=== PATIENT | male | born 1930 | race Caucasian/White ===

== ENCOUNTER 2016-06-15 02:25 | Emergency (ER) | payer MEDICARE ==
[~2016-06-15] VITALS: Ht 170.2 cm; Wt 75.0 kg
[~2016-06-15 02:25] MED LIST: ADVA250A INH; ALBU1AER INH; CALCTAB5 PO; CARB200 PO; DOCU1CAP39 PO; FE T325T PO; FOSA70TA PO; LEVA750T PO; LEVE500 PO; LORTA5 PO; MEGE40TA PO; MIRA33504 PO; MIRA50TA PO; MONT10TA2 PO; PRED10PA PO; PRED20 PO; PROP1TAB66 PO; RIVA10 PO; VITA50TA30 PO; [UNRECOGNIZED DRUG - CODE] PO
[2016-06-15 02:28] VITALS: BP 157/89; PULSE 82; RESP 20; TEMP 98.4; O2SAT 96
[2016-06-15] MEDS ORDERED: SODIUM CHLORIDE 0.9% FLUSH 5 ML FLUSH IVF PRN (02:45)
[2016-06-15] MEDS ORDERED: RESP: ALBUTEROL 2.5 MG/IPRATROPIUM 0.5 MG NEB (SCH) INH ONE (02:45)
[2016-06-15] MEDS ORDERED: VITA50TA30 PO (03:09)
[2016-06-15] MEDS ORDERED: BIO-POW TOPICAL (03:09)
[2016-06-15] MEDS ORDERED: CARB200T PO (03:09)
[2016-06-15] MEDS ORDERED: FLUT1INH INH (03:09)
[2016-06-15] MEDS ORDERED: DOCU100C PO (03:09)
[2016-06-15] MEDS ORDERED: CALCTAB70 PO (03:09)
[2016-06-15] MEDS ORDERED: VENTAER INH ×2 (03:09→05:35)
[2016-06-15] MEDS ORDERED: FERR325T PO (03:09)
[2016-06-15] MEDS ORDERED: MIRA50TA PO (03:09)
[2016-06-15] MEDS ORDERED: CLOP75TA PO (03:09)
[2016-06-15] MEDS ORDERED: LEVO50TA4 PO (03:09)
[2016-06-15] MEDS ORDERED: MAPA500C PO (03:09)
[2016-06-15] MEDS ORDERED: PROP10TA6 PO (03:09)
[2016-06-15] MEDS ORDERED: LEVE500T8 PO (03:09)
[2016-06-15] MEDS ORDERED: AMMO12LO TOPICAL (03:09)
[2016-06-15] MEDS ORDERED: ATOR20TA15 PO (03:09)
[2016-06-15] MEDS ORDERED: ALEN1TAB48 PO (03:09)
[2016-06-15] MEDS ORDERED: MONT10TA4 PO (03:09)
[2016-06-15] MEDS ORDERED: BOUDPST (03:09)
[2016-06-15] MEDS ORDERED: PRESCAP6 PO (03:09)
[2016-06-15 03:23] LABS: HEMATOCRIT 32.2 % (39.0-51.0); MEAN CELL VOLUME 91.7 FL (80.0-100.0); MEAN CORPUSCULAR HGB CONC 34.9 % (32.0-36.0); PLATELET COUNT 158 TH/MM3 (150-450); RED BLOOD COUNT 3.51 MIL/MM3 (4.50-5.90); WHITE BLOOD COUNT 12.7 TH/MM3 (4.0-11.0)
[2016-06-15 03:26] LABS: HEMO FLAGS AUTO DIFF
[2016-06-15] MEDS: RESP: ALBUTEROL 2.5 MG/3 ML NEB (SCH) INH ×2 (03:30→03:31)
[2016-06-15 03:31] VITALS: O2SAT 95
[2016-06-15 03:31] LABS: INTERNATIONAL NORMALIZED RATIO 1.1 RATIO; PROTHROMBIN TIME - PATIENT 12.4 SEC (9.8-11.6)
--- NOTE | 2016-06-15 03:44 | PD ---
HPI Chief Complaint: Respiratory Symptoms Time Seen by Provider: 02:38 Travel History International Travel<30 days: No Contact w/Intl Traveler<30days: No Traveled to known affect area: No History of Present Illness HPI 85yo M with PMH of COPD, anxiety/depression, HLD was sent here from [facility] living for sob since yesterday. +Cough. Denies any fever , chest pain, n/v, abdominal pain, weakness or numbness. Pt is AAOx2. Pt was wheezing as per EVAC and given duonebs x2, methylprednisolone. Pt states he was getting dress from his walker and when he leaned forward to put pants on he fell forward on 06/13/16. As per the paper work, pt had xray right ribs that showed no acute fracture or PTX. Pt also had xray right foot that showed acute to subacute fracture of head of 2nd and 3rd metatarsal bone. PFSH Past Medical History Arthritis: Yes Asthma: Yes Autoimmune Disease: No Blood Disorders: No Anxiety: No Depression: No Heart Rhythm Problems: No Cancer: Yes (prostate cancer) Cardiac Catheterization: Yes (NEG) Cardiovascular Problems: No High Cholesterol: Yes Chemotherapy: No Chest Pain: No Congestive Heart Failure: No COPD: Yes Cerebrovascular Accident: Yes Diabetes: No Diminished Hearing: Yes Endocrine: No Gastrointestinal Disorders: Yes (reflux) GERD: Yes Glaucoma: No Genitourinary: Yes (urinary incontinence) Headaches: Yes Hepatitis: No Hiatal Hernia: No Hypertension: Yes Immune Disorder: No Implanted Vascular Access Dvce: Yes Kidney Stones: No Musculoskeletal: Yes (OK. HIP FX., PELVIC FX.) Neurologic: Yes (hx of seizures, lying flat will make him dizzy hx of vertigo ) Psychiatric: No Reproductive: No Respiratory: Yes (COPD) Immunizations Current: Yes Migraines: No Myocardial Infarction: No Radiation Therapy: No Renal Failure: No Seizures: Yes Sickle Cell Disease: No Sleep Apnea: No Thyroid Disease: No Ulcer: No Tetanus Vaccination: Unknown Past Surgical History Abdominal Surgery: Yes (peg tube placement november 2014, REMOVED) AICD: No Appendectomy: Yes ( CHILD) Arteriovenous Shunt: No Body Medical Devices: HARDWARE OK. 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) Endocrine Surgery: No Eye Surgery: Yes (ok cataract) Genitourinary Surgery: Yes (prostate cancer removal) Gynecologic Surgery: No Insulin Pump: No Joint Replacement: No Neurologic Surgery: No Oral Surgery: No Pacemaker: No Thoracic Surgery: No Tonsillectomy: Yes Other Surgery: Yes (PROSTATECTOMY 2000) Family History Family Myocardial Infarction: Yes (FATHER AT 99 Y/O ) Social History Alcohol Use: No Tobacco Use: No Substance Use: No Allergies-Medications (Allergen,Severity, Reaction): Coded Allergies: Augmentin (Verified Allergy, Severe, Shortness of Breath, 06/15/16) Imipramine (Verified Allergy, Severe, SEIZURE, 06/15/16) Primidone (Verified Allergy, Severe, SEIZURE, 06/15/16) Sulfa (Verified Allergy, Unknown, Rash, 06/15/16) *MDRO Multi-Drug Resistant Organism (Unverified Adverse Reaction, Unknown , 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 MRSA PCR Screen negative 08/25/14 and 08/27/14. Reported Meds & Prescriptions Reported Meds & Active Scripts Active Acetaminophen 325 Mg Tab 325 Mg PO Q4-6H PRN Zithromax Z-Antonio (Azithromycin) 250 Mg Dspk 250 Mg PO DIRECTED 500 MG (2 tabs) day 1, then 1 tab days 2-5. Prednisone 20 Mg Tab 20 Mg PO BID 5 Days Ventolin Hfa 18 GM Inh (Albuterol Sulfate) 90 Mcg/Act Aer 2 Puff INH Q4H PRN Reported Vitamin B-6 (Pyridoxine HCl) 50 Mg Tab 50 Mg PO DAILY Ventolin Hfa 18 GM Inh (Albuterol Sulfate) 90 Mcg/Act Aer 2 Puff INH Q6H PRN Propranolol (Propranolol HCl) 10 Mg Tab 10 Mg PO Q12HR Preservision-Lutein (Multiple Vitamins W/ Minerals) 1 Cap 1 Cap PO DAILY Bio-Statin Powder (Nystatin) 1 Pow Pow 100,000 Units TOPICAL TID Myrbetriq (Mirabegron) 50 Mg Tab 50 Mg PO DAILY Montelukast (Montelukast Sodium) 10 Mg Tab 10 Mg PO HS Mapap (Acetaminophen) 500 Mg Cap 500 Mg PO Q4-6H PRN Levothyroxine (Levothyroxine Sodium) 50 Mcg Tab 50 Mcg PO DAILY Levetiracetam 500 Mg Tab 500 Mg PO TID Docusate Sodium 100 Mg Cap 100 Mg PO DAILY Clopidogrel (Clopidogrel Bisulfate) 75 Mg Tab 75 Mg PO DAILY Carbamazepine 200 Mg Tab 200 Mg PO BID Calcium 600 + D (Calcium Carbonate-Vitamin D) 600-400 Mg-Unit Tab 1 Tab PO DAILY Breo Ellipta Inh (Fluticasone/Vilanterol) 100-25 Mcg/Act Inh 1 Puff INH DAILY Use daily at the same time. Christo Butt Paste (Zinc Oxide (Topical)) 16 % Oin Atorvastatin (Atorvastatin Calcium) 20 Mg Tab 20 Mg PO HS Ammonium Lactate (Lactic Acid (Ammonium Lactate)) 12% Lotn 1 Applic TOPICAL BID Alendronate (Alendronate Sodium) 70 Mg Tab 70 Mg PO Q7D Ferrous Sulfate 325 Mg Tab 325 Mg PO DAILY Review of Systems Except as stated in HPI: all other systems reviewed are Neg Physical Exam Narrative GENERAL: 85yo M in mild distress. SKIN: Warm and dry. HEAD: Atraumatic. Normocephalic. EYES: Pupils equal and round. No scleral icterus. No injection or drainage. ENT: No nasal bleeding or discharge. Mucous membranes pink and moist. NECK: Trachea midline. No JVD. CARDIOVASCULAR: Regular rate and rhythm. No murmur appreciated. RESPIRATORY: No accessory muscle use. End expiratory wheezing bilaterally. GASTROINTESTINAL: Abdomen soft, non-tender, nondistended. MUSCULOSKELETAL: No obvious deformities. No clubbing. No cyanosis. No edema. NEUROLOGICAL: Awake and alert. No obvious cranial nerve deficits. Motor grossly within normal limits. Normal speech. PSYCHIATRIC: Appropriate mood and affect; insight and judgment normal. Data Data Last Documented VS Vital Signs Date Time Temp Pulse Resp B/P Pulse Ox O2 Delivery O2 Flow Rate FiO2 06/15/16 04:20 83 18 142/62 94 Nasal Cannula 2 06/15/16 02:28 98.4 Orders Complete Blood Count With Diff (06/15/16 02:38) Basic Metabolic Panel (Bmp) (06/15/16 02:38) B-Type Natriuretic Peptide (06/15/16 02:38) Prothrombin Time / Inr (Pt) (06/15/16 02:38) Magnesium (Mg) (06/15/16 02:38) Ckmb (Isoenzyme) Profile (06/15/16 02:38) Troponin I (06/15/16 02:38) Influenzae A/B Antigen (06/15/16 02:38) Blood Culture (06/15/16 02:38) Iv Access Insert/Monitor (06/15/16 02:38) Ecg Monitoring (06/15/16 02:38) Oximetry (06/15/16 02:38) Oxygen Administration (06/15/16 02:38) Chest, Single Ap (06/15/16 02:38) Sodium Chloride 0.9% Flush (Ns Flush) (06/15/16 02:45) Albuterol-Ipratropium Neb (Duoneb Neb) (06/15/16 02:45) Albuterol Neb (Albuterol Neb) (06/15/16 02:45) Electrocardiogram (06/15/16 ) Labs Laboratory Tests Test 06/15/16 03:00 White Blood Count 12.7 TH/MM3 Red Blood Count 3.51 MIL/MM3 Hemoglobin 11.2 GM/DL Hematocrit 32.2 % Mean Corpuscular Volume 91.7 FL Mean Corpuscular Hemoglobin 32.0 PG Mean Corpuscular Hemoglobin 34.9 % Concent Red Cell Distribution Width 14.0 % Platelet Count 158 TH/MM3 Mean Platelet Volume 8.4 FL Neutrophils (%) (Auto) % Lymphocytes (%) (Auto) % Monocytes (%) (Auto) % Eosinophils (%) (Auto) % Basophils (%) (Auto) % Neutrophils # (Auto) TH/MM3 Lymphocytes # (Auto) TH/MM3 Monocytes # (Auto) TH/MM3 Eosinophils # (Auto) TH/MM3 Basophils # (Auto) TH/MM3 CBC Comment AUTO DIFF Differential Total Cells 100 Counted Neutrophils % (Manual) 41 % Band Neutrophils % 8 % Lymphocytes % 12 % Monocytes % 10 % Eosinophils % 27 % Basophils % 1 % Neutrophils # (Manual) 6.4 TH/MM3 Promyelocytes 1 % Differential Comment FINAL DIFF MANUAL Platelet Estimate NORMAL Platelet Morphology Comment NORMAL Red Cell Morphology Comment NORMAL Prothrombin Time 12.4 SEC Prothromb Time International 1.1 RATIO Ratio Sodium Level 136 MEQ/L Potassium Level 4.0 MEQ/L Chloride Level 103 MEQ/L Carbon Dioxide Level 24.4 MEQ/L Anion Gap 9 MEQ/L Blood Urea Nitrogen 17 MG/DL Creatinine 0.92 MG/DL Estimat Glomerular Filtration 78 ML/MIN Rate Random Glucose 129 MG/DL Calcium Level 8.2 MG/DL Magnesium Level 2.4 MG/DL Total Creatine Kinase 16 U/L Troponin I LESS THAN 0.02 NG/ML B-Type Natriuretic Peptide 358 PG/ML MDM Medical Decision Making Medical Screen Exam Complete: Yes Emergency Medical Condition: Yes Interpretation(s) EKG: Sinus at 85bpm with PACs. RBBB. Q wave II, III, aVF. Differential Diagnosis COPD exacerbation vs. PNA vs. ACS Narrative Course 85yo M with COPD exacerbation. Pt is saturating well and given duonebs x2 and methylprednisolone by EVAC. Pt already feels better but still has wheezing bilaterally. Pt given duoneb x1 and albuterol neb x2 here. Pt reevaluated at bedside and no longer wheezing. Pt denies any chest pain or sob. Pt is saturating in the low 90s on room air. Lungs are now clear. Labs reviewed, mild leukocytosis at 12.7. Troponin is negative. BNP 358. CXR showed minimal patchy densities left lower lobe, stable. Right lower lateral rib fracture likely eighth rib. No PTX. Will give azithromycin since pt has COPD. Pt is from assisted living and can be transported back. Return precautions given. Diagnosis Primary Impression: COPD exacerbation Additional Impression: Rib fracture Qualified Code: S22.31XA - Closed fracture of one rib of right side, initial encounter Patient Instructions: General Instructions Departure Forms: Tests/Procedures Additional Instructions: Please follow up with your PMD in 1-2 days. Return to the ED if your symptoms worsen. Med/Other Pt SpecificInfo: Prescription(s) given Scripts Acetaminophen 325 Mg Ars663 Mg PO Q4-6H PRN (PAIN SCALE 1 TO 4) #20 TAB Ref 0 Prov:Lisa Loco DO 06/15/16 Azithromycin (Zithromax Z-Antonio)250 Mg [id number] Mg PO DIRECTED #1 DSPK Ref 0 500 MG (2 tabs) day 1, then 1 tab days 2-5. Prov:Lisa Loco DO 06/15/16 Prednisone 20 Mg Tab20 Mg PO BID 5 Days Ref 0 Prov:Lisa Loco DO 06/15/16 Albuterol 18 GM Inh (Ventolin Hfa 18 GM Inh)90 Mcg/Act Aer2 Puff INH Q4H PRN ( SHORTNESS OF BREATH) #1 INHALER Ref 0 Prov:Lisa Loco DO 06/15/16 Disposition: 01 DISCHARGE HOME Condition: Stable Lisa Loco DO Jun 15, 2016 03:44
[2016-06-15 04:10] LABS: ANION GAP 9 MEQ/L (5-15); BICARBONATE 24.4 MEQ/L (21.0-32.0); BLOOD UREA NITROGEN 17 MG/DL (7-18); CHLORIDE 103 MEQ/L (98-107); GLOMERULAR FILTRATION RATE 78 ML/MIN (>89); MAGNESIUM 2.4 MG/DL (1.5-2.5); SODIUM (NA) 136 MEQ/L (136-145)
[2016-06-15 04:14] LABS: CREATINE KINASE 16 U/L (39-308)
[2016-06-15 04:20] VITALS: BP 142/62; PULSE 83; RESP 18; O2SAT 94
[2016-06-15 04:28] LABS: BANDS 8 % (0-6); BASOPHILS 1 % (0-2); EOSINOPHILS 27 % (0-4); NEUTROPHIL # MANUAL DIFF 6.4 TH/MM3 (1.8-7.7); POLYS (SEG NEUTROPHILS) 41 % (16-70); PROMYELOCYTES 1 % (0-0); SCAN/DIFF FINAL DIFF MANUAL; WBC DIFF SAMPLE 100
[2016-06-15 04:31] LABS: PLATELET ESTIMATE SMEAR NORMAL (NORMAL); PLATELET MORPHOLOGY NORMAL (NORMAL)
--- NOTE | 2016-06-15 05:30 | RADRPT ---
EXAM DATE/TIME: 06/15/2016 03:12 [facility] COMPARISON: CHEST SINGLE AP, November 18, 2015, 20:53. INDICATIONS : Right chest pain post fall. MEDICAL HISTORY : None. SURGICAL HISTORY : None. ENCOUNTER: Initial ACUITY: 2 days PAIN SCORE: 9/10 LOCATION: Right chest FINDINGS: A single view of the chest demonstrates minimal patchy density left lower lobe without evidence of ma ss, infiltrate or effusion. The cardiomediastinal contours are unremarkable. Osseous structures are intact. Degenerative changes both shoulders. Right lateral eighth rib fracture. CONCLUSION: 1. Minimal patchy densities left lower lobe, stable. 2. Right lower lateral rib fracture likely eighth rib. No pneumothorax. Khai Vasquez MD on June 15, 2016 at 5:27 Board Certified Radiologist. This report was verified electronically.
[2016-06-15] MEDS ORDERED: ZITHTAB PO (05:35)
[2016-06-15] MEDS ORDERED: PRED20 PO (05:35)
[2016-06-15] MEDS ORDERED: ACET325T PO (05:47)
--- NOTE | 2016-06-15 22:29 | EKG ---
Date Performed: 06/15/2016 Time Performed: 02:34:39 PTAGE: 85 years EKG: ATRIAL FIBRILLATION MARKED LEFT AXIS DEVIATION RIGHT BUNDLE BRANCH BLOCK POSSIBLE ANTERIOR MYOCARDIAL INFARCTION ABNORMAL ECG NO PREVIOUS TRACING DOCTOR: Alan Lentz Interpretating Date/Time 06/15/2016 22:26:21
== END 2016-06-15 08:46 | disposition home or self-care (01) ==
LOC: NEPC 02:25 → NEPD 08:46
DX: J44.1 Chronic obstructive pulmonary disease with (acute) exacerbation (principal); S22.31XA Fracture of one rib, right side, initial encounter for closed fracture; R94.31 Abnormal electrocardiogram [ECG] [EKG]; I10 Essential (primary) hypertension; E78.00 Pure hypercholesterolemia, unspecified; Z87.09 Personal history of other diseases of the respiratory system; Z85.46 Personal history of malignant neoplasm of prostate; Z86.73 Personal history of transient ischemic attack (TIA), and cerebral infarction without residual deficits; Z87.19 Personal history of other diseases of the digestive system; Z87.448 Personal history of other diseases of urinary system; Z86.69 Personal history of other diseases of the nervous system and sense organs; Z87.39 Personal history of other diseases of the musculoskeletal system and connective tissue; W18.39XA Other fall on same level, initial encounter; Y92.129 Unspecified place in nursing home as the place of occurrence of the external cause
CPT/HCPCS: 71010; 80048; 82550; 83735; 83880; 84484; 85007; 85027; 85610; 86403; 87040; 87077; 87186; 87205; 87804; 93005; 94640; 94664; 99284; J7613

== ENCOUNTER 2016-06-18 17:04 | Inpatient (IN) | payer MEDICARE ==
[~2016-06-18] VITALS: Ht 170.2 cm; Wt 62.1 kg
[~2016-06-18 17:04] MED LIST changes: +ACET325T PO; -ADVA250A INH; -ALBU1AER INH; +ALEN1TAB48 PO; +AMMO12LO TOPICAL; +ATOR20TA15 PO; +BIO-POW TOPICAL; +BOUDPST; -CALCTAB5 PO; +CALCTAB70 PO; -CARB200 PO; +CARB200T PO; +CLOP75TA PO; +DOCU100C PO; -DOCU1CAP39 PO; -FE T325T PO; +FERR325T PO; +FLUT1INH INH; -FOSA70TA PO; -LEVA750T PO; -LEVE500 PO; +LEVE500T8 PO; +LEVO50TA4 PO; -LORTA5 PO; +MAPA500C PO; -MEGE40TA PO; -MIRA33504 PO; -MONT10TA2 PO; +MONT10TA4 PO; -PRED10PA PO; +PRESCAP6 PO; +PROP10TA6 PO; -PROP1TAB66 PO; -RIVA10 PO; +VENTAER INH; +ZITHTAB PO; -[UNRECOGNIZED DRUG - CODE] PO
[2016-06-18 17:56] VITALS: BP 126/71; PULSE 73; RESP 18; TEMP 98.7; O2SAT 97
[2016-06-18 18:28] VITALS: O2SAT 97
[2016-06-18 18:43] LABS: BLOOD, URINE NEG (NEG); GLUCOSE,URINE NEG (NEG); KETONE, URINE NEG (NEG); NITRITE,URINE NEG (NEG); URINE COLOR YELLOW (YELLW/STRAW)
[2016-06-18 18:45] LABS: AUTOMATED NEUTROPHIL # 5.4 TH/MM3 (1.8-7.7); BASOPHIL # 0.1 TH/MM3 (0-0.2); BASOPHIL % 1.1 % (0.0-2.0); EOSINOPHIL # 1.9 TH/MM3 (0-0.4); EOSINOPHIL % 13.9 % (0.0-4.0); HEMATOCRIT 33.2 % (39.0-51.0); HEMO FLAGS AUTO DIFF; LYMPH % 33.3 % (9.0-44.0); LYMPHOCYTE # 4.4 TH/MM3 (1.0-4.8); MEAN CELL VOLUME 92.4 FL (80.0-100.0); MEAN CORPUSCULAR HEMOGLOBIN 31.7 PG (27.0-34.0); MEAN CORPUSCULAR HGB CONC 34.3 % (32.0-36.0); MONO % 11.5 % (0.0-8.0); NEUT % 40.2 % (16.0-70.0); PLATELET COUNT 256 TH/MM3 (150-450); RED BLOOD COUNT 3.59 MIL/MM3 (4.50-5.90); WHITE BLOOD COUNT 13.4 TH/MM3 (4.0-11.0)
[2016-06-18 18:53] LABS: APTT (PATIENT) 25.1 SEC (24.3-30.1); PROTHROMBIN TIME - PATIENT 11.5 SEC (9.8-11.6)
[2016-06-18 18:59] LABS: COMMENT (UR) CULT NOT INDICATED; CULTURE IF INDICATED CULT NOT INDICATED
[2016-06-18 19:02] LABS: ANION GAP 8 MEQ/L (5-15); AST (GOT) 18 U/L (15-37); BICARBONATE 28.4 MEQ/L (21.0-32.0); BLOOD UREA NITROGEN 17 MG/DL (7-18); CHLORIDE 104 MEQ/L (98-107); GLOMERULAR FILTRATION RATE 87 ML/MIN (>89); SODIUM (NA) 140 MEQ/L (136-145)
[2016-06-18 19:06] LABS: ALKALINE PHOSPHATASE 107 U/L (45-117); ALT (GPT) 35 U/L (12-78); TOTAL BILIRUBIN ADULT 0.4 MG/DL (0.2-1.0)
--- NOTE | 2016-06-18 19:06 | RADRPT ---
EXAM DATE/TIME: 06/18/2016 18:42 [facility] COMPARISON: CHEST SINGLE AP, June 15, 2016, 3:12. INDICATIONS : Right chest pain, shortness of breath for 3 days. MEDICAL HISTORY : Chronic obstructive pulmonary disease. SURGICAL HISTORY : None. ENCOUNTER: Initial ACUITY: 3 days PAIN SCORE: 8/10 LOCATION: Right chest FINDINGS: A single view of the chest demonstrates the lungs to be symmetrically aerated without evidence of mas s, infiltrate or effusion. The cardiomediastinal contours are unremarkable. Osseous structures are intact. CONCLUSION: No acute disease. Alonso Sahu MD FACR on June 18, 2016 at 19:04 Board Certified Radiologist. This report was verified electronically.
[2016-06-18 19:08] VITALS: BP 183/80; PULSE 64; RESP 16; O2SAT 99
[2016-06-18] MEDS ORDERED: VANCOMYCIN INJ 1,000 MG in SODIUM CHLOR 0.9% 250 ML INJ 250 ML IV ONE (19:15)
--- NOTE | 2016-06-18 19:19 | PD ---
HPI Chief Complaint: Abnormal Results Time Seen by Provider: 19:16 Travel History International Travel<30 days: No Contact w/Intl Traveler<30days: No Traveled to known affect area: No History of Present Illness HPI 85-year-old male that presents to the ED for evaluation of positive blood cultures. Patient was called back from her facility secondary to positive blood cultures that were performed on the when he was seen here for COPD exacerbation. At the time patient had severe shortness of breath but was found to be well enough to go back home. Patient was sent home with antibiotics including azithromycin as well as breathing treatments. Patient states that he does not have any fevers chills or sweats. He denies any new symptoms. Per patient she shortness of breath this is normal. Patient has a history of MRSA. Patient denies any new symptoms. No nausea or vomiting. No bowel movement issues. No abdominal pain. No chest pain. Per patient and again his shortness of breath is within normal limits. He has been compliant with his medications. Patient comes [facility]. PFSH Past Medical History Arthritis: Yes Asthma: Yes Autoimmune Disease: No Blood Disorders: No Anxiety: No Depression: No Heart Rhythm Problems: No Cancer: Yes (prostate cancer) Cardiac Catheterization: Yes (UNSURE) Cardiovascular Problems: No High Cholesterol: Yes Chemotherapy: No Chest Pain: No Congestive Heart Failure: No COPD: Yes Cerebrovascular Accident: Yes (TIA) Diabetes: No Diminished Hearing: Yes Endocrine: No Gastrointestinal Disorders: Yes (reflux) GERD: Yes Glaucoma: No Genitourinary: Yes (urinary incontinence) Headaches: Yes Hepatitis: No Hiatal Hernia: No Hypertension: Yes Immune Disorder: No Implanted Vascular Access Dvce: Yes Kidney Stones: No Musculoskeletal: Yes (OK. HIP FX., PELVIC FX.) Neurologic: Yes (hx of seizures, lying flat will make him dizzy hx of vertigo ) Psychiatric: No Reproductive: No Respiratory: Yes (COPD ) Immunizations Current: Yes Migraines: No Myocardial Infarction: No Radiation Therapy: No Renal Failure: No Seizures: Yes Sickle Cell Disease: No Sleep Apnea: No Thyroid Disease: No Ulcer: No Tetanus Vaccination: Unknown Influenza Vaccination: Yes Past Surgical History Abdominal Surgery: Yes (peg tube placement november 2014, REMOVED) AICD: No Appendectomy: Yes ( CHILD) Arteriovenous Shunt: No Body Medical Devices: HARDWARE OK. 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) Endocrine Surgery: No Eye Surgery: Yes (ok cataract) Genitourinary Surgery: Yes (prostate cancer removal) Gynecologic Surgery: No Insulin Pump: No Joint Replacement: No Neurologic Surgery: No Oral Surgery: No Pacemaker: No Thoracic Surgery: No Tonsillectomy: Yes Other Surgery: Yes (PROSTATECTOMY 2000) Family History Family Myocardial Infarction: Yes (FATHER AT 99 Y/O ) Social History Alcohol Use: No Tobacco Use: No Substance Use: No Allergies-Medications (Allergen,Severity, Reaction): Coded Allergies: Augmentin (Verified Allergy, Severe, Shortness of Breath, 06/18/16) Imipramine (Verified Allergy, Severe, SEIZURE, 06/18/16) Primidone (Verified Allergy, Severe, SEIZURE, 06/18/16) Sulfa (Verified Allergy, Unknown, Rash, 06/18/16) *MDRO Multi-Drug Resistant Organism (Unverified Adverse Reaction, Unknown , 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 MRSA PCR Screen negative 08/25/14 and 08/27/14. Reported Meds & Prescriptions Reported Meds & Active Scripts Active Acetaminophen 325 Mg Tab 325 Mg PO Q4-6H PRN Zithromax Z-Antonio (Azithromycin) 250 Mg Dspk 250 Mg PO DIRECTED 500 MG (2 tabs) day 1, then 1 tab days 2-5. Prednisone 20 Mg Tab 20 Mg PO BID 5 Days Ventolin Hfa 18 GM Inh (Albuterol Sulfate) 90 Mcg/Act Aer 2 Puff INH Q4H PRN Reported Vitamin B-6 (Pyridoxine HCl) 50 Mg Tab 50 Mg PO DAILY Ventolin Hfa 18 GM Inh (Albuterol Sulfate) 90 Mcg/Act Aer 2 Puff INH Q6H PRN Propranolol (Propranolol HCl) 10 Mg Tab 10 Mg PO Q12HR Preservision-Lutein (Multiple Vitamins W/ Minerals) 1 Cap 1 Cap PO DAILY Bio-Statin Powder (Nystatin) 1 Pow Pow 100,000 Units TOPICAL TID Myrbetriq (Mirabegron) 50 Mg Tab 50 Mg PO DAILY Montelukast (Montelukast Sodium) 10 Mg Tab 10 Mg PO HS Mapap (Acetaminophen) 500 Mg Cap 500 Mg PO Q4-6H PRN Levothyroxine (Levothyroxine Sodium) 50 Mcg Tab 50 Mcg PO DAILY Levetiracetam 500 Mg Tab 500 Mg PO TID Docusate Sodium 100 Mg Cap 100 Mg PO DAILY Clopidogrel (Clopidogrel Bisulfate) 75 Mg Tab 75 Mg PO DAILY Carbamazepine 200 Mg Tab 200 Mg PO BID Calcium 600 + D (Calcium Carbonate-Vitamin D) 600-400 Mg-Unit Tab 1 Tab PO DAILY Breo Ellipta Inh (Fluticasone/Vilanterol) 100-25 Mcg/Act Inh 1 Puff INH DAILY Use daily at the same time. Boudreauxs Butt Paste (Zinc Oxide (Topical)) 16 % Oin Atorvastatin (Atorvastatin Calcium) 20 Mg Tab 20 Mg PO HS Ammonium Lactate (Lactic Acid (Ammonium Lactate)) 12% Lotn 1 Applic TOPICAL BID Alendronate (Alendronate Sodium) 70 Mg Tab 70 Mg PO Q7D Ferrous Sulfate 325 Mg Tab 325 Mg PO DAILY Review of Systems Except as stated in HPI: all other systems reviewed are Neg Physical Exam Narrative GENERAL: SKIN: Warm and dry. HEAD: Atraumatic. Normocephalic. EYES: Pupils equal and round. No scleral icterus. No injection or drainage. ENT: No nasal bleeding or discharge. Mucous membranes pink and moist. Tongue is midline. No uvula deviation. NECK: Trachea midline. No JVD. CARDIOVASCULAR: Regular rate and rhythm. No murmurs, S3, S4. RESPIRATORY: No accessory muscle use. Mild wheezing heard in all lung ashby. Breath sounds equal bilaterally. GASTROINTESTINAL: Abdomen soft, non-tender, nondistended. Hepatic and splenic margins not palpable. MUSCULOSKELETAL: Extremities without clubbing, cyanosis, or edema. No obvious deformities. Full range of motion of the upper and lower extremities bilaterally. 2+ pulses bilaterally. NEUROLOGICAL: Awake and alert. No obvious cranial nerve deficits. Motor grossly within normal limits. Five out of 5 muscle strength in the arms and legs. Normal speech. PSYCHIATRIC: Appropriate mood and affect; insight and judgment normal. Data Data Last Documented VS Vital Signs Date Time Temp Pulse Resp B/P Pulse Ox O2 Delivery O2 Flow Rate FiO2 06/18/16 19:08 64 16 183/80 99 Room Air 06/18/16 17:56 98.7 Orders Complete Blood Count With Diff (06/18/16 18:09) Comprehensive Metabolic Panel (06/18/16 18:09) Prothrombin Time / Inr (Pt) (06/18/16 18:09) Act Partial Throm Time (Ptt) (06/18/16 18:09) Lactic Acid Sepsis Protocol (06/18/16 18:09) Urinalysis - C+S If Indicated (06/18/16 18:09) Blood Culture (06/18/16 18:09) Chest, Single Ap (06/18/16 18:09) Blood Glucose (06/18/16 18:09) Ecg Monitoring (06/18/16 18:09) Iv Access Insert/Monitor (06/18/16 18:09) Oximetry (06/18/16 18:09) Oxygen Administration (06/18/16 18:09) Vancomycin Inj (Vancomycin Inj) (06/18/16 19:15) Labs Laboratory Tests Test 06/18/16 06/18/16 18:15 18:20 Urine Color YELLOW Urine Turbidity CLEAR Urine pH 6.0 Urine Specific Gregory 1.011 Urine Protein TRACE mg/dL Urine Glucose (UA) NEG mg/dL Urine Ketones NEG mg/dL Urine Occult Blood NEG Urine Nitrite NEG Urine Bilirubin NEG Urine Urobilinogen LESS THAN 2.0 MG/DL Urine Leukocyte Esterase NEG Urine RBC LESS THAN 1 /hpf Microscopic Urinalysis Comment CULT NOT INDICATED White Blood Count 13.4 TH/MM3 Red Blood Count 3.59 MIL/MM3 Hemoglobin 11.4 GM/DL Hematocrit 33.2 % Mean Corpuscular Volume 92.4 FL Mean Corpuscular Hemoglobin 31.7 PG Mean Corpuscular Hemoglobin 34.3 % Concent Red Cell Distribution Width 14.0 % Platelet Count 256 TH/MM3 Mean Platelet Volume 7.9 FL Neutrophils (%) (Auto) 40.2 % Lymphocytes (%) (Auto) 33.3 % Monocytes (%) (Auto) 11.5 % Eosinophils (%) (Auto) 13.9 % Basophils (%) (Auto) 1.1 % Neutrophils # (Auto) 5.4 TH/MM3 Lymphocytes # (Auto) 4.4 TH/MM3 Monocytes # (Auto) 1.5 TH/MM3 Eosinophils # (Auto) 1.9 TH/MM3 Basophils # (Auto) 0.1 TH/MM3 CBC Comment AUTO DIFF Differential Comment AUTO DIFF CONFIRMED Platelet Estimate NORMAL Platelet Morphology Comment NORMAL Red Cell Morphology Comment NORMAL Prothrombin Time 11.5 SEC Prothromb Time International 1.0 RATIO Ratio Activated Partial 25.1 SEC Thromboplast Time Sodium Level 140 MEQ/L Potassium Level 4.0 MEQ/L Chloride Level 104 MEQ/L Carbon Dioxide Level 28.4 MEQ/L Anion Gap 8 MEQ/L Blood Urea Nitrogen 17 MG/DL Creatinine 0.84 MG/DL Estimat Glomerular Filtration 87 ML/MIN Rate Random Glucose 85 MG/DL Lactic Acid Level 1.2 mmol/L Calcium Level 8.6 MG/DL Total Bilirubin 0.4 MG/DL Aspartate Amino Transf 18 U/L (AST/SGOT) Alanine Aminotransferase 35 U/L (ALT/SGPT) Alkaline Phosphatase 107 U/L Total Protein 8.1 GM/DL Albumin 3.6 GM/DL MDM Medical Decision Making Medical Screen Exam Complete: Yes Emergency Medical Condition: Yes Medical Record Reviewed: Yes Interpretation(s) CBC & BMP Diagram 06/18/16 18:20 lactic acid WNL Chest x-ray negative. Urine was negative. CXR negative Differential Diagnosis Bacteremia versus sepsis versus UTI versus leukocytosis versus pneumonia Narrative Course 85-year-old male that presents to the ED for evaluation of possible cultures. Patient was properly examined and was found to have signs and symptoms consistent with appears to be positive blood cultures. I reviewed his medical records and she did had to sets of positive blood cultures with staph coagulase- negative positive on the anaerobe and aerobe culture. Case was discussed my attending who recommends IV, labs and likely admission. Labs, x-ray, imaging were all done and noted intake and possibly was that the Prilosec and was a slightly elevated with a leukocytosis. Blood cultures were done. Patient tolerated taking azithromycin. Recommendation at this time is for admission. This was discussed with the patient and agrees with plan. Patient was started on vancomycin IV. Case was discussed with the residents who agreed admission for bacteremia leukocytosis of unknown etiology. Diagnosis Primary Impression: Bacteremia due to Gram-negative bacteria Additional Impression: Leukocytosis Qualified Code: D72.825 - Bandemia Admitting Information Admitting Physician Requests: Admit Tyler Macario Jun 18, 2016 19:19
[2016-06-18 19:22] LABS: PLATELET ESTIMATE SMEAR NORMAL (NORMAL); PLATELET MORPHOLOGY NORMAL (NORMAL); SCAN/DIFF AUTO DIFF CONFIRMED
--- NOTE | 2016-06-18 19:32 | HHI.HP ---
HPI Service Family Medicine Team A Dr. Olmedo attending Dr. Wilson PGY2 Dr. Ramos PGY1 Dr. Lema PGY3 Primary Care Physician Eleanor Torres MD Admission Diagnosis bacterimia, leukocytosis Diagnoses: International Travel<30 Days: No Contact w/Intl Traveler<30days: No Known Affected Area: No History of Present Illness This is a 85-year-old man who is a [facility] patient, with a medical history significant for COPD was present in the ED for evaluation of blood cultures. The patient was seen in the ED on 06/15/2015 for cough. The patient was discharged from the ED on azithromycin and by mouth steroids (five day course). He was advised to continue his breathing treatments. Blood cultures were obtained at that time. Blood cultures have resulted positive for coagulase- negative staphylococci x2. The patient was contacted at his living facility and informed to re-presented to the ED. There have been no new symptoms since the time of discharge. The patient denies fevers or chills. He states that he has been coughing some at home. When he was here on the he had also suffered a fall at home and a right rib fracture was noted. The patient continues to have some pain from this. He uses a walker at baseline and has nursing help with bathing since his rib fracture. Review of Systems ROS Limitations: Poor Historian (some dementia) Constitutional: DENIES: Fever, Chills Eyes: DENIES: Blurred vision Ears, nose, mouth, throat: DENIES: Tinnitus Respiratory: COMPLAINS OF: Cough, Wheezing, Shortness of breath Cardiovascular: DENIES: Chest pain, Palpitations Gastrointestinal: DENIES: Abdominal pain, Nausea, Vomiting Musculoskeletal: COMPLAINS OF: Joint pain, Muscle aches Neurologic: COMPLAINS OF: Poor Balance Psychiatric: DENIES: Mood changes Past Family Social History Past Medical History Hypertension, prostate cancer S/P prostatectomy 2000,COPD, GERD, vertigo, CAD, seizure disorder, hypothyroidism? Past Surgical History Bilateral hip surgery appendectomy, left ear surgery, prostatectomy 2000 Reported Medications Acetaminophen 325 Mg Tab 325 Mg PO Q4-6H PRN Zithromax Z-Antonio (Azithromycin) 250 Mg Dspk 250 Mg PO DIRECTED 500 MG (2 tabs) day 1, then 1 tab days 2-5. Prednisone 20 Mg Tab 20 Mg PO BID 5 Days Ventolin Hfa 18 GM Inh (Albuterol Sulfate) 90 Mcg/Act Aer 2 Puff INH Q4H PRN Vitamin B-6 (Pyridoxine HCl) 50 Mg Tab 50 Mg PO DAILY Ventolin Hfa 18 GM Inh (Albuterol Sulfate) 90 Mcg/Act Aer 2 Puff INH Q6H PRN Propranolol (Propranolol HCl) 10 Mg Tab 10 Mg PO Q12HR Preservision-Lutein (Multiple Vitamins W/ Minerals) 1 Cap 1 Cap PO DAILY Bio-Statin Powder (Nystatin) 1 Pow Pow 100,000 Units TOPICAL TID Myrbetriq (Mirabegron) 50 Mg Tab 50 Mg PO DAILY Montelukast (Montelukast Sodium) 10 Mg Tab 10 Mg PO HS Mapap (Acetaminophen) 500 Mg Cap 500 Mg PO Q4-6H PRN Levothyroxine (Levothyroxine Sodium) 50 Mcg Tab 50 Mcg PO DAILY Levetiracetam 500 Mg Tab 500 Mg PO TID Docusate Sodium 100 Mg Cap 100 Mg PO DAILY Clopidogrel (Clopidogrel Bisulfate) 75 Mg Tab 75 Mg PO DAILY Carbamazepine 200 Mg Tab 200 Mg PO BID Calcium 600 + D (Calcium Carbonate-Vitamin D) 600-400 Mg-Unit Tab 1 Tab PO DAILY Breo Ellipta Inh (Fluticasone/Vilanterol) 100-25 Mcg/Act Inh 1 Puff INH DAILY Use daily at the same time. Boudreauxs Butt Paste (Zinc Oxide (Topical)) 16 % Oin Atorvastatin (Atorvastatin Calcium) 20 Mg Tab 20 Mg PO HS Ammonium Lactate (Lactic Acid (Ammonium Lactate)) 12% Lotn 1 Applic TOPICAL BID Alendronate (Alendronate Sodium) 70 Mg Tab 70 Mg PO Q7D Ferrous Sulfate 325 Mg Tab 325 Mg PO DAILY Allergies: Coded Allergies: Augmentin (Verified Allergy, Severe, Shortness of Breath, 06/18/16) Imipramine (Verified Allergy, Severe, SEIZURE, 06/18/16) Primidone (Verified Allergy, Severe, SEIZURE, 06/18/16) Sulfa (Verified Allergy, Unknown, Rash, 06/18/16) *MDRO Multi-Drug Resistant Organism (Unverified Adverse Reaction, Unknown , 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 MRSA PCR Screen negative 08/25/14 and 08/27/14. Physical Exam Vital Signs Vital Signs Date Time Temp Pulse Resp B/P Pulse Ox O2 Delivery O2 Flow Rate FiO2 1/14/17 19:08 64 16 183/80 99 Room Air 06/18/16 18:28 97 Room Air 06/18/16 18:28 97 Room Air 06/18/16 17:56 98.7 73 18 126/71 97 Physical Exam GENERAL: This is a well-nourished, well-developed patient, in no apparent distress. SKIN: multiple actinic keratoses on face and scalp. HEAD: Atraumatic. Normocephalic. No temporal or scalp tenderness. EYES: Pupils equal round and reactive. Extraocular motions intact. No scleral icterus. No injection or drainage. ENT: Nose without bleeding, purulent drainage or septal hematoma. Throat without erythema, tonsillar hypertrophy or exudate. Uvula midline. Airway patent. NECK: Trachea midline. No JVD or lymphadenopathy. Supple, nontender, no meningeal signs. CARDIOVASCULAR: Distant heart sounds, Regular rate and rhythm without murmurs, gallops, or rubs. RESPIRATORY: Diffuse bilateral expiratory wheezes, no rales or rhonchi. Taking deep breaths causes him to cough. GASTROINTESTINAL: Abdomen soft, non-tender, nondistended. No hepato-splenomegaly , or palpable masses. No guarding. MUSCULOSKELETAL: Extremities without clubbing, cyanosis, or edema. No joint tenderness, effusion, or edema noted. No calf tenderness. NEUROLOGICAL: Awake and alert. Cranial nerves II through XII intact. Motor and sensory grossly within normal limits. He his able to life both LE against gravity. Client Portfolio Manager strength equal bilat. Normal speech. Laboratory Laboratory Tests Test 06/18/16 06/18/16 18:15 18:20 Urine Color YELLOW Urine Turbidity CLEAR Urine pH 6.0 Urine Specific [place] 1.011 Urine Protein TRACE Urine Glucose (UA) NEG Urine Ketones NEG Urine Occult Blood NEG Urine Nitrite NEG Urine Bilirubin NEG Urine Urobilinogen LESS THAN 2.0 Urine Leukocyte Esterase NEG Urine RBC LESS THAN 1 Microscopic Urinalysis Comment CULT NOT INDICATED White Blood Count 13.4 Red Blood Count 3.59 Hemoglobin 11.4 Hematocrit 33.2 Mean Corpuscular Volume 92.4 Mean Corpuscular Hemoglobin 31.7 Mean Corpuscular Hemoglobin 34.3 Concent Red Cell Distribution Width 14.0 Platelet Count 256 Mean Platelet Volume 7.9 Neutrophils (%) (Auto) 40.2 Lymphocytes (%) (Auto) 33.3 Monocytes (%) (Auto) 11.5 Eosinophils (%) (Auto) 13.9 Basophils (%) (Auto) 1.1 Neutrophils # (Auto) 5.4 Lymphocytes # (Auto) 4.4 Monocytes # (Auto) 1.5 Eosinophils # (Auto) 1.9 Basophils # (Auto) 0.1 CBC Comment AUTO DIFF Differential Comment AUTO DIFF CONFIRMED Platelet Estimate NORMAL Platelet Morphology Comment NORMAL Red Cell Morphology Comment NORMAL Prothrombin Time 11.5 Prothromb Time International 1.0 Ratio Activated Partial 25.1 Thromboplast Time Sodium Level 140 Potassium Level 4.0 Chloride Level 104 Carbon Dioxide Level 28.4 Anion Gap 8 Blood Urea Nitrogen 17 Creatinine 0.84 Estimat Glomerular Filtration 87 Rate Random Glucose 85 Lactic Acid Level 1.2 Calcium Level 8.6 Total Bilirubin 0.4 Aspartate Amino Transf 18 (AST/SGOT) Alanine Aminotransferase 35 (ALT/SGPT) Alkaline Phosphatase 107 Total Protein 8.1 Albumin 3.6 Date/Time Procedure Status Source Growth 06/18/16 18:20 Aerobic Blood Culture Received Blood Peripheral Pending 06/18/16 18:20 Anaerobic Blood Culture Received Blood Peripheral Pending Result Diagram: 06/18/16 1820 06/18/16 1820 Imaging CXR: negative for acute disease Assessment and Plan Assessment and Plan 85 yo male re-presenting to ED for positive blood cultures. Code Status Full Discussed Condition With Dr. Wilson ED PA wdw Dr. Olmedo Problem List: (1) Blood bacterial culture positive Status: Acute Plan: - Cultures grew staphylococci coagulase negative x2. Unlikely containment as it was seen in two tubes. Afebrile, lactic acid 1.2. The patient has no foreign devices and is not immunocompromised, except that he is on a low dose steroid for his COPD exacerbation. - Repeat cultures obtained - IV vancomycin (will d/c if repeat cultures are negative) (2) COPD (chronic obstructive pulmonary disease) Status: Acute Plan: CXR is negative, but clinical exam is significant for bilat wheezes. Patient likely not taking deep breaths because of the fracture as well. He has a mild leukocytosis, but he has been on steroids. He is saturating at 99% on room air. He was on day 3/5 of azithromycin and prednisone 20 mg PO. - Will continue azithromycin 500 mg PO - Prednisone 40 mg PO - Acapella - Incentive spirometer - Chest PT - Ipatropium q6 hrs mayra while awake - Albuterol q2hrs prn SOB (3) Carotid artery disease Status: Chronic Plan: Continue plavix & statin (4) HTN (hypertension) Status: Chronic Plan: Continue propranolol (5) Hypothyroidism Status: Acute Plan: continue synthroid (6) Seizure disorder Status: Acute Plan: continue carbamazepine and keppra (7) FEN Status: Acute Plan: Fluids: HLIV Electrolytes: wnl, replete as necessary Nutrition: regular diet as tolerated DVT prophyla: SCD GI prophyla: protonix while on steroids Physician Certification 2 Midnight Certification Type: Admission for Inpatient Services Order for Inpatient Services The services are ordered in accordance with Medicare regulations or non- Medicare payer requirements, as applicable. In the case of services not specified as inpatient-only, they are appropriately provided as inpatient services in accordance with the 2-midnight benchmark. Estimated LOS (days): 3 days is the estimated time the patient will need to remain in the hospital, assuming treatment plan goals are met and no additional complications. Post-Hospital Plan: Home Ama Lema MD R3 Jun 18, 2016 19:32
[2016-06-18] MEDS ORDERED: RESP: ALBUTEROL 2.5 MG/3 ML NEB (PRN) INH (20:00)
[2016-06-18] MEDS ORDERED: IBUPROFEN 600 MG TAB PO PRN (20:15)
[2016-06-18] MEDS ORDERED: MORPHINE SULFATE 4 MG/ML INJ IV PUSH ONE (20:15)
[2016-06-18] MEDS: predniSONE 20 MG TAB PO SCH (20:26)
[2016-06-18] MEDS: AZITHROMYCIN 250 MG TAB PO SCH (20:45)
[2016-06-18] MEDS ORDERED: PROPRANOLOL HCL 10 MG TAB PO SCH (21:00)
[2016-06-18] MEDS: PROPRANOLOL HCL 10 MG TAB PO SCH (21:02)
[2016-06-18] MEDS: ATORVASTATIN 20 MG TAB PO SCH (21:03)
[2016-06-18] MEDS: carBAMazepine 200 MG TAB PO SCH (21:03)
[2016-06-18] MEDS: RESP: ALBUTEROL 2.5 MG/IPRATROPIUM 0.5 MG NEB (SCH) INH (22:00)
[2016-06-18 22:30] VITALS: BP 164/78; PULSE 69; RESP 18; TEMP 97.5; O2SAT 95
[2016-06-19] VITALS (8 sets, daily range): BP systolic 119–183; BP diastolic 64–79; PULSE 62–106; RESP 16–20; TEMP 96.3–98.1; O2SAT 95–97
[2016-06-19] MEDS: LEVOTHYROXINE SODIUM 50 MCG TAB PO SCH (06:14)
[2016-06-19 07:18] LABS: BASOPHIL # 0.1 TH/MM3 (0-0.2); BASOPHIL % 1.2 % (0.0-2.0); EOSINOPHIL # 0.5 TH/MM3 (0-0.4); EOSINOPHIL % 4.8 % (0.0-4.0); HEMATOCRIT 29.2 % (39.0-51.0); LYMPH % 35.1 % (9.0-44.0); LYMPHOCYTE # 3.5 TH/MM3 (1.0-4.8); MEAN CELL VOLUME 91.1 FL (80.0-100.0); MEAN CORPUSCULAR HEMOGLOBIN 32.1 PG (27.0-34.0); MEAN CORPUSCULAR HGB CONC 35.3 % (32.0-36.0); MONO % 8.3 % (0.0-8.0); NEUT % 50.6 % (16.0-70.0); PLATELET COUNT 226 TH/MM3 (150-450); RED BLOOD COUNT 3.21 MIL/MM3 (4.50-5.90); RED CELL DISTRIBUTION WIDTH 14.1 % (11.6-17.2); WHITE BLOOD COUNT 9.9 TH/MM3 (4.0-11.0)
[2016-06-19] MEDS: RESP: ALBUTEROL 2.5 MG/IPRATROPIUM 0.5 MG NEB (SCH) INH ×3 (07:26→19:10)
[2016-06-19 08:06] LABS: HEMO FLAGS AUTO DIFF
[2016-06-19] MEDS ORDERED: PT:MYRBETRIQ 50 MG PO SCH (09:00)
[2016-06-19] MEDS ORDERED: NON-FORMULARY DRUG (Mirabegron (Myrbetriq) 50 MG) PO SCH (09:00)
[2016-06-19] MEDS: DOCUSATE SODIUM 100 MG CAP PO SCH (10:18)
[2016-06-19] MEDS: FERROUS SULFATE 325 MG (65 MG ELEMENTAL IRON) TAB PO SCH (10:18)
[2016-06-19] MEDS: PANTOPRAZOLE SOD 20 MG DELAYED RELEASE TAB PO SCH (10:18)
[2016-06-19] MEDS: carBAMazepine 200 MG TAB PO SCH ×2 (10:18→22:44)
[2016-06-19] MEDS: levETIRAcetam 500 MG TAB PO SCH ×3 (10:18→17:24)
[2016-06-19] MEDS: predniSONE 20 MG TAB PO SCH (10:18)
[2016-06-19] MEDS: PROPRANOLOL HCL 10 MG TAB PO SCH ×2 (10:19→22:43)
[2016-06-19] MEDS: CLOPIDOGREL 75 MG TAB PO SCH (10:19)
[2016-06-19] MEDS: VANCOMYCIN INJ 1,000 MG in SODIUM CHLOR 0.9% 250 ML INJ 250 ML IV SCH (10:20)
[2016-06-19 11:25] LABS: SCAN/DIFF AUTO DIFF CONFIRMED
--- NOTE | 2016-06-19 12:24 | HHI.FPPN ---
Subjective Remarks Overnight, CATERINA. AF. HTN to 165/80. Breathing well on RA. Voiding well, no BM yet. C/o of mild R rib pain secondary to known rib fracture and improving wet cough. Pt more concerned with "loads of trouble" changing rooms, ordering diapers, and that tv remote did not work. ROS otherwise neg- Denies f/c, n/v, WILKS/SOB, CP/palpitations. (Sybil Ramos MD R1) Objective Vitals Vital Signs Date Time Temp Pulse Resp B/P Pulse Ox O2 Delivery O2 Flow Rate FiO2 06/19/16 08:00 97.1 76 20 142/78 97 06/19/16 07:45 96 21 06/19/16 04:02 97.5 62 16 146/66 97 06/19/16 00:07 96 21 06/18/16 22:30 97.5 69 18 164/78 95 06/18/16 19:08 64 16 183/80 99 Room Air 06/18/16 18:28 97 Room Air 06/18/16 18:28 97 Room Air 06/18/16 17:56 98.7 73 18 126/71 97 I/O 06/18/16 06/18/16 06/18/16 06/19/16 06/19/16 06/19/16 07:00 15:00 23:00 07:00 15:00 23:00 Intake Total 0 ml Output Total 250 ml 475 ml Balance -250 ml -475 ml Intake Oral 0 ml Output Urine Total 250 ml 475 ml # Voids 1 (Sybil Ramos MD R1) Result Diagram: 06/19/16 0631 06/18/16 182 Imaging Last Impressions Chest X-Ray 06/18/169 Signed Impressions: Service Date/Time: Saturday, June 18, 2016 18:42 - CONCLUSION: No acute disease. Alonso Sahu MD FACR Objective Remarks CONST: Adult male, NAD DERM: Warm and dry HEENT: PERRL. MMM. CV: RRR. No murmurs RESP: Good air movement. End expiratory wheezing b/l. GI: Soft, NTND +BS MSK: R rib pain with inspiration NEURO: Grossly motor and sensory function intact PSYCH: Appropriate affect (Sybil Ramos MD R1) A/P Assessment and Plan 85y male with CAD, seizure d/o, recently treated 06/15/15 for COPD exacerbation hospitalized 06/18/15 for coagulase-negative Staph bacteremia. Positive blood culture (06/15). Discharge Planning Likely tomorrow 06/21/15, pending negative blood culture allowing for d/c IV vanc (Sybil Ramos MD R1) Attending Attestation A detailed discussion involving Dr Lema, Dr Wilson, Dr Ramos and MS Whitney about patients admission occurred this am, Patient was then seen and examined, Agree with details of this note, Agree with Assessment and Plan, See Orders. ( Darell Olmedo MD) Problem List: (1) Bacteremia due to Gram-negative bacteria Status: Acute Plan: BCx (06/15): Staphylococci coag negx2. Ddx: bacteremia vs contaminant. On admit, AF, lactic acid 1.2. No foreign devices. No immunoC. On low-dose steroids since 06/15 for COPDe - Culture (06/18) pending - Continue vancomycin (06/18- ) - Will d/c vanc and likely discharge 06/21/15 if repeat cultures negative (2) COPD exacerbation Status: Acute Plan: Diagnosed 06/15 in ED. Tx outpt with azithromycin (06/15-) and prednisone 20mg (06/15-) On admit, CXR neg, +b/l wheezing. WBC 13k, downtrending (on steroids). Breathing well on RA. - Continue azithromycin 500 mg PO daily (06/15- ) - Continue Prednisone at increased 40 mg PO daily dose x 5 days total (06/15-06/20 ) - Acapella, Incentive spirometer, Chest PT - Ipatropium q6h LARISA while awake - Albuterol q2hrs PRN SOB (3) Normocytic anemia Status: Chronic Plan: Chronic. H/H stable. Baseline 04/03. MCV 90. -Daily CBC, workup further as outpatient (4) FEN Status: Acute Plan: Fluids: HLIV Electrolytes: wnl, replete as necessary Nutrition: regular diet as tolerated DVT ppx: SCD GI ppx: Protonix (while on steroids) Chronic conditions: CAD/HLD: Continue plavix & statin HTN: Continue propranolol 10mg BID Hypothyroidism: continue synthroid 50mcg daily Seizure d/o: continue carbamazepine and keppra (5) Carotid artery disease Status: Chronic (6) HTN (hypertension) Status: Chronic (7) HLD (hyperlipidemia) Status: Chronic (8) Seizure disorder Status: Chronic (9) Hypothyroidism Status: Chronic (10) Leukocytosis Status: Resolved (Sybil Ramos MD R1) Problem Qualifiers (1) Leukocytosis: Qualified Code: D72.825 - Bandemia Sybil Ramos MD R1 Jun 19, 2016 12:24 Darell Olmedo MD Jun 19, 2016 20:55
[2016-06-19] MEDS: AZITHROMYCIN 250 MG TAB PO SCH (22:44)
[2016-06-19] MEDS: ATORVASTATIN 20 MG TAB PO SCH (22:44)
[2016-06-20] VITALS: BP 150/80; PULSE 60; RESP 18; TEMP 97.1; O2SAT 96
[2016-06-20 04:00] VITALS: BP 182/82; PULSE 68; RESP 20; TEMP 97.3; O2SAT 96
[2016-06-20] MEDS: LEVOTHYROXINE SODIUM 50 MCG TAB PO SCH (06:44)
[2016-06-20] MEDS ORDERED: hydrALAZINE HCL 10 MG TAB PO PRN (06:45)
[2016-06-20 07:05] LABS: HEMATOCRIT 30.6 % (39.0-51.0); MEAN CELL VOLUME 91.4 FL (80.0-100.0); MEAN CORPUSCULAR HEMOGLOBIN 31.4 PG (27.0-34.0); MEAN CORPUSCULAR HGB CONC 34.3 % (32.0-36.0); PLATELET COUNT 259 TH/MM3 (150-450); RED BLOOD COUNT 3.35 MIL/MM3 (4.50-5.90); REVIEW FLAG FINAL; WHITE BLOOD COUNT 13.1 TH/MM3 (4.0-11.0)
[2016-06-20 07:30] LABS: BICARBONATE 24.9 MEQ/L (21.0-32.0); POTASSIUM 3.8 MEQ/L (3.5-5.1)
[2016-06-20] MEDS ORDERED: LISI-519 PO (07:45)
--- NOTE | 2016-06-20 07:46 | HHI.DCPOC ---
Discharge Care Plan Diagnosis: (1) Bacteremia Goals to Promote Your Health * To prevent worsening of your condition and complications * To maintain your health at the optimal level Directions to Meet Your Goals Take your medications as prescribed Follow your dietary instruction Follow activity as directed Keep your appointments as scheduled Take your immunizations and boosters as scheduled If your symptoms worsen call your PCP, if no PCP go to Urgent Care Center or Emergency Room Smoking is Dangerous to Your Health. Avoid second hand smoke Call the 24-hour hour crisis hotline for domestic abuse at Ines Wilson MD R2 Jun 20, 2016 07:46
--- NOTE | 2016-06-20 07:53 | HHI.FPPN ---
Subjective Remarks No acute issues overnight. Patient remains afebrile. Blood pressure mildly elevated ranging [id number]. Overall, patient is feeling well this morning. He denies any chest pain, shortness of breath, fever, chills, nausea or vomiting. He does have some soreness at the location of his rib fracture. He is tolerating by mouth and having regular bowel movements. Objective Vitals Vital Signs Date Time Temp Pulse Resp B/P Pulse Ox O2 Delivery O2 Flow Rate FiO2 06/20/16 04:00 97.3 68 20 182/82 96 06/20/16 00:00 97.1 60 18 150/80 96 06/19/16 20:00 97.8 70 20 142/64 95 06/19/16 19:11 96 06/19/16 16:00 98.1 71 20 169/72 06/19/16 12:00 96.3 74 20 183/79 97 06/19/16 08:00 97.1 76 20 142/78 97 I/O 06/19/16 06/19/16 06/19/16 06/20/16 06/20/16 06/20/16 07:00 15:00 23:00 07:00 15:00 23:00 Intake Total 515 ml 480 ml 120 ml Output Total 475 ml 1050 ml 100 ml 400 ml Balance -475 ml -535 ml 380 ml -280 ml Intake Oral 240 ml 480 ml 120 ml IV Total 275 ml Output Urine Total 475 ml 1050 ml 100 ml 400 ml # Voids 1 # Bowel Movements 0 0 Result Diagram: 06/20/16 0634 06/20/16 0534 Imaging Last Impressions Chest X-Ray 06/18/16 180 Signed Impressions: Service Date/Time: Saturday, June 18, 2016 18:42 - CONCLUSION: No acute disease. Alonso Sahu MD FACR Objective Remarks CONST: Adult male lying in bed comfortably, in NAD DERM: Warm and dry HEENT: PERRL. MMM. CV: RRR. No murmurs RESP: Good air movement. Clear to auscultation bilaterally. No wheezing. GI: Soft, NTND +BS MSK: R rib pain with inspiration NEURO: Grossly motor and sensory function intact PSYCH: Appropriate affect A/P Assessment and Plan 85y male with CAD, seizure d/o, recently treated 06/15/15 for COPD exacerbation hospitalized 06/18/15 for coagulase-negative Staph bacteremia. Positive blood culture (06/15). Discharge Planning Anticipate discharge today pending negative blood culture. Problem List: (1) Bacteremia Status: Acute Plan: BCx (06/15): Staphylococci coag negx2. True bacteremia vs contaminant. Afebrile Leukocytosis 13.1 on steroids for COPD exac Lactic acid 1.2. No foreign devices. - 06/18 BCx NG1D - Continue vancomycin (06/18- ) - Will d/c vanc and likely discharge today if BCx negative x 48 hours (2) COPD exacerbation Status: Resolved Plan: Resolved - DC azithromycin 500 mg PO daily (06/15- 06/20) and Prednisone 40 mg PO daily (-06/20) - Acapella, Incentive spirometer, Chest PT - Ipatropium q6h LARISA while awake - Albuterol q2hrs PRN SOB (3) FEN Status: Acute Plan: Fluids: HLIV Electrolytes: wnl, replete as necessary Nutrition: regular diet as tolerated DVT ppx: SCD GI ppx: Protonix (while on steroids) Chronic conditions: CAD/HLD: Continue plavix & statin HTN: Continue propranolol 10mg BID Hypothyroidism: continue synthroid 50mcg daily Seizure d/o: continue carbamazepine and keppra (4) Carotid artery disease Status: Chronic (5) HTN (hypertension) Status: Chronic (6) HLD (hyperlipidemia) Status: Chronic (7) Seizure disorder Status: Chronic (8) Hypothyroidism Status: Chronic (9) Leukocytosis Status: Resolved Problem Qualifiers (1) Leukocytosis: Qualified Code: D72.825 - Bandemia Ines Wilson MD R2 Jun 20, 2016 07:53
[2016-06-20 08:00] VITALS: BP 189/80; PULSE 72; RESP 18; TEMP 98.2; O2SAT 94
[2016-06-20] MEDS: predniSONE 20 MG TAB PO SCH (08:38)
[2016-06-20] MEDS: carBAMazepine 200 MG TAB PO SCH (08:38)
[2016-06-20] MEDS: PANTOPRAZOLE SOD 20 MG DELAYED RELEASE TAB PO SCH (08:38)
[2016-06-20] MEDS: levETIRAcetam 500 MG TAB PO SCH ×2 (08:38→13:12)
[2016-06-20] MEDS: FERROUS SULFATE 325 MG (65 MG ELEMENTAL IRON) TAB PO SCH (08:38)
[2016-06-20] MEDS: CLOPIDOGREL 75 MG TAB PO SCH (08:38)
[2016-06-20] MEDS: DOCUSATE SODIUM 100 MG CAP PO SCH (08:38)
[2016-06-20] MEDS: PROPRANOLOL HCL 10 MG TAB PO SCH (08:38)
[2016-06-20] MEDS: VANCOMYCIN INJ 1,000 MG in SODIUM CHLOR 0.9% 250 ML INJ 250 ML IV SCH (08:39)
[2016-06-20] MEDS ORDERED: LISINOPRIL 5 MG TAB PO SCH (09:00)
[2016-06-20] MEDS: RESP: ALBUTEROL 2.5 MG/IPRATROPIUM 0.5 MG NEB (SCH) INH ×2 (09:09→13:16)
[2016-06-20 09:16] VITALS: O2SAT 96
[2016-06-20 12:00] VITALS: BP 158/77; PULSE 74; RESP 18; TEMP 99.1; O2SAT 96
[2016-06-20 16:00] VITALS: BP 168/88; PULSE 78; RESP 18; TEMP 98.6; O2SAT 98
== END 2016-06-20 17:17 | DRG 872 ==
LOC: NEPC 17:04 → NEDA 19:29 → HOCB 22:03
PROVIDERS: ADMIT Family Medicine; ATTEND Family Medicine
DX: R78.81 Bacteremia (principal); J44.1 Chronic obstructive pulmonary disease with (acute) exacerbation; B95.7 Other staphylococcus as the cause of diseases classified elsewhere; S22.31XA Fracture of one rib, right side, initial encounter for closed fracture; G40.909 Epilepsy, unspecified, not intractable, without status epilepticus; I10 Essential (primary) hypertension; E03.9 Hypothyroidism, unspecified; K21.9 Gastro-esophageal reflux disease without esophagitis; I25.10 Atherosclerotic heart disease of native coronary artery without angina pectoris; M19.90 Unspecified osteoarthritis, unspecified site; J45.909 Unspecified asthma, uncomplicated; E78.5 Hyperlipidemia, unspecified; D64.9 Anemia, unspecified; R32 Unspecified urinary incontinence; D72.825 Bandemia; H91.90 Unspecified hearing loss, unspecified ear; Z86.73 Personal history of transient ischemic attack (TIA), and cerebral infarction without residual deficits; Z86.14 Personal history of Methicillin resistant Staphylococcus aureus infection; Z85.46 Personal history of malignant neoplasm of prostate; W18.39XA Other fall on same level, initial encounter; Y92.129 Unspecified place in nursing home as the place of occurrence of the external cause; R94.31 Abnormal electrocardiogram [ECG] [EKG]; E78.00 Pure hypercholesterolemia, unspecified; Z87.09 Personal history of other diseases of the respiratory system; Z87.19 Personal history of other diseases of the digestive system; Z87.448 Personal history of other diseases of urinary system; Z86.69 Personal history of other diseases of the nervous system and sense organs; Z87.39 Personal history of other diseases of the musculoskeletal system and connective tissue
CPT/HCPCS: 71010; 80048; 80053; 81001; 82550; 83605; 83735; 83880; 84443; 84484; 85007; 85025; 85027; 85610; 85730; 86403; 87040; 87077; 87186; 87205; 87804; 93005; 94150; 94640; 94664; 94667; 94668; 96374; J2270; J3370; J7050; J7512; J7613

== ENCOUNTER 2016-08-17 17:56 | Inpatient (IN) | payer MEDICARE ==
[~2016-08-17] VITALS: Ht 170.2 cm; Wt 64.4 kg
[~2016-08-17 17:56] MED LIST changes: +LISI-519 PO; -PRED20 PO; -ZITHTAB PO
[2016-08-17 18:10] VITALS: RESP 20
[2016-08-17 18:32] VITALS: BP 212/91; PULSE 105; TEMP 98.6; O2SAT 100
--- NOTE | 2016-08-17 18:46 | RADRPT ---
EXAM DATE/TIME: 08/17/2016 18:32 [facility] COMPARISON: CHEST SINGLE AP, June 18, 2016, 18:42. INDICATIONS : Palpitations, syncope. MEDICAL HISTORY : None. SURGICAL HISTORY : None. ENCOUNTER: Initial ACUITY: 1 day PAIN SCORE: 0/10 LOCATION: Bilateral chest FINDINGS: A single view of the chest demonstrates the lungs to be symmetrically aerated without evidence of mas s, infiltrate or effusion. The cardiomediastinal contours are unremarkable. Osseous structures are intact. CONCLUSION: No acute disease. Shane Pro MD on August 17, 2016 at 18:44 Board Certified Radiologist. This report was verified electronically.
[2016-08-17] MEDS ORDERED: SODIUM CHLOR 0.9% 1000 ML INJ 1,000 ML IV ONE (18:48)
--- NOTE | 2016-08-17 18:50 | PD ---
HPI Chief Complaint: Syncope/Near-Syncope Time Seen by Provider: 18:50 Travel History International Travel<30 days: No Contact w/Intl Traveler<30days: No Traveled to known affect area: No History of Present Illness HPI 85-year-old male with history of hypertension, COPD, seizure disorder, hypothyroidism, hyperlipidemia is brought to the emergency department by EMS from assisted living facility for evaluation of syncopal episode. Per EMS the patient experienced a syncopal episode while in his wheelchair and when they arrived on scene he was bradycardic between 40 and 50 bpm. The patient states that he was sitting down at the table about to eat dinner with his when he felt lightheaded and weak. States that he was pushing himself away from the table when his lightheadedness worsened and he fainted. He did not fall out of the chair onto the ground. He states that he passed out for only a few seconds. States that a few minutes after he passed out he became very nauseous and vomited a few times, nonbloody nonbilious emesis. He states he has not been feeling well for the past week, states he has been feeling fatigued and a little anxious. He states that now he is feeling a little weak but otherwise feeling better than before. He denies any chest pain, shortness of breath, vision changes, headache, numbness or tingling, weakness, abdominal pain, diarrhea. No other complaints. PCP Nicol Ambrocio. [facility] Past Medical History Arthritis: Yes Asthma: Yes Autoimmune Disease: No Blood Disorders: No Anxiety: No Depression: No Heart Rhythm Problems: No Cancer: Yes (prostate cancer) Cardiac Catheterization: Yes (UNSURE) Cardiovascular Problems: No High Cholesterol: Yes Chemotherapy: No Chest Pain: Yes Congestive Heart Failure: No COPD: Yes Cerebrovascular Accident: Yes (TIA) Diabetes: No Diminished Hearing: Yes Endocrine: No Gastrointestinal Disorders: Yes (reflux) GERD: Yes Glaucoma: No Genitourinary: Yes (urinary incontinence) Headaches: Yes Hepatitis: No Hiatal Hernia: No Hypertension: Yes Immune Disorder: No Implanted Vascular Access Dvce: Yes Kidney Stones: No Musculoskeletal: Yes (OK. HIP FX., PELVIC FX.) Neurologic: Yes (hx of seizures, lying flat will make him dizzy hx of vertigo ) Psychiatric: No Reproductive: No Respiratory: Yes (COPD ) Immunizations Current: Yes Migraines: No Myocardial Infarction: No Radiation Therapy: No Renal Failure: No Seizures: Yes Sickle Cell Disease: No Sleep Apnea: No Thyroid Disease: No Ulcer: No Past Surgical History Abdominal Surgery: Yes (peg tube placement november 2014, REMOVED) AICD: No Appendectomy: Yes ( CHILD) Arteriovenous Shunt: No Body Medical Devices: HARDWARE OK. 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) Endocrine Surgery: No Eye Surgery: Yes (ok cataract) Genitourinary Surgery: Yes (prostate cancer removal) Gynecologic Surgery: No Insulin Pump: No Joint Replacement: No Neurologic Surgery: No Oral Surgery: No Pacemaker: No Thoracic Surgery: No Tonsillectomy: Yes Other Surgery: Yes (PROSTATECTOMY 2000) Social History Alcohol Use: No Tobacco Use: No Substance Use: No Allergies-Medications (Allergen,Severity, Reaction): Coded Allergies: Augmentin (Verified Allergy, Severe, Shortness of Breath, 06/18/16) Imipramine (Verified Allergy, Severe, SEIZURE, 06/18/16) Primidone (Verified Allergy, Severe, SEIZURE, 06/18/16) Sulfa (Verified Allergy, Unknown, Rash, 06/18/16) *MDRO Multi-Drug Resistant Organism (Unverified Adverse Reaction, Unknown , 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 MRSA PCR Screen negative 08/25/14 and 08/27/14. Reported Meds & Prescriptions Reported Meds & Active Scripts Active Lisinopril 5 Mg Tab 5 Mg PO DAILY Acetaminophen 325 Mg Tab 325 Mg PO Q4-6H PRN Ventolin Hfa 18 GM Inh (Albuterol Sulfate) 90 Mcg/Act Aer 2 Puff INH Q4H PRN Reported Vitamin B-6 (Pyridoxine HCl) 50 Mg Tab 50 Mg PO DAILY Ventolin Hfa 18 GM Inh (Albuterol Sulfate) 90 Mcg/Act Aer 2 Puff INH Q6H PRN Propranolol (Propranolol HCl) 10 Mg Tab 10 Mg PO Q12HR Preservision-Lutein (Multiple Vitamins W/ Minerals) 1 Cap 1 Cap PO DAILY Bio-Statin Powder (Nystatin) 1 Pow Pow 100,000 Units TOPICAL TID Myrbetriq (Mirabegron) 50 Mg Tab 50 Mg PO DAILY Montelukast (Montelukast Sodium) 10 Mg Tab 10 Mg PO HS Mapap (Acetaminophen) 500 Mg Cap 500 Mg PO Q4-6H PRN Levothyroxine (Levothyroxine Sodium) 50 Mcg Tab 50 Mcg PO DAILY Levetiracetam 500 Mg Tab 500 Mg PO TID Docusate Sodium 100 Mg Cap 100 Mg PO DAILY Clopidogrel (Clopidogrel Bisulfate) 75 Mg Tab 75 Mg PO DAILY Carbamazepine 200 Mg Tab 200 Mg PO BID Calcium 600 + D (Calcium Carbonate-Vitamin D) 600-400 Mg-Unit Tab 1 Tab PO DAILY Breo Ellipta Inh (Fluticasone/Vilanterol) 100-25 Mcg/Act Inh 1 Puff INH DAILY Use daily at the same time. Boudreauxs Butt Paste (Zinc Oxide (Topical)) 16 % Oin Atorvastatin (Atorvastatin Calcium) 20 Mg Tab 20 Mg PO HS Ammonium Lactate (Lactic Acid (Ammonium Lactate)) 12% Lotn 1 Applic TOPICAL BID Alendronate (Alendronate Sodium) 70 Mg Tab 70 Mg PO Q7D Ferrous Sulfate 325 Mg Tab 325 Mg PO DAILY Review of Systems Except as stated in HPI: all other systems reviewed are Neg Physical Exam Narrative GENERAL: Well-nourished and well-developed pleasant elderly male patient in no acute distress who is nontoxic appearing. SKIN: Warm and dry. HEAD: Normocephalic and atraumatic. EYES: No injection, drainage, or hyphema noted. PERRLA. EOMI. ENT: No nasal drainage noted. Oropharynx is clear. NECK: Supple and the trachea is midline. CARDIOVASCULAR: Regular rate and rhythm. RESPIRATORY: Breath sounds are equal bilaterally with no accessory muscle use, wheezing, rhonchi, or crackles. GASTROINTESTINAL: Abdomen is soft, non-tender, and nondistended. MUSCULOSKELETAL: No obvious deformities, swelling, cyanosis, or ecchymosis is present throughout the upper and lower extremities. Patient has full range of motion without any signs of neurovascular compromise. Strength 5/5 upper and lower extremities equal bilaterally. NEUROLOGICAL: Awake, alert, and oriented. Normal speech and gait. Cranial nerves are grossly intact. Data Data Last Documented VS Vital Signs Date Time Temp Pulse Resp B/P Pulse Ox O2 Delivery O2 Flow Rate FiO2 08/17/16 19:19 64 18 189/79 99 Room Air 08/17/16 18:32 98.6 2 Orders Electrocardiogram (08/17/16 ) Basic Metabolic Panel (Bmp) (08/17/16 18:04) Complete Blood Count With Diff (08/17/16 18:04) Comprehensive Metabolic Panel (08/17/16 18:04) B-Type Natriuretic Peptide (08/17/16 18:04) Troponin I (08/17/16 18:04) Act Partial Throm Time (Ptt) (08/17/16 18:04) Prothrombin Time / Inr (Pt) (08/17/16 18:04) Chest, Single Ap (08/17/16 18:04) Ecg Monitoring (08/17/16 18:04) Iv Access Insert/Monitor (08/17/16 18:04) Oximetry (08/17/16 18:04) Urinalysis - C+S If Indicated (08/17/16 18:48) Ct Brain W/O Iv Contrast(Rout) (08/17/16 18:48) Sodium Chloride 0.9% Flush (Ns Flush) (08/17/16 19:00) Sodium Chlor 0.9% 1000 Ml Inj (Ns 1000 M (08/17/16 18:48) Orthostatic Vital Signs (08/17/16 20:18) Labs Laboratory Tests Test 08/17/16 08/17/16 18:45 19:46 White Blood Count 11.5 TH/MM3 Red Blood Count 3.71 MIL/MM3 Hemoglobin 12.1 GM/DL Hematocrit 33.9 % Mean Corpuscular Volume 91.3 FL Mean Corpuscular Hemoglobin 32.7 PG Mean Corpuscular Hemoglobin 35.8 % Concent Red Cell Distribution Width 14.2 % Platelet Count 229 TH/MM3 Mean Platelet Volume 7.3 FL Neutrophils (%) (Auto) 71.9 % Lymphocytes (%) (Auto) 17.3 % Monocytes (%) (Auto) 8.6 % Eosinophils (%) (Auto) 1.7 % Basophils (%) (Auto) 0.5 % Neutrophils # (Auto) 8.3 TH/MM3 Lymphocytes # (Auto) 2.0 TH/MM3 Monocytes # (Auto) 1.0 TH/MM3 Eosinophils # (Auto) 0.2 TH/MM3 Basophils # (Auto) 0.1 TH/MM3 CBC Comment DIFF FINAL Differential Comment Prothrombin Time 10.8 SEC Prothromb Time International 1.0 RATIO Ratio Activated Partial 25.8 SEC Thromboplast Time Sodium Level 129 MEQ/L Potassium Level 4.8 MEQ/L Chloride Level 94 MEQ/L Carbon Dioxide Level 26.2 MEQ/L Anion Gap 9 MEQ/L Blood Urea Nitrogen 19 MG/DL Creatinine 0.88 MG/DL Estimat Glomerular Filtration 82 ML/MIN Rate Random Glucose 118 MG/DL Calcium Level 8.3 MG/DL Total Bilirubin 0.4 MG/DL Aspartate Amino Transf 22 U/L (AST/SGOT) Alanine Aminotransferase 31 U/L (ALT/SGPT) Alkaline Phosphatase 92 U/L Troponin I LESS THAN 0.02 NG/ML B-Type Natriuretic Peptide 133 PG/ML Total Protein 7.6 GM/DL Albumin 3.9 GM/DL Urine Color YELLOW Urine Turbidity CLEAR Urine pH 5.5 Urine Specific [place] 1.016 Urine Protein TRACE mg/dL Urine Glucose (UA) NEG mg/dL Urine Ketones NEG mg/dL Urine Occult Blood NEG Urine Nitrite NEG Urine Bilirubin NEG Urine Urobilinogen LESS THAN 2.0 MG/DL Urine Leukocyte Esterase NEG Urine RBC LESS THAN 1 /hpf Urine WBC LESS THAN 1 /hpf Urine Mucus FEW /lpf Microscopic Urinalysis Comment CULT NOT INDICATED MDM Medical Decision Making Medical Screen Exam Complete: Yes Emergency Medical Condition: Yes Differential Diagnosis Dehydration versus electrolyte abnormality versus arrhythmia versus intracranial hemorrhage Narrative Course 85-year-old male presents to the emergency department by EMS from his a [facility] for evaluation of syncopal episode followed by episodes of vomiting. Patient is afebrile, vital signs are stable. Physical examination is essentially unremarkable. IV access was obtained, labs were drawn and sent. Patient is administered a liter of fluid. EKG shows sinus rhythm with right bundle branch block, no acute ST elevations or depressions. No change from prior EKG. CBC shows slightly elevated white blood for count 11.5, mild anemia with a hemoglobin of 12.1, hematocrit 33.9. CMP shows mild dehydration with a sodium of 129, BUN 19. Troponin is less than 0.02. Coags are unremarkable. Head CT is negative for any acute abnormalities. Chest x-ray is negative for any acute abnormalities. Urinalysis is unremarkable. BNP is slightly elevated at 133. Remained stable and without complaint while here in the emergency department. Due the patient's age and risk factors we'll keep him under observation for further workup. I discussed the case with my attending physician Dr. Miller who is aware of the patients history, physical examination findings, and treatment plan. Physician Communication Physician Communication I spoke with Yung CHILEL for [facility] who agrees to admit the patient under Dr. Brewer's service. Diagnosis Primary Impression: Syncope Qualified Code: R55 - Syncope, unspecified syncope type Additional Impression: Vomiting Qualified Code: R11.2 - Non-intractable vomiting with nausea, unspecified vomiting type Admitting Information Admitting Physician Requests: Observation Gia Meek Aug 17, 2016 18:50
[2016-08-17 18:57] LABS: AUTOMATED NEUTROPHIL # 8.3 TH/MM3 (1.8-7.7); BASOPHIL # 0.1 TH/MM3 (0-0.2); BASOPHIL % 0.5 % (0.0-2.0); EOSINOPHIL # 0.2 TH/MM3 (0-0.4); EOSINOPHIL % 1.7 % (0.0-4.0); HEMATOCRIT 33.9 % (39.0-51.0); HEMO FLAGS DIFF FINAL; LYMPH % 17.3 % (9.0-44.0); MEAN CELL VOLUME 91.3 FL (80.0-100.0); MEAN CORPUSCULAR HEMOGLOBIN 32.7 PG (27.0-34.0); MEAN CORPUSCULAR HGB CONC 35.8 % (32.0-36.0); MONO % 8.6 % (0.0-8.0); NEUT % 71.9 % (16.0-70.0); PLATELET COUNT 229 TH/MM3 (150-450); RED BLOOD COUNT 3.71 MIL/MM3 (4.50-5.90); RED CELL DISTRIBUTION WIDTH 14.2 % (11.6-17.2); WHITE BLOOD COUNT 11.5 TH/MM3 (4.0-11.0)
[2016-08-17] MEDS ORDERED: SODIUM CHLORIDE 0.9% FLUSH 5 ML FLUSH IVF PRN (19:00)
[2016-08-17 19:07] LABS: ANION GAP 9 MEQ/L (5-15); AST (GOT) 22 U/L (15-37); BICARBONATE 26.2 MEQ/L (21.0-32.0); BLOOD UREA NITROGEN 19 MG/DL (7-18); CHLORIDE 94 MEQ/L (98-107); GLOMERULAR FILTRATION RATE 82 ML/MIN (>89); POTASSIUM 4.8 MEQ/L (3.5-5.1); SODIUM (NA) 129 MEQ/L (136-145)
[2016-08-17 19:11] LABS: ALKALINE PHOSPHATASE 92 U/L (45-117); ALT (GPT) 31 U/L (12-78); TOTAL BILIRUBIN ADULT 0.4 MG/DL (0.2-1.0)
[2016-08-17 19:12] LABS: APTT (PATIENT) 25.8 SEC (24.3-30.1); PROTHROMBIN TIME - PATIENT 10.8 SEC (9.8-11.6)
--- NOTE | 2016-08-17 19:16 | RADRPT ---
EXAM DATE/TIME: 08/17/2016 19:03 [facility] COMPARISON: CT BRAIN W/O CONTRAST, November 11, 2014, 11:20. INDICATIONS : Syncopal episode tonight with vomiting. RADIATION DOSE: 37.89 CTDIvol (mGy) MEDICAL HISTORY : Cerebrovascular disease. Seizures. Hypertension.Prostate cancer SURGICAL HISTORY : Appendectomy. Prostatectomy.Peg tupe ENCOUNTER: Initial ACUITY: 1 day PAIN SCALE: 0/10 LOCATION: cranial TECHNIQUE: Multiple contiguous axial images were obtained of the head. Using automated exposure control and adj ustment of the mA and/or kV according to patient size, radiation dose was kept as low as reasonably a chievable to obtain optimal diagnostic quality images. 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 No signs of ac nixon infarct, hemorrhage or mass. Osseous structures are intact. CONCLUSION: No significant change has occurred. Shane Pro MD on August 17, 2016 at 19:14 Board Certified Radiologist. This report was verified electronically.
[2016-08-17 19:19] VITALS: BP 189/79; PULSE 64; RESP 18; O2SAT 99
[2016-08-17 20:12] LABS: BLOOD, URINE NEG (NEG); GLUCOSE,URINE NEG (NEG); KETONE, URINE NEG (NEG); MUCUS URINE FEW /lpf (OCC); NITRITE,URINE NEG (NEG); PH, URINE 5.5 (5.0-8.5); URINE COLOR YELLOW (YELLW/STRAW)
[2016-08-17 20:21] LABS: COMMENT (UR) CULT NOT INDICATED; CULTURE IF INDICATED CULT NOT INDICATED
[2016-08-17] MEDS ORDERED: ONDANSETRON HCL 4 MG/2 ML VIAL IVP PRN (23:15)
[2016-08-17] MEDS ORDERED: SENNOSIDES 8.6 MG TAB PO PRN (23:15)
[2016-08-17] MEDS ORDERED: NALOXONE HCL 0.4 MG/ML AMP IV PRN (23:15)
[2016-08-17] MEDS ORDERED: ACETAMINOPHEN 325 MG TAB PO PRN (23:15)
[2016-08-17] MEDS ORDERED: SODIUM CHLORIDE 0.9% FLUSH 5 ML FLUSH FLUSH PRN (23:15)
[2016-08-17 23:43] VITALS: BP_SYST 166; BP_SYST 180; BP_SYST 193; BP_DIAS 80; BP_DIAS 86; BP_DIAS 91; RESP 18
[2016-08-18] VITALS (10 sets, daily range): BP systolic 118–199; BP diastolic 60–84; PULSE 68–81; RESP 18; TEMP 97.5–98; O2SAT 95–100
[2016-08-18] MEDS: HEPARIN SODIUM - SQ 10,000 UNITS/ML VIAL SQ SCH ×3 (00:42→22:34)
--- NOTE | 2016-08-18 01:00 | RADRPT ---
EXAM DATE/TIME: 08/17/2016 23:48 [facility] COMPARISON: US CAROTID ARTERIES, December 28, 2009, 15:50. INDICATIONS : Syncope. MEDICAL HISTORY : Hypercholesterolemia. Carcinoma, prostate. Arthritis. Seizures. TIA. HTN. COPD. Asthma. GERD. ESBL ur ine. UTI. Bilateral hip fractures. Pelvic fracture. SURGICAL HISTORY : Tonsillectomy. Appendectomy. Bilateral cataract surgery. Left ear surgery. Cardiac cath. Peg tube p laced/removed. TURP. Bilateral hip repair. ENCOUNTER: Initial ACUITY: 1 day PAIN SCORE: 0/10 LOCATION: Bilateral neck PEAK SYSTOLIC VELOCITIES (cm/sec): ICA/CCA RATIO: Right: 2.1 Left: 1.1 ICA: Right: 105 Left: 87 CCA: Right: 49 Left: 79 ECA: Right: 147 Left: 80 VERTEBRAL: Right: 26 antegrade Left: 65 antegrade Elevated flow velocities and ICA/CCA ratios have been found to correlate with increased degrees of vessel stenosis, calculated as percentage of diameter relative to a normal segment of distal ICA/CCA FINDINGS: RIGHT CAROTID: The distal right internal carotid artery is not well-visualized. Moderately elevated ICA to CCA peak systolic velocity ratio on the right. Moderate severity noncalcified plaque at the right carotid bulb . Spectral broadening noted in the mid right ICA waveform. LEFT CAROTID: No significant stenosis is visualized. The waveforms are within normal limits. VERTEBRAL ARTERIES: Antegrade flow is seen in both vertebral arteries. MISCELLANEOUS: None. CONCLUSION: Elevated ICA/CCA ratio on the right and moderate severity noncalcified plaque indicat ing possible moderate to high-grade internal carotid artery stenosis. Recommend CTA carotid for furth er evaluation. Bernard Dorado MD on August 18, 2016 at 0:54 Board Certified Radiologist. This report was verified electronically.
[2016-08-18 05:09] LABS: AUTOMATED NEUTROPHIL # 10.1 TH/MM3 (1.8-7.7); BASOPHIL # 0.1 TH/MM3 (0-0.2); BASOPHIL % 0.6 % (0.0-2.0); EOSINOPHIL # 0.2 TH/MM3 (0-0.4); EOSINOPHIL % 1.1 % (0.0-4.0); HEMATOCRIT 37.3 % (39.0-51.0); HEMO FLAGS DIFF FINAL; LYMPH % 18.7 % (9.0-44.0); LYMPHOCYTE # 2.8 TH/MM3 (1.0-4.8); MEAN CELL VOLUME 92.2 FL (80.0-100.0); MEAN CORPUSCULAR HEMOGLOBIN 32.5 PG (27.0-34.0); MEAN CORPUSCULAR HGB CONC 35.2 % (32.0-36.0); MONO % 11.3 % (0.0-8.0); NEUT % 68.3 % (16.0-70.0); PLATELET COUNT 266 TH/MM3 (150-450); RED BLOOD COUNT 4.05 MIL/MM3 (4.50-5.90); RED CELL DISTRIBUTION WIDTH 14.1 % (11.6-17.2); WHITE BLOOD COUNT 14.8 TH/MM3 (4.0-11.0)
[2016-08-18 05:32] LABS: ANION GAP 12 MEQ/L (5-15); BICARBONATE 22.5 MEQ/L (21.0-32.0); BLOOD UREA NITROGEN 13 MG/DL (7-18); CHLORIDE 100 MEQ/L (98-107); GLOMERULAR FILTRATION RATE 89 ML/MIN (>89); POTASSIUM 4.1 MEQ/L (3.5-5.1); SODIUM (NA) 134 MEQ/L (136-145)
[2016-08-18] MEDS: SODIUM CHLORIDE 0.9% FLUSH 5 ML FLUSH FLUSH SCH ×2 (09:08→21:00)
--- NOTE | 2016-08-18 12:03 | MH ---
cc: BRAYDEN BREWER MD DATE OF ADMISSION: 08/17/2016 DATE OF 1930 CHIEF COMPLAINT Syncopal episode/syncope. TRAVEL IN THE LAST 30 DAYS None. HISTORY OF PRESENT ILLNESS This is a pleasant 85-year-old white male who experienced a syncopal episode while sitting in his wheelchair. He currently is at an assisted living facility and has been in his usual state of health until this acute event. The patient was sitting at the table to eat dinner with his , according to the record, when he felt lightheaded and weak. He remembers pushing himself away from the table due to his symptoms and it was noted that he did faint. There was no trauma involved. He did not fall out of the chair. According to the record, he was only out for a few seconds and then came back to. He did become very nauseated and vomited but that has passed since the syncopal episode. The patient does note some fatigue and generalized weakness over the past few weeks but other than that, no acute chest pain, shortness of breath. No headaches. No nausea, vomiting, diarrhea or constipation before this event. No acute weight gain or weight loss. MEDICAL HISTORY Currently the patient is alert. He is able to answer simple questions. He is a fair historian. MEDICAL HISTORY According to the record and patient - 1. Asthma. 2. Arthritis. 3. History of prostate cancer. 4. Cardiovascular disease. 5. Hyperlipidemia. 6. Chest pain. 7. COPD. 8. Previous TIAs. 9. Hard of hearing. 10. Reflux. 11. Urinary incontinence. 12. Hypertension. 13. Pelvic fractures. 14. Hip fractures. 15. History of seizures. 16. History of vertigo. PAST SURGICAL HISTORY 1. Previous PEG tube placement which has now been removed. 2. Appendectomy as a child. 3. Bilateral hip hardware. 4. Left ear cancer surgery. 5. Bilateral cataracts. 6. Prostatectomy. 7. Tonsillectomy. ALLERGIES MDRO MULTI-RESISTANT DRUG ORGANISMS. ESBL IN HIS URINE. MRSA SCREEN WAS NEGATIVE TWICE IN 2014. AUGMENTIN. PRIMIDONE. SULFA. IMIPRAMINE. SOCIAL HISTORY Currently the patient is living in the assisted living. He denies any tobacco, alcohol or illicit drug use. He is and his is still with him. REPORTED MEDICATIONS 1. Vitamin B6. 2. Ventolin. 3. Propranolol. 4. Multivitamins. 5. Bio-Statin powder. 6. Myrbetriq. 7. Montelukast. 8. Acetaminophen. 9. Levothyroxine. 10. Levetiracetam. 11. Surfak. 12. Plavix. 13. Calcium. 14. Breo Ellipta. 15. Carbamazepine. 16. Zinc oxide. 17. Atorvastatin. 18. Ammonium lactate. 19. Ferrous sulfate. 20. Alendronate. REVIEW OF SYSTEMS Some limitations but the patient can answer simple questions without any confusion. Currently denies any syncope. No nausea, no vomiting, although these were some of his symptoms when he first arrived. Incontinence. Other systems negative or unremarkable. DIAGNOSTIC DATA WBC count originally 11.5 on admission, now 14.8; RBC 4.05, hemoglobin 13.1, platelet count 266, monocyte 11.3, neutrophils auto 71.9 on admission . PT/INR 1. Chemistry - Sodium 134, potassium 4.1, chloride 100, CO2 22.5, amnion gap 12, BUN 13, creatinine 0.82, random glucose was 110. Troponin x 3 less than 0.02. BMP is 133, albumin 3.9, total protein 4.6. Urine is yellow, clear, pH is 5.5, specific gravity 1.016, trace of protein, negative for glucose, ketones, occult blood, nitrites bilirubin and leukocyte esterase. A few urine mucus. Culture is not indicated. IMAGING STUDIES His chest x-ray with no acute disease. CT of the head shows no significant changes to occur. Carotid ultrasound - Elevated ICA/CCA ratio on the right, moderate severity. Noncalcified plaque indicating possible moderate to high-grade internal carotid artery stenosis. Recommend TCA of the carotid for further evaluation. PLAN 1. Syncopal episode. 2. Carotid artery disease. 3. Leukocytosis. 4. History of seizure disorders. 5. COPD. 6. Dementia. 7. Debility. 8. Hypertension. 9. Peripheral artery disease. PLAN 1. Admit inpatient. Monitor his vital signs q. 4 and p.r.n. Reconcile his medications. Give him gentle hydration. 2. Ultrasound of carotids showed a positive right possible stenosis. We will do CTA of the neck and carotids. 3. DVT prophylaxis with heparin. 4. Clonidine q. 6 p.r.n. for any increased blood pressure with a systolic greater than 180. 5. Orthostatic vital signs if the patient needs to be up. 6. Labs as monitored for any abnormal findings. 7. ECG monitoring. 8. IV access. 9. O2 as warranted. This plan of care has been discussed with Dr. Brewer. We will follow up on the CTA of his carotids for any further consults or needs. The patient is full code, full aggressive care. Dictated by: ANA Richard Brayden Brewer MD MNA/SSB /10:53 AM /12:41 PM pt is seen& examined chart reviewed d/w PT d/w Danielle see Orders see H&P d/w RN will f/u Brayden Brewer MD Aug 18, 2016 13:24 MTDD
--- NOTE | 2016-08-18 12:43 | EC ---
Study Study Date:08/18/2016 STUDY CONCLUSIONS SUMMARY - Left ventricle: The cavity size was normal. Wall thickness was increased in a pattern of mild LVH. Systolic function was normal. The estimated ejection fraction was in the range of 55% to 60%. Wall motion was normal; there were no regional wall motion abnormalities. - Tricuspid valve: Mild regurgitation. If LV function is below 40, please consider prescribing an ACEI or ARB or document rationale for non-use. PROCEDURE DATA STUDY STATUS: Elective. Procedure: Transthoracic echocardiography. Image quality was good. Scanning was performed from the parasternal, apical, and subcostal acoustic windows. Study completion: The patient tolerated the procedure well. Transthoracic echocardiography. M-mode, complete 2D, complete spectral Doppler, and color Doppler. Patient status: Inpatient. CARDIAC ANATOMY LEFT VENTRICLE: The cavity size was normal. Wall thickness was increased in a pattern of mild LVH. Systolic function was normal. The estimated ejection fraction was in the range of 55% to 60%. Wall motion was normal; there were no regional wall motion abnormalities. AORTIC VALVE: Trileaflet; normal thickness leaflets. Doppler: Transvalvular velocity was within the normal range. There was no stenosis. No regurgitation. AORTA: Aortic root: The aortic root was normal in size. MITRAL VALVE: Structurally normal valve. Doppler: Transvalvular velocity was within the normal range. There was no evidence for stenosis. Trace regurgitation. Peak gradient: 3mm Hg (D). LEFT ATRIUM: The atrium was normal in size. RIGHT VENTRICLE: The cavity size was normal. Wall thickness was normal. PULMONIC VALVE: Doppler: Transvalvular velocity was within the normal range. There was no evidence for stenosis. No regurgitation. TRICUSPID VALVE: Structurally normal valve. Doppler: Transvalvular velocity was within the normal range. Mild regurgitation. PULMONARY ARTERY: The main pulmonary artery was normal-sized. Systolic pressure was within the normal range. RIGHT ATRIUM: The atrium was normal in size. PERICARDIUM: There was no pericardial effusion. SYSTEMIC VEINS: Inferior vena cava: The vessel was normal in size. BASIC MEASUREMENTS ADULT Normal Left ventricle LV internal dimension, ED, chordal level, 44.7 mm 43-52 PLAX LV internal dimension, ES, chordal level, 33.1 mm 23-38 PLAX Fractional shortening, chordal level, PLAX *26 % >29 LV posterior wall thickness, ED 10.9 mm IVS/LVPW ratio, ED *1.56 <1.3 Ventricular septum Septal thickness, ED 17 mm Aortic valve Leaflet separation 19 mm 15-26 Right ventricle RV internal dimension, ED, PLAX 33.6 mm 19-38 BASIC MEASUREMENTS ADULT Normal Aortic valve Leaflet separation 19 mm 15-26 Aorta Root diameter, ED 31 mm 20-37 Left atrium Anterior-posterior dimension, ES 39 mm 19-40 LA/aortic root ratio 1.26 DOPPLER MEASUREMENTS ADULT Normal Mitral valve Peak E-wave velocity 90.9 cm/s Peak A-wave velocity 132 cm/s Peak gradient, D 3 mm Hg Peak E/A ratio 0.7 LEGEND: Mean values are shown as u=mean value. Asterisk (*) deal values outside specified normal range. Prepared and signed by Rajinder Arechiga-[id number]
--- NOTE | 2016-08-18 13:24 | HHI.PR ---
Objective Objective Results - Vital Signs Date Time Temp Pulse Resp B/P Pulse Ox O2 Delivery O2 Flow Rate FiO2 08/18/16 11:38 73 18 176/76 08/18/16 09:25 98 21 08/18/16 08:27 98.0 76 18 177/80 95 08/18/16 04:37 97.8 68 18 118/62 98 08/18/16 02:19 97 21 08/18/16 00:36 98.0 81 18 169/74 100 Room Air 08/17/16 23:43 60 18 180/91 78 18 193/86 166/80 08/17/16 19:19 64 18 189/79 99 Room Air 08/17/16 18:32 97 Room Air 08/17/16 18:32 98.6 105 212/91 100 Nasal Cannula 2 08/17/16 18:10 20 I/O 08/17/16 08/17/16 08/17/16 08/18/16 08/18/16 08/18/16 07:00 15:00 23:00 07:00 15:00 23:00 Intake Total 480 ml Balance 480 ml Intake Oral 480 ml # Voids 1 Result Diagram: 08/18/16 0439 08/18/16 0439 Other Results Laboratory Tests Test 08/17/16 08/17/16 08/17/16 08/18/16 18:45 19:46 23:59 04:39 White Blood Count 11.5 14.8 Red Blood Count 3.71 4.05 Hemoglobin 12.1 13.1 Hematocrit 33.9 37.3 Mean Corpuscular Volume 91.3 92.2 Mean Corpuscular Hemoglobin 32.7 32.5 Mean Corpuscular Hemoglobin 35.8 35.2 Concent Red Cell Distribution Width 14.2 14.1 Platelet Count 229 266 Mean Platelet Volume 7.3 7.4 Neutrophils (%) (Auto) 71.9 68.3 Lymphocytes (%) (Auto) 17.3 18.7 Monocytes (%) (Auto) 8.6 11.3 Eosinophils (%) (Auto) 1.7 1.1 Basophils (%) (Auto) 0.5 0.6 Neutrophils # (Auto) 8.3 10.1 Lymphocytes # (Auto) 2.0 2.8 Monocytes # (Auto) 1.0 1.7 Eosinophils # (Auto) 0.2 0.2 Basophils # (Auto) 0.1 0.1 CBC Comment DIFF FINAL DIFF FINAL Differential Comment Prothrombin Time 10.8 Prothromb Time International 1.0 Ratio Activated Partial 25.8 Thromboplast Time Sodium Level 129 134 Potassium Level 4.8 4.1 Chloride Level 94 100 Carbon Dioxide Level 26.2 22.5 Anion Gap 9 12 Blood Urea Nitrogen 19 13 Creatinine 0.88 0.82 Estimat Glomerular Filtration 82 89 Rate Random Glucose 118 110 Calcium Level 8.3 8.8 Total Bilirubin 0.4 Aspartate Amino Transf 22 (AST/SGOT) Alanine Aminotransferase 31 (ALT/SGPT) Alkaline Phosphatase 92 Troponin I LESS THAN 0.02 LESS THAN 0.02 LESS THAN 0.02 B-Type Natriuretic Peptide 133 Total Protein 7.6 Albumin 3.9 Urine Color YELLOW Urine Turbidity CLEAR Urine pH 5.5 Urine Specific [place] 1.016 Urine Protein TRACE Urine Glucose (UA) NEG Urine Ketones NEG Urine Occult Blood NEG Urine Nitrite NEG Urine Bilirubin NEG Urine Urobilinogen LESS THAN 2.0 Urine Leukocyte Esterase NEG Urine RBC LESS THAN 1 Urine WBC LESS THAN 1 Urine Mucus FEW Microscopic Urinalysis Comment CULT NOT INDICATED Physical Exam Physical Exam pt is seen& examined chart reviewed d/w PT d/w Danielle see Orders see H&P d/w MAGDALENA will f/u Brayden Brewer MD Aug 18, 2016 13:24
[2016-08-18] MEDS ORDERED: ALBUTEROL SULFATE 90 MCG/ACT HFA 8 GM INHALER INH PRN (13:30)
[2016-08-18] MEDS ORDERED: IOHEXOL 350 MG/ML 10 ML VIAL (for RAD DIAG) IV ONE (13:55)
--- NOTE | 2016-08-18 13:59 | EKG ---
Date Performed: 08/17/2016 Time Performed: 18:21:45 PTAGE: 85 years EKG: Sinus rhythm WITH OCCASIONAL SUPRAVENTRICULAR PREMATURE COMPLEXES MARKED LEFT AXIS DEVIATION RIGHT BUNDLE BRANCH BLOCK POSSIBLE SEPTAL MYOCARDIAL INFARCTION ABNORMAL ECG PREVIOUS TRACING : 06/15/2016 02.34 DOCTOR: Joshua Sol Interpretating Date/Time 08/18/2016 13:53:28
[2016-08-18] MEDS: SODIUM CHLOR 0.45% 1000 ML INJ 1,000 ML IV SCH (14:10)
--- NOTE | 2016-08-18 14:28 | RADRPT ---
EXAM DATE/TIME: 08/18/2016 13:45 [place] COMPARISON: No previous studies available for comparison. INDICATIONS : Syncope. IV CONTRAST: 69 cc Omnipaque 350 (iohexol) IV RADIATION DOSE: 27.69 CTDIvol (mGy) MEDICAL HISTORY : Cerebrovascular disease. Seizures. Hypertension. SURGICAL HISTORY : Tonsillectomy. ENCOUNTER: Initial ACUITY: 1 day PAIN SCALE: 0/10 LOCATION: neck Elevated flow velocities and ICA/CCA ratios have been found to correlate with increased degrees of vessel stenosis, calculated as percentage of diameter relative to a normal segment of distal ICA/CCA. TECHNIQUE: Volumetric scanning was performed using a multirow detector CT scanner. The data was post processed with a variety of visualization algorithms including full-volume maximum intensity pro jection, multiplanar sliding thin-slab reformation, curved-planar reformation, and surface-rendering techniques. Using automated exposure control and adjustment of the mA and/or kV according to patient size, radiation dose was kept as low as reasonably achievable to obtain optimal diagnostic quality i mages. FINDINGS: AORTIC ARCH: There is a three-vessel origin of the great vessels from the aorta. No evidence of ostial narrowing. RIGHT CAROTID: Heavily calcified plaque is identified in the right carotid bifurcation extending into the origin of the internal carotid artery. There is significant noncalcified irregular plaque in the proximal ICA as well. Significant luminal narrowing 70% or greater is noted. LEFT CAROTID: Calcified and noncalcified plaque is identified in the left carotid bifurcation ext ending into the proximal internal carotid artery. There is mild luminal stenosis of approximately 30% . VERTEBRALS: The vertebral arteries are asymmetric in diameter. The left vertebral artery is rayshawn nant. No stenotic lesions are seen. CONCLUSION: Heavily calcified plaque in the right carotid bifurcation causing hemodynamically sig nificant stenosis (greater than 70%) in the proximal ICA. Moderate plaque left carotid bifurcation without evidence of significant internal carotid artery sten osis. No evidence of significant vertebral stenosis. Lon Greene MD on August 18, 2016 at 14:20 Board Certified Radiologist. This report was verified electronically.
[2016-08-18] MEDS: cloNIDine HCL 0.1 MG TAB PO PRN (15:55)
[2016-08-18] MEDS: levETIRAcetam 500 MG TAB PO SCH (17:20)
[2016-08-18] MEDS: MONTELUKAST SODIUM 10 MG TAB PO SCH (22:33)
[2016-08-18] MEDS: carBAMazepine 200 MG TAB PO SCH (22:33)
[2016-08-18] MEDS: ATORVASTATIN 20 MG TAB PO SCH (22:34)
[2016-08-18] MEDS: PROPRANOLOL HCL 10 MG TAB PO SCH (22:34)
[2016-08-19 00:27] VITALS: BP 128/68; PULSE 68; RESP 16; TEMP 98.4; O2SAT 95
[2016-08-19] MEDS: SODIUM CHLOR 0.45% 1000 ML INJ 1,000 ML IV SCH ×2 (03:41→12:01)
[2016-08-19] MEDS: LEVOTHYROXINE SODIUM 50 MCG TAB PO SCH (05:45)
[2016-08-19 07:05] LABS: HEMATOCRIT 35.6 % (39.0-51.0); MEAN CELL VOLUME 91.2 FL (80.0-100.0); MEAN CORPUSCULAR HEMOGLOBIN 31.4 PG (27.0-34.0); MEAN CORPUSCULAR HGB CONC 34.4 % (32.0-36.0); PLATELET COUNT 242 TH/MM3 (150-450); RED BLOOD COUNT 3.91 MIL/MM3 (4.50-5.90); REVIEW FLAG FINAL; WHITE BLOOD COUNT 10.8 TH/MM3 (4.0-11.0)
[2016-08-19 07:28] LABS: BICARBONATE 28.9 MEQ/L (21.0-32.0); HDL CHOLESTEROL 62.3 MG/DL (40.0-60.0); POTASSIUM 4.4 MEQ/L (3.5-5.1)
[2016-08-19 07:56] VITALS: BP 185/79; PULSE 78; RESP 19; TEMP 98.3; O2SAT 98
[2016-08-19 08:09] VITALS: O2SAT 95
[2016-08-19] MEDS: SODIUM CHLORIDE 0.9% FLUSH 5 ML FLUSH FLUSH SCH ×2 (09:00→20:42)
[2016-08-19] MEDS: carBAMazepine 200 MG TAB PO SCH ×2 (09:41→20:42)
[2016-08-19] MEDS: DOCUSATE SODIUM 100 MG CAP PO SCH (09:41)
[2016-08-19] MEDS: CLOPIDOGREL 75 MG TAB PO SCH (09:41)
[2016-08-19] MEDS: levETIRAcetam 500 MG TAB PO SCH ×3 (09:41→17:04)
[2016-08-19] MEDS: PROPRANOLOL HCL 10 MG TAB PO SCH ×2 (09:41→20:42)
[2016-08-19] MEDS: FLUTICASONE 100 MCG/VILANTEROL 25 MCG INHALER INH SCH (09:41)
--- NOTE | 2016-08-19 10:45 | HHI.PR ---
Subjective Subjective Remarks Alert Resting in bed Appetite fair to good Dizzy spells 2 over the past 24 hours No shortness of breath , no chest pain (Danielle Tidwell) Review of Systems Constitutional Constitutional: Weakness (mild generalized) Constitutional Remarks 10 point ROS done positives noted are dizziness and lightheadedness otherwise other systems unremarkable (Danielle Tidwell) Neurologic Neurologic: Lightheaded, Dizziness (2 over the past 24 hours) (Danielle Tidwell) Psychiatric Psychiatric: Normal Mood (Danielle Tidwell) Vitals/Results Intake & Output 08/18/16 08/18/16 08/19/16 15:00 23:00 07:00 Intake Total 480 ml 468 ml Balance 480 ml 468 ml Intake Oral 480 ml 300 ml IV Total 168 ml # Voids 1 2 Vital Signs Vital Signs Date Time Temp Pulse Resp B/P Pulse Ox O2 Delivery O2 Flow Rate FiO2 08/19/16 07:56 98.3 78 19 185/79 98 08/19/16 00:27 98.4 68 16 128/68 95 08/18/16 20:12 97.8 68 18 133/60 96 08/18/16 17:35 168/78 Automatic Cuff 08/18/16 16:33 97.5 75 08/18/16 15:26 79 199/84 08/18/16 11:38 73 18 176/76 (Danielle Tidwell) CBC/BMP: 08/19/16 0614 08/19/16 0614 Lab Results Laboratory Tests Test 08/19/16 06:14 White Blood Count 10.8 TH/MM3 Red Blood Count 3.91 MIL/MM3 Hemoglobin 12.3 GM/DL Hematocrit 35.6 % Mean Corpuscular Volume 91.2 FL Mean Corpuscular Hemoglobin 31.4 PG Mean Corpuscular Hemoglobin 34.4 % Concent Red Cell Distribution Width 14.0 % Platelet Count 242 TH/MM3 Mean Platelet Volume 7.6 FL Sodium Level 137 MEQ/L Potassium Level 4.4 MEQ/L Chloride Level 101 MEQ/L Carbon Dioxide Level 28.9 MEQ/L Anion Gap 7 MEQ/L Blood Urea Nitrogen 12 MG/DL Creatinine 0.85 MG/DL Estimat Glomerular Filtration 86 ML/MIN Rate Random Glucose 101 MG/DL Calcium Level 8.4 MG/DL Triglycerides Level 74 MG/DL Cholesterol Level 130 MG/DL LDL Cholesterol 53 MG/DL HDL Cholesterol 62.3 MG/DL Cholesterol/HDL Ratio 2.08 RATIO Imaging Remarks Last Impressions Neck CTA 08/18/16 0000 Signed Impressions: Service Date/Time: August 13:45 - CONCLUSION: Heavily calcified plaque in the right carotid bifurcation causing hemodynamically significant stenosis (greater than 70%%) in the proximal ICA. Moderate plaque left carotid bifurcation without evidence of significant internal carotid artery stenosis. No evidence of significant vertebral stenosis. Lon Greene MD Carotid Artery Ultrasound 08/18/16 0000 Signed Impressions: Service Date/Time: Wednesday, August 17, 2016 23:48 - CONCLUSION: Elevated ICA/CCA ratio on the right and moderate severity noncalcified plaque indicating possible moderate to high-grade internal carotid artery stenosis. Recommend CTA carotid for further evaluation. Bernard Dorado MD Head CT 08/17/16 1848 Signed Impressions: Service Date/Time: Wednesday, August 17, 2016 19:03 - CONCLUSION: No significant change has occurred. Shane Pro MD Chest X-Ray 08/17/16 1804 Signed Impressions: Service Date/Time: Wednesday, August 17, 2016 18:32 - CONCLUSION: No acute disease. Shane Pro MD Current Medications Active Medications Albuterol Sulfate (Proair Hfa Inh) 2 puff Q6H PRN INH; Start 08/18/16 at 13:30 Atorvastatin Calcium (Lipitor) 20 mg HS PO Last administered on 08/18/16 22:34 ; Admin Dose 20 MG; Start 08/18/16 at 21:00 Carbamazepine (TEGretol) 200 mg BID PO Last administered on 08/19/16 09:41; Admin Dose 200 MG; Start 08/18/16 at 21:00 Clopidogrel Bisulfate (Plavix) 75 mg DAILY PO Last administered on 08/19/16 09: 41; Admin Dose 75 MG; Start 08/19/16 at 09:00 Docusate Sodium (Colace) 100 mg DAILY PO Last administered on 08/19/16 09:41; Admin Dose 100 MG; Start 08/19/16 at 09:00 Fluticasone/ Vilanterol (Breo Ellipta 100-25 Inh) 1 puff DAILY INH Last administered on 08/19/16 09:41; Admin Dose 1 PUFF; Start 08/19/16 at 09:00 Iohexol (Omnipaque 350 Inj) 69 ml STK-MED ONCE IV Last administered on 13:55; Admin Dose 69 ML; Start 08/18/16 at 13:55; Stop 08/18/16 at 13:56; Status DC Levetriacetam (Keppra) 500 mg TID PO Last administered on 08/19/16 09:41; Admin Dose 500 MG; Start 08/18/16 at 18:00 Levothyroxine Sodium (Synthroid) 50 mcg DAILY@06 PO Last administered on 05:45; Admin Dose 50 MCG; Start 08/19/16 at 06:00 Montelukast Sodium (Singulair) 10 mg HS PO Last administered on 08/18/16 22:33 ; Admin Dose 10 MG; Start 08/18/16 at 21:00 Propranolol HCl (Inderal) 10 mg Q12HR PO Last administered on 08/19/16 09:41; Admin Dose 10 MG; Start 08/18/16 at 21:00 Sodium Chloride (1/2 NS 1000 ml Inj) 1,000 ml @ 84 mls/hr [id number] IV Last administered on 08/19/16 03:41; Admin Dose 84 MLS/HR; Start 08/18/16 at 13:15 ( Danielle Tidwell) Physical Exam General General Appearance: Well Developed, Well Nourished (slim), Comfortable (Danielle TidwellP) Eyes Eye Exam: Pupils Equal, Pupils Reactive (Danielle TidwellP) Ears & Nose Ears & Nose Exam: Nasal Mucosa [place] (Danielle TidwellP) Throat Throat Exam: Oral Mucosa [place] & Moist (Danielle TidwellP) Neck Neck Exam: Bruits (right carotid) (Danielle TidwellP) Pulmonary Resp Exam: Clear Bilaterally, Breath Sounds Equal, No Distress (Danielle TidwellP) Cardiology CV Exam: Regular (Danielle TidwellP) Gastrointestinal/Abdomen GI Exam: Soft, Non-Tender, Bowel Sounds Present (Hetal Tidwellan RaisaDenny SPRINGERP) Genitourinary Exam: Clear Urine (Hetal Tidwellrowena SPRINGERP) Musculoskeletal MS Exam: Joints Intact, Good Strength (Hetal Tidwellrowena Fox PATIENT FINANCIAL SPECIALIST) Integumentary Skin Exam: Warm, Dry, Intact (RhodeliaDanielle M. PATIENT FINANCIAL SPECIALIST) Extremeties Extremities Exam: No Edema (Hetal Tidwellrowena Fox PATIENT FINANCIAL SPECIALIST) Neurologic Neuro Exam: Alert, Awake, Speech Clear, Moving All Extremities (Hetal Tidwellan RaisaDenny PATIENT FINANCIAL SPECIALIST) VTE Prophylaxis VTE Prophylaxis Meds: Heparin VTE Remarks And Plavix (RhodeliaDaniellerowena SPRINGERP) Assessment/Plan Assessment/Plan 1. Syncopal episode. 2. Carotid artery disease. 3. Leukocytosis. 4. History of seizure disorders. 5. COPD. 6. Dementia. 7. Debility. 8. Hypertension. 9. Peripheral artery disease. PLAN 1. Monitor his vital signs q. 4 and as needed. Systolic pressure elevated this a.m., patient has by mouth clonidine if needed for BP greater than 180. 2. Labs monitor, hemoglobin stable, no leukocytosis Patient continues to have 2 dizzy spells even lying in the bed over the past 24 hours. CTA done with right carotid stenosis noted. Vascular surgery consult done. This patient has spoke with his family, agrees to see vascular surgeon 3. DVT prophylaxis with heparin. 4. Clonidine q. 6 p.r.n. for any increased blood pressure with a systolic greater than 180. 5. Patient to have staff assistance with him even get up to the bedside commode for safety. 6. Pain management, monitor any change in status 7. ECG monitoring. 8. IV access. 9. O2 as warranted. (YawDaniellerowena SPRINGERP) Assessment/Plan pt is seen & examined CTA neck findings noted Vascular surgery input awaited , d/w Dr Anna , he will be seeing the pt shortly will f/u Addendum 9.[address] Anna 's input appreciated ,He rec Carotid artery endarterectomy d/t severe sig carotid A stenosis pt meets inpatient criteria .He needs surgery / expected LOS is 4 to 5 days , possible d/c home when stable . will change him to Inpatient will f/u. (Brayden Brewer MD) Danielle Tidwell Aug 19, 2016 10:45 Brayden Brewer MD Aug 19, 2016 12:07
--- NOTE | 2016-08-19 11:40 | PD.CAR.PN ---
CVT Progress Note Subjective/Hospital Course: My established patient Will see him today Thanks J Objective: Vital Signs Date Time Temp Pulse Resp B/P Pulse Ox O2 Delivery O2 Flow Rate FiO2 08/19/16 08:09 95 21 08/19/16 07:56 98.3 78 19 185/79 98 08/19/16 00:27 98.4 68 16 128/68 95 08/18/16 20:12 97.8 68 18 133/60 96 08/18/16 17:35 168/78 Automatic Cuff 08/18/16 16:33 97.5 75 08/18/16 15:26 79 199/84 Labs: Laboratory Tests Test 08/19/16 06:14 White Blood Count 10.8 TH/MM3 (4.0-11.0) Red Blood Count 3.91 MIL/MM3 (4.50-5.90) Hemoglobin 12.3 GM/DL (13.0-17.0) Hematocrit 35.6 % (39.0-51.0) Mean Corpuscular Volume 91.2 FL (80.0-100.0) Mean Corpuscular Hemoglobin 31.4 PG (27.0-34.0) Mean Corpuscular Hemoglobin 34.4 % Concent (32.0-36.0) Red Cell Distribution Width 14.0 % (11.6-17.2) Platelet Count 242 TH/MM3 (150-450) Mean Platelet Volume 7.6 FL (7.0-11.0) Sodium Level 137 MEQ/L (136-145) Potassium Level 4.4 MEQ/L (3.5-5.1) Chloride Level 101 MEQ/L (98-107) Carbon Dioxide Level 28.9 MEQ/L (21.0-32.0) Anion Gap 7 MEQ/L (5-15) Blood Urea Nitrogen 12 MG/DL (7-18) Creatinine 0.85 MG/DL (0.60-1.30) Estimat Glomerular Filtration 86 ML/MIN (>89) Rate Random Glucose 101 MG/DL (74-106) Calcium Level 8.4 MG/DL (8.5-10.1) Triglycerides Level 74 MG/DL (42-150) Cholesterol Level 130 MG/DL (120-200) LDL Cholesterol 53 MG/DL (0-99) HDL Cholesterol 62.3 MG/DL (40.0-60.0) Cholesterol/HDL Ratio 2.08 RATIO Result Diagram: 08/19/16 0614 08/19/16 0614 Devorah Ferguson MD Aug 19, 2016 11:40
[2016-08-19 12:11] VITALS: BP 160/81; PULSE 67; RESP 17; TEMP 98.3; O2SAT 98
[2016-08-19] MEDS: HEPARIN SODIUM - SQ 10,000 UNITS/ML VIAL SQ SCH ×2 (12:52→23:29)
[2016-08-19 16:04] VITALS: BP 136/65; PULSE 76; RESP 18; TEMP 99.2; O2SAT 95
--- NOTE | 2016-08-19 19:06 | PD.CAR.PN ---
CVT Progress Note Subjective/Hospital Course: My established patient Will see him today Thanks J Patient with tight right carotid stenosis and repeated TIAs. Patient is of advanced age and clearly there is some issues to consider regarding the going ahead with surgery. I've discussed this case with Dr. Lon Greene for interventional radiology and the patient is according to him a poor candidate for the same due to the nature of his black heterogeneous plaque and possibility this might embolized upward. I fully agree with his assessment. I've discussed this with patient at length and he'll be tentatively scheduled for surgery Monday He is a relatively high risk despite the good echocardiogram due to advanced age and other comorbidities but that this point I do not believe that she should be denied surgery based on these factors For right carotid endarterectomy Monday. We will continue Plavix prior and through the surgery and not stop it. Objective: Vital Signs Date Time Temp Pulse Resp B/P Pulse Ox O2 Delivery O2 Flow Rate FiO2 08/19/16 16:04 99.2 76 18 136/65 95 08/19/16 12:11 98.3 67 17 160/81 98 08/19/16 08:09 95 21 08/19/16 07:56 98.3 78 19 185/79 98 08/19/16 00:27 98.4 68 16 128/68 95 08/18/16 20:12 97.8 68 18 133/60 96 Result Diagram: 08/19/16 0614 08/19/16 0614 Devorah Ferguson MD Aug 19, 2016 19:06
[2016-08-19 19:18] VITALS: BP 135/63; PULSE 83; RESP 20; TEMP 98.6; O2SAT 96
--- NOTE | 2016-08-19 19:41 | MB ---
cc: MD KIM,[facility] DATE OF CONSULTATION: 08/19/2016. REASON FOR CONSULTATION: Right internal carotid artery stenosis, repeated TIAs. HISTORY OF PRESENT ILLNESS: This pleasant 85-year-old gentleman who is known to me from previous encounters presented to the emergency room with a syncopal episode he sustained while sitting in a wheelchair. The patient states that he was sitting at the table with his and then felt lightheaded and weak. He did not fall out of the chair. He came back-to, vomited and was nauseous but that has passed since. The patient has had two more events like this in the past; the first one when I saw him in November of last year. At that time, because of the patient's advanced age, decision was made to watch the patient and see how he does on Plavix. PAST MEDICAL HISTORY: 1. Arthritis. 2. History of prostate cancer. 3. Cardiac disease. 4. Hyperlipidemia. 5. COPD. 6. Previous TIAs. 7. Hypertension. 8. History of seizures. PAST SURGICAL HISTORY: 1. Appendectomy. 2. Bilateral hip replacement. 3. Bilateral cataract surgery. 4. Prostatectomy. 5. Tonsillectomy. ALLERGIES: ALLERGIES CAN BE FOUND ON THE RECORD. SOCIAL HISTORY: The patient does not smoke, does not drink, is , lives with his in an assisted living facility. MEDICATIONS: Medications can be found on the record, and include Plavix. REVIEW OF SYSTEMS: The patient is now awake, alert, oriented. He is slightly slurring his words. He has slight dysarthria and slight aphasia. He cannot come up with words clearly. PHYSICAL EXAMINATION: GENERAL: The physical examination reveals a pleasant 85-year-old gentleman in no acute distress. HEAD, EYES, EARS, NOSE, THROAT: Normocephalic. No trauma to the head. Pupils equal and reactive. Extraocular muscles intact. NECK: The neck is supple. Bilateral carotid pulses. Faint right-sided bruit. CHEST: Bilateral breath sounds decreased over both lung ashby consistent with COPD and pulmonary moderate cachexia with loss of chest wall musculature. HEART: Regular rhythm. ABDOMEN: Soft, patulous, active bowel sounds. EXTREMITIES: The patient has bilateral femoral pulses. On palpation, the popliteals by Doppler and posterior tibial by Doppler. Dorsalis pedis on palpation. No signs of acute vascular deficit. Capillary refill is intact. BACK: Grossly normal. NEUROLOGIC: Neurologically the patient is now fully intact motorically except for slight dysarthria. IMPRESSION AND RECOMMENDATIONS: I reviewed laboratory and diagnostic procedures. The gentleman has about 80% carotid stenosis on the right and about 30 on the left. Last year, I tried to watch the patient and not to operate on him and allow him to perhaps manage only medically. At this point, the patient has had repeated TIAs and I believe that his options are limited. Endovascular stenting has been discussed with Dr. Lon Greene while looking at a CT scan, and according to Dr. Greene, who is an expert on this, probably the patient would not be a good candidate for endovascular stenting because of the kind of raggedy nature of his plaque and the length of the plaque and high incidence of this flushing off into the brain giving him a stroke. So, he considered that the patient would be best served by open surgery. I agree with that assessment. Some studies show that patient who have less than 4 years of natural life left probably should not be subjected to carotid surgery; however, in this particular situation, the patient is awake, alert, oriented and living a comfortable life, is not demented and therefore, surgery should be offered to the patient and not be denied. I have discussed this with the patient at length. I have discussed that and also with his caregiver, who is his power of welding machine operator thermit, and at this point, the patient will be scheduled for a carotid endarterectomy. Devorah HERRERA/CHUNG /6:57 PM /7:20 PM
[2016-08-19] MEDS: ATORVASTATIN 20 MG TAB PO SCH (20:42)
[2016-08-19] MEDS: MONTELUKAST SODIUM 10 MG TAB PO SCH (20:45)
[2016-08-20 00:25] VITALS: BP 164/77; PULSE 64; RESP 20; TEMP 97.4; O2SAT 95
[2016-08-20] MEDS: SODIUM CHLOR 0.45% 1000 ML INJ 1,000 ML IV SCH (01:00)
[2016-08-20 04:00] VITALS: BP 149/69; PULSE 65; RESP 20; TEMP 97.7; O2SAT 99
[2016-08-20] MEDS: LEVOTHYROXINE SODIUM 50 MCG TAB PO SCH (05:35)
[2016-08-20] MEDS: levETIRAcetam 500 MG TAB PO SCH ×3 (08:13→17:54)
[2016-08-20] MEDS: PROPRANOLOL HCL 10 MG TAB PO SCH ×2 (08:13→20:28)
[2016-08-20] MEDS: FLUTICASONE 100 MCG/VILANTEROL 25 MCG INHALER INH SCH (08:13)
[2016-08-20] MEDS: SODIUM CHLORIDE 0.9% FLUSH 5 ML FLUSH FLUSH SCH ×2 (08:13→20:28)
[2016-08-20] MEDS: DOCUSATE SODIUM 100 MG CAP PO SCH (08:13)
[2016-08-20] MEDS: carBAMazepine 200 MG TAB PO SCH ×2 (08:14→20:28)
[2016-08-20] MEDS: CLOPIDOGREL 75 MG TAB PO SCH (08:14)
--- NOTE | 2016-08-20 08:17 | HHI.PR ---
Subjective Subjective Remarks no dizziness no syncopal episodes no cp no sob no acute changes overnight agreeable with having surgery alert, oriented x 3 Review of Systems Constitutional Constitutional: Weakness (mild generalized) Constitutional Remarks 12 point review of systems completed, negative except as noted above Neurologic Neurologic: Lightheaded, Dizziness (2 over the past 24 hours) Psychiatric Psychiatric: Normal Mood Vitals/Results Intake & Output 08/19/16 08/19/16 08/20/16 15:00 23:00 07:00 Intake Total 360 ml 120 ml Output Total 200 ml 120 ml Balance 160 ml 0 ml Intake Oral 360 ml 120 ml Output Urine Total 200 ml 120 ml # Voids 1 3 1 # Bowel Movements 1 0 Vital Signs Vital Signs Date Time Temp Pulse Resp B/P Pulse Ox O2 Delivery O2 Flow Rate FiO2 08/20/16 04:00 97.7 65 20 149/69 99 08/20/16 00:25 97.4 64 20 164/77 95 08/19/16 19:18 98.6 83 20 135/63 96 08/19/16 16:04 99.2 76 18 136/65 95 08/19/16 12:11 98.3 67 17 160/81 98 CBC/BMP: 08/19/16 0614 08/19/16 0614 Physical Exam General General Appearance: Well Developed, Well Nourished, Comfortable Eyes Eye Exam: Pupils Equal, Pupils Reactive Ears & Nose Ears & Nose Exam: Nasal Mucosa [place] Throat Throat Exam: Oral Mucosa [place] & Moist Neck Neck Exam: Neck Supple, Trachea Midline, Bruits (right carotid) Pulmonary Resp Exam: Clear Bilaterally, Breath Sounds Equal, No Distress Cardiology CV Exam: Regular Gastrointestinal/Abdomen GI Exam: Soft, Non-Tender, Bowel Sounds Present, Non-Distended Musculoskeletal MS Exam: Joints Intact, Good Strength Integumentary Skin Exam: Warm, Dry, Intact Extremeties Extremities Exam: No Edema Neurologic Neuro Exam: Alert, Awake, Oriented, Speech Clear, Moving All Extremities, No Focal Deficits Psychiatric Psych Exam: Appropriate Responses VTE Prophylaxis VTE Prophylaxis Meds: Heparin Assessment/Plan Problem List: (1) Syncope (2) Seizure disorder (3) Hypothyroidism (4) Hx-TIA (transient ischemic attack) (5) HTN (hypertension) (6) HLD (hyperlipidemia) (7) Carotid stenosis, right (8) Peripheral arterial disease (9) Dementia Assessment/Plan neuro checks BP management-continue home meds and PRN Clonidine right carotid stenosis, needs surgery appreciate Dr. Anna's input, plans surgery for poss Monday. Endovascular repair not possible continue with Plavix, statins Continue Tegretol Seizure precautions DVT prophylaxis with heparin. Labs reviewed stable continue with above tx D/W RN D/W Dr. Brewer D/W pt This patient was seen by myself and Dr. Brewer, this note is written on his behalf Problem Qualifiers (1) Syncope: Qualified Code: R55 - Syncope, unspecified syncope type (2) Hypothyroidism: Qualified Code: E03.9 - Hypothyroidism, unspecified type (3) HTN (hypertension): Qualified Code: I10 - Essential hypertension (4) HLD (hyperlipidemia): Qualified Code: E78.5 - Hyperlipidemia, unspecified hyperlipidemia type (5) Dementia: Qualified Code: F03.90 - Dementia without behavioral disturbance, unspecified dementia type Delaney Crump Aug 20, 2016 08:17
[2016-08-20 11:26] VITALS: BP 134/64; PULSE 65; RESP 20; TEMP 98.5; O2SAT 97
[2016-08-20] MEDS: HEPARIN SODIUM - SQ 10,000 UNITS/ML VIAL SQ SCH ×2 (12:05→23:50)
--- NOTE | 2016-08-20 12:54 | PD.CAR.PN ---
CVT Progress Note Subjective/Hospital Course: My established patient Will see him today Thanks J Patient with tight right carotid stenosis and repeated TIAs. Patient is of advanced age and clearly there is some issues to consider regarding the going ahead with surgery. I've discussed this case with Dr. Lon Greene for interventional radiology and the patient is according to him a poor candidate for the same due to the nature of his black heterogeneous plaque and possibility this might embolized upward. I fully agree with his assessment. I've discussed this with patient at length and he'll be tentatively scheduled for surgery Monday He is a relatively high risk despite the good echocardiogram due to advanced age and other comorbidities but that this point I do not believe that she should be denied surgery based on these factors For right carotid endarterectomy Monday. We will continue Plavix prior and through the surgery and not stop it. 08/20/16 Patient still had 2 episodes of lightheadedness while here No lateralization Remains neurologically intact with slight speech deficit and the dysphasia. I discussed at length the risks and benefits with the patient and his caregiver. Understanding the risk at this higher range but also understanding the risk of stroke without surgery we will proceed with carotid endarterectomy tomorrow Objective: Vital Signs Date Time Temp Pulse Resp B/P Pulse Ox O2 Delivery O2 Flow Rate FiO2 08/20/16 11:26 98.5 65 20 134/64 97 08/20/16 04:00 97.7 65 20 149/69 99 08/20/16 00:25 97.4 64 20 164/77 95 08/19/16 19:18 98.6 83 20 135/63 96 08/19/16 16:04 99.2 76 18 136/65 95 Result Diagram: 08/19/16 0614 08/19/16 0614 Devorah Ferguson MD Aug 20, 2016 12:54
[2016-08-20] MEDS ORDERED: ceFAZolin 2 GM PREMIX 50 ML IV SCH (13:00)
--- NOTE | 2016-08-20 15:29 | MB ---
cc: DEVORAH ALVAREZ MD, JAMES DATE OF CONSULTATION: 08/20/2016 REFERRING PHYSICIAN Devorah Alvarez MD CONSULTATIONS Second opinion regarding right carotid stenosis. HISTORY This pleasant 85-year-old hypertensive male with hyperlipidemia presented to the emergency room following an episode of near syncope. He was sitting at the table with his when he developed lightheadedness and diffuse weakness. Temporary, brief loss of consciousness. No associated cardiopulmonary symptoms or postictal changes were witnessed by the . He experienced two similar episodes during the past year during which he developed lightheadedness, felt as if he would pass out but after laying on the floor was able to regain his abilities. No documented history of cerebral infarction and no history of seizures. He also has no history of myocardial infarction or documented cardiac arrhythmias. Imaging studies suggest hemodynamically significant the right carotid stenosis and CT scan shows no evidence of acute or previous cerebral infarctions. PAST MEDICAL HISTORY 1. Hypertension. 2. Hyperlipidemia. 3. COPD. 4. Prostate cancer. 5. Degenerative osteoarthritis. PAST SURGICAL HISTORY 1. Appendectomy. 2. Bilateral hip arthroplasty. 3. Bilateral cataracts. 4. Prostatectomy. 5. Tonsillectomy. MEDICATIONS Medications are detailed in the reconciliation form. SOCIAL HISTORY The patient is retired. Originally from [place], [place]. Lives in an assisted living facility with his . PHYSICAL EXAMINATION GENERAL: A well-developed, well-nourished 85-year-old male with a very pleasant affect. NECK: Neck is supple. A faint right carotid bifurcation bruit. No neck vein distension or HJR. LUNGS: The lungs are symmetrically expanded with diminished breath sounds throughout. CARDIOVASCULAR: Cardiac rhythm is currently sinus. No rubs, gallops or murmurs. ABDOMEN: The abdomen is soft, nontender. Appendectomy scar uncomplicated. EXTREMITIES: Bilateral total hip arthroplasty scars. Uncomplicated. Femoral and popliteal pulses are easily palpable. NEUROLOGIC: Cranial nerves II through XII intact. No sensory or motor deficits were grossly apparent. Cognitive functions are sharp. IMPRESSION AND RECOMMENDATIONS 1. Right carotid stenosis - possibly symptomatic. 2. Hypertension/hyperlipidemia/COPD - prior [id number] smoker. I agree with Dr. Alvarez's evaluation and recommendations. Despite his advanced age, this gentleman is cognitively well maintained and remains physically active. If his recurring episodes of TIA are indeed due to the right carotid stenosis, his future risk of major infarction is quite significant. I see no reason to deny him a carotid endarterectomy just because of his age, particularly if we can preclude future major cerebral infarct. Thank you for allowing me to participate in this gentleman's care. MD PETER Dalton/BJClara /2:57 PM /3:08 PM
[2016-08-20 15:34] VITALS: BP 174/91; PULSE 85; RESP 20; TEMP 98; O2SAT 97
[2016-08-20 19:12] VITALS: BP 171/77; PULSE 79; RESP 19; TEMP 98.2; O2SAT 95
[2016-08-20] MEDS: ATORVASTATIN 20 MG TAB PO SCH (20:28)
[2016-08-20] MEDS: MONTELUKAST SODIUM 10 MG TAB PO SCH (20:29)
[2016-08-21 00:28] VITALS: BP 133/63; PULSE 64; RESP 18; TEMP 98.4; O2SAT 98
[2016-08-21 05:18] VITALS: BP 159/72; PULSE 64; RESP 19; TEMP 98; O2SAT 98
[2016-08-21] MEDS: LEVOTHYROXINE SODIUM 50 MCG TAB PO SCH (05:36)
[2016-08-21 07:40] VITALS: BP 167/72; PULSE 61; RESP 20; TEMP 97.9; O2SAT 96
--- NOTE | 2016-08-21 07:54 | HHI.PR ---
Subjective Subjective Remarks no dizziness no syncopal episodes no cp no sob no acute changes overnight NPO for surgery today Review of Systems Constitutional Constitutional Remarks 12 point review of systems completed, negative except as noted above Neurologic Neurologic: Lightheaded, Dizziness (2 over the past 24 hours) Psychiatric Psychiatric: Normal Mood Vitals/Results Intake & Output 08/20/16 08/20/16 08/21/16 15:00 23:00 07:00 Intake Total 240 ml Output Total 550 ml Balance 240 ml -550 ml Oral Supplement 240 ml Output Urine Total 550 ml Vital Signs Vital Signs Date Time Temp Pulse Resp B/P Pulse Ox O2 Delivery O2 Flow Rate FiO2 08/21/16 07:40 97.9 61 20 167/72 96 08/21/16 05:18 98.0 64 19 159/72 98 08/21/16 00:28 98.4 64 18 133/63 98 08/20/16 19:12 98.2 79 19 171/77 95 08/20/16 15:34 98.0 85 20 174/91 97 08/20/16 11:26 98.5 65 20 134/64 97 CBC/BMP: 08/19/16 0614 08/19/16 0614 Lab Results Laboratory Tests Test 08/20/16 15:27 Blood Type A POSITIVE Antibody Screen NEGATIVE Physical Exam General General Appearance: Well Developed, Well Nourished, Comfortable Eyes Eye Exam: Pupils Equal, Pupils Reactive Ears & Nose Ears & Nose Exam: Nasal Mucosa [place] Throat Throat Exam: Oral Mucosa [place] & Moist Neck Neck Exam: Neck Supple, Trachea Midline, Bruits (right carotid) Pulmonary Resp Exam: Clear Bilaterally, Breath Sounds Equal, No Distress Cardiology CV Exam: Regular Gastrointestinal/Abdomen GI Exam: Soft, Non-Tender, Bowel Sounds Present, Non-Distended Musculoskeletal MS Exam: Joints Intact, Good Strength Integumentary Skin Exam: Warm, Dry, Intact Extremeties Extremities Exam: No Edema Neurologic Neuro Exam: Alert, Awake, Oriented, Speech Clear, Moving All Extremities, No Focal Deficits Psychiatric Psych Exam: Appropriate Responses VTE Prophylaxis VTE Prophylaxis Meds: Heparin Assessment/Plan Problem List: (1) Syncope (2) Seizure disorder (3) Hypothyroidism (4) Hx-TIA (transient ischemic attack) (5) HTN (hypertension) (6) HLD (hyperlipidemia) (7) Carotid stenosis, right (8) Peripheral arterial disease (9) Dementia Assessment/Plan neuro checks BP management-continue home meds and PRN Clonidine right carotid stenosis, needs surgery appreciate Dr. Anna's input, plans surgery for today. continue with Plavix, statins Continue Tegretol Seizure precautions DVT prophylaxis with heparin. NPO going to OR today Labs in am D/W RN D/W Dr. Brewer D/W pt This patient was seen by myself and Dr. Brewer, this note is written on his behalf Problem Qualifiers (1) Syncope: Qualified Code: R55 - Syncope, unspecified syncope type (2) Hypothyroidism: Qualified Code: E03.9 - Hypothyroidism, unspecified type (3) HTN (hypertension): Qualified Code: I10 - Essential hypertension (4) HLD (hyperlipidemia): Qualified Code: E78.5 - Hyperlipidemia, unspecified hyperlipidemia type (5) Dementia: Qualified Code: F03.90 - Dementia without behavioral disturbance, unspecified dementia type Delaney Crump Aug 21, 2016 07:54 Delaney Crump Aug 21, 2016 07:54
[2016-08-21] MEDS: carBAMazepine 200 MG TAB PO SCH ×2 (08:25→20:10)
[2016-08-21] MEDS: levETIRAcetam 500 MG TAB PO SCH ×3 (08:25→17:39)
[2016-08-21] MEDS: PROPRANOLOL HCL 10 MG TAB PO SCH ×2 (08:25→20:09)
[2016-08-21] MEDS: DOCUSATE SODIUM 100 MG CAP PO SCH (08:25)
[2016-08-21] MEDS: SODIUM CHLORIDE 0.9% FLUSH 5 ML FLUSH FLUSH SCH ×2 (08:25→20:07)
[2016-08-21] MEDS: FLUTICASONE 100 MCG/VILANTEROL 25 MCG INHALER INH SCH (08:25)
[2016-08-21] MEDS: CLOPIDOGREL 75 MG TAB PO SCH (09:00)
[2016-08-21] MEDS: HEPARIN SODIUM - SQ 10,000 UNITS/ML VIAL SQ SCH (12:00)
[2016-08-21] MEDS ORDERED: LIDOCAINE HCL 1% 50 ML VIAL ONE (13:06)
[2016-08-21] MEDS ORDERED: HEPARIN SODIUM - SQ 10,000 UNITS/ML VIAL ONE (16:42)
[2016-08-21] MEDS ORDERED: HEPARIN SODIUM - IV 10,000 UNITS/10 ML VIAL ONE (16:43)
[2016-08-21] MEDS ORDERED: PROTAMINE SULFATE 50 MG/5 ML VIAL ONE (16:43)
[2016-08-21 18:21] VITALS: BP 182/98; PULSE 88; RESP 17; O2SAT 97
--- NOTE | 2016-08-21 19:12 | PD.CAR.PN ---
CVT Progress Note Subjective/Hospital Course: My established patient Will see him today Thanks J Patient with tight right carotid stenosis and repeated TIAs. Patient is of advanced age and clearly there is some issues to consider regarding the going ahead with surgery. I've discussed this case with Dr. Lon Greene for interventional radiology and the patient is according to him a poor candidate for the same due to the nature of his black heterogeneous plaque and possibility this might embolized upward. I fully agree with his assessment. I've discussed this with patient at length and he'll be tentatively scheduled for surgery Monday He is a relatively high risk despite the good echocardiogram due to advanced age and other comorbidities but that this point I do not believe that she should be denied surgery based on these factors For right carotid endarterectomy Monday. We will continue Plavix prior and through the surgery and not stop it. 08/20/16 Patient still had 2 episodes of lightheadedness while here No lateralization Remains neurologically intact with slight speech deficit and the dysphasia. I discussed at length the risks and benefits with the patient and his caregiver. Understanding the risk at this higher range but also understanding the risk of stroke without surgery we will proceed with carotid endarterectomy tomorrow 08/21/16 Patient scheduled for RICAE today. Dr Early's opinion and expert consult greatly appreciated. Due to trauma load, my schedule and the OR schedule was overloaded. Surgery postponed till Monday a.m. Discussed with the patient and he is agreeable Objective: Vital Signs Date Time Temp Pulse Resp B/P Pulse Ox O2 Delivery O2 Flow Rate FiO2 08/21/16 18:21 88 17 182/98 97 08/21/16 07:40 97.9 61 20 167/72 96 08/21/16 05:18 98.0 64 19 159/72 98 08/21/16 00:28 98.4 64 18 133/63 98 08/20/16 19:12 98.2 79 19 171/77 95 Result Diagram: 08/19/16 0614 08/19/16 0614 Devorah Ferguson MD Aug 21, 2016 19:11
[2016-08-21 20:00] VITALS: BP 130/63; PULSE 74; RESP 20; TEMP 98; O2SAT 96
[2016-08-21] MEDS: MONTELUKAST SODIUM 10 MG TAB PO SCH (20:07)
[2016-08-21] MEDS: ATORVASTATIN 20 MG TAB PO SCH (20:07)
[2016-08-22] VITALS (7 sets, daily range): BP systolic 145–160; BP diastolic 56–79; PULSE 66–88; RESP 16–18; TEMP 98–98.6; O2SAT 97–100
[2016-08-22] MEDS: LEVOTHYROXINE SODIUM 50 MCG TAB PO SCH (05:51)
[2016-08-22 06:50] LABS: HEMATOCRIT 35.4 % (39.0-51.0); MEAN CELL VOLUME 91.4 FL (80.0-100.0); MEAN CORPUSCULAR HEMOGLOBIN 32.2 PG (27.0-34.0); MEAN CORPUSCULAR HGB CONC 35.2 % (32.0-36.0); PLATELET COUNT 235 TH/MM3 (150-450); RED BLOOD COUNT 3.88 MIL/MM3 (4.50-5.90); RED CELL DISTRIBUTION WIDTH 13.9 % (11.6-17.2); REVIEW FLAG FINAL; WHITE BLOOD COUNT 8.9 TH/MM3 (4.0-11.0)
[2016-08-22 07:14] LABS: POTASSIUM 4.2 MEQ/L (3.5-5.1)
[2016-08-22] MEDS: levETIRAcetam 500 MG TAB PO SCH ×3 (08:58→18:00)
[2016-08-22] MEDS: CLOPIDOGREL 75 MG TAB PO SCH (08:58)
[2016-08-22] MEDS: DOCUSATE SODIUM 100 MG CAP PO SCH (08:58)
[2016-08-22] MEDS: carBAMazepine 200 MG TAB PO SCH ×2 (08:58→21:27)
[2016-08-22] MEDS: SODIUM CHLORIDE 0.9% FLUSH 5 ML FLUSH FLUSH SCH ×2 (08:59→21:00)
[2016-08-22] MEDS: FLUTICASONE 100 MCG/VILANTEROL 25 MCG INHALER INH SCH (08:59)
[2016-08-22] MEDS: PROPRANOLOL HCL 10 MG TAB PO SCH ×2 (09:00→21:27)
--- NOTE | 2016-08-22 10:27 | HHI.PR ---
Subjective Subjective Remarks no dizziness no syncopal episodes no cp no sob no acute changes overnight surgery postponed for today Review of Systems Constitutional Constitutional Remarks 12 point review of systems completed, negative except as noted above Neurologic Neurologic: Lightheaded, Dizziness (2 over the past 24 hours) Psychiatric Psychiatric: Normal Mood Vitals/Results Intake & Output 08/21/16 08/21/16 08/22/16 15:00 23:00 07:00 Intake Total 242 ml Output Total 500 ml Balance -258 ml Intake Oral 240 ml IV Total 2 ml Output Urine Total 500 ml # Voids 1 2 # Bowel Movements 0 Vital Signs Vital Signs Date Time Temp Pulse Resp B/P Pulse Ox O2 Delivery O2 Flow Rate FiO2 08/22/16 07:30 98.3 76 16 149/79 99 08/22/16 07:30 78 08/22/16 07:30 99 Room Air 08/22/16 04:00 70 08/22/16 03:43 Room Air 08/22/16 03:43 98.6 66 18 145/79 97 08/22/16 00:00 98.2 71 18 147/76 97 08/22/16 00:00 Room Air 08/22/16 00:00 71 08/21/16 20:00 Room Air 08/21/16 20:00 74 08/21/16 20:00 98.0 74 20 130/63 96 08/21/16 18:21 88 17 182/98 97 CBC/BMP: 08/22/16 0555 08/22/16 0555 Lab Results Laboratory Tests Test 08/22/16 05:55 White Blood Count 8.9 TH/MM3 Red Blood Count 3.88 MIL/MM3 Hemoglobin 12.5 GM/DL Hematocrit 35.4 % Mean Corpuscular Volume 91.4 FL Mean Corpuscular Hemoglobin 32.2 PG Mean Corpuscular Hemoglobin 35.2 % Concent Red Cell Distribution Width 13.9 % Platelet Count 235 TH/MM3 Mean Platelet Volume 7.8 FL Sodium Level 141 MEQ/L Potassium Level 4.2 MEQ/L Chloride Level 106 MEQ/L Carbon Dioxide Level 25.0 MEQ/L Anion Gap 10 MEQ/L Blood Urea Nitrogen 17 MG/DL Creatinine 0.80 MG/DL Estimat Glomerular Filtration 92 ML/MIN Rate Random Glucose 97 MG/DL Calcium Level 8.9 MG/DL Physical Exam General General Appearance: Well Developed, Well Nourished, Comfortable Eyes Eye Exam: Pupils Equal, Pupils Reactive Ears & Nose Ears & Nose Exam: Nasal Mucosa [place] Throat Throat Exam: Oral Mucosa [place] & Moist Neck Neck Exam: Neck Supple, Trachea Midline, Bruits (right carotid) Pulmonary Resp Exam: Clear Bilaterally, Breath Sounds Equal, No Distress Cardiology CV Exam: Regular Gastrointestinal/Abdomen GI Exam: Soft, Non-Tender, Bowel Sounds Present, Non-Distended Musculoskeletal MS Exam: Joints Intact, Good Strength Integumentary Skin Exam: Warm, Dry, Intact Extremeties Extremities Exam: No Edema Neurologic Neuro Exam: Alert, Awake, Oriented, Speech Clear, Moving All Extremities, No Focal Deficits Psychiatric Psych Exam: Appropriate Responses VTE Prophylaxis VTE Prophylaxis Meds: Heparin Assessment/Plan Problem List: (1) Syncope (2) Seizure disorder (3) Hypothyroidism (4) Hx-TIA (transient ischemic attack) (5) HTN (hypertension) (6) HLD (hyperlipidemia) (7) Carotid stenosis, right (8) Peripheral arterial disease (9) Dementia Assessment/Plan neuro checks BP management-continue home meds and PRN Clonidine right carotid stenosis, needs surgery appreciate Dr. Anna's input, plans surgery for today-surgery postponed from yesterday due to trauma schedule continue with Plavix, statins Continue Tegretol Seizure precautions DVT prophylaxis with heparin. NPO going to OR today Labs reviewed, stable D/W RN D/W Dr. Brewer D/W pt This patient was seen by myself and Dr. Brewer, this note is written on his behalf Problem Qualifiers (1) Syncope: Qualified Code: R55 - Syncope, unspecified syncope type (2) Hypothyroidism: Qualified Code: E03.9 - Hypothyroidism, unspecified type (3) HTN (hypertension): Qualified Code: I10 - Essential hypertension (4) HLD (hyperlipidemia): Qualified Code: E78.5 - Hyperlipidemia, unspecified hyperlipidemia type (5) Dementia: Qualified Code: F03.90 - Dementia without behavioral disturbance, unspecified dementia type Delaney Crump Aug 22, 2016 10:27
[2016-08-22] MEDS ORDERED: LACTATED RINGER'S 1000 ML INJ 1,000 ML IV ONE (12:00)
[2016-08-22] MEDS ORDERED: PHENYLEPH/NS 1000 MCG/10 ML SYR IV ONE (12:00)
[2016-08-22] MEDS ORDERED: PROPOFOL 200 MG/20 ML AMP IV ONE (12:00)
[2016-08-22] MEDS ORDERED: [UNRECOGNIZED DRUG - OTHER] IV ONE (12:00)
[2016-08-22] MEDS: HEPARIN SODIUM - SQ 10,000 UNITS/ML VIAL SQ SCH ×3 (12:00→21:27)
[2016-08-22] MEDS ORDERED: NITROGLYCERIN 1000 MCG/5 ML VIAL IV ONE (12:00)
[2016-08-22] MEDS ORDERED: HEPARIN SODIUM - IV 10,000 UNITS/10 ML VIAL ONE (13:26)
[2016-08-22] MEDS ORDERED: PROTAMINE SULFATE 50 MG/5 ML VIAL ONE (13:27)
[2016-08-22] MEDS ORDERED: LIDOCAINE HCL 1% 50 ML VIAL ONE (13:27)
[2016-08-22] MEDS ORDERED: ACETAMINOPHEN 1000 MG/100 ML VIAL IV ONE (14:00)
[2016-08-22] MEDS ORDERED: SUGAMMADEX SODIUM 200 MG/2 ML VIAL IV PUSH ONE ×2 (14:00)
[2016-08-22] MEDS ORDERED: *morphine SULFATE 8 MG/ML PERIprocedure ONLY ONE ×3 (17:44→19:28)
[2016-08-22] MEDS ORDERED: DO NOT ADM ANY ANTICOAGULANT DRUGS XX PRN (18:15)
[2016-08-22] MEDS: SODIUM CHLOR 0.9% 1000 ML INJ 1,000 ML IV SCH (19:45)
[2016-08-22] MEDS: ATORVASTATIN 20 MG TAB PO SCH (21:27)
[2016-08-22] MEDS: MONTELUKAST SODIUM 10 MG TAB PO SCH (21:27)
[2016-08-22] MEDS ORDERED: oxyCODONE/ACETAMINOPHEN 5 MG/325 MG TAB PO PRN (22:00)
[2016-08-22] MEDS ORDERED: MORPHINE SULFATE 4 MG/ML INJ IV PRN (22:00)
[2016-08-23] VITALS (11 sets, daily range): BP systolic 105–155; BP diastolic 54–71; PULSE 64–94; RESP 14–21; TEMP 98.2–98.9; O2SAT 93–100
[2016-08-23 04:54] LABS: AUTOMATED NEUTROPHIL # 7.8 TH/MM3 (1.8-7.7); BASOPHIL # 0.1 TH/MM3 (0-0.2); BASOPHIL % 0.5 % (0.0-2.0); EOSINOPHIL # 0.4 TH/MM3 (0-0.4); EOSINOPHIL % 2.9 % (0.0-4.0); HEMATOCRIT 30.9 % (39.0-51.0); LYMPH % 14.9 % (9.0-44.0); LYMPHOCYTE # 1.8 TH/MM3 (1.0-4.8); MEAN CELL VOLUME 90.9 FL (80.0-100.0); MEAN CORPUSCULAR HEMOGLOBIN 32.2 PG (27.0-34.0); MEAN CORPUSCULAR HGB CONC 35.4 % (32.0-36.0); MONO % 18.6 % (0.0-8.0); NEUT % 63.1 % (16.0-70.0); PLATELET COUNT 235 TH/MM3 (150-450); RED CELL DISTRIBUTION WIDTH 13.5 % (11.6-17.2); WHITE BLOOD COUNT 12.3 TH/MM3 (4.0-11.0)
[2016-08-23 05:06] LABS: HEMO FLAGS AUTO DIFF
[2016-08-23 05:07] LABS: BICARBONATE 23.8 MEQ/L (21.0-32.0)
[2016-08-23] MEDS: LEVOTHYROXINE SODIUM 50 MCG TAB PO SCH (06:00)
[2016-08-23 06:38] LABS: BANDS 8 % (0-6); BASOPHILS 1 % (0-2); EOSINOPHILS 1 % (0-4); NEUTROPHIL # MANUAL DIFF 8.6 TH/MM3 (1.8-7.7); POLYS (SEG NEUTROPHILS) 62 % (16-70); WBC DIFF SAMPLE 100
[2016-08-23 06:40] LABS: PLATELET ESTIMATE SMEAR NORMAL (NORMAL); PLATELET MORPHOLOGY NORMAL (NORMAL)
[2016-08-23 06:44] LABS: SCAN/DIFF FINAL DIFF MANUAL
[2016-08-23] MEDS: CLOPIDOGREL 75 MG TAB PO SCH (08:50)
[2016-08-23] MEDS: levETIRAcetam 500 MG TAB PO SCH ×3 (08:55→17:29)
[2016-08-23] MEDS: PROPRANOLOL HCL 10 MG TAB PO SCH ×2 (08:55→20:31)
[2016-08-23] MEDS: SODIUM CHLORIDE 0.9% FLUSH 5 ML FLUSH FLUSH SCH ×2 (08:55→21:00)
[2016-08-23] MEDS: FLUTICASONE 100 MCG/VILANTEROL 25 MCG INHALER INH SCH (08:55)
[2016-08-23] MEDS: carBAMazepine 200 MG TAB PO SCH ×2 (08:55→20:31)
[2016-08-23] MEDS: DOCUSATE SODIUM 100 MG CAP PO SCH (08:55)
[2016-08-23] MEDS: SODIUM CHLOR 0.9% 1000 ML INJ 1,000 ML IV SCH ×2 (09:14→20:31)
--- NOTE | 2016-08-23 15:29 | HHI.PR ---
Subjective Subjective Remarks S/P right CEA 08/22/2016 tolerated procedure well BP was elevated, was on Cardene gtt, now off since 945am no dizziness no syncopal episodes no cp no sob no acute changes overnight appetite fair Review of Systems Constitutional Constitutional Remarks 12 point review of systems completed, negative except as noted above Neurologic Neurologic: Lightheaded, Dizziness (2 over the past 24 hours) Psychiatric Psychiatric: Normal Mood Vitals/Results Intake & Output 08/22/16 08/22/16 08/23/16 15:00 23:00 07:00 Intake Total 2602 ml 693 ml Output Total 835 ml 580 ml Balance 1767 ml 113 ml Intake Oral 75 ml 75 ml IV Total 527 ml 618 ml Other 2000 ml Output Urine Total 600 ml 550 ml Drainage Total 85 ml 30 ml Estimated Blood Loss 150 ml # Bowel Movements 0 0 Vital Signs Vital Signs Date Time Temp Pulse Resp B/P Pulse Ox O2 Delivery O2 Flow Rate FiO2 08/23/16 12:11 98.2 67 16 143/65 96 08/23/16 12:11 67 08/23/16 10:00 69 08/23/16 08:00 Nasal Cannula 3.00 21 08/23/16 08:00 98.2 68 17 123/59 98 Arterial Line Manual Cuff/Auscultation 08/23/16 08:00 66 08/23/16 06:00 70 08/23/16 04:00 64 08/23/16 04:00 98.5 64 14 112/55 100 08/23/16 02:00 72 08/23/16 00:00 98.2 72 19 147/67 100 08/23/16 00:00 72 08/22/16 22:00 76 08/22/16 21:00 98.0 88 16 160/56 100 08/22/16 21:00 97 Nasal Cannula 3.00 08/22/16 21:00 97 Nasal Cannula 3.00 08/22/16 20:30 76 14 139/47 94 08/22/16 20:15 97.7 76 14 146/47 95 Nasal Cannula 3 139/65 08/22/16 20:00 88 15 187/58 99 Nasal Cannula 3 162/84 08/22/16 19:45 68 14 133/45 95 Nasal Cannula 3 124/62 08/22/16 19:30 75 12 172/53 98 Nasal Cannula 3 156/69 3/20/17 19:15 79 15 121/58 94 Nasal Cannula 3 08/22/16 19:05 126/31 08/22/16 19:00 75 17 131/62 95 Nasal Cannula 3 08/22/16 18:50 81 16 136/59 98 08/22/16 18:45 79 15 143/66 97 Nasal Cannula 3 08/22/16 18:30 80 15 176/60 98 Nasal Cannula 3 08/22/16 18:15 83 17 164/77 98 Nasal Cannula 3 08/22/16 18:05 172/40 08/22/16 18:00 73 15 152/69 98 Nasal Cannula 3 08/22/16 17:50 124/31 08/22/16 17:25 97.4 79 14 147/49 96 Nasal Cannula 3 138/71 CBC/BMP: 08/23/16 0420 08/23/16 0420 Lab Results Laboratory Tests Test 08/23/16 04:20 White Blood Count 12.3 TH/MM3 Red Blood Count 3.40 MIL/MM3 Hemoglobin 10.9 GM/DL Hematocrit 30.9 % Mean Corpuscular Volume 90.9 FL Mean Corpuscular Hemoglobin 32.2 PG Mean Corpuscular Hemoglobin 35.4 % Concent Red Cell Distribution Width 13.5 % Platelet Count 235 TH/MM3 Mean Platelet Volume 7.6 FL Neutrophils (%) (Auto) 63.1 % Lymphocytes (%) (Auto) 14.9 % Monocytes (%) (Auto) 18.6 % Eosinophils (%) (Auto) 2.9 % Basophils (%) (Auto) 0.5 % Neutrophils # (Auto) 7.8 TH/MM3 Lymphocytes # (Auto) 1.8 TH/MM3 Monocytes # (Auto) 2.3 TH/MM3 Eosinophils # (Auto) 0.4 TH/MM3 Basophils # (Auto) 0.1 TH/MM3 CBC Comment AUTO DIFF Differential Total Cells 100 Counted Neutrophils % (Manual) 62 % Band Neutrophils % 8 % Lymphocytes % 16 % Monocytes % 12 % Eosinophils % 1 % Basophils % 1 % Neutrophils # (Manual) 8.6 TH/MM3 Differential Comment FINAL DIFF MANUAL Platelet Estimate NORMAL Platelet Morphology Comment NORMAL Acanthocytes Sodium Level 137 MEQ/L Potassium Level 4.0 MEQ/L Chloride Level 105 MEQ/L Carbon Dioxide Level 23.8 MEQ/L Anion Gap 8 MEQ/L Blood Urea Nitrogen 12 MG/DL Creatinine 0.64 MG/DL Estimat Glomerular Filtration 119 ML/MIN Rate Random Glucose 105 MG/DL Calcium Level 8.2 MG/DL Physical Exam General General Appearance: Well Developed, Well Nourished, Comfortable Eyes Eye Exam: Pupils Equal, Pupils Reactive Ears & Nose Ears & Nose Exam: Nasal Mucosa [place] Throat Throat Exam: Oral Mucosa [place] & Moist Neck Neck Exam: Neck Supple, Trachea Midline Neck Remarks right neck incision/dressing intact Pulmonary Resp Exam: Clear Bilaterally, Breath Sounds Equal, No Distress Cardiology CV Exam: Regular Gastrointestinal/Abdomen GI Exam: Soft, Non-Tender, Bowel Sounds Present, Non-Distended Musculoskeletal MS Exam: Joints Intact, Good Strength Integumentary Skin Exam: Warm, Dry, Intact Extremeties Extremities Exam: No Edema Neurologic Neuro Exam: Alert, Awake, Oriented, Speech Clear, Moving All Extremities, No Focal Deficits Psychiatric Psych Exam: Appropriate Responses VTE Prophylaxis VTE Prophylaxis Meds: Heparin Assessment/Plan Problem List: (1) Syncope (2) Seizure disorder (3) Hypothyroidism (4) Hx-TIA (transient ischemic attack) (5) HTN (hypertension) (6) HLD (hyperlipidemia) (7) Carotid stenosis, right (8) Peripheral arterial disease (9) Dementia (10) right carotid endarectomy Assessment/Plan neuro checks BP management-continue home meds and PRN Clonidine right carotid stenosis, needs surgery appreciate Dr. Anna's input S/P right CEA 08/22 post op care control BP continue with Plavix, statins Continue Tegretol Seizure precautions DVT prophylaxis with heparin. Resume PT ok to transfer CM to arrange C with PT D/W RN D/W Dr. Brewer D/W pt This patient was seen by myself and Dr. Brewer, this note is written on his behalf Problem Qualifiers (1) Syncope: Qualified Code: R55 - Syncope, unspecified syncope type (2) Hypothyroidism: Qualified Code: E03.9 - Hypothyroidism, unspecified type (3) HTN (hypertension): Qualified Code: I10 - Essential hypertension (4) HLD (hyperlipidemia): Qualified Code: E78.5 - Hyperlipidemia, unspecified hyperlipidemia type (5) Dementia: Qualified Code: F03.90 - Dementia without behavioral disturbance, unspecified dementia type Delaney Crump Aug 23, 2016 15:29
--- NOTE | 2016-08-23 15:30 | HHI.FF ---
Face to Face Verification Diagnosis: (1) Hx-TIA (transient ischemic attack) (2) Carotid artery disease (3) Arteriosclerotic heart disease (ASHD) Physical Therapy Order: Evaluate and Treat Home Health Nursing Order: Medical education Nursing assessment with vital signs I have seen patient Manish Lucas on 08/23/16. My clinical findings support the need for the requested home health care services because: Deconditioned w/ increased weakness Limited ability to care for self Impaired cognition/judgement I certify that my clinical findings support that this patient is homebound because: Post-op weakness Impaired cognitive ability/safety Need for psychosocial assistance Delaney Crump Aug 23, 2016 15:30
--- NOTE | 2016-08-23 17:52 | PD.CAR.PN ---
CVT Progress Note Subjective/Hospital Course: My established patient Will see him today Thanks J Patient with tight right carotid stenosis and repeated TIAs. Patient is of advanced age and clearly there is some issues to consider regarding the going ahead with surgery. I've discussed this case with Dr. Lon Greene for interventional radiology and the patient is according to him a poor candidate for the same due to the nature of his black heterogeneous plaque and possibility this might embolized upward. I fully agree with his assessment. I've discussed this with patient at length and he'll be tentatively scheduled for surgery Monday He is a relatively high risk despite the good echocardiogram due to advanced age and other comorbidities but that this point I do not believe that she should be denied surgery based on these factors For right carotid endarterectomy Monday. We will continue Plavix prior and through the surgery and not stop it. 08/20/16 Patient still had 2 episodes of lightheadedness while here No lateralization Remains neurologically intact with slight speech deficit and the dysphasia. I discussed at length the risks and benefits with the patient and his caregiver. Understanding the risk at this higher range but also understanding the risk of stroke without surgery we will proceed with carotid endarterectomy tomorrow 08/21/16 Patient scheduled for RICAE today. Dr Early's opinion and expert consult greatly appreciated. Due to trauma load, my schedule and the OR schedule was overloaded. Surgery postponed till Monday a.m. Discussed with the patient and he is agreeable 08/23/16 Status post carotid endarterectomy Awake alert oriented 3 Neurologically fully intact Incision clean and dry with bilateral good carotid pulses Plan DC Stefan-Gomez DC A-line DC Guille Transfer patient to floor From surgical point as the blood pressures controlled patient can be discharged any time Objective: Vital Signs Date Time Temp Pulse Resp B/P Pulse Ox O2 Delivery O2 Flow Rate FiO2 08/23/16 16:15 78 08/23/16 16:15 98.9 78 19 105/54 93 08/23/16 14:00 71 08/23/16 12:11 98.2 67 16 143/65 96 08/23/16 12:11 67 08/23/16 12:00 95 Room Air 08/23/16 10:00 69 08/23/16 08:00 Nasal Cannula 3.00 21 08/23/16 08:00 98.2 68 17 123/59 98 Arterial Line Manual Cuff/Auscultation 08/23/16 08:00 66 08/23/16 06:00 70 08/23/16 04:00 64 08/23/16 04:00 98.5 64 14 112/55 100 08/23/16 02:00 72 08/23/16 00:00 98.2 72 19 147/67 100 08/23/16 00:00 72 08/22/16 22:00 76 08/22/16 21:00 98.0 88 16 160/56 100 08/22/16 21:00 97 Nasal Cannula 3.00 08/22/16 21:00 97 Nasal Cannula 3.00 08/22/16 20:30 76 14 139/47 94 08/22/16 20:15 97.7 76 14 146/47 95 Nasal Cannula 3 139/65 08/22/16 20:00 88 15 187/58 99 Nasal Cannula 3 162/84 08/22/16 19:45 68 14 133/45 95 Nasal Cannula 3 124/62 08/22/16 19:30 75 12 172/53 98 Nasal Cannula 3 156/69 08/22/16 19:15 79 15 121/58 94 Nasal Cannula 3 08/22/16 19:05 126/31 08/22/16 19:00 75 17 131/62 95 Nasal Cannula 3 08/22/16 18:50 81 16 136/59 98 08/22/16 18:45 79 15 143/66 97 Nasal Cannula 3 08/22/16 18:30 80 15 176/60 98 Nasal Cannula 3 08/22/16 18:15 83 17 164/77 98 Nasal Cannula 3 08/22/16 18:05 172/40 08/22/16 18:00 73 15 152/69 98 Nasal Cannula 3 08/22/16 17:50 124/31 Result Diagram: 08/23/16 0420 08/23/16 0420 Devorah Ferguson MD Aug 23, 2016 17:52
[2016-08-23] MEDS: ATORVASTATIN 20 MG TAB PO SCH (20:31)
[2016-08-23] MEDS: MONTELUKAST SODIUM 10 MG TAB PO SCH (20:31)
[2016-08-24] VITALS: BP 164/73; PULSE 76; RESP 20; TEMP 98.9; O2SAT 94
[2016-08-24 00:26] VITALS: PULSE 80
[2016-08-24 04:00] VITALS: BP 166/77; PULSE 78; RESP 18; TEMP 98.9; O2SAT 94
[2016-08-24 06:10] VITALS: BP 172/81
[2016-08-24] MEDS: cloNIDine HCL 0.1 MG TAB PO PRN (06:13)
[2016-08-24] MEDS: LEVOTHYROXINE SODIUM 50 MCG TAB PO SCH (06:13)
--- NOTE | 2016-08-24 07:04 | MP ---
cc: ARIELLA ALVAREZ MD DATE OF SURGERY 08/22/2016 PREOPERATIVE DIAGNOSIS Tight right internal carotid artery stenosis. Multiple TIAs. POSTOPERATIVE DIAGNOSIS Tight right internal carotid artery stenosis. Multiple TIAs. OPERATIVE PROCEDURE Right carotid artery endarterectomy. SURGEON MD Phyllis ANESTHESIA General. ESTIMATED BLOOD LOSS 150 cc INDICATION FOR PROCEDURE This 85-year-old gentleman sustained multiple TIAs in the past, was found to have tight carotid artery stenosis, obtained second opinion from Dr. Early and we both agreed the patient should have the surgery. The patient was prepped and draped in the usual fashion. A right donny-sternocleidomastoid incision was made, deepened down through the platysma, to the carotid sheath. Common carotid, internal, external carotid arteries then are sharply dissected with Metzenbaum scissors and umbilical tapes with lamellar retractors placed around each respectively. The patient is given 5000 units of heparin. The hypoglossal nerve is carefully identified and preserved. The facial vein is ligated and Iron Steersman retractor positioned. The patient has a long stenosis in the internal carotid artery reaching about 1 inch above the bifurcation. The clamps are now applied, bulldog to internal carotid artery and the DeBakey angled clamp to common carotid artery while the external carotid artery is cinched down with a Collin. The vessel is opened longitudinally with Maldonado scissors. There is a crumbly hard plaque present in the vessel which indeed reaches up to about an inch over the bifurcation, maybe a little higher. The Mccool shunt is immediately positioned and blood flow reestablished. The plaque is observed. It is about 80% stenosis. Parts of it are crumbly and hard while the part that is up in the internal carotid artery is sort of soft, undermined with some grayish-green liquefied material underneath. This plaque is now dissected in the media plane with a Lisle dissector and then removed. The surface of the vessel is now carefully cleaned with heparinized saline and Leksells and small debris is removed. Distally the plaque peeled off nicely to the intima and proximally it is trimmed down. The patient has a large vessel and in the face of his age the decision is made to close this primarily. The vessel is now closed primarily with running 6-0 Prolene and prior to completion the Mccool shunt is removed, then closure completed. Blood flow is reestablished now in all the usual order and fashion preventing distal embolization to the brain. The area irrigated with saline and meticulous hemostasis obtained. A RUBEN drain is placed. The incision is closed in layers with 2-0 Vicryl and 4-0 Monocryl. The patient tolerated the procedure well. At the end of the procedure, the patient is awoken and is fully neurologically intact. Ariella HERRERA/DEBRA /7:28 PM /6:45 AM
[2016-08-24 08:00] VITALS: BP 165/87; PULSE 73; RESP 20; TEMP 97.9; O2SAT 99
[2016-08-24] MEDS: CLOPIDOGREL 75 MG TAB PO SCH (09:42)
[2016-08-24] MEDS: PROPRANOLOL HCL 10 MG TAB PO SCH (09:42)
[2016-08-24] MEDS: carBAMazepine 200 MG TAB PO SCH (09:42)
[2016-08-24] MEDS: levETIRAcetam 500 MG TAB PO SCH ×2 (09:42→13:00)
[2016-08-24] MEDS: DOCUSATE SODIUM 100 MG CAP PO SCH (09:43)
[2016-08-24] MEDS: SODIUM CHLORIDE 0.9% FLUSH 5 ML FLUSH FLUSH SCH (09:45)
[2016-08-24] MEDS: FLUTICASONE 100 MCG/VILANTEROL 25 MCG INHALER INH SCH (09:46)
--- NOTE | 2016-08-24 11:38 | HHI.PR ---
Subjective Subjective Remarks S/P right CEA 08/22/2016 BP fair, had Clonidine earlier no dizziness no syncopal episodes no cp no sob no acute changes overnight Review of Systems Constitutional Constitutional Remarks 12 point review of systems completed, negative except as noted above Neurologic Neurologic: Lightheaded, Dizziness (2 over the past 24 hours) Psychiatric Psychiatric: Normal Mood Vitals/Results Intake & Output 08/23/16 08/23/16 08/24/16 15:00 23:00 07:00 Intake Total 1714 ml Output Total 345 ml 700 ml Balance 1369 ml -700 ml Intake Oral 475 ml Oral Supplement 950 ml IV Total 289 ml Output Urine Total 325 ml 700 ml Drainage Total 20 ml # Voids 2 # Bowel Movements 0 0 Vital Signs Vital Signs Date Time Temp Pulse Resp B/P Pulse Ox O2 Delivery O2 Flow Rate FiO2 08/24/16 08:00 97.9 73 20 165/87 99 08/24/16 07:15 Room Air 08/24/16 06:10 172/81 08/24/16 04:00 98.9 78 18 166/77 94 08/24/16 00:26 80 08/24/16 00:00 98.9 76 20 164/73 94 08/23/16 23:59 Room Air 08/23/16 20:00 94 08/23/16 20:00 98.6 94 21 155/71 94 08/23/16 20:00 93 Room Air 08/23/16 18:13 81 08/23/16 16:15 78 08/23/16 16:15 98.9 78 19 105/54 93 08/23/16 14:00 71 08/23/16 12:11 98.2 67 16 143/65 96 08/23/16 12:11 67 08/23/16 12:00 95 Room Air CBC/BMP: 08/23/16 0420 08/23/16 0420 Physical Exam General General Appearance: Well Developed, Well Nourished, Comfortable Eyes Eye Exam: Pupils Equal, Pupils Reactive Ears & Nose Ears & Nose Exam: Nasal Mucosa [place] Throat Throat Exam: Oral Mucosa [place] & Moist Neck Neck Exam: Neck Supple, Trachea Midline Neck Remarks right neck incision/dressing intact Pulmonary Resp Exam: Clear Bilaterally, Breath Sounds Equal, No Distress Cardiology CV Exam: Regular Gastrointestinal/Abdomen GI Exam: Soft, Non-Tender, Bowel Sounds Present, Non-Distended Musculoskeletal MS Exam: Joints Intact, Good Strength Integumentary Skin Exam: Warm, Dry, Intact Extremeties Extremities Exam: No Edema Neurologic Neuro Exam: Alert, Awake, Oriented, Speech Clear, Moving All Extremities, No Focal Deficits Psychiatric Psych Exam: Appropriate Responses VTE Prophylaxis VTE Prophylaxis Meds: Heparin Assessment/Plan Problem List: (1) Syncope (2) Seizure disorder (3) Hypothyroidism (4) Hx-TIA (transient ischemic attack) (5) HTN (hypertension) (6) HLD (hyperlipidemia) (7) Carotid stenosis, right (8) Peripheral arterial disease (9) Dementia (10) right carotid endarectomy Assessment/Plan neuro checks BP management-continue home meds and PRN Clonidine right carotid stenosis, needs surgery appreciate Dr. Anna's input S/P right CEA 08/22 post op care control BP cleared for discharge continue with Plavix, statins Continue Tegretol Seizure precautions DVT prophylaxis with heparin. Resume PT CM to arrange [facility] Discharge to [facility] F/U vascular surgery 2 weeks F/U PCP Diet-heart healthy Activity-as tolerated D/W RN D/W Dr. Brewer D/W pt This patient was seen by myself and Dr. Brewer, this note is written on his behalf Discharge Minutes: 40 Problem Qualifiers (1) Syncope: Qualified Code: R55 - Syncope, unspecified syncope type (2) Hypothyroidism: Qualified Code: E03.9 - Hypothyroidism, unspecified type (3) HTN (hypertension): Qualified Code: I10 - Essential hypertension (4) HLD (hyperlipidemia): Qualified Code: E78.5 - Hyperlipidemia, unspecified hyperlipidemia type (5) Dementia: Qualified Code: F03.90 - Dementia without behavioral disturbance, unspecified dementia type Delaney Crump Aug 24, 2016 11:38
[2016-08-24 12:00] VITALS: BP 165/72; PULSE 71; RESP 20; TEMP 98.3; O2SAT 97
--- NOTE | 2016-08-24 13:41 | HHI.FF ---
Face to Face Verification Diagnosis: (1) Hx-TIA (transient ischemic attack) (2) Carotid artery disease Physical Therapy Order: Evaluate and Treat Home Health Nursing Order: Medical education Signs/symptoms of disease process Nursing assessment with vital signs Electrical Calibrator Order: To Evaluate: Support services I have seen patient Manish Lucas on 08/24/16. My clinical findings support the need for the requested home health care services because: Deconditioned w/ increased weakness Need for psychosocial assistance Impaired cognition/judgement High risk of falls I certify that my clinical findings support that this patient is homebound because: Impaired cognitive ability/safety Need for psychosocial assistance Delaney Crump Aug 24, 2016 13:41
[2016-08-24] MEDS ORDERED: OXYC1TAB63 PO (13:55)
[2016-08-24] MEDS ORDERED: LISINOPRIL 5 MG TAB PO SCH (14:00)
--- NOTE | 2016-09-05 20:48 | HHI.DS ---
Discharge Summary Admission Date Aug 19, 2016 at 21:31 Discharge Date: Aug 24, 2016 Admitting Diagnosis Syncope (1) Carotid stenosis, right (2) right carotid endarectomy (3) Carotid artery disease (4) HTN (hypertension) (5) COPD (chronic obstructive pulmonary disease) (6) Seizure disorder (7) Hypothyroidism (8) Dementia (9) Hx-TIA (transient ischemic attack) Procedures S/P right CEA 08/22/2016 Hospital Course This is a pleasant 85-year-old white male who experienced a syncopal episode while sitting in his wheelchair. He currently is at an assisted living facility and has been in his usual state of health until this acute event. The patient was sitting at the table to eat dinner with his , according to the record, when he felt lightheaded and weak. He remembers pushing himself away from the table due to his symptoms and it was noted that he did faint. There was no trauma involved. He did not fall out of the chair. According to the record, he was only out for a few seconds and then came back to. He did become very nauseated and vomited but that has passed since the syncopal episode. The patient does note some fatigue and generalized weakness over the past few weeks but other than that, no acute chest pain, shortness of breath. No headaches. No nausea, vomiting, diarrhea or constipation before this event. No acute weight gain or weight loss. MEDICAL HISTORY Currently the patient is alert. He is able to answer simple questions. He is a fair historian. MEDICAL HISTORY According to the record and patient - 1. Asthma. 2. Arthritis. 3. History of prostate cancer. 4. Cardiovascular disease. 5. Hyperlipidemia. 6. Chest pain. 7. COPD. 8. Previous TIAs. 9. Hard of hearing. 10. Reflux. 11. Urinary incontinence. 12. Hypertension. 13. Pelvic fractures. 14. Hip fractures. 15. History of seizures. 16. History of vertigo. PAST SURGICAL HISTORY 1. Previous PEG tube placement which has now been removed. 2. Appendectomy as a child. 3. Bilateral hip hardware. 4. Left ear cancer surgery. 5. Bilateral cataracts. 6. Prostatectomy. 7. Tonsillectomy. ALLERGIES MDRO MULTI-RESISTANT DRUG ORGANISMS. ESBL IN HIS URINE. MRSA SCREEN WAS NEGATIVE TWICE IN 2014. AUGMENTIN. PRIMIDONE. SULFA. IMIPRAMINE. SOCIAL HISTORY Currently the patient is living in the assisted living. He denies any tobacco, alcohol or illicit drug use. He is and his is still with him. REPORTED MEDICATIONS 1. Vitamin B6. 2. Ventolin. 3. Propranolol. 4. Multivitamins. 5. Bio-Statin powder. 6. Myrbetriq. 7. Montelukast. 8. Acetaminophen. 9. Levothyroxine. 10. Levetiracetam. 11. Surfak. 12. Plavix. 13. Calcium. 14. Breo Ellipta. 15. Carbamazepine. 16. Zinc oxide. 17. Atorvastatin. 18. Ammonium lactate. 19. Ferrous sulfate. 20. Alendronate. REVIEW OF SYSTEMS Some limitations but the patient can answer simple questions without any confusion. Currently denies any syncope. No nausea, no vomiting, although these were some of his symptoms when he first arrived. Incontinence. Other systems negative or unremarkable. DIAGNOSTIC DATA WBC count originally 11.5 on admission, now 14.8; RBC 4.05, hemoglobin 13.1, platelet count 266, monocyte 11.3, neutrophils auto 71.9 on admission . PT/INR 1. Chemistry - Sodium 134, potassium 4.1, chloride 100, CO2 22.5, amnion gap 12, BUN 13, creatinine 0.82, random glucose was 110. Troponin x 3 less than 0.02. BMP is 133, albumin 3.9, total protein 4.6. Urine is yellow, clear, pH is 5.5, specific gravity 1.016, trace of protein, negative for glucose, ketones, occult blood, nitrites bilirubin and leukocyte esterase. A few urine mucus. Culture is not indicated. IMAGING STUDIES His chest x-ray with no acute disease. CT of the head shows no significant changes to occur. Carotid ultrasound - Elevated ICA/CCA ratio on the right, moderate severity. Noncalcified plaque indicating possible moderate to high-grade internal carotid artery stenosis. Recommend TCA of the carotid for further evaluation. (1) Syncope (2) Seizure disorder (3) Hypothyroidism (4) Hx-TIA (transient ischemic attack) (5) HTN (hypertension) (6) HLD (hyperlipidemia) (7) Carotid stenosis, right (8) Peripheral arterial disease (9) Dementia (10) right carotid endarectomy During the course of the hospitalization, the following took place: Patient admitted, neuro checks ordered CTA of neck ordered. BP management-continued home meds and PRN Clonidine added was positive for right carotid stenosis, needed surgery Vascular surgery evaluated. CEA recommended appreciate Dr. Anna's input S/P right CEA 08/22 post op care control BP was done with Cardene post op in the ICU Neuro checks were unchanged, stable. Pt. did well post op, was OOB with PT was eating well. cleared for discharge by vascular surgery. continued with Plavix, statins Continue Tegretol for seizure disorder. Seizure precautions DVT prophylaxis with heparin. CM consult to arrange [facility] Discharged to [facility] with [facility] F/U vascular surgery 2 weeks F/U PCP Diet-heart healthy Activity-as tolerated Pt Condition on Discharge: Stable Discharge Disposition: [facility] with [facility] Discharge Instructions DIET: Follow Instructions for: Heart Healthy Diet Activities you can perform: Weight Bearing as [place] Follow up Referrals: PCP Follow-up SNF/[facility]/ with [facility] Vascular Surgery - 2 Weeks with Devorah Ferguson MD New Medications: Oxycodone-Acetaminophen (Oxycodone-Acetaminophen) 5-325 mg Tab 1 TAB PO q6h PRN PAIN SCALE 1 TO 5 #30 TAB Continued Medications: Acetaminophen (Acetaminophen) 325 Mg Tab 325 MG PO Q4-6H PRN PAIN SCALE 1 TO 4 #20 Ref 0 TAB Albuterol 18 GM Inh (Ventolin Hfa 18 GM Inh) 90 Mcg/Act Aer 2 PUFF INH Q6H PRN SHORTNESS OF BREATH #1 Ref 0 INHALER Alendronate (Alendronate) 70 Mg Tab 70 MG PO Q7D Osteporosis Treatment #4 Ref 0 TAB Atorvastatin (Atorvastatin) 20 Mg Tab 20 MG PO HS Cholesterol Management #30 Ref 0 TAB Calcium Carbonate-Vitamin D (Calcium 600 + D) 600-400 Mg-Unit Tab 1 TAB PO DAILY TAB Carbamazepine (Carbamazepine) 200 Mg Tab 200 MG PO BID #60 Ref 0 TAB Clopidogrel (Clopidogrel) 75 Mg Tab 75 MG PO DAILY Blood Clot Prevention #30 Ref 0 TAB Docusate Sodium (Docusate Sodium) 100 Mg Cap 100 MG PO DAILY CONSTIPATION #60 Ref 0 CAP Ferrous Sulfate (Ferrous Sulfate) 325 Mg Tab 325 MG PO DAILY Nutritional Supplement #30 Ref 0 TAB Fluticasone-Vilanterol Inh (Breo Ellipta Inh) 100-25 Mcg/Act Inh 1 PUFF INH DAILY Use daily at the same time. #1 Ref 0 INHALER Lactic Acid (Ammonium Lactate) (Ammonium Lactate) 12% Lotn 1 APPLIC TOPICAL BID #225 Ref 0 ML Levetiracetam (Levetiracetam) 500 Mg Tab 500 MG PO TID Control Seizures #60 Ref 0 TAB Levothyroxine (Levothyroxine) 50 Mcg Tab 50 MCG PO DAILY Thyroid #30 Ref 0 TAB Lisinopril (Lisinopril) 5 Mg Tab 5 MG PO DAILY #30 TAB Mirabegron (Myrbetriq) 50 Mg Tab 50 MG PO DAILY Urinary Symptom Managemen #30 Ref 0 TAB Montelukast (Montelukast) 10 Mg Tab 10 MG PO HS #30 Ref 0 TAB Multiple Vitamins W/ Minerals (Preservision-Lutein) 1 Cap 1 CAP PO DAILY Nutritional Supplement Ref 0 CAP Nystatin Powder (Bio-Statin Powder) 1 Pow Pow [id number] UNITS TOPICAL TID Propranolol (Propranolol) 10 Mg Tab 10 MG PO Q12HR #60 Ref 0 TAB Pyridoxine (Vitamin B-6) 50 Mg Tab 50 MG PO DAILY Nutritional Supplement #30 Ref 0 TAB Zinc Oxide (Topical) (Boudreauxs Butt Paste) 16 % Oin Discontinued Medications: Acetaminophen (Mapap) 500 Mg Cap 500 MG PO Q4-6H PRN PAIN Ref 0 CAP Albuterol 18 GM Inh (Ventolin Hfa 18 GM Inh) 90 Mcg/Act Aer 2 PUFF INH Q4H PRN SHORTNESS OF BREATH #1 Ref 0 INHALER Delaney CrumpP Sep 05, 2016 20:48
== END 2016-08-24 16:50 | DRG 39 ==
LOC: NEPE 17:56 → NEDA 20:54 → NEPHCDU 08-18 02:49 → OBSVTOIN 08-19 21:31 → HCIS 08-21 11:20 → NEPHCDU 08-21 11:35 → HCIS 08-21 18:39 → N03B 08-22 15:33 → HCPC 08-22 16:05 → N03B 08-22 16:38 → N03A 08-22 20:41 → N04B 08-24 00:05
PROVIDERS: ADMIT Specialist; ATTEND Specialist
PROC: 03CK0Z6 (ICD-10-PCS; principal; 2016-08-22 14:51)
DX: I65.21 Occlusion and stenosis of right carotid artery (principal); G62.9 Polyneuropathy, unspecified; F03.90 Unspecified dementia, unspecified severity, without behavioral disturbance, psychotic disturbance, mood disturbance, and anxiety; J44.9 Chronic obstructive pulmonary disease, unspecified; E86.0 Dehydration; I73.9 Peripheral vascular disease, unspecified; D72.829 Elevated white blood cell count, unspecified; I10 Essential (primary) hypertension; E78.5 Hyperlipidemia, unspecified; E03.9 Hypothyroidism, unspecified; G40.909 Epilepsy, unspecified, not intractable, without status epilepticus; J45.909 Unspecified asthma, uncomplicated; K21.9 Gastro-esophageal reflux disease without esophagitis; R32 Unspecified urinary incontinence; I45.10 Unspecified right bundle-branch block; D64.9 Anemia, unspecified; I25.10 Atherosclerotic heart disease of native coronary artery without angina pectoris; M19.90 Unspecified osteoarthritis, unspecified site; H91.90 Unspecified hearing loss, unspecified ear; Z85.46 Personal history of malignant neoplasm of prostate; Z86.73 Personal history of transient ischemic attack (TIA), and cerebral infarction without residual deficits; Z87.891 Personal history of nicotine dependence; Z88.1 Allergy status to other antibiotic agents; Z88.2 Allergy status to sulfonamides; Z96.643 Presence of artificial hip joint, bilateral
CPT/HCPCS: 70450; 70498; 71010; 80048; 80053; 80061; 81001; 83880; 84484; 85007; 85025; 85027; 85610; 85730; 86850; 86900; 86901; 88304; 88311; 93005; 93306; 93880; 94003; 94770; 96360; 96361; C9248; G0378; J0131; J1644; J2270; J2370; J2720; J3010; J7030; J7120; Q9967

== ENCOUNTER → 2016-12-26 | Day surgery (SDC) | payer MEDICARE ==
[~2016-12-26] MED LIST changes: +LACTATED RINGER'S 1000 ML INJ 1,000 ML ONE; -MAPA500C PO; +OXYC1TAB63 PO; +PROPOFOL 200 MG/20 ML AMP IV ONE
--- NOTE | 2016-12-26 10:41 | GIPROC ---
[facility] [address], [address] EGD WITH DILATION PROCEDURE REPORT EXAM DATE: 12/26/2016 PATIENT NAME: Manish Lucas MR#: [id number] BIRTHDATE: 1930 ATTENDING: Amy Faustin MD ORDER #: [id number] CHICKEN PICKER: STATUS: outpatient INDICATIONS: The patient is a 86 yr old male here for an EGD with dilation due to dysphagia PROCEDURE PERFORMED: EGD w/ biopsy EGD w/ dilation of esophagus via guidewire MEDICATIONS: None and Per Anesthesia. TOPICAL ANESTHETIC: none CONSENT: The patient understands the risks and benefits of the procedure and understands that these risks include, but are not limited to: sedation, allergic reaction, infection, perforation and/or bleeding. Alternative means of evaluation and treatment include, among others: physical exam, x-rays, and/or surgical intervention. The patient elects to proceed with this endoscopic procedure. medical equipment was checked for proper function. Hand hygiene and appropriate measures for infection prevention was taken. After the risks, benefits and alternatives of the procedure were thoroughly explained, Informed consent was verified, confirmed and timeout was successfully executed by the treatment team. The patient was anesthetized with topical anesthesia and the EG-[id number] ([id number]) and EC-[id number] ([id number]) endoscope was introduced through the mouth and advanced to the second portion of the duodenum. The instrument was slowly withdrawn as the mucosa was fully examined. Gastritis antrum-biopsy stricture upper esophagus--scope could not be passed, wire inserted than dilators 9, 10,11, 12 were inserted, scope was reintroduced able to pass in stomach.Dialtation using 12.8 Savary dialtor was done after stomach was examined gastritis antrum-biopsy esophagitis distal esophagus. Dilation was performed at proximal esophagus. DILATOR: SIZE(S): RESISTANCE: HEME: APPEARANCE: Dilator: Savary over guidewire Size(s): 9,10,11, 12, 12.8 COMMENT: Retroflexed views revealed a hiatal hernia ADVERSE EVENTS: There were no complications. IMPRESSIONS: 1. Gastritis antrum-biopsy stricture upper esophagus--scope could not be passed, wire inserted than dilators 9, 10,11, 12 were inserted, scope was reintroduced able to pass in stomach.Dialtation using 12.8 Savary dialtor was done after stomach was examined gastritis antrum-biopsy esophagitis distal esophagus 2. Retroflexed views revealed a hiatal hernia RECOMMENDATIONS: 1. Await biopsy results. Biopsy results will not be ready for 7-10 days. If you don't hear from us in two weeks, call our office for biopsy results. 2. Anti-reflux regimen 3. Continue PPI 4. Avoid NSAIDS 5. Restart anticoagulation in am ppi-bid carafate liquid REPEAT EXAM: EGD pending biopsy results Amy Faustin MD eSigned: Amy Faustin MD 12/26/2016 10:40 AM cc: Shikha Olmos [facility] Dina Ambrocio M.D. PATIENT NAME: Manish Lucas MR#: [id number]
== END | disposition home or self-care (01) ==
LOC: ESDC 07:45
PROVIDERS: ATTEND Internal Medicine Gastroenterology
DX: R13.10 Dysphagia, unspecified (principal); K29.70 Gastritis, unspecified, without bleeding; K22.2 Esophageal obstruction; K20.9 Esophagitis, unspecified; K44.9 Diaphragmatic hernia without obstruction or gangrene
CPT/HCPCS: 00740; 43239; 43248; 88305; 88312; J7120

== ENCOUNTER 2017-03-04 19:34 | Inpatient (IN) | payer MEDICARE ==
[~2017-03-04] VITALS: Ht 170.2 cm; Wt 71.2 kg
[~2017-03-04 19:34] MED LIST changes: -LACTATED RINGER'S 1000 ML INJ 1,000 ML ONE; -PROPOFOL 200 MG/20 ML AMP IV ONE
[2017-03-04 20:27] VITALS: BP 197/82; PULSE 74; RESP 16; TEMP 98.4; O2SAT 99
[2017-03-04] MEDS ORDERED: ACETAMINOPHEN 325 MG TAB PO ONE (21:00)
--- NOTE | 2017-03-04 21:25 | RADRPT ---
EXAM DATE/TIME: 03/04/2017 20:58 [facility] COMPARISON: No previous studies available for comparison. INDICATIONS : Left knee pain and swelling after fall. MEDICAL HISTORY : None. SURGICAL HISTORY : None. ENCOUNTER: Initial ACUITY: 1 day PAIN SCORE: 10/10 LOCATION: Left knee. FINDINGS: Is diffuse osteopenia. The medial tibial plateau has an abnormal appearance with depression and a th in vertical lucency in the lateral aspect of the medial plateau. There is moderate distention of the suprapatellar soft tissues without fat fluid level. CONCLUSION: Mildly depressed medial tibial plateau fracture. Manish Carrero MD on March 04, 2017 at 21:23 Board Certified Radiologist. This report was verified electronically.
--- NOTE | 2017-03-04 21:29 | RADRPT ---
EXAM DATE/TIME: 03/04/2017 21:07 [facility] COMPARISON: No previous studies available for comparison. INDICATIONS : Left elbow laceration after fall. MEDICAL HISTORY : None. SURGICAL HISTORY : None. ENCOUNTER: Initial ACUITY: 1 day PAIN SCORE: 10/10 LOCATION: Left elbow. FINDINGS: 4 view examination demonstrates the osseous structures about the elbow to be in normal alignment. No fracture seen. No evidence of elbow effusion. Angiocath in the antecubital fossa. Area of lacerat ion is superficial to the olecranon; no retained foreign body seen. CONCLUSION: No evidence of fracture or radiopaque foreign body. Manish Carrero MD on March 04, 2017 at 21:26 Board Certified Radiologist. This report was verified electronically.
--- NOTE | 2017-03-04 21:30 | RADRPT ---
EXAM DATE/TIME: 03/04/2017 21:13 [facility] COMPARISON: CT BRAIN W/O CONTRAST, August 17, 2016, 19:03. INDICATIONS : Trauma, fall. Hit left side of head on wall. RADIATION DOSE: 32.47 CTDIvol (mGy) MEDICAL HISTORY : Cerebrovascular disease. Seizures. Hypertension.Prostate cancer. Cardiovascular disease. SURGICAL HISTORY : None. ENCOUNTER: Initial ACUITY: 1 day PAIN SCALE: 0/10 LOCATION: cranial TECHNIQUE: Multiple contiguous axial images were obtained of the head. Using automated exposure control and adj ustment of the mA and/or kV according to patient size, radiation dose was kept as low as reasonably a chievable to obtain optimal diagnostic quality images. DICOM format image data is available electro nically for review and comparison. 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 No evidence of acute blood products, mass ef fect, or extra-axial fluid collections.. POSTERIOR FOSSA: The cerebellum and brainstem are intact. The 4th ventricle is midline. The cerebellopontine angle i s unremarkable. EXTRACRANIAL: The visualized portion of the orbits is intact. SKULL: The calvaria is intact. No evidence of skull fracture. CONCLUSION: No acute findings. Manish Carrero MD on March 04, 2017 at 21:27 Board Certified Radiologist. This report was verified electronically.
--- NOTE | 2017-03-04 21:35 | PD ---
HPI Chief Complaint: Fall Time Seen by Provider: 20:41 Travel History International Travel<30 days: No Contact w/Intl Traveler<30days: No Traveled to known affect area: No History of Present Illness HPI Patient is a 86 year old male who comes in after a fall this evening. He says he slipped in the bathroom and fell to the ground. He says he did hit his head , but denies any LOC. He says he hit his elbow and has pain when trying to stand on his left knee. He denies any back pain. He denies numbness or tingling in his extremities. He denies headache, dizziness, nausea or vomiting. PFSH Past Medical History Arthritis: Yes Asthma: Yes Autoimmune Disease: No Blood Disorders: No Anxiety: No Depression: No Heart Rhythm Problems: No Cancer: Yes (prostate cancer) Cardiac Catheterization: Yes (UNSURE) Cardiovascular Problems: Yes (HTN) High Cholesterol: Yes Chemotherapy: No Chest Pain: Yes Congestive Heart Failure: No COPD: Yes Cerebrovascular Accident: Yes (TIA) Diabetes: No Diminished Hearing: Yes Endocrine: No Gastrointestinal Disorders: Yes (reflux) GERD: Yes Glaucoma: No Genitourinary: Yes (urinary incontinence) Headaches: Yes Hepatitis: No Hiatal Hernia: No Hypertension: Yes Immune Disorder: No Implanted Vascular Access Dvce: Yes Kidney Stones: No Musculoskeletal: Yes (OK. HIP FX., PELVIC FX.) Neurologic: Yes (hx of seizures, lying flat will make him dizzy hx of vertigo ) Psychiatric: No Reproductive: No Respiratory: Yes (COPD ) Immunizations Current: Yes Migraines: No Myocardial Infarction: No Radiation Therapy: No Renal Failure: No Seizures: Yes Sickle Cell Disease: No Sleep Apnea: No Thyroid Disease: No Ulcer: No Tetanus Vaccination: Unknown Influenza Vaccination: Yes Past Surgical History Abdominal Surgery: Yes (peg tube placement november 2014, REMOVED) AICD: No Appendectomy: Yes ( CHILD) Arteriovenous Shunt: No Body Medical Devices: HARDWARE OK. 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) Endocrine Surgery: No Eye Surgery: Yes (ok cataract) Genitourinary Surgery: Yes (prostate cancer removal) Gynecologic Surgery: No Insulin Pump: No Joint Replacement: No Neurologic Surgery: No Oral Surgery: No Pacemaker: No Thoracic Surgery: No Tonsillectomy: Yes Other Surgery: Yes (PROSTATECTOMY 2000) Family History Family Myocardial Infarction: Yes (?FATHER AT 99 Y/O ) Social History Alcohol Use: No Tobacco Use: No Substance Use: No Allergies-Medications (Allergen,Severity, Reaction): Coded Allergies: amoxicillin (Unverified Allergy, Severe, Shortness of Breath, 01/17/17) clavulanic acid (Unverified Allergy, Severe, Shortness of Breath, 01/17/17) imipramine (Unverified Allergy, Severe, SEIZURE, 01/17/17) primidone (Unverified Allergy, Severe, SEIZURE, 01/17/17) Sulfa (Sulfonamide Antibiotics) (Unverified Allergy, Unknown, Rash, ) *MDRO Multi-Drug Resistant Organism (Unverified Adverse Reaction, Unknown , 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 MRSA PCR Screen negative 08/25/14 and 08/27/14. Reported Meds & Prescriptions Reported Meds & Active Scripts Active Oxycodone-Acetaminophen 5-325 mg Tab 1 Tab PO Q6H PRN Lisinopril 5 Mg Tab 5 Mg PO DAILY Reported Ventolin Hfa 18 GM Inh (Albuterol Sulfate) 90 Mcg/Act Aer 2 Puff INH TID PRN Prochlorperazine Maleate 10 Mg Tab 10 Mg PO TID PRN Preservision-Lutein (Multiple Vitamins W/ Minerals) 1 Cap 1 Cap PO DAILY Polyethylene Glycol 3350 Powder (Polyethylene Glycol) 17 Gram Pow 17 Gm PO DAILY Pantoprazole (Pantoprazole Sodium) 20 Mg Tab 20 Mg PO DAILY Nyata (Nystatin (Topical)) 100,000 Unit/Gram Pow Gabapentin 300 Mg Cap 300 Mg PO TID Ferrous Sulfate 325 Mg (65 Mg Iron) Tablet 325 Mg PO TIDPC Carbamazepine 200 Mg Tab 300 Mg PO BID Calcium 600 with Vitamin D (Calcium Carbonate-Cholecalciferol) 600-400 mg-Unit Tab 1 Tab PO DAILY Acetaminophen 325 Mg Capsule 1 Tab PO PRN Vitamin B-6 (Pyridoxine HCl) 50 Mg Tab 50 Mg PO DAILY Propranolol (Propranolol HCl) 10 Mg Tab 10 Mg PO Q12HR Myrbetriq (Mirabegron) 50 Mg Tab 50 Mg PO DAILY Montelukast (Montelukast Sodium) 10 Mg Tab 10 Mg PO HS Levothyroxine (Levothyroxine Sodium) 50 Mcg Tab 50 Mcg PO DAILY Levetiracetam 500 Mg Tab 500 Mg PO TID Docusate Sodium 100 Mg Cap 100 Mg PO DAILY Clopidogrel (Clopidogrel Bisulfate) 75 Mg Tab 75 Mg PO DAILY Breo Ellipta Inh (Fluticasone/Vilanterol) 100-25 Mcg/Act Inh 1 Puff INH DAILY Use daily at the same time. Christo Butt Paste (Zinc Oxide (Topical)) 16 % Oin Atorvastatin (Atorvastatin Calcium) 20 Mg Tab 20 Mg PO HS Ammonium Lactate (Lactic Acid (Ammonium Lactate)) 12% Lotn 1 Applic TOPICAL BID Alendronate (Alendronate Sodium) 70 Mg Tab 70 Mg PO Q7D Review of Systems Except as stated in HPI: all other systems reviewed are Neg General / Constitutional: No: Fever, Chills Eyes: No: Blurred Vision HENT: No: Headaches Cardiovascular: No: Chest Pain or Discomfort Respiratory: No: Shortness of Breath Gastrointestinal: No: Nausea, Vomiting, Abdominal Pain Musculoskeletal: Positive: Edema, Pain Skin: Positive Other (laceration) Neurologic: No: Syncope Physical Exam Narrative GENERAL: Awake and alert, in no acute distress. SKIN: Focused skin assessment warm/dry. 4 cm laceration to the left elbow. HEAD: Atraumatic. Normocephalic. EYES: Pupils equal and round. No scleral icterus. Extraocular movements intact. ENT: No nasal bleeding or discharge. Mucous membranes pink and moist. NECK: Trachea midline. No JVD. No cervical spine tenderness. CARDIOVASCULAR: Regular rate and rhythm. No murmur appreciated. RESPIRATORY: No accessory muscle use. Clear to auscultation. Breath sounds equal bilaterally. Hepatic and splenic margins not palpable. MUSCULOSKELETAL: No obvious deformities. No clubbing. No cyanosis. No edema. No tenderness to palpation of the thoracic or lumbar spine. No tenderness to palpation of the left humerus or elbow or forearm. No tenderness to the pelvis or hips. Tender to palpation of the left knee, decreased range of motion of the left knee. Swelling of the left knee. NEUROLOGICAL: Awake and alert. No obvious cranial nerve deficits. Motor grossly within normal limits. Normal speech. PSYCHIATRIC: Appropriate mood and affect; insight and judgment normal. Data Data Last Documented VS Vital Signs Date Time Temp Pulse Resp B/P (MAP) Pulse Ox O2 Delivery O2 Flow Rate FiO2 03/04/17 20:27 98.4 74 16 197/82 (120) [address] Brain W/O Iv Contrast(Rout) (03/04/17 ) Elbow, Complete (4 Vws) (03/04/17 ) Knee, Complete (4vws) (03/04/17 ) Acetaminophen (Tylenol) (03/04/17 21:00) Complete Blood Count With Diff (03/04/17 21:50) Basic Metabolic Panel (Bmp) (03/04/17 21:50) Act Partial Throm Time (Ptt) (03/04/17 21:50) Prothrombin Time / Inr (Pt) (03/04/17 21:50) ^ Knee Immobilizer (03/04/17 21:52) Morphine Inj (Morphine Inj) (03/04/17 22:00) Ct Knee W/O Contrast (03/04/17 ) Admit Order (Ed Use Only) (03/04/17 ) Consult Orthopedic (03/04/17 ) Labs Laboratory Tests Test 03/04/17 21:50 White Blood Count 11.2 TH/MM3 Red Blood Count 3.54 MIL/MM3 Hemoglobin 11.1 GM/DL Hematocrit 33.0 % Mean Corpuscular Volume 93.1 FL Mean Corpuscular Hemoglobin 31.4 PG Mean Corpuscular Hemoglobin Concent 33.8 % Red Cell Distribution Width 14.4 % Platelet Count 344 TH/MM3 Mean Platelet Volume 7.5 FL Neutrophils (%) (Auto) 66.0 % Lymphocytes (%) (Auto) 14.9 % Monocytes (%) (Auto) 17.4 % Eosinophils (%) (Auto) 1.3 % Basophils (%) (Auto) 0.4 % Neutrophils # (Auto) 7.4 TH/MM3 Lymphocytes # (Auto) 1.7 TH/MM3 Monocytes # (Auto) 2.0 TH/MM3 Eosinophils # (Auto) 0.1 TH/MM3 Basophils # (Auto) 0.0 TH/MM3 CBC Comment DIFF FINAL Differential Comment Prothrombin Time 10.6 SEC Prothromb Time International Ratio 1.0 RATIO Activated Partial Thromboplast Time 30.2 SEC Blood Urea Nitrogen 15 MG/DL Creatinine 0.82 MG/DL Random Glucose 110 MG/DL Calcium Level 8.7 MG/DL Sodium Level 132 MEQ/L Potassium Level 4.6 MEQ/L Chloride Level 97 MEQ/L Carbon Dioxide Level 28.4 MEQ/L Anion Gap 7 MEQ/L Estimat Glomerular Filtration Rate 89 ML/MIN MDM Medical Decision Making Medical Screen Exam Complete: Yes Emergency Medical Condition: Yes Medical Record Reviewed: Yes Differential Diagnosis Laceration versus head injury versus old fracture versus knee fracture Narrative Course Patient is a 86 year old male who comes in after a slip and fall today. Exam shows swelling and pain to the left knee. CT head shows no acute abnormalities. XR of the elbow shows no acute abnormalities. XR of the knee shows a tibial plateau fracture with minimal depression. Patient given morphine for pain, placed in a knee immobilizer. Dr. Moses of orthopedics consulted, advised NPO after midnight and he will take him to the OR in the morning. Patient admitted for further management. Diagnosis Primary Impression: Tibial plateau fracture, left Qualified Codes: S82.142A - Displaced bicondylar fracture of left tibia, initial encounter for closed fracture Admitting Information Admitting Physician Requests: Admit Condition: Stable Humaira Burt MD Mar 04, 2017 21:35
--- NOTE | 2017-03-04 21:48 | PD ---
Physical Exam Date Seen by Provider: Mar 04, 2017 Time Seen by Provider: 21:46 Narrative Skin: The patient is a 4 cm laceration over his left olecranon. This is a deep skin tear. Data Data Last Documented VS Vital Signs Date Time Temp Pulse Resp B/P (MAP) Pulse Ox O2 Delivery O2 Flow Rate FiO2 03/04/17 20:27 98.4 74 16 197/82 (120) [address] Brain W/O Iv Contrast(Rout) (03/04/17 ) Elbow, Complete (4 Vws) (03/04/17 ) Knee, Complete (4vws) (03/04/17 ) Acetaminophen (Tylenol) (03/04/17 21:00) MDM Medical Record Reviewed: Yes Supervised Visit with KELSIE: Yes Differential Diagnosis MDM: High Differential diagnoses: Fracture, sprain, strain, dislocation, contusion, neurovascular injury Narrative Course Patient's laceration is closed with sutures Procedures Procedure Narrative LACERATION LOCATION: Left elbow LENGTH: 4 cm NUMBER OF STITCHES/RUFUS: 5 REPAIR: The area of the laceration was prepped with Betadine and sterilely draped. The laceration was infiltrated with 1% lidocaine. The wound was copiously irrigated and explored without evidence of foreign body, tendon injury or neurovascular injury. The wound was closed using 4-0 proline. This was a double single layer repair. A sterile dressing was applied. The patient was advised to keep the dressing clean and dry. Patient tolerated the procedure well. Gustavo Oshea Mar 04, 2017 21:48
[2017-03-04] MEDS ORDERED: MORPHINE SULFATE 4 MG/ML INJ IV PUSH ONE (22:00)
[2017-03-04 22:06] LABS: AUTOMATED NEUTROPHIL # 7.4 TH/MM3 (1.8-7.7); BASOPHIL % 0.4 % (0.0-2.0); EOSINOPHIL # 0.1 TH/MM3 (0-0.4); EOSINOPHIL % 1.3 % (0.0-4.0); HEMO FLAGS DIFF FINAL; LYMPH % 14.9 % (9.0-44.0); LYMPHOCYTE # 1.7 TH/MM3 (1.0-4.8); MEAN CELL VOLUME 93.1 FL (80.0-100.0); MEAN CORPUSCULAR HEMOGLOBIN 31.4 PG (27.0-34.0); MEAN CORPUSCULAR HGB CONC 33.8 % (32.0-36.0); MONO % 17.4 % (0.0-8.0); PLATELET COUNT 344 TH/MM3 (150-450); RED BLOOD COUNT 3.54 MIL/MM3 (4.50-5.90); RED CELL DISTRIBUTION WIDTH 14.4 % (11.6-17.2); WHITE BLOOD COUNT 11.2 TH/MM3 (4.0-11.0)
[2017-03-04] MEDS ORDERED: FERR325T8 PO (22:15)
[2017-03-04] MEDS ORDERED: VENTAER INH (22:15)
[2017-03-04] MEDS ORDERED: CARB200T PO (22:15)
[2017-03-04] MEDS ORDERED: CALC1TAB87 PO (22:15)
[2017-03-04] MEDS ORDERED: PRESCAP6 PO (22:15)
[2017-03-04] MEDS ORDERED: NYST0.1P (22:15)
[2017-03-04] MEDS ORDERED: PROC10TA PO (22:15)
[2017-03-04] MEDS ORDERED: GABA300C5 PO (22:15)
[2017-03-04] MEDS ORDERED: ACET325C PO (22:15)
[2017-03-04] MEDS ORDERED: PANT20TA2 PO (22:15)
[2017-03-04] MEDS ORDERED: POLY17S PO (22:15)
[2017-03-04 22:23] LABS: APTT (PATIENT) 30.2 SEC (24.3-30.1); PROTHROMBIN TIME - PATIENT 10.6 SEC (9.8-11.6)
[2017-03-04 22:35] VITALS: BP 170/76; PULSE 74; RESP 17; O2SAT 98
[2017-03-04 22:43] LABS: BICARBONATE 28.4 MEQ/L (21.0-32.0); POTASSIUM 4.6 MEQ/L (3.5-5.1)
[2017-03-04] MEDS ORDERED: MORPHINE SULFATE 4 MG/ML INJ IV PUSH PRN (23:15)
[2017-03-04] MEDS ORDERED: SODIUM CHLORIDE 0.9% FLUSH 10 ML FLUSH IV FLUSH PRN (23:15)
[2017-03-04] MEDS ORDERED: NALOXONE HCL 0.4 MG/ML AMP IV PUSH PRN (23:15)
[2017-03-04] MEDS ORDERED: MAGNESIUM HYDROXIDE SUSP 30 ML CUP PO PRN (23:15)
[2017-03-04] MEDS ORDERED: ONDANSETRON HCL 4 MG/2 ML VIAL IVP PRN (23:15)
[2017-03-04] MEDS ORDERED: BISACODYL 10 MG SUPP RECTAL PRN (23:15)
[2017-03-04] MEDS ORDERED: SENNOSIDES 8.6 MG TAB PO PRN (23:15)
[2017-03-04] MEDS ORDERED: LACTULOSE SYRUP 20 GM/30 ML CUP PO PRN (23:15)
[2017-03-04] MEDS ORDERED: ACETAMINOPHEN 325 MG TAB PO PRN (23:15)
--- NOTE | 2017-03-04 23:30 | RADRPT ---
EXAM DATE/TIME: 03/04/2017 23:03 [facility] COMPARISON: No previous studies available for comparison. INDICATIONS : Trauma, fall. Evaluate fracture. RADIATION DOSE: 7.29 CTDIvol (mGy) MEDICAL HISTORY : Cardiovascular disease. Seizures. Hypertension.CVA. SURGICAL HISTORY : Appendectomy. ENCOUNTER: Initial ACUITY: 1 day PAIN SCALE: 4/10 LOCATION: Left knee TECHNIQUE: Volumetric scanning of the knee was performed. Using automated exposure control and adjustment of th e mA and/or kV according to patient size, radiation dose was kept as low as reasonably achievable to obtain optimal diagnostic quality images. DICOM format image data is available electronically for re view and comparison. FINDINGS: There is a mildly depressed fracture through the medial tibial plateau. Fracture line extends mediall y to the metaphyseal region. There is a positive lipohemarthrosis. Bones are osteopenic. No other fra ctures identified. CONCLUSION: 1. Mildly depressed medial tibial plateau fracture with lipohemarthrosis. No dislocation. Gustavo Taylor MD on March 04, 2017 at 23:24 Board Certified Radiologist. This report was verified electronically.
[2017-03-04] MEDS: SODIUM CHLOR 0.9% 1000 ML INJ 1,000 ML IV SCH (23:47)
[2017-03-05] VITALS (8 sets, daily range): BP systolic 138–187; BP diastolic 53–77; PULSE 63–88; RESP 16–18; TEMP 97.7–100.8; O2SAT 93–96
[2017-03-05] MEDS: ACETAMINOPHEN/HYDROcodone 325 MG/5 MG TAB PO PRN (01:41)
[2017-03-05] MEDS: LEVOTHYROXINE SODIUM 50 MCG TAB PO SCH ×2 (06:33→08:50)
[2017-03-05] MEDS: PROPRANOLOL HCL 10 MG TAB PO SCH ×2 (08:50→22:27)
[2017-03-05] MEDS: levETIRAcetam 500 MG TAB PO SCH ×3 (08:50→18:08)
[2017-03-05] MEDS: PANTOPRAZOLE SOD 20 MG DELAYED RELEASE TAB PO SCH (08:50)
[2017-03-05] MEDS: GABAPENTIN 300 MG CAP PO SCH ×3 (08:50→18:08)
[2017-03-05] MEDS: DOCUSATE SODIUM 50 MG/SENNA 8.6 MG TAB PO SCH ×2 (08:50→22:27)
[2017-03-05] MEDS: LISINOPRIL 5 MG TAB PO SCH (08:50)
[2017-03-05] MEDS: FERROUS SULFATE 325 MG (65 MG ELEMENTAL IRON) TAB PO SCH ×3 (08:50→18:08)
[2017-03-05] MEDS: CALCIUM/VITAMIN D 250 MG/125 U TAB PO SCH (08:50)
[2017-03-05] MEDS: FLUTICASONE 100 MCG/VILANTEROL 25 MCG INHALER INH SCH (09:00)
[2017-03-05] MEDS: SODIUM CHLORIDE 0.9% FLUSH 10 ML FLUSH IV FLUSH SCH ×2 (09:00→22:28)
[2017-03-05] MEDS: PT OWN MYRBETRIQ 50 MG PO SCH (09:00)
[2017-03-05] MEDS: SODIUM CHLOR 0.9% 1000 ML INJ 1,000 ML IV SCH (09:05)
--- NOTE | 2017-03-05 09:52 | EKG ---
Date Performed: 03/05/2017 Time Performed: 04:50:48 PTAGE: 86 years EKG: Sinus arrhythmia. Left axis deviation RBBB with left anterior fascicular block Poor R wave progression Abnormal ECG PREVIOUS TRACING : 08/17/2016 18.21 No significant change from previous tracing noted. DOCTOR: Jose Cardoso Interpretating Date/Time 03/05/2017 09:52:13
--- NOTE | 2017-03-05 15:38 | HHI.PR ---
Objective Objective Results - Vital Signs Date Time Temp Pulse Resp B/P (MAP) Pulse Ox O2 Delivery O2 Flow Rate FiO2 03/05/17 12:00 99.4 75 18 157/69 (98) 93 03/05/17 08:00 99.6 85 18 174/70 (104) 94 03/05/17 05:55 168/76 (106) 03/05/17 04:57 97.7 72 16 96 03/05/17 03:10 63 172/74 (106) 03/05/17 02:15 98.2 69 17 187/77 (113) 95 03/04/17 22:35 74 17 170/76 (107) 98 Room Air 03/04/17 20:27 98.4 74 16 197/82 (120) 99 I/O 03/04/17 03/04/17 03/04/17 03/05/17 03/05/17 03/05/17 07:00 15:00 23:00 07:00 15:00 23:00 Intake Total 677 ml Output Total 400 ml Balance 277 ml Intake Oral 0 ml IV Total 677 ml Output Urine Total 400 ml # Bowel Movements 0 (Danielle Tidwell) Result Diagram: 03/04/17214903/04/172149 Physical Exam Physical Exam PHYSICAL EXAMINATION GENERAL: This is a well-developed, well-nourished male who appears to be in no acute distress. He is alert and awake, []. HEAD: Normocephalic without any lesion or mass noted. Facial features appear symmetric. OROPHARYNGEAL: Oropharynx without erythema or edema. NECK: Supple. No nuchal rigidity or lymphadenopathy. Trachea midline without deviation. CARDIAC: Regular rhythm, regular rate, S1 and S2 are heard. Murmur []; no gallops or rubs. LUNGS: Clear to auscultation bilaterally. [] wheeze, [] rhonchi or [] rale. No use of accessory muscles on inspiration or expiration. ABDOMEN: Soft, nontender, no organomegaly or masses. Bowel sounds are heard in all four quadrants. No rebound. No guarding. EXTREMITIES: [] edema. Pulses equal bilateral. [] cyanosis. NEUROLOGICAL: Patient mood and affect appropriate. No focal deficit SKIN:Warm and moist (Danielle Tidwell) A/P Assessment and Plan [id number] (Danielle Tidwell) Assessment and Plan pt was seen & examined this afternoon d/w pt d/w danielle rayo ortho consult see orders see H&P will f/u (Brayden Brewer MD) Danielle Tidwell Mar 05, 2017 15:38 Brayden Brewer MD Mar 05, 2017 21:35
--- NOTE | 2017-03-05 16:05 | MB ---
cc: JAIME ALVARENGA M.D. DATE OF CONSULTATION: 03/05/2017. REASON FOR CONSULTATION: Requested to evaluate left knee medial tibial plateau fracture. HISTORY OF PRESENT ILLNESS: Carlos Lucas is an 86-year-old male who resides at an assisted living facility who spends the vast majority of his time in a wheelchair and spends approximately two hours a week doing therapeutic ambulation. He sustained a fall yesterday on 03/04/2017 and came through the emergency room at [facility] where x-rays revealed a medial tibial plateau fracture with mild varus alignment of the limb. Further evaluation with CT scan was performed and revealed no major intraarticular step-off, just mild varus. The patient was admitted to the medical service with consultation placed with the undersigned. PAST MEDICAL HISTORY: The past medical history is significant for: 1. Prostate cancer status post seed implants. 2. He has a diagnosis of asthma. 3. Arthritis. 4. He has hypertension. 5. Elevated cholesterol. 6. Past history of chest pain. No active chest pain. 7. History of COPD. 8. Previous history of TIA. 9. He has Gastroesophageal reflux. 10. Urinary incontinence. 11. Headaches. 12. Previous multiple hip fractures. 13. Previous history of seizures. 14. Has ongoing problem with vertigo. 15. He has had bilateral cataract surgery. 16. Appendectomy. 17. PEG-tube placement. 18. Tonsillectomy. MEDICATIONS: His medications are reviewed from transfer papers and within the chart. ALLERGIES: His allergies are multiple and are reviewed and maintained in the chart. PHYSICAL EXAMINATION: GENERAL: The patient is alert and oriented and appropriate and his power of botanical technical officer is at the bedside. He has good motion of his upper extremities and his right lower extremity. The left lower extremity shows a slight varus 2+ fusion on the knee, tenderness globally about the knee and the medial tibial plateau. The lateral tibial plateau is not tender. We took him through a very limited range of motion as this caused discomfort. Calves are soft. Distal pulses are 2+. His distal pulse is intact. Good motion of the ankle. He has some claw toe deformity present and some diminished sensation consistent with peripheral neuropathy. IMAGING STUDIES: His x-rays and the CT scan of the left knee are reviewed which show comminuted medial tibial plateau fracture with mild varus malalignment and no major intra-articular step-off. ASSESSMENT: Medial tibial plateau fracture. MEDICAL DECISION-MAKING: His condition was discussed and the options of treatment were discussed. We talked about two legitimate alternatives: 1. Open reduction internal fixation. 2. Nonoperative treatment. We had a very long discussion and came to the conclusion that right now his ambulation is primarily therapeutic and therefore the recommendation is nonoperative fracture management for this problem. Will proceed with ordering long-leg hinged knee brace is with the hinges unlocked. Will initiate transfer training with physical therapy. There is still risk of displacement, possible need for surgery. I am hopeful that the bone will heal over the course of several months and then he would be able to resume therapeutic ambulation. All of his questions were answered and his power of botanical technical officer's questions were answered. MD LUNA Vieyra/CHUNG /12:29 PM /3:52 PM
[2017-03-05] MEDS: ATORVASTATIN 20 MG TAB PO SCH (22:27)
[2017-03-05] MEDS: MONTELUKAST SODIUM 10 MG TAB PO SCH (22:27)
[2017-03-05] MEDS: ENOXAPARIN SODIUM 40 MG/0.4 ML SYRINGE SQ SCH (22:28)
[2017-03-06 00:47] VITALS: BP 113/51; PULSE 77; RESP 18; TEMP 100.2; O2SAT 93
[2017-03-06] MEDS: SODIUM CHLOR 0.9% 1000 ML INJ 1,000 ML IV SCH ×3 (05:05→22:13)
[2017-03-06 08:00] VITALS: BP 153/65; PULSE 72; RESP 17; TEMP 98; O2SAT 96
[2017-03-06 08:06] LABS: HEMATOCRIT 31.6 % (39.0-51.0); MEAN CELL VOLUME 92.3 FL (80.0-100.0); MEAN CORPUSCULAR HEMOGLOBIN 31.5 PG (27.0-34.0); MEAN CORPUSCULAR HGB CONC 34.1 % (32.0-36.0); PLATELET COUNT 263 TH/MM3 (150-450); RED BLOOD COUNT 3.42 MIL/MM3 (4.50-5.90); RED CELL DISTRIBUTION WIDTH 14.7 % (11.6-17.2); REVIEW FLAG FINAL; WHITE BLOOD COUNT 11.5 TH/MM3 (4.0-11.0)
[2017-03-06 08:27] LABS: BICARBONATE 29.3 MEQ/L (21.0-32.0)
[2017-03-06] MEDS: PT OWN MYRBETRIQ 50 MG PO SCH (09:00)
[2017-03-06] MEDS: FLUTICASONE 100 MCG/VILANTEROL 25 MCG INHALER INH SCH (09:00)
--- NOTE | 2017-03-06 09:37 | MH ---
cc: HARIS BREWER MD DATE OF ADMISSION 03/04/2017 DATE OF 1930 This is Danielle Tidwell, nurse practitioner dictating with Dr. Brewer present. Travel in the last 30 days none. CHIEF COMPLAINT Fall. HISTORY OF PRESENT ILLNESS This is an 86-year-old white male who accidentally slipped in the bathroom and fell [facility]. The patient was evaluated in the hospital and was found to have a blunt trauma to the left elbow as well as the left knee. It was found after further testing he has a displaced bicondylar fracture of the left tibia. He was admitted for further evaluation and treatment. The patient is currently resting in the bed. He is awake, pleasant and is secured in a splint left total leg. The patient denies any current headaches, although he states that he did have occasional headaches in the past. He currently denies any chest pain or shortness of breath but states there are times that he gets short of breath in the past. The patient denies any cough. Had been in his normal state of health up until this fall. PAST MEDICAL HISTORY The patient is a fair to poor historian. Most of this information except for simple information is being obtained from the record. PAST MEDICAL HISTORY 1. Arthritis. 2. Asthma. 3. Prostate cancer. 4. Hypertension. 5. Hyperlipidemia. 6. Chest pain. 7. Cardiovascular disease. 8. Chronic obstructive pulmonary disease. 9. Transient ischemic attacks. 10. Hard of hearing. 11. Gastroesophageal reflux disease. 12. Urinary incontinence. 13. Headaches. 14. Bilateral hip fracture. 15. Pelvic fractures. 16. History of seizures. 17. Vertigo. PAST SURGICAL HISTORY 1. Percutaneous endoscopic gastrostomy placement in November of 2014 but then removed. 2. Appendectomy. 3. Hardware. 4. Bilateral hip repair. 5. Left ear cancer surgery. 6. Bilateral cataracts. 7. Prostate cancer. 8. Prostatectomy. ALLERGIES MDRO MULTI RESISTANT ORGANISMS. SULFA. AMOXICILLIN. CLAVULANIC ACID. PRIMIDONE. IMIPRAMINE. MEDICATIONS Reported: 1. Ventolin. 2. Multivitamins. 3. Bowel regimen. 4. Propranolol. 5. Niacin. 6. Gabapentin. 7. Ferrous sulfate. 8. Carbamazepine. 9. Tylenol. 10. Montelukast. 11. Levothyroxine. 12. Mirabegron. 13. Thyroid medicine. 14. Plavix. 15. Breo Ellipta. 16. Zinc oxide. 17. Atorvastatin. 18. Ammonia lactate. 19. Alendronate. 20. Prochlorperazine. REVIEW OF SYSTEMS Limited review of symptoms except what is mentioned in history of present illness. SOCIAL HISTORY Currently the patient states that he is , he told me that two different times. He states that his lives in [facility]. 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 No illicit drugs. PHYSICAL EXAMINATION VITAL SIGNS: Temperature is 99.4, pulse 75, respirations 18, blood pressure 157/69, has been as high as 187/77 and has also run his systolic in the 160s, 170s. O2 sat 93% currently on room air. GENERAL: Elderly white male looks to be his stated age resting in the bed. He is awake and appropriate. SKIN: Very pale, warm and dry. Thin turgor. He does have some scaling been noted on his left ear pinna but no active bleeding or lacerations. HEENT: Atraumatic, normocephalic. Mucous membranes are pale but moist. No scleral icterus. PRICILA. Tongue is midline. NECK: Supple. CARDIOVASCULAR: S1-S2. Regular rate and rhythm. No audible murmur, rub or gallop. His lower extremities have trace of edema and are warm to touch. RESPIRATORY: Essentially clear to auscultation. He has no rhonchi or wheezing. MUSCULOSKELETAL: Moves his upper extremities with purpose and his right leg. He can move his toes and his leg on command. Left leg is secured with his brace. NEUROLOGIC: He is pleasant, answers only simple questions appropriately. Speech is clear and understandable. DIAGNOSTIC DATA WBC count 11.2, RBC 3.54, hemoglobin 11.1, hematocrit 33, platelet count 344. Monocyte count 17.4. PT INR is 1. Chemistry sodium 132, potassium 4.6, chloride 97, BUN 15, creatinine 0.82, random glucose 110. Calcium is 8.7. IMAGING Imaging studies show his left elbow x-ray to have no evidence of fracture. Head CT scan no acute findings. Knee x-ray mildly depressed medial tibial plateau fracture. This is the left knee. Lower extremity CT mildly depressed medial tibial plateau fracture with lipohemaarthrosis. No dislocation. ASSESSMENT/PLAN 1. Left tibial plateau fracture. 2. Fall. 3. History of COPD. 4. Debility. 5. Hypertension. 6. History of cardiovascular disease and transient ischemic attacks. 7. Leukocytosis, mild. 8. Hyponatremia, mild. 9. Anemia. Our plan is to monitor his medical comorbidities. We will monitor vital signs and labs. Monitor vital signs q.4h and as warranted. Labs will be monitored daily and/or as needed. The patient has sequential compression devices on. Bowel regimen. Activity is currently bed rest. Medications as warranted, have been reconciled. Orthopedics consultation has been done. Currently the patient is secured in a hard brace. He currently will be monitored and evaluated for post care per orthopedic recommendations. Currently no surgery at this time. The patient has a CBC to be drawn tomorrow as well as a BMP. His diet is a regular basic. Physical therapy will work with wheelchair training. He is currently on Protonix for PUD prophylaxis. Pain management. Sequential compression devices for deep venous thrombosis prophylaxis. We will continue to monitor his medical needs. Once he is medically stable he will either return back to his previous settings, may be evaluated for rehabilitation, detention facility. He is full code, full aggressive care at this time. Dictated by: ANA Richard MD SULY West/ZAKIA /3:25 PM /9:35 AM
[2017-03-06] MEDS: FERROUS SULFATE 325 MG (65 MG ELEMENTAL IRON) TAB PO SCH ×3 (10:33→18:30)
[2017-03-06] MEDS: CALCIUM/VITAMIN D 250 MG/125 U TAB PO SCH (10:33)
[2017-03-06] MEDS: LISINOPRIL 5 MG TAB PO SCH (10:34)
[2017-03-06] MEDS: PANTOPRAZOLE SOD 20 MG DELAYED RELEASE TAB PO SCH (10:34)
[2017-03-06] MEDS: PROPRANOLOL HCL 10 MG TAB PO SCH ×2 (10:34→20:54)
[2017-03-06] MEDS: levETIRAcetam 500 MG TAB PO SCH ×3 (10:34→18:00)
[2017-03-06] MEDS: GABAPENTIN 300 MG CAP PO SCH ×3 (10:34→18:00)
[2017-03-06] MEDS: DOCUSATE SODIUM 50 MG/SENNA 8.6 MG TAB PO SCH ×2 (10:34→20:54)
[2017-03-06] MEDS: SODIUM CHLORIDE 0.9% FLUSH 10 ML FLUSH IV FLUSH SCH ×2 (10:40→20:54)
[2017-03-06 12:00] VITALS: BP 154/62; PULSE 70; RESP 18; TEMP 99.1; O2SAT 97
[2017-03-06] MEDS: ACETAMINOPHEN/HYDROcodone 325 MG/5 MG TAB PO PRN (13:39)
--- NOTE | 2017-03-06 13:42 | HHI.PR ---
Subjective Subjective Remarks awake, oriented x 3 pleasant left knee pain has been out of bed, did well febrile overnight, max 100.8 no cp, no sob no cough Review of Systems Constitutional Constitutional Remarks 12 point ros completed, negative except as noted above Vitals/Results Vital Signs Vital Signs Date Time Temp Pulse Resp B/P (MAP) Pulse Ox O2 Delivery O2 Flow Rate FiO2 03/06/17 08:00 98.0 72 17 153/65 (94) 96 03/06/17 00:47 100.2 77 18 113/51 (71) 93 03/05/17 20:34 100.8 80 17 138/53 (81) 93 03/05/17 16:00 100.4 88 18 174/70 (104) 93 CBC/BMP: 03/06/17 0742 03/06/17 0742 Lab Results Laboratory Tests Test 03/06/17 07:42 White Blood Count 11.5 TH/MM3 Red Blood Count 3.42 MIL/MM3 Hemoglobin 10.8 GM/DL Hematocrit 31.6 % Mean Corpuscular Volume 92.3 FL Mean Corpuscular Hemoglobin 31.5 PG Mean Corpuscular Hemoglobin Concent 34.1 % Red Cell Distribution Width 14.7 % Platelet Count 263 TH/MM3 Mean Platelet Volume 7.5 FL Blood Urea Nitrogen 11 MG/DL Creatinine 0.70 MG/DL Random Glucose 119 MG/DL Calcium Level 8.0 MG/DL Sodium Level 133 MEQ/L Potassium Level 4.0 MEQ/L Chloride Level 98 MEQ/L Carbon Dioxide Level 29.3 MEQ/L Anion Gap 6 MEQ/L Estimat Glomerular Filtration Rate 107 ML/MIN Physical Exam General General Appearance: Well Developed, Well Nourished, No Acute Distress, Comfortable Eyes Eye Exam: Pupils Equal, Pupils Reactive Ears & Nose Ears & Nose Exam: Nasal Mucosa [place] Throat Throat Exam: Oral Mucosa [place] & Moist Neck Neck Exam: Neck Supple, Trachea Midline Pulmonary Resp Exam: No Distress Cardiology CV Exam: Regular, Good Perfusion Gastrointestinal/Abdomen GI Exam: Soft, Non-Tender, Bowel Sounds Present, Non-Distended Musculoskeletal MS Remarks Left knee in hinged brace, mild left knee swelling Integumentary Skin Exam: Warm, Dry Extremeties Extremities Exam: Pedal Pulses Palpable, Trace Edema Neurologic Neuro Exam: Alert, Awake, Oriented, Speech Clear, Crime Scene Specialist Equal Psychiatric Psych Exam: Appropriate Responses VTE Prophylaxis VTE Prophylaxis Meds: Lovenox Assessment/Plan Assessment/Plan ASSESSMENT/PLAN 1. Left tibial plateau fracture. 2. Fall. 3. History of COPD. 4. Debility. 5. Hypertension. 6. History of cardiovascular disease and transient ischemic attacks. 7. Leukocytosis, mild. 8. Hyponatremia, mild. 9. Anemia. 10. Seizure disorder Plan S/P fall with Left tibial plateau fracture appreciate ortho input, non operative tx recommended, hinged brace pt. mostly wc bound at facility continue with PT pain management bowel regimen Seizure prec. continue home meds Protonix for PUD prophylaxis Sequential compression devices/Lovenox for deep venous thrombosis prophylaxis Leukocytosis and low grade fever UA/UC now Labs reviewed continue home meds Labs in am CM for DC planning, poss dc tomorrow D/W RN D/W Dr. Brewer D/W Pt. This pt. was seen by myself and Dr. Brewer, this note is written on his behalf. Delaney Crump Mar 06, 2017 13:42
[2017-03-06 16:00] VITALS: BP 135/69; PULSE 72; RESP 18; TEMP 98.8; O2SAT 97
--- NOTE | 2017-03-06 17:25 | PD.ORT.PN ---
Subjective Subjective Remarks Patient comfortable. Pain controlled. Objective Vitals Vital Signs Date Time Temp Pulse Resp B/P (MAP) Pulse Ox O2 Delivery O2 Flow Rate FiO2 03/06/17 12:00 99.1 70 18 154/62 (92) 97 03/06/17 08:00 98.0 72 17 153/65 (94) 96 03/06/17 00:47 100.2 77 18 113/51 (71) 93 03/05/17 20:34 100.8 80 17 138/53 (81) 93 I/O 03/05/17 03/05/17 03/05/17 03/06/17 03/06/17 03/06/17 07:00 15:00 23:00 07:00 15:00 23:00 Intake Total 677 ml 360 ml 120 ml 240 ml 480 ml Output Total 400 ml 350 ml 400 ml Balance 277 ml 10 ml 120 ml -160 ml 480 ml Intake Oral 0 ml 360 ml 120 ml 240 ml 480 ml IV Total 677 ml Output Urine Total 400 ml 350 ml 400 ml # Voids 1 2 # Bowel Movements 0 0 1 0 1 Result Diagram: 03/06/17 0742 03/06/17 0742 Objective Remarks Left knee skin intact moderate effusion tenderness with direct palpation long hinge knee brace in place calves soft negative Misha's NVI Assessment & Plan Problem List: (1) Tibial plateau fracture, left ICD Codes: S82.142A - Displaced bicondylar fracture of left tibia, initial encounter for closed fracture Status: Acute Qualifiers: Qualified Codes: S82.142A - Displaced bicondylar fracture of left tibia, initial encounter for closed fracture Assessment and Plan Nonoperative fracture management at this time Continue to use long hinge knee brace Physical therapy - non weight bearing LLE. D/C planning - anticipating SNF Monitor Jose Carlos Wright Mar 06, 2017 17:25
[2017-03-06 19:56] VITALS: BP 162/70; PULSE 82; RESP 17; TEMP 100.8; O2SAT 96
[2017-03-06] MEDS: MONTELUKAST SODIUM 10 MG TAB PO SCH (20:54)
[2017-03-06] MEDS: ATORVASTATIN 20 MG TAB PO SCH (20:54)
[2017-03-06] MEDS: ENOXAPARIN SODIUM 40 MG/0.4 ML SYRINGE SQ SCH (20:54)
[2017-03-06 22:14] LABS: BACTERIA, URINE RARE /hpf; BLOOD, URINE SMALL (NEG); COMMENT (UR) CULTURE INDICATED; CULTURE IF INDICATED CULTURE INDICATED; GLUCOSE,URINE NEG (NEG); KETONE, URINE NEG (NEG); MUCUS URINE FEW /lpf (OCC); NITRITE,URINE NEG (NEG); PH, URINE 6.5 (5.0-8.5); SQUAMOUS EPITHELIAL CELL URINE <1 /hpf (0-5); URINE COLOR YELLOW (YELLW/STRAW)
[2017-03-06 23:55] VITALS: BP 161/68; PULSE 86; RESP 18; TEMP 100.4; O2SAT 95
[2017-03-07] VITALS (7 sets, daily range): BP systolic 95–152; BP diastolic 42–78; PULSE 67–83; RESP 16–18; TEMP 96.7–99.6; O2SAT 95–99
[2017-03-07] MEDS: LEVOTHYROXINE SODIUM 50 MCG TAB PO SCH ×2 (05:31→09:47)
--- NOTE | 2017-03-07 07:57 | PD.ORT.PN ---
Subjective Subjective Remarks Patient comfortable. Pain controlled. Objective Vitals Vital Signs Date Time Temp Pulse Resp B/P (MAP) Pulse Ox O2 Delivery O2 Flow Rate FiO2 03/07/17 04:36 99.6 83 18 151/78 (102) 96 03/06/17 23:55 100.4 86 18 161/68 (99) 95 03/06/17 19:56 100.8 82 17 162/70 (100) 96 03/06/17 16:00 98.8 72 18 135/69 (91) 97 03/06/17 12:00 99.1 70 18 154/62 (92) 97 03/06/17 08:00 98.0 72 17 153/65 (94) 96 I/O 03/06/17 03/06/17 03/06/17 03/07/17 03/07/17 03/07/17 06:59 14:59 22:59 06:59 14:59 22:59 Intake Total 240 ml 480 ml 480 ml 360 ml Output Total 400 ml 250 ml Balance -160 ml 480 ml 230 ml 360 ml Intake Oral 240 ml 480 ml 480 ml 360 ml Output Urine Total 400 ml 250 ml # Voids 2 2 # Bowel Movements 0 1 0 0 Result Diagram: 03/06/17 0742 03/06/17 0742 Objective Remarks Left knee skin intact moderate effusion tenderness with direct palpation long hinge knee brace in place calves soft negative Misha's NVI Assessment & Plan Problem List: (1) Tibial plateau fracture, left ICD Codes: S82.142A - Displaced bicondylar fracture of left tibia, initial encounter for closed fracture Status: Acute Qualifiers: Qualified Codes: S82.142A - Displaced bicondylar fracture of left tibia, initial encounter for closed fracture Assessment and Plan Nonoperative fracture management at this time Continue to use long hinge knee brace at all times. Physical therapy - non weight bearing LLE Orthopedically stable for discharge. Will need medical clearance. D/C planning - anticipating SNF F/U in [address] Moses or ANA in office Jose Carlos Wright Mar 07, 2017 07:57
[2017-03-07] MEDS: PT OWN MYRBETRIQ 50 MG PO SCH (09:00)
[2017-03-07] MEDS: FLUTICASONE 100 MCG/VILANTEROL 25 MCG INHALER INH SCH ×2 (09:00→14:09)
[2017-03-07] MEDS: PROPRANOLOL HCL 10 MG TAB PO SCH ×2 (09:47→20:31)
[2017-03-07] MEDS: PANTOPRAZOLE SOD 20 MG DELAYED RELEASE TAB PO SCH (09:47)
[2017-03-07] MEDS: FERROUS SULFATE 325 MG (65 MG ELEMENTAL IRON) TAB PO SCH ×3 (09:47→18:39)
[2017-03-07] MEDS: CALCIUM/VITAMIN D 250 MG/125 U TAB PO SCH (09:47)
[2017-03-07] MEDS: DOCUSATE SODIUM 50 MG/SENNA 8.6 MG TAB PO SCH ×2 (09:47→20:32)
[2017-03-07] MEDS: GABAPENTIN 300 MG CAP PO SCH ×3 (09:47→18:39)
[2017-03-07] MEDS: levETIRAcetam 500 MG TAB PO SCH ×3 (09:47→18:39)
[2017-03-07] MEDS: LISINOPRIL 5 MG TAB PO SCH (09:47)
[2017-03-07] MEDS: ACETAMINOPHEN/HYDROcodone 325 MG/5 MG TAB PO PRN (09:48)
[2017-03-07] MEDS: SODIUM CHLORIDE 0.9% FLUSH 10 ML FLUSH IV FLUSH SCH ×2 (09:54→20:40)
--- NOTE | 2017-03-07 10:01 | HHI.PR ---
Subjective Subjective Remarks awake, oriented x 3 pleasant left knee pain is 0 at this time febrile overnight, max 100.8 no cp, no sob no cough eating well Review of Systems Constitutional Constitutional Remarks 12 point ros completed, negative except as noted above Vitals/Results Vital Signs Vital Signs Date Time Temp Pulse Resp B/P (MAP) Pulse Ox O2 Delivery O2 Flow Rate FiO2 03/07/17 08:00 99.5 82 18 131/64 (86) 95 03/07/17 04:36 99.6 83 18 151/78 (102) 96 03/06/17 23:55 100.4 86 18 161/68 (99) 95 03/06/17 19:56 100.8 82 17 162/70 (100) 96 03/06/17 16:00 98.8 72 18 135/69 (91) 97 03/06/17 12:00 99.1 70 18 154/62 (92) 97 CBC/BMP: 03/06/17 0742 03/06/17 0742 Lab Results Laboratory Tests Test 03/06/17 21:02 Urine Color YELLOW Urine Turbidity HAZY Urine pH 6.5 Urine Specific [place]ck[place] 1.019 Urine Protein 30 mg/dL Urine Glucose (UA) NEG mg/dL Urine Ketones NEG mg/dL Urine Occult Blood SMALL Urine Nitrite NEG Urine Bilirubin NEG Urine Urobilinogen LESS THAN 2.0 MG/DL Urine Leukocyte Esterase LARGE Urine RBC 7 /hpf Urine WBC /hpf Urine Squamous Epithelial Cells <1 /hpf Urine Amorphous Sediment RARE Urine Bacteria RARE /hpf Urine Mucus FEW /lpf Microscopic Urinalysis Comment CULTURE INDICATED Microbiology Microbiology 03/06/17 Urine Culture, Received Pending Physical Exam General General Appearance: Well Developed, Well Nourished, No Acute Distress, Comfortable Eyes Eye Exam: Pupils Equal, Pupils Reactive Ears & Nose Ears & Nose Exam: Nasal Mucosa [place] Throat Throat Exam: Oral Mucosa [place] & Moist Neck Neck Exam: Neck Supple, Trachea Midline Pulmonary Resp Exam: No Distress Cardiology CV Exam: Regular, Good Perfusion Gastrointestinal/Abdomen GI Exam: Soft, Non-Tender, Bowel Sounds Present, Non-Distended Musculoskeletal MS Remarks Left knee in hinged brace, mild left knee swelling Integumentary Skin Exam: Warm, Dry Extremeties Extremities Exam: Pedal Pulses Palpable, Trace Edema Neurologic Neuro Exam: Alert, Awake, Oriented, Speech Clear, Software Test And Validation Engineer Equal Psychiatric Psych Exam: Appropriate Responses VTE Prophylaxis VTE Prophylaxis Meds: Lovenox Assessment/Plan Assessment/Plan ASSESSMENT/PLAN 1. Left tibial plateau fracture. 2. Fall. 3. History of COPD. 4. Debility. 5. Hypertension. 6. History of cardiovascular disease and transient ischemic attacks. 7. Leukocytosis, mild. 8. Hyponatremia, mild. 9. Anemia. 10. Seizure disorder 11. UTI Plan S/P fall with Left tibial plateau fracture appreciate ortho input, non operative tx recommended, hinged brace pt. mostly wc bound at facility continue with PT pain management bowel regimen Seizure prec. continue home meds Protonix for PUD prophylaxis Sequential compression devices/Lovenox for deep venous thrombosis prophylaxis Leukocytosis remains with low grade fever UA/UC positive for leukocyte esterase and mild bacteriuria start Cipro 250 mg by mouth every 12 continue home meds Clear for discharge by orthopedic Possible discharge later this afternoon if no more fever D/W RN D/W Dr. Brewer D/W Pt. This pt. was seen by myself and Dr. Brewer, this note is written on his behalf. Delaney Crump Mar 07, 2017 10:01
[2017-03-07] MEDS: CIPROFLOXACIN 250 MG TAB PO SCH ×2 (14:06→20:32)
[2017-03-07] MEDS: SODIUM CHLOR 0.9% 1000 ML INJ 1,000 ML IV SCH ×2 (14:11→20:33)
[2017-03-07 17:11] LABS: HEMATOCRIT 29.2 % (39.0-51.0); MEAN CELL VOLUME 92.6 FL (80.0-100.0); MEAN CORPUSCULAR HEMOGLOBIN 31.2 PG (27.0-34.0); MEAN CORPUSCULAR HGB CONC 33.7 % (32.0-36.0); PLATELET COUNT 258 TH/MM3 (150-450); RED BLOOD COUNT 3.16 MIL/MM3 (4.50-5.90); RED CELL DISTRIBUTION WIDTH 14.4 % (11.6-17.2); REVIEW FLAG FINAL; WHITE BLOOD COUNT 11.4 TH/MM3 (4.0-11.0)
[2017-03-07 17:41] LABS: BICARBONATE 27.4 MEQ/L (21.0-32.0); POTASSIUM 4.1 MEQ/L (3.5-5.1)
[2017-03-07] MEDS: ATORVASTATIN 20 MG TAB PO SCH (20:31)
[2017-03-07] MEDS: MONTELUKAST SODIUM 10 MG TAB PO SCH (20:32)
[2017-03-07] MEDS: ENOXAPARIN SODIUM 40 MG/0.4 ML SYRINGE SQ SCH (20:33)
[2017-03-08 03:40] VITALS: BP 130/60; PULSE 99; RESP 17; TEMP 97.1; O2SAT 92
[2017-03-08] MEDS: SODIUM CHLOR 0.9% 1000 ML INJ 1,000 ML IV SCH (07:05)
[2017-03-08 08:00] VITALS: BP 149/67; PULSE 74; RESP 17; TEMP 97.8; O2SAT 96
[2017-03-08] MEDS: FLUTICASONE 100 MCG/VILANTEROL 25 MCG INHALER INH SCH (09:00)
[2017-03-08] MEDS: SODIUM CHLORIDE 0.9% FLUSH 10 ML FLUSH IV FLUSH SCH ×2 (09:00→19:42)
[2017-03-08] MEDS: PT OWN MYRBETRIQ 50 MG PO SCH (09:00)
[2017-03-08] MEDS: FERROUS SULFATE 325 MG (65 MG ELEMENTAL IRON) TAB PO SCH ×3 (09:28→17:45)
[2017-03-08] MEDS: PANTOPRAZOLE SOD 20 MG DELAYED RELEASE TAB PO SCH (09:28)
[2017-03-08] MEDS: PROPRANOLOL HCL 10 MG TAB PO SCH ×2 (09:28→19:41)
[2017-03-08] MEDS: DOCUSATE SODIUM 50 MG/SENNA 8.6 MG TAB PO SCH ×2 (09:28→19:42)
[2017-03-08] MEDS: CIPROFLOXACIN 250 MG TAB PO SCH (09:28)
[2017-03-08] MEDS: levETIRAcetam 500 MG TAB PO SCH ×3 (09:28→17:45)
[2017-03-08] MEDS: CALCIUM/VITAMIN D 250 MG/125 U TAB PO SCH (09:28)
[2017-03-08] MEDS: LISINOPRIL 5 MG TAB PO SCH (09:29)
[2017-03-08] MEDS: GABAPENTIN 300 MG CAP PO SCH ×3 (09:29→17:45)
[2017-03-08] MEDS ORDERED: OXYC1TAB63 PO (09:55)
[2017-03-08] MEDS ORDERED: CIPR250T52 PO (09:55)
--- NOTE | 2017-03-08 09:56 | HHI.DCPOC ---
Discharge Care Plan Diagnosis: (1) Bicondylar fracture of left tibia Your Health Problems Are: Difficulty with ADL Leg Swelling Goals to Promote Your Health * To prevent worsening of your condition and complications * To maintain your health at the optimal level Directions to Meet Your Goals Take your medications as prescribed Follow your dietary instruction Follow activity as directed Keep your appointments as scheduled Take your immunizations and boosters as scheduled If your symptoms worsen call your PCP, if no PCP go to Urgent Care Center or Emergency Room Smoking is Dangerous to Your Health. Avoid second hand smoke Call the 24-hour hour crisis hotline for domestic abuse at Delaney Crump. [facility] Mar 08, 2017 09:56
--- NOTE | 2017-03-08 09:58 | HHI.DS ---
Discharge Summary Admission Date Mar 04, 2017 at 22:33 Discharge Date: Mar 08, 2017 Admitting Diagnosis tibial plateau fracture (1) Tibial plateau fracture, left ICD Codes: S82.142A - Displaced bicondylar fracture of left tibia, initial encounter for closed fracture Status: Acute (2) Bicondylar fracture of left tibia ICD Codes: S82.142A - Displaced bicondylar fracture of left tibia, initial encounter for closed fracture (3) Hx-TIA (transient ischemic attack) ICD Codes: Z86.73 - History of transient cerebral ischemia Status: Chronic (4) Carotid artery disease ICD Codes: I77.9 - Carotid artery disease Status: Chronic (5) HTN (hypertension) ICD Codes: I10 - Hypertension Status: Chronic (6) Peripheral arterial disease ICD Codes: I73.9 - Peripheral arterial disease Status: Acute (7) Debility ICD Codes: R53.81 - Debility Status: Chronic (8) Fall ICD Codes: W19.XXXA - Fall Status: Acute (9) COPD (chronic obstructive pulmonary disease) ICD Codes: J44.9 - Chronic obstructive pulmonary disease, unspecified Status: Chronic (10) Seizure disorder ICD Codes: G40.909 - Epilepsy, unspecified, not intractable, without status epilepticus Status: Chronic CBC/BMP: 03/07/17 1654 03/07/17 1654 Significant Findings Laboratory Tests Test 03/06/17 07:42 03/06/17 21:02 03/07/17 16:54 White Blood Count 11.5 TH/MM3 (4.0-11.0) 11.4 TH/MM3 (4.0-11.0) Red Blood Count 3.42 MIL/MM3 (4.50-5.90) 3.16 MIL/MM3 (4.50-5.90) Hemoglobin 10.8 GM/DL (13.0-17.0) 9.8 GM/DL (13.0-17.0) Hematocrit 31.6 % (39.0-51.0) 29.2 % (39.0-51.0) Random Glucose 119 MG/DL (74-106) 127 MG/DL (74-106) Calcium Level 8.0 MG/DL (8.5-10.1) 8.2 MG/DL (8.5-10.1) Sodium Level 133 MEQ/L (136-145) 133 MEQ/L (136-145) Urine Turbidity HAZY (CLEAR) Urine Protein 30 mg/dL (NEG-TRACE) Urine Occult Blood SMALL (NEG) Urine Leukocyte Esterase LARGE (NEG) Urine RBC 7 /hpf (0-3) Urine Bacteria RARE /hpf (NONE) Urine Mucus FEW /lpf (OCC) Blood Urea Nitrogen 19 MG/DL (7-18) Estimat Glomerular Filtration Rate 85 ML/MIN (>89) Imaging Last Impressions Lower Extremity CT 03/04/17 0000 Signed Impressions: Service Date/Time: Saturday, March 04, 2017 23:03 - CONCLUSION: 1. Mildly depressed medial tibial plateau fracture with lipohemarthrosis. No dislocation. Gustavo Taylor MD Knee X-Ray 03/04/17 0000 Signed Impressions: Service Date/Time: Saturday, March 04, 2017 20:58 - CONCLUSION: Mildly depressed medial tibial plateau fracture. Manish Carrero MD Head CT 03/04/17 0000 Signed Impressions: Service Date/Time: Saturday, March 04, 2017 21:13 - CONCLUSION: No acute findings. Manish Carrero MD Elbow X-Ray 03/04/17 0000 Signed Impressions: Service Date/Time: Saturday, March 04, 2017 21:07 - CONCLUSION: No evidence of fracture or radiopaque foreign body. Manish Carrero MD Hospital Course This is an 86-year-old white male who accidentally slipped in the bathroom and fell at the care home setting. The patient was evaluated in the hospital and was found to have a blunt trauma to the left elbow as well as the left knee. It was found after further testing he has a displaced bicondylar fracture of the left tibia. He was admitted for further evaluation and treatment. The patient was currently resting in the bed. He was awake, pleasant and left leg was secured in a splint . The patient denies any current headaches, although he states that he did have occasional headaches in the past. He denies any chest pain or shortness of breath but states there are times that he gets short of breath in the past. The patient denies any cough. Had been in his normal state of health up until this fall. Pt. is mostly wheelchair bound at [facility]. Was evaluated in the ED; DIAGNOSTIC DATA WBC count 11.2, RBC 3.54, hemoglobin 11.1, hematocrit 33, platelet count 344. Monocyte count 17.4. PT INR is 1. Chemistry sodium 132, potassium 4.6, chloride 97, BUN 15, creatinine 0.82, random glucose 110. Calcium is 8.7. IMAGING Imaging studies show his left elbow x-ray to have no evidence of fracture. Head CT scan no acute findings. Knee x-ray mildly depressed medial tibial plateau fracture. This is the left knee. Lower extremity CT mildly depressed medial tibial plateau fracture with lipohemaarthrosis. No dislocation. PT. was admitted for the followin. Left tibial plateau fracture. 2. Fall. 3. History of COPD. 4. Debility. 5. Hypertension. 6. History of cardiovascular disease and transient ischemic attacks. 7. Leukocytosis, mild. 8. Hyponatremia, mild. 9. Anemia. 10. Seizure disorder 11. UTI During the hospitalization, the following took place: Pt. admitted, put on appropriate pain management. Ortho consulted. S/P fall with Left tibial plateau fracture appreciated ortho input, non operative tx recommended, hinged brace pt. mostly wc bound at facility, required one assist to transfer. PT was ordered, did well with therapy pain management ordered, pain well controlled bowel regimen ordered Hx of seizures, ordered, Seizure prec., and continued home meds Was put on Protonix for PUD prophylaxis and Sequential compression devices/ Lovenox for deep venous thrombosis prophylaxis Noted with Leukocytosis and fever UA/UC positive for leukocyte esterase and mild bacteriuria-immature growth started on Cipro 250 mg by mouth every 12 x 3 days tolerated abx well, no more fever x 24 hours. No urinary symptoms continued home meds Cleared for discharge by orthopedic NAHED felt pt. needed more help. SNF recommended d/w CM, SNF arranged after discussing with pt's POA Discharged to SNF in stable condition Instructed to: F/U ortho 2 weeks Activity-NWB to left leg Diet-heart healthy Pt Condition on Discharge: Stable Discharge Disposition: Discharge to SNF Discharge Instructions DIET: Follow Instructions for: Heart Healthy Diet Activities you can perform: Non Weight Bearing Follow up Referrals: Orthopedics - 2 Weeks @ [facility] with Stephen Moses MD New Medications: Ciprofloxacin (Cipro) 250 Mg Tab 250 MG PO Q12HR for Infection for 3 Days, #5 TAB Continued Medications: Acetaminophen (Acetaminophen) 325 Mg Capsule 1 TAB PO PRN for PAIN SCALE 1 TO 7 Albuterol 18 GM Inh (Ventolin Hfa 18 GM Inh) 90 Mcg/Act Aer 2 PUFF INH TID PRN for SHORTNESS OF BREATH, #1 INHALER 0 Refills Alendronate (Alendronate) 70 Mg Tab 70 MG PO Q7D for Osteporosis Treatment, #4 TAB 0 Refills Atorvastatin (Atorvastatin) 20 Mg Tab 20 MG PO HS for Cholesterol Management, #30 TAB 0 Refills Calcium Carbonate-Cholecalciferol (Calcium 600 with Vitamin D) 600-400 mg-Unit Tab 1 TAB PO DAILY for Calcium Supplement, TAB 0 Refills Carbamazepine (Carbamazepine) 200 Mg Tab 300 MG PO BID, #60 TAB 0 Refills Clopidogrel (Clopidogrel) 75 Mg Tab 75 MG PO DAILY for Blood Clot Prevention, #30 TAB 0 Refills Docusate Sodium (Docusate Sodium) 100 Mg Cap 100 MG PO DAILY for CONSTIPATION, #60 CAP 0 Refills Ferrous Sulfate (Ferrous Sulfate) 325 Mg (65 Mg Iron) Tablet 325 MG PO TIDPC for Nutritional Supplement, #90 TAB 0 Refills Fluticasone-Vilanterol Inh (Breo Ellipta Inh) 100-25 Mcg/Act Inh 1 PUFF INH DAILY, #1 INHALER 0 Refills Use daily at the same time. Gabapentin (Gabapentin) 300 Mg Cap 300 MG PO TID, #90 CAP 0 Refills Lactic Acid (Ammonium Lactate) (Ammonium Lactate) 12% Lotn 1 APPLIC TOPICAL BID, #225 ML 0 Refills Levetiracetam (Levetiracetam) 500 Mg Tab 500 MG PO TID for Control Seizures, #60 TAB 0 Refills Levothyroxine (Levothyroxine) 50 Mcg Tab 50 MCG PO DAILY for Thyroid, #30 TAB 0 Refills Lisinopril (Lisinopril) 5 Mg Tab 5 MG PO DAILY, #30 TAB Mirabegron (Myrbetriq) 50 Mg Tab 50 MG PO DAILY for Urinary Symptom Managemen, #30 TAB 0 Refills Montelukast (Montelukast) 10 Mg Tab 10 MG PO HS, #30 TAB 0 Refills Multiple Vitamins W/ Minerals (Preservision-Lutein) 1 Cap 1 CAP PO DAILY for Nutritional Supplement, CAP 0 Refills Nystatin (Topical) (Nyata) 100,000 Unit/Gram Pow Oxycodone-Acetaminophen (Oxycodone-Acetaminophen) 5-325 mg Tab 1 TAB PO q6h PRN for PAIN SCALE 1 TO 5, #28 TAB (This prescription has been renewed) Pantoprazole (Pantoprazole) 20 Mg Tab 20 MG PO DAILY for Reflux, #30 TAB 0 Refills Polyethylene Glycol 3350 Powder (Polyethylene Glycol 3350 Powder) 17 Gram Pow 17 GM PO DAILY for Constipation, #1 BOTTLE 0 Refills Prochlorperazine Maleate (Prochlorperazine Maleate) 10 Mg Tab 10 MG PO TID PRN for NAUSEA OR VOMITING, TAB 0 Refills Propranolol (Propranolol) 10 Mg Tab 10 MG PO Q12HR, #60 TAB 0 Refills Pyridoxine (Vitamin B-6) 50 Mg Tab 50 MG PO DAILY for Nutritional Supplement, #30 TAB 0 Refills Zinc Oxide (Topical) (Boudreauxs Butt Paste) 16 % Oin Delaney CrumpP Mar 08, 2017 09:58
--- NOTE | 2017-03-08 10:02 | HHI.PR ---
Subjective Subjective Remarks awake, oriented x 3 sitting up in chair left knee pain is 0 at this time no fever x 24 hours no urinary symptoms no cp, no sob no cough eating well states he spoke to POA and prefers to go to SNF to do more rehab Review of Systems Constitutional Constitutional Remarks 12 point ros completed, negative except as noted above Vitals/Results Vital Signs Vital Signs Date Time Temp Pulse Resp B/P (MAP) Pulse Ox O2 Delivery O2 Flow Rate FiO2 03/08/17 03:40 97.1 99 17 130/60 (83) 92 03/07/17 23:06 96.7 71 18 101/42 (61) 95 03/07/17 20:00 98.7 67 16 119/47 (71) 99 03/07/17 17:00 126/54 (78) 03/07/17 16:10 98.8 69 18 95/43 (60) 96 03/07/17 12:00 98.7 78 18 152/54 (86) 96 CBC/BMP: 03/07/17 1654 03/07/17 1654 Lab Results Laboratory Tests Test 03/07/17 16:54 White Blood Count 11.4 TH/MM3 Red Blood Count 3.16 MIL/MM3 Hemoglobin 9.8 GM/DL Hematocrit 29.2 % Mean Corpuscular Volume 92.6 FL Mean Corpuscular Hemoglobin 31.2 PG Mean Corpuscular Hemoglobin Concent 33.7 % Red Cell Distribution Width 14.4 % Platelet Count 258 TH/MM3 Mean Platelet Volume 7.6 FL Blood Urea Nitrogen 19 MG/DL Creatinine 0.85 MG/DL Random Glucose 127 MG/DL Calcium Level 8.2 MG/DL Sodium Level 133 MEQ/L Potassium Level 4.1 MEQ/L Chloride Level 98 MEQ/L Carbon Dioxide Level 27.4 MEQ/L Anion Gap 8 MEQ/L Estimat Glomerular Filtration Rate 85 ML/MIN Physical Exam General General Appearance: Well Developed, Well Nourished, No Acute Distress, Comfortable Eyes Eye Exam: Pupils Equal, Pupils Reactive Ears & Nose Ears & Nose Exam: Nasal Mucosa Lyle Throat Throat Exam: Oral Mucosa [place] & Moist Neck Neck Exam: Neck Supple, Trachea Midline Pulmonary Resp Exam: No Distress Cardiology CV Exam: Regular, Good Perfusion Gastrointestinal/Abdomen GI Exam: Soft, Non-Tender, Bowel Sounds Present, Non-Distended Musculoskeletal MS Remarks Left knee in hinged brace, mild left knee swelling Integumentary Skin Exam: Warm, Dry Extremeties Extremities Exam: Pedal Pulses Palpable, Trace Edema Neurologic Neuro Exam: Alert, Awake, Oriented, Speech Clear, Reed Or Wind Instrument Repairer Equal Psychiatric Psych Exam: Appropriate Responses VTE Prophylaxis VTE Prophylaxis Meds: Lovenox Assessment/Plan Assessment/Plan ASSESSMENT/PLAN 1. Left tibial plateau fracture. 2. Fall. 3. History of COPD. 4. Debility. 5. Hypertension. 6. History of cardiovascular disease and transient ischemic attacks. 7. Leukocytosis, mild. 8. Hyponatremia, mild. 9. Anemia. 10. Seizure disorder 11. UTI Plan S/P fall with Left tibial plateau fracture appreciate ortho input, non operative tx recommended, hinged brace pt. mostly wc bound at facility continue with PT pain management bowel regimen Seizure prec. continue home meds Protonix for PUD prophylaxis Sequential compression devices/Lovenox for deep venous thrombosis prophylaxis Leukocytosis, not going up no fever x 24 hours UA/UC positive for leukocyte esterase and mild bacteriuria-immature growth continue Cipro 250 mg by mouth every 12 x 3 days continue home meds Clear for discharge by orthopedic d/w CM, has SNF arranged Discharge to SNF today F/U ortho 2 weeks Activity-NWB to left leg Diet-heart healthy D/W RN D/W Dr. Brewer D/W Pt. D/W CM This pt. was seen by myself and Dr. Brewer, this note is written on his behalf. Discharge Minutes: 45 Delaney Crump Mar 08, 2017 10:02
[2017-03-08] MEDS ORDERED: VANCOMYCIN INJ 1,000 MG in SODIUM CHLOR 0.9% 250 ML INJ 250 ML IV ONE (11:15)
[2017-03-08 12:00] VITALS: BP 125/64; PULSE 68; RESP 17; TEMP 97.1; O2SAT 96
[2017-03-08 16:00] VITALS: BP 135/53; PULSE 86; RESP 18; TEMP 99.1; O2SAT 98
[2017-03-08] MEDS: MONTELUKAST SODIUM 10 MG TAB PO SCH (19:41)
[2017-03-08] MEDS: ATORVASTATIN 20 MG TAB PO SCH (19:41)
[2017-03-08] MEDS: ENOXAPARIN SODIUM 40 MG/0.4 ML SYRINGE SQ SCH (19:41)
[2017-03-08 20:10] VITALS: BP 154/73; PULSE 81; RESP 18; TEMP 99.8; O2SAT 97
[2017-03-09] VITALS: BP 151/67; PULSE 70; RESP 16; TEMP 98.7; O2SAT 96
[2017-03-09] MEDS: LEVOTHYROXINE SODIUM 50 MCG TAB PO SCH (04:56)
[2017-03-09 08:00] VITALS: BP 149/60; PULSE 76; RESP 17; TEMP 98.8; O2SAT 96
[2017-03-09] MEDS: PT OWN MYRBETRIQ 50 MG PO SCH (09:00)
[2017-03-09] MEDS: SODIUM CHLORIDE 0.9% FLUSH 10 ML FLUSH IV FLUSH SCH ×2 (09:00→21:23)
[2017-03-09] MEDS: PROPRANOLOL HCL 10 MG TAB PO SCH ×2 (09:09→21:20)
[2017-03-09] MEDS: levETIRAcetam 500 MG TAB PO SCH ×3 (09:10→18:04)
[2017-03-09] MEDS: CALCIUM/VITAMIN D 250 MG/125 U TAB PO SCH (09:10)
[2017-03-09] MEDS: LISINOPRIL 5 MG TAB PO SCH (09:10)
[2017-03-09] MEDS: GABAPENTIN 300 MG CAP PO SCH ×3 (09:10→18:05)
[2017-03-09] MEDS: DOCUSATE SODIUM 50 MG/SENNA 8.6 MG TAB PO SCH ×2 (09:10→21:21)
[2017-03-09] MEDS: PANTOPRAZOLE SOD 20 MG DELAYED RELEASE TAB PO SCH (09:10)
[2017-03-09] MEDS: FERROUS SULFATE 325 MG (65 MG ELEMENTAL IRON) TAB PO SCH ×3 (09:14→18:05)
[2017-03-09] MEDS: FLUTICASONE 100 MCG/VILANTEROL 25 MCG INHALER INH SCH (09:18)
[2017-03-09] MEDS: ALBUTEROL SULFATE 90 MCG/ACT HFA 8 GM INHALER INH PRN (09:18)
[2017-03-09] MEDS ORDERED: Vancomycin Consult Pharmacy 1 EA OTHER SCH (10:00)
--- NOTE | 2017-03-09 11:30 | HHI.PR ---
Subjective Subjective Remarks awake, oriented x 3 sitting up in chair no pain low grade fever, max 99.8 no cp, no sob no cough Review of Systems Constitutional Constitutional Remarks 12 point ros completed, negative except as noted above Vitals/Results Vital Signs Vital Signs Date Time Temp Pulse Resp B/P (MAP) Pulse Ox O2 Delivery O2 Flow Rate FiO2 03/09/17 08:00 98.8 76 17 149/60 (89) 96 03/09/17 00:00 98.7 70 16 151/67 (95) 96 03/08/17 20:10 99.8 81 18 154/73 (100) 97 03/08/17 16:00 99.1 86 18 135/53 (80) 98 03/08/17 12:00 97.1 68 17 125/64 (84) 96 CBC/BMP: 03/07/17 1654 03/07/17 1654 Physical Exam General General Appearance: Well Developed, Well Nourished, No Acute Distress, Comfortable Eyes Eye Exam: Pupils Equal, Pupils Reactive Ears & Nose Ears & Nose Exam: Nasal Mucosa [place] Throat Throat Exam: Oral Mucosa [place] & Moist Neck Neck Exam: Neck Supple, Trachea Midline Pulmonary Resp Exam: No Distress Cardiology CV Exam: Regular, Good Perfusion Gastrointestinal/Abdomen GI Exam: Soft, Non-Tender, Bowel Sounds Present, Non-Distended Musculoskeletal MS Remarks Left knee in hinged brace, mild left knee swelling Integumentary Skin Exam: Warm, Dry Extremeties Extremities Exam: Pedal Pulses Palpable, Trace Edema Neurologic Neuro Exam: Alert, Awake, Oriented, Speech Clear, Airport Guide Equal Psychiatric Psych Exam: Appropriate Responses VTE Prophylaxis VTE Prophylaxis Meds: Lovenox Assessment/Plan Assessment/Plan ASSESSMENT/PLAN 1. Left tibial plateau fracture. 2. Fall. 3. History of COPD. 4. Debility. 5. Hypertension. 6. History of cardiovascular disease and transient ischemic attacks. 7. Leukocytosis, mild. 8. Hyponatremia, mild. 9. Anemia. 10. Seizure disorder 11. UTI-+ MRSA Plan S/P fall with Left tibial plateau fracture appreciate ortho input, non operative tx recommended, hinged brace pt. mostly wc bound at facility continue with PT pain management bowel regimen Seizure prec. continue home meds Protonix for PUD prophylaxis Sequential compression devices/Lovenox for deep venous thrombosis prophylaxis UTI, positive for MRSA Discontinued Cipro Vancomycin 1 g given, pharmacy consultation ID consulted, waiting for input Temp 99.8 max No urinary symptoms continue home meds Clear for discharge by orthopedic Discharge held yesterday due to positive urine culture for MRSA We'll wait for ID input, patient may possibly go home on by mouth antibiotics if okay with ID D/W RN D/W Dr. Brewer D/W Pt. This pt. was seen by myself and Dr. rBewer, this note is written on his behalf. Delaney Crump Mar 09, 2017 11:08
[2017-03-09 12:00] VITALS: BP 139/60; PULSE 71; RESP 17; TEMP 97.5; O2SAT 96
[2017-03-09] MEDS ORDERED: VANCOMYCIN INJ 1,500 MG in SODIUM CHLORID 0.9% 500 ML INJ 500 ML IV SCH (13:00)
--- NOTE | 2017-03-09 14:41 | PD.ID.CON ---
History of Present Illness Service ID Consult Requested By Reason for Consult Evaluation and Mment of MRSA UTI Primary Care Physician Julio Ambrocio M.D. Diagnoses: History of Present Illness is an 86-year-old white male who accidentally slipped in the bathroom and fell at the alf setting. The patient was evaluated in the hospital and was found to have a blunt trauma to the left elbow as well as the left knee. It was found after further testing he has a displaced bicondylar fracture of the left tibia. He was admitted for further evaluation and treatment. The patient is currently resting in the bed. He is awake, pleasant and is secured in a splint left total leg. The patient denies any current headaches, although he states that he did have occasional headaches in the past. He currently denies any chest pain or shortness of breath but states there are times that he gets short of breath in the past. The patient denies any cough. Had been in his normal state of health up until this fall. ID consulted for evaluation and Mment of MRSA UTI. Review of Systems ROS Limitations: Poor Historian Past Family Social History Allergies: Coded Allergies: amoxicillin (Unverified Allergy, Severe, Shortness of Breath, 01/17/17) clavulanic acid (Unverified Allergy, Severe, Shortness of Breath, 01/17/17) imipramine (Unverified Allergy, Severe, SEIZURE, 01/17/17) primidone (Unverified Allergy, Severe, SEIZURE, 01/17/17) Sulfa (Sulfonamide Antibiotics) (Unverified Allergy, Unknown, Rash, ) Past Medical History 1. Arthritis. 2. Asthma. 3. Prostate cancer. 4. Hypertension. 5. Hyperlipidemia. 6. Chest pain. 7. Cardiovascular disease. 8. Chronic obstructive pulmonary disease. 9. Transient ischemic attacks. 10. Hard of hearing. 11. Gastroesophageal reflux disease. 12. Urinary incontinence. 13. Headaches. 14. Bilateral hip fracture. 15. Pelvic fractures. 16. History of seizures. 17. Vertigo. Past Surgical History 1. Percutaneous endoscopic gastrostomy placement in November of 2014 but then removed. 2. Appendectomy. 3. Hardware. 4. Bilateral hip repair. 5. Left ear cancer surgery. 6. Bilateral cataracts. 7. Prostate cancer. 8. Prostatectomy. Reported Medications I attest that I obtained, reviewed, or updated the home meds and current meds ( for name, dose, frequency, route of medications). Reported Meds & Active Scripts Active Oxycodone-Acetaminophen 5-325 mg Tab 1 Tab PO Q6H PRN Lisinopril 5 Mg Tab 5 Mg PO DAILY Reported Ventolin Hfa 18 GM Inh (Albuterol Sulfate) 90 Mcg/Act Aer 2 Puff INH TID PRN Prochlorperazine Maleate 10 Mg Tab 10 Mg PO TID PRN Preservision-Lutein (Multiple Vitamins W/ Minerals) 1 Cap 1 Cap PO DAILY Polyethylene Glycol 3350 Powder (Polyethylene Glycol) 17 Gram Pow 17 Gm PO DAILY Pantoprazole (Pantoprazole Sodium) 20 Mg Tab 20 Mg PO DAILY [place] (Nystatin (Topical)) 100,000 Unit/Gram Pow Gabapentin 300 Mg Cap 300 Mg PO TID Ferrous Sulfate 325 Mg (65 Mg Iron) Tablet 325 Mg PO TIDPC Carbamazepine 200 Mg Tab 300 Mg PO BID Calcium 600 with Vitamin D (Calcium Carbonate-Cholecalciferol) 600-400 mg-Unit Tab 1 Tab PO DAILY Acetaminophen 325 Mg Capsule 1 Tab PO PRN Vitamin B-6 (Pyridoxine HCl) 50 Mg Tab 50 Mg PO DAILY Propranolol (Propranolol HCl) 10 Mg Tab 10 Mg PO Q12HR Myrbetriq (Mirabegron) 50 Mg Tab 50 Mg PO DAILY Montelukast (Montelukast Sodium) 10 Mg Tab 10 Mg PO HS Levothyroxine (Levothyroxine Sodium) 50 Mcg Tab 50 Mcg PO DAILY Levetiracetam 500 Mg Tab 500 Mg PO TID Docusate Sodium 100 Mg Cap 100 Mg PO DAILY Clopidogrel (Clopidogrel Bisulfate) 75 Mg Tab 75 Mg PO DAILY Breo Ellipta Inh (Fluticasone/Vilanterol) 100-25 Mcg/Act Inh 1 Puff INH DAILY Use daily at the same time. [place] Butt Paste (Zinc Oxide (Topical)) 16 % Oin Atorvastatin (Atorvastatin Calcium) 20 Mg Tab 20 Mg PO HS Ammonium Lactate (Lactic Acid (Ammonium Lactate)) 12% Lotn 1 Applic TOPICAL BID Alendronate (Alendronate Sodium) 70 Mg Tab 70 Mg PO Q7D Active Ordered Medications Current Medications Medications (Trade) Dose Ordered Sig/Timbo Route Start Time Stop Time Status Last Admin (NS Flush) 2 ml UNSCH PRN IV FLUSH 03/04/17 23:15 (NS Flush) 2 ml BID IV FLUSH 03/05/17 09:00 03/09/17 09:00 (Tylenol) 650 mg Q4H PRN PO 03/04/17 23:15 03/05/17 22:39 (Zofran Inj) 4 mg Q6H PRN IVP 03/04/17 23:15 03/05/17 04:56 ([place] 5-325 Mg) 1 tab Q4H PRN PO 03/04/17 23:15 03/07/17 09:48 (Morphine Inj) 2 mg Q3H PRN IV PUSH 03/04/17 23:15 03/05/17 04:57 (Narcan Inj) 0.4 mg UNSCH PRN IV PUSH 03/04/17 23:15 (Berenice-Colace) 1 tab BID PO 03/05/17 09:00 03/09/17 09:10 (Milk Of Magnesia Liq) 30 ml Q12H PRN PO 03/04/17 23:15 (Senokot) 17.2 mg Q12H PRN PO 03/04/17 23:15 (Dulcolax Supp) 10 mg DAILY PRN RECTAL 03/04/17 23:15 (Lactulose Liq) 30 ml DAILY PRN PO 03/04/17 23:15 (Proair Hfa Inh) 2 puff TID PRN INH 03/04/17 23:15 03/09/17 09:18 (Lipitor) 20 mg HS PO 03/05/17 21:00 03/08/17 19:41 (Oscal-D 250-125) 250 mg DAILY PO 03/05/17 09:00 03/09/17 09:10 (TEGretol CHEW) 300 mg BID PO 03/05/17 09:00 03/09/17 09:14 (Ferrous Sulfate) 325 mg TIDPC PO 03/05/17 09:30 03/09/17 18:05 (Breo Ellipta 100-25 Inh) 1 puff DAILY INH 03/05/17 09:00 03/09/17 09:18 (Neurontin) 300 mg TID PO 03/05/17 09:00 03/09/17 18:05 (Keppra) 500 mg TID PO 10/1/17 09:00 03/09/17 18:04 (Synthroid) 50 mcg DAILY@0700 PO 03/05/17 07:00 03/09/17 04:56 (Prinivil) 5 mg DAILY PO 03/05/17 09:00 03/09/17 09:10 (Singulair) 10 mg HS PO 03/05/17 21:00 03/08/17 19:41 (Protonix) 20 mg DAILY PO 03/05/17 09:00 03/09/17 09:10 (Inderal) 10 mg Q12HR PO 03/05/17 09:00 03/09/17 09:09 Patient Own Medication PT OWN MED: MYRBET... DAILY PO 03/05/17 09:00 03/09/17 09:00 (Lovenox Inj) 40 mg Q24H SQ 03/05/17 21:45 03/08/17 19:41 Family History Reviewed and NC to the current ID problems. Social History He states that his lives in [facility]. He had tobacco and alcohol abuse in the past. No illicit drugs. Physical Exam Vital Signs Vital Signs Date Time Temp Pulse Resp B/P (MAP) Pulse Ox O2 Delivery O2 Flow Rate FiO2 03/09/17 12:00 97.5 71 17 139/60 (86) 96 03/09/17 08:00 98.8 76 17 149/60 (89) 96 03/09/17 00:00 98.7 70 16 151/67 (95) 96 03/08/17 20:10 99.8 81 18 154/73 (100) 97 03/08/17 16:00 99.1 86 18 135/53 (80) 98 Physical Exam GENERAL: This is a well-nourished, well-developed patient, in no apparent distress. SKIN: No rashes, ecchymoses or lesions. Cool and dry. HEAD: Atraumatic. Normocephalic. No temporal or scalp tenderness. EYES: Pupils equal round and reactive. Extraocular motions intact. No scleral icterus. No injection or drainage. ENT: Nose without bleeding, purulent drainage or septal hematoma. Throat without erythema, tonsillar hypertrophy or exudate. Uvula midline. Airway patent. NECK: Trachea midline. Supple, nontender, no meningeal signs. CARDIOVASCULAR: Regular rate and rhythm without murmurs, gallops, or rubs. RESPIRATORY: Clear to auscultation. Breath sounds equal bilaterally. No wheezes , rales, or rhonchi. GASTROINTESTINAL: Abdomen soft, non-tender, nondistended. MUSCULOSKELETAL: Extremities without clubbing, cyanosis, or edema. No joint tenderness, effusion, or edema noted. No calf tenderness. Negative Homans sign bilaterally. NEUROLOGICAL: Awake and alert. Cranial nerves II through XII intact. Motor and sensory grossly within normal limits. Five out of 5 muscle strength in all muscle groups. Normal speech. Psych cooperative IV line sites with no e.o infection Laboratory Date/Time Source Procedure Growth Status 03/06/17 21:02 Urine Clean Catch Urine Culture - Final S. Aureus Mrsa Complete Result Diagram: 03/07/17 1654 03/07/17 1654 Imaging Last Impressions Lower Extremity CT 03/04/17 0000 Signed Impressions: Service Date/Time: Saturday, March 04, 2017 23:03 - CONCLUSION: 1. Mildly depressed medial tibial plateau fracture with lipohemarthrosis. No dislocation. Gustavo Taylor MD Knee X-Ray 03/04/17 0000 Signed Impressions: Service Date/Time: Saturday, March 04, 2017 20:58 - CONCLUSION: Mildly depressed medial tibial plateau fracture. Manish Carrero MD Head CT 03/04/17 0000 Signed Impressions: Service Date/Time: Saturday, March 04, 2017 21:13 - CONCLUSION: No acute findings. Manish Carrero MD Elbow X-Ray 03/04/17 0000 Signed Impressions: Service Date/Time: Saturday, March 04, 2017 21:07 - CONCLUSION: No evidence of fracture or radiopaque foreign body. Manish Carrero MD Assessment and Plan Assessment and Plan MRSA UTI possible vs contamination gilson Crump DC Vanco IV Straight cath UA. If no fevers overnight and UA does not reflex to culture ok to discharge on no antibiotics. If no fevers and UA negative at 24 hours ok to discharge on no antibiotics. Pt did not have rivera per RN during this admission. palmer Crump Will sign off please call back if any change in clinical condition or questions. Purvi Grimaldo MD Mar 09, 2017 14:41
[2017-03-09 15:36] LABS: BLOOD, URINE TRACE (NEG); GLUCOSE,URINE NEG (NEG); KETONE, URINE NEG (NEG); NITRITE,URINE NEG (NEG); URINE COLOR YELLOW (YELLW/STRAW)
[2017-03-09 15:40] LABS: COMMENT (UR) CATH-CULTURE IND; CULTURE IF INDICATED CATH CULTURE IND
[2017-03-09 16:00] VITALS: BP 137/60; PULSE 70; RESP 17; TEMP 97.1; O2SAT 96
[2017-03-09 20:00] VITALS: BP 177/69; PULSE 100; RESP 17; TEMP 99.2; O2SAT 98
[2017-03-09] MEDS: MONTELUKAST SODIUM 10 MG TAB PO SCH (21:20)
[2017-03-09] MEDS: ATORVASTATIN 20 MG TAB PO SCH (21:20)
[2017-03-09] MEDS: ENOXAPARIN SODIUM 40 MG/0.4 ML SYRINGE SQ SCH (21:44)
[2017-03-09] MEDS: ACETAMINOPHEN/HYDROcodone 325 MG/5 MG TAB PO PRN (23:55)
[2017-03-10] VITALS: BP 188/78; PULSE 77; RESP 16; TEMP 98; O2SAT 95
[2017-03-10 01:00] VITALS: BP 128/58; PULSE 68
[2017-03-10 04:00] VITALS: BP 168/69; PULSE 82; RESP 16; TEMP 97.8; O2SAT 97
[2017-03-10] MEDS: LEVOTHYROXINE SODIUM 50 MCG TAB PO SCH (06:15)
[2017-03-10 08:00] VITALS: BP 158/68; PULSE 78; RESP 18; TEMP 99.2; O2SAT 94
[2017-03-10] MEDS: PT OWN MYRBETRIQ 50 MG PO SCH (09:00)
[2017-03-10] MEDS: SODIUM CHLORIDE 0.9% FLUSH 10 ML FLUSH IV FLUSH SCH (09:00)
[2017-03-10] MEDS: PANTOPRAZOLE SOD 20 MG DELAYED RELEASE TAB PO SCH (09:15)
[2017-03-10] MEDS: GABAPENTIN 300 MG CAP PO SCH ×2 (09:15→14:29)
[2017-03-10] MEDS: PROPRANOLOL HCL 10 MG TAB PO SCH (09:15)
[2017-03-10] MEDS: CALCIUM/VITAMIN D 250 MG/125 U TAB PO SCH (09:15)
[2017-03-10] MEDS: LISINOPRIL 5 MG TAB PO SCH (09:15)
[2017-03-10] MEDS: ALBUTEROL SULFATE 90 MCG/ACT HFA 8 GM INHALER INH PRN (09:16)
[2017-03-10] MEDS: FLUTICASONE 100 MCG/VILANTEROL 25 MCG INHALER INH SCH (09:16)
[2017-03-10] MEDS: DOCUSATE SODIUM 50 MG/SENNA 8.6 MG TAB PO SCH (09:16)
[2017-03-10] MEDS: levETIRAcetam 500 MG TAB PO SCH ×2 (09:16→14:29)
[2017-03-10] MEDS: FERROUS SULFATE 325 MG (65 MG ELEMENTAL IRON) TAB PO SCH ×2 (09:35→14:29)
--- NOTE | 2017-03-10 10:17 | HHI.PR ---
Subjective Subjective Remarks awake, oriented x 3 sitting up in chair no pain no cp no sob no fever anxious to go, requesting that I speak to POA Review of Systems Constitutional Constitutional Remarks 12 point ros completed, negative except as noted above Vitals/Results Vital Signs Vital Signs Date Time Temp Pulse Resp B/P (MAP) Pulse Ox O2 Delivery O2 Flow Rate FiO2 03/10/17 04:00 97.8 82 16 168/69 (102) 97 03/10/17 01:00 68 128/58 (81) 03/10/17 00:00 98.0 77 16 188/78 (114) 95 03/09/17 20:00 99.2 100 17 177/69 (105) 98 03/09/17 16:00 97.1 70 17 137/60 (85) 96 03/09/17 12:00 97.5 71 17 139/60 (86) 96 CBC/BMP: 03/07/17 1654 03/10/17 0625 Lab Results Laboratory Tests Test 03/09/17 15:15 03/10/17 06:25 Urine Color YELLOW Urine Turbidity CLEAR Urine pH 6.0 Urine Specific [place] 1.016 Urine Protein 30 mg/dL Urine Glucose (UA) NEG mg/dL Urine Ketones NEG mg/dL Urine Occult Blood TRACE Urine Nitrite NEG Urine Bilirubin NEG Urine Urobilinogen LESS THAN 2.0 MG/DL Urine Leukocyte Esterase TRACE Urine RBC 2 /hpf Urine WBC 12 /hpf Urine Amorphous Sediment RARE Microscopic Urinalysis Comment CATH-CULTURE IND Creatinine 0.69 MG/DL Estimat Glomerular Filtration Rate 109 ML/MIN Microbiology Microbiology 03/09/17 Urine Culture, Received Pending Physical Exam General General Appearance: Well Developed, Well Nourished, No Acute Distress, Comfortable Eyes Eye Exam: Pupils Equal, Pupils Reactive Ears & Nose Ears & Nose Exam: Nasal Mucosa [place] Throat Throat Exam: Oral Mucosa [place] & Moist Neck Neck Exam: Neck Supple, Trachea Midline Pulmonary Resp Exam: No Distress Cardiology CV Exam: Regular, Good Perfusion Gastrointestinal/Abdomen GI Exam: Soft, Non-Tender, Bowel Sounds Present, Non-Distended Musculoskeletal MS Remarks Left knee in hinged brace, mild left knee swelling Integumentary Skin Exam: Warm, Dry Extremeties Extremities Exam: Pedal Pulses Palpable, Trace Edema Neurologic Neuro Exam: Alert, Awake, Oriented, Speech Clear, Seafood Harvester Equal Psychiatric Psych Exam: Appropriate Responses VTE Prophylaxis VTE Prophylaxis Meds: Lovenox Assessment/Plan Assessment/Plan ASSESSMENT/PLAN 1. Left tibial plateau fracture. 2. Fall. 3. History of COPD. 4. Debility. 5. Hypertension. 6. History of cardiovascular disease and transient ischemic attacks. 7. Leukocytosis, mild. 8. Hyponatremia, mild. 9. Anemia. 10. Seizure disorder 11. UTI-+ MRSA Plan S/P fall with Left tibial plateau fracture appreciate ortho input, non operative tx recommended, hinged brace pt. mostly wc bound at facility continue with PT pain management bowel regimen Seizure prec. continue home meds Protonix for PUD prophylaxis Sequential compression devices/Lovenox for deep venous thrombosis prophylaxis UTI, positive for MRSA Discontinued Cipro Given Vanco, stopped yesterday d/w ID, appreciate input. UC repeated, culture pending. If neg. can go without abx. Requested that Vanco be stopped. No urinary symptoms, no fever continue home meds Clear for discharge by orthopedic Discharge held due to positive urine culture for MRSA waiting for UC, if negative, he will be dc to SNF D/W RN D/W Dr. Brewer/Dr. Grimaldo D/W Pt. This pt. was seen by myself and Dr. Brewer, this note is written on his behalf. Delaney Crump Mar 10, 2017 10:17
[2017-03-10 11:58] VITALS: BP 147/67; PULSE 66; RESP 18; TEMP 99.1; O2SAT 93
[2017-03-10 16:00] VITALS: BP 131/61; PULSE 74; RESP 17; TEMP 97.9; O2SAT 100
[2017-03-12] MEDS ORDERED: PHARMACY ORDERED LAB ONE (12:45)
== END 2017-03-10 16:55 | DRG 563 ==
LOC: NEPD 19:34 → NEDA 22:33 → N06A 03-05 01:34
PROVIDERS: ADMIT Specialist; ATTEND Specialist
DX: S82.142A Displaced bicondylar fracture of left tibia, initial encounter for closed fracture (principal); J44.9 Chronic obstructive pulmonary disease, unspecified; N39.0 Urinary tract infection, site not specified; E87.1 Hypo-osmolality and hyponatremia; B95.62 Methicillin resistant Staphylococcus aureus infection as the cause of diseases classified elsewhere; G40.909 Epilepsy, unspecified, not intractable, without status epilepticus; I73.9 Peripheral vascular disease, unspecified; I10 Essential (primary) hypertension; Z86.73 Personal history of transient ischemic attack (TIA), and cerebral infarction without residual deficits; R53.81 Other malaise; D64.9 Anemia, unspecified; E78.5 Hyperlipidemia, unspecified; I25.10 Atherosclerotic heart disease of native coronary artery without angina pectoris; K21.9 Gastro-esophageal reflux disease without esophagitis; H91.90 Unspecified hearing loss, unspecified ear; Z87.891 Personal history of nicotine dependence; Z85.46 Personal history of malignant neoplasm of prostate; Z99.3 Dependence on wheelchair; Y92.121 Bathroom in nursing home as the place of occurrence of the external cause; W01.0XXA Fall on same level from slipping, tripping and stumbling without subsequent striking against object, initial encounter; M19.90 Unspecified osteoarthritis, unspecified site; R32 Unspecified urinary incontinence
CPT/HCPCS: 12002; 70450; 73080; 73564; 73700; 80048; 81001; 82565; 85025; 85027; 85610; 85730; 87086; 93005; J1650; J2270; J2405; J3370; J7030; J7040; J7050; L1845

== ENCOUNTER → 2017-07-17 | Day surgery (SDC) | payer MEDICARE ==
[~2017-07-17] MED LIST changes: +ACET325C PO; -ACET325T PO; -BIO-POW TOPICAL; +CALC1TAB87 PO; -CALCTAB70 PO; +CIPR250T52 PO; -DOCU100C PO; +DOCU100C15 PO; -FERR325T PO; +FERR325T18 PO; +GABA300C5 PO; +NYST0.1P; +PANT20TA2 PO; +POLY17S PO; +PROC10TA PO; +PROPOFOL 200 MG/20 ML AMP IV ONE; +SODIUM CHLORIDE 0.9% 250 ML ADDBAG IV ONE
== END | disposition home or self-care (01) ==
LOC: ESDC 08:17
PROVIDERS: ATTEND Internal Medicine Gastroenterology
DX: R13.10 Dysphagia, unspecified (principal); R10.13 Epigastric pain; K44.9 Diaphragmatic hernia without obstruction or gangrene; K22.9 Disease of esophagus, unspecified; K22.2 Esophageal obstruction; K29.70 Gastritis, unspecified, without bleeding
CPT/HCPCS: 88305; 88312

== ENCOUNTER 2017-10-17 10:01 | Inpatient (IN) | payer MEDICARE ==
[~2017-10-17] VITALS: Ht 170.2 cm; Wt 79.0 kg
[~2017-10-17 10:01] MED LIST changes: -PROPOFOL 200 MG/20 ML AMP IV ONE; -SODIUM CHLORIDE 0.9% 250 ML ADDBAG IV ONE
[2017-10-17 10:17] VITALS: BP 131/62; PULSE 71; RESP 18; TEMP 99.5; O2SAT 97
[2017-10-17] MEDS ORDERED: SODIUM CHLORIDE 0.9% FLUSH 10 ML FLUSH IV FLUSH PRN ×2 (10:45→14:15)
[2017-10-17] MEDS ORDERED: REGU50PO PO (10:56)
[2017-10-17] MEDS ORDERED: FLUT1SPR5 EACH NARE (10:56)
[2017-10-17] MEDS ORDERED: MULTTAB62 PO (10:56)
[2017-10-17] MEDS ORDERED: ZINC20OI TOPICAL (10:56)
[2017-10-17] MEDS ORDERED: ZANT300T PO (10:56)
[2017-10-17] MEDS ORDERED: PANT40TA3 PO (10:56)
[2017-10-17] MEDS ORDERED: MILKSUS PO (10:56)
[2017-10-17] MEDS ORDERED: ZOLO25TA PO (10:56)
[2017-10-17] MEDS ORDERED: NYST0.1P TOPICAL (10:56)
[2017-10-17] MEDS ORDERED: IPRASOL NEB (10:56)
[2017-10-17] MEDS ORDERED: TYLE325T PO (10:56)
[2017-10-17] MEDS ORDERED: ROBA100S PO (10:56)
[2017-10-17] MEDS ORDERED: LACT237L26 PO (10:56)
[2017-10-17 11:04] LABS: AUTOMATED NEUTROPHIL # 22.8 TH/MM3 (1.8-7.7); BASOPHIL # 0.1 TH/MM3 (0-0.2); BASOPHIL % 0.2 % (0.0-2.0); EOSINOPHIL % 0.1 % (0.0-4.0); HEMATOCRIT 31.7 % (39.0-51.0); HEMOGLOBIN 10.6 GM/DL (13.0-17.0); LYMPH % 8.4 % (9.0-44.0); LYMPHOCYTE # 2.5 TH/MM3 (1.0-4.8); MEAN CELL VOLUME 92.6 FL (80.0-100.0); MEAN CORPUSCULAR HGB CONC 33.4 % (32.0-36.0); MEAN PLATELET VOLUME 8.1 FL (7.0-11.0); MONO % 13.7 % (0.0-8.0); NEUT % 77.6 % (16.0-70.0); PLATELET COUNT 296 TH/MM3 (150-450); RED BLOOD COUNT 3.43 MIL/MM3 (4.50-5.90); WHITE BLOOD COUNT 29.5 TH/MM3 (4.0-11.0)
[2017-10-17 11:14] LABS: INTERNATIONAL NORMALIZED RATIO 1.1 RATIO; PROTHROMBIN TIME - PATIENT 11.3 SEC (9.8-11.6)
[2017-10-17 11:34] LABS: ALBUMIN 2.7 GM/DL (3.4-5.0); ALT (GPT) 15 U/L (12-78); AST (GOT) 15 U/L (15-37); BICARBONATE 21.5 MEQ/L (21.0-32.0); BLOOD UREA NITROGEN 31 MG/DL (7-18); CALCIUM 7.8 MG/DL (8.5-10.1); CHLORIDE 107 MEQ/L (98-107); CREATININE 1.44 MG/DL (0.60-1.30); GLOMERULAR FILTRATION RATE 46 ML/MIN (>89); GLUCOSE,RANDOM 101 MG/DL (74-106); MAGNESIUM 2.4 MG/DL (1.5-2.5); SODIUM (NA) 139 MEQ/L (136-145)
--- NOTE | 2017-10-17 11:51 | RADRPT ---
EXAM DATE/TIME: 10/17/2017 11:13 [facility] COMPARISON: CHEST SINGLE AP, August 17, 2016, 18:32. INDICATIONS : Short of breath with chest pains. MEDICAL HISTORY : None. SURGICAL HISTORY : None. ENCOUNTER: Initial ACUITY: 4 - 6 days PAIN SCORE: 3/10 LOCATION: Bilateral chest FINDINGS: A single view of the chest demonstrates the lungs to be symmetrically aerated without evidence of mas s, infiltrate or effusion. The cardiomediastinal contours are unremarkable. Osseous structures are intact. CONCLUSION: No acute disease. Shane Pro MD on October 17, 2017 at 11:48 Board Certified Radiologist. This report was verified electronically.
--- NOTE | 2017-10-17 11:51 | RADRPT ---
EXAM DATE/TIME: 10/17/2017 11:07 [facility] COMPARISON: CT BRAIN W/O CONTRAST, March 04, 2017, 21:13. INDICATIONS : Dizzy,confused RADIATION DOSE: 56.35 CTDIvol (mGy) MEDICAL HISTORY : Seizures. Cardiovascular disease Chronic obstructive pulmonary disease.Hypertension,prostate cancer SURGICAL HISTORY : Prostatectomy. Appendectomy. ENCOUNTER: Initial ACUITY: 1 day PAIN SCALE: 6/10 LOCATION: cranial TECHNIQUE: Multiple contiguous axial images were obtained of the head. Using automated exposure control and adj ustment of the mA and/or kV according to patient size, radiation dose was kept as low as reasonably a chievable to obtain optimal diagnostic quality images. DICOM format image data is available electro nically for review and comparison. 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 There is compensatory enlargement of the posterior horns of the later al ventricles stable from prior exam. No evidence of midline shift, mass lesion, hemorrhage or acute infarction. No extra-axial fluid collections are seen. POSTERIOR FOSSA: The cerebellum and brainstem are intact. The 4th ventricle is midline. The cerebellopontine angle i s unremarkable. EXTRACRANIAL: The visualized portion of the orbits is intact. SKULL: The calvaria is intact. No evidence of skull fracture. CONCLUSION: 1. No acute intracranial abnormality or significant interval change. Kwesi Humphreys MD on October 17, 2017 at 11:45 Board Certified Radiologist. This report was verified electronically.
[2017-10-17 11:53] LABS: ALKALINE PHOSPHATASE 57 U/L (45-117); TOTAL PROTEIN 6.9 GM/DL (6.4-8.2); TROPONIN I LESS THAN 0.02 NG/ML (0.02-0.05)
[2017-10-17 12:03] LABS: BANDS 6 % (0-6); LYMPHOCYTES 9 % (9-44); MONOCYTES 14 % (0-8); NEUTROPHIL # MANUAL DIFF 22.7 TH/MM3 (1.8-7.7); POLYS (SEG NEUTROPHILS) 71 % (16-70); TOTAL BILIRUBIN ADULT 0.4 MG/DL (0.2-1.0)
[2017-10-17 12:04] LABS: OVALOCYTES 1+ (NORMAL)
[2017-10-17 13:07] VITALS: BP 131/56; PULSE 79; RESP 19; O2SAT 97
--- NOTE | 2017-10-17 13:09 | PD ---
HPI Chief Complaint: Altered Mental Status Time Seen by Provider: 10:30 Travel History International Travel<30 days: No Contact w/Intl Traveler<30days: No Traveled to known affect area: No History of Present Illness HPI Patient presents to the emergency department for altered mental status currently walled into someone else's room at the assisted living facility and can find his way back to his room. Reporting a headache and chronic neck pain and diarrhea nonbloody he denies chest pain, fever, chills, shortness of breath , abdominal pain, nausea, vomiting, dysuria, but reports increased urination. Denies bloody stool. PFSH Past Medical History Arthritis: Yes Asthma: Yes Autoimmune Disease: No Blood Disorders: No Anxiety: No Depression: Yes Heart Rhythm Problems: No Cancer: Yes (prostate cancer) Cardiac Catheterization: Yes (UNSURE) Cardiovascular Problems: Yes (HTN) High Cholesterol: Yes Chemotherapy: No Chest Pain: Yes Congestive Heart Failure: No COPD: Yes Cerebrovascular Accident: Yes (TIA) Diabetes: No Diminished Hearing: Yes Endocrine: No Gastrointestinal Disorders: Yes (reflux) GERD: Yes Glaucoma: No Genitourinary: Yes (urinary incontinence) Headaches: Yes Hepatitis: No Hiatal Hernia: No Hypertension: Yes Immune Disorder: No Implanted Vascular Access Dvce: Yes Kidney Stones: No Musculoskeletal: Yes (OK. HIP FX., PELVIC FX.) Neurologic: Yes (hx of seizures, lying flat will make him dizzy hx of vertigo ) Psychiatric: No Reproductive: No Respiratory: Yes (COPD ) Immunizations Current: Yes Migraines: No Myocardial Infarction: No Radiation Therapy: No Renal Failure: No Seizures: Yes Sickle Cell Disease: No Sleep Apnea: No Thyroid Disease: No Ulcer: No Past Surgical History Abdominal Surgery: Yes (peg tube placement november 2014, REMOVED) AICD: No Appendectomy: Yes ( CHILD) Arteriovenous Shunt: No Body Medical Devices: HARDWARE OK. 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) Endocrine Surgery: No Eye Surgery: Yes (ok cataract) Genitourinary Surgery: Yes (prostate cancer removal) Gynecologic Surgery: No Insulin Pump: No Joint Replacement: No Neurologic Surgery: No Oral Surgery: No Pacemaker: No Thoracic Surgery: No Tonsillectomy: Yes Other Surgery: Yes (PROSTATECTOMY 2000) Family History Family Myocardial Infarction: Yes (?FATHER AT 99 Y/O ) Social History Alcohol Use: No Tobacco Use: No Substance Use: No Allergies-Medications (Allergen,Severity, Reaction): Coded Allergies: amoxicillin (Unverified Allergy, Severe, Shortness of Breath, 10/17/17) clavulanic acid (Unverified Allergy, Severe, Shortness of Breath, 10/17/17) imipramine (Unverified Allergy, Severe, SEIZURE, 10/17/17) primidone (Unverified Allergy, Severe, SEIZURE, 10/17/17) Sulfa (Sulfonamide Antibiotics) (Unverified Allergy, Unknown, Rash, ) Reported Meds & Prescriptions Reported Meds & Active Scripts Active Lisinopril 5 Mg Tab 5 Mg PO DAILY Reported Zoloft (Sertraline HCl) 25 Mg Tab 25 Mg PO HS Robafen Dm 100-10 mg/5Ml (Dextromethorphan-Guaifenesin) 100 Mg-10 Mg/5 Ml Syp 10 Ml PO Q6HR PRN Reguloid Powder (Psyllium Seed (with Sugar)) 369 Gm Powder PO DAILY Dissolve 1 teaspoonful in 8 ounces of water daily Zantac (Ranitidine HCl) 300 Mg Tab 300 Mg PO HS Multi-Vitamin/Minerals (Multiple Vitamins W/ Minerals) 1 Tab Tab 1 Tab PO DAILY Milk of Magnesia Liq (Magnesium Hydroxide) 400 Mg/5 Ml Susp 30 Ml PO DAILY PRN Duoneb (Ipratropium-Albuterol Neb) 0.5-2.5 Mg/3 Ml Neb 3 Ml NEB Q12HR PRN Flonase Nasal [place] (Fluticasone Nasal [place]) 50 Mcg/Act [place] 1 [place] EACH NARE DAILY Boost (Lactose-Reduced Food) 0.04 Gram-1 Kcal/Ml Liquid 1 Can PO BID PRN [place]AW[place]Y-FAMILY PROVIDES Tylenol (Acetaminophen) 325 Mg Tab 325 Mg PO Q6H PRN Nyata (Nystatin (Topical)) 100,000 Unit/Gram Pow 1 Applic TOPICAL Q8HR PRN Pantoprazole (Pantoprazole Sodium) 40 Mg Tab 40 Mg PO DAILY Zinc Oxide (Zinc Oxide (Topical)) 20 % Oin 1 Applic TOPICAL Q8HR PRN Ventolin Hfa 18 GM Inh (Albuterol Sulfate) 90 Mcg/Act Aer 2 Puff INH Q8HR PRN Prochlorperazine Maleate 10 Mg Tab 10 Mg PO TID PRN Preservision-Lutein (Multiple Vitamins W/ Minerals) 1 Cap 1 Cap PO DAILY Gabapentin 300 Mg Cap 300 Mg PO TID Ferrous Sulfate 325 Mg (65 Mg Iron) Tablet 325 Mg PO TIDPC Carbamazepine 200 Mg Tab 200 Mg PO BID Calcium 600 with Vitamin D (Calcium Carbonate-Cholecalciferol) 600-400 mg-Unit Tab 1 Tab PO DAILY Acetaminophen 325 Mg Capsule 650 Mg PO DAILY PRN Vitamin B-6 (Pyridoxine HCl) 50 Mg Tab 50 Mg PO DAILY Propranolol (Propranolol HCl) 10 Mg Tab 10 Mg PO Q12HR Myrbetriq (Mirabegron) 50 Mg Tab 50 Mg PO DAILY Montelukast (Montelukast Sodium) 10 Mg Tab 10 Mg PO HS Levothyroxine (Levothyroxine Sodium) 50 Mcg Tab 50 Mcg PO DAILY Levetiracetam 500 Mg Tab 500 Mg PO TID Docusate Sodium 100 Mg Cap 100 Mg PO DAILY Clopidogrel (Clopidogrel Bisulfate) 75 Mg Tab 75 Mg PO DAILY Breo Ellipta Inh (Fluticasone/Vilanterol) 100-25 Mcg/Act Inh 1 Puff INH DAILY Use daily at the same time. Atorvastatin (Atorvastatin Calcium) 20 Mg Tab 20 Mg PO HS Alendronate (Alendronate Sodium) 70 Mg Tab 70 Mg PO Q7D Review of Systems Except as stated in HPI: all other systems reviewed are Neg Physical Exam Narrative GENERAL: No acute distress. SKIN: Focused skin assessment warm/dry. HEAD: Atraumatic. Normocephalic. EYES: Pupils equal and round. No scleral icterus. No injection or drainage. ENT: No nasal bleeding or discharge. Mucous membranes pink and moist. NECK: Trachea midline. No JVD. CARDIOVASCULAR: Regular rate and rhythm. No murmur appreciated. RESPIRATORY: No accessory muscle use. Clear to auscultation. Breath sounds equal bilaterally. GASTROINTESTINAL: Abdomen soft, non-tender, distended. Black stool (guaiac not positive, sent for hemoccult in lab) MUSCULOSKELETAL: No obvious deformities. No clubbing. No cyanosis. No edema. NEUROLOGICAL: Awake and alert. No obvious cranial nerve deficits. Motor grossly within normal limits. Normal speech. Oriented to person, time, place PSYCHIATRIC: Appropriate mood and affect; insight and judgment normal. Data Data Last Documented VS Vital Signs Date Time Temp Pulse Resp B/P (MAP) Pulse Ox O2 Delivery O2 Flow Rate FiO2 10/17/17 13:07 79 19 131/56 (81) 97 10/17/17 10:58 Room Air 10/17/17 10:17 99.5 Orders Orders Electrocardiogram (10/17/17 10:42) Complete Blood Count With Diff (10/17/17 10:42) Comprehensive Metabolic Panel (10/17/17 10:42) Prothrombin Time / Inr (Pt) (10/17/17 10:42) Act Partial Throm Time (Ptt) (10/17/17 10:42) Urinalysis - C+S If Indicated (10/17/17 10:42) Blood Culture (10/17/17 10:42) Chest, Single Ap (10/17/17 10:42) Ct Brain W/O Iv Contrast(Rout) (10/17/17 10:42) Blood Glucose (10/17/17 10:42) Ecg Monitoring (10/17/17 10:42) Iv Access Insert/Monitor (10/17/17 10:42) Oximetry (10/17/17 10:42) Sodium Chloride 0.9% Flush (Ns Flush) (10/17/17 10:45) B-Type Natriuretic Peptide (10/17/17 10:42) Ckmb (Isoenzyme) Profile (10/17/17 10:42) Magnesium (Mg) (10/17/17 10:42) Troponin I (10/17/17 10:42) C Diff Toxin Pcr (10/17/17 10:42) Occult Blood (Hemoccult) Stool (10/17/17 10:42) Thyroid Stimulating Hormone (10/17/17 10:42) Lactic Acid (10/17/17 12:44) Blood Culture (10/17/17 12:44) ^ Straight Catheter (10/17/17 12:44) Urine Culture (10/17/17 13:00) Vancomycin For Oral Use Only (Vancomycin (10/17/17 18:00) Admit Order (Ed Use Only) (10/17/17 14:01) Labs Laboratory Tests Test 10/17/17 10:44 10/17/17 10:50 10/17/17 13:00 White Blood Count 29.5 TH/MM3 Red Blood Count 3.43 MIL/MM3 Hemoglobin 10.6 GM/DL Hematocrit 31.7 % Mean Corpuscular Volume 92.6 FL Mean Corpuscular Hemoglobin 31.0 PG Mean Corpuscular Hemoglobin Concent 33.4 % Red Cell Distribution Width 14.0 % Platelet Count 296 TH/MM3 Mean Platelet Volume 8.1 FL Neutrophils (%) (Auto) 77.6 % Lymphocytes (%) (Auto) 8.4 % Monocytes (%) (Auto) 13.7 % Eosinophils (%) (Auto) 0.1 % Basophils (%) (Auto) 0.2 % Neutrophils # (Auto) 22.8 TH/MM3 Lymphocytes # (Auto) 2.5 TH/MM3 Monocytes # (Auto) 4.0 TH/MM3 Eosinophils # (Auto) 0.0 TH/MM3 Basophils # (Auto) 0.1 TH/MM3 CBC Comment AUTO DIFF Differential Total Cells Counted 100 Neutrophils % (Manual) 71 % Band Neutrophils % 6 % Lymphocytes % 9 % Monocytes % 14 % Neutrophils # (Manual) 22.7 TH/MM3 Differential Comment FINAL DIFF MANUAL Platelet Estimate NORMAL Platelet Morphology Comment NORMAL Ovalocytes 1+ Prothrombin Time 11.3 SEC Prothromb Time International Ratio 1.1 RATIO Activated Partial Thromboplast Time 29.2 SEC Blood Urea Nitrogen 31 MG/DL Creatinine 1.44 MG/DL Random Glucose 101 MG/DL Total Protein 6.9 GM/DL Albumin 2.7 GM/DL Calcium Level 7.8 MG/DL Magnesium Level 2.4 MG/DL Alkaline Phosphatase 57 U/L Aspartate Amino Transf (AST/SGOT) 15 U/L Alanine Aminotransferase (ALT/SGPT) 15 U/L Total Bilirubin 0.4 MG/DL Sodium Level 139 MEQ/L Potassium Level 4.4 MEQ/L Chloride Level 107 MEQ/L Carbon Dioxide Level 21.5 MEQ/L Anion Gap 11 MEQ/L Estimat Glomerular Filtration Rate 46 ML/MIN Total Creatine Kinase 32 U/L Troponin I LESS THAN 0.02 NG/ML B-Type Natriuretic Peptide 214 PG/ML Thyroid Stimulating Hormone 3rd Gen 2.280 uIU/ML Stool C. difficile Toxin (PCR) POSITIVE Stl C. difficile Toxin Epiderm 027 PRESUMPTIVE NEGATIVE Urine Color YELLOW Urine Turbidity HAZY Urine pH 5.0 Urine Specific [place] 1.019 Urine Protein 30 mg/dL Urine Glucose (UA) NEG mg/dL Urine Ketones NEG mg/dL Urine Occult Blood TRACE Urine Nitrite NEG Urine Bilirubin NEG Urine Urobilinogen LESS THAN 2.0 MG/DL Urine Leukocyte Esterase TRACE Urine RBC 6 /hpf Urine WBC 4 /hpf Urine Bacteria RARE /hpf Microscopic Urinalysis Comment CATH-CULTURE IND Lactic Acid Level 0.8 mmol/L MDM Medical Decision Making Medical Screen Exam Complete: Yes Emergency Medical Condition: Yes Interpretation(s) Labs: Elevated white count, decreased hemoglobin and hematocrit increased creatinine and BUN, UA-rare bacteria, trace LE; increased BNP ECG: SR, rate 76, LAD, RBBB Last Impressions Head CT 10/17/17 1042 Signed Impressions: Service Date/Time: Tuesday, October 17, 2017 11:07 - CONCLUSION: 1. No acute intracranial abnormality or significant interval change. Kwesi Humphreys MD Chest X-Ray 10/17/17 1042 Signed Impressions: Service Date/Time: Tuesday, October 17, 2017 11:13 - CONCLUSION: No acute disease. Shane Pro MD Differential Diagnosis AMS, UTI, ACS, pneumonia, sepsis, GI bleed Narrative Course Patient presents to the emergency department complaint of altered mental status check head CT, chest x-ray, EKG, enzymes, blood culture, UA and urine culture, CBC, chemistry. 1403: Patient given 125 mg p.o. vancomycin and admitted. Sepsis Criteria SIRS Criteria (2 or more): WBC > 62687, < 4000 or > 10% bands Diagnosis Primary Impression: C. difficile diarrhea Admitting Information Admitting Physician Requests: Admit Condition: Stable Cheryl Gutierrez MD October 17, 2017 13:09
[2017-10-17 13:23] LABS: BACTERIA, URINE RARE /hpf; BILIRUBIN, URINE NEG (NEG); BLOOD, URINE TRACE (NEG); GLUCOSE,URINE NEG (NEG); KETONE, URINE NEG (NEG); NITRITE,URINE NEG (NEG); URINE COLOR YELLOW (YELLW/STRAW); URINE LEUKOCYTE ESTERASE TRACE (NEG)
[2017-10-17] MEDS ORDERED: traMADol HCL 50 MG TAB PO PRN (14:15)
[2017-10-17] MEDS ORDERED: LACTULOSE SYRUP 20 GM/30 ML CUP PO PRN (14:15)
[2017-10-17] MEDS ORDERED: NALOXONE HCL 0.4 MG/ML AMP IV PUSH PRN (14:15)
[2017-10-17] MEDS ORDERED: BISACODYL 10 MG SUPP RECTAL PRN (14:15)
[2017-10-17] MEDS ORDERED: ONDANSETRON HCL 4 MG/2 ML VIAL IVP PRN (14:15)
[2017-10-17] MEDS ORDERED: MAGNESIUM HYDROXIDE SUSP 30 ML CUP PO PRN (14:15)
[2017-10-17] MEDS ORDERED: SENNOSIDES 8.6 MG TAB PO PRN (14:15)
[2017-10-17] MEDS: SODIUM CHLOR 0.9% 1000 ML INJ 1,000 ML IV SCH ×2 (14:27→22:28)
[2017-10-17] MEDS ORDERED: ONDANSETRON ODT 4 MG TAB PO PRN (15:00)
[2017-10-17] MEDS ORDERED: RESP: ALBUTEROL 2.5 MG/IPRATROPIUM 0.5 MG NEB (PRN) NEB (15:15)
--- NOTE | 2017-10-17 15:19 | HHI.HP ---
[facility] No Primary Care Physician Admission Diagnosis altered mental status, c diff colitis Diagnoses: Chief Complaint: AMS Travel History International Travel<30 Days: No Contact w/Intl Traveler <30 Da: No Traveled to Known Affected Are: No History of Present Illness 87-year-old male with history of dementia, arthritis, prostate cancer, HTN, HLD , TIA, COPD, GERD, seizures, presents to the ED after being sent from [facility] due to worsening altered mental status and diarrhea. The patient is an extremely poor historian, oriented to self only, and therefore most of the history obtained from the EMR. The patient does explain that he has not quite felt like himself lately. He has difficulty further elaborating on this. He does recall having some diarrhea but cannot quantify or describe the stool. He denies any abdominal pain but reports feeling more bloated than usual. Denies any fever/chills, nausea/vomiting, or urinary complaints. It is reported that the patient is incontinent at baseline. RN in the ER described the stool was dark and loose, but not watery diarrhea and no bright red blood. The patient otherwise denies any headache, lightheadedness, congestion, sore throat, cough, chest pain, or shortness of breath. He states his legs are always a little bit swollen, but denies any calf pain. Denies any other medical complaints at this time. Review of Systems Except as stated in HPI: all other systems reviewed are Neg Past Family Social History Past Medical History Obtained from EMR: dementia arthritis prostate cancer HTN HLD TIA COPD GERD seizures Past Surgical History Obtained from EMR: bilateral cataract removal left ear cancer surgery tonsillectomy PEG tube placement/removal appendectomy TURP bilateral hip fracture repair right carotid endarterectomy Reported Medications Lisinopril 5 Mg Tab 5 Mg PO DAILY Zoloft (Sertraline HCl) 25 Mg Tab 25 Mg PO HS Robafen Dm 100-10 mg/5Ml (Dextromethorphan-Guaifenesin) 100 Mg-10 Mg/5 Ml Syp 10 Ml PO Q6HR PRN Reguloid Powder (Psyllium Seed (with Sugar)) 369 Gm Powder PO DAILY Dissolve 1 teaspoonful in 8 ounces of water daily Zantac (Ranitidine HCl) 300 Mg Tab 300 Mg PO HS Multi-Vitamin/Minerals (Multiple Vitamins W/ Minerals) 1 Tab Tab 1 Tab PO DAILY Milk of Magnesia Liq (Magnesium Hydroxide) 400 Mg/5 Ml Susp 30 Ml PO DAILY PRN Duoneb (Ipratropium-Albuterol Neb) 0.5-2.5 Mg/3 Ml Neb 3 Ml NEB Q12HR PRN Flonase Nasal Whitney (Fluticasone Nasal Whitney) 50 Mcg/Act Whitney 1 Whitney EACH NARE DAILY Boost (Lactose-Reduced Food) 0.04 Gram-1 Kcal/Ml Liquid 1 Can PO BID PRN STRAWBERRY-FAMILY PROVIDES Tylenol (Acetaminophen) 325 Mg Tab 325 Mg PO Q6H PRN Nyata (Nystatin (Topical)) 100,000 Unit/Gram Pow 1 Applic TOPICAL Q8HR PRN Pantoprazole (Pantoprazole Sodium) 40 Mg Tab 40 Mg PO DAILY Zinc Oxide (Zinc Oxide (Topical)) 20 % Oin 1 Applic TOPICAL Q8HR PRN Ventolin Hfa 18 GM Inh (Albuterol Sulfate) 90 Mcg/Act Aer 2 Puff INH Q8HR PRN Prochlorperazine Maleate 10 Mg Tab 10 Mg PO TID PRN Preservision-Lutein (Multiple Vitamins W/ Minerals) 1 Cap 1 Cap PO DAILY Gabapentin 300 Mg Cap 300 Mg PO TID Ferrous Sulfate 325 Mg (65 Mg Iron) Tablet 325 Mg PO TIDPC Carbamazepine 200 Mg Tab 200 Mg PO BID Calcium 600 with Vitamin D (Calcium Carbonate-Cholecalciferol) 600-400 mg-Unit Tab 1 Tab PO DAILY Acetaminophen 325 Mg Capsule 650 Mg PO DAILY PRN Vitamin B-6 (Pyridoxine HCl) 50 Mg Tab 50 Mg PO DAILY Propranolol (Propranolol HCl) 10 Mg Tab 10 Mg PO Q12HR Myrbetriq (Mirabegron) 50 Mg Tab 50 Mg PO DAILY Montelukast (Montelukast Sodium) 10 Mg Tab 10 Mg PO HS Levothyroxine (Levothyroxine Sodium) 50 Mcg Tab 50 Mcg PO DAILY Levetiracetam 500 Mg Tab 500 Mg PO TID Docusate Sodium 100 Mg Cap 100 Mg PO DAILY Clopidogrel (Clopidogrel Bisulfate) 75 Mg Tab 75 Mg PO DAILY Breo Ellipta Inh (Fluticasone/Vilanterol) 100-25 Mcg/Act Inh 1 Puff INH DAILY Use daily at the same time. Atorvastatin (Atorvastatin Calcium) 20 Mg Tab 20 Mg PO HS Alendronate (Alendronate Sodium) 70 Mg Tab 70 Mg PO Q7D Allergies: Coded Allergies: amoxicillin (Unverified Allergy, Severe, Shortness of Breath, 10/17/17) clavulanic acid (Unverified Allergy, Severe, Shortness of Breath, 10/17/17) imipramine (Unverified Allergy, Severe, SEIZURE, 10/17/17) primidone (Unverified Allergy, Severe, SEIZURE, 10/17/17) Sulfa (Sulfonamide Antibiotics) (Unverified Allergy, Unknown, Rash, ) Active Ordered Medications Current Medications Medications (Trade) Dose Ordered Sig/Timbo Route Start Time Stop Time Status Last Admin (NS Flush) 2 ml UNSCH PRN IV FLUSH 10/17/17 10:45 (VANCOMYCIN for oral use only) 125 mg QID PO 10/17/17 18:00 Sodium Chloride 1,000 ml @ 100 mls/hr Q10H IV 10/17/17 14:09 10/17/17 14:27 (NS Flush) 2 ml UNSCH PRN IV FLUSH 10/17/17 14:15 (NS Flush) 2 ml BID IV FLUSH 10/17/17 21:00 (Tylenol) 650 mg Q6H PRN PO 10/17/17 14:15 (Ultram) 50 mg Q4H PRN PO 10/17/17 14:15 (Narcan Inj) 0.4 mg UNSCH PRN IV PUSH 10/17/17 14:15 (Milk Of Magnesia Liq) 30 ml Q12H PRN PO 10/17/17 14:15 (Senokot) 17.2 mg Q12H PRN PO 10/17/17 14:15 (Dulcolax Supp) 10 mg DAILY PRN RECTAL 10/17/17 14:15 (Lactulose Liq) 30 ml DAILY PRN PO 10/17/17 14:15 (Zofran Odt) 4 mg Q6H PRN PO 10/17/17 15:00 Family History Unable to obtain Social History Obtained from EMR: Quit smoking tobacco 25+ years ago Denies alcohol use Denies illicit drug use Physical Exam Vital Signs Vital Signs Date Time Temp Pulse Resp B/P (MAP) Pulse Ox O2 Delivery O2 Flow Rate FiO2 10/17/17 13:07 79 19 131/56 (81) 97 10/17/17 10:58 Room Air 10/17/17 10:21 71 19 Room Air 10/17/17 10:17 99.5 71 18 131/62 (85) 97 Physical Exam GENERAL: Well-nourished, well-developed pleasant elderly male patient in NAD. SKIN: Warm and dry. No rash. HEAD: Normocephalic. Atraumatic. EYES: Pupils equal and round. No scleral icterus. No injection or drainage. ENT: No nasal bleeding or discharge. Mucous membranes dry. NECK: Supple. Trachea midline. CARDIOVASCULAR: Regular rate and rhythm. No murmur appreciated. RESPIRATORY: No accessory muscle use. Clear to auscultation. Breath sounds equal bilaterally. GASTROINTESTINAL: Abdomen soft, slightly distended, nontender. Normoactive bowel sounds x4. MUSCULOSKELETAL: No obvious deformities. 1+ bilateral lower extremity edema. NEUROLOGICAL: Awake and alert, oriented to self only. No obvious cranial nerve deficits. Motor grossly within normal limits. Moves all extremities spontaneously. Normal speech. PSYCHIATRIC: Appropriate mood and affect; insight and judgment limited. Laboratory Laboratory Tests Test 10/17/17 10:44 10/17/17 10:50 10/17/17 13:00 White Blood Count 29.5 Red Blood Count 3.43 Hemoglobin 10.6 Hematocrit 31.7 Mean Corpuscular Volume 92.6 Mean Corpuscular Hemoglobin 31.0 Mean Corpuscular Hemoglobin Concent 33.4 Red Cell Distribution Width 14.0 Platelet Count 296 Mean Platelet Volume 8.1 Neutrophils (%) (Auto) 77.6 Lymphocytes (%) (Auto) 8.4 Monocytes (%) (Auto) 13.7 Eosinophils (%) (Auto) 0.1 Basophils (%) (Auto) 0.2 Neutrophils # (Auto) 22.8 Lymphocytes # (Auto) 2.5 Monocytes # (Auto) 4.0 Eosinophils # (Auto) 0.0 Basophils # (Auto) 0.1 CBC Comment AUTO DIFF Differential Total Cells Counted 100 Neutrophils % (Manual) 71 Band Neutrophils % 6 Lymphocytes % 9 Monocytes % 14 Neutrophils # (Manual) 22.7 Differential Comment FINAL DIFF MANUAL Platelet Estimate NORMAL Platelet Morphology Comment NORMAL Ovalocytes 1+ Prothrombin Time 11.3 Prothromb Time International Ratio 1.1 Activated Partial Thromboplast Time 29.2 Blood Urea Nitrogen 31 Creatinine 1.44 Random Glucose 101 Total Protein 6.9 Albumin 2.7 Calcium Level 7.8 Magnesium Level 2.4 Alkaline Phosphatase 57 Aspartate Amino Transf (AST/SGOT) 15 Alanine Aminotransferase (ALT/SGPT) 15 Total Bilirubin 0.4 Sodium Level 139 Potassium Level 4.4 Chloride Level 107 Carbon Dioxide Level 21.5 Anion Gap 11 Estimat Glomerular Filtration Rate 46 Total Creatine Kinase 32 Troponin I LESS THAN 0.02 B-Type Natriuretic Peptide 214 Thyroid Stimulating Hormone 3rd Gen 2.280 Stool C. difficile Toxin (PCR) POSITIVE Stl C. difficile Toxin Epiderm 027 PRESUMPTIVE NEGATIVE Urine Color YELLOW Urine Turbidity HAZY Urine pH 5.0 Urine Specific [place] 1.019 Urine Protein 30 Urine Glucose (UA) NEG Urine Ketones NEG Urine Occult Blood TRACE Urine Nitrite NEG Urine Bilirubin NEG Urine Urobilinogen LESS THAN 2.0 Urine Leukocyte Esterase TRACE Urine RBC 6 Urine WBC 4 Urine Bacteria RARE Microscopic Urinalysis Comment CATH-CULTURE IND Lactic Acid Level 0.8 Date/Time Source Procedure Growth Status 10/17/17 13:00 Blood Peripheral Aerobic Blood Culture Pending Received 10/17/17 13:00 Blood Peripheral Anaerobic Blood Culture Pending Received 10/17/17 10:50 Stool Stool Stool Occult Blood (JONNA) - Final HEMOCCULT NEGATIVE Complete 10/17/17 13:00 Urine Catheterized Urine Urine Culture Pending Received Result Diagram: 10/17/17 1044 10/17/17 1044 Imaging Last Impressions Head CT 10/17/17 1042 Signed Impressions: Service Date/Time: Tuesday, October 17, 2017 11:07 - CONCLUSION: 1. No acute intracranial abnormality or significant interval change. Kwesi Humphreys MD Chest X-Ray 10/17/17 1042 Signed Impressions: Service Date/Time: Tuesday, October 17, 2017 11:13 - CONCLUSION: No acute disease. MD Janes Dunawayi VTE Risk Assessment Janesi VTE Risk Assessment: Mod/High Risk (score >= 2) Caprini Risk Assessment Model Point Value = 1 Point Value = 2 Point Value = 3 Point Value = 5 Age 41-60 Minor surgery BMI > 25 kg/m2 Swollen legs Varicose veins or History of unexplained or recurrent spontaneous Oral contraceptives or hormone replacement Sepsis (< 1 month) Serious lung disease, including pneumonia (< 1 month) Abnormal pulmonary function Acute myocardial infarction Congestive heart failure (< 1 month) History of inflammatory bowel disease Medical patient at bed rest Age 61-74 Arthroscopic surgery Major open surgery (> 45 min) Laparoscopic surgery (> 45 min) Malignancy Confined to bed (> 72 hours) Immobilizing plaster cast Central venous access Age >= 75 History of VTE Family history of VTE Factor V Leiden Prothrombin [id number] Lupus anticoagulant Anticardiolipin antibodies Elevated serum homocysteine Heparin-induced thrombocytopenia Other congenital or acquired thrombophilia Stroke (< 1 month) Elective arthroplasty Hip, pelvis, or leg fracture Acute spinal cord injury (< 1 month) Prophylaxis Regimen Total Risk Factor Score Risk Level Prophylaxis Regimen 0-1 Low Early ambulation 2 Moderate Order ONE of the following: *Sequential Compression Device (SCD) *Heparin 5000 units SQ BID 3-4 Higher Order ONE of the following medications: *Heparin 5000 units SQ TID *Enoxaparin/Lovenox 40 mg SQ daily (WT < 150 kg, CrCl > 30 mL/min) *Enoxaparin/Lovenox 30 mg SQ daily (WT < 150 kg, CrCl > 10-29 mL/min) *Enoxaparin/Lovenox 30 mg SQ BID (WT < 150 kg, CrCl > 30 mL/min) AND/OR *Sequential Compression Device (SCD) 5 or more Highest Order ONE of the following medications: *Heparin 5000 units SQ TID (Preferred with Epidurals) *Enoxaparin/Lovenox 40 mg SQ daily (WT < 150 kg, CrCl > 30 mL/min) *Enoxaparin/Lovenox 30 mg SQ daily (WT < 150 kg, CrCl > 10-29 mL/min) *Enoxaparin/Lovenox 30 mg SQ BID (WT < 150 kg, CrCl > 30 mL/min) AND *Sequential Compression Device (SCD) Assessment and Plan Assessment and Plan 87-year-old male with history of dementia, arthritis, prostate cancer, HTN, HLD , TIA, COPD, GERD, seizures, presents to the ED after being sent from [facility] due to worsening altered mental status and diarrhea. C.difficile Colitis: with +leukocytosis WBC 29.5. Lactic Acid 0.8. (Does not meet sepsis at this time, afebrile, not tachycardic). Stool C.difficile positive in the ED. -Check abdominal CT -Started on Vancomycin 125mg po qid [id number] -Start lactinex tid -Monitor Is&Os -Supportive treatment with IVF hydration, antiemetics prn GAIL: Cr 1.44 upon arrival, previously 0.69 in . Suspect secondary to dehydration from recent diarrhea. -Continue IVF hydration with NS at 100cc/hr -Avoid nephrotoxins -Hold patient's lisinopril for now -Monitor BMP Metabolic Encephalopathy: suspect secondary to acute infection and dehydration. -Head CT reviewed and unremarkable -CXR reviewed and unremarkable. -continue on antibiotics as above for c.diff -UA abnormal but no overt infection or urinary symptoms at this time, will monitor culture for now -blood cultures collected and pending -monitor neuro checks -seizure precautions -consult PT -monitor for improvement Seizure Disorder: chronic, no reported recent seizures -continue patient's tegretol, keppra, and gabapentin -check tegretol and keppra level -seizure precautions Dementia: chronic -monitor neuro checks HTN/HLD: chronic, BP fairly well controlled currently -continue patient's home meds including propranolol and lipitor -holding patient's lisinopril for now -monitor BP, adjust antihypertensives as needed COPD: chornic, stable, does not appear to be in exacerbation -continue patient's Breo, Singulair, and duonebs prn Hx of TIA and Carotid Stenosis s/p R Endarterectomy: chronic -continue patient's plavix GERD: chronic -continue patient's zantac and protonix DVT Prophylaxis: Heparin sq Discussed Condition With Patient, APARTMENT GROUNDSKEEPER Physician Certification 2 Midnight Certification Type: Admission for Inpatient Services Order for Inpatient Services The services are ordered in accordance with Medicare regulations or non- Medicare payer requirements, as applicable. In the case of services not specified as inpatient-only, they are appropriately provided as inpatient services in accordance with the 2-midnight benchmark. Estimated LOS (days): 3 days is the estimated time the patient will need to remain in the hospital, assuming treatment plan goals are met and no additional complications. Post-Hospital Plan: Not yet determined Leslie Liz PA-C October 17, 2017 15:19
[2017-10-17] MEDS ORDERED: DIATRIZOATE MEGLUM/DIATRIZOATE SOD 9 ML CUP PO ONE ×2 (16:00→17:15)
[2017-10-17 16:30] VITALS: BP 122/60; PULSE 88; RESP 18; TEMP 102.3; O2SAT 95
[2017-10-17] MEDS ORDERED: PILL SPLITTER OTHER PRN (16:30)
[2017-10-17] MEDS: GABAPENTIN 300 MG CAP PO SCH (18:00)
[2017-10-17] MEDS: levETIRAcetam 500 MG TAB PO SCH (18:00)
[2017-10-17] MEDS: VANCOMYCIN 500 MG VIAL (FOR ORAL USE ONLY) PO SCH ×2 (18:00→22:26)
[2017-10-17] MEDS: LACTOBACILLUS ACIDOPHILUS TAB PO SCH (18:00)
[2017-10-17] MEDS: FERROUS SULFATE 325 MG (65 MG ELEMENTAL IRON) TAB PO SCH (18:30)
[2017-10-17 20:00] VITALS: BP 107/55; PULSE 92; RESP 18; TEMP 100.5; O2SAT 93
[2017-10-17] MEDS ORDERED: IOHEXOL 350 MG/ML 10 ML VIAL (for RAD DIAG) IVCONTRAST ONE (20:04)
[2017-10-17 22:00] VITALS: PULSE 82
[2017-10-17] MEDS: SODIUM CHLORIDE 0.9% FLUSH 10 ML FLUSH IV FLUSH SCH (22:24)
[2017-10-17] MEDS: FAMOTIDINE 20 MG TAB PO SCH (22:25)
[2017-10-17] MEDS: MONTELUKAST SODIUM 10 MG TAB PO SCH (22:25)
[2017-10-17] MEDS: PROPRANOLOL HCL 10 MG TAB PO SCH (22:25)
[2017-10-17] MEDS: ATORVASTATIN 20 MG TAB PO SCH (22:25)
[2017-10-17] MEDS: HEPARIN SODIUM - SQ 10,000 UNITS/ML VIAL SQ SCH (22:26)
[2017-10-17] MEDS: carBAMazepine 200 MG TAB PO SCH (22:26)
[2017-10-17] MEDS: ACETAMINOPHEN 325 MG TAB PO PRN (22:27)
[2017-10-17] MEDS: SERTRALINE HCL 50 MG TAB PO SCH (22:27)
--- NOTE | 2017-10-17 23:05 | RADRPT ---
EXAM DATE/TIME: 10/17/2017 19:53 [place] COMPARISON: No previous studies available for comparison. INDICATIONS : Abdomen pain. IV CONTRAST: 75 cc Omnipaque 350 (iohexol) IV ORAL CONTRAST: Partial prescribed oral contrast ingested. RADIATION DOSE: 15.21 CTDIvol (mGy) MEDICAL HISTORY : Cardiovascular disease. Carcinoma, prostate. SURGICAL HISTORY : Prostatectomy. ENCOUNTER: Initial ACUITY: 1 day PAIN SCALE: 5/10 LOCATION: Bilateral abdomen TECHNIQUE: Volumetric scanning of the abdomen and pelvis was performed. Using automated exposure control and ad justment of the mA and/or kV according to patient size, radiation dose was kept as low as reasonably achievable to obtain optimal diagnostic quality images. DICOM format image data is available electro nically for review and comparison. FINDINGS: LOWER LUNGS: The visualized lower lungs are clear. Small hiatal hernia. LIVER: Homogeneous density without lesion. There is no dilation of the biliary tree. No calcified gallston es. SPLEEN: Normal size without lesion. PANCREAS: Within normal limits. KIDNEYS: Normal in size and shape. There is no mass, stone or hydronephrosis. ADRENAL GLANDS: Within normal limits. VASCULAR: There is no aortic aneurysm. BOWEL/MESENTERY: Wall thickening throughout the entire colon but most pronounced within the ascending colon. There is mild stranding of the adjacent fat as well. A trace amount of free fluid is seen adjacent to the asce nding colon. Small bowel is unremarkable. No free air. Stomach is unremarkable. ABDOMINAL WALL: Within normal limits. RETROPERITONEUM: There is no lymphadenopathy. BLADDER: No wall thickening or mass. REPRODUCTIVE: Prostate is surgically absent. INGUINAL: There is no lymphadenopathy or hernia. MUSCULOSKELETAL: Bilateral femoral neck screws and intramedullary rods. CONCLUSION: 1. Gould colitis but most pronounced involving the ascending colon. Manish Jenkins Jr., MD on October 17, 2017 at 22:58 Board Certified Radiologist. This report was verified electronically.
[2017-10-18] VITALS (12 sets, daily range): BP systolic 91–134; BP diastolic 46–60; PULSE 69–111; RESP 17–18; TEMP 97.5–101.2; O2SAT 94–97
[2017-10-18] MEDS: ACETAMINOPHEN 325 MG TAB PO PRN (05:22)
[2017-10-18] MEDS: LEVOTHYROXINE SODIUM 50 MCG TAB PO SCH (05:22)
[2017-10-18] MEDS: SODIUM CHLOR 0.9% 1000 ML INJ 1,000 ML IV SCH ×2 (05:22→20:26)
[2017-10-18 08:29] LABS: AUTOMATED NEUTROPHIL # 34.2 TH/MM3 (1.8-7.7); BASOPHIL % 0.1 % (0.0-2.0); HEMOGLOBIN 9.2 GM/DL (13.0-17.0); LYMPH % 3.6 % (9.0-44.0); LYMPHOCYTE # 1.5 TH/MM3 (1.0-4.8); MEAN CELL VOLUME 93.2 FL (80.0-100.0); MEAN CORPUSCULAR HEMOGLOBIN 30.6 PG (27.0-34.0); MEAN CORPUSCULAR HGB CONC 32.9 % (32.0-36.0); MEAN PLATELET VOLUME 8.4 FL (7.0-11.0); MONO % 13.7 % (0.0-8.0); MONOCYTE # 5.7 TH/MM3 (0-0.9); NEUT % 82.6 % (16.0-70.0); PLATELET COUNT 255 TH/MM3 (150-450); RED BLOOD COUNT 3.01 MIL/MM3 (4.50-5.90); RED CELL DISTRIBUTION WIDTH 14.1 % (11.6-17.2); WHITE BLOOD COUNT 41.4 TH/MM3 (4.0-11.0)
[2017-10-18 08:52] LABS: BICARBONATE 17.2 MEQ/L (21.0-32.0); CALCIUM 7.5 MG/DL (8.5-10.1); CREATININE 1.49 MG/DL (0.60-1.30)
[2017-10-18] MEDS: SODIUM CHLORIDE 0.9% FLUSH 10 ML FLUSH IV FLUSH SCH ×2 (09:00→20:27)
[2017-10-18 09:02] LABS: BANDS 8 % (0-6); LYMPHOCYTES 1 % (9-44); MONOCYTES 3 % (0-8); NEUTROPHIL # MANUAL DIFF 39.7 TH/MM3 (1.8-7.7); POLYS (SEG NEUTROPHILS) 88 % (16-70)
[2017-10-18] MEDS: FERROUS SULFATE 325 MG (65 MG ELEMENTAL IRON) TAB PO SCH ×3 (09:30→18:07)
[2017-10-18] MEDS: FLUTICASONE PROPIONATE 50 MCG/ACT 16 GM NASAL SPRAY EACH NARE SCH (09:50)
[2017-10-18] MEDS: LACTOBACILLUS ACIDOPHILUS TAB PO SCH ×3 (09:50→18:07)
[2017-10-18] MEDS: CLOPIDOGREL 75 MG TAB PO SCH (09:50)
[2017-10-18] MEDS: GABAPENTIN 300 MG CAP PO SCH ×3 (09:50→18:07)
[2017-10-18] MEDS: PROPRANOLOL HCL 10 MG TAB PO SCH (09:50)
[2017-10-18] MEDS: carBAMazepine 200 MG TAB PO SCH ×2 (09:51→20:28)
[2017-10-18] MEDS: HEPARIN SODIUM - SQ 10,000 UNITS/ML VIAL SQ SCH ×2 (09:51→20:29)
[2017-10-18] MEDS: levETIRAcetam 500 MG TAB PO SCH ×3 (09:51→18:07)
[2017-10-18] MEDS: PANTOPRAZOLE SOD 40 MG DELAYED RELEASE TAB PO SCH (09:51)
[2017-10-18] MEDS: VANCOMYCIN 500 MG VIAL (FOR ORAL USE ONLY) PO SCH ×4 (09:51→20:29)
--- NOTE | 2017-10-18 11:34 | HHI.PR ---
Objective Vitals Vital Signs Date Time Temp Pulse Resp B/P (MAP) Pulse Ox O2 Delivery O2 Flow Rate FiO2 10/18/17 07:37 97.5 82 18 92/46 (61) 94 10/18/17 04:00 99.6 88 17 134/60 (84) 96 10/18/17 02:15 98.4 10/18/17 00:00 101.2 82 17 92/52 (65) 94 10/17/17 22:00 82 10/17/17 20:00 100.5 92 18 107/55 (72) 93 10/17/17 16:30 102.3 88 18 122/60 (80) 95 10/17/17 16:07 (81) 10/17/17 13:07 79 19 131/56 (81) 97 I/O 10/17/17 10/17/17 10/17/17 10/18/17 10/18/17 10/18/17 07:00 15:00 23:00 07:00 15:00 23:00 Output Total 100 ml 40 ml Balance -100 ml -40 ml Output Urine Total 100 ml 40 ml # Voids 1 1 1 # Bowel Movements 1 1 Result Diagram: 10/18/17 0728 10/18/17 0728 A/P Assessment and Plan 87-year-old male with history of dementia, arthritis, prostate cancer, HTN, HLD , TIA, COPD, GERD, seizures, presents to the ED after being sent from [facility] due to worsening altered mental status and diarrhea. C.difficile Colitis: with +leukocytosis WBC 29.5 blood pressure trended down hypotensive with worsening WBC with underlying sepsis -abdominal CT showed 87-year-old male with history of dementia, arthritis, prostate cancer, HTN, HLD, TIA, COPD, GERD, seizures, presents to the ED after being sent from [facility] due to worsening altered mental status and diarrhea. C.difficile Colitis: with +leukocytosis WBC 29.5. Lactic Acid 0.8. (Does not meet sepsis at this time, afebrile, not tachycardic). Stool C.difficile positive in the ED. -Check abdominal CT showed pancolitis worsening on the ascending colon -Started on Vancomycin 125mg po qid x 10days - will add Flagyl to regimen secondary to worsening leukocytosis -Start lactinex tid If the obesity continues to worsen consider consulting infectious disease. -Monitor Is & Os -Supportive treatment with IVF hydration, antiemetics prn Acute renal failure secondary dehydration due to diarrhea superimposed on chronic kidney disease stage Cr 1.44 upon arrival, previously 0.69 in . - IV fluid hydration and avoid nephrotoxins. Continue hold lisinopril due to hypotension and acute renal failure. Continue monitor BMPs. Acute metabolic Encephalopathy: suspect secondary to acute infection and dehydration. -Head CT reviewed and unremarkable, neuro status slowly improving. -continue on antibiotics as above for c.diff -UA abnormal but no overt infection or urinary symptoms at this time, will monitor culture for now -blood cultures collected and pending -continue to monitor neuro checks Seizure Disorder: chronic, no reported recent seizures -continue patient's tegretol, keppra, and gabapentin -check tegretol and keppra level -seizure precautions Dementia: chronic -monitor neuro checks HTN/HLD: chronic, hypotensive readings this a.m. due to dehydration diarrhea and sepsis - hold propanolol and lisinopril. -Continue Lipitor for hyperlipidemia. COPD: chornic, stable, does not appear to be in exacerbation -continue patient's Breo, Singulair, and duonebs prn Hx of TIA and Carotid Stenosis s/p R Endarterectomy: chronic -continue patient's plavix GERD: chronic -continue patient's zantac and protonix Chronic anemia-monitor hemoglobin. DVT Prophylaxis: Heparin sq Discharge Planning return back to [place] when medically stable Azul Davis MD October 18, 2017 11:34
[2017-10-18] MEDS ORDERED: SODIUM CHLOR 0.9% 1000 ML INJ 1,000 ML IV ONE (11:45)
[2017-10-18] MEDS: FLUTICASONE 100 MCG/VILANTEROL 25 MCG INHALER INH SCH (12:29)
[2017-10-18] MEDS: metroNIDAZOLE 500 MG TAB PO SCH ×2 (12:29→18:07)
[2017-10-18] MEDS: ATORVASTATIN 20 MG TAB PO SCH (20:28)
[2017-10-18] MEDS: FAMOTIDINE 20 MG TAB PO SCH (20:28)
[2017-10-18] MEDS: MONTELUKAST SODIUM 10 MG TAB PO SCH (20:28)
[2017-10-18] MEDS: SERTRALINE HCL 50 MG TAB PO SCH (20:29)
--- NOTE | 2017-10-18 22:51 | EKG ---
Date Performed: 10/17/2017 Time Performed: 11:38:20 PTAGE: 87 years EKG: Sinus rhythm MARKED LEFT AXIS DEVIATION RIGHT BUNDLE BRANCH BLOCK ABNORMAL ECG PREVIOUS TRACING : 03/05/2017 04.50 Since the previous tracing, no significant change noted DOCTOR: Alan Lentz Interpretating Date/Time 10/18/2017 22:49:00
[2017-10-19] VITALS (11 sets, daily range): BP systolic 89–129; BP diastolic 44–80; PULSE 74–98; RESP 16–20; TEMP 97.6–99.5; O2SAT 94–100
[2017-10-19] MEDS: LEVOTHYROXINE SODIUM 50 MCG TAB PO SCH (05:03)
[2017-10-19] MEDS: SODIUM CHLOR 0.9% 1000 ML INJ 1,000 ML IV SCH (05:04)
[2017-10-19] MEDS: ACETAMINOPHEN 325 MG TAB PO PRN (05:04)
[2017-10-19] MEDS: FERROUS SULFATE 325 MG (65 MG ELEMENTAL IRON) TAB PO SCH ×3 (08:08→17:18)
[2017-10-19] MEDS: metroNIDAZOLE 500 MG TAB PO SCH ×3 (08:08→17:18)
[2017-10-19] MEDS: CLOPIDOGREL 75 MG TAB PO SCH (08:08)
[2017-10-19] MEDS: PANTOPRAZOLE SOD 40 MG DELAYED RELEASE TAB PO SCH (08:08)
[2017-10-19] MEDS: GABAPENTIN 300 MG CAP PO SCH (08:08)
[2017-10-19] MEDS: carBAMazepine 200 MG TAB PO SCH ×2 (08:08→23:45)
[2017-10-19] MEDS: HEPARIN SODIUM - SQ 10,000 UNITS/ML VIAL SQ SCH ×2 (08:08→23:45)
[2017-10-19] MEDS: LACTOBACILLUS ACIDOPHILUS TAB PO SCH ×3 (08:08→17:18)
[2017-10-19] MEDS: VANCOMYCIN 500 MG VIAL (FOR ORAL USE ONLY) PO SCH ×4 (08:08→23:45)
[2017-10-19] MEDS: levETIRAcetam 500 MG TAB PO SCH ×3 (08:08→17:18)
[2017-10-19] MEDS: SODIUM CHLORIDE 0.9% FLUSH 10 ML FLUSH IV FLUSH SCH ×2 (08:09→23:21)
[2017-10-19] MEDS: FLUTICASONE 100 MCG/VILANTEROL 25 MCG INHALER INH SCH (08:09)
[2017-10-19] MEDS: FLUTICASONE PROPIONATE 50 MCG/ACT 16 GM NASAL SPRAY EACH NARE SCH (08:09)
[2017-10-19 08:46] LABS: AUTOMATED NEUTROPHIL # 37.3 TH/MM3 (1.8-7.7); BASOPHIL # 0.1 TH/MM3 (0-0.2); BASOPHIL % 0.1 % (0.0-2.0); HEMATOCRIT 27.8 % (39.0-51.0); HEMOGLOBIN 9.1 GM/DL (13.0-17.0); LYMPH % 3.1 % (9.0-44.0); LYMPHOCYTE # 1.4 TH/MM3 (1.0-4.8); MEAN CELL VOLUME 94.4 FL (80.0-100.0); MEAN CORPUSCULAR HEMOGLOBIN 30.9 PG (27.0-34.0); MEAN CORPUSCULAR HGB CONC 32.7 % (32.0-36.0); MEAN PLATELET VOLUME 8.2 FL (7.0-11.0); MONO % 11.8 % (0.0-8.0); MONOCYTE # 5.2 TH/MM3 (0-0.9); PLATELET COUNT 245 TH/MM3 (150-450); RED BLOOD COUNT 2.94 MIL/MM3 (4.50-5.90); RED CELL DISTRIBUTION WIDTH 14.1 % (11.6-17.2); WHITE BLOOD COUNT 43.9 TH/MM3 (4.0-11.0)
[2017-10-19 09:23] LABS: BICARBONATE 14.5 MEQ/L (21.0-32.0); CALCIUM 6.7 MG/DL (8.5-10.1); CREATININE 2.34 MG/DL (0.60-1.30)
[2017-10-19 09:42] LABS: CALCIUM-PROTEIN CORRECTED 7.7 MG/DL (8.5-10.1); TOTAL PROTEIN 5.2 GM/DL (6.4-8.2)
[2017-10-19 10:18] LABS: BANDS 13 % (0-6); LYMPHOCYTES 5 % (9-44); MONOCYTES 10 % (0-8); NEUTROPHIL # MANUAL DIFF 37.3 TH/MM3 (1.8-7.7); POLYS (SEG NEUTROPHILS) 72 % (16-70)
[2017-10-19 10:19] LABS: ACANTHOCYTES 1+ (NORMAL); OVALOCYTES 1+ (NORMAL)
[2017-10-19] MEDS ORDERED: POTASSIUM CHLORIDE 20 MEQ CONTROLLED RELEASE TAB PO ONE (11:00)
[2017-10-19] MEDS ORDERED: SODIUM CHLOR 0.9% 1000 ML INJ 1,000 ML IV ONE ×3 (11:00→20:00)
[2017-10-19] MEDS ORDERED: SODIUM BICARBONATE 650 MG TAB PO ONE (11:00)
[2017-10-19] MEDS ORDERED: CALCIUM GLUCONATE INJ 2 GM in DEXTROSE 5% IN WATER 100ML INJ 100 ML IV ONE ×4 (11:00→18:45)
[2017-10-19] MEDS: SODIUM BICARBONATE 8.4% INJ 100 MEQ in DEXTROSE 5% IN WATE 1000ML INJ 1,000 ML IV SCH ×4 (12:00→23:46)
--- NOTE | 2017-10-19 13:27 | HHI.PR ---
Subjective Remarks Patient seen this morning. Says he is feeling all right. Denies any chest pain or shortness of breath. He denies any abdominal pain. Somnolent, wakes up for exam. Objective Vital Signs Date Time Temp Pulse Resp B/P (MAP) Pulse Ox O2 Delivery O2 Flow Rate FiO2 10/19/17 13:08 108/55 (72) 96 10/19/17 12:00 98.7 74 17 109/58 (75) 95 10/19/17 10:11 91 18 94/51 (65) 94 10/19/17 08:00 85 10/19/17 08:00 98.7 82 17 89/44 (59) 95 10/19/17 04:00 97.6 98 16 98/60 (73) 97 10/19/17 00:00 98.2 96 18 96/52 (67) 97 10/18/17 23:00 96 10/18/17 20:00 98.9 111 18 93/47 (62) 10/18/17 16:44 78 10/18/17 15:38 98.4 78 18 111/55 (73) 95 I/O 10/18/17 10/18/17 10/18/17 10/19/17 10/19/17 10/19/17 07:00 15:00 23:00 07:00 15:00 23:00 Intake Total 999 ml 120 ml Balance 999 ml 120 ml Intake Oral 120 ml IV Total 999 ml # Voids 1 2 # Bowel Movements 1 3 Result Diagram: 10/19/17 0743 10/19/17 0743 Objective Remarks GENERAL: Patient sitting up in bed. Somnolent, wakes up for exam. Appears comfortable. Patient is oriented to year and month. SKIN: Warm and dry. HEAD: Normocephalic. EYES: No scleral icterus. No injection or drainage. NECK: Supple, trachea midline. No JVD. CARDIOVASCULAR: Regular rate and rhythm without murmurs, gallops, or rubs. RESPIRATORY: Breath sounds equal bilaterally. No accessory muscle use. GASTROINTESTINAL: Abdomen soft, non-tender, nondistended. MUSCULOSKELETAL: No cyanosis. BACK: Nontender without obvious deformity. No CVA tenderness. A/P Assessment and Plan 87-year-old male with history of dementia, arthritis, prostate cancer, HTN, HLD , TIA, COPD, GERD, seizures, presents to the ED after being sent from [facility] due to worsening altered mental status and diarrhea. //Severe sepsis //C.difficile Colitis: with +leukocytosis WBC 29.5 blood pressure trended down hypotensive with worsening WBC with underlying sepsis -abdominal CT showed 87-year-old male with history of dementia, arthritis, prostate cancer, HTN, HLD, TIA, COPD, GERD, seizures, presents to the ED after being sent from [facility] due to worsening altered mental status and diarrhea. = 10/19. Leukocytosis of 43.9, worsening kidney failure 2.34. Continue treatment for C. difficile colitis. //C.difficile Colitis: with +leukocytosis WBC 29.5. Lactic Acid 0.8. (Does not meet sepsis at this time, afebrile, not tachycardic). Stool C.difficile positive in the ED. -Check abdominal CT showed pancolitis worsening on the ascending colon -Started on Vancomycin 125mg po qid x 10days - will add Flagyl to regimen secondary to worsening leukocytosis -Start lactinex tid If the obesity continues to worsen consider consulting infectious disease. -Monitor Is & Os -Supportive treatment with IVF hydration, antiemetics prn //Non-anion gap metabolic acidosis. = Likely secondary to bicarb losses from diarrhea. = Bicarb of 14.5. Replace bicarb. Continue to monitor. //MRSA urine. = Likely contaminant. Urinalysis on admission does not appear infectious. Consult ID sepsis, C. difficile, however can address MRSA. As well. //Acute renal failure secondary dehydration due to diarrhea superimposed on chronic kidney disease stage Cr 1.44 upon arrival, previously 0.69 in . - IV fluid hydration and avoid nephrotoxins. Continue hold lisinopril due to hypotension and acute renal failure. Continue monitor BMPs. = Worsening creatinine 2.34 from 1.49 yesterday. Ultrasound kidneys. Bladder scan. IV fluid replacement. Consult nephrology. //Acute metabolic Encephalopathy: suspect secondary to acute infection and dehydration. -Head CT reviewed and unremarkable, neuro status slowly improving. -continue on antibiotics as above for c.diff -UA abnormal but no overt infection or urinary symptoms at this time, will monitor culture for now -blood cultures collected and pending -continue to monitor neuro checks //Seizure Disorder: chronic, no reported recent seizures -continue patient's tegretol, keppra, and gabapentin -check tegretol and keppra level -seizure precautions //Dementia: chronic -monitor neuro checks //HTN/HLD: chronic, hypotensive readings this a.m. due to dehydration diarrhea and sepsis - hold propanolol and lisinopril. -Continue Lipitor for hyperlipidemia. //COPD: chornic, stable, does not appear to be in exacerbation -continue patient's Breo, Singulair, and duonebs prn //Hx of TIA and Carotid Stenosis s/p R Endarterectomy: chronic -continue patient's plavix //GERD: chronic -continue patient's zantac and protonix //Chronic anemia-monitor hemoglobin. Discharge Planning Patient continues with sepsis. Julio Pérez MD October 19, 2017 13:27
--- NOTE | 2017-10-19 16:10 | PD.CONS ---
[facility] Service Nephrology Consult Requested By Dr. Pérez Reason for Consult Acute Renal Failure Primary Care Physician No Primary Care Physician History of Present Illness This is a very pleasant, elderly male patient who was sent from assisted living for altered mental status. He was admitted on the of this month, and tested positive for C diff. Imaging showed ascending colitis, no other abnormal findings noted. His WBC are extremely elevated, was 29K increased to 44K. His renal function at baseline is normal, creatinine was 0.6-0.9 at the end of 2016. On arrival it was 1.44, and has increased to 2.34 today. He has not made much urine but has a condom catheter in place. We were consulted to assist with management. He has a bicarb gtt infusing. The patient is lethargic but able to be aroused. His abdomen is distended and tender. Urine shows RBC, blood, and LE , culture grew MRSA. This admission he is a full code. Of note he was given IV contrast on 10/17. He has also been hypotensive most of this admission. (Isidra Mcdonough) Review of Systems ROS Limitations: Clinical Condition, Altered Mental Status Constitutional: COMPLAINS OF: Fatigue Respiratory: DENIES: Shortness of breath Cardiovascular: DENIES: Chest pain, Lower Extremity Edema Gastrointestinal: COMPLAINS OF: Abdominal pain, Diarrhea, Nausea, DENIES: Constipation, Vomiting, Difficulty Swallowing, Anorexia (Isidra Mcdonough ) Past Family Social History Allergies: Coded Allergies: amoxicillin (Unverified Allergy, Severe, Shortness of Breath, 10/17/17) clavulanic acid (Unverified Allergy, Severe, Shortness of Breath, 10/17/17) imipramine (Unverified Allergy, Severe, SEIZURE, 10/17/17) primidone (Unverified Allergy, Severe, SEIZURE, 10/17/17) Sulfa (Sulfonamide Antibiotics) (Unverified Allergy, Unknown, Rash, ) Past Medical History HTN Hyperlipidemia Prostate Cancer TIA COPD GERD Dementia Seizure history Arthritis Past Surgical History bilateral cataract removal left ear cancer surgery tonsillectomy PEG tube placement/removal appendectomy Prostatectomy bilateral hip fracture repair right carotid endarterectomy Reported Medications Lisinopril 5 Mg Tab 5 Mg PO DAILY Zoloft (Sertraline HCl) 25 Mg Tab 25 Mg PO HS Robafen Dm 100-10 mg/5Ml (Dextromethorphan-Guaifenesin) 100 Mg-10 Mg/5 Ml Syp 10 Ml PO Q6HR PRN Reguloid Powder (Psyllium Seed (with Sugar)) 369 Gm Powder PO DAILY Dissolve 1 teaspoonful in 8 ounces of water daily Zantac (Ranitidine HCl) 300 Mg Tab 300 Mg PO HS Multi-Vitamin/Minerals (Multiple Vitamins W/ Minerals) 1 Tab Tab 1 Tab PO DAILY Milk of Magnesia Liq (Magnesium Hydroxide) 400 Mg/5 Ml Susp 30 Ml PO DAILY PRN Duoneb (Ipratropium-Albuterol Neb) 0.5-2.5 Mg/3 Ml Neb 3 Ml NEB Q12HR PRN Flonase Nasal [place] (Fluticasone Nasal [place]) 50 Mcg/Act [place] 1 [place] EACH NARE DAILY Boost (Lactose-Reduced Food) 0.04 Gram-1 Kcal/Ml Liquid 1 Can PO BID PRN STRAWBERRY-FAMILY PROVIDES Tylenol (Acetaminophen) 325 Mg Tab 325 Mg PO Q6H PRN Nyata (Nystatin (Topical)) 100,000 Unit/Gram Pow 1 Applic TOPICAL Q8HR PRN Pantoprazole (Pantoprazole Sodium) 40 Mg Tab 40 Mg PO DAILY Zinc Oxide (Zinc Oxide (Topical)) 20 % Oin 1 Applic TOPICAL Q8HR PRN Ventolin Hfa 18 GM Inh (Albuterol Sulfate) 90 Mcg/Act Aer 2 Puff INH Q8HR PRN Prochlorperazine Maleate 10 Mg Tab 10 Mg PO TID PRN Preservision-Lutein (Multiple Vitamins W/ Minerals) 1 Cap 1 Cap PO DAILY Gabapentin 300 Mg Cap 300 Mg PO TID Ferrous Sulfate 325 Mg (65 Mg Iron) Tablet 325 Mg PO TIDPC Carbamazepine 200 Mg Tab 200 Mg PO BID Calcium 600 with Vitamin D (Calcium Carbonate-Cholecalciferol) 600-400 mg-Unit Tab 1 Tab PO DAILY Acetaminophen 325 Mg Capsule 650 Mg PO DAILY PRN Vitamin B-6 (Pyridoxine HCl) 50 Mg Tab 50 Mg PO DAILY Propranolol (Propranolol HCl) 10 Mg Tab 10 Mg PO Q12HR Myrbetriq (Mirabegron) 50 Mg Tab 50 Mg PO DAILY Montelukast (Montelukast Sodium) 10 Mg Tab 10 Mg PO HS Levothyroxine (Levothyroxine Sodium) 50 Mcg Tab 50 Mcg PO DAILY Levetiracetam 500 Mg Tab 500 Mg PO TID Docusate Sodium 100 Mg Cap 100 Mg PO DAILY Clopidogrel (Clopidogrel Bisulfate) 75 Mg Tab 75 Mg PO DAILY Breo Ellipta Inh (Fluticasone/Vilanterol) 100-25 Mcg/Act Inh 1 Puff INH DAILY Use daily at the same time. Atorvastatin (Atorvastatin Calcium) 20 Mg Tab 20 Mg PO HS Alendronate (Alendronate Sodium) 70 Mg Tab 70 Mg PO Q7D Active Ordered Medications Current Medications Medications (Trade) Dose Ordered Sig/Timbo Route Start Time Stop Time Status Last Admin (NS Flush) 2 ml UNSCH PRN IV FLUSH 10/17/17 14:15 (NS Flush) 2 ml BID IV FLUSH 10/17/17 21:00 10/18/17 20:27 (Tylenol) 650 mg Q6H PRN PO 10/17/17 14:15 10/19/17 05:04 (Narcan Inj) 0.4 mg UNSCH PRN IV PUSH 10/17/17 14:15 (Milk Of Magnesia Liq) 30 ml Q12H PRN PO 10/17/17 14:15 (Senokot) 17.2 mg Q12H PRN PO 10/17/17 14:15 (Dulcolax Supp) 10 mg DAILY PRN RECTAL 10/17/17 14:15 (Lactulose Liq) 30 ml DAILY PRN PO 10/17/17 14:15 (Zofran Odt) 4 mg Q6H PRN PO 10/17/17 15:00 (Lactinex) 1 tab TID PO 10/17/17 18:00 10/19/17 12:02 (Duoneb Neb) 1 ampule Q4HR NEB PRN NEB 10/17/17 15:15 (Lipitor) 20 mg HS PO 10/17/17 21:00 10/18/17 20:28 (TEGretol) 200 mg BID PO 10/17/17 21:00 10/19/17 08:08 (Plavix) 75 mg DAILY PO 10/18/17 09:00 10/19/17 08:08 (Ferrous Sulfate) 325 mg TIDPC PO 10/17/17 18:30 10/19/17 12:09 (Breo Ellipta 100-25 Inh) 1 puff DAILY INH 10/18/17 09:00 10/19/17 08:09 (Keppra) 500 mg TID PO 10/17/17 18:00 10/19/17 12:02 (Synthroid) 50 mcg DAILY@0600 PO 10/18/17 06:00 10/19/17 05:03 (Singulair) 10 mg HS PO 10/17/17 21:00 10/18/17 20:28 (Protonix) 40 mg DAILY PO 10/18/17 09:00 10/19/17 08:08 (Inderal) 10 mg Q12HR PO 10/17/17 21:00 Future Hold 10/18/17 09:50 (Zoloft) 25 mg HS PO 10/17/17 21:00 10/18/17 20:29 (Flonase Iftikhar Spr) 1 spray DAILY EACH NARE 10/18/17 09:00 10/19/17 08:09 (Pepcid) 20 mg HS PO 10/17/17 21:00 10/18/17 20:28 (Heparin Inj) 5,000 units Q12HR SQ 10/17/17 21:00 10/19/17 08:08 (Pill Splitter) 1 ea UNSCH PRN OTHER 10/17/17 16:30 (Flagyl) 500 mg TID PO 10/18/17 13:00 11/01/17 12:59 10/19/17 12:02 Sodium Bicarbonate 100 meq/Dextrose 1,100 ml @ 125 mls/hr Q8H48M IV 10/19/17 12:00 10/19/17 12:00 (VANCOMYCIN for oral use only) 500 mg QID PO 10/19/17 18:00 Family History Unable to obtain He "doesn't know" 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 (Isidra Mcdonough) Physical Exam Vital Signs Vital Signs Date Time Temp Pulse Resp B/P (MAP) Pulse Ox O2 Delivery O2 Flow Rate FiO2 10/19/17 13:08 108/55 (72) 96 10/19/17 12:00 98.7 74 17 109/58 (75) 95 10/19/17 10:11 91 18 94/51 (65) 94 10/19/17 08:00 85 10/19/17 08:00 98.7 82 17 89/44 (59) 95 10/19/17 04:00 97.6 98 16 98/60 (73) 97 10/19/17 00:00 98.2 96 18 96/52 (67) 97 10/18/17 23:00 96 10/18/17 20:00 98.9 111 18 93/47 (62) 10/18/17 16:44 78 Physical Exam Elderly male, appears chronically ill Resting with eyes closed but follows commands Hard of hearing Dry mucous membranes, No JVD, no edema S1/S2, RRR Wheezing, scattered rhonchi, upper airway mucous Abd round, firm, tender, hyperactive bowel sounds Skin intact Condom catheter in place Laboratory Laboratory Tests Test 10/19/17 07:43 White Blood Count 43.9 Red Blood Count 2.94 Hemoglobin 9.1 Hematocrit 27.8 Mean Corpuscular Volume 94.4 Mean Corpuscular Hemoglobin 30.9 Mean Corpuscular Hemoglobin Concent 32.7 Red Cell Distribution Width 14.1 Platelet Count 245 Mean Platelet Volume 8.2 Neutrophils (%) (Auto) 85.0 Lymphocytes (%) (Auto) 3.1 Monocytes (%) (Auto) 11.8 Eosinophils (%) (Auto) 0.0 Basophils (%) (Auto) 0.1 Neutrophils # (Auto) 37.3 Lymphocytes # (Auto) 1.4 Monocytes # (Auto) 5.2 Eosinophils # (Auto) 0.0 Basophils # (Auto) 0.1 CBC Comment AUTO DIFF Differential Total Cells Counted 100 Neutrophils % (Manual) 72 Band Neutrophils % 13 Lymphocytes % 5 Monocytes % 10 Neutrophils # (Manual) 37.3 Differential Comment FINAL DIFF MANUAL Platelet Estimate NORMAL Platelet Morphology Comment NORMAL Ovalocytes 1+ Acanthocytes 1+ Blood Urea Nitrogen 44 Creatinine 2.34 Random Glucose 108 Total Protein 5.2 Calcium Level 6.7 Sodium Level 143 Potassium Level 3.6 Chloride Level 114 Carbon Dioxide Level 14.5 Anion Gap 15 Estimat Glomerular Filtration Rate 26 Protein Corrected Calcium 7.7 25-Hydroxy Vitamin D Total 28.1 Date/Time Source Procedure Growth Status 10/17/17 13:00 Blood Peripheral Aerobic Blood Culture - Preliminary NO GROWTH IN 2 DAYS Resulted 10/17/17 13:00 Blood Peripheral Anaerobic Blood Culture - Preliminary NO GROWTH IN 2 DAYS Resulted 10/17/17 10:50 Stool Stool Stool Occult Blood (JONNA) - Final HEMOCCULT NEGATIVE Complete 10/17/17 13:00 Urine Catheterized Urine Urine Culture - Final S. Aureus Mrsa Complete (Isidra Mcdonough) Result Diagram: 10/19/17 0743 10/19/17 0743 Imaging Last [address] 10/17/17 1042 Signed Impressions: Service Date/Time: Tuesday, October 17, 2017 11:07 - CONCLUSION: 1. No acute intracranial abnormality or significant interval change. Kwesi Humphreys MD Chest X-Ray 10/17/17 1042 Signed Impressions: Service Date/Time: Tuesday, October 17, 2017 11:13 - CONCLUSION: No acute disease. Shane Pro MD Abdomen/Pelvis CT 10/17/17 0000 Signed Impressions: Service Date/Time: Tuesday, October 17, 2017 19:53 - CONCLUSION: 1. Gould colitis but most pronounced involving the ascending colon. Manish Jenkins Jr., MD (Isidra Mcdonough) Assessment and Plan Problem List: (1) Acute renal failure (ARF) ICD Codes: N17.9 - Acute kidney failure, unspecified Plan: Tiffanie renal function at baseline GAIL most likely due to prerenal azotemia secondary to intravascular volume depletion, may have progressed to ATN He was also given IV contrast two days ago. Urine electrolytes have been ordered Imaging on arrival did not suggest obstruction Have asked for a rivera to be placed, need to monitor urine output Continue bicarb gtt for metabolic acidosis, on D5W wit 100 mEqm, reduce rate to 100 cc/hr; he was given several liters of NS on arrival. Tolerating oral fluids Avoid nephrotoxic agents, renally dose when appropriate Repeat labs in AM with phosphorus level Monitor blood pressure, hold antihypertensives, maintain MAP > 65mmHg (2) Leukocytosis ICD Codes: D72.829 - Elevated white blood cell count, unspecified Status: Resolved Plan: Leukemoid reaction, rule out sepsis Has MRSA in urine, also C diff ID has been consulted (3) C. difficile diarrhea ICD Codes: A04.72 - Enterocolitis due to Clostridium difficile, not specified as recurrent Status: Acute Plan: on PO Vanc and Flagyl Contact precautions (4) Dementia ICD Codes: F03.90 - Dementia Status: Chronic Plan: With encephalopathy due to infection and renal failure continue supportive care, fall precautions (5) COPD (chronic obstructive pulmonary disease) ICD Codes: J44.9 - Chronic obstructive pulmonary disease, unspecified Status: Chronic Plan: Oxygen if needed He is wheezing on exam (6) Seizure disorder ICD Codes: G40.909 - Epilepsy, unspecified, not intractable, without status epilepticus Status: Chronic Plan: On Tegretol and Keppra Seizure precautions (Isidra Mcdonough) Problem List: (1) Acute renal failure (ARF) ICD Codes: N17.9 - Acute kidney failure, unspecified Plan: [place]iffanie renal function at baseline GAIL most likely due to prerenal azotemia secondary to intravascular volume depletion, may have progressed to ATN He was also given IV contrast two days ago. Urine electrolytes have been ordered Imaging on arrival did not suggest obstruction Have asked for a rivera to be placed, need to monitor urine output Continue bicarb gtt for metabolic acidosis, on D5W wit 100 mEqm, reduce rate to 100 cc/hr; he was given several liters of NS on arrival. Tolerating oral fluids Avoid nephrotoxic agents, renally dose when appropriate Repeat labs in AM with phosphorus level Monitor blood pressure, hold antihypertensives, maintain MAP > 65mmHg (2) Leukocytosis ICD Codes: D72.829 - Elevated white blood cell count, unspecified Status: Resolved Plan: Leukemoid reaction, rule out sepsis Has MRSA in urine, also C diff ID has been consulted (3) C. difficile diarrhea ICD Codes: A04.72 - Enterocolitis due to Clostridium difficile, not specified as recurrent Status: Acute Plan: on PO Vanc and Flagyl Contact precautions (4) Dementia ICD Codes: F03.90 - Dementia Status: Chronic Plan: With encephalopathy due to infection and renal failure continue supportive care, fall precautions (5) COPD (chronic obstructive pulmonary disease) ICD Codes: J44.9 - Chronic obstructive pulmonary disease, unspecified Status: Chronic Plan: Oxygen if needed He is wheezing on exam (6) Seizure disorder ICD Codes: G40.909 - Epilepsy, unspecified, not intractable, without status epilepticus Status: Chronic Plan: On Tegretol and Keppra Seizure precautions Assessment and Plan patient was seen and examined. He appears very ill, abdomen is distended. Some high pitched bowel sounds. Anuric. BP low. Leukocytosis is noted. Consider toxic megacolon. Recommend abdominal X ray. IV Flagyl to be started. Consider surgical evaluation, transfer to ICU. Very poor prognosis. Continue bicarbonate drip. (Mookie Garsia MD) Isidra Mcdonough October 19, 2017 16:10 Mookie Garsia MD October 19, 2017 18:24
--- NOTE | 2017-10-19 16:43 | RADRPT ---
EXAM DATE/TIME: 10/19/2017 15:24 [place] COMPARISON: No previous studies available for comparison. EXTERNAL COMPARISON : [facility], CT Abdomen, December 16, 2016 INDICATIONS : Increased BUN/creatinine. MEDICAL HISTORY : Hypertension. Hypercholesterolemia. Chronic obstructive pulmonary disease. Clostridium Difficile 10/22 18. MRSA. ESBL. Seizures. TIA. Gastroesophageal reflux disease. Prostate cancer. SURGICAL HISTORY : Tonsillectomy. Appendectomy. Prostatectomy. Peg tub/removed. TURP. Right hip fracture repair. ENCOUNTER: Initial ACUITY: > 1 year PAIN SCORE: 2/10 LOCATION: Bilateral flank MEASUREMENTS: RIGHT KIDNEY: 10.2 x 4.3 x 5.0 cm LEFT KIDNEY: 11.3 x 4.2 x 5.2 cm FINDINGS: RIGHT KIDNEY: increased echotexture. No hydronephrosis, stone, or mass. LEFT KIDNEY: increased echotexture. No hydronephrosis, stone, or mass. BLADDER: Decompressed There is a small amount of fluid adjacent to the liver. The gallbladder appears to be distended. No definite stones. CONCLUSION: 1. Increased echogenicity of the renal parenchyma bilaterally. This can be seen with chronic medical renal disease. 2. No hydronephrosis. Keo Trevizo MD on October 19, 2017 at 16:40 Board Certified Radiologist. This report was verified electronically.
--- NOTE | 2017-10-19 17:59 | PD.ID.CON ---
History of Present Illness Service Infectious disease Consult Requested By Hospitalist service Reason for Consult Evaluation and management of severe C. difficile infection and MRSA in urine Primary Care Physician No Primary Care Physician Diagnoses: History of Present Illness Patient seen and examined with Dr. Grimaldo This is an 87-year-old male with a past medical history significant for dementia , arthritis, prostate cancer, HTN, HLD, TIA, COPD, GERD, seizures, presented to the ED after being sent from [facility] due to worsening altered mental status and diarrhea. Due to patient's severe dementia, history is obtained from review of electronic medical record. Patient was found to be in sepsis with white count 29.5, fever of 102.[address] scan of the abdomen and pelvis revealed pancolitis most pronounced involving the ascending colon. Urinalysis was significant for MRSA. C diff testing was positive. Patient was started on oral vancomycin. Patient's white count continued to trend upwards and he was started on oral Flagyl and his vancomycin dose was increased. His white count today is 43.9 with left shift and bandemia. He is also found to have acute renal failure with elevated creatinine of 2.34 nephrology was consulted. Patient is acidotic with bicarb of 14.5 and is currently on bicarb drip. Infectious disease consultation has been requested for evaluation and management of severe C. difficile infection and MRSA in the urine. Patient seen and examined. He is currently afebrile. Patient has been hypotensive today. Blood pressure has improved to 109/55 from 89/44 earlier this morning. He appears extremely dry on exam. He can be heard audibly wheezing. Discussed with the nursing staff who states his urine output has been extremely low. He was given IV fluid bolus and is on 125 cc of maintenance fluids. Patient has had 5 blackish green sticky bowel movements today of moderate volume. Patient has previous urine cultures with MRSA. He also has a history of ESBL E. coli in the urine. (Christina Campoverde) Review of Systems Unable to complete 10 point review of systems secondary to patient's cognitive impairment (Christina Campoverde) Past Family Social History Allergies: Coded Allergies: amoxicillin (Unverified Allergy, Severe, Shortness of Breath, 10/17/17) clavulanic acid (Unverified Allergy, Severe, Shortness of Breath, 10/17/17) imipramine (Unverified Allergy, Severe, SEIZURE, 10/17/17) primidone (Unverified Allergy, Severe, SEIZURE, 10/17/17) Sulfa (Sulfonamide Antibiotics) (Unverified Allergy, Unknown, Rash, ) Past Medical History Dementia COPD Hypertension Seizure disorder History of TIAs Hypertension Dyslipidemia Cardiovascular disease GERD Urinary incontinence Prostate cancer History of previous MRSA and ESBL E. coli in urine History of coagulase negative staph bacteremia Hypothyroidism Past Surgical History Percutaneous endoscopic gastrostomy placement in November 2014 status post removal Appendectomy Bilateral hip surgeries with hardware Left ear cancer surgery Bilateral cataracts Prostatectomy Right carotid endarterectomy Tonsillectomy Reported Medications Lisinopril 5 Mg Tab 5 Mg PO DAILY Zoloft (Sertraline HCl) 25 Mg Tab 25 Mg PO HS Robafen Dm 100-10 mg/5Ml (Dextromethorphan-Guaifenesin) 100 Mg-10 Mg/5 Ml Syp 10 Ml PO Q6HR PRN Reguloid Powder (Psyllium Seed (with Sugar)) 369 Gm Powder PO DAILY Dissolve 1 teaspoonful in 8 ounces of water daily Zantac (Ranitidine HCl) 300 Mg Tab 300 Mg PO HS Multi-Vitamin/Minerals (Multiple Vitamins W/ Minerals) 1 Tab Tab 1 Tab PO DAILY Milk of Magnesia Liq (Magnesium Hydroxide) 400 Mg/5 Ml Susp 30 Ml PO DAILY PRN Duoneb (Ipratropium-Albuterol Neb) 0.5-2.5 Mg/3 Ml Neb 3 Ml NEB Q12HR PRN Flonase Nasal [place] (Fluticasone Nasal [place]) 50 Mcg/Act [place] 1 [place] EACH NARE DAILY Boost (Lactose-Reduced Food) 0.04 Gram-1 Kcal/Ml Liquid 1 Can PO BID PRN STRAWBERRY-FAMILY PROVIDES Tylenol (Acetaminophen) 325 Mg Tab 325 Mg PO Q6H PRN Nyata (Nystatin (Topical)) 100,000 Unit/Gram Pow 1 Applic TOPICAL Q8HR PRN Pantoprazole (Pantoprazole Sodium) 40 Mg Tab 40 Mg PO DAILY Zinc Oxide (Zinc Oxide (Topical)) 20 % Oin 1 Applic TOPICAL Q8HR PRN Ventolin Hfa 18 GM Inh (Albuterol Sulfate) 90 Mcg/Act Aer 2 Puff INH Q8HR PRN Prochlorperazine Maleate 10 Mg Tab 10 Mg PO TID PRN Preservision-Lutein (Multiple Vitamins W/ Minerals) 1 Cap 1 Cap PO DAILY Gabapentin 300 Mg Cap 300 Mg PO TID Ferrous Sulfate 325 Mg (65 Mg Iron) Tablet 325 Mg PO TIDPC Carbamazepine 200 Mg Tab 200 Mg PO BID Calcium 600 with Vitamin D (Calcium Carbonate-Cholecalciferol) 600-400 mg-Unit Tab 1 Tab PO DAILY Acetaminophen 325 Mg Capsule 650 Mg PO DAILY PRN Vitamin B-6 (Pyridoxine HCl) 50 Mg Tab 50 Mg PO DAILY Propranolol (Propranolol HCl) 10 Mg Tab 10 Mg PO Q12HR Myrbetriq (Mirabegron) 50 Mg Tab 50 Mg PO DAILY Montelukast (Montelukast Sodium) 10 Mg Tab 10 Mg PO HS Levothyroxine (Levothyroxine Sodium) 50 Mcg Tab 50 Mcg PO DAILY Levetiracetam 500 Mg Tab 500 Mg PO TID Docusate Sodium 100 Mg Cap 100 Mg PO DAILY Clopidogrel (Clopidogrel Bisulfate) 75 Mg Tab 75 Mg PO DAILY Breo Ellipta Inh (Fluticasone/Vilanterol) 100-25 Mcg/Act Inh 1 Puff INH DAILY Use daily at the same time. Atorvastatin (Atorvastatin Calcium) 20 Mg Tab 20 Mg PO HS Alendronate (Alendronate Sodium) 70 Mg Tab 70 Mg PO Q7D Active Ordered Medications Current Medications Medications (Trade) Dose Ordered Sig/Timbo Route Start Time Stop Time Status Last Admin (NS Flush) 2 ml UNSCH PRN IV FLUSH 10/17/17 14:15 (NS Flush) 2 ml BID IV FLUSH 10/17/17 21:00 10/18/17 20:27 (Tylenol) 650 mg Q6H PRN PO 10/17/17 14:15 10/19/17 05:04 (Narcan Inj) 0.4 mg UNSCH PRN IV PUSH 10/17/17 14:15 (Milk Of Magnesia Liq) 30 ml Q12H PRN PO 10/17/17 14:15 (Senokot) 17.2 mg Q12H PRN PO 10/17/17 14:15 (Dulcolax Supp) 10 mg DAILY PRN RECTAL 10/17/17 14:15 (Lactulose Liq) 30 ml DAILY PRN PO 10/17/17 14:15 (Zofran Odt) 4 mg Q6H PRN PO 10/17/17 15:00 (Lactinex) 1 tab TID PO 10/17/17 18:00 10/19/17 17:18 (Duoneb Neb) 1 ampule Q4HR NEB PRN NEB 10/17/17 15:15 (Lipitor) 20 mg HS PO 10/17/17 21:00 10/18/17 20:28 (TEGretol) 200 mg BID PO 10/17/17 21:00 10/19/17 08:08 (Plavix) 75 mg DAILY PO 10/18/17 09:00 10/19/17 08:08 (Ferrous Sulfate) 325 mg TIDPC PO 10/17/17 18:30 10/19/17 17:18 (Breo Ellipta 100-25 Inh) 1 puff DAILY INH 10/18/17 09:00 10/19/17 08:09 (Keppra) 500 mg TID PO 10/17/17 18:00 10/19/17 17:18 (Synthroid) 50 mcg DAILY@0600 PO 10/18/17 06:00 10/19/17 05:03 (Singulair) 10 mg HS PO 10/17/17 21:00 10/18/17 20:28 (Protonix) 40 mg DAILY PO 10/18/17 09:00 10/19/17 08:08 (Inderal) 10 mg Q12HR PO 10/17/17 21:00 Future Hold 10/18/17 09:50 (Zoloft) 25 mg HS PO 10/17/17 21:00 10/18/17 20:29 (Flonase Iftikhar Spr) 1 spray DAILY EACH NARE 10/18/17 09:00 10/19/17 08:09 (Pepcid) 20 mg HS PO 10/17/17 21:00 10/18/17 20:28 (Heparin Inj) 5,000 units Q12HR SQ 10/17/17 21:00 10/19/17 08:08 (Pill Splitter) 1 ea UNSCH PRN OTHER 10/17/17 16:30 (Flagyl) 500 mg TID PO 10/18/17 13:00 11/01/17 12:59 10/19/17 17:18 Sodium Bicarbonate 100 meq/Dextrose 1,100 ml @ 100 mls/hr Q11H IV 10/19/17 12:00 10/19/17 12:00 (VANCOMYCIN for oral use only) 500 mg QID PO 10/19/17 18:00 10/19/17 17:18 Family History Unable to obtain secondary to patient's cognitive impairment Social History Per review of the electronic medical record: Patient is a former cigar smoker. Previously was employed as a lumbar worker. Patient is lives with his in assisted living facility. Denies any alcohol use. (Christina Campoverde) Physical Exam Vital Signs Vital Signs Date Time Temp Pulse Resp B/P (MAP) Pulse Ox O2 Delivery O2 Flow Rate FiO2 10/19/17 15:46 87 10/19/17 13:08 108/55 (72) 96 10/19/17 12:00 98.7 74 17 109/58 (75) 95 10/19/17 10:11 91 18 94/51 (65) 94 10/19/17 08:00 85 10/19/17 08:00 98.7 82 17 89/44 (59) 95 10/19/17 04:00 97.6 98 16 98/60 (73) 97 10/19/17 00:00 98.2 96 18 96/52 (67) 97 10/18/17 23:00 96 10/18/17 20:00 98.9 111 18 93/47 (62) Physical Exam GENERAL: This is a well-nourished, well-developed elderly male patient , INAD. Awake. Able to follow simple commands. Confused. SKIN: No rashes, ecchymoses or lesions. Cool and dry. HEAD: Atraumatic. Normocephalic. No temporal or scalp tenderness. EYES: Pupils equal round and reactive. Extraocular motions intact. No scleral icterus. No injection or drainage. ENT: Nose without bleeding or purulent drainage. Throat without erythema, tonsillar hypertrophy or exudate. Uvula midline. Airway patent. Dry mucous membranes NECK: Trachea midline. No JVD or lymphadenopathy. Supple, nontender, no meningeal signs. CARDIOVASCULAR: Regular rate and rhythm without murmurs, gallops, or rubs. RESPIRATORY: Audibly wheezing. Diminished in all lung ashby. GASTROINTESTINAL: Abdomen firm, distended, tender to palpation. Unable to assess hepato-splenomegaly, or palpable masses secondary to distention. + rebound tenderness. GENITOURINARY: Rivera catheter in place with extremely small amount of bloody urine in the bag. MUSCULOSKELETAL: Extremities without clubbing, cyanosis, or edema. No joint tenderness, effusion, or edema noted. No calf tenderness. NEUROLOGICAL: Awake and alert. Disoriented. Cranial nerves II through XII grossly intact. Motor and sensory grossly within normal limits. No focal neurologic finding appreciated. Normal speech. PSYCHIATRIC: Calm and cooperative. Able to follow simple commands. PIV with no e/o infection. Laboratory Laboratory Tests Test 10/19/17 07:43 White Blood Count 43.9 Red Blood Count 2.94 Hemoglobin 9.1 Hematocrit 27.8 Mean Corpuscular Volume 94.4 Mean Corpuscular Hemoglobin 30.9 Mean Corpuscular Hemoglobin Concent 32.7 Red Cell Distribution Width 14.1 Platelet Count 245 Mean Platelet Volume 8.2 Neutrophils (%) (Auto) 85.0 Lymphocytes (%) (Auto) 3.1 Monocytes (%) (Auto) 11.8 Eosinophils (%) (Auto) 0.0 Basophils (%) (Auto) 0.1 Neutrophils # (Auto) 37.3 Lymphocytes # (Auto) 1.4 Monocytes # (Auto) 5.2 Eosinophils # (Auto) 0.0 Basophils # (Auto) 0.1 CBC Comment AUTO DIFF Differential Total Cells Counted 100 Neutrophils % (Manual) 72 Band Neutrophils % 13 Lymphocytes % 5 Monocytes % 10 Neutrophils # (Manual) 37.3 Differential Comment FINAL DIFF MANUAL Platelet Estimate NORMAL Platelet Morphology Comment NORMAL Ovalocytes 1+ Acanthocytes 1+ Blood Urea Nitrogen 44 Creatinine 2.34 Random Glucose 108 Total Protein 5.2 Calcium Level 6.7 Sodium Level 143 Potassium Level 3.6 Chloride Level 114 Carbon Dioxide Level 14.5 Anion Gap 15 Estimat Glomerular Filtration Rate 26 Protein Corrected Calcium 7.7 25-Hydroxy Vitamin D Total 28.1 Date/Time Source Procedure Growth Status 10/17/17 13:00 Blood Peripheral Aerobic Blood Culture - Preliminary NO GROWTH IN 2 DAYS Resulted 10/17/17 13:00 Blood Peripheral Anaerobic Blood Culture - Preliminary NO GROWTH IN 2 DAYS Resulted 10/17/17 10:50 Stool Stool Stool Occult Blood (JONNA) - Final HEMOCCULT NEGATIVE Complete 10/17/17 13:00 Urine Catheterized Urine Urine Culture - Final S. Aureus Mrsa Complete (Christina Campoverde) Result Diagram: 10/19/17 0743 10/19/17 0743 Imaging Last Impressions Renal Ultrasound 5/17/18 0000 Signed Impressions: Service Date/Time: October 15:24 - CONCLUSION: 1. Increased echogenicity of the renal parenchyma bilaterally. This can be seen with chronic medical renal disease. 2. No hydronephrosis. Keo Trevizo MD Head CT 10/17/17 1042 Signed Impressions: Service Date/Time: Tuesday, October 17, 2017 11:07 - CONCLUSION: 1. No acute intracranial abnormality or significant interval change. Kwesi Humphreys MD Chest X-Ray 10/17/17 1042 Signed Impressions: Service Date/Time: Tuesday, October 17, 2017 11:13 - CONCLUSION: No acute disease. Shane Pro MD Abdomen/Pelvis CT 10/17/17 0000 Signed Impressions: Service Date/Time: Tuesday, October 17, 2017 19:53 - CONCLUSION: 1. Spears colitis but most pronounced involving the ascending colon. Manish Jenkins Jr., MD (Christina Campoverde) Assessment and Plan Assessment and Plan Severe sepsis with leukocytosis with elevated white count of 43.9, acidosis with bicarbonate 14.5, acute renal failure with creatinine of 2.34, hypotension and tachycardia and C. difficile positive diarrhea/colitis -CT of abdomen and pelvis revealed pancolitis Leukocytosis Non-anion gap metabolic acidosis suspect secondary to bicarb loss from ongoing diarrhea -bicarb 14.5 -on bicarb gtt Acute renal failure suspect secondary to hypotension and IV contrast -Given IV fluid bolus. Rivera catheter placed. -Nephrology following Acute metabolic encephalopathy secondary to active infection and dehydration MRSA urine, suspect contaminant/colonization Seizure disorder COPD, questionable acute exacerbation Dementia Hx of TIA GERD Hypertension, currently hypotensive Hypothyroidism RECS: Continue on oral vancomycin and lactobacillus Discontinue oral Flagyl and change to IV Flagyl Stat BMP and lactic acid per sepsis protocol Obtain chest x-ray DuoNeb's 4 times daily Concern for possible aspiration, n.p.o. except for meds. Speech therapy for swallow evaluation Repeat UCX Obtain KUB Monitor kidney function. Avoid nephrotoxic agents. Strict I's and O's Follow-up on culture results until finalized Continue to monitor clinical progress Further recommendations to follow (Christina Campoverde) Assessment and Plan The exam, history, and the medical decision-making described in the above note were completed with the assistance of the mid-level provider. I reviewed and agree with the findings presented. I attest that I had a [id number] encounter with the patient on the same day, and personally performed and documented my assessment and findings in the medical record. Patient appears toxic, lethargic. Awakens on repeated calling. ? Orientation. Concern for aspiration. Hypotensive during day recd fluid bolus but still hypotensive. Has Rivera but not much urine output. RN reports 5 moderate size loose BMs. On exam Lethargic but arousable. Non focal exam. Bilateral wheezing noted. Decreased AE bilateral bases. Abd distended, tense, diffuse rebound tenderness, guarding. No rigidity. Rivera in place. Cooperative A/P Severe Sepsis Severe Cdiff with pancolitis concern for worsening with peritonitis and or megacolon in the interim since last imaging. (Age > 80, Hypoalbuminemia, Acute renal failure stratifies patient into severe Cdiff). MRSA in urine ? contamination. BCX are negative. Acute metabolic encephalopathy: sepsis, metabolic, baseline dementia by history. Acute renal failure (Cr normal last admission on discharge): prerenal, sepsis Low HCO3: sepsis related metabolic acidosis, ongoing diarrhea Recs Continue Flagyl change to IV Continue Vanco oral Start Dificid (severe Cdiff cannot start vanco enema yet as Xray for free air pending) Will consider Vanco enema if no free air. Will consider CT A/P based on Xray abdomen results. If free air or megacolon like features consider STAT surgery consult. STAT CXR STAT lactic acid and BMP. radha Yost to follow these. STAT KUB to r.o free air. repeat UA from new rivera. Patient first UA was a clean catch as rivera just inserted today. Follow CXR if e/o aspiration may need systemic antibiotics. Recd call from : concern for worsening clinical condition. Concur patient needs transfer to ICU and further workup tonight. radha Yost agree to transfer patient to ICU. Radha Cazares [employer] Advisor guest relations associate re: patient condition workup ordered. He will see patient. Consult in chart. Transfer patient to ICU mukund for closer monitoring. will review CT A/P if no acute abdomen recommend Vanco enema due to severe spears colitis. Patient critically ill at very high risk of decompensation. Critical thinking and decision making. (Purvi Grimaldo MD) Christina Campoverde October 19, 2017 17:59 Purvi Grimaldo MD October 19, 2017 19:00
[2017-10-19 18:40] LABS: BICARBONATE 16.8 MEQ/L (21.0-32.0); CALCIUM 7.1 MG/DL (8.5-10.1); CREATININE 2.56 MG/DL (0.60-1.30)
[2017-10-19] MEDS ORDERED: RESP: ALBUTEROL 2.5 MG/3 ML NEB (PRN) NEB (19:00)
--- NOTE | 2017-10-19 19:05 | PD.CONS ---
[facility] Service Critical Care Medicine Consult Requested By Dr. Grimaldo Reason for Consult Critical care management Primary Care Physician No Primary Care Physician History of Present Illness This is an 87-year-old male. Date of admission 10/17/2017. Date of consultation 10/19/2017. Patient with many comorbidities including dementia disorder, TIAs, seizures, prostate cancer, COPD, gastroesophageal reflux disease , hypertension, dyslipidemia, esophageal strictures, left bundle branch block, ventricular arterial disease and atherosclerotic heart disease. History of pill esophagitis/esophageal strictures with history of PEG tube placement. Patient was admitted to the hospital service on 10/17 with diarrhea/abdominal pain. CT abdomen/pelvis revealed pancolitis. Patient originally treated with metronidazole Patient with worsening status with increasing creatinine, WBCs. Infectious disease nephrology consult. Abdomen more distended today and hypotensive with systolic blood pressures in the 80s on the floor. Received 2 L normal saline. Due to clinical status, infectious disease recommended ICU transfer. On evaluation of patient with abdomen firm but not surgical with no rigidity. CT abdomen/pelvis currently pending. Lactate and all laboratories pending at time of dictation. Review of Systems ROS Limitations: Clinical Condition, Altered Mental Status Past Family Social History Allergies: Coded Allergies: amoxicillin (Unverified Allergy, Severe, Shortness of Breath, 10/17/17) clavulanic acid (Unverified Allergy, Severe, Shortness of Breath, 10/17/17) imipramine (Unverified Allergy, Severe, SEIZURE, 10/17/17) primidone (Unverified Allergy, Severe, SEIZURE, 10/17/17) Sulfa (Sulfonamide Antibiotics) (Unverified Allergy, Unknown, Rash, ) Past Medical History Dementia COPD Essential hypertension Strength no disorder History of TIAs Dyslipidemia Atherosclerotic vascular disease GERD Urinary incontinence Prostate cancer Esophageal stricture Right bundle branch block Gastro-esophageal reflux disease History of previous MRSA and ESBL E. coli in urine History of coagulase negative staph bacteremia Hypothyroidism Past Surgical History Percutaneous endoscopic gastrostomy placement in November 2014 status post removal Appendectomy Bilateral hip surgeries with hardware Left ear cancer surgery Bilateral cataracts Prostatectomy/TURP Right carotid endarterectomy Tonsillectomy and adenoidectomy Reported Medications Lisinopril 5 Mg Tab 5 Mg PO DAILY Zoloft (Sertraline HCl) 25 Mg Tab 25 Mg PO HS Robafen Dm 100-10 mg/5Ml (Dextromethorphan-Guaifenesin) 100 Mg-10 Mg/5 Ml Syp 10 Ml PO Q6HR PRN Reguloid Powder (Psyllium Seed (with Sugar)) 369 Gm Powder PO DAILY Dissolve 1 teaspoonful in 8 ounces of water daily Zantac (Ranitidine HCl) 300 Mg Tab 300 Mg PO HS Multi-Vitamin/Minerals (Multiple Vitamins W/ Minerals) 1 Tab Tab 1 Tab PO DAILY Milk of Magnesia Liq (Magnesium Hydroxide) 400 Mg/5 Ml Susp 30 Ml PO DAILY PRN Duoneb (Ipratropium-Albuterol Neb) 0.5-2.5 Mg/3 Ml Neb 3 Ml NEB Q12HR PRN Flonase Nasal [place] (Fluticasone Nasal [place]) 50 Mcg/Act [place] 1 [place] EACH NARE DAILY Boost (Lactose-Reduced Food) 0.04 Gram-1 Kcal/Ml Liquid 1 Can PO BID PRN STRAWBERRY-FAMILY PROVIDES Tylenol (Acetaminophen) 325 Mg Tab 325 Mg PO Q6H PRN Nyata (Nystatin (Topical)) 100,000 Unit/Gram Pow 1 Applic TOPICAL Q8HR PRN Pantoprazole (Pantoprazole Sodium) 40 Mg Tab 40 Mg PO DAILY Zinc Oxide (Zinc Oxide (Topical)) 20 % Oin 1 Applic TOPICAL Q8HR PRN Ventolin Hfa 18 GM Inh (Albuterol Sulfate) 90 Mcg/Act Aer 2 Puff INH Q8HR PRN Prochlorperazine Maleate 10 Mg Tab 10 Mg PO TID PRN Preservision-Lutein (Multiple Vitamins W/ Minerals) 1 Cap 1 Cap PO DAILY Gabapentin 300 Mg Cap 300 Mg PO TID Ferrous Sulfate 325 Mg (65 Mg Iron) Tablet 325 Mg PO TIDPC Carbamazepine 200 Mg Tab 200 Mg PO BID Calcium 600 with Vitamin D (Calcium Carbonate-Cholecalciferol) 600-400 mg-Unit Tab 1 Tab PO DAILY Acetaminophen 325 Mg Capsule 650 Mg PO DAILY PRN Vitamin B-6 (Pyridoxine HCl) 50 Mg Tab 50 Mg PO DAILY Propranolol (Propranolol HCl) 10 Mg Tab 10 Mg PO Q12HR Myrbetriq (Mirabegron) 50 Mg Tab 50 Mg PO DAILY Montelukast (Montelukast Sodium) 10 Mg Tab 10 Mg PO HS Levothyroxine (Levothyroxine Sodium) 50 Mcg Tab 50 Mcg PO DAILY Levetiracetam 500 Mg Tab 500 Mg PO TID Docusate Sodium 100 Mg Cap 100 Mg PO DAILY Clopidogrel (Clopidogrel Bisulfate) 75 Mg Tab 75 Mg PO DAILY Breo Ellipta Inh (Fluticasone/Vilanterol) 100-25 Mcg/Act Inh 1 Puff INH DAILY Use daily at the same time. Atorvastatin (Atorvastatin Calcium) 20 Mg Tab 20 Mg PO HS Alendronate (Alendronate Sodium) 70 Mg Tab 70 Mg PO Q7D Active Ordered Medications Reviewed in EMR Family History Not documented Social History Quit tobacco 25 years ago. No current alcohol. No illicit drug use Physical Exam Vital Signs Vital Signs Date Time Temp Pulse Resp B/P (MAP) Pulse Ox O2 Delivery O2 Flow Rate FiO2 10/19/17 16:00 97.8 87 20 109/55 (73) 97 10/19/17 15:46 87 10/19/17 13:08 108/55 (72) 96 10/19/17 12:00 98.7 74 17 109/58 (75) 95 10/19/17 10:11 91 18 94/51 (65) 94 10/19/17 08:00 85 10/19/17 08:00 98.7 82 17 89/44 (59) 95 10/19/17 04:00 97.6 98 16 98/60 (73) 97 10/19/17 00:00 98.2 96 18 96/52 (67) 97 10/18/17 23:00 96 10/18/17 20:00 98.9 111 18 93/47 (62) Physical Exam GENERAL: 87-year-old male currently resting in bed in no acute distress garbage SKIN: Warm and dry. HEAD: Atraumatic. Normocephalic. EYES: Pupils equal and round. No scleral icterus. No injection or drainage. ENT: No nasal bleeding or discharge. Mucous membranes pink and dry. Oropharynx without erythema or thrush NECK: Trachea midline. No JVD. CARDIOVASCULAR: Regular rate and rhythm. S1, S2. No S4. Without murmur RESPIRATORY: Positive audible and expiratory wheezing appreciated. Symmetrical excursion GASTROINTESTINAL: Abdomen s distended. Tender to palpation worse in the left lower quadrant. Voluntary guarding. No rigidity. Hypoactive bowel sounds are appreciated. MUSCULOSKELETAL: Extremities with trace lower extremity edema NEUROLOGICAL: Awake and alert. No obvious cranial nerve deficits. Motor grossly within normal limits. Five out of 5 muscle strength in the arms and legs. Normal speech. Laboratory Laboratory Tests Test 10/19/17 07:43 10/19/17 17:13 White Blood Count 43.9 Red Blood Count 2.94 Hemoglobin 9.1 Hematocrit 27.8 Mean Corpuscular Volume 94.4 Mean Corpuscular Hemoglobin 30.9 Mean Corpuscular Hemoglobin Concent 32.7 Red Cell Distribution Width 14.1 Platelet Count 245 Mean Platelet Volume 8.2 Neutrophils (%) (Auto) 85.0 Lymphocytes (%) (Auto) 3.1 Monocytes (%) (Auto) 11.8 Eosinophils (%) (Auto) 0.0 Basophils (%) (Auto) 0.1 Neutrophils # (Auto) 37.3 Lymphocytes # (Auto) 1.4 Monocytes # (Auto) 5.2 Eosinophils # (Auto) 0.0 Basophils # (Auto) 0.1 CBC Comment AUTO DIFF Differential Total Cells Counted 100 Neutrophils % (Manual) 72 Band Neutrophils % 13 Lymphocytes % 5 Monocytes % 10 Neutrophils # (Manual) 37.3 Differential Comment FINAL DIFF MANUAL Platelet Estimate NORMAL Platelet Morphology Comment NORMAL Ovalocytes 1+ Acanthocytes 1+ Blood Urea Nitrogen 44 46 Creatinine 2.34 2.56 Random Glucose 108 135 Total Protein 5.2 Calcium Level 6.7 7.1 Sodium Level 143 142 Potassium Level 3.6 3.9 Chloride Level 114 113 Carbon Dioxide Level 14.5 16.8 Anion Gap 15 12 Estimat Glomerular Filtration Rate 26 24 Protein Corrected Calcium 7.7 25-Hydroxy Vitamin D Total 28.1 Lactic Acid Level 1.6 Date/Time Source Procedure Growth Status 10/17/17 13:00 Blood Peripheral Aerobic Blood Culture - Preliminary NO GROWTH IN 2 DAYS Resulted 10/17/17 13:00 Blood Peripheral Anaerobic Blood Culture - Preliminary NO GROWTH IN 2 DAYS Resulted 10/17/17 10:50 Stool Stool Stool Occult Blood (JONNA) - Final HEMOCCULT NEGATIVE Complete 10/17/17 13:00 Urine Catheterized Urine Urine Culture - Final S. Aureus Mrsa Complete Result Diagram: 10/19/17 0743 10/19/17 1713 Imaging Last Impressions Renal Ultrasound 10/19/17 0000 Signed Impressions: Service Date/Time: October 15:24 - CONCLUSION: 1. Increased echogenicity of the renal parenchyma bilaterally. This can be seen with chronic medical renal disease. 2. No hydronephrosis. Keo Trevizo MD Head CT 10/17/17 1042 Signed Impressions: Service Date/Time: Tuesday, October 17, 2017 11:07 - CONCLUSION: 1. No acute intracranial abnormality or significant interval change. Kwesi Humphreys MD Chest X-Ray 10/17/17 1042 Signed Impressions: Service Date/Time: Tuesday, October 17, 2017 11:13 - CONCLUSION: No acute disease. Shane Pro MD Abdomen/Pelvis CT 10/17/17 0000 Signed Impressions: Service Date/Time: Tuesday, October 17, 2017 19:53 - CONCLUSION: 1. Gould colitis but most pronounced involving the ascending colon. 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 There is compensatory enlargement of the posterior horns of the lateral ventricles stable from prior exam Acetaminophen 1 g IV every 8 hours as needed fever Currently on levetiracetam to understand why this does not work 500 mg p.o. 3 times daily, and carbamazepine 200 mg p.o. twice daily Holding gabapentin 300 mg 3 times daily with altered mental status Holding sertraline 25 mg p.o. daily for depression. Resume when clinically indicated CV: Essential hypertension Hyperlipidemia Right bundle branch block Peripheral arterial disease Atherosclerotic vascular disease Echocardiogram 2017 revealed ejection fraction of 55-60%. No regional wall motion abnormality. Mild TR. Holding lisinopril 5 mg p.o. daily/home medication and propranolol 10 mg p.o. twice daily/home medication while hypertensive Currently on atorvastatin 20 mg p.o. daily for dyslipidemia Currently on sterile water with bicarbonate at 100 cc an hour. Received 2 L normal saline floor. Troponin on admission was 0.06 Currently on clopidogrel 75 mg p.o. daily Resp: COPD Nasal cannula to maintain saturations greater than or equal to 92% Incentive spirometry while awake Follow-up on chest x-ray On fluticasone/Vilanterol 1 inhalation daily Placed on albuterol/ipratropium aerosols every 6 hours with albuterol aerosols every 2 hours as needed dyspnea Currently on montelukast 10 mg p.o. daily GI: Gastroesophageal reflux disease History of esophageal stricture History of pill dysphagia History of PEG tube placement status post removal CT abdomen/pelvis on admission revealed pancolitis including the ascending colon. KUB is been ordered today. Will review her CT abdomen/pelvis evaluate for possible megacolon Currently n.p.o. status with NG tube to be placed to low intermittent wall suction Pantoprazole for GI prophylaxis : History of prostate cancer status post TURP Han catheter if indicated Endo: Hypothyroidism Continue levothyroxine 50 mcg p.o. daily. TSH 2.28 on admission Sliding scale insulin if indicated to maintain euglycemia Renal: Acute kidney injury Renal ultrasound revealed increased echogenicity of the kidneys indicative of chronic medical disease. No hydronephrosis. Creatinine currently 2.56. Currently being followed by nephrology Heme: Normocytic anemia Repeat CBC, coags all pending fibrinogen Does not meet transfusion threshold at this time ID: C. difficile colitis Currently on fiaxomicin 200 mg p.o. twice daily 10 days, vancomycin 500 mg p.o. 4 times daily and metronidazole 500 mg IV every 6 hours Lactobacillus per ID Vancomycin in about 250 mg in 200 cc tap water every 6 hours ordered. ID request FEN: Replace electrolytes as clinically indicated MSK: PT evaluate and treat Access Utilized peripheral IV. Central line if indicated- Prophylaxis GI-pantoprazole -DVT -SCD/heparin subcu Level 2 consultation Code Status Full code Discussed Condition With Dr. Grimaldo. Patient. Care plan discussed and all questions answered. Rajesh Benavidez MD October 19, 2017 19:05
[2017-10-19 19:13] LABS: CALCIUM-PROTEIN CORRECTED 7.8 MG/DL (8.5-10.1); TOTAL PROTEIN 5.8 GM/DL (6.4-8.2)
--- NOTE | 2017-10-19 19:23 | RADRPT ---
EXAM DATE/TIME: 10/19/2017 18:17 [facility] COMPARISON: CHEST SINGLE AP, October 17, 2017, 11:13. INDICATIONS : Infiltrate. MEDICAL HISTORY : Hypertension. Hypercholesterolemia. Chronic obstructive pulmonary disease.Clostridium Difficile 8. MRSA. ESBL. Seizures. TIA. Gastroesophageal reflux disease. Prostate cancer. SURGICAL HISTORY : Tonsillectomy. Appendectomy. Prostatectomy. Peg tub/removed. TURP. Right hip fracture repair. ENCOUNTER: Subsequent ACUITY: 3 days PAIN SCORE: 0/10 LOCATION: Bilateral chest FINDINGS: A single view of the chest demonstrates the lungs to be symmetrically aerated without evidence of mas s, infiltrate or effusion. The cardiomediastinal contours are unremarkable. The aorta is calcified. There is degenerative change at the glenohumeral joints being worse on the left. There are persistent areas of collapse in the mid and lower thoracic spine. These were seen previously. CONCLUSION: No acute disease. Yung Green MD on October 19, 2017 at 19:20 Board Certified Radiologist. This report was verified electronically.
--- NOTE | 2017-10-19 19:24 | RADRPT ---
EXAM DATE/TIME: 10/19/2017 18:24 [facility] COMPARISON: No previous studies available for comparison. INDICATIONS : Obstruction. MEDICAL HISTORY : Hypertension. Hypercholesterolemia. Chronic obstructive pulmonary disease.Clostridium Difficile 8. MRSA. ESBL. Seizures. TIA. Gastroesophageal reflux disease. Prostate cancer. SURGICAL HISTORY : Tonsillectomy. Appendectomy. Prostatectomy. Peg tub/removed. TURP. Right hip fracture repair. ENCOUNTER: Subsequent ACUITY: 3 days PAIN SCORE: 0/10 LOCATION: Abdomen. FINDINGS: Supine view of the abdomen was performed. Air seen throughout nondistended segments of small and lar ge bowel. Free air is not seen. Surgical clips are seen in the pelvis. Surgical hardware seen in the proximal femurs bilaterally. CONCLUSION: Nonspecific KUB with air seen throughout the bowel. This is likely secondary to ileus. This pattern i s nonspecific. Yung Green MD on October 19, 2017 at 19:21 Board Certified Radiologist. This report was verified electronically.
[2017-10-19] MEDS ORDERED: RESP: ALBUTEROL 2.5 MG/IPRATROPIUM 0.5 MG NEB (SCH) NEB (20:00)
[2017-10-19] MEDS ORDERED: DIATRIZOATE MEGLUM/DIATRIZOATE SOD 9 ML CUP PO ONE ×2 (20:00→20:50)
[2017-10-19 20:52] LABS: DIRECT BILIRUBIN ADULT 0.1 MG/DL (0.0-0.2); MAGNESIUM 2.1 MG/DL (1.5-2.5)
[2017-10-19 20:54] LABS: CHOLESTEROL/ HDL RATIO 2.21 RATIO; HDL CHOLESTEROL 24.8 MG/DL (40.0-60.0); INDIRECT BILIRUBIN 0.2 MG/DL (0.0-0.8); INTERNATIONAL NORMALIZED RATIO 1.2 RATIO; PROTHROMBIN TIME - PATIENT 11.7 SEC (9.8-11.6); TOTAL BILIRUBIN ADULT 0.3 MG/DL (0.2-1.0); TOTAL PROTEIN 5.7 GM/DL (6.4-8.2)
[2017-10-19] MEDS: FIDAXOMICIN 200 MG TAB PO SCH (21:00)
[2017-10-19] MEDS: CHLORHEXIDINE GLUCONATE 2 % 1 PACK (2 CLOTHS)(taper/protocol) TOPICAL SCH (22:00)
[2017-10-19] MEDS: RESP: ALBUTEROL 2.5 MG/IPRATROPIUM 0.5 MG NEB (SCH) NEB (22:20)
[2017-10-19] MEDS ORDERED: CHLORHEXIDINE GLUCONATE 2 % 1 PACK (2 CLOTHS)(extra cloths) TOPICAL PRN (22:30)
[2017-10-19] MEDS: levETIRAcetam INJ 100 ML IV SCH (23:21)
--- NOTE | 2017-10-19 23:24 | RADRPT ---
EXAM DATE/TIME: 10/19/2017 22:34 [facility] COMPARISON: No previous studies available for comparison. INDICATIONS : Abdominal pain. ORAL CONTRAST: No oral contrast ingested. RADIATION DOSE: 15.39 CTDIvol (mGy) MEDICAL HISTORY : Hypertension. Carcinoma, prostate. SURGICAL HISTORY : Appendectomy. Prostatectomy.TURP. Peg tube, removed. ENCOUNTER: Initial ACUITY: 1 day PAIN SCALE: Non-responsive LOCATION: abdomen TECHNIQUE: Volumetric scanning of the abdomen and pelvis was performed. Using automated exposure control and ad justment of the mA and/or kV according to patient size, radiation dose was kept as low as reasonably achievable to obtain optimal diagnostic quality images. DICOM format image data is available electro nically for review and comparison. FINDINGS: Breathing motion degraded. LOWER LUNGS: The visualized lower lungs are clear. LIVER: Homogeneous density without lesion. There is no dilation of the biliary tree. High density material within the lumen of the gallbladder consistent with vicarious excretion of contrast. SPLEEN: Normal size without lesion. PANCREAS: Within normal limits. KIDNEYS: Normal in size and shape. There is no mass, stone, or hydronephrosis. ADRENAL GLANDS: Within normal limits. VASCULAR: There is no aortic aneurysm. BOWEL/MESENTERY: Diffuse wall thickening throughout the entire colon down to the level of the rectosigmoid junction. T here is mild stranding in a diffuse fashion of the mesentery. No dilatation. Small bowel and stomach are unremarkable. Small volume ascites. No pneumoperitoneum. ABDOMINAL WALL: Within normal limits. RETROPERITONEUM: There is no lymphadenopathy. BLADDER: No wall thickening or mass. REPRODUCTIVE: Within normal limits. INGUINAL: There is no lymphadenopathy or hernia. MUSCULOSKELETAL: Bilateral hip implants. CONCLUSION: 1. Pancolitis without obstruction, perforation, or abscess. 2. Small volume ascites. Manish Jenkins Jr., MD on October 19, 2017 at 23:19 Board Certified Radiologist. This report was verified electronically.
[2017-10-19] MEDS: ATORVASTATIN 20 MG TAB PO SCH (23:45)
[2017-10-19] MEDS: MONTELUKAST SODIUM 10 MG TAB PO SCH (23:45)
[2017-10-19] MEDS: metroNIDAZOLE 500 MG INJ 100 ML IV SCH (23:46)
[2017-10-20] VITALS (13 sets, daily range): BP systolic 87–136; BP diastolic 42–81; PULSE 83–161; RESP 20–25; TEMP 91–98; O2SAT 89–100
[2017-10-20] MEDS ORDERED: VANCOMYCIN IRRIGATION SCH ×3
[2017-10-20] MEDS ORDERED: [UNRECOGNIZED DRUG - OTHER] IRRIGATION SCH ×3
[2017-10-20] MEDS: IRR IRRIGATION SCH ×12 (01:38→18:30)
[2017-10-20] MEDS: VANCOMYCIN IRRIGATION SCH ×12 (01:38→18:30)
[2017-10-20] MEDS: SODIUM CHLORIDE 0.9% IRRIGATION SCH ×12 (01:38→18:30)
[2017-10-20] MEDS: RESP: ALBUTEROL 2.5 MG/IPRATROPIUM 0.5 MG NEB (SCH) NEB ×4 (04:02→20:24)
[2017-10-20] MEDS: metroNIDAZOLE 500 MG INJ 100 ML IV SCH ×4 (04:43→22:54)
[2017-10-20] MEDS: LEVOTHYROXINE SODIUM 50 MCG TAB PO SCH (04:43)
[2017-10-20 06:00] LABS: HEMATOCRIT 27.9 % (39.0-51.0); HEMOGLOBIN 9.3 GM/DL (13.0-17.0); MEAN CELL VOLUME 93.2 FL (80.0-100.0); MEAN CORPUSCULAR HEMOGLOBIN 31.2 PG (27.0-34.0); MEAN CORPUSCULAR HGB CONC 33.5 % (32.0-36.0); MEAN PLATELET VOLUME 7.9 FL (7.0-11.0); PLATELET COUNT 272 TH/MM3 (150-450); RED BLOOD COUNT 2.99 MIL/MM3 (4.50-5.90); RED CELL DISTRIBUTION WIDTH 14.2 % (11.6-17.2); WHITE BLOOD COUNT 46.4 TH/MM3 (4.0-11.0)
[2017-10-20 06:28] LABS: ALBUMIN 1.9 GM/DL (3.4-5.0); BICARBONATE 15.8 MEQ/L (21.0-32.0); CALCIUM 7.2 MG/DL (8.5-10.1); CREATININE 2.7 MG/DL (0.60-1.30); MAGNESIUM 2.1 MG/DL (1.5-2.5); PHOSPHORUS 4.3 MG/DL (2.5-4.9)
[2017-10-20] MEDS: levETIRAcetam INJ 100 ML IV SCH ×2 (08:34→19:40)
[2017-10-20] MEDS: CLOPIDOGREL 75 MG TAB PO SCH (08:35)
[2017-10-20] MEDS: LACTOBACILLUS ACIDOPHILUS TAB PO SCH ×3 (08:35→18:32)
[2017-10-20] MEDS: VANCOMYCIN 500 MG VIAL (FOR ORAL USE ONLY) PO SCH ×4 (08:35→19:42)
[2017-10-20] MEDS: PANTOPRAZOLE SOD 40 MG DELAYED RELEASE TAB PO SCH (08:35)
[2017-10-20] MEDS: carBAMazepine 200 MG TAB PO SCH ×2 (08:35→19:41)
[2017-10-20] MEDS: HEPARIN SODIUM - SQ 10,000 UNITS/ML VIAL SQ SCH ×2 (08:36→19:41)
[2017-10-20] MEDS: FLUTICASONE PROPIONATE 50 MCG/ACT 16 GM NASAL SPRAY EACH NARE SCH (09:00)
[2017-10-20] MEDS: FLUTICASONE 100 MCG/VILANTEROL 25 MCG INHALER INH SCH (09:00)
[2017-10-20] MEDS: SODIUM CHLORIDE 0.9% FLUSH 10 ML FLUSH IV FLUSH SCH ×2 (09:00→19:40)
[2017-10-20 09:01] LABS: BANDS 17 % (0-6); LYMPHOCYTES 1 % (9-44); MONOCYTES 3 % (0-8); MYELOCYTES 2 % (0-0); NEUTROPHIL # MANUAL DIFF 44.5 TH/MM3 (1.8-7.7); POLYS (SEG NEUTROPHILS) 77 % (16-70)
[2017-10-20 09:02] LABS: ACANTHOCYTES 1+ (NORMAL); OVALOCYTES 1+ (NORMAL); TOXIC GRANULATION 1+ (NORMAL)
[2017-10-20] MEDS: FERROUS SULFATE 325 MG (65 MG ELEMENTAL IRON) TAB PO SCH ×3 (09:06→18:32)
[2017-10-20] MEDS: FIDAXOMICIN 200 MG TAB PO SCH ×2 (09:18→19:41)
--- NOTE | 2017-10-20 10:38 | HHI.IDPN ---
Subjective Subjective Remarks is an 87-year-old male with a past medical history significant for dementia, arthritis, prostate cancer, HTN, HLD, TIA, COPD, GERD, seizures, presented to the ED after being sent from [facility] due to worsening altered mental status and diarrhea. Due to patient's severe dementia, history is obtained from review of electronic medical record. Patient was found to be in sepsis with white count 29.5, fever of 102.[address] scan of the abdomen and pelvis revealed pancolitis most pronounced involving the ascending colon. Urinalysis was significant for MRSA. C diff testing was positive. Patient was started on oral vancomycin. Patient's white count continued to trend upwards and he was started on oral Flagyl and his vancomycin dose was increased. His white count today is 43.9 with left shift and bandemia. He is also found to have acute renal failure with elevated creatinine of 2.34 nephrology was consulted. Patient is acidotic with bicarb of 14.5 and is currently on bicarb drip. Infectious disease consultation has been requested for evaluation and management of severe C. difficile infection and MRSA in the urine. Patient seen and examined. He is currently afebrile. Patient has been hypotensive today. Blood pressure has improved to 109/55 from 89/44 earlier this morning. He appears extremely dry on exam. He can be heard audibly wheezing. Discussed with the nursing staff who states his urine output has been extremely low. He was given IV fluid bolus and is on 125 cc of maintenance fluids. Patient has had 5 blackish green sticky bowel movements today of moderate volume. Patient has previous urine cultures with MRSA. He also has a history of ESBL E. coli in the urine. Overnight events reviewed dw MAGDALENA Camilo reports several loose BMs. UO dark and low. Awake, responsive confused. Follows simple commands. Failed swallow eval per RN When asked denies abd pain No Nausea or vomiting. Antibiotics Vanco oral Vanco enema Dificid Flagyl Lines Line sites with no e.o infection Past Medical History Past Medical History Dementia COPD Hypertension Seizure disorder History of TIAs Hypertension Dyslipidemia Cardiovascular disease GERD Urinary incontinence Prostate cancer History of previous MRSA and ESBL E. coli in urine History of coagulase negative staph bacteremia Hypothyroidism Past Surgical History Percutaneous endoscopic gastrostomy placement in November 2014 status post removal Appendectomy Bilateral hip surgeries with hardware Left ear cancer surgery Bilateral cataracts Prostatectomy Right carotid endarterectomy Tonsillectomy Allergies: Coded Allergies: amoxicillin (Unverified Allergy, Severe, Shortness of Breath, 10/17/17) clavulanic acid (Unverified Allergy, Severe, Shortness of Breath, 10/17/17) imipramine (Unverified Allergy, Severe, SEIZURE, 10/17/17) primidone (Unverified Allergy, Severe, SEIZURE, 10/17/17) Sulfa (Sulfonamide Antibiotics) (Unverified Allergy, Unknown, Rash, ) Objective . Vital Signs Date Time Temp Pulse Resp B/P (MAP) Pulse Ox O2 Delivery O2 Flow Rate FiO2 10/20/17 09:05 93 Nasal Cannula 3.00 10/20/17 08:00 96 10/20/17 08:00 97.8 83 25 87/42 (57) 89 10/20/17 06:00 96 10/20/17 04:00 97.8 90 25 88/61 (70) 89 10/20/17 04:00 90 10/20/17 02:00 93 10/20/17 00:00 98.0 93 23 125/57 (79) 91 10/20/17 00:00 96 10/19/17 22:20 100 Nasal Cannula 3.00 10/19/17 22:00 87 10/19/17 20:00 99.5 87 16 129/80 (96) 97 10/19/17 16:00 97.8 87 20 109/55 (73) 97 10/19/17 15:46 87 10/19/17 13:08 108/55 (72) 96 10/19/17 12:00 98.7 74 17 109/58 (75) 95 . Laboratory Tests Test 10/19/17 07:43 10/20/17 05:43 White Blood Count 43.9 TH/MM3 46.4 TH/MM3 Red Blood Count 2.94 MIL/MM3 2.99 MIL/MM3 Hemoglobin 9.1 GM/DL 9.3 GM/DL Hematocrit 27.8 % 27.9 % Mean Corpuscular Volume 94.4 FL 93.2 FL Mean Corpuscular Hemoglobin 30.9 PG 31.2 PG Mean Corpuscular Hemoglobin Concent 32.7 % 33.5 % Red Cell Distribution Width 14.1 % 14.2 % Platelet Count 245 TH/MM3 272 TH/MM3 Mean Platelet Volume 8.2 FL 7.9 FL Neutrophils (%) (Auto) 85.0 % Lymphocytes (%) (Auto) 3.1 % Monocytes (%) (Auto) 11.8 % Eosinophils (%) (Auto) 0.0 % Basophils (%) (Auto) 0.1 % Neutrophils # (Auto) 37.3 TH/MM3 Lymphocytes # (Auto) 1.4 TH/MM3 Monocytes # (Auto) 5.2 TH/MM3 Eosinophils # (Auto) 0.0 TH/MM3 Basophils # (Auto) 0.1 TH/MM3 CBC Comment AUTO DIFF AUTO DIFF Differential Total Cells Counted 100 100 Neutrophils % (Manual) 72 % 77 % Band Neutrophils % 13 % 17 % Lymphocytes % 5 % 1 % Monocytes % 10 % 3 % Neutrophils # (Manual) 37.3 TH/MM3 44.5 TH/MM3 Differential Comment FINAL DIFF MANUAL FINAL DIFF MANUAL Platelet Estimate NORMAL NORMAL Platelet Morphology Comment NORMAL NORMAL Ovalocytes 1+ 1+ Acanthocytes 1+ 1+ Myelocytes 2 % Toxic Granulation 1+ Laboratory Tests Test 10/19/17 07:43 10/19/17 17:13 10/19/17 20:05 10/20/17 05:43 Blood Urea Nitrogen 44 MG/DL 46 MG/DL 48 MG/DL Creatinine 2.34 MG/DL 2.56 MG/DL 2.70 MG/DL Random Glucose 108 MG/DL 135 MG/DL 159 MG/DL Total Protein 5.2 GM/DL 5.8 GM/DL 5.7 GM/DL Calcium Level 6.7 MG/DL 7.1 MG/DL 7.2 MG/DL Sodium Level 143 MEQ/L 142 MEQ/L 142 MEQ/L Potassium Level 3.6 MEQ/L 3.9 MEQ/L 3.5 MEQ/L Chloride Level 114 MEQ/L 113 MEQ/L 112 MEQ/L Carbon Dioxide Level 14.5 MEQ/L 16.8 MEQ/L 15.8 MEQ/L Anion Gap 15 MEQ/L 12 MEQ/L 14 MEQ/L Estimat Glomerular Filtration Rate 26 ML/MIN 24 ML/MIN 22 ML/MIN Protein Corrected Calcium 7.7 MG/DL 7.8 MG/DL 25-Hydroxy Vitamin D Total 28.1 ng/ML Lactic Acid Level 1.6 mmol/L 2.0 mmol/L Magnesium Level 2.1 MG/DL 2.1 MG/DL Total Bilirubin 0.3 MG/DL Direct Bilirubin 0.1 MG/DL Indirect Bilirubin 0.2 MG/DL Aspartate Amino Transf (AST/SGOT) 19 U/L Alanine Aminotransferase (ALT/SGPT) 13 U/L Alkaline Phosphatase 64 U/L Ammonia 31 MCMOL/L Lactate Dehydrogenase 226 U/L Albumin 2.0 GM/DL 1.9 GM/DL Triglycerides Level 70 MG/DL Cholesterol Level 55 MG/DL LDL Cholesterol 16 MG/DL HDL Cholesterol 24.8 MG/DL Cholesterol/HDL Ratio 2.21 RATIO Amylase Level 67 U/L Lipase 47 U/L Random Cortisol 28.0 MCG/DL Phosphorus Level 4.3 MG/DL Microbiology Date/Time Source Procedure Growth Status 10/17/17 13:00 Blood Peripheral Aerobic Blood Culture - Preliminary NO GROWTH IN 2 DAYS Resulted 10/17/17 13:00 Blood Peripheral Anaerobic Blood Culture - Preliminary NO GROWTH IN 2 DAYS Resulted 10/17/17 13:00 Blood Peripheral Aerobic Blood Culture - Preliminary NO GROWTH IN 2 DAYS Resulted 10/17/17 13:00 Blood Peripheral Anaerobic Blood Culture - Preliminary NO GROWTH IN 2 DAYS Resulted 10/17/17 11:00 Blood Peripheral Aerobic Blood Culture - Preliminary NO GROWTH IN 2 DAYS Resulted 10/17/17 11:00 Blood Peripheral Anaerobic Blood Culture - Preliminary NO GROWTH IN 2 DAYS Resulted 10/17/17 10:50 Blood Peripheral Aerobic Blood Culture - Preliminary NO GROWTH IN 2 DAYS Resulted 10/17/17 10:50 Blood Peripheral Anaerobic Blood Culture - Preliminary NO GROWTH IN 2 DAYS Resulted 10/17/17 10:50 Stool Stool Stool Occult Blood (JONNA) - Final HEMOCCULT NEGATIVE Complete 10/17/17 13:00 Urine Catheterized Urine Urine Culture - Final S. Aureus Mrsa Complete Imaging Last Impressions Abdomen/Pelvis CT 10/19/172041 Signed Impressions: Service Date/Time: October 22:34 - CONCLUSION: 1. Pancolitis without obstruction, perforation, or abscess. 2. Small volume ascites. Manish Jenkins Jr., MD Chest X-Ray 10/19/171802 Signed Impressions: Service Date/Time: October 18:17 - CONCLUSION: No acute disease. Yung Green MD Abdomen X-Ray 10/19/171802 Signed Impressions: Service Date/Time: October 18:24 - CONCLUSION: Nonspecific KUB with air seen throughout the bowel. This is likely secondary to ileus. This pattern is nonspecific. Yung Green MD Renal Ultrasound 10/19/17 0000 Signed Impressions: Service Date/Time: October 15:24 - CONCLUSION: 1. Increased echogenicity of the renal parenchyma bilaterally. This can be seen with chronic medical renal disease. 2. No hydronephrosis. Keo Trevizo MD Head CT 10/17/17 1042 Signed Impressions: Service Date/Time: Tuesday, October 17, 2017 11:07 - CONCLUSION: 1. No acute intracranial abnormality or significant interval change. Kwesi Humphreys MD Physical Exam GENERAL: This is a well-nourished, well-developed elderly male patient , INAD. Awake. Able to follow simple commands. Confused. SKIN: No rashes, ecchymoses or lesions. Cool and dry. HEAD: Atraumatic. Normocephalic. No temporal or scalp tenderness. EYES: Pupils equal round and reactive. Extraocular motions intact. No scleral icterus. No injection or drainage. ENT: Nose without bleeding or purulent drainage. Throat without erythema, tonsillar hypertrophy or exudate. Uvula midline. Airway patent. Dry mucous membranes NECK: Trachea midline. No JVD or lymphadenopathy. Supple, nontender, no meningeal signs. CARDIOVASCULAR: Regular rate and rhythm without murmurs, gallops, or rubs. RESPIRATORY: Audibly wheezing. Diminished in all lung ashby. GASTROINTESTINAL: Abdomen firm, distended, tender to palpation. No guarding or rebound tenderness. GENITOURINARY: Han catheter in place with extremely small amount of bloody urine in the bag. MUSCULOSKELETAL: Extremities without clubbing, cyanosis, or edema. No joint tenderness, effusion, or edema noted. No calf tenderness. NEUROLOGICAL: Awake and alert. Disoriented. Non focal. PSYCHIATRIC: Calm and cooperative. Able to follow simple commands. PIV with no e/o infection. Assessment & Plan Remarks Severe sepsis with leukocytosis with elevated white count of 43.9, acidosis with bicarbonate 14.5, acute renal failure with creatinine of 2.34, hypotension and tachycardia and C. difficile positive diarrhea/colitis -CT of abdomen and pelvis revealed pancolitis Leukemoid reaction due to severe Cdiff. Non-anion gap metabolic acidosis suspect secondary to bicarb loss from ongoing diarrhea -on bicarb gtt Acute renal failure suspect secondary to hypotension and IV contrast -Given IV fluid bolus. Han catheter placed. -Nephrology following Acute metabolic encephalopathy secondary to active infection and dehydration MRSA urine, suspect contaminant/colonization Seizure disorder COPD, questionable acute exacerbation Dementia Hx of TIA GERD Hypertension, currently hypotensive Hypothyroidism RECS: Continue on oral vancomycin and lactobacillus Continue Vanco enema Continue IV Flagyl continue Dificid Monitor kidney function. Avoid nephrotoxic agents. Strict I's and O's Continue to monitor clinical progress Follow cultures Follow clinically. dw RN Consult Palliative care to help address goals of therapy karan code status. to cover for me this weekend. Purvi Grimaldo MD October 20, 2017 10:38
[2017-10-20] MEDS: VANCOMYCIN INJ 500 MG in SODIUM CHLORIDE 0.9% IRR BTL 250 ML IRRIGATION SCH ×2 (13:27→18:33)
--- NOTE | 2017-10-20 13:39 | HHI.NPPN ---
Subjective Renal Failure: Acute Interval History Clinically deteriorated overnight, transferred to [facility]. Renal function is worse. He is oliguric. Palliative has been called in. (Isidra Mcdonough) Review of Systems Gastrointestinal Gastrointestinal: Abdominal Pain, Nausea & Vomiting (Isidra Mcdonough) Objective Data Data Vital Signs Date Time Temp Pulse Resp B/P (MAP) Pulse Ox O2 Delivery O2 Flow Rate FiO2 10/20/17 12:00 98.0 83 25 136/81 (99) 89 10/20/17 12:00 96 10/20/17 10:00 96 10/20/17 09:05 93 Nasal Cannula 3.00 10/20/17 08:00 96 10/20/17 08:00 97.8 83 25 87/42 (57) 89 10/20/17 06:00 96 10/20/17 04:00 97.8 90 25 88/61 (70) 89 10/20/17 04:00 90 10/20/17 02:00 93 10/20/17 00:00 98.0 93 23 125/57 (79) 91 10/20/17 00:00 96 10/19/17 22:20 100 Nasal Cannula 3.00 10/19/17 22:00 87 10/19/17 20:00 99.5 87 16 129/80 (96) 97 10/19/17 16:00 97.8 87 20 109/55 (73) 97 10/19/17 15:46 87 (Isidra Mcdonough) -: 10/20/17 0543 10/20/17 0543 Imaging Last 72 hours Impressions Abdomen/Pelvis CT 10/19/172041 Signed Impressions: Service Date/Time: October 22:34 - CONCLUSION: 1. Pancolitis without obstruction, perforation, or abscess. 2. Small volume ascites. Manish Jenkins Jr., MD Chest X-Ray 10/19/171802 Signed Impressions: Service Date/Time: October 18:17 - CONCLUSION: No acute disease. Yung Green MD Abdomen X-Ray 10/19/171802 Signed Impressions: Service Date/Time: October 18:24 - CONCLUSION: Nonspecific KUB with air seen throughout the bowel. This is likely secondary to ileus. This pattern is nonspecific. Yung Green MD Renal Ultrasound 10/19/17 0000 Signed Impressions: Service Date/Time: October 15:24 - CONCLUSION: 1. Increased echogenicity of the renal parenchyma bilaterally. This can be seen with chronic medical renal disease. 2. No hydronephrosis. Keo Trevizo MD Tubes & Lines: Han Tubes & Lines Comment rectal bag Drip Comment bicarb at 100 cc/hr in D5W, 100 mEq (Isidra Mcdonough B. GUNSMITH APPRENTICE) Physical Exam General Appearance: Comfortable, Malnourished Appearance Remarks elderly, appears ill, very dry mucous membranes (Isidra Mcdonough B. GUNSMITH APPRENTICE) Eyes Eye Exam: Pupils Equal, Pupils Reactive (Isidra Mcdonough B. GUNSMITH APPRENTICE) Neck Neck Exam: Trachea Midline (Isidra Mcdonough B. GUNSMITH APPRENTICE) Pulmonary Resp Exam: Breath Sounds Equal, Decreased Bases, Diminished Breath Sounds (Isidra Mcdonough B. GUNSMITH APPRENTICE) Cardiology CV Exam: Good Perfusion, Irregular (Isidra Mcdonough B. GUNSMITH APPRENTICE) Gastrointestinal/Abdomen GI Exam: Bowel Sounds Present, Distended GI Remarks soft, tender (Tate Mcdonoughon B. GUNSMITH APPRENTICE) Musculoskeletal MS Exam: Joints Intact, Normal Tone, Unable to Ambulate (Isidra Mcdonough B. GUNSMITH APPRENTICE) Integumentary Skin Exam: Warm, Dry, Intact (Isidra Mcdonough B. GUNSMITH APPRENTICE) Extremeties Extremities Exam: No Edema, Pedal Pulses Palpable (Isidra Mcdonough B. GUNSMITH APPRENTICE) Neurologic Neuro Exam: Awake, Combative, Obtunded (Isidra Mcdonough B. GUNSMITH APPRENTICE) Psychiatric Psych Exam: Appropriate Responses (Isidra Mcdonough B. GUNSMITH APPRENTICE) Assessment/Plan Discussed Condition With: Patient Assessment Summary: GAIL/Acute Renal Failure, Acute Tubular Necrosis Problem List: (1) Acute renal failure (ARF) ICD Codes: N17.9 - Acute kidney failure, unspecified Plan: Tiffanie renal function at baseline GAIL most likely ATN secondary to prerenal azotemia . He was also given IV contrast on admission He has become oliguric.Renal function is declining. Renal US report reviewed, normal Continue bicarb gtt for metabolic acidosis He is NPO, failed swallow Avoid nephrotoxic agents, renally dose when appropriate Monitor blood pressure, hold antihypertensives, maintain MAP > 65mmHg If no improvement he may require dialysis. Overall his prognosis is poor, and most likely will not tolerate and/or do well with dialysis Palliative has spoke with the family. They are receptive to transition to comfort care, and they will meet tomorrow to discuss plans moving forward should he continue to deteriorate tonight. (2) Leukocytosis ICD Codes: D72.829 - Elevated white blood cell count, unspecified Status: Resolved Plan: Sepsis, ID following Antibiotics include PO Vanc, IV Flagyl, vanco enema, Dificid Has MRSA in urine (3) C. difficile diarrhea ICD Codes: A04.72 - Enterocolitis due to Clostridium difficile, not specified as recurrent Status: Acute Plan: see above on Contact precautions CT shows pancolitis (4) Dementia ICD Codes: F03.90 - Dementia Status: Chronic Plan: With encephalopathy due to infection and renal failure continue supportive care, fall precautions (5) COPD (chronic obstructive pulmonary disease) ICD Codes: J44.9 - Chronic obstructive pulmonary disease, unspecified Status: Chronic Plan: Oxygen if needed He is wheezing on exam (6) Seizure disorder ICD Codes: G40.909 - Epilepsy, unspecified, not intractable, without status epilepticus Status: Chronic Plan: On Tegretol and Keppra Seizure precautions (Isidra Mcdonough) Plan patient was seen and examined. Agree with above assessment and plan. Poor prognosis. Suggest palliative care/hospice. Discussed with Dr. Grimaldo on 10/19 (Mookie Garsia MD) Isidra Mcdonough October 20, 2017 13:39 Mookie Garsia MD October 20, 2017 14:13
--- NOTE | 2017-10-20 14:26 | PD.CONS ---
Consult Service Palliative Care Consult Requested By Mohsen Grimaldo. Primary Care Physician No Primary Care Physician Reason for Consultation a. To assist with evaluation and management of symptoms including: pain, dyspnea, debility. b. To assist medical decision maker(s) with: better understanding of current medical conditions; weighing benefits/burdens of medical treatment options; making medical treatment decisions. . HPI History of Present Illness Mr. Lucas is an 87-year-old male with a medical history significant for dementia, hypertension, COPD, prostate cancer, GERD and seizure. Patient presented to ED via EMS on 10/17/17 with reports of altered mental status, headaches and diarrhea. Laboratory workup revealing leukocytosis with WBC 29.5 , Hgb 10.6, platelet count 296. Sodium 139, potassium 4.4, BUN/creatinine 31/ 1.44. UA negative for nitrates, trace leukocyte. C. difficile PCR positive. Abdomen and pelvis CT revealing pancolitis but mostly pronounced in the ascending colon. Head CT negative for acute process. Chest x-ray negative for acute process. Patient was admitted for further monitoring and management. Clinical course complicated on 10/19/17 with worsening abdominal distention. Follow-up abdomen pelvis CT revealing pancolitis without obstruction perforation or abscess. Abdominal x-ray with air seen throughout the bowel, likely secondary to ileus. Worsening renal function, BUN/creatinine 46/2.56. Renal ultrasound revealing increased echogenicity of the renal parenchyma bilaterally. Patient septic, hypotensive. Patient was transferred to medical ICU for further monitoring and management. Urine culture positive for MRSA. Nephrology consulted on 10/19 for acute renal failure. Infectious disease, Dr. Grimaldo consulted on 10/20/17 for sepsis and C. difficile colitis. Patient with history of MRSA and ESBL E. coli in the urine. Palliative care has been consulted for further clarifications of goals of care given overall poor prognosis in the setting of sepsis, C. difficile colitis, acute renal failure, dementia, multiple chronic ongoing comorbidities, advanced age and physical deconditioning. Patient seen in medical ICU. Resting in bed in moderate distress secondary to shortness of breath and abdominal pain. Patient alert to self, disoriented as to place and situation. Verbal, not always able to communicate needs secondary to confusion. Patient endorsing "not feeling well", reporting shortness of breath and abdominal pain upon palpation. Unable to elaborate on complaints. Afebrile, currently tolerating O2 via nasal cannula 3 L. Has been seen by speech therapy, n.p.o. secondary to signs of aspiration. Patient with history of dysphagia, history of PEG tube placement and removal. Telephone conversation with patient's nephew/healthcare surrogate decision maker Nickolas Renteria. In this first visit, reviewed the role of palliative care in advanced illness in regards to symptom management as well as support surrounding goals of care and advance care planning. And if you receptive to conversation. Reviewed patient's past medical history and psychosocial history. Reviewed events leading to this hospitalization, clinical course and current medical management. Shared concerns of patient's current clinical condition in the setting of sepsis, severe C. difficile colitis, acute renal failure, dementia, chronic ongoing comorbidities, advanced age and physical deconditioning. Mr. Renteria reports that he is currently in [facility] attending a family member's , expected to return to [place] tomorrow 10/21/17 in the morning. Reviewed risks, benefits and limitations of CPR, intubation and mechanical ventilation given the above. Mr. Renteria reports that he will like to keep patient full code at this time until he sees him in person and discussed CODE STATUS with his Mrs. Lucas. Mr. Renteria reports that her family is likely to make him a DNR/DNI at that time. Hospice philosophy and benefits reviewed, Mr. Renteria familiar with hospice services. Appears receptive to hospice should patient's clinical condition does not improve or worsen. Family not likely to proceed with invasive interventions if prognosis remains poor. Ongoing emotional support and active listening provided. Case discussed with nephrology and bedside RN Kely. . Function/Cognitive Trajectory Patient resident of [facility] for the past few years. Progressive clinical decline, currently requiring assistance with all ADLs besides feedings. Ambulating short distances with walker, alternating with wheelchair. Incontinent of bladder. Cognitive decline secondary to dementia. . Review of Systems ROS Limitations: Altered Mental Status, Poor Historian Constitutional: COMPLAINS OF: Pain, Generalized weakness, DENIES: Fever, Change in appetite Endocrine: DENIES: Heat/cold intolerance Eyes: DENIES: Eye inflammation, Eye pain Ears, nose, mouth, throat: COMPLAINS OF: Hearing loss, DENIES: Nasal discharge , Ear Pain, Running Nose, Epistaxis Respiratory: COMPLAINS OF: Shortness of breath, DENIES: Cough Cardiovascular: COMPLAINS OF: Dyspnea on Exertion, DENIES: Chest pain, Lower Extremity Edema Gastrointestinal: COMPLAINS OF: Abdominal pain, Diarrhea, Difficulty Swallowing , Bloating, DENIES: Black stools, Vomiting Genitourinary: COMPLAINS OF: Urinary incontinence, DENIES: Hematuria Musculoskeletal: COMPLAINS OF: Decreased range of motion, DENIES: Joint Swelling Integumentary: DENIES: Abnormal pigmentation, Pruritus Hematologic/Lymphatics: DENIES: Bruising Immunologic/Allergic: DENIES: Eczema Neurologic: COMPLAINS OF: Headache, Seizures, Poor Balance, DENIES: Localized weakness, Speech Problems Psychiatric: COMPLAINS OF: Anxiety, Confusion, DENIES: Hallucinations Past Family Social History Coded Allergies: amoxicillin (Unverified Allergy, Severe, Shortness of Breath, 10/17/17) clavulanic acid (Unverified Allergy, Severe, Shortness of Breath, 10/17/17) imipramine (Unverified Allergy, Severe, SEIZURE, 10/17/17) primidone (Unverified Allergy, Severe, SEIZURE, 10/17/17) Sulfa (Sulfonamide Antibiotics) (Unverified Allergy, Unknown, Rash, ) Past Medical History Dementia Hypertension Hyperlipidemia TIA COPD GERD Complex partial seizures history Osteoarthritis Peripheral neuropathy Prostate cancer History of T12-L1 compression fracture Seasonal allergy Depression . Past Surgical History Bilateral cataract removal Left ear cancer surgery tonsillectomy PEG tube placement/removal Appendectomy TURP Bilateral hip fracture repair Right knee arthroscopic surgery Right carotid endarterectomy . Reported Medications Lisinopril 5 Mg Tab 5 Mg PO DAILY Zoloft (Sertraline HCl) 25 Mg Tab 25 Mg PO HS Robafen Dm 100-10 mg/5Ml (Dextromethorphan-Guaifenesin) 100 Mg-10 Mg/5 Ml Syp 10 Ml PO Q6HR PRN Reguloid Powder (Psyllium Seed (with Sugar)) 369 Gm Powder PO DAILY Zantac (Ranitidine HCl) 300 Mg Tab 300 Mg PO HS Multi-Vitamin/Minerals (Multiple Vitamins W/ Minerals) 1 Tab Tab 1 Tab PO DAILY Milk of Magnesia Liq (Magnesium Hydroxide) 400 Mg/5 Ml Susp 30 Ml PO DAILY PRN Duoneb (Ipratropium-Albuterol Neb) 0.5-2.5 Mg/3 Ml Neb 3 Ml NEB Q12HR PRN Flonase Nasal [place] (Fluticasone Nasal [place]) 50 Mcg/Act [place] 1 [place] EACH NARE DAILY Boost (Lactose-Reduced Food) 0.04 Gram-1 Kcal/Ml Liquid 1 Can PO BID PRN Tylenol (Acetaminophen) 325 Mg Tab 325 Mg PO Q6H PRN Nyata (Nystatin (Topical)) 100,000 Unit/Gram Pow 1 Applic TOPICAL Q8HR PRN Pantoprazole (Pantoprazole Sodium) 40 Mg Tab 40 Mg PO DAILY Zinc Oxide (Zinc Oxide (Topical)) 20 % Oin 1 Applic TOPICAL Q8HR PRN Ventolin Hfa 18 GM Inh (Albuterol Sulfate) 90 Mcg/Act Aer 2 Puff INH Q8HR PRN Prochlorperazine Maleate 10 Mg Tab 10 Mg PO TID PRN Preservision-Lutein (Multiple Vitamins W/ Minerals) 1 Cap 1 Cap PO DAILY Gabapentin 300 Mg Cap 300 Mg PO TID Ferrous Sulfate 325 Mg (65 Mg Iron) Tablet 325 Mg PO TIDPC Carbamazepine 200 Mg Tab 200 Mg PO BID Calcium 600 with Vitamin D (Calcium Carbonate-Cholecalciferol) 600-400 mg-Unit Tab 1 Tab PO DAILY Acetaminophen 325 Mg Capsule 650 Mg PO DAILY PRN Vitamin B-6 (Pyridoxine HCl) 50 Mg Tab 50 Mg PO DAILY Propranolol (Propranolol HCl) 10 Mg Tab 10 Mg PO Q12HR Myrbetriq (Mirabegron) 50 Mg Tab 50 Mg PO DAILY Montelukast (Montelukast Sodium) 10 Mg Tab 10 Mg PO HS Levothyroxine (Levothyroxine Sodium) 50 Mcg Tab 50 Mcg PO DAILY Levetiracetam 500 Mg Tab 500 Mg PO TID Docusate Sodium 100 Mg Cap 100 Mg PO DAILY Clopidogrel (Clopidogrel Bisulfate) 75 Mg Tab 75 Mg PO DAILY Breo Ellipta Inh (Fluticasone/Vilanterol) 100-25 Mcg/Act Inh 1 Puff INH DAILY Atorvastatin (Atorvastatin Calcium) 20 Mg Tab 20 Mg PO HS Alendronate (Alendronate Sodium) 70 Mg Tab 70 Mg PO Q7D . Current Medications Medications (Trade) Dose Ordered Sig/Timbo Route Start Time Stop Time Status Last Admin (NS Flush) 2 ml UNSCH PRN IV FLUSH 10/17/17 14:15 (NS Flush) 2 ml BID IV FLUSH 10/17/17 21:00 10/20/17 09:00 (Narcan Inj) 0.4 mg UNSCH PRN IV PUSH 10/17/17 14:15 (Milk Of Magnesia Liq) 30 ml Q12H PRN PO 10/17/17 14:15 (Senokot) 17.2 mg Q12H PRN PO 10/17/17 14:15 (Dulcolax Supp) 10 mg DAILY PRN RECTAL 10/17/17 14:15 (Lactulose Liq) 30 ml DAILY PRN PO 10/17/17 14:15 (Zofran Odt) 4 mg Q6H PRN PO 10/17/17 15:00 (Lactinex) 1 tab TID PO 10/17/17 18:00 10/20/17 08:35 (Lipitor) 20 mg HS PO 10/17/17 21:00 10/19/17 23:45 (TEGretol) 200 mg BID PO 10/17/17 21:00 10/20/17 08:35 (Plavix) 75 mg DAILY PO 10/18/17 09:00 10/20/17 08:35 (Ferrous Sulfate) 325 mg TIDPC PO 10/17/17 18:30 10/20/17 09:06 (Breo Ellipta 100-25 Inh) 1 puff DAILY INH 10/18/17 09:00 10/20/17 09:00 (Synthroid) 50 mcg DAILY@0600 PO 10/18/17 06:00 10/20/17 04:43 (Singulair) 10 mg HS PO 10/17/17 21:00 10/19/17 23:45 (Protonix) 40 mg DAILY PO 10/18/17 09:00 10/20/17 08:35 (Inderal) 10 mg Q12HR PO 10/17/17 21:00 Future Hold 10/18/17 09:50 (Zoloft) 25 mg HS PO 10/17/17 21:00 Future Hold 10/18/17 20:29 (Flonase Iftikhar Spr) 1 spray DAILY EACH NARE 10/18/17 09:00 10/20/17 09:00 (Heparin Inj) 5,000 units Q12HR SQ 10/17/17 21:00 10/20/17 08:36 (Pill Splitter) 1 ea UNSCH PRN OTHER 10/17/17 16:30 Sodium Bicarbonate 100 meq/Dextrose 1,100 ml @ 100 mls/hr Q11H IV 10/19/17 12:00 10/19/17 23:46 (VANCOMYCIN for oral use only) 500 mg QID PO 10/19/17 18:00 10/20/17 08:35 Metronidazole 100 ml @ 100 mls/hr Q6H IV 10/20/17 00:00 10/20/17 04:43 (Dificid) 200 mg BID PO 10/19/17 21:00 10/29/17 09:01 10/20/17 09:18 (Duoneb Neb) 1 ampule Q6HR NEB NEB 10/19/17 22:00 10/20/17 09:05 (Albuterol Neb) 2.5 mg Q2HR NEB PRN NEB 10/19/17 19:00 Acetaminophen 100 ml @ 400 mls/hr Q8H PRN IV 10/19/17 19:00 Levetriacetam 100 ml @ 400 mls/hr Q12HR IV 10/19/17 21:00 10/20/17 08:34 [place] [place] [facility] [place] Patient in critical care unit? Ass... Q361D .XX 10/19/17 22:30 10/19/17 22:30 (Chlorhexidine 2% Cloth) 3 pack DAILY@04 TOPICAL 10/20/17 04:00 10/24/17 04:01 10/19/17 22:00 (Chlorhexidine 2% Cloth) 3 pack UNSCH PRN TOPICAL 10/19/17 22:30 10/24/17 22:16 Irrigation Supplies/Sodium Chloride/ Vancomycin HCl Q6H IRRIGATION 10/20/17 00:30 10/20/17 05:25 Vancomycin HCl 500 mg/Sodium Chloride 250 ml @ 0 mls/hr Q6HR IRRIGATION 10/20/17 13:00 Family History Family history of cancer. . Substance Use Tobacco: Former smoker. Alcohol: None reported. Prescription med abuse: None reported. Illicits: None reported. . Psychosocial History Originally from [place]. , no biological children. Retired. 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 . Spiritual/Cultural Factors Episcopalian catherine. . Living Will: Copy in medical record Health Care Surrogate: Copy in medical record Durable Power of Surveillance Specialist: Copy in medical record Date completed: 08/03/2015. . Health Care Surrogate(s): Nephew Nickolas Renteria. Alternate surrogate is his niece Francisca Sanches. . Documented care wishes: Living will with standard verbiage. . Family/friends goals: Aggressive goals for now. . Ethical and Legal Issues No ethical legal issues identified. . Physical Exam Vital Signs Date Time Temp Pulse Resp B/P (MAP) Pulse Ox O2 Delivery O2 Flow Rate FiO2 10/20/17 12:00 98.0 83 25 136/81 (99) 89 10/20/17 12:00 96 10/20/17 10:00 96 10/20/17 09:05 93 Nasal Cannula 3.00 10/20/17 08:00 96 10/20/17 08:00 97.8 83 25 87/42 (57) 89 10/20/17 06:00 96 10/20/17 04:00 97.8 90 25 88/61 (70) 89 10/20/17 04:00 90 10/20/17 02:00 93 10/20/17 00:00 98.0 93 23 125/57 (79) 91 10/20/17 00:00 96 10/19/17 22:20 100 Nasal Cannula 3.00 10/19/17 22:00 87 10/19/17 20:00 99.5 87 16 129/80 (96) 97 10/19/17 16:00 97.8 87 20 109/55 (73) 97 10/19/17 15:46 87 Exam CONSTITUTIONAL/GENERAL: This is an ill-looking elderly man resting in bed in moderate distress secondary to increased work of breathing and abdominal pain. TUBES/LINES/DRAINS: Nasal cannula, Han catheter, PIV's. SKIN: Very pale. no jaundice, rashes, or lesions. No wounds seen anteriorly. Skin temperature appropriate. Not diaphoretic. HEAD: Atraumatic. Normocephalic. EYES: Pupils equal and round and reactive. Extraocular motions intact. No scleral icterus. No injection or drainage. ENT: Hard of hearing. Nose without bleeding or purulent drainage. Moist oral mucosa. NECK: Trachea midline. Supple, nontender. CARDIOVASCULAR: Regular rate and rhythm. Peripheral pulses symmetric. RESPIRATORY/CHEST: Symmetric, increased work of breathing. Clear, diminished to auscultation. GASTROINTESTINAL: Abdomen round, large, very distended and very tender to touch. small protruding hernia to former site of PEG tube (scar). GENITOURINARY: Han catheter in place. Tea color urine in Han bag. MUSCULOSKELETAL: Extremities without clubbing, cyanosis, or edema. No mottling or clubbing. NEUROLOGICAL: Awake and alert to self, confused as to place and situation. Verbal, cannot always communicate needs secondary to confusion. PSYCHIATRIC: Anxious. . Diagnostic Tests Laboratory Laboratory Tests Test 10/17/17 20:11 10/18/17 07:28 10/19/17 07:43 10/19/17 17:13 Levetiracetam (Keppra) Level 33.7 mcg/mL (12.0 - 46.0) White Blood Count 41.4 TH/MM3 (4.0-11.0) 43.9 TH/MM3 (4.0-11.0) Red Blood Count 3.01 MIL/MM3 (4.50-5.90) 2.94 MIL/MM3 (4.50-5.90) Hemoglobin 9.2 GM/DL (13.0-17.0) 9.1 GM/DL (13.0-17.0) Hematocrit 28.0 % (39.0-51.0) 27.8 % (39.0-51.0) Mean Corpuscular Volume 93.2 FL (80.0-100.0) 94.4 FL (80.0-100.0) Mean Corpuscular Hemoglobin 30.6 PG (27.0-34.0) 30.9 PG (27.0-34.0) Mean Corpuscular Hemoglobin Concent 32.9 % (32.0-36.0) 32.7 % (32.0-36.0) Red Cell Distribution Width 14.1 % (11.6-17.2) 14.1 % (11.6-17.2) Platelet Count 255 TH/MM3 (150-450) 245 TH/MM3 (150-450) Mean Platelet Volume 8.4 FL (7.0-11.0) 8.2 FL (7.0-11.0) Neutrophils (%) (Auto) 82.6 % (16.0-70.0) 85.0 % (16.0-70.0) Lymphocytes (%) (Auto) 3.6 % (9.0-44.0) 3.1 % (9.0-44.0) Monocytes (%) (Auto) 13.7 % (0.0-8.0) 11.8 % (0.0-8.0) Eosinophils (%) (Auto) 0.0 % (0.0-4.0) 0.0 % (0.0-4.0) Basophils (%) (Auto) 0.1 % (0.0-2.0) 0.1 % (0.0-2.0) Neutrophils # (Auto) 34.2 TH/MM3 (1.8-7.7) 37.3 TH/MM3 (1.8-7.7) Lymphocytes # (Auto) 1.5 TH/MM3 (1.0-4.8) 1.4 TH/MM3 (1.0-4.8) Monocytes # (Auto) 5.7 TH/MM3 (0-0.9) 5.2 TH/MM3 (0-0.9) Eosinophils # (Auto) 0.0 TH/MM3 (0-0.4) 0.0 TH/MM3 (0-0.4) Basophils # (Auto) 0.0 TH/MM3 (0-0.2) 0.1 TH/MM3 (0-0.2) CBC Comment AUTO DIFF AUTO DIFF Differential Total Cells Counted 100 100 Neutrophils % (Manual) 88 % (16-70) 72 % (16-70) Band Neutrophils % 8 % (0-6) 13 % (0-6) Lymphocytes % 1 % (9-44) 5 % (9-44) Monocytes % 3 % (0-8) 10 % (0-8) Neutrophils # (Manual) 39.7 TH/MM3 (1.8-7.7) 37.3 TH/MM3 (1.8-7.7) Differential Comment FINAL DIFF MANUAL FINAL DIFF MANUAL Platelet Estimate NORMAL (NORMAL) NORMAL (NORMAL) Platelet Morphology Comment NORMAL (NORMAL) NORMAL (NORMAL) Blood Urea Nitrogen 34 MG/DL (7-18) 44 MG/DL (7-18) 46 MG/DL (7-18) Creatinine 1.49 MG/DL (0.60-1.30) 2.34 MG/DL (0.60-1.30) 2.56 MG/DL (0.60-1.30) Random Glucose 86 MG/DL (74-106) 108 MG/DL (74-106) 135 MG/DL (74-106) Calcium Level 7.5 MG/DL (8.5-10.1) 6.7 MG/DL (8.5-10.1) 7.1 MG/DL (8.5-10.1) Sodium Level 141 MEQ/L (136-145) 143 MEQ/L (136-145) 142 MEQ/L (136-145) Potassium Level 3.8 MEQ/L (3.5-5.1) 3.6 MEQ/L (3.5-5.1) 3.9 MEQ/L (3.5-5.1) Chloride Level 111 MEQ/L (98-107) 114 MEQ/L (98-107) 113 MEQ/L (98-107) Carbon Dioxide Level 17.2 MEQ/L (21.0-32.0) 14.5 MEQ/L (21.0-32.0) 16.8 MEQ/L (21.0-32.0) Anion Gap 13 MEQ/L (5-15) 15 MEQ/L (5-15) 12 MEQ/L (5-15) Estimat Glomerular Filtration Rate 45 ML/MIN (>89) 26 ML/MIN (>89) 24 ML/MIN (>89) Ovalocytes 1+ (NORMAL) Acanthocytes 1+ (NORMAL) Total Protein 5.2 GM/DL (6.4-8.2) 5.8 GM/DL (6.4-8.2) Protein Corrected Calcium 7.7 MG/DL (8.5-10.1) 7.8 MG/DL (8.5-10.1) 25-Hydroxy Vitamin D Total 28.1 ng/ML (30-100) Lactic Acid Level 1.6 mmol/L (0.4-2.0) Test 10/19/17 20:05 10/19/17 22:00 10/19/17 22:45 10/20/17 05:43 Prothrombin Time 11.7 SEC (9.8-11.6) Prothromb Time International Ratio 1.2 RATIO Activated Partial Thromboplast Time 31.2 SEC (24.3-30.1) Fibrinogen 417 mg/dL (227-377) Magnesium Level 2.1 MG/DL (1.5-2.5) 2.1 MG/DL (1.5-2.5) Total Bilirubin 0.3 MG/DL (0.2-1.0) Direct Bilirubin 0.1 MG/DL (0.0-0.2) Indirect Bilirubin 0.2 MG/DL (0.0-0.8) Aspartate Amino Transf (AST/SGOT) 19 U/L (15-37) Alanine Aminotransferase (ALT/SGPT) 13 U/L (12-78) Alkaline Phosphatase 64 U/L (45-117) Ammonia 31 MCMOL/L (11-32) Lactate Dehydrogenase 226 U/L (87-241) Total Protein 5.7 GM/DL (6.4-8.2) Albumin 2.0 GM/DL (3.4-5.0) 1.9 GM/DL (3.4-5.0) Triglycerides Level 70 MG/DL (42-150) Cholesterol Level 55 MG/DL (120-200) LDL Cholesterol 16 MG/DL (0-99) HDL Cholesterol 24.8 MG/DL (40.0-60.0) Cholesterol/HDL Ratio 2.21 RATIO Amylase Level 67 U/L (25-115) Lipase 47 U/L (73-393) Random Cortisol 28.0 MCG/DL Nasal Screen MRSA (PCR) MRSA DETECTED (NOT DETECT) Blood Gas Puncture Site RT BRACHIAL Blood Gas Patient Temperature 98.6 Blood Gas HCO3 15 mmol/L (22-26) Blood Gas Base Excess -10.4 mmol/L (-2-2) Blood Gas Oxygen Saturation 95 % (90-100) Arterial Blood pH 7.30 (7.380-7.420) Arterial Blood Partial Pressure CO2 31 mmHg (38-42) Arterial Blood Partial Pressure O2 112 mmHg (61-120) Arterial Blood Oxygen Content 13.4 Vol % (12.0-20.0) Arterial Blood Carboxyhemoglobin 0.5 % (0-4) Arterial Blood Methemoglobin 1.9 % (0-2) Blood Gas Hemoglobin 10.0 G/DL (12.0-16.0) Oxygen Delivery Device NASAL CANNULA Blood Gas Liter Flow 3 L/M White Blood Count 46.4 TH/MM3 (4.0-11.0) Red Blood Count 2.99 MIL/MM3 (4.50-5.90) Hemoglobin 9.3 GM/DL (13.0-17.0) Hematocrit 27.9 % (39.0-51.0) Mean Corpuscular Volume 93.2 FL (80.0-100.0) Mean Corpuscular Hemoglobin 31.2 PG (27.0-34.0) Mean Corpuscular Hemoglobin Concent 33.5 % (32.0-36.0) Red Cell Distribution Width 14.2 % (11.6-17.2) Platelet Count 272 TH/MM3 (150-450) Mean Platelet Volume 7.9 FL (7.0-11.0) CBC Comment AUTO DIFF Differential Total Cells Counted 100 Neutrophils % (Manual) 77 % (16-70) Band Neutrophils % 17 % (0-6) Lymphocytes % 1 % (9-44) Monocytes % 3 % (0-8) Neutrophils # (Manual) 44.5 TH/MM3 (1.8-7.7) Myelocytes 2 % (0-0) Differential Comment FINAL DIFF MANUAL Toxic Granulation 1+ (NORMAL) Platelet Estimate NORMAL (NORMAL) Platelet Morphology Comment NORMAL (NORMAL) Ovalocytes 1+ (NORMAL) Acanthocytes 1+ (NORMAL) Blood Urea Nitrogen 48 MG/DL (7-18) Creatinine 2.70 MG/DL (0.60-1.30) Random Glucose 159 MG/DL (74-106) Calcium Level 7.2 MG/DL (8.5-10.1) Phosphorus Level 4.3 MG/DL (2.5-4.9) Sodium Level 142 MEQ/L (136-145) Potassium Level 3.5 MEQ/L (3.5-5.1) Chloride Level 112 MEQ/L (98-107) Carbon Dioxide Level 15.8 MEQ/L (21.0-32.0) Anion Gap 14 MEQ/L (5-15) Estimat Glomerular Filtration Rate 22 ML/MIN (>89) Lactic Acid Level 2.0 mmol/L (0.4-2.0) Result Diagram: 10/20/17 0543 10/20/17 0543 Microbiology Microbiology Date/Time Source Procedure Growth Status 10/17/17 13:00 Blood Peripheral Aerobic Blood Culture - Preliminary NO GROWTH IN 3 DAYS Resulted 10/17/17 13:00 Blood Peripheral Anaerobic Blood Culture - Preliminary NO GROWTH IN 3 DAYS Resulted 10/17/17 10:50 Stool Stool Stool Occult Blood (JONAN) - Final HEMOCCULT NEGATIVE Complete 10/17/17 13:00 Urine Catheterized Urine Urine Culture - Final S. Aureus Mrsa Complete Imaging Last Impressions Abdomen/Pelvis CT 10/19/172 Signed Impressions: Service Date/Time: October 22:34 - CONCLUSION: 1. Pancolitis without obstruction, perforation, or abscess. 2. Small volume ascites. Manish Jenkins Jr., MD Chest X-Ray 10/19/17 1803 Signed Impressions: Service Date/Time: October 18:17 - CONCLUSION: No acute disease. Yung Green MD Abdomen X-Ray 10/19/171802 Signed Impressions: Service Date/Time: October 18:24 - CONCLUSION: Nonspecific KUB with air seen throughout the bowel. This is likely secondary to ileus. This pattern is nonspecific. Yung Green MD Renal Ultrasound 10/19/17 0000 Signed Impressions: Service Date/Time: October 15:24 - CONCLUSION: 1. Increased echogenicity of the renal parenchyma bilaterally. This can be seen with chronic medical renal disease. 2. No hydronephrosis. Keo Trevizo MD Head CT 10/17/17 1042 Signed Impressions: Service Date/Time: Tuesday, October 17, 2017 11:07 - CONCLUSION: 1. No acute intracranial abnormality or significant interval change. Kwesi Humphreys MD Patient/Family Conference Present at Family Conference: Nephew/healthcare surrogate Nickolas Renteria. . Family Conference Time (mins): 35 Family Conference Location: Telephone Issues Discussed: * Palliative care role, purpose, approach * Additional medical, psychosocial, and spiritual history * Patients general health, functional status, and cognitive changes in the months leading up to the current hospitalization * Patient/family understanding of the current medical problems * Patient/family understanding of prognosis -prognosis remains guarded * Patients goals of care as best understood from advance directives and/or conversations and/or values * Current medical treatment options and benefits/burdens of those options * Likely scenarios comparing ongoing aggressive care with a transition to comfort measures only * Questions answered to the best of my ability * Palliative care contact information provided * Risks, benefits and limitations of CPR, intubation and mechanical ventilation given patient's condition * Hospice philosophy and benefits . Assessment and Plan Disease Oriented Problem List: (1) Sepsis (2) Clostridium difficile colitis (3) Acute kidney injury (4) COPD (chronic obstructive pulmonary disease) (5) Seizure disorder (6) Dementia (7) Physical deconditioning Symptom Scale: (1) Dyspnea 0-10 Scale: Unable to quantify (2) Pain 0-10 Scale: Unable to quantify (3) Debility 0-10 Scale: Unable to quantify Pertinent Non-Medical Issues Psychosocial: Originally from [place]. , no biological children. Retired. 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 Spiritual: Episcopalian catherine. Legal: Advance directives completed. Ethical issues impacting care: No ethical issues identified. . Important Contacts Nephew/healthcare surrogate Nickolas Wilsonall . . Prognosis Mr. Lucas is an 87-year-old male with a medical history significant for dementia, hypertension, COPD, prostate cancer, GERD and seizure. Patient presented to ED via EMS on 10/17/17 with reports of altered mental status, headaches and diarrhea. Patient was admitted with C. difficile and UTI. Clinical course complicated with worsening abdominal distention, acute kidney injury and severe sepsis. Overall prognosis appears poor in the setting of sepsis, C. difficile colitis, acute renal failure, dementia, multiple chronic ongoing comorbidities, advanced age and profound physical deconditioning. Patient appears hospice appropriate should family elects comfort-directed care. . Code Status: Full Code Plan * CODE STATUS: Full code for now. Risks, benefits and limitations of CPR, intubation and mechanical ventilation have been discussed with healthcare surrogate Nickolas Renteria. * HEALTHCARE DECISION-MAKING: Patient unable to participating medical decision making secondary to clinical condition, baseline dementia with acute illness. Advanced directives completed, most recent advanced directive dated 08/03/2015 naming patient's nephew Nickolas Renteria as healthcare surrogate decision maker, alternate surrogate is kyler Sanches. Nickolas Renteria has fully accepted this role. * GOALS OF CARE: As per patient's nephew/healthcare surrogate decision maker Nickolas Renteria, goals of therapy remain aggressive to include full code at this time. Nephew to return to [place] tomorrow Saturday 10/21 in the morning, likely to change code status to DNR/DNI once he sees patient and discusses his condition with patient's Mrs. Keturah Lucas. Family not likely to proceed with any invasive procedures or interventions. Hospice philosophy and benefits reviewed given patient's overall poor prognosis, family receptive to hospice should patient's clinical condition does not improve or worsen. * SYMPTOMS: = Dyspnea, multifactorial secondary to COPD, sepsis, acute illness. Currently tolerating O2 via nasal cannula at 3 L. Rehab Consultant following. = Pain: Abdominal pain secondary to distention, active C. difficile colitis. Infectious disease following, opiates not recommended in the setting of severe abdominal distention/colitis. = Debility: Patient resident of [facility], requires assistance with all ADLs besides feedings. Poor activity tolerance. Debility likely to worsen. * Case discussed with nephrology and bedside RN. * Palliative care contact information has been provided to patient and family. * Palliative care will continue to follow up for further clarification of goals of care as patient's clinical course continues to evolve. . Time Spent Total Floor Time (mins): 66 (Total time to include review and summarization of available medical records to include prior hospitalizations, physical exam, goals of care conversation with patient's nephew/healthcare surrogate Nickolas, case discussion with nephrology and bedside RN.) >50% Counseling/Coord of Care: Yes Thank you for the opportunity to participate in the care of Mr. Lucas. Attestation To help prompt me to consider important information that might be impacting today's encounter and assessment, information from prior notes written by myself or my colleagues may have been "brought forward" into today's note. My signature on this note, however, is an attestation that I personally performed the exam, history, and/or decision-making noted today, and, unless otherwise indicated, the interactions with patient, family, and staff as well as the review of records all occurred today. I also attest that the listed assessment and stated plan reflect my best clinical judgment today based on the combination of historical information, prior notes, and today's exam/ interactions. When time spent is documented, it refers only to time spent today by the signer, or if indicated, combined time spent today by collaborating physician/nurse practitioner. . Nuvia Adames October 20, 2017 14:26
--- NOTE | 2017-10-20 18:24 | HHI.CCPN ---
Subjective Remarks/Hospital Course This is an 87-year-old male. Date of admission 10/17/2017. Date of consultation 10/19/2017. Patient with many comorbidities including dementia disorder, TIAs, seizures, prostate cancer, COPD, gastroesophageal reflux disease , hypertension, dyslipidemia, esophageal strictures, left bundle branch block, ventricular arterial disease and atherosclerotic heart disease. History of pill esophagitis/esophageal strictures with history of PEG tube placement. Patient was admitted to the hospital service on 10/17 with diarrhea/abdominal pain. CT abdomen/pelvis revealed pancolitis. Patient originally treated with metronidazole Patient with worsening status with increasing creatinine, WBCs. Infectious disease nephrology consult. Abdomen more distended today and hypotensive with systolic blood pressures in the 80s on the floor. Received 2 L normal saline. Due to clinical status, infectious disease recommended ICU transfer. On evaluation of patient with abdomen firm but not surgical with no rigidity. CT abdomen/pelvis currently pending. Lactate and all laboratories pending at time of dictation. Subjective: 10/20: T-max 99.3 persistent leukocytosis. Patient continues on sodium bicarbonate infusion. Palliative medicine has been consulted for defining goals of care. Objective Vital Signs Date Time Temp Pulse Resp B/P (MAP) Pulse Ox O2 Delivery O2 Flow Rate FiO2 10/20/17 16:00 98.0 88 20 99/54 (69) 92 10/20/17 09:05 Nasal Cannula 3.00 Intake and Output 10/20/17 10/20/17 10/21/17 08:00 16:00 00:00 Intake Total 320 ml 200 ml Output Total 200 ml Balance 120 ml 200 ml Result Diagram: 10/20/17 0543 10/20/17 0543 Other Results Laboratory Tests Test 10/19/17 22:45 Blood Gas Puncture Site RT BRACHIAL Blood Gas Patient Temperature 98.6 Blood Gas HCO3 15 mmol/L (22-26) Blood Gas Base Excess -10.4 mmol/L (-2-2) Blood Gas Oxygen Saturation 95 % (90-100) Arterial Blood pH 7.30 (7.380-7.420) Arterial Blood Partial Pressure CO2 31 mmHg (38-42) Arterial Blood Partial Pressure O2 112 mmHg (61-120) Arterial Blood Oxygen Content 13.4 Vol % (12.0-20.0) Arterial Blood Carboxyhemoglobin 0.5 % (0-4) Arterial Blood Methemoglobin 1.9 % (0-2) Blood Gas Hemoglobin 10.0 G/DL (12.0-16.0) Oxygen Delivery Device NASAL CANNULA Blood Gas Liter Flow 3 L/M Imaging Last Impressions Abdomen/Pelvis CT 10/19/172041 Signed Impressions: Service Date/Time: October 22:34 - CONCLUSION: 1. Pancolitis without obstruction, perforation, or abscess. 2. Small volume ascites. Manish Jenkins Jr., MD Chest X-Ray 10/19/171802 Signed Impressions: Service Date/Time: October 18:17 - CONCLUSION: No acute disease. Yung Green MD Abdomen X-Ray 10/19/171802 Signed Impressions: Service Date/Time: October 18:24 - CONCLUSION: Nonspecific KUB with air seen throughout the bowel. This is likely secondary to ileus. This pattern is nonspecific. Yung Green MD Renal Ultrasound 10/19/17 0000 Signed Impressions: Service Date/Time: October 15:24 - CONCLUSION: 1. Increased echogenicity of the renal parenchyma bilaterally. This can be seen with chronic medical renal disease. 2. No hydronephrosis. Keo Trevizo MD Head CT 10/17/17 1042 Signed Impressions: Service Date/Time: Tuesday, October 17, 2017 11:07 - CONCLUSION: 1. No acute intracranial abnormality or significant interval change. Kwesi Humphreys MD Last Impressions Renal Ultrasound 10/19/17 0000 Signed Impressions: Service Date/Time: October 15:24 - CONCLUSION: 1. Increased echogenicity of the renal parenchyma bilaterally. This can be seen with chronic medical renal disease. 2. No hydronephrosis. Keo Trevizo MD Head CT 10/17/17 1042 Signed Impressions: Service Date/Time: Tuesday, October 17, 2017 11:07 - CONCLUSION: 1. No acute intracranial abnormality or significant interval change. Kwesi Humphreys MD Chest X-Ray 10/17/17 1042 Signed Impressions: Service Date/Time: Tuesday, October 17, 2017 11:13 - CONCLUSION: No acute disease. Shane Pro MD Abdomen/Pelvis CT 10/17/17 0000 Signed Impressions: Service Date/Time: Tuesday, October 17, 2017 19:53 - CONCLUSION: 1. Gould colitis but most pronounced involving the ascending colon. Manish Jenkins Jr., MD Objective Remarks GENERAL: 87-year-old male currently resting in bed in no acute distress SKIN: Warm and dry. HEAD: Atraumatic. Normocephalic. EYES: Pupils equal and round. No scleral icterus. No injection or drainage. ENT: No nasal bleeding or discharge. Mucous membranes pink and dry. Oropharynx without erythema or thrush NECK: Trachea midline. No JVD. CARDIOVASCULAR: Regular rate and rhythm. S1, S2. No S4. Without murmur RESPIRATORY: Positive audible and expiratory wheezing appreciated. Symmetrical excursion GASTROINTESTINAL: Abdomen s distended. Tender to palpation worse in the left lower quadrant. Voluntary guarding. No rigidity. Hypoactive bowel sounds are appreciated. MUSCULOSKELETAL: Extremities with trace lower extremity edema NEUROLOGICAL: Awake and alert. No obvious cranial nerve deficits. Motor grossly within normal limits. Five out of 5 muscle strength in the arms and legs. Normal speech. 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 There is compensatory enlargement of the posterior horns of the lateral ventricles stable from prior exam Acetaminophen 1 g IV every 8 hours as needed fever Currently on levetiracetam to understand why this does not work 500 mg p.o. 3 times daily, and carbamazepine 200 mg p.o. twice daily Holding gabapentin 300 mg 3 times daily with altered mental status Holding sertraline 25 mg p.o. daily for depression. Resume when clinically indicated CV: Essential hypertension Hyperlipidemia Right bundle branch block Peripheral arterial disease Atherosclerotic vascular disease Echocardiogram 2017 revealed ejection fraction of 55-60%. No regional wall motion abnormality. Mild TR. Holding lisinopril 5 mg p.o. daily/home medication and propranolol 10 mg p.o. twice daily/home medication while hypertensive Currently on atorvastatin 20 mg p.o. daily for dyslipidemia Currently on sterile water with bicarbonate at 100 cc an hour. Received 2 L normal saline floor. Troponin on admission was 0.06 Currently on clopidogrel 75 mg p.o. daily Resp: COPD Nasal cannula to maintain saturations greater than or equal to 92% Incentive spirometry while awake Follow-up on chest x-ray On fluticasone/Vilanterol 1 inhalation daily Placed on albuterol/ipratropium aerosols every 6 hours with albuterol aerosols every 2 hours as needed dyspnea Currently on montelukast 10 mg p.o. daily GI: Gastroesophageal reflux disease History of esophageal stricture History of pill dysphagia History of PEG tube placement status post removal CT abdomen/pelvis on admission revealed pancolitis including the ascending colon. KUB is been ordered today. Will review her CT abdomen/pelvis evaluate for possible megacolon Currently n.p.o. status with NG tube to be placed to low intermittent wall suction Pantoprazole for GI prophylaxis : History of prostate cancer status post TURP Han catheter if indicated Endo: Hypothyroidism Continue levothyroxine 50 mcg p.o. daily. TSH 2.28 on admission Sliding scale insulin if indicated to maintain euglycemia Renal: Acute kidney injury Renal ultrasound revealed increased echogenicity of the kidneys indicative of chronic medical disease. No hydronephrosis. Creatinine currently 2.56. Currently being followed by nephrology Heme: Normocytic anemia Repeat CBC, coags all pending fibrinogen Transfuse for hemoglobin less than 7 ID: C. difficile colitis Currently on fiaxomicin 200 mg p.o. twice daily 10 days, vancomycin 500 mg p.o. 4 times daily and metronidazole 500 mg IV every 6 hours Lactobacillus per ID Vancomycin in about 250 mg in 200 cc tap water every 6 hours ordered. ID request FEN: Replace electrolytes as clinically indicated MSK: PT evaluate and treat Access Utilized peripheral IV. Central line if indicated- Prophylaxis GI-pantoprazole -DVT -SCD/heparin subcu Level 2 F/U Physician Marylou Richardson MD October 20, 2017 18:24
[2017-10-20] MEDS: MONTELUKAST SODIUM 10 MG TAB PO SCH (19:41)
[2017-10-20] MEDS: ATORVASTATIN 20 MG TAB PO SCH (19:41)
[2017-10-20] MEDS ORDERED: SODIUM CHLOR 0.9% 1000 ML INJ 1,000 ML IV ONE (21:00)
[2017-10-20] MEDS ORDERED: Vancomycin Consult Pharmacy 1 EA OTHER SCH (21:00)
[2017-10-20] MEDS ORDERED: VANCOMYCIN INJ 1,000 MG in SODIUM CHLOR 0.9% 250 ML INJ 250 ML IV SCH (21:00)
[2017-10-20] MEDS ORDERED: VANCOMYCIN 1,000 MG/NS 250 ML IV ONE ×2 (21:45)
[2017-10-20 21:46] LABS: HEMATOCRIT 25.6 % (39.0-51.0); HEMOGLOBIN 8.5 GM/DL (13.0-17.0); MEAN CELL VOLUME 92.1 FL (80.0-100.0); MEAN CORPUSCULAR HEMOGLOBIN 30.6 PG (27.0-34.0); MEAN CORPUSCULAR HGB CONC 33.2 % (32.0-36.0); PLATELET COUNT 241 TH/MM3 (150-450); RED BLOOD COUNT 2.78 MIL/MM3 (4.50-5.90); RED CELL DISTRIBUTION WIDTH 14.1 % (11.6-17.2); WHITE BLOOD COUNT 29.5 TH/MM3 (4.0-11.0)
[2017-10-20] MEDS ORDERED: METOPROLOL TARTRATE 5 MG/5 ML VIAL IV PUSH ONE ×2 (22:00→23:45)
[2017-10-20] MEDS ORDERED: DIGOXIN 0.5 MG/2 ML VIAL IV PUSH ONE (22:00)
[2017-10-20 22:03] LABS: ALBUMIN 1.6 GM/DL (3.4-5.0); BICARBONATE 18.5 MEQ/L (21.0-32.0); CALCIUM 6.6 MG/DL (8.5-10.1); CALCIUM-PROTEIN CORRECTED 7.8 MG/DL (8.5-10.1); CREATININE 2.5 MG/DL (0.60-1.30); MAGNESIUM 1.9 MG/DL (1.5-2.5); TOTAL BILIRUBIN ADULT 0.3 MG/DL (0.2-1.0); TOTAL PROTEIN 4.7 GM/DL (6.4-8.2)
[2017-10-20] MEDS: AZTREONAM INJ 1,000 MG in SODIUM CHLORIDE 0.9% INJ 100 ML IV SCH (22:54)
[2017-10-20] MEDS ORDERED: TERBUTALINE INJ 1 MG/ML AMP SQ PRN (23:45)
[2017-10-20] MEDS ORDERED: PHENYLEPHRINE INJ 40 MG in DEXTROSE 5% IN WATE 500 ML INJ 496 ML IV PRN ×2 (23:45)
[2017-10-21] VITALS (12 sets, daily range): BP systolic 92–160; BP diastolic 57–68; PULSE 85–131; RESP 20–27; TEMP 97.1–99.2; O2SAT 67–100
[2017-10-21] MEDS: MICAFUNGIN INJ 100 MG in SODIUM CHLORIDE 0.9% INJ 100 ML IV SCH ×2 (00:35→22:09)
[2017-10-21] MEDS: ESMOLOL DRIP INJ PREMIX 250 ML IV PRN ×2 (00:36→03:54)
[2017-10-21] MEDS: POTASSIUM CHLOR 20 MEQ PREMIX 100 ML IV SCH ×2 (00:45→02:23)
[2017-10-21] MEDS: VANCOMYCIN INJ 500 MG in SODIUM CHLORIDE 0.9% IRR BTL 250 ML IRRIGATION SCH ×4 (01:49→23:34)
[2017-10-21] MEDS: CHLORHEXIDINE GLUCONATE 2 % 1 PACK (2 CLOTHS)(taper/protocol) TOPICAL SCH (04:00)
[2017-10-21] MEDS: RESP: ALBUTEROL 2.5 MG/IPRATROPIUM 0.5 MG NEB (SCH) NEB ×4 (04:05→21:06)
[2017-10-21] MEDS ORDERED: LORazepam 2 MG/ML VIAL ONE (04:55)
[2017-10-21] MEDS: SODIUM BICARBONATE 8.4% INJ 100 MEQ in DEXTROSE 5% IN WATE 1000ML INJ 1,000 ML IV SCH ×4 (05:02→08:15)
[2017-10-21] MEDS: metroNIDAZOLE 500 MG INJ 100 ML IV SCH ×5 (05:03→23:32)
[2017-10-21] MEDS: LEVOTHYROXINE SODIUM 50 MCG TAB PO SCH (05:03)
[2017-10-21 05:32] LABS: AUTOMATED NEUTROPHIL # 31.9 TH/MM3 (1.8-7.7); BASOPHIL # 0.1 TH/MM3 (0-0.2); BASOPHIL % 0.2 % (0.0-2.0); EOSINOPHIL # 0.2 TH/MM3 (0-0.4); EOSINOPHIL % 0.6 % (0.0-4.0); HEMATOCRIT 28.6 % (39.0-51.0); HEMOGLOBIN 9.6 GM/DL (13.0-17.0); LYMPH % 2.5 % (9.0-44.0); LYMPHOCYTE # 0.9 TH/MM3 (1.0-4.8); MEAN CELL VOLUME 93.9 FL (80.0-100.0); MEAN CORPUSCULAR HEMOGLOBIN 31.4 PG (27.0-34.0); MEAN CORPUSCULAR HGB CONC 33.4 % (32.0-36.0); MEAN PLATELET VOLUME 8.2 FL (7.0-11.0); MONO % 10.6 % (0.0-8.0); MONOCYTE # 3.9 TH/MM3 (0-0.9); NEUT % 86.1 % (16.0-70.0); PLATELET COUNT 275 TH/MM3 (150-450); RED BLOOD COUNT 3.04 MIL/MM3 (4.50-5.90); RED CELL DISTRIBUTION WIDTH 14.3 % (11.6-17.2); WHITE BLOOD COUNT 37.1 TH/MM3 (4.0-11.0)
[2017-10-21 05:54] LABS: ALBUMIN 1.7 GM/DL (3.4-5.0); BICARBONATE 19.5 MEQ/L (21.0-32.0); CALCIUM 6.7 MG/DL (8.5-10.1); CALCIUM-PROTEIN CORRECTED 7.7 MG/DL (8.5-10.1); CREATININE 2.13 MG/DL (0.60-1.30); PHOSPHORUS 3.3 MG/DL (2.5-4.9); TOTAL BILIRUBIN ADULT 0.3 MG/DL (0.2-1.0); TOTAL PROTEIN 5.2 GM/DL (6.4-8.2)
[2017-10-21] MEDS: AZTREONAM INJ 1,000 MG in SODIUM CHLORIDE 0.9% INJ 100 ML IV SCH ×3 (08:13→23:31)
[2017-10-21] MEDS: FIDAXOMICIN 200 MG TAB PO SCH ×2 (08:16→21:00)
[2017-10-21] MEDS: LACTOBACILLUS ACIDOPHILUS TAB PO SCH ×3 (08:16→18:00)
[2017-10-21] MEDS: FERROUS SULFATE 325 MG (65 MG ELEMENTAL IRON) TAB PO SCH ×3 (08:16→18:30)
[2017-10-21] MEDS: VANCOMYCIN 500 MG VIAL (FOR ORAL USE ONLY) PO SCH ×4 (08:16→21:00)
[2017-10-21] MEDS: carBAMazepine 200 MG TAB PO SCH ×2 (08:16→21:00)
[2017-10-21] MEDS: CLOPIDOGREL 75 MG TAB PO SCH (08:16)
[2017-10-21] MEDS: PANTOPRAZOLE SOD 40 MG DELAYED RELEASE TAB PO SCH (08:16)
[2017-10-21] MEDS: HEPARIN SODIUM - SQ 10,000 UNITS/ML VIAL SQ SCH ×2 (08:16→21:00)
[2017-10-21] MEDS: FLUTICASONE PROPIONATE 50 MCG/ACT 16 GM NASAL SPRAY EACH NARE SCH (08:17)
[2017-10-21] MEDS: levETIRAcetam INJ 100 ML IV SCH ×2 (08:17→22:08)
[2017-10-21] MEDS: SODIUM CHLORIDE 0.9% FLUSH 10 ML FLUSH IV FLUSH SCH ×2 (08:17→22:08)
[2017-10-21] MEDS: FLUTICASONE 100 MCG/VILANTEROL 25 MCG INHALER INH SCH (08:18)
[2017-10-21 08:28] LABS: BANDS 8 % (0-6); LYMPHOCYTES 3 % (9-44); MONOCYTES 8 % (0-8); POLYS (SEG NEUTROPHILS) 81 % (16-70)
[2017-10-21 08:29] LABS: ACANTHOCYTES 1+ (NORMAL); BURR CELLS 1+ (NORMAL); KERATOCYTES OCC (NORMAL)
[2017-10-21] MEDS ORDERED: VANCOMYCIN 500 MG/NS 100 ML IV ONE ×4 (09:30→11:00)
--- NOTE | 2017-10-21 10:34 | HHI.NPPN ---
Subjective Renal Failure: Acute Additional Remarks Awake, dementia, no apparent distress. Review of Systems Gastrointestinal Gastrointestinal: Abdominal Pain, Nausea & Vomiting Objective Data Data Vital Signs Date Time Temp Pulse Resp B/P (MAP) Pulse Ox O2 Delivery O2 Flow Rate FiO2 10/21/17 10:00 85 10/21/17 08:00 97.9 88 21 117/59 (78) 92 10/21/17 08:00 88 10/21/17 06:00 114 10/21/17 04:00 97.1 113 27 92/62 (72) 67 10/21/17 04:00 113 10/21/17 03:54 111 106/65 10/21/17 02:00 124 10/21/17 00:36 129 132/72 10/21/17 00:33 126 80/52 10/21/17 00:00 131 10/21/17 00:00 97.2 131 20 106/58 (74) 93 10/20/17 22:00 161 10/20/17 20:00 91 10/20/17 20:00 91.0 91 21 105/51 (69) 100 10/20/17 18:00 96 10/20/17 16:00 98.0 88 20 99/54 (69) 92 10/20/17 16:00 96 10/20/17 14:00 96 10/20/17 12:00 98.0 83 25 136/81 (99) 89 10/20/17 12:00 96 -: 10/21/17 0413 10/21/17 0413 Microbiology 10/20/17 Aerobic Blood Culture, Received Pending 10/20/17 Anaerobic Blood Culture, Received Pending Tubes & Lines: Han Tubes & Lines Comment rectal bag Drip Comment bicarb at 100 cc/hr in D5W, 100 mEq Physical Exam General Appearance: Comfortable, Malnourished Eyes Eye Exam: Pupils Equal, Pupils Reactive Neck Neck Exam: Trachea Midline Pulmonary Resp Exam: Breath Sounds Equal, Decreased Bases, Diminished Breath Sounds Cardiology CV Exam: Good Perfusion, Irregular Gastrointestinal/Abdomen GI Exam: Bowel Sounds Present, Distended Musculoskeletal MS Exam: Joints Intact, Normal Tone, Unable to Ambulate Integumentary Skin Exam: Warm, Dry, Intact Extremeties Extremities Exam: No Edema, Pedal Pulses Palpable Neurologic Neuro Exam: Awake, Combative, Obtunded Psychiatric Psych Exam: Appropriate Responses Assessment/Plan Discussed Condition With: Patient Assessment Summary: GAIL/Acute Renal Failure, Acute Tubular Necrosis Problem List: (1) Acute renal failure (ARF) ICD Codes: N17.9 - Acute kidney failure, unspecified Plan: Tiffanie renal function at baseline GAIL most likely ATN secondary to prerenal azotemia . He was also given IV contrast on admission He has become oliguric. Renal US report reviewed, normal Continue bicarb gtt for metabolic acidosis He is NPO, failed swallow Avoid nephrotoxic agents, renally dose when appropriate Monitor blood pressure, hold antihypertensives, maintain MAP > 65mmHg Creatinine slightly improved today (2.56 -> 2.1). 500cc UOP/24 hours Continue IVFs with HCO3 at 100cc/hour. Increased HCO3 in IVFs (Now ordered for D5W + 150meq NaHCO3 @ 100cc/hour) Ideally can stop IV vancomycin given GAIL, follow with ID. Overall his prognosis is poor, and most likely will not tolerate and/or do well with dialysis Palliative has spoke with the family. They are receptive to transition to comfort care, and they will meet to discuss plans moving forward (2) Leukocytosis ICD Codes: D72.829 - Elevated white blood cell count, unspecified Status: Resolved Plan: Sepsis, ID following Antibiotics include PO Vanc, IV Flagyl, vanco enema, Dificid Has MRSA in urine (3) C. difficile diarrhea ICD Codes: A04.72 - Enterocolitis due to Clostridium difficile, not specified as recurrent Status: Acute Plan: see above on Contact precautions CT shows pancolitis (4) Dementia ICD Codes: F03.90 - Dementia Status: Chronic Plan: With encephalopathy due to infection and renal failure continue supportive care, fall precautions (5) COPD (chronic obstructive pulmonary disease) ICD Codes: J44.9 - Chronic obstructive pulmonary disease, unspecified Status: Chronic Plan: Continue to monitor. (6) Seizure disorder ICD Codes: G40.909 - Epilepsy, unspecified, not intractable, without status epilepticus Status: Chronic Plan: On Tegretol and Keppra Seizure precautions Gt Ambrocio MD October 21, 2017 10:34
[2017-10-21] MEDS: SODIUM BICARBONATE 8.4% INJ 150 MEQ in DEXTROSE 5% IN WATE 1000ML INJ 1,000 ML IV SCH ×4 (13:30→23:30)
--- NOTE | 2017-10-21 13:46 | EKG ---
Date Performed: 10/20/2017 Time Performed: 21:48:50 PTAGE: 87 years EKG: Atrial fibrillation with rapid ventricular response. Left axis deviation RBBB with left ant erior fascicular block Possible extensive infarct - age undetermined Abnormal ECG NO PREVIOUS TRACING DOCTOR: Alan Lentz Interpretating Date/Time 10/21/2017 13:44:03
--- NOTE | 2017-10-21 14:30 | HHI.IDPN ---
Subjective Subjective Remarks ID Xcover for Dr Paras ledezma was reviewed is an 87-year-old male with a past medical history significant for dementia, arthritis, prostate cancer, HTN, HLD, TIA, COPD, GERD, seizures, presented to the ED after being sent from [facility] due to worsening altered mental status and diarrhea. Due to patient's severe dementia, history is obtained from review of electronic medical record. Patient was found to be in sepsis with white count 29.5, fever of 102.[address] scan of the abdomen and pelvis revealed pancolitis most pronounced involving the ascending colon. Urinalysis was significant for MRSA. C diff testing was positive. Patient was started on oral vancomycin. Patient's white count continued to trend upwards and he was started on oral Flagyl and his vancomycin dose was increased. His white count today is 43.9 with left shift and bandemia. He is also found to have acute renal failure with elevated creatinine of 2.34 nephrology was consulted. Patient is acidotic with bicarb of 14.5 and is currently on bicarb drip. Infectious disease consultation has been requested for evaluation and management of severe C. difficile infection and MRSA in the urine. Patient seen and examined. He is currently afebrile. Patient has been hypotensive today. Blood pressure has improved to 109/55 from 89/44 earlier this morning. He appears extremely dry on exam. He can be heard audibly wheezing. Discussed with the nursing staff who states his urine output has been extremely low. He was given IV fluid bolus and is on 125 cc of maintenance fluids. Patient has had 5 blackish green sticky bowel movements today of moderate volume. Patient has previous urine cultures with MRSA. He also has a history of ESBL E. coli in the urine. Overnight events reviewed dw RN: cont to have laerge amount of liquid stool off pressors denies abd pain WBC are high, now up to 37K On RA No Nausea or vomiting. Antibiotics Vanco oral Vanco enema Dificid Flagyl also started on azacta, micafungin and given 1 dose of vanco iv Lines Line sites with no e.o infection Past Medical History Past Medical History Dementia COPD Hypertension Seizure disorder History of TIAs Hypertension Dyslipidemia Cardiovascular disease GERD Urinary incontinence Prostate cancer History of previous MRSA and ESBL E. coli in urine History of coagulase negative staph bacteremia Hypothyroidism Past Surgical History Percutaneous endoscopic gastrostomy placement in November 2014 status post removal Appendectomy Bilateral hip surgeries with hardware Left ear cancer surgery Bilateral cataracts Prostatectomy Right carotid endarterectomy Tonsillectomy Allergies: Coded Allergies: amoxicillin (Unverified Allergy, Severe, Shortness of Breath, 10/17/17) clavulanic acid (Unverified Allergy, Severe, Shortness of Breath, 10/17/17) imipramine (Unverified Allergy, Severe, SEIZURE, 10/17/17) primidone (Unverified Allergy, Severe, SEIZURE, 10/17/17) Sulfa (Sulfonamide Antibiotics) (Unverified Allergy, Unknown, Rash, ) Objective . Vital Signs Date Time Temp Pulse Resp B/P (MAP) Pulse Ox O2 Delivery O2 Flow Rate FiO2 10/21/17 12:00 86 10/21/17 10:40 Nasal Cannula 3.00 10/21/17 10:00 85 10/21/17 08:00 97.9 88 21 117/59 (78) 92 10/21/17 08:00 88 10/21/17 06:00 114 10/21/17 04:00 97.1 113 27 92/62 (72) 67 10/21/17 04:00 113 10/21/17 03:54 111 106/65 10/21/17 02:00 124 10/21/17 00:36 129 132/72 10/21/17 00:33 126 80/52 10/21/17 00:00 131 10/21/17 00:00 97.2 131 20 106/58 (74) 93 10/20/17 22:00 161 10/20/17 20:00 91 10/20/17 20:00 91.0 91 21 105/51 (69) 100 10/20/17 18:00 96 10/20/17 16:00 98.0 88 20 99/54 (69) 92 10/20/17 16:00 96 . Laboratory Tests Test 10/20/17 05:43 10/20/17 21:09 10/21/17 04:13 White Blood Count 46.4 TH/MM3 29.5 TH/MM3 37.1 TH/MM3 Red Blood Count 2.99 MIL/MM3 2.78 MIL/MM3 3.04 MIL/MM3 Hemoglobin 9.3 GM/DL 8.5 GM/DL 9.6 GM/DL Hematocrit 27.9 % 25.6 % 28.6 % Mean Corpuscular Volume 93.2 FL 92.1 FL 93.9 FL Mean Corpuscular Hemoglobin 31.2 PG 30.6 PG 31.4 PG Mean Corpuscular Hemoglobin Concent 33.5 % 33.2 % 33.4 % Red Cell Distribution Width 14.2 % 14.1 % 14.3 % Platelet Count 272 TH/MM3 241 TH/MM3 275 TH/MM3 Mean Platelet Volume 7.9 FL 8.0 FL 8.2 FL CBC Comment AUTO DIFF AUTO DIFF Differential Total Cells Counted 100 100 Neutrophils % (Manual) 77 % 81 % Band Neutrophils % 17 % 8 % Lymphocytes % 1 % 3 % Monocytes % 3 % 8 % Neutrophils # (Manual) 44.5 TH/MM3 33.0 TH/MM3 Myelocytes 2 % Differential Comment FINAL DIFF MANUAL FINAL DIFF MANUAL Toxic Granulation 1+ Platelet Estimate NORMAL NORMAL Platelet Morphology Comment NORMAL NORMAL Ovalocytes 1+ Acanthocytes 1+ 1+ Neutrophils (%) (Auto) 86.1 % Lymphocytes (%) (Auto) 2.5 % Monocytes (%) (Auto) 10.6 % Eosinophils (%) (Auto) 0.6 % Basophils (%) (Auto) 0.2 % Neutrophils # (Auto) 31.9 TH/MM3 Lymphocytes # (Auto) 0.9 TH/MM3 Monocytes # (Auto) 3.9 TH/MM3 Eosinophils # (Auto) 0.2 TH/MM3 Basophils # (Auto) 0.1 TH/MM3 [place] Cells 1+ Keratocytes OCC Laboratory Tests Test 10/19/17 17:13 10/19/17 20:05 10/20/17 05:43 10/20/17 21:09 Blood Urea Nitrogen 46 MG/DL 48 MG/DL 49 MG/DL Creatinine 2.56 MG/DL 2.70 MG/DL 2.50 MG/DL Random Glucose 135 MG/DL 159 MG/DL 159 MG/DL Total Protein 5.8 GM/DL 5.7 GM/DL 4.7 GM/DL Calcium Level 7.1 MG/DL 7.2 MG/DL 6.6 MG/DL Sodium Level 142 MEQ/L 142 MEQ/L 142 MEQ/L Potassium Level 3.9 MEQ/L 3.5 MEQ/L 3.1 MEQ/L Chloride Level 113 MEQ/L 112 MEQ/L 111 MEQ/L Carbon Dioxide Level 16.8 MEQ/L 15.8 MEQ/L 18.5 MEQ/L Anion Gap 12 MEQ/L 14 MEQ/L 13 MEQ/L Estimat Glomerular Filtration Rate 24 ML/MIN 22 ML/MIN 25 ML/MIN Lactic Acid Level 1.6 mmol/L 2.0 mmol/L Protein Corrected Calcium 7.8 MG/DL 7.8 MG/DL Magnesium Level 2.1 MG/DL 2.1 MG/DL 1.9 MG/DL Total Bilirubin 0.3 MG/DL 0.3 MG/DL Direct Bilirubin 0.1 MG/DL Indirect Bilirubin 0.2 MG/DL Aspartate Amino Transf (AST/SGOT) 19 U/L 20 U/L Alanine Aminotransferase (ALT/SGPT) 13 U/L 13 U/L Alkaline Phosphatase 64 U/L 50 U/L Ammonia 31 MCMOL/L Lactate Dehydrogenase 226 U/L Albumin 2.0 GM/DL 1.9 GM/DL 1.6 GM/DL Triglycerides Level 70 MG/DL Cholesterol Level 55 MG/DL LDL Cholesterol 16 MG/DL HDL Cholesterol 24.8 MG/DL Cholesterol/HDL Ratio 2.21 RATIO Amylase Level 67 U/L Lipase 47 U/L Random Cortisol 28.0 MCG/DL Phosphorus Level 4.3 MG/DL Test 10/21/17 04:13 Blood Urea Nitrogen 49 MG/DL Creatinine 2.13 MG/DL Random Glucose 126 MG/DL Total Protein 5.2 GM/DL Albumin 1.7 GM/DL Calcium Level 6.7 MG/DL Phosphorus Level 3.3 MG/DL Magnesium Level 2.0 MG/DL Alkaline Phosphatase 61 U/L Aspartate Amino Transf (AST/SGOT) 26 U/L Alanine Aminotransferase (ALT/SGPT) 16 U/L Total Bilirubin 0.3 MG/DL Sodium Level 142 MEQ/L Potassium Level 3.9 MEQ/L Chloride Level 111 MEQ/L Carbon Dioxide Level 19.5 MEQ/L Anion Gap 12 MEQ/L Estimat Glomerular Filtration Rate 30 ML/MIN Protein Corrected Calcium 7.7 MG/DL Microbiology Date/Time Source Procedure Growth Status 10/20/17 21:09 Blood Peripheral Aerobic Blood Culture - Preliminary NO GROWTH IN 1 DAY Resulted 10/20/17 21:09 Blood Peripheral Anaerobic Blood Culture - Preliminary NO GROWTH IN 1 DAY Resulted Imaging Last Impressions Abdomen/Pelvis CT 10/19/172041 Signed Impressions: Service Date/Time: October 22:34 - CONCLUSION: 1. Pancolitis without obstruction, perforation, or abscess. 2. Small volume ascites. Manish Jenkins Jr., MD Chest X-Ray 10/19/171802 Signed Impressions: Service Date/Time: October 18:17 - CONCLUSION: No acute disease. Yung Green MD Abdomen X-Ray 10/19/171802 Signed Impressions: Service Date/Time: October 18:24 - CONCLUSION: Nonspecific KUB with air seen throughout the bowel. This is likely secondary to ileus. This pattern is nonspecific. Yung Green MD Renal Ultrasound 10/19/17 0000 Signed Impressions: Service Date/Time: October 15:24 - CONCLUSION: 1. Increased echogenicity of the renal parenchyma bilaterally. This can be seen with chronic medical renal disease. 2. No hydronephrosis. Keo Trevizo MD Head CT 10/17/17 1042 Signed Impressions: Service Date/Time: Tuesday, October 17, 2017 11:07 - CONCLUSION: 1. No acute intracranial abnormality or significant interval change. Kwesi Humphreys MD Physical Exam GENERAL: This is a well-nourished, male patient, NAD. Awake. Able to follow simple commands. Confused. SKIN: No rashes, ecchymoses or lesions. Cool and dry. HEAD: Atraumatic. Normocephalic. No temporal or scalp tenderness. EYES: Pupils equal round and reactive. Extraocular motions intact. No scleral icterus. No injection or drainage. ENT: Nose without bleeding or purulent drainage. Throat without erythema, tonsillar hypertrophy or exudate. Uvula midline. Airway patent. Dry mucous membranes NECK: Trachea midline. No JVD or lymphadenopathy. Supple, nontender, no meningeal signs. CARDIOVASCULAR: Regular rate and rhythm without murmurs, gallops, or rubs. RESPIRATORY: Audibly wheezing. Diminished in all lung ashby. GASTROINTESTINAL: Abdomen firm, markedly distended, tender to palpation. Prominently tympanic to percussion No guarding or rebound tenderness. GENITOURINARY: Han catheter in place with extremely small amount of dark urine in the bag. MUSCULOSKELETAL: Extremities without clubbing, cyanosis, or edema. No joint tenderness, effusion, or edema noted. No calf tenderness. NEUROLOGICAL: Awake and alert. Disoriented. Non focal. PSYCHIATRIC: Calm and cooperative. Able to follow simple commands. PIV with no e/o infection. Assessment & Plan Remarks Severe sepsis with leukocytosis with elevated white count of 43.9, acidosis with bicarbonate 14.5, acute renal failure with creatinine of 2.34, hypotension and tachycardia and C. difficile positive diarrhea/colitis -CT of abdomen and pelvis revealed pancolitis Leukemoid reaction due to severe Cdiff. Non-anion gap metabolic acidosis suspect secondary to bicarb loss from ongoing diarrhea -on bicarb gtt Acute renal failure suspect secondary to hypotension and IV contrast -Given IV fluid bolus. Han catheter placed. -Nephrology following Acute metabolic encephalopathy secondary to active infection and dehydration MRSA urine, suspect contaminant/colonization Seizure disorder COPD, questionable acute exacerbation Dementia Hx of TIA GERD Hypertension, currently hypotensive Hypothyroidism RECS: Continue on oral vancomycin and lactobacillus Continue Vanco enema Continue IV Flagyl continue Dificid Monitor kidney function. Avoid nephrotoxic agents. Strict I's and O's Continue to monitor clinical progress Follow cultures Follow clinically. KUB to monitor gut distention dw primary care nurse practitioner will see pt today, possible hospice chk vanco level cont micafungin, azactam for now Stefany Zuluaga MD October 21, 2017 14:30
--- NOTE | 2017-10-21 15:45 | HHI.CCPN ---
Subjective Remarks/Hospital Course This is an 87-year-old male. Date of admission 10/17/2017. Date of consultation 10/19/2017. Patient with many comorbidities including dementia disorder, TIAs, seizures, prostate cancer, COPD, gastroesophageal reflux disease , hypertension, dyslipidemia, esophageal strictures, left bundle branch block, ventricular arterial disease and atherosclerotic heart disease. History of pill esophagitis/esophageal strictures with history of PEG tube placement. Patient was admitted to the hospital service on 10/17 with diarrhea/abdominal pain. CT abdomen/pelvis revealed pancolitis. Patient originally treated with metronidazole Patient with worsening status with increasing creatinine, WBCs. Infectious disease nephrology consult. Abdomen more distended today and hypotensive with systolic blood pressures in the 80s on the floor. Received 2 L normal saline. Due to clinical status, infectious disease recommended ICU transfer. On evaluation of patient with abdomen firm but not surgical with no rigidity. CT abdomen/pelvis currently pending. Lactate and all laboratories pending at time of dictation. Subjective: 10/20: T-max 99.3 persistent leukocytosis. Patient continues on sodium bicarbonate infusion. Palliative medicine has been consulted for defining goals of care. 10/21: Patient failed swallow exam 2. Overnight, unable to pass NG tube plan for gastroenterology to assist. WBC count continues to be elevated. Patient noted to have large amount of coffee-ground emesis this afternoon. KUB pending. Serial hemoglobin and hematocrits obtained. Healthcare proxy at bedside tentative plan for possible hospice initiation.. Nephrology following , sodium bicarbonate concentration increased. Objective Vital Signs Date Time Temp Pulse Resp B/P (MAP) Pulse Ox O2 Delivery O2 Flow Rate FiO2 10/21/17 14:00 87 10/21/17 12:00 97.6 22 128/57 (80) 93 10/21/17 10:40 Nasal Cannula 3.00 Intake and Output 10/21/17 10/21/17 10/21/17 07:59 15:59 23:59 Intake Total 2731 ml Output Total 1250 ml Balance 1481 ml Result Diagram: 10/21/17 0413 10/21/17 0413 Imaging Last Impressions Abdomen/Pelvis CT 10/19/172041 Signed Impressions: Service Date/Time: October 22:34 - CONCLUSION: 1. Pancolitis without obstruction, perforation, or abscess. 2. Small volume ascites. Manish Jenkins Jr., MD Chest X-Ray 10/19/171802 Signed Impressions: Service Date/Time: October 18:17 - CONCLUSION: No acute disease. Yung Green MD Abdomen X-Ray 10/19/171802 Signed Impressions: Service Date/Time: October 18:24 - CONCLUSION: Nonspecific KUB with air seen throughout the bowel. This is likely secondary to ileus. This pattern is nonspecific. Yung Green MD Renal Ultrasound 10/19/17 0000 Signed Impressions: Service Date/Time: October 15:24 - CONCLUSION: 1. Increased echogenicity of the renal parenchyma bilaterally. This can be seen with chronic medical renal disease. 2. No hydronephrosis. Keo Trevizo MD Head CT 10/17/171041 Signed Impressions: Service Date/Time: Tuesday, October 17, 2017 11:07 - CONCLUSION: 1. No acute intracranial abnormality or significant interval change. Kwesi Humphreys MD Last Impressions Renal Ultrasound 10/19/17 Signed Impressions: Service Date/Time: October 15:24 - CONCLUSION: 1. Increased echogenicity of the renal parenchyma bilaterally. This can be seen with chronic medical renal disease. 2. No hydronephrosis. Keo Trevizo MD Head CT 10/17/17 1042 Signed Impressions: Service Date/Time: Tuesday, October 17, 2017 11:07 - CONCLUSION: 1. No acute intracranial abnormality or significant interval change. Kwesi Humphreys MD Chest X-Ray 10/17/171041 Signed Impressions: Service Date/Time: Tuesday, October 17, 2017 11:13 - CONCLUSION: No acute disease. Shane Pro MD Abdomen/Pelvis CT 10/17/17 0000 Signed Impressions: Service Date/Time: Tuesday, October 17, 2017 19:53 - CONCLUSION: 1. Gould colitis but most pronounced involving the ascending colon. Manish Jenkins Jr., MD Objective Remarks GENERAL: 87-year-old male currently resting in bed in no acute distress SKIN: Warm and dry. HEAD: Atraumatic. Normocephalic. EYES: Pupils equal and round. No scleral icterus. No injection or drainage. ENT: No nasal bleeding or discharge. Mucous membranes pink and dry. Oropharynx without erythema or thrush NECK: Trachea midline. No JVD. CARDIOVASCULAR: Regular rate and rhythm. S1, S2. No S4. Without murmur RESPIRATORY: Positive audible and expiratory wheezing appreciated. Symmetrical excursion GASTROINTESTINAL: Abdomen s distended. Tender to palpation worse in the left lower quadrant. Voluntary guarding. No rigidity. Hypoactive bowel sounds are appreciated. MUSCULOSKELETAL: Extremities with trace lower extremity edema NEUROLOGICAL: Awake and alert. No obvious cranial nerve deficits. Motor grossly within normal limits. Five out of 5 muscle strength in the arms and legs. Normal speech. 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 There is compensatory enlargement of the posterior horns of the lateral ventricles stable from prior exam Acetaminophen 1 g IV every 8 hours as needed fever Currently on levetiracetam 500 mg p.o. 3 times daily, and carbamazepine 200 mg p.o. twice daily Holding gabapentin 300 mg 3 times daily with altered mental status Holding sertraline 25 mg p.o. daily for depression. Resume when clinically indicated CV: Essential hypertension Hyperlipidemia Right bundle branch block Peripheral arterial disease Atherosclerotic vascular disease Echocardiogram 2017 revealed ejection fraction of 55-60%. No regional wall motion abnormality. Mild TR. Holding lisinopril 5 mg p.o. daily/home medication and propranolol 10 mg p.o. twice daily/home medication while hypertensive Currently on atorvastatin 20 mg p.o. daily for dyslipidemia Currently on sterile water with bicarbonate at 100 cc an hour. Received 2 L normal saline floor. Troponin on admission was 0.06 Currently on clopidogrel 75 mg p.o. daily Resp: COPD Nasal cannula to maintain saturations greater than or equal to 92% Incentive spirometry while awake Follow-up on chest x-ray On fluticasone/Vilanterol 1 inhalation daily Placed on albuterol/ipratropium aerosols every 6 hours with albuterol aerosols every 2 hours as needed dyspnea Currently on montelukast 10 mg p.o. daily GI: Gastroesophageal reflux disease History of esophageal stricture History of pill dysphagia History of PEG tube placement status post removal Nausea and vomiting CT abdomen/pelvis on admission revealed pancolitis including the ascending colon. Currently n.p.o. status Multiple attempts at with NG tube placement Pantoprazole for GI prophylaxis GI consult for placement of NG tube Follow-up KUB : History of prostate cancer status post TURP Han catheter if indicated Endo: Hypothyroidism Continue levothyroxine 50 mcg p.o. daily. TSH 2.28 on admission Sliding scale insulin if indicated to maintain euglycemia Renal: Acute kidney injury Renal ultrasound revealed increased echogenicity of the kidneys indicative of chronic medical disease. No hydronephrosis. Creatinine currently 2.56. Currently being followed by nephrology Heme: Normocytic anemia Monitor CBC, coags Transfuse for hemoglobin less than 7 Obtain Serial Hgb and Hct ID: C. difficile colitis Currently on fiaxomicin 200 mg p.o. twice daily 10 days, vancomycin 500 mg p.o. 4 times daily and metronidazole 500 mg IV every 6 hours Lactobacillus per ID Vancomycin in about 250 mg in 200 cc tap water every 6 hours ordered. ID request FEN: Replace electrolytes as clinically indicated MSK: PT evaluate and treat Access Utilized peripheral IV. Central line if indicated Prophylaxis GI-pantoprazole -DVT -SCD/heparin subcu Level 2 F/U Plan discussion with healthcare surrogate tentative plans for possible hospice placement. Physician Marylou Richardson MD October 21, 2017 15:45
--- NOTE | 2017-10-21 16:27 | RADRPT ---
EXAM DATE/TIME: 10/21/2017 15:43 [place] COMPARISON: ABDOMEN KUB ONLY, October 19, 2017, 18:24. INDICATIONS : Abdominal distention. MEDICAL HISTORY : Hypertension. Carcinoma, prostatic. SURGICAL HISTORY : Appendectomy. Prostatectomy. TURP. ENCOUNTER: Initial ACUITY: 1 day PAIN SCORE: 7/10 LOCATION: Abdomen FINDINGS: Redemonstration of multiple loops of minimally distended air-filled small bowel throughout the abdome n with general paucity of colonic bowel gas. No gross pneumatosis or free air although evaluation is limited by patient's body habitus and supine technique. Remainder of exam is unchanged. CONCLUSION: Stable examination with mild diffuse gaseous distention of the small bowel consistent with adynamic i leus. Kwesi Humphreys MD on October 21, 2017 at 16:23 Board Certified Radiologist. This report was verified electronically.
[2017-10-21 16:34] LABS: HEMATOCRIT 30.4 % (39.0-51.0); HEMOGLOBIN 10.1 GM/DL (13.0-17.0)
--- NOTE | 2017-10-21 16:44 | PD.CONS ---
HPI History of Present Illness This is a 87 year old M with PMH significant for HLD, HTN, prostate cancer, arthritis, dementia, GERD, COPD, and seizures who was brought to the ER from his assisted living facility for evaluation of worsening altered mental status and diarrhea. Pt was transferred to ICU per ID recommendations due to worsening abdominal distension, hypotension, and worsening leukocytosis in the setting of C. Diff. Pt currently on oral Vancomycin, IV Flagyl, and Dificid. Pt has advanced dementia and is unable to provide much of a history, he is oriented to person and place. No previous hospitalization for C. Diff seen in chart. CT abdomen and pelvis consistent with pancolitis. Our service has been consulted to evaluate patient for episode of coffee ground emesis earlier today as well as possible endoscopic NG tube placement. Per RN pt had one episode of coffee ground emesis, pt reports some continued nausea. RN states previous attempts at NG placement has been unsuccessful. Pt is known to our service and has had previous EGD with dilatations done. According to RN he has been having dysphagia and has failed his swallow evals. EGD with dilatation (Jul 2017) --> Z line was located 36 cm from the incisors. There was a short stricture in the distal esophagus, multiple biopsies performed, stricture dilated using a 16 mm, mild antral gastropathy, normal duodenal mucosa in the entire examined duodenum , hiatal hernia. Pathology (gastric body and antral mucosa) mild chronic nonspecific antral gastritis negative for intestinal metaplasia and dysplasia ( gastric mucosal tissue) severe chronic inflammatory changes negative for intestinal metaplasia and dysplasia, clinically stricture. He has had G-tube in the past, in 2014, has since been removed. Hospice consult has been placed and they are waiting to speak to someone. (Masha Joy) PFSH Past Medical History Dementia Hypertension Hyperlipidemia TIA COPD GERD Complex partial seizures history Osteoarthritis Peripheral neuropathy Prostate cancer History of T12-L1 compression fracture Seasonal allergy Depression . Past Surgical History Bilateral cataract removal Left ear cancer surgery tonsillectomy PEG tube placement/removal Appendectomy TURP Bilateral hip fracture repair Right knee arthroscopic surgery Right carotid endarterectomy . (Masha Joy) Coded Allergies: amoxicillin (Unverified Allergy, Severe, Shortness of Breath, 10/17/17) clavulanic acid (Unverified Allergy, Severe, Shortness of Breath, 10/17/17) imipramine (Unverified Allergy, Severe, SEIZURE, 5/15/18) primidone (Unverified Allergy, Severe, SEIZURE, 10/17/17) Sulfa (Sulfonamide Antibiotics) (Unverified Allergy, Unknown, Rash, ) Family History Family history of cancer. . Social History Obtained from EMR: Quit smoking tobacco 25+ years ago Denies alcohol use Denies illicit drug use (Masha Joy) Review of Systems Gastrointestinal: COMPLAINS OF: Abdominal pain, Diarrhea, Nausea, Vomiting, Difficulty Swallowing, Swelling of Abdomen, Hematemesis, DENIES: Bloody stools ( Masha Joy) GI Exam Vitals I&O Vital Signs Date Time Temp Pulse Resp B/P (MAP) Pulse Ox O2 Delivery O2 Flow Rate FiO2 10/21/17 14:00 87 10/21/17 12:00 86 10/21/17 12:00 97.6 86 22 128/57 (80) 93 10/21/17 10:40 Nasal Cannula 3.00 10/21/17 10:00 85 10/21/17 08:00 97.9 88 21 117/59 (78) 92 10/21/17 08:00 88 10/21/17 06:00 114 10/21/17 04:00 97.1 113 27 92/62 (72) 67 10/21/17 04:00 113 10/21/17 03:54 111 106/65 10/21/17 02:00 124 10/21/17 00:36 129 132/72 10/21/17 00:33 126 80/52 10/21/17 00:00 131 10/21/17 00:00 97.2 131 20 106/58 (74) 93 10/20/17 22:00 161 10/20/17 20:00 91 10/20/17 20:00 91.0 91 21 105/51 (69) 100 10/20/17 18:00 96 I/O 10/20/17 10/20/17 10/20/17 10/21/17 10/21/17 10/21/17 07:00 15:00 23:00 07:00 15:00 23:00 Intake Total 1520 ml 200 ml 100 ml 2731 ml Output Total 200 ml 75 ml 1250 ml Balance 1320 ml 200 ml 25 ml 1481 ml Intake Oral 120 ml 100 ml IV Total 1400 ml 200 ml 2731 ml Output Urine Total 200 ml 75 ml 450 ml Stool Total 250 ml Emesis 550 ml # Bowel Movements 5 Imaging Last Impressions Abdomen/Pelvis CT 10/19/172 Signed Impressions: Service Date/Time: October 22:34 - CONCLUSION: 1. Pancolitis without obstruction, perforation, or abscess. 2. Small volume ascites. Manish Jenkins Jr., MD Chest X-Ray 10/19/171802 Signed Impressions: Service Date/Time: October 18:17 - CONCLUSION: No acute disease. Yung Green MD Abdomen X-Ray 10/19/171802 Signed Impressions: Service Date/Time: October 18:24 - CONCLUSION: Nonspecific KUB with air seen throughout the bowel. This is likely secondary to ileus. This pattern is nonspecific. Yung Green MD Renal Ultrasound 10/19/17 0000 Signed Impressions: Service Date/Time: October 15:24 - CONCLUSION: 1. Increased echogenicity of the renal parenchyma bilaterally. This can be seen with chronic medical renal disease. 2. No hydronephrosis. Keo Trevizo MD Head CT 10/17/17 1042 Signed Impressions: Service Date/Time: Tuesday, October 17, 2017 11:07 - CONCLUSION: 1. No acute intracranial abnormality or significant interval change. Kwesi Humphreys MD Laboratory Test 10/20/17 21:09 10/21/17 04:13 10/21/17 16:05 White Blood Count 29.5 TH/MM3 37.1 TH/MM3 Red Blood Count 2.78 MIL/MM3 3.04 MIL/MM3 Hemoglobin 8.5 GM/DL 9.6 GM/DL Hematocrit 25.6 % 28.6 % Mean Corpuscular Volume 92.1 FL 93.9 FL Mean Corpuscular Hemoglobin 30.6 PG 31.4 PG Mean Corpuscular Hemoglobin Concent 33.2 % 33.4 % Red Cell Distribution Width 14.1 % 14.3 % Platelet Count 241 TH/MM3 275 TH/MM3 Mean Platelet Volume 8.0 FL 8.2 FL Blood Urea Nitrogen 49 MG/DL 49 MG/DL Creatinine 2.50 MG/DL 2.13 MG/DL Random Glucose 159 MG/DL 126 MG/DL Total Protein 4.7 GM/DL 5.2 GM/DL Albumin 1.6 GM/DL 1.7 GM/DL Calcium Level 6.6 MG/DL 6.7 MG/DL Magnesium Level 1.9 MG/DL 2.0 MG/DL Alkaline Phosphatase 50 U/L 61 U/L Aspartate Amino Transf (AST/SGOT) 20 U/L 26 U/L Alanine Aminotransferase (ALT/SGPT) 13 U/L 16 U/L Total Bilirubin 0.3 MG/DL 0.3 MG/DL Sodium Level 142 MEQ/L 142 MEQ/L Potassium Level 3.1 MEQ/L 3.9 MEQ/L Chloride Level 111 MEQ/L 111 MEQ/L Carbon Dioxide Level 18.5 MEQ/L 19.5 MEQ/L Anion Gap 13 MEQ/L 12 MEQ/L Estimat Glomerular Filtration Rate 25 ML/MIN 30 ML/MIN Protein Corrected Calcium 7.8 MG/DL 7.7 MG/DL Neutrophils (%) (Auto) 86.1 % Lymphocytes (%) (Auto) 2.5 % Monocytes (%) (Auto) 10.6 % Eosinophils (%) (Auto) 0.6 % Basophils (%) (Auto) 0.2 % Neutrophils # (Auto) 31.9 TH/MM3 Lymphocytes # (Auto) 0.9 TH/MM3 Monocytes # (Auto) 3.9 TH/MM3 Eosinophils # (Auto) 0.2 TH/MM3 Basophils # (Auto) 0.1 TH/MM3 CBC Comment AUTO DIFF Differential Total Cells Counted 100 Neutrophils % (Manual) 81 % Band Neutrophils % 8 % Lymphocytes % 3 % Monocytes % 8 % Neutrophils # (Manual) 33.0 TH/MM3 Differential Comment FINAL DIFF MANUAL Platelet Estimate NORMAL Platelet Morphology Comment NORMAL Palomo Cells 1+ Acanthocytes 1+ Keratocytes OCC Phosphorus Level 3.3 MG/DL Date/Time Source Procedure Growth Status 10/20/17 21:09 Blood Peripheral Aerobic Blood Culture - Preliminary NO GROWTH IN 1 DAY Resulted 10/20/17 21:09 Blood Peripheral Anaerobic Blood Culture - Preliminary NO GROWTH IN 1 DAY Resulted 10/17/17 10:50 Stool Stool Stool Occult Blood (JONNA) - Final HEMOCCULT NEGATIVE Complete 10/17/17 13:00 Urine Catheterized Urine Urine Culture - Final S. Aureus Mrsa Complete Physical Examination HEENT: Normocephalic; atraumatic CHEST: Even/unlabored CARDIAC: RRR ABDOMEN: Distended, firm, nontender, bowel sounds active EXTREMITIES: No clubbing, cyanosis, or edema. SKIN: Pale DISTILLERY MILLER: Alert and oriented to person and place (Masha Joy) Assessment and Plan Plan Assessment: - Coffee ground emesis- one episode earlier today H/H has been fairly stable since admission. Last EGD in Jul [address] Guillaume dilatation (Jul 2017) --> Z line was located 36 cm from the incisors. There was a short stricture in the distal esophagus, multiple biopsies performed, stricture dilated using a 16 mm, mild antral gastropathy, normal duodenal mucosa in the entire examined duodenum, hiatal hernia. Pathology (gastric body and antral mucosa) mild chronic nonspecific antral gastritis negative for intestinal metaplasia and dysplasia (gastric mucosal tissue) severe chronic inflammatory changes negative for intestinal metaplasia and dysplasia, clinically stricture. Per RN multiple attempts at NG tube has been unsuccessful - Dysphagia- History of esophageal stricture as noted above, per POA at bedside pt normally receives relief of symptoms for about a year after dilatation. Per RN has failed swallow eval. Pt previously had G-tube in 2014, has since been removed - C. Diff colitis CT abdomen and pelvis reveals pancolitis ID following- Dificid, Vanco, Flagyl Hypotension- currently BP stable- Jere on hold Plan: Try to place Dobhoff for decompression EGD with NG placement for decompression of stomach plan for tomorrow if not going to Hospice Obtain consent Keep NPO Serial H/H Transfuse as needed Protonix Abx per ID Further recommendations based on clinical course Pt has been seen and examined by myself and Dr. Faustin and this note is written on her behalf (Masha Joy) Masha Joy October 21, 2017 16:44 Amy Faustin MD October 21, 2017 18:10
[2017-10-21] MEDS: ATORVASTATIN 20 MG TAB PO SCH (21:00)
[2017-10-21] MEDS: MONTELUKAST SODIUM 10 MG TAB PO SCH (21:00)
[2017-10-21 22:37] LABS: HEMOGLOBIN 9.5 GM/DL (13.0-17.0)
[2017-10-22] VITALS (12 sets, daily range): BP systolic 159–198; BP diastolic 71–83; PULSE 89–140; RESP 21–33; TEMP 97.9–98.8; O2SAT 92–100
[2017-10-22] MEDS ORDERED: hydrALAZINE HCL 20 MG/ML VIAL IV ONE (00:30)
[2017-10-22] MEDS: SODIUM BICARBONATE 8.4% INJ 150 MEQ in DEXTROSE 5% IN WATE 1000ML INJ 1,000 ML IV SCH ×4 (00:32→16:40)
[2017-10-22] MEDS: CHLORHEXIDINE GLUCONATE 2 % 1 PACK (2 CLOTHS)(taper/protocol) TOPICAL SCH (04:00)
[2017-10-22] MEDS: RESP: ALBUTEROL 2.5 MG/IPRATROPIUM 0.5 MG NEB (SCH) NEB ×4 (04:00→20:15)
[2017-10-22] MEDS: METOPROLOL TARTRATE 5 MG/5 ML VIAL IV PUSH PRN ×3 (05:19→05:45)
[2017-10-22] MEDS: metroNIDAZOLE 500 MG INJ 100 ML IV SCH ×4 (05:44→23:52)
[2017-10-22] MEDS: VANCOMYCIN INJ 500 MG in SODIUM CHLORIDE 0.9% IRR BTL 250 ML IRRIGATION SCH ×4 (05:44→23:52)
[2017-10-22] MEDS: LEVOTHYROXINE SODIUM 50 MCG TAB PO SCH (05:46)
[2017-10-22 06:36] LABS: BICARBONATE 26.7 MEQ/L (21.0-32.0); CALCIUM 6.9 MG/DL (8.5-10.1); CREATININE 1.2 MG/DL (0.60-1.30); PHOSPHORUS 1.8 MG/DL (2.5-4.9); RANDOM VANCOMYCIN 13.1 COMMENT
[2017-10-22 07:24] LABS: AUTOMATED NEUTROPHIL # 23.8 TH/MM3 (1.8-7.7); BASOPHIL % 0.1 % (0.0-2.0); EOSINOPHIL # 0.1 TH/MM3 (0-0.4); EOSINOPHIL % 0.3 % (0.0-4.0); HEMATOCRIT 29.4 % (39.0-51.0); LYMPH % 2.7 % (9.0-44.0); LYMPHOCYTE # 0.8 TH/MM3 (1.0-4.8); MEAN CELL VOLUME 91.7 FL (80.0-100.0); MEAN CORPUSCULAR HEMOGLOBIN 31.3 PG (27.0-34.0); MEAN CORPUSCULAR HGB CONC 34.1 % (32.0-36.0); MEAN PLATELET VOLUME 8.1 FL (7.0-11.0); MONO % 11.6 % (0.0-8.0); MONOCYTE # 3.2 TH/MM3 (0-0.9); NEUT % 85.3 % (16.0-70.0); PLATELET COUNT 276 TH/MM3 (150-450); RED BLOOD COUNT 3.21 MIL/MM3 (4.50-5.90); RED CELL DISTRIBUTION WIDTH 13.9 % (11.6-17.2); WHITE BLOOD COUNT 27.8 TH/MM3 (4.0-11.0)
[2017-10-22 07:48] LABS: CALCIUM-PROTEIN CORRECTED 7.8 MG/DL (8.5-10.1); TOTAL PROTEIN 5.4 GM/DL (6.4-8.2)
[2017-10-22] MEDS: CLOPIDOGREL 75 MG TAB PO SCH (08:45)
[2017-10-22] MEDS: AZTREONAM INJ 1,000 MG in SODIUM CHLORIDE 0.9% INJ 100 ML IV SCH ×3 (08:45→23:52)
[2017-10-22] MEDS: PANTOPRAZOLE SOD 40 MG DELAYED RELEASE TAB PO SCH (08:45)
[2017-10-22] MEDS: SODIUM CHLORIDE 0.9% FLUSH 10 ML FLUSH IV FLUSH SCH ×2 (08:45→21:05)
[2017-10-22] MEDS: VANCOMYCIN 500 MG VIAL (FOR ORAL USE ONLY) PO SCH ×4 (08:45→20:57)
[2017-10-22] MEDS: carBAMazepine 200 MG TAB PO SCH ×2 (08:45→20:57)
[2017-10-22] MEDS: FERROUS SULFATE 325 MG (65 MG ELEMENTAL IRON) TAB PO SCH ×3 (08:45→18:49)
[2017-10-22] MEDS: levETIRAcetam INJ 100 ML IV SCH ×2 (08:45→20:56)
[2017-10-22] MEDS: FLUTICASONE PROPIONATE 50 MCG/ACT 16 GM NASAL SPRAY EACH NARE SCH (08:46)
[2017-10-22] MEDS: LACTOBACILLUS ACIDOPHILUS TAB PO SCH ×3 (08:46→18:49)
[2017-10-22] MEDS: FIDAXOMICIN 200 MG TAB PO SCH ×2 (08:46→20:57)
[2017-10-22] MEDS: FLUTICASONE 100 MCG/VILANTEROL 25 MCG INHALER INH SCH (08:46)
[2017-10-22] MEDS: HEPARIN SODIUM - SQ 10,000 UNITS/ML VIAL SQ SCH ×2 (09:00→20:58)
[2017-10-22 10:34] LABS: BANDS 3 % (0-6); LYMPHOCYTES 1 % (9-44); MONOCYTES 13 % (0-8); NEUTROPHIL # MANUAL DIFF 23.9 TH/MM3 (1.8-7.7); POLYS (SEG NEUTROPHILS) 83 % (16-70)
[2017-10-22 10:35] LABS: OVALOCYTES 1+ (NORMAL)
[2017-10-22] MEDS ORDERED: POTASSIUM PHOSPHATE INJ 30 MMOL in SODIUM CHLOR 0.9% 250 ML INJ 250 ML IV ONE (10:45)
[2017-10-22] MEDS ORDERED: POTASSIUM CHLOR 40 MEQ PREMIX 100 ML IV ONE (10:45)
--- NOTE | 2017-10-22 10:47 | HHI.NPPN ---
Subjective Renal Failure: Acute Additional Remarks Awake, dementia, no apparent distress. Ongoing diarrhea Review of Systems Gastrointestinal Gastrointestinal: Abdominal Pain, Nausea & Vomiting Objective Data Data Vital Signs Date Time Temp Pulse Resp B/P (MAP) Pulse Ox O2 Delivery O2 Flow Rate FiO2 10/22/17 10:00 92 10/22/17 09:44 Nasal Cannula 5.00 10/22/17 08:00 97.9 122 30 191/82 (118) 92 10/22/17 08:00 122 10/22/17 06:00 121 10/22/17 04:00 140 10/22/17 04:00 98.4 140 33 167/83 (111) 92 10/22/17 02:00 103 10/22/17 00:00 89 10/22/17 00:00 98.6 89 25 198/81 (120) 100 10/21/17 22:00 88 10/21/17 20:00 93 10/21/17 20:00 99.2 93 21 160/68 (98) 100 10/21/17 18:00 98 10/21/17 16:00 97.8 90 26 149/64 (92) 87 10/21/17 16:00 90 10/21/17 14:00 87 10/21/17 12:00 86 10/21/17 12:00 97.6 86 22 128/57 (80) 93 -: 10/22/17 0410 10/22/17 0410 Tubes & Lines: Han Tubes & Lines Comment rectal bag Drip Comment bicarb at 100 cc/hr in D5W, 100 mEq Physical Exam General Appearance: Comfortable, Malnourished Eyes Eye Exam: Pupils Equal, Pupils Reactive Neck Neck Exam: Trachea Midline Pulmonary Resp Exam: Breath Sounds Equal, Decreased Bases, Diminished Breath Sounds Cardiology CV Exam: Good Perfusion, Irregular Gastrointestinal/Abdomen GI Exam: Bowel Sounds Present, Distended Musculoskeletal MS Exam: Joints Intact, Normal Tone, Unable to Ambulate Integumentary Skin Exam: Warm, Dry, Intact Extremeties Extremities Exam: No Edema, Pedal Pulses Palpable Neurologic Neuro Exam: Awake, Combative, Obtunded Psychiatric Psych Exam: Appropriate Responses Assessment/Plan Discussed Condition With: Patient Assessment Summary: GAIL/Acute Renal Failure, Acute Tubular Necrosis Problem List: (1) Acute renal failure (ARF) ICD Codes: N17.9 - Acute kidney failure, unspecified Plan: Tiffanie renal function at baseline GAIL most likely ATN secondary to prerenal azotemia . He was also given IV contrast on admission Renal US report reviewed, normal UOP improving - 800cc/ 24 hours Creatinine improved today (2.56 -> 2.1 -> 1.2) He is NPO, failed swallow Ongoing diarrhea - with hypokalemia and hypophosphatemia today. Will replace K+ , PO4 Now with coffee ground emesis - planned EGD today. (2) Leukocytosis ICD Codes: D72.829 - Elevated white blood cell count, unspecified Status: Resolved Plan: Sepsis, ID following Antibiotics include PO Vanc, IV Flagyl, vanco enema, Dificid Has MRSA in urine (3) C. difficile diarrhea ICD Codes: A04.72 - Enterocolitis due to Clostridium difficile, not specified as recurrent Status: Acute Plan: see above on Contact precautions CT shows pancolitis (4) Dementia ICD Codes: F03.90 - Dementia Status: Chronic Plan: With encephalopathy due to infection and renal failure continue supportive care, fall precautions (5) COPD (chronic obstructive pulmonary disease) ICD Codes: J44.9 - Chronic obstructive pulmonary disease, unspecified Status: Chronic Plan: Continue to monitor. (6) Seizure disorder ICD Codes: G40.909 - Epilepsy, unspecified, not intractable, without status epilepticus Status: Chronic Plan: On Tegretol and Keppra Seizure precautions Gt Ambrocio MD October 22, 2017 10:47
[2017-10-22 11:33] LABS: HEMATOCRIT 30.8 % (39.0-51.0); HEMOGLOBIN 10.3 GM/DL (13.0-17.0)
--- NOTE | 2017-10-22 11:59 | GIPROC ---
[facility] [address] [facility]. [facility], [id number] EGD PROCEDURE REPORT EXAM DATE: 10/22/2017 PATIENT NAME: Manish Lucas MR #: [id number] BIRTHDATE: 1930 ATTENDING: Amy Faustin MD ORDER #: [id number] INSTRUCTOR BUSINESS EDUCATION: Sal Morley and Latricia Knowles STATUS: inpatient INDICATIONS: The patient is a 87 yr old male here for an EGD due to inability to place ngt abdominal distension ileus gi bleeding PROCEDURE PERFORMED: EGD, diagnostic egd with ngt placement MEDICATIONS: None and Per Anesthesia. TOPICAL ANESTHETIC: none CONSENT: The patient understands the risks and benefits of the procedure and understands that these risks include, but are not limited to: sedation, allergic reaction, infection, perforation and/or bleeding. Alternative means of evaluation and treatment include, among others: physical exam, x-rays, and/or surgical intervention. The patient elects to proceed with this endoscopic procedure. medical equipment was checked for proper function. Hand hygiene and appropriate measures for infection prevention was taken. After the risks, benefits and alternatives of the procedure were thoroughly explained, Informed consent was verified, confirmed and timeout was successfully executed by the treatment team. The patient was anesthetized with topical anesthesia and the Pentax [id number] endoscope was introduced through the mouth and advanced to the second portion of the duodenum. Retroflexed views revealed a hiatal hernia The gastroscope was then slowly withdrawn and removed. 400 ml of gastric juice suctioned NGT placed -placement documented endoscopically. ADVERSE EVENTS: There were no complications. IMPRESSIONS: 1. 400 ml of gastric juice suctioned NGT placed -placement documented endoscopically 2. Retroflexed views revealed a hiatal hernia RECOMMENDATIONS: 1. Anti-reflux regimen 2. Start PPI 3. Npo except medication ngt to suction PATIENT CONDITION: stable DISPOSITION: Inpatient REPEAT EXAM: Return as needed for EGD Amy Faustin MD eSigned: Amy Faustin MD 10/22/2017 11:58 AM cc: PATIENT NAME: Manish Lucas MR#: [id number]
[2017-10-22] MEDS ORDERED: DEXAMETHASONE SOD PHOS 4 MG/ML VIAL IV ONE (12:00)
[2017-10-22] MEDS ORDERED: SODIUM CHLORIDE 0.9% 10 ML VIAL IV ONE (12:00)
[2017-10-22] MEDS ORDERED: LIDOCAINE HCL 1% PF 5 ML SYRINGE OTHER ONE (12:00)
[2017-10-22] MEDS ORDERED: PROPOFOL 200 MG/20 ML AMP IV ONE (12:00)
[2017-10-22] MEDS ORDERED: SODIUM CHLORIDE 0.9% 10 ML VIAL IV FLUSH ONE (12:00)
[2017-10-22] MEDS ORDERED: FAMOTIDINE 20 MG/2 ML VIAL ONE (12:09)
[2017-10-22] MEDS ORDERED: *RESP: ALBUTEROL 2.5 MG/3 ML NEB (PRN) PERIprocedural Use ONLY NEB ONE (12:42)
[2017-10-22] MEDS ORDERED: DO NOT ADM ANY ANTICOAGULANT DRUGS PRN (13:00)
[2017-10-22] MEDS: POTASSIUM CHLOR 20 MEQ PREMIX 100 ML IV SCH ×2 (13:34→15:36)
--- NOTE | 2017-10-22 14:55 | HHI.IDPN ---
Subjective Subjective Remarks ID Xcover for Dr Grimaldo developped GIB sp EGD Antibiotics Vanco oral Vanco enema Dificid Flagyl also started on azacta, micafungin and given 1 dose of vanco iv Lines Line sites with no e.o infection Past Medical History Past Medical History Dementia COPD Hypertension Seizure disorder History of TIAs Hypertension Dyslipidemia Cardiovascular disease GERD Urinary incontinence Prostate cancer History of previous MRSA and ESBL E. coli in urine History of coagulase negative staph bacteremia Hypothyroidism Past Surgical History Percutaneous endoscopic gastrostomy placement in November 2014 status post removal Appendectomy Bilateral hip surgeries with hardware Left ear cancer surgery Bilateral cataracts Prostatectomy Right carotid endarterectomy Tonsillectomy Allergies: Coded Allergies: amoxicillin (Unverified Allergy, Severe, Shortness of Breath, 10/17/17) clavulanic acid (Unverified Allergy, Severe, Shortness of Breath, 10/17/17) imipramine (Unverified Allergy, Severe, SEIZURE, 10/17/17) primidone (Unverified Allergy, Severe, SEIZURE, 10/17/17) Sulfa (Sulfonamide Antibiotics) (Unverified Allergy, Unknown, Rash, ) Objective . Vital Signs Date Time Temp Pulse Resp B/P (MAP) Pulse Ox O2 Delivery O2 Flow Rate FiO2 10/22/17 14:00 99 10/22/17 13:00 98 18 158/70 (99) 99 Nasal Cannula 4 10/22/17 12:50 106 18 164/71 (102) 99 Nasal Cannula 4 10/22/17 12:40 97.2 101 18 154/67 (96) 99 Nasal Cannula 4 10/22/17 10:00 92 10/22/17 09:44 Nasal Cannula 5.00 10/22/17 08:00 97.9 122 30 191/82 (118) 92 10/22/17 08:00 122 10/22/17 06:00 121 10/22/17 04:00 140 10/22/17 04:00 98.4 140 33 167/83 (111) 92 10/22/17 02:00 103 10/22/17 00:00 89 10/22/17 00:00 98.6 89 25 198/81 (120) 100 10/21/17 22:00 88 10/21/17 20:00 93 10/21/17 20:00 99.2 93 21 160/68 (98) 100 10/21/17 18:00 98 10/21/17 16:00 97.8 90 26 149/64 (92) 87 10/21/17 16:00 90 10/22/17 10/22/17 10/23/17 15:00 23:00 07:00 Intake Total 400 ml Output Total 1600 ml Balance -1200 ml Intake Oral 0 ml IV Total 200 ml Other 200 ml Stool Total 1500 ml Gastric Drainage Total 100 ml Estimated Blood Loss 0 ml . Laboratory Tests Test 10/20/17 21:09 10/21/17 04:13 10/21/17 16:05 10/21/17 22:21 White Blood Count 29.5 TH/MM3 37.1 TH/MM3 Red Blood Count 2.78 MIL/MM3 3.04 MIL/MM3 Hemoglobin 8.5 GM/DL 9.6 GM/DL 10.1 GM/DL 9.5 GM/DL Hematocrit 25.6 % 28.6 % 30.4 % 28.0 % Mean Corpuscular Volume 92.1 FL 93.9 FL Mean Corpuscular Hemoglobin 30.6 PG 31.4 PG Mean Corpuscular Hemoglobin Concent 33.2 % 33.4 % Red Cell Distribution Width 14.1 % 14.3 % Platelet Count 241 TH/MM3 275 TH/MM3 Mean Platelet Volume 8.0 FL 8.2 FL Neutrophils (%) (Auto) 86.1 % Lymphocytes (%) (Auto) 2.5 % Monocytes (%) (Auto) 10.6 % Eosinophils (%) (Auto) 0.6 % Basophils (%) (Auto) 0.2 % Neutrophils # (Auto) 31.9 TH/MM3 Lymphocytes # (Auto) 0.9 TH/MM3 Monocytes # (Auto) 3.9 TH/MM3 Eosinophils # (Auto) 0.2 TH/MM3 Basophils # (Auto) 0.1 TH/MM3 CBC Comment AUTO DIFF Differential Total Cells Counted 100 Neutrophils % (Manual) 81 % Band Neutrophils % 8 % Lymphocytes % 3 % Monocytes % 8 % Neutrophils # (Manual) 33.0 TH/MM3 Differential Comment FINAL DIFF MANUAL Platelet Estimate NORMAL Platelet Morphology Comment NORMAL Palomo Cells 1+ Acanthocytes 1+ Keratocytes OCC Test 10/22/17 04:10 10/22/17 10:42 White Blood Count 27.8 TH/MM3 Red Blood Count 3.21 MIL/MM3 Hemoglobin 10.0 GM/DL 10.3 GM/DL Hematocrit 29.4 % 30.8 % Mean Corpuscular Volume 91.7 FL Mean Corpuscular Hemoglobin 31.3 PG Mean Corpuscular Hemoglobin Concent 34.1 % Red Cell Distribution Width 13.9 % Platelet Count 276 TH/MM3 Mean Platelet Volume 8.1 FL Neutrophils (%) (Auto) 85.3 % Lymphocytes (%) (Auto) 2.7 % Monocytes (%) (Auto) 11.6 % Eosinophils (%) (Auto) 0.3 % Basophils (%) (Auto) 0.1 % Neutrophils # (Auto) 23.8 TH/MM3 Lymphocytes # (Auto) 0.8 TH/MM3 Monocytes # (Auto) 3.2 TH/MM3 Eosinophils # (Auto) 0.1 TH/MM3 Basophils # (Auto) 0.0 TH/MM3 CBC Comment AUTO DIFF Differential Total Cells Counted 100 Neutrophils % (Manual) 83 % Band Neutrophils % 3 % Lymphocytes % 1 % Monocytes % 13 % Neutrophils # (Manual) 23.9 TH/MM3 Differential Comment FINAL DIFF MANUAL Platelet Estimate NORMAL Platelet Morphology Comment NORMAL Basophilic Stippling FAINT Ovalocytes 1+ Laboratory Tests Test 10/20/17 21:09 10/21/17 04:13 10/22/17 04:10 Blood Urea Nitrogen 49 MG/DL 49 MG/DL 35 MG/DL Creatinine 2.50 MG/DL 2.13 MG/DL 1.20 MG/DL Random Glucose 159 MG/DL 126 MG/DL 181 MG/DL Total Protein 4.7 GM/DL 5.2 GM/DL 5.4 GM/DL Albumin 1.6 GM/DL 1.7 GM/DL Calcium Level 6.6 MG/DL 6.7 MG/DL 6.9 MG/DL Magnesium Level 1.9 MG/DL 2.0 MG/DL 2.0 MG/DL Alkaline Phosphatase 50 U/L 61 U/L Aspartate Amino Transf (AST/SGOT) 20 U/L 26 U/L Alanine Aminotransferase (ALT/SGPT) 13 U/L 16 U/L Total Bilirubin 0.3 MG/DL 0.3 MG/DL Sodium Level 142 MEQ/L 142 MEQ/L 145 MEQ/L Potassium Level 3.1 MEQ/L 3.9 MEQ/L 2.9 MEQ/L Chloride Level 111 MEQ/L 111 MEQ/L 108 MEQ/L Carbon Dioxide Level 18.5 MEQ/L 19.5 MEQ/L 26.7 MEQ/L Anion Gap 13 MEQ/L 12 MEQ/L 10 MEQ/L Estimat Glomerular Filtration Rate 25 ML/MIN 30 ML/MIN 57 ML/MIN Protein Corrected Calcium 7.8 MG/DL 7.7 MG/DL 7.8 MG/DL Phosphorus Level 3.3 MG/DL 1.8 MG/DL Microbiology Date/Time Source Procedure Growth Status 10/20/17 21:09 Blood Peripheral Aerobic Blood Culture - Preliminary NO GROWTH IN 2 DAYS Resulted 10/20/17 21:09 Blood Peripheral Anaerobic Blood Culture - Preliminary NO GROWTH IN 2 DAYS Resulted Imaging Last Impressions Abdomen X-Ray 10/21/17 0000 Signed Impressions: Service Date/Time: Saturday, October 21, 2017 15:43 - CONCLUSION: Stable examination with mild diffuse gaseous distention of the small bowel consistent with adynamic ileus. Kwesi Humphreys MD Abdomen/Pelvis CT 10/19/172041 Signed Impressions: Service Date/Time: October 22:34 - CONCLUSION: 1. Pancolitis without obstruction, perforation, or abscess. 2. Small volume ascites. Manish Jenkins Jr., MD Chest X-Ray 10/19/17 1803 Signed Impressions: Service Date/Time: October 18:17 - CONCLUSION: No acute disease. Yung Green MD Renal Ultrasound 10/19/17 0000 Signed Impressions: Service Date/Time: October 15:24 - CONCLUSION: 1. Increased echogenicity of the renal parenchyma bilaterally. This can be seen with chronic medical renal disease. 2. No hydronephrosis. Keo Trevizo MD Head CT 10/17/17 1042 Signed Impressions: Service Date/Time: Tuesday, October 17, 2017 11:07 - CONCLUSION: 1. No acute intracranial abnormality or significant interval change. Kwesi Humphreys MD Physical Exam GENERAL: This is a well-nourished, male patient, NAD. Awake. Able to follow simple commands. Confused. SKIN: No rashes, ecchymoses or lesions. Cool and dry. EYES: Pupils equal round and reactive. Extraocular motions intact. No scleral icterus. No injection or drainage. ENT: Nose without bleeding or purulent drainage. Throat without erythema, tonsillar hypertrophy or exudate. Uvula midline. Airway patent. Dry mucous membranes NECK: Trachea midline. No JVD or lymphadenopathy. Supple, nontender, no meningeal signs. CARDIOVASCULAR: Regular rate and rhythm without murmurs, gallops, or rubs. RESPIRATORY: not wheezing today . Diminished BS in all lung ashby. GASTROINTESTINAL: Abdomen soft markedly distended, tender to palpation. Incontinent of liquid dark brown stool remasins tympanic to percussion No guarding or rebound tenderness. GENITOURINARY: Han catheter in place with brown urine in the bag. MUSCULOSKELETAL: Extremities without clubbing, cyanosis, or edema. No joint tenderness, effusion, or edema noted. No calf tenderness. NEUROLOGICAL: Awake and alert. Disoriented. Non focal. PSYCHIATRIC: confused and somewhat agitated PIV with no e/o infection. Assessment & Plan Remarks Severe sepsis with leukocytosis with elevated white count of 43.9, acidosis with bicarbonate 14.5, acute renal failure with creatinine of 2.34, hypotension and tachycardia and C. difficile positive diarrhea/colitis -CT of abdomen and pelvis revealed pancolitis Leukemoid reaction due to severe Cdiff. Non-anion gap metabolic acidosis suspect secondary to bicarb loss from ongoing diarrhea -on bicarb gtt Acute renal failure suspect secondary to hypotension and IV contrast -mucjh improved Acute metabolic encephalopathy secondary to active infection and dehydration MRSA urine, Leukocytosis - mproved ? UTI ? aspiration PNA - pt apparently shows s/o aspiration 2/2 dysphagia RECS: Continue on oral vancomycin and lactobacillus Continue Vanco enema Continue IV Flagyl continue Dificid cont azactam, IV vanco cont micafungin, azactam fu P blood clx rechk UA, urine clx CXR Stefany Zuluaga MD October 22, 2017 14:55
--- NOTE | 2017-10-22 15:54 | RADRPT ---
EXAM DATE/TIME: 10/22/2017 15:12 [place] COMPARISON: CHEST SINGLE AP, October 19, 2017, 18:17. INDICATIONS : Short of breath. MEDICAL HISTORY : Hypertension. Hypercholesterolemia. Chronic obstructive pulmonary disease. SURGICAL HISTORY : Tonsillectomy. Appendectomy. Prostatectomy. Peg tub/removed. TURP. ENCOUNTER: Subsequent ACUITY: 4 - 6 days PAIN SCORE: 0/10 LOCATION: Bilateral chest FINDINGS: There is an NGT coursing beyond the GE junction with tip omitted from the image. Patchy airspace dise ase in the left lower lobe. Linear opacity in the right midlung. Cardiomediastinal contours are stabl e. Remainder of the exam is unchanged. CONCLUSION: 1. NGT beyond the GE junction. 2. Patchy left lower lobe airspace disease. 3. Right midlung zone atelectasis lie scarring. Kwesi Humphreys MD on October 22, 2017 at 15:50 Board Certified Radiologist. This report was verified electronically.
[2017-10-22] MEDS: VANCOMYCIN INJ 1,250 MG in SODIUM CHLOR 0.9% 250 ML INJ 250 ML IV SCH (16:40)
[2017-10-22 17:17] LABS: HEMATOCRIT 30.8 % (39.0-51.0); HEMOGLOBIN 10.3 GM/DL (13.0-17.0)
[2017-10-22] MEDS ORDERED: POTASSIUM PHOSPHATE MONOBASIC 500 MG TAB PO PRN (17:45)
[2017-10-22] MEDS ORDERED: POTASSIUM CHLORIDE 25 MEQ EFFERVESCENT TAB PO PRN (17:45)
[2017-10-22] MEDS ORDERED: POTASSIUM PHOSPHATE MONOBASIC 500 MG TAB PO/TUBE PRN (17:45)
[2017-10-22] MEDS ORDERED: MAGNESIUM SULFATE INJ 4 GM in SODIUM CHLORIDE 0.9% INJ 92 ML IV PRN (17:45)
[2017-10-22] MEDS ORDERED: POTASSIUM CHLOR 40 MEQ PREMIX 100 ML IV PRN ×2 (17:45)
[2017-10-22] MEDS ORDERED: POTASSIUM CHLOR 20 MEQ PREMIX 100 ML IV PRN ×2 (17:45)
[2017-10-22] MEDS ORDERED: MAGNESIUM SULFATE INJ 2 GM in SODIUM CHLORIDE 0.9% INJ 96 ML IV PRN (17:45)
[2017-10-22] MEDS ORDERED: MAGNESIUM OXIDE 400 MG TAB PO PRN (17:45)
[2017-10-22] MEDS ORDERED: POTASSIUM PHOSPHATE INJ 30 MMOL in SODIUM CHLOR 0.9% 250 ML INJ 250 ML IV PRN (17:45)
[2017-10-22] MEDS ORDERED: SODIUM PHOSPHATE INJ 30 MMOL in SODIUM CHLOR 0.9% 250 ML INJ 240 ML IV PRN (17:45)
[2017-10-22] MEDS ORDERED: LACTATED RINGER'S 1000 ML INJ 1,000 ML IV SCH (18:00)
--- NOTE | 2017-10-22 18:00 | HHI.CCPN ---
Subjective Remarks/Hospital Course This is an 87-year-old male. Date of admission 10/17/2017. Date of consultation 10/19/2017. Patient with many comorbidities including dementia disorder, TIAs, seizures, prostate cancer, COPD, gastroesophageal reflux disease , hypertension, dyslipidemia, esophageal strictures, left bundle branch block, ventricular arterial disease and atherosclerotic heart disease. History of pill esophagitis/esophageal strictures with history of PEG tube placement. Patient was admitted to the hospital service on 10/17 with diarrhea/abdominal pain. CT abdomen/pelvis revealed pancolitis. Patient originally treated with metronidazole Patient with worsening status with increasing creatinine, WBCs. Infectious disease nephrology consult. Abdomen more distended today and hypotensive with systolic blood pressures in the 80s on the floor. Received 2 L normal saline. Due to clinical status, infectious disease recommended ICU transfer. On evaluation of patient with abdomen firm but not surgical with no rigidity. CT abdomen/pelvis currently pending. Lactate and all laboratories pending at time of dictation. Subjective: 10/20: T-max 99.3 persistent leukocytosis. Patient continues on sodium bicarbonate infusion. Palliative medicine has been consulted for defining goals of care. 10/21: Patient failed swallow exam 2. Overnight, unable to pass NG tube plan for gastroenterology to assist. WBC count continues to be elevated. Patient noted to have large amount of coffee-ground emesis this afternoon. KUB pending. Serial hemoglobin and hematocrits obtained. Healthcare proxy at bedside tentative plan for possible hospice initiation.. Nephrology following , sodium bicarbonate concentration increased. 10/22: off vasopressors. clinically improving. HR controlled. GAIL improving. plan for EGD today. long discussion with nephew and medical decisionmaker: he wishes patient to be aggressive measures but DNR, which I think is appropriate given his severe dementia and multiple acute on chronic medical problems. Objective Vital Signs Date Time Temp Pulse Resp B/P (MAP) Pulse Ox O2 Delivery O2 Flow Rate FiO2 10/22/17 16:00 98.7 93 21 159/71 (100) 96 10/22/17 13:00 Nasal Cannula 4 Intake and Output 10/22/17 10/22/17 10/23/17 08:00 16:00 00:00 Intake Total 400 ml Output Total 600 ml 1600 ml Balance -600 ml -1200 ml Result Diagram: 10/22/17 1556 10/22/17 0410 Imaging Last Impressions Abdomen/Pelvis CT 10/19/172 Signed Impressions: Service Date/Time: October 22:34 - CONCLUSION: 1. Pancolitis without obstruction, perforation, or abscess. 2. Small volume ascites. Manish Jenkins Jr., MD Chest X-Ray 10/19/171802 Signed Impressions: Service Date/Time: October 18:17 - CONCLUSION: No acute disease. Yung Green MD Abdomen X-Ray 10/19/171802 Signed Impressions: Service Date/Time: October 18:24 - CONCLUSION: Nonspecific KUB with air seen throughout the bowel. This is likely secondary to ileus. This pattern is nonspecific. Yung Green MD Renal Ultrasound 10/19/17 0000 Signed Impressions: Service Date/Time: October 15:24 - CONCLUSION: 1. Increased echogenicity of the renal parenchyma bilaterally. This can be seen with chronic medical renal disease. 2. No hydronephrosis. Keo Trevizo MD Head CT 10/17/17 1042 Signed Impressions: Service Date/Time: Tuesday, October 17, 2017 11:07 - CONCLUSION: 1. No acute intracranial abnormality or significant interval change. Kwesi Humphreys MD Last Impressions Renal Ultrasound 10/19/17 0000 Signed Impressions: Service Date/Time: October 15:24 - CONCLUSION: 1. Increased echogenicity of the renal parenchyma bilaterally. This can be seen with chronic medical renal disease. 2. No hydronephrosis. Keo Trevizo MD Head CT 10/17/17 1042 Signed Impressions: Service Date/Time: Tuesday, October 17, 2017 11:07 - CONCLUSION: 1. No acute intracranial abnormality or significant interval change. Kwesi Humphreys MD Chest X-Ray 10/17/17 1042 Signed Impressions: Service Date/Time: Tuesday, October 17, 2017 11:13 - CONCLUSION: No acute disease. Shane Pro MD Abdomen/Pelvis CT 10/17/17 0000 Signed Impressions: Service Date/Time: Tuesday, October 17, 2017 19:53 - CONCLUSION: 1. Gould colitis but most pronounced involving the ascending colon. Manish Jenkins Jr., MD Objective Remarks GENERAL: 87-year-old male currently resting in bed in no acute distress SKIN: Warm and dry. HEAD: Atraumatic. Normocephalic. EYES: Pupils equal and round. No scleral icterus. No injection or drainage. ENT: No nasal bleeding or discharge. Mucous membranes pink and dry. Oropharynx without erythema or thrush NECK: Trachea midline. No JVD. CARDIOVASCULAR: tachycardic rate, irregularly irregular rhythm, rate of 106. afib by tele. RESPIRATORY: nc o2. equal chest rise. unlabored. GASTROINTESTINAL: Abdomen s distended. minimally tender to palpation. mildly distended. rectal bag in place with brown stool. MUSCULOSKELETAL: Extremities with trace lower extremity edema NEUROLOGICAL: Awake and alert. No obvious cranial nerve deficits. Motor grossly within normal limits. Five out of 5 muscle strength in the arms and legs. Normal speech. A/P Assessment and Plan Assessment: 87yM with severe dementia and multiple acute on chronic medical problems, now with c. difficile colitis, severe sepsis, acute kidney injury. some organs have improved, but overall, very deconditioned and will need long rehabilitation. agree with DNR status with aggressive goals- if patient were to decline, unlikely to survive this hospitalization. 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 There is compensatory enlargement of the posterior horns of the lateral ventricles stable from prior exam Acetaminophen 1 g IV every 8 hours as needed fever Currently on levetiracetam 500 mg p.o. 3 times daily, and carbamazepine 200 mg p.o. twice daily Holding gabapentin 300 mg 3 times daily with altered mental status Holding sertraline 25 mg p.o. daily for depression. Resume when clinically indicated CV: Essential hypertension Hyperlipidemia Right bundle branch block Peripheral arterial disease Atherosclerotic vascular disease Echocardiogram 2017 revealed ejection fraction of 55-60%. No regional wall motion abnormality. Mild TR. Holding lisinopril 5 mg p.o. daily/home medication and propranolol 10 mg p.o. twice daily/home medication while hypertensive Currently on atorvastatin 20 mg p.o. daily for dyslipidemia Currently on sterile water with bicarbonate at 100 cc an hour. Received 2 L normal saline floor. Troponin on admission was 0.06 Currently on clopidogrel 75 mg p.o. daily Resp: COPD Nasal cannula to maintain saturations greater than or equal to 92% Incentive spirometry while awake Follow-up on chest x-ray On fluticasone/Vilanterol 1 inhalation daily Placed on albuterol/ipratropium aerosols every 6 hours with albuterol aerosols every 2 hours as needed dyspnea Currently on montelukast 10 mg p.o. daily GI: Gastroesophageal reflux disease History of esophageal stricture History of pill dysphagia History of PEG tube placement status post removal Nausea and vomiting CT abdomen/pelvis on admission revealed pancolitis including the ascending colon. Currently n.p.o. status Multiple attempts at with NG tube placement Pantoprazole for GI prophylaxis GI consult for placement of NG tube plan for EGD today. : History of prostate cancer status post TURP Han catheter if indicated Endo: Hypothyroidism Continue levothyroxine 50 mcg p.o. daily. TSH 2.28 on admission Sliding scale insulin if indicated to maintain euglycemia Renal: Acute kidney injury- resolving Renal ultrasound revealed increased echogenicity of the kidneys indicative of chronic medical disease. No hydronephrosis. Creatinine slightly downtrending. Currently being followed by nephrology Heme: Normocytic anemia Monitor CBC, coags Transfuse for hemoglobin less than 7 Obtain Serial Hgb and Hct ID: C. difficile colitis Currently on fiaxomicin 200 mg p.o. twice daily 10 days, vancomycin 500 mg p.o. 4 times daily and metronidazole 500 mg IV every 6 hours Lactobacillus per ID Vancomycin in about 250 mg in 200 cc tap water every 6 hours ordered. ID request FEN: Replace electrolytes as clinically indicated MSK: PT evaluate and treat Access Utilized peripheral IV. Prophylaxis GI-pantoprazole -DVT -SCD/heparin subcu dispo: safe to transfer out of ICU. consult hospitalist service. Darrick Blancas MD October 22, 2017 18:00
[2017-10-22] MEDS: METOPROLOL TARTRATE 25 MG TAB PO SCH ×2 (18:49→23:52)
[2017-10-22] MEDS: MONTELUKAST SODIUM 10 MG TAB PO SCH (20:57)
[2017-10-22] MEDS: ATORVASTATIN 20 MG TAB PO SCH (20:57)
[2017-10-22] MEDS: MICAFUNGIN INJ 100 MG in SODIUM CHLORIDE 0.9% INJ 100 ML IV SCH (21:05)
[2017-10-22 21:49] LABS: HEMATOCRIT 25.9 % (39.0-51.0); HEMOGLOBIN 9.1 GM/DL (13.0-17.0)
[2017-10-23] VITALS (14 sets, daily range): BP systolic 141–168; BP diastolic 63–105; PULSE 91–104; RESP 23–31; TEMP 98.4–99.6; O2SAT 93–98
[2017-10-23] MEDS: CHLORHEXIDINE GLUCONATE 2 % 1 PACK (2 CLOTHS)(taper/protocol) TOPICAL SCH (03:37)
[2017-10-23] MEDS: RESP: ALBUTEROL 2.5 MG/IPRATROPIUM 0.5 MG NEB (SCH) NEB ×4 (04:07→20:44)
[2017-10-23 04:58] LABS: AUTOMATED NEUTROPHIL # 31.4 TH/MM3 (1.8-7.7); BASOPHIL # 0.1 TH/MM3 (0-0.2); BASOPHIL % 0.2 % (0.0-2.0); EOSINOPHIL # 0.1 TH/MM3 (0-0.4); EOSINOPHIL % 0.3 % (0.0-4.0); HEMATOCRIT 28.6 % (39.0-51.0); HEMOGLOBIN 9.3 GM/DL (13.0-17.0); LYMPH % 2.7 % (9.0-44.0); MEAN CELL VOLUME 92.6 FL (80.0-100.0); MEAN CORPUSCULAR HEMOGLOBIN 30.3 PG (27.0-34.0); MEAN CORPUSCULAR HGB CONC 32.7 % (32.0-36.0); MONO % 11.6 % (0.0-8.0); MONOCYTE # 4.3 TH/MM3 (0-0.9); NEUT % 85.2 % (16.0-70.0); PLATELET COUNT 290 TH/MM3 (150-450); RED BLOOD COUNT 3.08 MIL/MM3 (4.50-5.90); RED CELL DISTRIBUTION WIDTH 14.3 % (11.6-17.2); WHITE BLOOD COUNT 36.8 TH/MM3 (4.0-11.0)
[2017-10-23 05:31] LABS: ALBUMIN 1.7 GM/DL (3.4-5.0); BICARBONATE 27.4 MEQ/L (21.0-32.0); CALCIUM 6.8 MG/DL (8.5-10.1); CALCIUM-PROTEIN CORRECTED 7.8 MG/DL (8.5-10.1); CREATININE 0.99 MG/DL (0.60-1.30); MAGNESIUM 1.9 MG/DL (1.5-2.5); PHOSPHORUS 2.5 MG/DL (2.5-4.9); TOTAL BILIRUBIN ADULT 0.3 MG/DL (0.2-1.0); TOTAL PROTEIN 5.1 GM/DL (6.4-8.2)
[2017-10-23 05:38] LABS: BANDS 19 % (0-6); LYMPHOCYTES 6 % (9-44); MONOCYTES 6 % (0-8); MYELOCYTES 2 % (0-0); NEUTROPHIL # MANUAL DIFF 32.4 TH/MM3 (1.8-7.7); POLYS (SEG NEUTROPHILS) 67 % (16-70)
[2017-10-23] MEDS: metroNIDAZOLE 500 MG INJ 100 ML IV SCH ×2 (06:00→11:12)
[2017-10-23] MEDS: VANCOMYCIN INJ 500 MG in SODIUM CHLORIDE 0.9% IRR BTL 250 ML IRRIGATION SCH ×3 (06:00→17:21)
[2017-10-23] MEDS: LEVOTHYROXINE SODIUM 50 MCG TAB PO SCH (06:00)
[2017-10-23] MEDS: METOPROLOL TARTRATE 25 MG TAB PO SCH ×3 (06:00→17:21)
[2017-10-23] MEDS: AZTREONAM INJ 1,000 MG in SODIUM CHLORIDE 0.9% INJ 100 ML IV SCH ×3 (07:58→22:09)
[2017-10-23] MEDS: levETIRAcetam INJ 100 ML IV SCH ×2 (08:01→22:10)
[2017-10-23] MEDS: HEPARIN SODIUM - SQ 10,000 UNITS/ML VIAL SQ SCH ×2 (08:03→22:08)
[2017-10-23] MEDS: FIDAXOMICIN 200 MG TAB PO SCH ×2 (08:04→22:09)
[2017-10-23] MEDS: FERROUS SULFATE 325 MG (65 MG ELEMENTAL IRON) TAB PO SCH ×3 (08:04→17:39)
[2017-10-23] MEDS: carBAMazepine 200 MG TAB PO SCH ×2 (08:04→22:09)
[2017-10-23] MEDS: LACTOBACILLUS ACIDOPHILUS TAB PO SCH ×3 (08:04→17:21)
[2017-10-23] MEDS: PANTOPRAZOLE SOD 40 MG DELAYED RELEASE TAB PO SCH (08:04)
[2017-10-23] MEDS: VANCOMYCIN 500 MG VIAL (FOR ORAL USE ONLY) PO SCH ×4 (08:04→22:08)
[2017-10-23] MEDS: CLOPIDOGREL 75 MG TAB PO SCH (08:05)
[2017-10-23] MEDS: FLUTICASONE 100 MCG/VILANTEROL 25 MCG INHALER INH SCH (08:05)
[2017-10-23] MEDS: FLUTICASONE PROPIONATE 50 MCG/ACT 16 GM NASAL SPRAY EACH NARE SCH (08:05)
[2017-10-23] MEDS: SODIUM CHLORIDE 0.9% FLUSH 10 ML FLUSH IV FLUSH SCH ×2 (08:16→22:10)
[2017-10-23] MEDS: METOPROLOL TARTRATE 5 MG/5 ML VIAL IV PUSH PRN (09:38)
--- NOTE | 2017-10-23 10:45 | HHI.NPPN ---
Subjective Renal Failure: Acute Interval History Much more alert today. Renal function improved. Mild hypernatremia noted. Had EGD with NG tube placement yesterday. (Isidra Mcdonough) Review of Systems Gastrointestinal Gastrointestinal: Abdominal Pain, Diarrhea (Isidra Mcdonough) Objective Data Data Vital Signs Date Time Temp Pulse Resp B/P (MAP) Pulse Ox O2 Delivery O2 Flow Rate FiO2 10/23/17 10:00 103 10/23/17 10:00 93 10/23/17 08:43 96 Nasal Cannula 3.00 10/23/17 08:00 103 10/23/17 08:00 99.4 103 25 144/63 (90) 96 10/23/17 06:00 104 10/23/17 04:00 98 10/23/17 04:00 98.6 98 25 168/74 (105) 94 10/23/17 02:00 91 10/23/17 00:00 98 10/23/17 00:00 98.4 98 26 151/67 (95) 93 10/22/17 22:00 106 10/22/17 20:16 96 Nasal Cannula 3.00 10/22/17 20:00 93 10/22/17 20:00 98.8 93 23 187/74 (111) 95 10/22/17 18:00 107 10/22/17 16:00 98.7 93 21 159/71 (100) 96 10/22/17 16:00 93 10/22/17 14:00 99 10/22/17 13:00 98 18 158/70 (99) 99 Nasal Cannula 4 10/22/17 12:50 106 18 164/71 (102) 99 Nasal Cannula 4 10/22/17 12:40 97.2 101 18 154/67 (96) 99 Nasal Cannula 4 (Isidra Mcdonough) -: 10/23/17 0415 10/23/17 0430 Imaging Last Impressions Chest X-Ray 10/22/17 0000 Signed Impressions: Service Date/Time: Sunday, October 22, 2017 15:12 - CONCLUSION: 1. NGT beyond the GE junction. 2. Patchy left lower lobe airspace disease. 3. Right midlung zone atelectasis lie scarring. Kwesi Humphreys MD Abdomen X-Ray 10/21/17 0000 Signed Impressions: Service Date/Time: Saturday, October 21, 2017 15:43 - CONCLUSION: Stable examination with mild diffuse gaseous distention of the small bowel consistent with adynamic ileus. Kwesi Humphreys MD Abdomen/Pelvis CT 10/19/172041 Signed Impressions: Service Date/Time: October 22:34 - CONCLUSION: 1. Pancolitis without obstruction, perforation, or abscess. 2. Small volume ascites. Manish Jenkins Jr., MD Renal Ultrasound 10/19/17 0000 Signed Impressions: Service Date/Time: October 15:24 - CONCLUSION: 1. Increased echogenicity of the renal parenchyma bilaterally. This can be seen with chronic medical renal disease. 2. No hydronephrosis. Keo Trevizo MD Head CT 10/17/17 1042 Signed Impressions: Service Date/Time: Tuesday, October 17, 2017 11:07 - CONCLUSION: 1. No acute intracranial abnormality or significant interval change. Kwesi Humphreys MD Tubes & Lines: Rivera Tubes & Lines Comment rectal bag (Isidra Mcdonough) Physical Exam General Appearance: No Acute Distress, Comfortable, Malnourished Appearance Remarks elderly, not in distress (Isidra Mcdonough) Eyes Eye Exam: Pupils Equal, Pupils Reactive (Isidra Mcdonough BDenny HANDYMAN) Neck Neck Exam: Trachea Midline (Isidra Mcdonough BDenny SPRINGERP) Pulmonary Resp Exam: Breath Sounds Equal, Decreased Bases, Diminished Breath Sounds (Isidra Mcdonough BDenny SPRINGERP) Cardiology CV Exam: Good Perfusion, Irregular (Isidra Mcdonough BDenny SPRINGERP) Gastrointestinal/Abdomen GI Exam: Bowel Sounds Present, Distended GI Remarks soft, tender (Isidra Mcdonough BDenny SPRINGERP) Musculoskeletal MS Exam: Joints Intact, Normal Tone, Good Strength, Unable to Ambulate (Isidra McdonoughP) Integumentary Skin Exam: Warm, Dry, Intact (Isidra Mcdonough BDenny SPRINGERP) Extremeties Extremities Exam: No Edema, Pedal Pulses Palpable (Isidra Mcdonough BDenny HANDYMAN) Neurologic Neuro Exam: Alert, Awake, Speech Clear, Moving All Extremities, Obtunded (Isidra Mcdonough) Psychiatric Psych Exam: Appropriate Responses (Isidra Mcdonough) Assessment/Plan Discussed Condition With: Patient Assessment Summary: GAIL/Acute Renal Failure, Acute Tubular Necrosis Electrolyte Assessment: Hypernatremia Problem List: (1) Acute renal failure (ARF) ICD Codes: N17.9 - Acute kidney failure, unspecified Plan: Normal renal function at baseline GAIL most likely ATN secondary to prerenal azotemia . He was also given IV contrast on admission Renal US is normal Renal function has improved Non oliguric with rivera Stop LR, off bicarb gtt, acidosis improved Start free water via NG tube Avoid nephrotoxic agents. (2) Leukocytosis ICD Codes: D72.829 - Elevated white blood cell count, unspecified Status: Resolved Plan: With associated Sepsis, ID following Antibiotics include IV Flagyl, Azactam, IV vancomycin Also on vanco enema, Dificid, PO Vanco Has MRSA in urine (3) C. difficile diarrhea ICD Codes: A04.72 - Enterocolitis due to Clostridium difficile, not specified as recurrent Status: Acute Plan: see above on Contact precautions CT shows pancolitis (4) Dementia ICD Codes: F03.90 - Dementia Status: Chronic Plan: With encephalopathy due to infection and renal failure continue supportive care, fall precautions (5) COPD (chronic obstructive pulmonary disease) ICD Codes: J44.9 - Chronic obstructive pulmonary disease, unspecified Status: Chronic Plan: Continue to monitor. (6) Seizure disorder ICD Codes: G40.909 - Epilepsy, unspecified, not intractable, without status epilepticus Status: Chronic Plan: On Tegretol and Keppra Seizure precautions Plan We will sign off at this time. (Isidra Mcdonough) Plan patient was seen and examined. Renal function has improved. Needs nutritional support. Consider TPN. Agree with above assessment and plan. (Mookie Garsia MD) Isidra Mcdonough October 23, 2017 10:45 Mookie Garsia MD October 23, 2017 11:22
[2017-10-23] MEDS: FREE WATER G-TUBE SCH ×2 (11:12→17:21)
[2017-10-23] MEDS: VANCOMYCIN INJ 1,250 MG in SODIUM CHLOR 0.9% 250 ML INJ 250 ML IV SCH (11:20)
--- NOTE | 2017-10-23 11:35 | HHI.PR ---
Subjective Remarks Critical Care Notes: This is an 87-year-old male. Date of admission 10/17/2017. Date of consultation 10/19/2017. Patient with many comorbidities including dementia disorder, TIAs, seizures, prostate cancer, COPD, gastroesophageal reflux disease , hypertension, dyslipidemia, esophageal strictures, left bundle branch block, ventricular arterial disease and atherosclerotic heart disease. History of pill esophagitis/esophageal strictures with history of PEG tube placement. Patient was admitted to the hospital service on 10/17 with diarrhea/abdominal pain. CT abdomen/pelvis revealed pancolitis. Patient originally treated with metronidazole Patient with worsening status with increasing creatinine, WBCs. Infectious disease nephrology consult. Abdomen more distended today and hypotensive with systolic blood pressures in the 80s on the floor. Received 2 L normal saline. Due to clinical status, infectious disease recommended ICU transfer. On evaluation of patient with abdomen firm but not surgical with no rigidity. CT abdomen/pelvis currently pending. Lactate and all laboratories pending at time of dictation. 10/20: T-max 99.3 persistent leukocytosis. Patient continues on sodium bicarbonate infusion. Palliative medicine has been consulted for defining goals of care. 10/21: Patient failed swallow exam 2. Overnight, unable to pass NG tube plan for gastroenterology to assist. WBC count continues to be elevated. Patient noted to have large amount of coffee-ground emesis this afternoon. KUB pending. Serial hemoglobin and hematocrits obtained. Healthcare proxy at bedside tentative plan for possible hospice initiation.. Nephrology following , sodium bicarbonate concentration increased. 10/22: Off vasopressors. clinically improving. HR controlled. AGIL improving. plan for EGD today. long discussion with nephew and medical decision maker: he wishes patient to be aggressive measures but DNR, which I think is appropriate given his severe dementia and multiple acute on chronic medical problems. Hospitalist notes: 10/23: GIB status post EGD, Followed by ID specialist with Diagnosis of Severe Sepsis with Leukocytosis, Acidosis, renal failure now improved, Hypotension and tachycardia C Diff colitis, Encephalopathy, MRSA urine, Aspiration Pneumonia, recommended to continue Vancomycin, Lactobacillus, Vancomycin enema, IV Flagyl, Dificid, continue Micafungin, Azactam following flood cultures, UA and Urine cultures, CXR. stable in his bedroom, discussed with nurse Trina, no nausea, vomit or diarrhea. Objective Vital Signs Date Time Temp Pulse Resp B/P (MAP) Pulse Ox O2 Delivery O2 Flow Rate FiO2 10/23/17 10:00 103 10/23/17 10:00 93 10/23/17 08:43 96 Nasal Cannula 3.00 10/23/17 08:00 103 10/23/17 08:00 99.4 103 25 144/63 (90) 96 10/23/17 06:00 104 10/23/17 04:00 98 10/23/17 04:00 98.6 98 25 168/74 (105) 94 10/23/17 02:00 91 10/23/17 00:00 98 10/23/17 00:00 98.4 98 26 151/67 (95) 93 10/22/17 22:00 106 10/22/17 20:16 96 Nasal Cannula 3.00 10/22/17 20:00 93 10/22/17 20:00 98.8 93 23 187/74 (111) 95 10/22/17 18:00 107 10/22/17 16:00 98.7 93 21 159/71 (100) 96 10/22/17 16:00 93 10/22/17 14:00 99 10/22/17 13:00 98 18 158/70 (99) 99 Nasal Cannula 4 10/22/17 12:50 106 18 164/71 (102) 99 Nasal Cannula 4 10/22/17 12:40 97.2 101 18 154/67 (96) 99 Nasal Cannula 4 I/O 10/22/17 10/22/17 10/22/17 10/23/17 10/23/17 10/23/17 07:00 15:00 23:00 07:00 15:00 23:00 Intake Total 600 ml 700 ml Output Total 600 ml 1600 ml 1550 ml 1000 ml Balance -600 ml -1000 ml -850 ml -1000 ml Intake Oral 0 ml IV Total 400 ml 700 ml Other 200 ml Output Urine Total 400 ml 400 ml 300 ml Stool Total 200 ml 1500 ml 400 ml 500 ml Gastric Drainage Total 100 ml 750 ml 200 ml Estimated Blood Loss 0 ml Result Diagram: 10/23/17 0415 10/23/17 0430 Imaging Last Impressions Chest X-Ray 10/22/17 0000 Signed Impressions: Service Date/Time: Sunday, October 22, 2017 15:12 - CONCLUSION: 1. NGT beyond the GE junction. 2. Patchy left lower lobe airspace disease. 3. Right midlung zone atelectasis lie scarring. Kwesi Humphreys MD Abdomen X-Ray 10/21/17 0000 Signed Impressions: Service Date/Time: Saturday, October 21, 2017 15:43 - CONCLUSION: Stable examination with mild diffuse gaseous distention of the small bowel consistent with adynamic ileus. Kwesi Humphreys MD Abdomen/Pelvis CT 10/19/17 2042 Signed Impressions: Service Date/Time: October 22:34 - CONCLUSION: 1. Pancolitis without obstruction, perforation, or abscess. 2. Small volume ascites. Manish Jenkins Jr., MD Renal Ultrasound 10/19/17 0000 Signed Impressions: Service Date/Time: October 15:24 - CONCLUSION: 1. Increased echogenicity of the renal parenchyma bilaterally. This can be seen with chronic medical renal disease. 2. No hydronephrosis. Keo Trevizo MD Head CT 10/17/17 1042 Signed Impressions: Service Date/Time: Tuesday, October 17, 2017 11:07 - CONCLUSION: 1. No acute intracranial abnormality or significant interval change. Kwesi Humphreys MD Procedures EGD due to inability to perform NG tube, abdominal distention, Ileus and GI bleed, NG tube placed recommended PPIs, NPO except medication. NGT to suction. 10/22/17 Other Results Laboratory Tests Test 10/17/17 10:44 10/17/17 10:50 10/17/17 13:00 10/17/17 20:11 Total Creatine Kinase 32 U/L Troponin I LESS THAN 0.02 NG/ML B-Type Natriuretic Peptide 214 PG/ML Thyroid Stimulating Hormone 3rd Gen 2.280 uIU/ML Carbamazepine (Tegretol) Level 10.6 MCG/ML Stool C. difficile Toxin (PCR) POSITIVE Stl C. difficile Toxin Epiderm 027 PRESUMPTIVE NEGATIVE Urine Color YELLOW Urine Turbidity HAZY Urine pH 5.0 Urine Specific [place] 1.019 Urine Protein 30 mg/dL Urine Glucose (UA) NEG mg/dL Urine Ketones NEG mg/dL Urine Occult Blood TRACE Urine Nitrite NEG Urine Bilirubin NEG Urine Urobilinogen LESS THAN 2.0 MG/DL Urine Leukocyte Esterase TRACE Urine RBC 6 /hpf Urine WBC 4 /hpf Urine Bacteria RARE /hpf Microscopic Urinalysis Comment CATH-CULTURE IND Levetiracetam (Keppra) Level 33.7 mcg/mL Test 10/19/17 07:43 10/19/17 20:05 10/19/17 22:00 10/19/17 22:45 25-Hydroxy Vitamin D Total 28.1 ng/ML Prothrombin Time 11.7 SEC Prothromb Time International Ratio 1.2 RATIO Activated Partial Thromboplast Time 31.2 SEC Fibrinogen 417 mg/dL Direct Bilirubin 0.1 MG/DL Indirect Bilirubin 0.2 MG/DL Ammonia 31 MCMOL/L Lactate Dehydrogenase 226 U/L Triglycerides Level 70 MG/DL Cholesterol Level 55 MG/DL LDL Cholesterol 16 MG/DL HDL Cholesterol 24.8 MG/DL Cholesterol/HDL Ratio 2.21 RATIO Amylase Level 67 U/L Lipase 47 U/L Random Cortisol 28.0 MCG/DL Nasal Screen MRSA (PCR) MRSA DETECTED Blood Gas Puncture Site RT BRACHIAL Blood Gas Patient Temperature 98.6 Blood Gas HCO3 15 mmol/L Blood Gas Base Excess -10.4 mmol/L Blood Gas Oxygen Saturation 95 % Arterial Blood pH 7.30 Arterial Blood Partial Pressure CO2 31 mmHg Arterial Blood Partial Pressure O2 112 mmHg Arterial Blood Oxygen Content 13.4 Vol % Arterial Blood Carboxyhemoglobin 0.5 % Arterial Blood Methemoglobin 1.9 % Blood Gas Hemoglobin 10.0 G/DL Oxygen Delivery Device NASAL CANNULA Blood Gas Liter Flow 3 L/M Test 10/20/17 05:43 10/21/17 04:13 10/22/17 04:10 10/23/17 04:15 Toxic Granulation 1+ Lactic Acid Level 2.0 mmol/L Palomo Cells 1+ Acanthocytes 1+ Keratocytes OCC Basophilic Stippling FAINT Ovalocytes 1+ Random Vancomycin Level 13.1 COMMENT White Blood Count 36.8 TH/MM3 Red Blood Count 3.08 MIL/MM3 Hemoglobin 9.3 GM/DL Hematocrit 28.6 % Mean Corpuscular Volume 92.6 FL Mean Corpuscular Hemoglobin 30.3 PG Mean Corpuscular Hemoglobin Concent 32.7 % Red Cell Distribution Width 14.3 % Platelet Count 290 TH/MM3 Mean Platelet Volume 8.0 FL Neutrophils (%) (Auto) 85.2 % Lymphocytes (%) (Auto) 2.7 % Monocytes (%) (Auto) 11.6 % Eosinophils (%) (Auto) 0.3 % Basophils (%) (Auto) 0.2 % Neutrophils # (Auto) 31.4 TH/MM3 Lymphocytes # (Auto) 1.0 TH/MM3 Monocytes # (Auto) 4.3 TH/MM3 Eosinophils # (Auto) 0.1 TH/MM3 Basophils # (Auto) 0.1 TH/MM3 CBC Comment AUTO DIFF Differential Total Cells Counted 100 Neutrophils % (Manual) 67 % Band Neutrophils % 19 % Lymphocytes % 6 % Monocytes % 6 % Neutrophils # (Manual) 32.4 TH/MM3 Myelocytes 2 % Differential Comment FINAL DIFF MANUAL Platelet Estimate NORMAL Platelet Morphology Comment NORMAL Test 10/23/17 04:30 Blood Urea Nitrogen 27 MG/DL Creatinine 0.99 MG/DL Random Glucose 132 MG/DL Total Protein 5.1 GM/DL Albumin 1.7 GM/DL Calcium Level 6.8 MG/DL Phosphorus Level 2.5 MG/DL Magnesium Level 1.9 MG/DL Alkaline Phosphatase 58 U/L Aspartate Amino Transf (AST/SGOT) 34 U/L Alanine Aminotransferase (ALT/SGPT) 21 U/L Total Bilirubin 0.3 MG/DL Sodium Level 147 MEQ/L Potassium Level 3.7 MEQ/L Chloride Level 110 MEQ/L Carbon Dioxide Level 27.4 MEQ/L Anion Gap 10 MEQ/L Estimat Glomerular Filtration Rate 72 ML/MIN Protein Corrected Calcium 7.8 MG/DL Objective Remarks GENERAL: No acute distress. SKIN: Warm and dry. HEAD: Atraumatic. Normocephalic. EYES: Pupils equal and round. No scleral icterus. No injection or drainage. ENT: No nasal bleeding or discharge. Mucous membranes pink and dry. NECK: Trachea midline. No JVD. CARDIOVASCULAR: Irregular rate and rhythm. RESPIRATORY: clear to auscultation bilateral. GASTROINTESTINAL: Abdomen s distended. rectal tube in place. MUSCULOSKELETAL: Extremities with trace lower extremity edema NEUROLOGICAL: Awake and alert. No obvious cranial nerve deficits. Medications and IVs Current Medications Medications (Trade) Dose Ordered Sig/Timbo Route Start Time Stop Time Status Last Admin (NS Flush) 2 ml UNSCH PRN IV FLUSH 10/17/17 14:15 (NS Flush) 2 ml BID IV FLUSH 10/17/17 21:00 10/23/17 08:16 (Narcan Inj) 0.4 mg UNSCH PRN IV PUSH 10/17/17 14:15 (Milk Of Magnesia Liq) 30 ml Q12H PRN PO 10/17/17 14:15 (Senokot) 17.2 mg Q12H PRN PO 10/17/17 14:15 (Dulcolax Supp) 10 mg DAILY PRN RECTAL 10/17/17 14:15 (Lactulose Liq) 30 ml DAILY PRN PO 10/17/17 14:15 (Zofran Odt) 4 mg Q6H PRN PO 10/17/17 15:00 (Lactinex) 1 tab TID PO 10/17/17 18:00 10/23/17 08:04 (Lipitor) 20 mg HS PO 10/17/17 21:00 10/22/17 20:57 (TEGretol) 200 mg BID PO 10/17/17 21:00 10/23/17 08:04 (Plavix) 75 mg DAILY PO 10/18/17 09:00 10/23/17 08:05 (Ferrous Sulfate) 325 mg TIDPC PO 10/17/17 18:30 10/23/17 08:04 (Breo Ellipta 100-25 Inh) 1 puff DAILY INH 10/18/17 09:00 10/23/17 08:05 (Synthroid) 50 mcg DAILY@0600 PO 10/18/17 06:00 10/23/17 06:00 (Singulair) 10 mg HS PO 10/17/17 21:00 10/22/17 20:57 (Protonix) 40 mg DAILY PO 10/18/17 09:00 10/23/17 08:04 (Inderal) 10 mg Q12HR PO 10/17/17 21:00 Future Hold 10/18/17 09:50 (Zoloft) 25 mg HS PO 10/17/17 21:00 Future Hold 10/18/17 20:29 (Flonase Iftikhar Spr) 1 spray DAILY EACH NARE 10/18/17 09:00 10/23/17 08:05 (Heparin Inj) 5,000 units Q12HR SQ 10/17/17 21:00 10/23/17 08:03 (Pill Splitter) 1 ea UNSCH PRN OTHER 10/17/17 16:30 (VANCOMYCIN for oral use only) 500 mg QID PO 10/19/17 18:00 10/23/17 08:04 Metronidazole 100 ml @ 100 mls/hr Q6H IV 10/20/17 00:00 10/23/17 06:00 (Dificid) 200 mg BID PO 10/19/17 21:00 10/29/17 09:01 10/23/17 08:04 (Duoneb Neb) 1 ampule Q6HR NEB NEB 10/19/17 22:00 10/23/17 08:58 (Albuterol Neb) 2.5 mg Q2HR NEB PRN NEB 10/19/17 19:00 10/21/17 11:50 Acetaminophen 100 ml @ 400 mls/hr Q8H PRN IV 10/19/17 19:00 Levetriacetam 100 ml @ 400 mls/hr Q12HR IV 10/19/17 21:00 10/23/17 08:01 ([facility] [place] [facility]) Patient in critical care unit? Ass... Q361D .XX 10/19/17 22:30 10/19/17 22:30 (Chlorhexidine 2% Cloth) 3 pack DAILY@04 TOPICAL 10/20/17 04:00 10/24/17 04:01 10/23/17 03:37 (Chlorhexidine 2% Cloth) 3 pack UNSCH PRN TOPICAL 10/19/17 22:30 10/24/17 22:16 Vancomycin HCl 500 mg/Sodium Chloride 250 ml @ 0 mls/hr Q6HR IRRIGATION 10/20/17 13:00 10/23/17 06:00 Pharmacy Profile Note 0 ml @ 0 mls/hr UNSCH OTHER 10/20/17 21:00 Aztreonam 1000 mg/ Sodium Chloride 100 ml @ 200 mls/hr Q8H IV 10/20/17 23:00 10/23/17 07:58 Micafungin Sodium 100 mg/Sodium Chloride 100 ml @ 100 mls/hr Q24H IV 10/20/17 22:00 10/22/17 21:05 (Brethine Inj) 1 mg UNSCH PRN SQ 10/20/17 23:45 (Lopressor Inj) 5 mg Q5M PRN IV PUSH 10/22/17 05:15 10/23/17 09:38 Vancomycin HCl 1250 mg/Sodium Chloride 262.5 ml @ 250 mls/hr Q24H IV 10/22/17 12:00 10/22/17 16:40 ([facility] [place] [facility] Ordered Lab Info) SPECIFIC LAB TO BE PAULINE... ONCE ONCE .XX 10/24/17 11:45 10/24/17 11:46 ([facility] [place] [facility]) ALL NURSING DEPARTME... UNSCH PRN .XX 10/22/17 13:00 10/23/17 12:59 Potassium Chloride 100 ml @ 50 mls/hr Q2H PRN IV 10/22/17 17:45 Potassium Chloride 100 ml @ 50 mls/hr Q2H PRN IV 10/22/17 17:45 (K-Lyte Cl Eff) 50 meq UNSCH PRN PO 10/22/17 17:45 Potassium Chloride 100 ml @ 25 mls/hr UNSCH PRN IV 10/22/17 17:45 Potassium Chloride 100 ml @ 50 mls/hr Q2H PRN IV 10/22/17 17:45 Magnesium Sulfate 4 gm/Sodium Chloride 100 ml @ 50 mls/hr UNSCH PRN IV 10/22/17 17:45 (Mag-Ox) 800 mg UNSCH PRN PO 10/22/17 17:45 Magnesium Sulfate 2 gm/Sodium Chloride 100 ml @ 50 mls/hr UNSCH PRN IV 10/22/17 17:45 (K-Phos) 2,000 mg Q4H PRN PO 10/22/17 17:45 Sodium Phosphate 30 mmol/Sodium Chloride 250 ml @ 42 mls/hr UNSCH PRN IV 10/22/17 17:45 (K-Phos) 2,000 mg UNSCH PRN PO/TUBE 10/22/17 17:45 Potassium Phosphate 30 mmol/ Sodium Chloride 260 ml @ 42 mls/hr UNSCH PRN IV 10/22/17 17:45 (Lopressor) 12.5 mg Q6HR PO 10/22/17 18:00 10/23/17 06:00 (Free Water) VOLUME: 300 ML Q6HR G-TUBE 10/23/17 12:00 A/P Assessment and Plan 87 y/o Male with Severe Dementia, admitted with C Diff Colitis, Severe sepsis, acute kidney Injury, he will need meterman Rehabilitation at this moment DNR but continue with Aggressive goals. 1. Severe Sepsis with Leukocytosis, Acidosis, renal failure now improved, Hypotension and tachycardia C Diff colitis, Encephalopathy, MRSA urine, Aspiration Pneumonia, recommended to continue Vancomycin, Lactobacillus, Vancomycin enema, IV Flagyl, Dificid, continue Micafungin, Azactam following flood cultures, UA and Urine cultures , CXR. 2. Hypertension/Hyperlipidemia/Right bundle branch block/PAD/Atherosclerotic vascular disease Echocardiogram 2017 revealed ejection fraction of 55-60%. No regional wall motion abnormality. Mild TR. ON hold Lisinopril and Propranolol at this time on Atorvastatin, Plavix 75 mg daily. 3. COPD continue Nasal Cannula keep Oxygen saturation 92% or over, Bronchodilator, Mucolytics and Incentive spirometry. 4. GERD/Esophageal stricture/Pill Dysphagia/PEG tube placement status post removal/Nausea and vomit CT abdomen/pelvis on admission revealed pancolitis including the ascending colon. multiple attempts for NG tube placement, PPI, GI consult for NG tube placement EGD 5. Prostate Cancer History status post TURP 6. Hypothyroidism to continue Hormonal replacement 7. Acute Kidney Injury Improved Nephrology specialist following. 8. Anemia 9. C Diff Colitis on Fixadomicin 200 mg BID for 10 days, Vancomycin 500 mg by mouth four times a day, Metronidazole 500 mg IV every six hours Lactobacillus per ID. 10. 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 There is compensatory enlargement of the posterior horns of the lateral ventricles stable from prior exam Continue Levetiracetam 500 mg by mouth three times a day, and Carbamazepine 200 mg by mouth BID, on hold Gabapentin and Sertraline. to resume once mentation improves. PT evaluate and treat Prophylaxis GI-pantoprazole -DVT -SCD/heparin subcu Discharge Planning Once cleared by specialists. Mirza Celeste MD October 23, 2017 11:35
--- NOTE | 2017-10-23 11:47 | HHI.GIFU ---
Subjective Remarks Pt resting in bed. Per RN decreasing NGT output. (uArora Menendez) Objective Vitals I&O Vital Signs Date Time Temp Pulse Resp B/P (MAP) Pulse Ox O2 Delivery O2 Flow Rate FiO2 10/23/17 10:00 103 10/23/17 10:00 93 10/23/17 08:43 96 Nasal Cannula 3.00 10/23/17 08:00 103 10/23/17 08:00 99.4 103 25 144/63 (90) 96 10/23/17 06:00 104 10/23/17 04:00 98 10/23/17 04:00 98.6 98 25 168/74 (105) 94 10/23/17 02:00 91 10/23/17 00:00 98 10/23/17 00:00 98.4 98 26 151/67 (95) 93 10/22/17 22:00 106 10/22/17 20:16 96 Nasal Cannula 3.00 10/22/17 20:00 93 10/22/17 20:00 98.8 93 23 187/74 (111) 95 10/22/17 18:00 107 10/22/17 16:00 98.7 93 21 159/71 (100) 96 10/22/17 16:00 93 10/22/17 14:00 99 10/22/17 13:00 98 18 158/70 (99) 99 Nasal Cannula 4 10/22/17 12:50 106 18 164/71 (102) 99 Nasal Cannula 4 10/22/17 12:40 97.2 101 18 154/67 (96) 99 Nasal Cannula 4 I/O 10/22/17 10/22/17 10/22/17 10/23/17 10/23/17 10/23/17 07:00 15:00 23:00 07:00 15:00 23:00 Intake Total 600 ml 700 ml Output Total 600 ml 1600 ml 1550 ml 1000 ml Balance -600 ml -1000 ml -850 ml -1000 ml Intake Oral 0 ml IV Total 400 ml 700 ml Other 200 ml Output Urine Total 400 ml 400 ml 300 ml Stool Total 200 ml 1500 ml 400 ml 500 ml Gastric Drainage Total 100 ml 750 ml 200 ml Estimated Blood Loss 0 ml Laboratory Laboratory Tests Test 10/22/17 15:57 10/22/17 21:30 10/23/17 04:15 10/23/17 04:30 Hemoglobin 10.3 9.1 9.3 Hematocrit 30.8 25.9 28.6 White Blood Count 36.8 Red Blood Count 3.08 Mean Corpuscular Volume 92.6 Mean Corpuscular Hemoglobin 30.3 Mean Corpuscular Hemoglobin Concent 32.7 Red Cell Distribution Width 14.3 Platelet Count 290 Mean Platelet Volume 8.0 Neutrophils (%) (Auto) 85.2 Lymphocytes (%) (Auto) 2.7 Monocytes (%) (Auto) 11.6 Eosinophils (%) (Auto) 0.3 Basophils (%) (Auto) 0.2 Neutrophils # (Auto) 31.4 Lymphocytes # (Auto) 1.0 Monocytes # (Auto) 4.3 Eosinophils # (Auto) 0.1 Basophils # (Auto) 0.1 CBC Comment AUTO DIFF Differential Total Cells Counted 100 Neutrophils % (Manual) 67 Band Neutrophils % 19 Lymphocytes % 6 Monocytes % 6 Neutrophils # (Manual) 32.4 Myelocytes 2 Differential Comment FINAL DIFF MANUAL Platelet Estimate NORMAL Platelet Morphology Comment NORMAL Blood Urea Nitrogen 27 Creatinine 0.99 Random Glucose 132 Total Protein 5.1 Albumin 1.7 Calcium Level 6.8 Phosphorus Level 2.5 Magnesium Level 1.9 Alkaline Phosphatase 58 Aspartate Amino Transf (AST/SGOT) 34 Alanine Aminotransferase (ALT/SGPT) 21 Total Bilirubin 0.3 Sodium Level 147 Potassium Level 3.7 Chloride Level 110 Carbon Dioxide Level 27.4 Anion Gap 10 Estimat Glomerular Filtration Rate 72 Protein Corrected Calcium 7.8 Date/Time Source Procedure Growth Status 10/20/17 21:09 Blood Peripheral Aerobic Blood Culture - Preliminary NO GROWTH IN 3 DAYS Resulted 10/20/17 21:09 Blood Peripheral Anaerobic Blood Culture - Preliminary NO GROWTH IN 3 DAYS Resulted 10/17/17 10:50 Stool Stool Stool Occult Blood (JONNA) - Final HEMOCCULT NEGATIVE Complete 10/17/17 13:00 Urine Catheterized Urine Urine Culture - Final S. Aureus Mrsa Complete Imaging Last Impressions Chest X-Ray 10/22/17 0000 Signed Impressions: Service Date/Time: Sunday, October 22, 2017 15:12 - CONCLUSION: 1. NGT beyond the GE junction. 2. Patchy left lower lobe airspace disease. 3. Right midlung zone atelectasis lie scarring. Kwesi Humphreys MD Abdomen X-Ray 10/21/17 0000 Signed Impressions: Service Date/Time: Saturday, October 21, 2017 15:43 - CONCLUSION: Stable examination with mild diffuse gaseous distention of the small bowel consistent with adynamic ileus. Kwesi Humphreys MD Abdomen/Pelvis CT 10/19/172041 Signed Impressions: Service Date/Time: October 22:34 - CONCLUSION: 1. Pancolitis without obstruction, perforation, or abscess. 2. Small volume ascites. Manish Jenkins Jr., MD Renal Ultrasound 10/19/17 0000 Signed Impressions: Service Date/Time: October 15:24 - CONCLUSION: 1. Increased echogenicity of the renal parenchyma bilaterally. This can be seen with chronic medical renal disease. 2. No hydronephrosis. Keo Trevizo MD Head CT 10/17/17 104 Signed Impressions: Service Date/Time: Tuesday, October 17, 2017 11:07 - CONCLUSION: 1. No acute intracranial abnormality or significant interval change. Kwesi Humphreys MD Physical Exam HEENT: normocephalic; atraumatic; no jaundice. CHEST: wheezes, rhonchi CARDIAC: tachy ABDOMEN: semifirm, distended, nontender; BS + EXTREMITIES: No clubbing, cyanosis, generalized edema SKIN: Normal; no rash; no jaundice. RIB CUTTER: alert (Aurora Menendez ORGANIZATIONAL PSYCHOLOGIST) Assessment and Plan Plan Assessment: - Coffee ground emesis- one episode earlier today H/H has been fairly stable since admission. Last EGD in Jul [address] Aundrea perrin (Jul 2017) --> Z line was located 36 cm from the incisors. There was a short stricture in the distal esophagus, multiple biopsies performed, stricture dilated using a 16 mm, mild antral gastropathy, normal duodenal mucosa in the entire examined duodenum, hiatal hernia. Pathology (gastric body and antral mucosa) mild chronic nonspecific antral gastritis negative for intestinal metaplasia and dysplasia (gastric mucosal tissue) severe chronic inflammatory changes negative for intestinal metaplasia and dysplasia, clinically stricture. Per RN multiple attempts at NG tube has been unsuccessful - Dysphagia- History of esophageal stricture as noted above, per POA at bedside pt normally receives relief of symptoms for about a year after dilatation. Per RN has failed swallow eval. Pt previously had G-tube in 2014, has since been removed - C. Diff colitis CT abdomen and pelvis reveals pancolitis ID following- Dificid, Vanco, Flagyl Hypotension- currently BP stable- Jere on hold 10/23/17 s/p EGD and NGT placement, 400cc gastric juice suctioned. decreasing NGT output. pt denies abd pain. WBC up. HH stable. Plan: consider starting trickle feeds monitor labs Transfuse as needed Protonix Abx per ID Pt has been seen and examined by myself and Dr. Padron and this note is on his behalf (Aurora Menendez) Physician Comments Patient seen and examined Agree with above Continue with current supportive care Monitor labs Resume tube feeding (Igor Padron MD) Aurora Menendez October 23, 2017 11:46 Igor Padron MD October 23, 2017 22:05
[2017-10-23 11:59] LABS: HEMATOCRIT 30.1 % (39.0-51.0); HEMOGLOBIN 9.9 GM/DL (13.0-17.0)
--- NOTE | 2017-10-23 12:22 | HHI.HCPN ---
Reason for visit a. To assist with evaluation and management of symptoms including: pain, dyspnea, debility. b. To assist medical decision maker(s) with: better understanding of current medical conditions; weighing benefits/burdens of medical treatment options; making medical treatment decisions. . Subjective/Interval History Palliative care follow-up for further clarifications of goals of care. Patient seen in medical ICU, worsening bed in no acute distress. Patient alert to self , disoriented as to place and situation. Verbal, not always able to communicate needs secondary to confusion. He was able to tell me his name, unable to tell me his age, location or why he was at the hospital. Patient endorsing shortness of breath on exertion, denies nausea/vomiting or abdominal discomfort. Abdomen less distended than previously noted. On 10/21 patient failed swallow evaluation, large amount of coffee-ground emesis was reported. On 10/22, patient underwent diagnostic EGD with NG tube placement. No acute findings noted. Renal function mildly improving, NG tube output decreasing. Infectious disease following for C. difficile colitis, remains on Flagyl and vancomycin IV and NM. Patient afebrile, stable hemodynamically. Currently tolerating O2 via nasal cannula 3 L with oxygen saturation in the mid 90s. Laboratory workup today revealing persistent leukocytosis, WBC 36.8, Hgb stable at 9.3, BUN/creatinine 27/0.99. Most recent chest x-ray 10/22 revealing patchy left lower lobe airspace disease, right midlung zone atelectasis. No family at bedside during my visit. Telephone conversation with patient's nephew/healthcare surrogate decision maker Nickolas Renteria. Medical update provided. Nephew voicing concerns regarding patient's clinical condition, reviewed that patient remains at high risk for further decompensation and . Nephew verbalized that goals of care remain aggressive short of no resuscitation. Nephew reports that patient had a fairly acceptable quality of life before this acute event, long-term resident of [facility]. Patient resides with his , he was able to ambulate with walker and able to participate with activities of daily living. Hospice philosophy and benefits previously reviewed , family appears receptive to hospice should patient's clinical condition does not improve or worsen. Case discussed with Dr. Mohsen Grimaldo and bedside RN Trina. . Family/friend interactions See interval note. . Advance Directives Living Will: Copy in medical record Health Care Surrogate: Copy in medical record Durable Power of Attraction Attendant: Copy in medical record Advance Directive Specifics Date completed: 08/03/2015. . Health Care Surrogate(s): Nephew Nickolas Renteria. Alternate surrogate is his niece Francisca Sanches. . Documented care wishes: Living will with standard verbiage. . Significant change in goals: Aggressive management short of no resuscitation. . Objective Vital Signs Date Time Temp Pulse Resp B/P (MAP) Pulse Ox O2 Delivery O2 Flow Rate FiO2 10/23/17 10:00 103 10/23/17 10:00 93 10/23/17 08:43 96 Nasal Cannula 3.00 10/23/17 08:00 103 10/23/17 08:00 99.4 103 25 144/63 (90) 96 10/23/17 06:00 104 10/23/17 04:00 98 10/23/17 04:00 98.6 98 25 168/74 (105) 94 10/23/17 02:00 91 10/23/17 00:00 98 10/23/17 00:00 98.4 98 26 151/67 (95) 93 10/22/17 22:00 106 10/22/17 20:16 96 Nasal Cannula 3.00 10/22/17 20:00 93 10/22/17 20:00 98.8 93 23 187/74 (111) 95 10/22/17 18:00 107 10/22/17 16:00 98.7 93 21 159/71 (100) 96 10/22/17 16:00 93 10/22/17 14:00 99 10/22/17 13:00 98 18 158/70 (99) 99 Nasal Cannula 4 10/22/17 12:50 106 18 164/71 (102) 99 Nasal Cannula 4 10/22/17 12:40 97.2 101 18 154/67 (96) 99 Nasal Cannula 4 Intake & Output 10/23/17 10/23/17 06:59 18:59 Output Total 1000 ml Balance -1000 ml Output Urine Total 300 ml Stool Total 500 ml Gastric Drainage Total 200 ml Physical Exam CONSTITUTIONAL/GENERAL: This is an ill-looking elderly man resting in bed in no acute distress. TUBES/LINES/DRAINS: Nasal cannula, Han catheter, PIV's. SCDs, rectal tube. SKIN: Very pale. no jaundice, rashes, or lesions. Skin temperature appropriate. Not diaphoretic. Ecchymosis to bilateral upper extremities. HEAD: Atraumatic. Normocephalic. EYES: Pupils equal and round and reactive. Extraocular motions intact. No scleral icterus. No injection or drainage. ENT: Hard of hearing. Nose without bleeding or purulent drainage. Moist oral mucosa. NECK: Trachea midline. Supple, nontender. CARDIOVASCULAR: Regular rate and rhythm. Peripheral pulses symmetric. RESPIRATORY/CHEST: Symmetric, increased work of breathing with speech. Mild inspiratory wheezes, right more than left. O2 via nasal cannula 3 L. GASTROINTESTINAL: Abdomen round, large, distended and tender touch, distention improving. small protruding hernia to former site of PEG tube (scar). GENITOURINARY: Han catheter in place. MUSCULOSKELETAL: Extremities without clubbing, cyanosis. Edema to bilateral upper extremities. NEUROLOGICAL: Awake and alert to self, confused as to place and situation. Verbal, cannot always communicate needs secondary to confusion. PSYCHIATRIC: Calm. . Diagnostic Tests Laboratory Laboratory Tests Test 10/20/17 21:09 10/21/17 04:13 10/21/17 16:05 10/21/17 18:00 White Blood Count 29.5 TH/MM3 (4.0-11.0) 37.1 TH/MM3 (4.0-11.0) Red Blood Count 2.78 MIL/MM3 (4.50-5.90) 3.04 MIL/MM3 (4.50-5.90) Hemoglobin 8.5 GM/DL (13.0-17.0) 9.6 GM/DL (13.0-17.0) 10.1 GM/DL (13.0-17.0) Hematocrit 25.6 % (39.0-51.0) 28.6 % (39.0-51.0) 30.4 % (39.0-51.0) Mean Corpuscular Volume 92.1 FL (80.0-100.0) 93.9 FL (80.0-100.0) Mean Corpuscular Hemoglobin 30.6 PG (27.0-34.0) 31.4 PG (27.0-34.0) Mean Corpuscular Hemoglobin Concent 33.2 % (32.0-36.0) 33.4 % (32.0-36.0) Red Cell Distribution Width 14.1 % (11.6-17.2) 14.3 % (11.6-17.2) Platelet Count 241 TH/MM3 (150-450) 275 TH/MM3 (150-450) Mean Platelet Volume 8.0 FL (7.0-11.0) 8.2 FL (7.0-11.0) Blood Urea Nitrogen 49 MG/DL (7-18) 49 MG/DL (7-18) Creatinine 2.50 MG/DL (0.60-1.30) 2.13 MG/DL (0.60-1.30) Random Glucose 159 MG/DL (74-106) 126 MG/DL (74-106) Total Protein 4.7 GM/DL (6.4-8.2) 5.2 GM/DL (6.4-8.2) Albumin 1.6 GM/DL (3.4-5.0) 1.7 GM/DL (3.4-5.0) Calcium Level 6.6 MG/DL (8.5-10.1) 6.7 MG/DL (8.5-10.1) Magnesium Level 1.9 MG/DL (1.5-2.5) 2.0 MG/DL (1.5-2.5) Alkaline Phosphatase 50 U/L (45-117) 61 U/L (45-117) Aspartate Amino Transf (AST/SGOT) 20 U/L (15-37) 26 U/L (15-37) Alanine Aminotransferase (ALT/SGPT) 13 U/L (12-78) 16 U/L (12-78) Total Bilirubin 0.3 MG/DL (0.2-1.0) 0.3 MG/DL (0.2-1.0) Sodium Level 142 MEQ/L (136-145) 142 MEQ/L (136-145) Potassium Level 3.1 MEQ/L (3.5-5.1) 3.9 MEQ/L (3.5-5.1) Chloride Level 111 MEQ/L (98-107) 111 MEQ/L (98-107) Carbon Dioxide Level 18.5 MEQ/L (21.0-32.0) 19.5 MEQ/L (21.0-32.0) Anion Gap 13 MEQ/L (5-15) 12 MEQ/L (5-15) Estimat Glomerular Filtration Rate 25 ML/MIN (>89) 30 ML/MIN (>89) Protein Corrected Calcium 7.8 MG/DL (8.5-10.1) 7.7 MG/DL (8.5-10.1) Neutrophils (%) (Auto) 86.1 % (16.0-70.0) Lymphocytes (%) (Auto) 2.5 % (9.0-44.0) Monocytes (%) (Auto) 10.6 % (0.0-8.0) Eosinophils (%) (Auto) 0.6 % (0.0-4.0) Basophils (%) (Auto) 0.2 % (0.0-2.0) Neutrophils # (Auto) 31.9 TH/MM3 (1.8-7.7) Lymphocytes # (Auto) 0.9 TH/MM3 (1.0-4.8) Monocytes # (Auto) 3.9 TH/MM3 (0-0.9) Eosinophils # (Auto) 0.2 TH/MM3 (0-0.4) Basophils # (Auto) 0.1 TH/MM3 (0-0.2) CBC Comment AUTO DIFF Differential Total Cells Counted 100 Neutrophils % (Manual) 81 % (16-70) Band Neutrophils % 8 % (0-6) Lymphocytes % 3 % (9-44) Monocytes % 8 % (0-8) Neutrophils # (Manual) 33.0 TH/MM3 (1.8-7.7) Differential Comment FINAL DIFF MANUAL Platelet Estimate NORMAL (NORMAL) Platelet Morphology Comment NORMAL (NORMAL) [place] Cells 1+ (NORMAL) Acanthocytes 1+ (NORMAL) Keratocytes OCC (NORMAL) Phosphorus Level 3.3 MG/DL (2.5-4.9) Random Vancomycin Level 17.6 COMMENT Test 10/21/17 22:21 10/22/17 04:10 10/22/17 10:42 10/22/17 15:57 Hemoglobin 9.5 GM/DL (13.0-17.0) 10.0 GM/DL (13.0-17.0) 10.3 GM/DL (13.0-17.0) 10.3 GM/DL (13.0-17.0) Hematocrit 28.0 % (39.0-51.0) 29.4 % (39.0-51.0) 30.8 % (39.0-51.0) 30.8 % (39.0-51.0) White Blood Count 27.8 TH/MM3 (4.0-11.0) Red Blood Count 3.21 MIL/MM3 (4.50-5.90) Mean Corpuscular Volume 91.7 FL (80.0-100.0) Mean Corpuscular Hemoglobin 31.3 PG (27.0-34.0) Mean Corpuscular Hemoglobin Concent 34.1 % (32.0-36.0) Red Cell Distribution Width 13.9 % (11.6-17.2) Platelet Count 276 TH/MM3 (150-450) Mean Platelet Volume 8.1 FL (7.0-11.0) Neutrophils (%) (Auto) 85.3 % (16.0-70.0) Lymphocytes (%) (Auto) 2.7 % (9.0-44.0) Monocytes (%) (Auto) 11.6 % (0.0-8.0) Eosinophils (%) (Auto) 0.3 % (0.0-4.0) Basophils (%) (Auto) 0.1 % (0.0-2.0) Neutrophils # (Auto) 23.8 TH/MM3 (1.8-7.7) Lymphocytes # (Auto) 0.8 TH/MM3 (1.0-4.8) Monocytes # (Auto) 3.2 TH/MM3 (0-0.9) Eosinophils # (Auto) 0.1 TH/MM3 (0-0.4) Basophils # (Auto) 0.0 TH/MM3 (0-0.2) CBC Comment AUTO DIFF Differential Total Cells Counted 100 Neutrophils % (Manual) 83 % (16-70) Band Neutrophils % 3 % (0-6) Lymphocytes % 1 % (9-44) Monocytes % 13 % (0-8) Neutrophils # (Manual) 23.9 TH/MM3 (1.8-7.7) Differential Comment FINAL DIFF MANUAL Platelet Estimate NORMAL (NORMAL) Platelet Morphology Comment NORMAL (NORMAL) Basophilic Stippling FAINT (NORMAL) Ovalocytes 1+ (NORMAL) Blood Urea Nitrogen 35 MG/DL (7-18) Creatinine 1.20 MG/DL (0.60-1.30) Random Glucose 181 MG/DL (74-106) Total Protein 5.4 GM/DL (6.4-8.2) Calcium Level 6.9 MG/DL (8.5-10.1) Phosphorus Level 1.8 MG/DL (2.5-4.9) Magnesium Level 2.0 MG/DL (1.5-2.5) Sodium Level 145 MEQ/L (136-145) Potassium Level 2.9 MEQ/L (3.5-5.1) Chloride Level 108 MEQ/L (98-107) Carbon Dioxide Level 26.7 MEQ/L (21.0-32.0) Anion Gap 10 MEQ/L (5-15) Estimat Glomerular Filtration Rate 57 ML/MIN (>89) Protein Corrected Calcium 7.8 MG/DL (8.5-10.1) Random Vancomycin Level 13.1 COMMENT Test 10/22/17 21:30 10/23/17 04:15 10/23/17 04:30 10/23/17 11:27 Hemoglobin 9.1 GM/DL (13.0-17.0) 9.3 GM/DL (13.0-17.0) 9.9 GM/DL (13.0-17.0) Hematocrit 25.9 % (39.0-51.0) 28.6 % (39.0-51.0) 30.1 % (39.0-51.0) White Blood Count 36.8 TH/MM3 (4.0-11.0) Red Blood Count 3.08 MIL/MM3 (4.50-5.90) Mean Corpuscular Volume 92.6 FL (80.0-100.0) Mean Corpuscular Hemoglobin 30.3 PG (27.0-34.0) Mean Corpuscular Hemoglobin Concent 32.7 % (32.0-36.0) Red Cell Distribution Width 14.3 % (11.6-17.2) Platelet Count 290 TH/MM3 (150-450) Mean Platelet Volume 8.0 FL (7.0-11.0) Neutrophils (%) (Auto) 85.2 % (16.0-70.0) Lymphocytes (%) (Auto) 2.7 % (9.0-44.0) Monocytes (%) (Auto) 11.6 % (0.0-8.0) Eosinophils (%) (Auto) 0.3 % (0.0-4.0) Basophils (%) (Auto) 0.2 % (0.0-2.0) Neutrophils # (Auto) 31.4 TH/MM3 (1.8-7.7) Lymphocytes # (Auto) 1.0 TH/MM3 (1.0-4.8) Monocytes # (Auto) 4.3 TH/MM3 (0-0.9) Eosinophils # (Auto) 0.1 TH/MM3 (0-0.4) Basophils # (Auto) 0.1 TH/MM3 (0-0.2) CBC Comment AUTO DIFF Differential Total Cells Counted 100 Neutrophils % (Manual) 67 % (16-70) Band Neutrophils % 19 % (0-6) Lymphocytes % 6 % (9-44) Monocytes % 6 % (0-8) Neutrophils # (Manual) 32.4 TH/MM3 (1.8-7.7) Myelocytes 2 % (0-0) Differential Comment FINAL DIFF MANUAL Platelet Estimate NORMAL (NORMAL) Platelet Morphology Comment NORMAL (NORMAL) Blood Urea Nitrogen 27 MG/DL (7-18) Creatinine 0.99 MG/DL (0.60-1.30) Random Glucose 132 MG/DL (74-106) Total Protein 5.1 GM/DL (6.4-8.2) Albumin 1.7 GM/DL (3.4-5.0) Calcium Level 6.8 MG/DL (8.5-10.1) Phosphorus Level 2.5 MG/DL (2.5-4.9) Magnesium Level 1.9 MG/DL (1.5-2.5) Alkaline Phosphatase 58 U/L (45-117) Aspartate Amino Transf (AST/SGOT) 34 U/L (15-37) Alanine Aminotransferase (ALT/SGPT) 21 U/L (12-78) Total Bilirubin 0.3 MG/DL (0.2-1.0) Sodium Level 147 MEQ/L (136-145) Potassium Level 3.7 MEQ/L (3.5-5.1) Chloride Level 110 MEQ/L (98-107) Carbon Dioxide Level 27.4 MEQ/L (21.0-32.0) Anion Gap 10 MEQ/L (5-15) Estimat Glomerular Filtration Rate 72 ML/MIN (>89) Protein Corrected Calcium 7.8 MG/DL (8.5-10.1) Result Diagram: 10/23/17 1127 10/23/17 0430 Microbiology Microbiology Date/Time Source Procedure Growth Status 10/20/17 21:09 Blood Peripheral Aerobic Blood Culture - Preliminary NO GROWTH IN 3 DAYS Resulted 10/20/17 21:09 Blood Peripheral Anaerobic Blood Culture - Preliminary NO GROWTH IN 3 DAYS Resulted Imaging Last 48 hours Impressions Chest X-Ray 10/22/17 0000 Signed Impressions: Service Date/Time: Sunday, October 22, 2017 15:12 - CONCLUSION: 1. NGT beyond the GE junction. 2. Patchy left lower lobe airspace disease. 3. Right midlung zone atelectasis lie scarring. Kwesi Humphreys MD Procedures * 10/22/17 -diagnostic EGD . Assessment and Plan Disease Oriented Problem List: (1) Sepsis (2) Clostridium difficile colitis (3) Acute kidney injury (4) COPD (chronic obstructive pulmonary disease) (5) Seizure disorder (6) Dementia (7) Physical deconditioning Symptom Scale: (1) Dyspnea 0-10 Scale: Unable to quantify (2) Pain 0-10 Scale: Unable to quantify (3) Debility 0-10 Scale: Unable to quantify Pertinent Non-Medical Issues Psychosocial: Originally from [place]. , no biological children. Retired. Worked in construction, no service. Resident of [facility]. Spiritual: [employer] catherine. Legal: Advance directives completed. Ethical issues impacting care: No ethical issues identified. . Important Contacts Nephew/healthcare surrogate Nickolas Renteria . . Prognosis Mr. Lucas is an 87-year-old male with a medical history significant for dementia, hypertension, COPD, prostate cancer, GERD and seizure. Patient presented to ED via EMS on 10/17/17 with reports of altered mental status, headaches and diarrhea. Patient was admitted with C. difficile and UTI. Clinical course complicated with worsening abdominal distention, acute kidney injury and severe sepsis. Overall prognosis appears poor in the setting of sepsis, C. difficile colitis, acute renal failure, dementia, multiple chronic ongoing comorbidities, advanced age and profound physical deconditioning. Patient appears hospice appropriate should family elects comfort-directed care. . Code Status: No Code Plan * CODE STATUS: No code. DNR/DNI. Confirmed CODE STATUS with healthcare surrogate Nickolas Renteria on 10/23/17. * HEALTHCARE DECISION-MAKING: Patient unable to participating medical decision making secondary to clinical condition, baseline dementia with acute illness. Advanced directives completed, most recent advanced directive dated 08/03/2015 naming patient's nephew Nickolas Renteria as healthcare surrogate decision maker, alternate surrogate is kyler Sanches. Nickolas Renteria has fully accepted this role. * GOALS OF CARE: As per patient's nephew/healthcare surrogate decision maker Nickolas Renteria, goals of therapy remain aggressive short of no resuscitation. Nephew wishing to allow a few more days for clinical improvement, he reports that patient's quality of life was good prior to this acute hospitalization. Family hoping for patient to return to his long-term facility where he resides with his . Hospice philosophy and benefits previously reviewed, family appears receptive to hospice should patient's clinical condition does not improve or worsen. * SYMPTOMS: = Dyspnea, multifactorial secondary to COPD, sepsis, acute illness. Currently tolerating O2 via nasal cannula at 3 L. = Pain: Abdominal pain secondary to distention, active C. difficile colitis. Infectious disease following, opiates not recommended in the setting of severe abdominal distention /colitis. Patient appears comfortable during my visit, no further recommendations. = Debility: Patient resident of [facility], requires assistance with all ADLs besides feedings. Poor activity tolerance. Debility likely to worsen. * Case discussed with Dr. Mohsen Grimaldo and bedside RN Trina. * Palliative care contact information has been provided to patient and family. * Palliative care will continue to follow up for further clarification of goals of care as patient's clinical course continues to evolve. . Time Spent Total Floor Time (mins): 34 (Total time to include review of medical records since last visit, physical exam, goals of care conversation with patient's healthcare surrogate, case discussion with infectious disease and bedside RN.) >50% Counseling/Coord of Care: Yes Attestation To help prompt me to consider important information that might be impacting today's encounter and assessment, information from prior notes written by myself or my colleagues may have been "brought forward" into today's note. My signature on this note, however, is an attestation that I personally performed the exam, history, and/or decision-making noted today, and, unless otherwise indicated, the interactions with patient, family, and staff as well as the review of records all occurred today. I also attest that the listed assessment and stated plan reflect my best clinical judgment today based on the combination of historical information, prior notes, and today's exam/ interactions. When time spent is documented, it refers only to time spent today by the signer, or if indicated, combined time spent today by collaborating physician/nurse practitioner. Nuvia Adames October 23, 2017 12:22
--- NOTE | 2017-10-23 13:43 | HHI.IDPN ---
Subjective Subjective Remarks is an 87-year-old male with a past medical history significant for dementia, arthritis, prostate cancer, HTN, HLD, TIA, COPD, GERD, seizures, presented to the ED after being sent from [facility] due to worsening altered mental status and diarrhea. Due to patient's severe dementia, history is obtained from review of electronic medical record. Patient was found to be in sepsis with white count 29.5, fever of 102.[address] scan of the abdomen and pelvis revealed pancolitis most pronounced involving the ascending colon. Urinalysis was significant for MRSA. C diff testing was positive. Patient was started on oral vancomycin. Patient's white count continued to trend upwards and he was started on oral Flagyl and his vancomycin dose was increased. His white count today is 43.9 with left shift and bandemia. He is also found to have acute renal failure with elevated creatinine of 2.34 nephrology was consulted. Patient is acidotic with bicarb of 14.5 and is currently on bicarb drip. Infectious disease consultation has been requested for evaluation and management of severe C. difficile infection and MRSA in the urine. Patient seen and examined. He is currently afebrile. Patient has been hypotensive today. Blood pressure has improved to 109/55 from 89/44 earlier this morning. He appears extremely dry on exam. He can be heard audibly wheezing. Discussed with the nursing staff who states his urine output has been extremely low. He was given IV fluid bolus and is on 125 cc of maintenance fluids. Patient has had 5 blackish green sticky bowel movements today of moderate volume. Patient has previous urine cultures with MRSA. He also has a history of ESBL E. coli in the urine. Overnight events reviewed dw RN 500 cc liquid stool. Awake, responsive confused. Follows simple commands. When asked denies abd pain No Nausea or vomiting. Antibiotics Vanco oral Vanco enema Dificid Flagyl also started on azacta, micafungin and given 1 dose of vanco iv Lines Line sites with no e.o infection Past Medical History Past Medical History Dementia COPD Hypertension Seizure disorder History of TIAs Hypertension Dyslipidemia Cardiovascular disease GERD Urinary incontinence Prostate cancer History of previous MRSA and ESBL E. coli in urine History of coagulase negative staph bacteremia Hypothyroidism Past Surgical History Percutaneous endoscopic gastrostomy placement in November 2014 status post removal Appendectomy Bilateral hip surgeries with hardware Left ear cancer surgery Bilateral cataracts Prostatectomy Right carotid endarterectomy Tonsillectomy Allergies: Coded Allergies: amoxicillin (Unverified Allergy, Severe, Shortness of Breath, 10/17/17) clavulanic acid (Unverified Allergy, Severe, Shortness of Breath, 10/17/17) imipramine (Unverified Allergy, Severe, SEIZURE, 10/17/17) primidone (Unverified Allergy, Severe, SEIZURE, 10/17/17) Sulfa (Sulfonamide Antibiotics) (Unverified Allergy, Unknown, Rash, ) Objective . Vital Signs Date Time Temp Pulse Resp B/P (MAP) Pulse Ox O2 Delivery O2 Flow Rate FiO2 10/23/17 12:00 99.6 99 31 152/105 (121) 97 10/23/17 12:00 99 10/23/17 10:00 103 10/23/17 10:00 93 10/23/17 08:43 96 Nasal Cannula 3.00 10/23/17 08:00 103 10/23/17 08:00 99.4 103 25 144/63 (90) 96 10/23/17 06:00 104 10/23/17 04:00 98 10/23/17 04:00 98.6 98 25 168/74 (105) 94 10/23/17 02:00 91 10/23/17 00:00 98 10/23/17 00:00 98.4 98 26 151/67 (95) 93 10/22/17 22:00 106 10/22/17 20:16 96 Nasal Cannula 3.00 10/22/17 20:00 93 10/22/17 20:00 98.8 93 23 187/74 (111) 95 10/22/17 18:00 107 10/22/17 16:00 98.7 93 21 159/71 (100) 96 10/22/17 16:00 93 10/22/17 14:00 99 . Laboratory Tests Test 10/21/17 16:05 10/21/17 22:21 10/22/17 04:10 10/22/17 10:42 Hemoglobin 10.1 GM/DL 9.5 GM/DL 10.0 GM/DL 10.3 GM/DL Hematocrit 30.4 % 28.0 % 29.4 % 30.8 % White Blood Count 27.8 TH/MM3 Red Blood Count 3.21 MIL/MM3 Mean Corpuscular Volume 91.7 FL Mean Corpuscular Hemoglobin 31.3 PG Mean Corpuscular Hemoglobin Concent 34.1 % Red Cell Distribution Width 13.9 % Platelet Count 276 TH/MM3 Mean Platelet Volume 8.1 FL Neutrophils (%) (Auto) 85.3 % Lymphocytes (%) (Auto) 2.7 % Monocytes (%) (Auto) 11.6 % Eosinophils (%) (Auto) 0.3 % Basophils (%) (Auto) 0.1 % Neutrophils # (Auto) 23.8 TH/MM3 Lymphocytes # (Auto) 0.8 TH/MM3 Monocytes # (Auto) 3.2 TH/MM3 Eosinophils # (Auto) 0.1 TH/MM3 Basophils # (Auto) 0.0 TH/MM3 CBC Comment AUTO DIFF Differential Total Cells Counted 100 Neutrophils % (Manual) 83 % Band Neutrophils % 3 % Lymphocytes % 1 % Monocytes % 13 % Neutrophils # (Manual) 23.9 TH/MM3 Differential Comment FINAL DIFF MANUAL Platelet Estimate NORMAL Platelet Morphology Comment NORMAL Basophilic Stippling FAINT Ovalocytes 1+ Test 10/22/17 15:57 10/22/17 21:30 10/23/17 04:15 10/23/17 11:27 Hemoglobin 10.3 GM/DL 9.1 GM/DL 9.3 GM/DL 9.9 GM/DL Hematocrit 30.8 % 25.9 % 28.6 % 30.1 % White Blood Count 36.8 TH/MM3 Red Blood Count 3.08 MIL/MM3 Mean Corpuscular Volume 92.6 FL Mean Corpuscular Hemoglobin 30.3 PG Mean Corpuscular Hemoglobin Concent 32.7 % Red Cell Distribution Width 14.3 % Platelet Count 290 TH/MM3 Mean Platelet Volume 8.0 FL Neutrophils (%) (Auto) 85.2 % Lymphocytes (%) (Auto) 2.7 % Monocytes (%) (Auto) 11.6 % Eosinophils (%) (Auto) 0.3 % Basophils (%) (Auto) 0.2 % Neutrophils # (Auto) 31.4 TH/MM3 Lymphocytes # (Auto) 1.0 TH/MM3 Monocytes # (Auto) 4.3 TH/MM3 Eosinophils # (Auto) 0.1 TH/MM3 Basophils # (Auto) 0.1 TH/MM3 CBC Comment AUTO DIFF Differential Total Cells Counted 100 Neutrophils % (Manual) 67 % Band Neutrophils % 19 % Lymphocytes % 6 % Monocytes % 6 % Neutrophils # (Manual) 32.4 TH/MM3 Myelocytes 2 % Differential Comment FINAL DIFF MANUAL Platelet Estimate NORMAL Platelet Morphology Comment NORMAL Laboratory Tests Test 10/22/17 04:10 10/23/17 04:30 Blood Urea Nitrogen 35 MG/DL 27 MG/DL Creatinine 1.20 MG/DL 0.99 MG/DL Random Glucose 181 MG/DL 132 MG/DL Total Protein 5.4 GM/DL 5.1 GM/DL Calcium Level 6.9 MG/DL 6.8 MG/DL Phosphorus Level 1.8 MG/DL 2.5 MG/DL Magnesium Level 2.0 MG/DL 1.9 MG/DL Sodium Level 145 MEQ/L 147 MEQ/L Potassium Level 2.9 MEQ/L 3.7 MEQ/L Chloride Level 108 MEQ/L 110 MEQ/L Carbon Dioxide Level 26.7 MEQ/L 27.4 MEQ/L Anion Gap 10 MEQ/L 10 MEQ/L Estimat Glomerular Filtration Rate 57 ML/MIN 72 ML/MIN Protein Corrected Calcium 7.8 MG/DL 7.8 MG/DL Albumin 1.7 GM/DL Alkaline Phosphatase 58 U/L Aspartate Amino Transf (AST/SGOT) 34 U/L Alanine Aminotransferase (ALT/SGPT) 21 U/L Total Bilirubin 0.3 MG/DL Microbiology Date/Time Source Procedure Growth Status 10/20/17 21:09 Blood Peripheral Aerobic Blood Culture - Preliminary NO GROWTH IN 3 DAYS Resulted 10/20/17 21:09 Blood Peripheral Anaerobic Blood Culture - Preliminary NO GROWTH IN 3 DAYS Resulted Imaging Last Impressions Abdomen X-Ray 10/21/17 0000 Signed Impressions: Service Date/Time: Saturday, October 21, 2017 15:43 - CONCLUSION: Stable examination with mild diffuse gaseous distention of the small bowel consistent with adynamic ileus. Kwesi Humphreys MD Abdomen/Pelvis CT 10/19/172041 Signed Impressions: Service Date/Time: October 22:34 - CONCLUSION: 1. Pancolitis without obstruction, perforation, or abscess. 2. Small volume ascites. Manish Jenkins Jr., MD Chest X-Ray 10/19/17 1803 Signed Impressions: Service Date/Time: October 18:17 - CONCLUSION: No acute disease. Yung Green MD Renal Ultrasound 10/19/17 0000 Signed Impressions: Service Date/Time: October 15:24 - CONCLUSION: 1. Increased echogenicity of the renal parenchyma bilaterally. This can be seen with chronic medical renal disease. 2. No hydronephrosis. Keo Trevizo MD Head CT 10/17/17 1042 Signed Impressions: Service Date/Time: Tuesday, October 17, 2017 11:07 - CONCLUSION: 1. No acute intracranial abnormality or significant interval change. Kwesi Humphreys MD Physical Exam GENERAL: This is a well-nourished, male patient, NAD. Awake. Able to follow simple commands. Confused. SKIN: No rashes, ecchymoses or lesions. Cool and dry. EYES: Pupils equal round and reactive. Extraocular motions intact. No scleral icterus. No injection or drainage. ENT: Nose without bleeding or purulent drainage. Throat without erythema, tonsillar hypertrophy or exudate. Uvula midline. Airway patent. Dry mucous membranes NECK: Trachea midline. No JVD or lymphadenopathy. Supple, nontender, no meningeal signs. CARDIOVASCULAR: Regular rate and rhythm without murmurs, gallops, or rubs. RESPIRATORY: not wheezing today . Diminished BS in all lung ashby. GASTROINTESTINAL: Abdomen soft markedly distended, tender to palpation. Incontinent of liquid dark brown stool remains tympanic to percussion No guarding or rebound tenderness. GENITOURINARY: Han catheter in place with brown urine in the bag. MUSCULOSKELETAL: Extremities without clubbing, cyanosis, or edema. No joint tenderness, effusion, or edema noted. No calf tenderness. NEUROLOGICAL: Awake and alert. Disoriented. Non focal. PSYCHIATRIC: confused and somewhat agitated PIV with no e/o infection. Assessment & Plan Remarks Severe sepsis with leukocytosis with elevated white count of 43.9, acidosis with bicarbonate 14.5, acute renal failure with creatinine of 2.34, hypotension and tachycardia and C. difficile positive diarrhea/colitis -CT of abdomen and pelvis revealed pancolitis Leukemoid reaction due to severe Cdiff. Non-anion gap metabolic acidosis suspect secondary to bicarb loss from ongoing diarrhea -on bicarb gtt Acute renal failure suspect secondary to hypotension and IV contrast -mucjh improved Acute metabolic encephalopathy secondary to active infection and dehydration MRSA urine, Leukocytosis - mproved ? UTI ? aspiration PNA - pt apparently shows s/o aspiration 2/2 dysphagia RECS: Continue on oral vancomycin and lactobacillus Continue Vanco enema for now. Reassess in am continuing need based on stool volume. Continue Dificid DC IV Flagyl DC IV Vanco DC IV Micafungin Follow cultures Follow clinically. CXR reviewed by me. dw RN Dw Palliative care team. Pt now No code DNR. to cover for me 10/24/2017 to 10/26/2017. Purvi Grimaldo MD October 23, 2017 13:42
[2017-10-23] MEDS ORDERED: POTASSIUM CHLORIDE 20 MEQ CONTROLLED RELEASE TAB PO ONE (16:00)
[2017-10-23 17:24] LABS: HEMATOCRIT 29.2 % (39.0-51.0); HEMOGLOBIN 9.6 GM/DL (13.0-17.0)
[2017-10-23] MEDS: ATORVASTATIN 20 MG TAB PO SCH (22:09)
[2017-10-23] MEDS: MONTELUKAST SODIUM 10 MG TAB PO SCH (22:09)
[2017-10-23 23:00] LABS: HEMATOCRIT 27.6 % (39.0-51.0); HEMOGLOBIN 9.2 GM/DL (13.0-17.0)
[2017-10-24] VITALS (16 sets, daily range): BP systolic 120–174; BP diastolic 58–80; PULSE 76–110; RESP 18–28; TEMP 97.4–98.7; O2SAT 79–100
[2017-10-24 04:52] LABS: HEMATOCRIT 25.7 % (39.0-51.0); HEMOGLOBIN 8.7 GM/DL (13.0-17.0); MEAN CELL VOLUME 93.7 FL (80.0-100.0); MEAN CORPUSCULAR HEMOGLOBIN 31.5 PG (27.0-34.0); MEAN CORPUSCULAR HGB CONC 33.6 % (32.0-36.0); MEAN PLATELET VOLUME 7.6 FL (7.0-11.0); PLATELET COUNT 295 TH/MM3 (150-450); RED BLOOD COUNT 2.75 MIL/MM3 (4.50-5.90); RED CELL DISTRIBUTION WIDTH 14.1 % (11.6-17.2); WHITE BLOOD COUNT 26.4 TH/MM3 (4.0-11.0)
[2017-10-24] MEDS: VANCOMYCIN INJ 500 MG in SODIUM CHLORIDE 0.9% IRR BTL 250 ML IRRIGATION SCH ×4 (05:05→17:06)
[2017-10-24 05:18] LABS: BICARBONATE 24.3 MEQ/L (21.0-32.0); CALCIUM 7.1 MG/DL (8.5-10.1); CREATININE 0.78 MG/DL (0.60-1.30)
[2017-10-24 05:35] LABS: CALCIUM-PROTEIN CORRECTED 8.4 MG/DL (8.5-10.1); TOTAL PROTEIN 4.7 GM/DL (6.4-8.2)
[2017-10-24] MEDS: FREE WATER G-TUBE SCH ×4 (06:00→17:06)
[2017-10-24] MEDS: METOPROLOL TARTRATE 25 MG TAB PO SCH ×4 (06:04→17:06)
[2017-10-24] MEDS: AZTREONAM INJ 1,000 MG in SODIUM CHLORIDE 0.9% INJ 100 ML IV SCH ×2 (06:04→14:59)
[2017-10-24] MEDS: LEVOTHYROXINE SODIUM 50 MCG TAB PO SCH (06:04)
[2017-10-24] MEDS: levETIRAcetam INJ 100 ML IV SCH ×2 (07:42→21:14)
[2017-10-24] MEDS: FERROUS SULFATE 325 MG (65 MG ELEMENTAL IRON) TAB PO SCH ×3 (07:55→17:19)
[2017-10-24] MEDS: carBAMazepine 200 MG TAB PO SCH ×2 (07:55→21:15)
[2017-10-24] MEDS: HEPARIN SODIUM - SQ 10,000 UNITS/ML VIAL SQ SCH ×2 (07:55→21:15)
[2017-10-24] MEDS: CLOPIDOGREL 75 MG TAB PO SCH (07:55)
[2017-10-24] MEDS: FIDAXOMICIN 200 MG TAB PO SCH ×2 (07:55→21:15)
[2017-10-24] MEDS: VANCOMYCIN 500 MG VIAL (FOR ORAL USE ONLY) PO SCH ×4 (07:56→21:15)
[2017-10-24] MEDS: FLUTICASONE PROPIONATE 50 MCG/ACT 16 GM NASAL SPRAY EACH NARE SCH (07:56)
[2017-10-24] MEDS: SODIUM CHLORIDE 0.9% FLUSH 10 ML FLUSH IV FLUSH SCH ×2 (07:56→21:14)
[2017-10-24] MEDS: PANTOPRAZOLE SOD 40 MG DELAYED RELEASE TAB PO SCH (07:56)
[2017-10-24] MEDS: FLUTICASONE 100 MCG/VILANTEROL 25 MCG INHALER INH SCH (07:56)
[2017-10-24] MEDS: LACTOBACILLUS ACIDOPHILUS TAB PO SCH ×3 (07:56→17:06)
[2017-10-24] MEDS: ACETAMINOPHEN 1000 MG/100 ML 100 ML IV PRN ×2 (08:09→17:07)
--- NOTE | 2017-10-24 08:50 | HHI.IDPN ---
Subjective Subjective Remarks is an 87-year-old male with a past medical history significant for dementia, arthritis, prostate cancer, HTN, HLD, TIA, COPD, GERD, seizures, presented to the ED after being sent from [facility] due to worsening altered mental status and diarrhea. Due to patient's severe dementia, history is obtained from review of electronic medical record. Patient was found to be in sepsis with white count 29.5, fever of 102.[address] scan of the abdomen and pelvis revealed pancolitis most pronounced involving the ascending colon. Urinalysis was significant for MRSA. C diff testing was positive. Patient was started on oral vancomycin. Patient's white count continued to trend upwards and he was started on oral Flagyl and his vancomycin dose was increased. His white count today is 43.9 with left shift and bandemia. He is also found to have acute renal failure with elevated creatinine of 2.34 nephrology was consulted. Patient is acidotic with bicarb of 14.5 and is currently on bicarb drip. Infectious disease consultation has been requested for evaluation and management of severe C. difficile infection and MRSA in the urine. Patient seen and examined. He is currently afebrile. Patient has been hypotensive today. Blood pressure has improved to 109/55 from 89/44 earlier this morning. He appears extremely dry on exam. He can be heard audibly wheezing. Discussed with the nursing staff who states his urine output has been extremely low. He was given IV fluid bolus and is on 125 cc of maintenance fluids. Patient has had 5 blackish green sticky bowel movements today of moderate volume. Patient has previous urine cultures with MRSA. He also has a history of ESBL E. coli in the urine. Notes reviewed Afebrile BP ok Still a lot of stool volume recorded last 24 hours WBC decreasing Creatinine back to normal NGT to suction No abdominal pain On nasal O2 Has MRSA in urine, but UA not that impressive Antibiotics Vanco oral Vanco enema Dificid Azactam Current Medications Medications (Trade) Dose Ordered Sig/Timbo Route Start Time Stop Time Status Last Admin (NS Flush) 2 ml UNSCH PRN IV FLUSH 10/17/17 14:15 (NS Flush) 2 ml BID IV FLUSH 10/17/17 21:00 10/24/17 07:56 (Narcan Inj) 0.4 mg UNSCH PRN IV PUSH 10/17/17 14:15 (Milk Of Magnesia Liq) 30 ml Q12H PRN PO 10/17/17 14:15 (Senokot) 17.2 mg Q12H PRN PO 10/17/17 14:15 (Dulcolax Supp) 10 mg DAILY PRN RECTAL 10/17/17 14:15 (Lactulose Liq) 30 ml DAILY PRN PO 10/17/17 14:15 (Zofran Odt) 4 mg Q6H PRN PO 10/17/17 15:00 (Lactinex) 1 tab TID PO 10/17/17 18:00 10/24/17 07:56 (Lipitor) 20 mg HS PO 10/17/17 21:00 10/23/17 22:09 (TEGretol) 200 mg BID PO 10/17/17 21:00 10/24/17 07:55 (Plavix) 75 mg DAILY PO 10/18/17 09:00 10/24/17 07:55 (Ferrous Sulfate) 325 mg TIDPC PO 10/17/17 18:30 10/24/17 07:55 (Breo Ellipta 100-25 Inh) 1 puff DAILY INH 10/18/17 09:00 10/24/17 07:56 (Synthroid) 50 mcg DAILY@0600 PO 10/18/17 06:00 10/24/17 06:04 (Singulair) 10 mg HS PO 10/17/17 21:00 10/23/17 22:09 (Protonix) 40 mg DAILY PO 10/18/17 09:00 10/24/17 07:56 (Inderal) 10 mg Q12HR PO 10/17/17 21:00 Future Hold 10/18/17 09:50 (Zoloft) 25 mg HS PO 10/17/17 21:00 Future Hold 10/18/17 20:29 (Flonase Iftikhar Spr) 1 spray DAILY EACH NARE 10/18/17 09:00 10/24/17 07:56 (Heparin Inj) 5,000 units Q12HR SQ 10/17/17 21:00 10/24/17 07:55 (Pill Splitter) 1 ea UNSCH PRN OTHER 10/17/17 16:30 (VANCOMYCIN for oral use only) 500 mg QID PO 10/19/17 18:00 10/24/17 07:56 (Dificid) 200 mg BID PO 10/19/17 21:00 10/29/17 09:01 10/24/17 07:55 (Albuterol Neb) 2.5 mg Q2HR NEB PRN NEB 10/19/17 19:00 10/21/17 11:50 Acetaminophen 100 ml @ 400 mls/hr Q8H PRN IV 10/19/17 19:00 10/24/17 08:09 Levetriacetam 100 ml @ 400 mls/hr Q12HR IV 10/19/17 21:00 10/24/17 07:42 ([facility]) Patient in critical care unit? Ass... Q361D .XX 10/19/17 22:30 10/19/17 22:30 (Chlorhexidine 2% Cloth) 3 pack UNSCH PRN TOPICAL 10/19/17 22:30 10/24/17 22:16 Vancomycin HCl 500 mg/Sodium Chloride 250 ml @ 0 mls/hr Q6HR IRRIGATION 10/20/17 13:00 10/24/17 05:05 Aztreonam 1000 mg/ Sodium Chloride 100 ml @ 200 mls/hr Q8H IV 10/20/17 23:00 10/24/17 06:04 (Brethine Inj) 1 mg UNSCH PRN SQ 10/20/17 23:45 (Lopressor Inj) 5 mg Q5M PRN IV PUSH 10/22/17 05:15 10/23/17 09:38 ([facility] Ordered Lab Info) SPECIFIC LAB TO BE ... ONCE ONCE .XX 10/24/17 11:45 10/24/17 11:46 Potassium Chloride 100 ml @ 50 mls/hr Q2H PRN IV 10/22/17 17:45 Potassium Chloride 100 ml @ 50 mls/hr Q2H PRN IV 10/22/17 17:45 (K-Lyte Cl Eff) 50 meq UNSCH PRN PO 10/22/17 17:45 Potassium Chloride 100 ml @ 25 mls/hr UNSCH PRN IV 10/22/17 17:45 Potassium Chloride 100 ml @ 50 mls/hr Q2H PRN IV 10/22/17 17:45 Magnesium Sulfate 4 gm/Sodium Chloride 100 ml @ 50 mls/hr UNSCH PRN IV 10/22/17 17:45 (Mag-Ox) 800 mg UNSCH PRN PO 10/22/17 17:45 Magnesium Sulfate 2 gm/Sodium Chloride 100 ml @ 50 mls/hr UNSCH PRN IV 10/22/17 17:45 (K-Phos) 2,000 mg Q4H PRN PO 10/22/17 17:45 Sodium Phosphate 30 mmol/Sodium Chloride 250 ml @ 42 mls/hr UNSCH PRN IV 10/22/17 17:45 (K-Phos) 2,000 mg UNSCH PRN PO/TUBE 10/22/17 17:45 Potassium Phosphate 30 mmol/ Sodium Chloride 260 ml @ 42 mls/hr UNSCH PRN IV 10/22/17 17:45 (Lopressor) 12.5 mg Q6HR PO 10/22/17 18:00 10/24/17 06:04 (Free Water) VOLUME: 300 ML Q6HR G-TUBE 10/23/17 12:00 10/24/17 06:00 also started on azacta, micafungin and given 1 dose of vanco iv Lines Line sites with no e.o infection Past Medical History Past Medical History Dementia COPD Hypertension Seizure disorder History of TIAs Hypertension Dyslipidemia Cardiovascular disease GERD Urinary incontinence Prostate cancer History of previous MRSA and ESBL E. coli in urine History of coagulase negative staph bacteremia Hypothyroidism Past Surgical History Percutaneous endoscopic gastrostomy placement in November 2014 status post removal Appendectomy Bilateral hip surgeries with hardware Left ear cancer surgery Bilateral cataracts Prostatectomy Right carotid endarterectomy Tonsillectomy Allergies: Coded Allergies: amoxicillin (Unverified Allergy, Severe, Shortness of Breath, 10/17/17) clavulanic acid (Unverified Allergy, Severe, Shortness of Breath, 10/17/17) imipramine (Unverified Allergy, Severe, SEIZURE, 10/17/17) primidone (Unverified Allergy, Severe, SEIZURE, 10/17/17) Sulfa (Sulfonamide Antibiotics) (Unverified Allergy, Unknown, Rash, ) Objective . Vital Signs Date Time Temp Pulse Resp B/P (MAP) Pulse Ox O2 Delivery O2 Flow Rate FiO2 10/24/17 08:05 100 Nasal Cannula 3.00 10/24/17 06:00 87 10/24/17 04:12 96 Nasal Cannula 3.00 10/24/17 04:00 97.9 89 24 136/64 (88) 96 10/24/17 04:00 89 10/24/17 02:00 88 10/24/17 00:26 100 Nasal Cannula 3.00 10/24/17 00:00 98.7 96 22 120/58 (78) 97 10/24/17 00:00 88 10/23/17 22:00 97 10/23/17 20:44 95 Nasal Cannula 3.00 10/23/17 20:00 98.4 94 24 149/67 (94) 98 10/23/17 18:00 97 10/23/17 16:00 99 10/23/17 16:00 98.7 99 23 141/66 (91) 97 10/23/17 14:00 92 10/23/17 12:00 99.6 99 31 152/105 (121) 97 10/23/17 12:00 99 10/23/17 10:00 103 10/23/17 10:00 93 . Laboratory Tests Test 10/22/17 10:42 10/22/17 15:57 10/22/17 21:30 10/23/17 04:15 Hemoglobin 10.3 GM/DL 10.3 GM/DL 9.1 GM/DL 9.3 GM/DL Hematocrit 30.8 % 30.8 % 25.9 % 28.6 % White Blood Count 36.8 TH/MM3 Red Blood Count 3.08 MIL/MM3 Mean Corpuscular Volume 92.6 FL Mean Corpuscular Hemoglobin 30.3 PG Mean Corpuscular Hemoglobin Concent 32.7 % Red Cell Distribution Width 14.3 % Platelet Count 290 TH/MM3 Mean Platelet Volume 8.0 FL Neutrophils (%) (Auto) 85.2 % Lymphocytes (%) (Auto) 2.7 % Monocytes (%) (Auto) 11.6 % Eosinophils (%) (Auto) 0.3 % Basophils (%) (Auto) 0.2 % Neutrophils # (Auto) 31.4 TH/MM3 Lymphocytes # (Auto) 1.0 TH/MM3 Monocytes # (Auto) 4.3 TH/MM3 Eosinophils # (Auto) 0.1 TH/MM3 Basophils # (Auto) 0.1 TH/MM3 CBC Comment AUTO DIFF Differential Total Cells Counted 100 Neutrophils % (Manual) 67 % Band Neutrophils % 19 % Lymphocytes % 6 % Monocytes % 6 % Neutrophils # (Manual) 32.4 TH/MM3 Myelocytes 2 % Differential Comment FINAL DIFF MANUAL Platelet Estimate NORMAL Platelet Morphology Comment NORMAL Test 10/23/17 11:27 10/23/17 17:00 10/23/17 22:35 10/24/17 04:31 Hemoglobin 9.9 GM/DL 9.6 GM/DL 9.2 GM/DL 8.7 GM/DL Hematocrit 30.1 % 29.2 % 27.6 % 25.7 % White Blood Count 26.4 TH/MM3 Red Blood Count 2.75 MIL/MM3 Mean Corpuscular Volume 93.7 FL Mean Corpuscular Hemoglobin 31.5 PG Mean Corpuscular Hemoglobin Concent 33.6 % Red Cell Distribution Width 14.1 % Platelet Count 295 TH/MM3 Mean Platelet Volume 7.6 FL Laboratory Tests Test 10/23/17 04:30 10/24/17 04:31 Blood Urea Nitrogen 27 MG/DL 22 MG/DL Creatinine 0.99 MG/DL 0.78 MG/DL Random Glucose 132 MG/DL 105 MG/DL Total Protein 5.1 GM/DL 4.7 GM/DL Albumin 1.7 GM/DL Calcium Level 6.8 MG/DL 7.1 MG/DL Phosphorus Level 2.5 MG/DL Magnesium Level 1.9 MG/DL Alkaline Phosphatase 58 U/L Aspartate Amino Transf (AST/SGOT) 34 U/L Alanine Aminotransferase (ALT/SGPT) 21 U/L Total Bilirubin 0.3 MG/DL Sodium Level 147 MEQ/L 144 MEQ/L Potassium Level 3.7 MEQ/L 3.5 MEQ/L Chloride Level 110 MEQ/L 109 MEQ/L Carbon Dioxide Level 27.4 MEQ/L 24.3 MEQ/L Anion Gap 10 MEQ/L 11 MEQ/L Estimat Glomerular Filtration Rate 72 ML/MIN 94 ML/MIN Protein Corrected Calcium 7.8 MG/DL 8.4 MG/DL Imaging Last Impressions Abdomen X-Ray 10/21/17 0000 Signed Impressions: Service Date/Time: Saturday, October 21, 2017 15:43 - CONCLUSION: Stable examination with mild diffuse gaseous distention of the small bowel consistent with adynamic ileus. Kwesi Humphreys MD Abdomen/Pelvis CT 10/19/172041 Signed Impressions: Service Date/Time: October 22:34 - CONCLUSION: 1. Pancolitis without obstruction, perforation, or abscess. 2. Small volume ascites. Manish Jenkins Jr., MD Chest X-Ray 10/19/17 1803 Signed Impressions: Service Date/Time: October 18:17 - CONCLUSION: No acute disease. Yung Green MD Renal Ultrasound 10/19/17 0000 Signed Impressions: Service Date/Time: October 15:24 - CONCLUSION: 1. Increased echogenicity of the renal parenchyma bilaterally. This can be seen with chronic medical renal disease. 2. No hydronephrosis. Keo Trevizo MD Head CT 10/17/17 1042 Signed Impressions: Service Date/Time: Tuesday, October 17, 2017 11:07 - CONCLUSION: 1. No acute intracranial abnormality or significant interval change. Kwesi Humphreys MD Physical Exam GENERAL: NAD. Awake. Able to follow simple commands. Confused. SKIN: No rashes, ecchymoses or lesions. Cool and dry. EYES: Pupils equal round and reactive. Extraocular motions intact. No scleral icterus. No injection or drainage. ENT: Nose without bleeding or purulent drainage. Throat without erythema, tonsillar hypertrophy or exudate. Uvula midline. Airway patent. Dry mucous membranes NECK: Trachea midline. No JVD or lymphadenopathy. Supple, nontender, no meningeal signs. CARDIOVASCULAR: Regular rate and rhythm without murmurs, gallops, or rubs. RESPIRATORY: not wheezing today . Diminished BS in all lung ashby. GASTROINTESTINAL: Abdomen distended, min tender. Incontinent of liquid dark brown stool. Remains tympanic to percussion No guarding or rebound tenderness. GENITOURINARY: Han catheter in place with brown urine in the bag. MUSCULOSKELETAL: Extremities without clubbing, cyanosis, or edema. No joint tenderness, effusion, or edema noted. No calf tenderness. NEUROLOGICAL: Awake and alert. Disoriented. Non focal. PSYCHIATRIC: confused and somewhat agitated PIV with no e/o infection. Assessment & Plan Remarks Severe sepsis with leukocytosis with elevated white count of 43.9, acidosis with bicarbonate 14.5, acute renal failure with creatinine of 2.34, hypotension and tachycardia and C. difficile positive diarrhea/colitis - CT of abdomen and pelvis revealed pancolitis - leukocytosis, improving Leukocytosis, due to severe Cdiff. Non-anion gap metabolic acidosis suspect secondary to bicarb loss from ongoing diarrhea -on bicarb gtt Acute renal failure suspect secondary to hypotension and IV contrast -mucjh improved Acute metabolic encephalopathy secondary to active infection and dehydration MRSA urine, but UA very mild pyuria ? aspiration PNA - pt apparently shows s/o aspiration 2/2 dysphagia RECS: Continue on oral vancomycin and lactobacillus Continue Vanco enema for now. Reassess in am continuing need based on stool volume. Continue Dificid Also on Azactam Follow cultures Monitor progress Natalee Rodriguez MD October 24, 2017 08:50
[2017-10-24] MEDS ORDERED: PHARMACY ORDERED LAB ONE (11:45)
--- NOTE | 2017-10-24 14:27 | HHI.PR ---
Subjective Remarks Critical Care Notes: This is an 87-year-old male. Date of admission 10/17/2017. Date of consultation 10/19/2017. Patient with many comorbidities including dementia disorder, TIAs, seizures, prostate cancer, COPD, gastroesophageal reflux disease , hypertension, dyslipidemia, esophageal strictures, left bundle branch block, ventricular arterial disease and atherosclerotic heart disease. History of pill esophagitis/esophageal strictures with history of PEG tube placement. Patient was admitted to the hospital service on 10/17 with diarrhea/abdominal pain. CT abdomen/pelvis revealed pancolitis. Patient originally treated with metronidazole Patient with worsening status with increasing creatinine, WBCs. Infectious disease nephrology consult. Abdomen more distended today and hypotensive with systolic blood pressures in the 80s on the floor. Received 2 L normal saline. Due to clinical status, infectious disease recommended ICU transfer. On evaluation of patient with abdomen firm but not surgical with no rigidity. CT abdomen/pelvis currently pending. Lactate and all laboratories pending at time of dictation. 10/20: T-max 99.3 persistent leukocytosis. Patient continues on sodium bicarbonate infusion. Palliative medicine has been consulted for defining goals of care. 10/21: Patient failed swallow exam 2. Overnight, unable to pass NG tube plan for gastroenterology to assist. WBC count continues to be elevated. Patient noted to have large amount of coffee-ground emesis this afternoon. KUB pending. Serial hemoglobin and hematocrits obtained. Healthcare proxy at bedside tentative plan for possible hospice initiation.. Nephrology following , sodium bicarbonate concentration increased. 10/22: Off vasopressors. clinically improving. HR controlled. GAIL improving. plan for EGD today. long discussion with nephew and medical decision maker: he wishes patient to be aggressive measures but DNR, which I think is appropriate given his severe dementia and multiple acute on chronic medical problems. Hospitalist notes: 10/23: GIB status post EGD, Followed by ID specialist with Diagnosis of Severe Sepsis with Leukocytosis, Acidosis, renal failure now improved, Hypotension and tachycardia C Diff colitis, Encephalopathy, MRSA urine, Aspiration Pneumonia, recommended to continue Vancomycin, Lactobacillus, Vancomycin enema, IV Flagyl, Dificid, continue Micafungin, Azactam following flood cultures, UA and Urine cultures, CXR. stable in his bedroom, discussed with nurse Miss Mena. 10/24: Seen in his bedroom discussed with nurse Miss Mena, continue management by ID due to Sepsis, continue with Diarrhea, has NG tube to suction in place and Rectal tube, today had possible GI bleeding, but continue with Stable hemoglobin, asked for H and H by GI specialist, to continue vancomycin Oral and Lactobacillus, Dificid , Azactam and follow blood cultures. Objective Vital Signs Date Time Temp Pulse Resp B/P (MAP) Pulse Ox O2 Delivery O2 Flow Rate FiO2 10/24/17 14:00 81 10/24/17 12:00 91 10/24/17 10:00 89 10/24/17 09:18 21 10/24/17 08:05 100 Nasal Cannula 3.00 10/24/17 08:00 97.7 98 28 170/77 (108) 79 10/24/17 08:00 98 10/24/17 06:00 87 10/24/17 04:12 96 Nasal Cannula 3.00 10/24/17 04:00 97.9 89 24 136/64 (88) 96 10/24/17 04:00 89 10/24/17 02:00 88 10/24/17 00:26 100 Nasal Cannula 3.00 10/24/17 00:00 98.7 96 22 120/58 (78) 97 10/24/17 00:00 88 10/23/17 22:00 97 10/23/17 20:44 95 Nasal Cannula 3.00 10/23/17 20:00 98.4 94 24 149/67 (94) 98 10/23/17 18:00 97 10/23/17 16:00 99 10/23/17 16:00 98.7 99 23 141/66 (91) 97 I/O 10/23/17 10/23/17 10/23/17 10/24/17 10/24/17 10/24/17 07:00 15:00 23:00 07:00 15:00 23:00 Intake Total 689.5 ml 350 ml 230 ml 200 ml Output Total 1000 ml 825 ml 950 ml Balance -1000 ml 689.5 ml -475 ml -720 ml 200 ml IV Total 689.5 ml 350 ml 230 ml 200 ml Output Urine Total 300 ml 325 ml 350 ml Stool Total 500 ml 500 ml 600 ml Gastric Drainage Total 200 ml Result Diagram: 10/24/17 04310/24/17430 Imaging Last Impressions Chest X-Ray 10/22/17 0000 Signed Impressions: Service Date/Time: Sunday, October 22, 2017 15:12 - CONCLUSION: 1. NGT beyond the GE junction. 2. Patchy left lower lobe airspace disease. 3. Right midlung zone atelectasis lie scarring. Kwesi Humphreys MD Abdomen X-Ray 10/21/17 0000 Signed Impressions: Service Date/Time: Saturday, October 21, 2017 15:43 - CONCLUSION: Stable examination with mild diffuse gaseous distention of the small bowel consistent with adynamic ileus. Kwesi Humphreys MD Abdomen/Pelvis CT 10/19/172 Signed Impressions: Service Date/Time: October 22:34 - CONCLUSION: 1. Pancolitis without obstruction, perforation, or abscess. 2. Small volume ascites. Manish Jenkins Jr., MD Renal Ultrasound 10/19/17 0000 Signed Impressions: Service Date/Time: October 15:24 - CONCLUSION: 1. Increased echogenicity of the renal parenchyma bilaterally. This can be seen with chronic medical renal disease. 2. No hydronephrosis. Keo Trevizo MD Head CT 10/17/17 1042 Signed Impressions: Service Date/Time: Tuesday, October 17, 2017 11:07 - CONCLUSION: 1. No acute intracranial abnormality or significant interval change. Kwesi Humphreys MD Procedures EGD due to inability to perform NG tube, abdominal distention, Ileus and GI bleed, NG tube placed recommended PPIs, NPO except medication. NGT to suction. 10/22/17 Other Results Laboratory Tests Test 10/17/17 10:44 10/17/17 10:50 10/17/17 13:00 10/17/17 20:11 Total Creatine Kinase 32 U/L Troponin I LESS THAN 0.02 NG/ML B-Type Natriuretic Peptide 214 PG/ML Thyroid Stimulating Hormone 3rd Gen 2.280 uIU/ML Carbamazepine (Tegretol) Level 10.6 MCG/ML Stool C. difficile Toxin (PCR) POSITIVE Stl C. difficile Toxin Epiderm 027 PRESUMPTIVE NEGATIVE Urine Color YELLOW Urine Turbidity HAZY Urine pH 5.0 Urine Specific [place] 1.019 Urine Protein 30 mg/dL Urine Glucose (UA) NEG mg/dL Urine Ketones NEG mg/dL Urine Occult Blood TRACE Urine Nitrite NEG Urine Bilirubin NEG Urine Urobilinogen LESS THAN 2.0 MG/DL Urine Leukocyte Esterase TRACE Urine RBC 6 /hpf Urine WBC 4 /hpf Urine Bacteria RARE /hpf Microscopic Urinalysis Comment CATH-CULTURE IND Levetiracetam (Keppra) Level 33.7 mcg/mL Test 10/19/17 07:43 10/19/17 20:05 10/19/17 22:00 10/19/17 22:45 25-Hydroxy Vitamin D Total 28.1 ng/ML Prothrombin Time 11.7 SEC Prothromb Time International Ratio 1.2 RATIO Activated Partial Thromboplast Time 31.2 SEC Fibrinogen 417 mg/dL Direct Bilirubin 0.1 MG/DL Indirect Bilirubin 0.2 MG/DL Ammonia 31 MCMOL/L Lactate Dehydrogenase 226 U/L Triglycerides Level 70 MG/DL Cholesterol Level 55 MG/DL LDL Cholesterol 16 MG/DL HDL Cholesterol 24.8 MG/DL Cholesterol/HDL Ratio 2.21 RATIO Amylase Level 67 U/L Lipase 47 U/L Random Cortisol 28.0 MCG/DL Nasal Screen MRSA (PCR) MRSA DETECTED Blood Gas Puncture Site RT BRACHIAL Blood Gas Patient Temperature 98.6 Blood Gas HCO3 15 mmol/L Blood Gas Base Excess -10.4 mmol/L Blood Gas Oxygen Saturation 95 % Arterial Blood pH 7.30 Arterial Blood Partial Pressure CO2 31 mmHg Arterial Blood Partial Pressure O2 112 mmHg Arterial Blood Oxygen Content 13.4 Vol % Arterial Blood Carboxyhemoglobin 0.5 % Arterial Blood Methemoglobin 1.9 % Blood Gas Hemoglobin 10.0 G/DL Oxygen Delivery Device NASAL CANNULA Blood Gas Liter Flow 3 L/M Test 10/20/17 05:43 10/21/17 04:13 10/22/17 04:10 10/23/17 04:15 Toxic Granulation 1+ Lactic Acid Level 2.0 mmol/L Palomo Cells 1+ Acanthocytes 1+ Keratocytes OCC Basophilic Stippling FAINT Ovalocytes 1+ Random Vancomycin Level 13.1 COMMENT Neutrophils (%) (Auto) 85.2 % Lymphocytes (%) (Auto) 2.7 % Monocytes (%) (Auto) 11.6 % Eosinophils (%) (Auto) 0.3 % Basophils (%) (Auto) 0.2 % Neutrophils # (Auto) 31.4 TH/MM3 Lymphocytes # (Auto) 1.0 TH/MM3 Monocytes # (Auto) 4.3 TH/MM3 Eosinophils # (Auto) 0.1 TH/MM3 Basophils # (Auto) 0.1 TH/MM3 CBC Comment AUTO DIFF Differential Total Cells Counted 100 Neutrophils % (Manual) 67 % Band Neutrophils % 19 % Lymphocytes % 6 % Monocytes % 6 % Neutrophils # (Manual) 32.4 TH/MM3 Myelocytes 2 % Differential Comment FINAL DIFF MANUAL Platelet Estimate NORMAL Platelet Morphology Comment NORMAL Test 10/23/17 04:30 10/24/17 04:31 10/24/17 12:00 Blood Urea Nitrogen 27 MG/DL 22 MG/DL Creatinine 0.99 MG/DL 0.78 MG/DL Random Glucose 132 MG/DL 105 MG/DL Total Protein 5.1 GM/DL 4.7 GM/DL Albumin 1.7 GM/DL Calcium Level 6.8 MG/DL 7.1 MG/DL Phosphorus Level 2.5 MG/DL Magnesium Level 1.9 MG/DL Alkaline Phosphatase 58 U/L Aspartate Amino Transf (AST/SGOT) 34 U/L Alanine Aminotransferase (ALT/SGPT) 21 U/L Total Bilirubin 0.3 MG/DL Sodium Level 147 MEQ/L 144 MEQ/L Potassium Level 3.7 MEQ/L 3.5 MEQ/L Chloride Level 110 MEQ/L 109 MEQ/L Carbon Dioxide Level 27.4 MEQ/L 24.3 MEQ/L White Blood Count 26.4 TH/MM3 Red Blood Count 2.75 MIL/MM3 Hemoglobin 8.7 GM/DL Hematocrit 25.7 % Mean Corpuscular Volume 93.7 FL Mean Corpuscular Hemoglobin 31.5 PG Mean Corpuscular Hemoglobin Concent 33.6 % Red Cell Distribution Width 14.1 % Platelet Count 295 TH/MM3 Mean Platelet Volume 7.6 FL Anion Gap 11 MEQ/L Estimat Glomerular Filtration Rate 94 ML/MIN Protein Corrected Calcium 8.4 MG/DL Vancomycin Level Trough 15.4 MCG/ML Objective Remarks GENERAL: No acute distress. SKIN: has multiple ecchymotic areas on legs and arms. HEAD: Atraumatic. Normocephalic. EYES: Pupils equal and round. No scleral icterus. No injection or drainage. ENT: No nasal bleeding or discharge. Mucous membranes pink and dry. NG tube in place at slow suction. NECK: Trachea midline. No JVD. CARDIOVASCULAR: Irregular rate and rhythm. RESPIRATORY: clear to auscultation bilateral. GASTROINTESTINAL: Abdomen s distended. rectal tube in place. MUSCULOSKELETAL: Extremities no clubbing, cyanosis has edema 3+ NEUROLOGICAL: Awake and alert. No obvious cranial nerve deficits. Medications and IVs Current Medications Medications (Trade) Dose Ordered Sig/Timbo Route Start Time Stop Time Status Last Admin (NS Flush) 2 ml UNSCH PRN IV FLUSH 10/17/17 14:15 (NS Flush) 2 ml BID IV FLUSH 10/17/17 21:00 10/24/17 07:56 (Narcan Inj) 0.4 mg UNSCH PRN IV PUSH 10/17/17 14:15 (Milk Of Magnesia Liq) 30 ml Q12H PRN PO 10/17/17 14:15 (Senokot) 17.2 mg Q12H PRN PO 10/17/17 14:15 (Dulcolax Supp) 10 mg DAILY PRN RECTAL 10/17/17 14:15 (Lactulose Liq) 30 ml DAILY PRN PO 10/17/17 14:15 (Zofran Odt) 4 mg Q6H PRN PO 10/17/17 15:00 (Lactinex) 1 tab TID PO 10/17/17 18:00 10/24/17 12:19 (Lipitor) 20 mg HS PO 10/17/17 21:00 10/23/17 22:09 (TEGretol) 200 mg BID PO 10/17/17 21:00 10/24/17 07:55 (Plavix) 75 mg DAILY PO 10/18/17 09:00 10/24/17 07:55 (Ferrous Sulfate) 325 mg TIDPC PO 10/17/17 18:30 10/24/17 13:30 (Breo Ellipta 100-25 Inh) 1 puff DAILY INH 10/18/17 09:00 10/24/17 07:56 (Synthroid) 50 mcg DAILY@0600 PO 10/18/17 06:00 10/24/17 06:04 (Singulair) 10 mg HS PO 10/17/17 21:00 10/23/17 22:09 (Protonix) 40 mg DAILY PO 10/18/17 09:00 10/24/17 07:56 (Inderal) 10 mg Q12HR PO 10/17/17 21:00 Future Hold 10/18/17 09:50 (Zoloft) 25 mg HS PO 10/17/17 21:00 Future Hold 10/18/17 20:29 (Flonase Iftikhar Spr) 1 spray DAILY EACH NARE 10/18/17 09:00 10/24/17 07:56 (Heparin Inj) 5,000 units Q12HR SQ 10/17/17 21:00 10/24/17 07:55 (Pill Splitter) 1 ea UNSCH PRN OTHER 10/17/17 16:30 (VANCOMYCIN for oral use only) 500 mg QID PO 10/19/17 18:00 10/24/17 13:00 (Dificid) 200 mg BID PO 10/19/17 21:00 10/29/17 09:01 10/24/17 07:55 (Albuterol Neb) 2.5 mg Q2HR NEB PRN NEB 10/19/17 19:00 10/21/17 11:50 Acetaminophen 100 ml @ 400 mls/hr Q8H PRN IV 10/19/17 19:00 10/24/17 08:09 Levetriacetam 100 ml @ 400 mls/hr Q12HR IV 10/19/17 21:00 10/24/17 07:42 ([facility] Nursing Information) Patient in critical care unit? Ass... [id number] .XX 10/19/17 22:30 10/19/17 22:30 (Chlorhexidine 2% Cloth) 3 pack UNSCH PRN TOPICAL 10/19/17 22:30 10/24/17 22:16 Vancomycin HCl 500 mg/Sodium Chloride 250 ml @ 0 mls/hr Q6HR IRRIGATION 10/20/17 13:00 10/24/17 12:00 Aztreonam 1000 mg/ Sodium Chloride 100 ml @ 200 mls/hr Q8H IV 10/20/17 23:00 10/24/17 06:04 (Brethine Inj) 1 mg UNSCH PRN SQ 10/20/17 23:45 (Lopressor Inj) 5 mg Q5M PRN IV PUSH 10/22/17 05:15 10/23/17 09:38 Potassium Chloride 100 ml @ 50 mls/hr Q2H PRN IV 10/22/17 17:45 Potassium Chloride 100 ml @ 50 mls/hr Q2H PRN IV 10/22/17 17:45 (K-Lyte Cl Eff) 50 meq UNSCH PRN PO 10/22/17 17:45 Potassium Chloride 100 ml @ 25 mls/hr UNSCH PRN IV 10/22/17 17:45 Potassium Chloride 100 ml @ 50 mls/hr Q2H PRN IV 10/22/17 17:45 Magnesium Sulfate 4 gm/Sodium Chloride 100 ml @ 50 mls/hr UNSCH PRN IV 10/22/17 17:45 (Mag-Ox) 800 mg UNSCH PRN PO 10/22/17 17:45 Magnesium Sulfate 2 gm/Sodium Chloride 100 ml @ 50 mls/hr UNSCH PRN IV 10/22/17 17:45 (K-Phos) 2,000 mg Q4H PRN PO 10/22/17 17:45 Sodium Phosphate 30 mmol/Sodium Chloride 250 ml @ 42 mls/hr UNSCH PRN IV 10/22/17 17:45 (K-Phos) 2,000 mg UNSCH PRN PO/TUBE 10/22/17 17:45 Potassium Phosphate 30 mmol/ Sodium Chloride 260 ml @ 42 mls/hr UNSCH PRN IV 10/22/17 17:45 (Lopressor) 12.5 mg Q6HR PO 10/22/17 18:00 10/24/17 12:19 (Free Water) VOLUME: 300 ML Q6HR G-TUBE 10/23/17 12:00 10/24/17 12:00 A/P Assessment and Plan 87 y/o Male with Severe Dementia, admitted with C Diff Colitis, Severe sepsis, acute kidney Injury, he will need clinical laboratory assistant Rehabilitation at this moment DNR but continue with Aggressive goals. 1. Severe Sepsis with Leukocytosis, Acidosis, renal failure now improved, Hypotension and tachycardia C Diff colitis, Encephalopathy, MRSA urine, Aspiration Pneumonia, recommended to continue Vancomycin, Lactobacillus, Vancomycin enema, Dificid, Azactam following flood cultures, UA and Urine cultures, CXR. 2. Hypertension/Hyperlipidemia/Right bundle branch block/PAD/Atherosclerotic vascular disease Echocardiogram 2017 revealed ejection fraction of 55-60%. No regional wall motion abnormality. Mild TR. ON hold Lisinopril and Propranolol at this time on Atorvastatin, Plavix 75 mg daily. 3. COPD continue Nasal Cannula keep Oxygen saturation 92% or over, Bronchodilator, Mucolytics and Incentive spirometry. 4. GERD/Esophageal stricture/Pill Dysphagia/PEG tube placement status post removal/Nausea and vomit CT abdomen/pelvis on admission revealed pancolitis including the ascending colon. multiple attempts for NG tube placement, PPI, GI consult for NG tube placement EGD 5. Prostate Cancer History status post TURP 6. Hypothyroidism to continue Hormonal replacement 7. Acute Kidney Injury Improved Nephrology specialist following. 8. Anemia 9. C Diff Colitis on Fixadomicin 200 mg BID for 10 days, Vancomycin 500 mg by mouth four times a day, Lactobacillus per ID. 10. 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 There is compensatory enlargement of the posterior horns of the lateral ventricles stable from prior exam Continue Levetiracetam 500 mg by mouth three times a day, and Carbamazepine 200 mg by mouth BID, on hold Gabapentin and Sertraline. to resume once mentation improves. PT evaluate and treat Prophylaxis GI-pantoprazole -DVT -SCD/heparin subcu Discharge Planning Once cleared by specialists. Mirza Celeste MD October 24, 2017 14:27
--- NOTE | 2017-10-24 15:22 | HHI.GIFU ---
Subjective Remarks Pt pleasant but confused NGT to LIWS with brown colored output Dignishield to collection bag with liquid green stool (Masha Joy) Objective Vitals I&O Vital Signs Date Time Temp Pulse Resp B/P (MAP) Pulse Ox O2 Delivery O2 Flow Rate FiO2 10/24/17 14:00 81 10/24/17 12:00 97.4 91 21 174/80 (111) 98 10/24/17 12:00 91 10/24/17 10:00 89 10/24/17 09:18 21 10/24/17 08:05 100 Nasal Cannula 3.00 10/24/17 08:00 97.7 98 28 170/77 (108) 79 10/24/17 08:00 98 10/24/17 06:00 87 10/24/17 04:12 96 Nasal Cannula 3.00 10/24/17 04:00 97.9 89 24 136/64 (88) 96 10/24/17 04:00 89 10/24/17 02:00 88 10/24/17 00:26 100 Nasal Cannula 3.00 10/24/17 00:00 98.7 96 22 120/58 (78) 97 10/24/17 00:00 88 10/23/17 22:00 97 10/23/17 20:44 95 Nasal Cannula 3.00 10/23/17 20:00 98.4 94 24 149/67 (94) 98 10/23/17 18:00 97 10/23/17 16:00 99 10/23/17 16:00 98.7 99 23 141/66 (91) 97 I/O 10/23/17 10/23/17 10/23/17 10/24/17 10/24/17 10/24/17 07:00 15:00 23:00 07:00 15:00 23:00 Intake Total 689.5 ml 350 ml 230 ml 700 ml Output Total 1000 ml 825 ml 950 ml Balance -1000 ml 689.5 ml -475 ml -720 ml 700 ml IV Total 689.5 ml 350 ml 230 ml 700 ml Output Urine Total 300 ml 325 ml 350 ml Stool Total 500 ml 500 ml 600 ml Gastric Drainage Total 200 ml Laboratory Laboratory Tests Test 10/23/17 17:00 10/23/17 22:35 10/24/17 04:31 10/24/17 12:00 Hemoglobin 9.6 9.2 8.7 Hematocrit 29.2 27.6 25.7 White Blood Count 26.4 Red Blood Count 2.75 Mean Corpuscular Volume 93.7 Mean Corpuscular Hemoglobin 31.5 Mean Corpuscular Hemoglobin Concent 33.6 Red Cell Distribution Width 14.1 Platelet Count 295 Mean Platelet Volume 7.6 Blood Urea Nitrogen 22 Creatinine 0.78 Random Glucose 105 Total Protein 4.7 Calcium Level 7.1 Sodium Level 144 Potassium Level 3.5 Chloride Level 109 Carbon Dioxide Level 24.3 Anion Gap 11 Estimat Glomerular Filtration Rate 94 Protein Corrected Calcium 8.4 Vancomycin Level Trough 15.4 Date/Time Source Procedure Growth Status 10/20/17 21:09 Blood Peripheral Aerobic Blood Culture - Preliminary NO GROWTH IN 4 DAYS Resulted 10/20/17 21:09 Blood Peripheral Anaerobic Blood Culture - Preliminary NO GROWTH IN 4 DAYS Resulted 10/17/17 10:50 Stool Stool Stool Occult Blood (JONNA) - Final HEMOCCULT NEGATIVE Complete 10/17/17 13:00 Urine Catheterized Urine Urine Culture - Final S. Aureus Mrsa Complete Imaging Last Impressions Chest X-Ray 10/22/17 0000 Signed Impressions: Service Date/Time: Sunday, October 22, 2017 15:12 - CONCLUSION: 1. NGT beyond the GE junction. 2. Patchy left lower lobe airspace disease. 3. Right midlung zone atelectasis lie scarring. Kwesi Humphreys MD Abdomen X-Ray 10/21/17 0000 Signed Impressions: Service Date/Time: Saturday, October 21, 2017 15:43 - CONCLUSION: Stable examination with mild diffuse gaseous distention of the small bowel consistent with adynamic ileus. Kwesi Humphreys MD Abdomen/Pelvis CT 10/19/172041 Signed Impressions: Service Date/Time: October 22:34 - CONCLUSION: 1. Pancolitis without obstruction, perforation, or abscess. 2. Small volume ascites. Manish Jenkins Jr., MD Renal Ultrasound 10/19/17 0000 Signed Impressions: Service Date/Time: October 15:24 - CONCLUSION: 1. Increased echogenicity of the renal parenchyma bilaterally. This can be seen with chronic medical renal disease. 2. No hydronephrosis. Keo Trevizo MD Head CT 10/17/17 1042 Signed Impressions: Service Date/Time: Tuesday, October 17, 2017 11:07 - CONCLUSION: 1. No acute intracranial abnormality or significant interval change. Kwesi Humphreys MD Physical Exam HEENT: Normocephalic; atraumatic CHEST: Even/unlabored CARDIAC: Irregularly irregular ABDOMEN: Distended, soft, nontender, bowel sounds active EXTREMITIES: Generalized edema SKIN: Normal; no rash; no jaundice. EMERGENCY VEHICLE DISPATCHER: Awake, confused (Masha Joy) Assessment and Plan Plan Assessment: - Coffee ground emesis- one episode earlier today H/H has been fairly stable since admission. Last EGD in Jul [address] Guillaume dilatation (Jul 2017) --> Z line was located 36 cm from the incisors. There was a short stricture in the distal esophagus, multiple biopsies performed, stricture dilated using a 16 mm, mild antral gastropathy, normal duodenal mucosa in the entire examined duodenum, hiatal hernia. Pathology (gastric body and antral mucosa) mild chronic nonspecific antral gastritis negative for intestinal metaplasia and dysplasia (gastric mucosal tissue) severe chronic inflammatory changes negative for intestinal metaplasia and dysplasia, clinically stricture. Per RN multiple attempts at NG tube has been unsuccessful - Dysphagia- History of esophageal stricture as noted above, per POA at bedside pt normally receives relief of symptoms for about a year after dilatation. Per RN has failed swallow eval. Pt previously had G-tube in 2014, has since been removed - C. Diff colitis CT abdomen and pelvis reveals pancolitis ID following- Dificid, Vanco, Flagyl Hypotension- currently BP stable- Jere on hold EGD (10/22) --> 400 mL of gastric juice suctioned, NGT placed- placement documented endoscopically. Hiatal hernia (10/24) Still having significant output from NGT, per RN she has noticed some BRB in tubing, looks like brown colored output in suction canister. Continued liquid green stool, pt has Dignishield. Abdomen remains distended but soft. Plan: NGT to LIWS Monitor output ID following- abx Vanco, Flagyl, Dificid Repeat H/H now to assess for report of blood in NG tube Supportive care Further recommendations to follow based on clinical course Pt has been seen and examined by myself and Dr. Padron and this note is on his behalf (Masha Joy) Physician Comments Patient seen and examined Agree with above Continue with current supportive care Monitor labs Blood noted in NG tube most likely due to NG tube suction trauma no significant bleeding at this point patient stable hemodynamically and lab ureña Would start tube feeds slowly and see how he responds (Igor Padron MD) Masha Joy October 24, 2017 15:22 Igor Padron MD October 24, 2017 21:11
[2017-10-24 15:35] LABS: HEMATOCRIT 26.1 % (39.0-51.0); HEMOGLOBIN 8.5 GM/DL (13.0-17.0)
[2017-10-24] MEDS: MONTELUKAST SODIUM 10 MG TAB PO SCH (21:15)
[2017-10-24] MEDS: ATORVASTATIN 20 MG TAB PO SCH (21:15)
[2017-10-25] VITALS (14 sets, daily range): BP systolic 120–168; BP diastolic 58–67; PULSE 71–100; RESP 18–24; TEMP 98.5–99; O2SAT 95–99
[2017-10-25 04:28] LABS: HEMATOCRIT 24.8 % (39.0-51.0); HEMOGLOBIN 8.3 GM/DL (13.0-17.0); MEAN CELL VOLUME 92.2 FL (80.0-100.0); MEAN CORPUSCULAR HEMOGLOBIN 30.9 PG (27.0-34.0); MEAN CORPUSCULAR HGB CONC 33.5 % (32.0-36.0); MEAN PLATELET VOLUME 7.9 FL (7.0-11.0); PLATELET COUNT 320 TH/MM3 (150-450); RED BLOOD COUNT 2.69 MIL/MM3 (4.50-5.90); RED CELL DISTRIBUTION WIDTH 14.3 % (11.6-17.2); WHITE BLOOD COUNT 24.8 TH/MM3 (4.0-11.0)
[2017-10-25 04:52] LABS: BICARBONATE 23.7 MEQ/L (21.0-32.0); CALCIUM 7.2 MG/DL (8.5-10.1); CREATININE 0.62 MG/DL (0.60-1.30)
[2017-10-25 05:08] LABS: CALCIUM-PROTEIN CORRECTED 8.4 MG/DL (8.5-10.1); TOTAL PROTEIN 4.9 GM/DL (6.4-8.2)
[2017-10-25] MEDS: VANCOMYCIN INJ 500 MG in SODIUM CHLORIDE 0.9% IRR BTL 250 ML IRRIGATION SCH ×2 (05:58→06:01)
[2017-10-25] MEDS: METOPROLOL TARTRATE 25 MG TAB PO SCH ×4 (05:59→17:06)
[2017-10-25] MEDS: AZTREONAM INJ 1,000 MG in SODIUM CHLORIDE 0.9% INJ 100 ML IV SCH ×2 (06:00→06:02)
[2017-10-25] MEDS: FREE WATER G-TUBE SCH ×4 (06:00→17:06)
[2017-10-25] MEDS: LEVOTHYROXINE SODIUM 50 MCG TAB PO SCH (06:01)
[2017-10-25] MEDS: CLOPIDOGREL 75 MG TAB PO SCH (08:14)
[2017-10-25] MEDS: HEPARIN SODIUM - SQ 10,000 UNITS/ML VIAL SQ SCH ×2 (08:14→21:00)
[2017-10-25] MEDS: LACTOBACILLUS ACIDOPHILUS TAB PO SCH ×3 (08:14→17:05)
[2017-10-25] MEDS: levETIRAcetam INJ 100 ML IV SCH ×2 (08:15→22:19)
[2017-10-25] MEDS: FERROUS SULFATE 325 MG (65 MG ELEMENTAL IRON) TAB PO SCH ×3 (08:15→17:07)
[2017-10-25] MEDS: carBAMazepine 200 MG TAB PO SCH ×2 (08:15→21:00)
[2017-10-25] MEDS: FIDAXOMICIN 200 MG TAB PO SCH ×2 (08:15→21:00)
[2017-10-25] MEDS: SODIUM CHLORIDE 0.9% FLUSH 10 ML FLUSH IV FLUSH SCH ×2 (08:16→22:19)
[2017-10-25] MEDS: FLUTICASONE 100 MCG/VILANTEROL 25 MCG INHALER INH SCH (08:17)
[2017-10-25] MEDS: FLUTICASONE PROPIONATE 50 MCG/ACT 16 GM NASAL SPRAY EACH NARE SCH (08:17)
[2017-10-25] MEDS: PANTOPRAZOLE SOD 40 MG DELAYED RELEASE TAB PO SCH (08:18)
[2017-10-25] MEDS: VANCOMYCIN 500 MG VIAL (FOR ORAL USE ONLY) PO SCH ×4 (08:18→21:00)
--- NOTE | 2017-10-25 09:39 | HHI.IDPN ---
Subjective Subjective Remarks is an 87-year-old male with a past medical history significant for dementia, arthritis, prostate cancer, HTN, HLD, TIA, COPD, GERD, seizures, presented to the ED after being sent from [facility] due to worsening altered mental status and diarrhea. Due to patient's severe dementia, history is obtained from review of electronic medical record. Patient was found to be in sepsis with white count 29.5, fever of 102.[address] scan of the abdomen and pelvis revealed pancolitis most pronounced involving the ascending colon. Urinalysis was significant for MRSA. C diff testing was positive. Patient was started on oral vancomycin. Patient's white count continued to trend upwards and he was started on oral Flagyl and his vancomycin dose was increased. His white count today is 43.9 with left shift and bandemia. He is also found to have acute renal failure with elevated creatinine of 2.34 nephrology was consulted. Patient is acidotic with bicarb of 14.5 and is currently on bicarb drip. Infectious disease consultation has been requested for evaluation and management of severe C. difficile infection and MRSA in the urine. Patient seen and examined. He is currently afebrile. Patient has been hypotensive today. Blood pressure has improved to 109/55 from 89/44 earlier this morning. He appears extremely dry on exam. He can be heard audibly wheezing. Discussed with the nursing staff who states his urine output has been extremely low. He was given IV fluid bolus and is on 125 cc of maintenance fluids. Patient has had 5 blackish green sticky bowel movements today of moderate volume. Patient has previous urine cultures with MRSA. He also has a history of ESBL E. coli in the urine. Notes reviewed D/W RN Temps low grade BP ok Stool volume lesser WBC decreasing Creatinine back to normal NGT to suction No abdominal pain On nasal O2 Has MRSA in urine, but UA not that impressive Antibiotics Vanco oral Vanco enema Dificid Azactam Current Medications Medications (Trade) Dose Ordered Sig/Timbo Route Start Time Stop Time Status Last Admin (NS Flush) 2 ml UNSCH PRN IV FLUSH 10/17/17 14:15 (NS Flush) 2 ml BID IV FLUSH 10/17/17 21:00 10/25/17 08:16 (Narcan Inj) 0.4 mg UNSCH PRN IV PUSH 10/17/17 14:15 (Milk Of Magnesia Liq) 30 ml Q12H PRN PO 10/17/17 14:15 (Senokot) 17.2 mg Q12H PRN PO 10/17/17 14:15 (Dulcolax Supp) 10 mg DAILY PRN RECTAL 10/17/17 14:15 (Lactulose Liq) 30 ml DAILY PRN PO 10/17/17 14:15 (Zofran Odt) 4 mg Q6H PRN PO 10/17/17 15:00 (Lactinex) 1 tab TID PO 10/17/17 18:00 10/25/17 08:14 (Lipitor) 20 mg HS PO 10/17/17 21:00 10/24/17 21:15 (TEGretol) 200 mg BID PO 10/17/17 21:00 10/25/17 08:15 (Plavix) 75 mg DAILY PO 10/18/17 09:00 10/25/17 08:14 (Ferrous Sulfate) 325 mg TIDPC PO 10/17/17 18:30 10/25/17 08:15 (Breo Ellipta 100-25 Inh) 1 puff DAILY INH 10/18/17 09:00 10/25/17 08:17 (Synthroid) 50 mcg DAILY@0600 PO 10/18/17 06:00 10/25/17 06:01 (Singulair) 10 mg HS PO 10/17/17 21:00 10/24/17 21:15 (Protonix) 40 mg DAILY PO 10/18/17 09:00 10/25/17 08:18 (Inderal) 10 mg Q12HR PO 10/17/17 21:00 Future Hold 10/18/17 09:50 (Zoloft) 25 mg HS PO 10/17/17 21:00 Future Hold 10/18/17 20:29 (Flonase Iftikhar Spr) 1 spray DAILY EACH NARE 10/18/17 09:00 10/24/17 07:56 (Heparin Inj) 5,000 units Q12HR SQ 10/17/17 21:00 10/25/17 08:14 (Pill Splitter) 1 ea UNSCH PRN OTHER 10/17/17 16:30 (VANCOMYCIN for oral use only) 500 mg QID PO 10/19/17 18:00 10/25/17 08:18 (Dificid) 200 mg BID PO 10/19/17 21:00 10/29/17 09:01 10/25/17 08:15 (Albuterol Neb) 2.5 mg Q2HR NEB PRN NEB 10/19/17 19:00 10/21/17 11:50 Acetaminophen 100 ml @ 400 mls/hr Q8H PRN IV 10/19/17 19:00 10/24/17 17:07 Levetriacetam 100 ml @ 400 mls/hr Q12HR IV 10/19/17 21:00 10/25/17 08:15 ([facility] [place] [facility]) Patient in critical care unit? Ass... [id number] .XX 10/19/17 22:30 10/19/17 22:30 Vancomycin HCl 500 mg/Sodium Chloride 250 ml @ 0 mls/hr Q6HR IRRIGATION 10/20/17 13:00 10/25/17 06:01 Aztreonam 1000 mg/ Sodium Chloride 100 ml @ 200 mls/hr Q8H IV 10/20/17 23:00 10/25/17 06:02 (Brethine Inj) 1 mg UNSCH PRN SQ 10/20/17 23:45 (Lopressor Inj) 5 mg Q5M PRN IV PUSH 10/22/17 05:15 10/23/17 09:38 Potassium Chloride 100 ml @ 50 mls/hr Q2H PRN IV 10/22/17 17:45 Potassium Chloride 100 ml @ 50 mls/hr Q2H PRN IV 10/22/17 17:45 (K-Lyte Cl Eff) 50 meq UNSCH PRN PO 10/22/17 17:45 Potassium Chloride 100 ml @ 25 mls/hr UNSCH PRN IV 10/22/17 17:45 Potassium Chloride 100 ml @ 50 mls/hr Q2H PRN IV 10/22/17 17:45 Magnesium Sulfate 4 gm/Sodium Chloride 100 ml @ 50 mls/hr UNSCH PRN IV 10/22/17 17:45 (Mag-Ox) 800 mg UNSCH PRN PO 10/22/17 17:45 Magnesium Sulfate 2 gm/Sodium Chloride 100 ml @ 50 mls/hr UNSCH PRN IV 10/22/17 17:45 (K-Phos) 2,000 mg Q4H PRN PO 10/22/17 17:45 Sodium Phosphate 30 mmol/Sodium Chloride 250 ml @ 42 mls/hr UNSCH PRN IV 10/22/17 17:45 (K-Phos) 2,000 mg UNSCH PRN PO/TUBE 10/22/17 17:45 Potassium Phosphate 30 mmol/ Sodium Chloride 260 ml @ 42 mls/hr UNSCH PRN IV 10/22/17 17:45 (Lopressor) 12.5 mg Q6HR PO 10/22/17 18:00 10/25/17 06:01 (Free Water) VOLUME: 300 ML Q6HR G-TUBE 10/23/17 12:00 10/25/17 06:00 Lines Line sites with no e.o infection Past Medical History Past Medical History Dementia COPD Hypertension Seizure disorder History of TIAs Hypertension Dyslipidemia Cardiovascular disease GERD Urinary incontinence Prostate cancer History of previous MRSA and ESBL E. coli in urine History of coagulase negative staph bacteremia Hypothyroidism Past Surgical History Percutaneous endoscopic gastrostomy placement in November 2014 status post removal Appendectomy Bilateral hip surgeries with hardware Left ear cancer surgery Bilateral cataracts Prostatectomy Right carotid endarterectomy Tonsillectomy Allergies: Coded Allergies: amoxicillin (Unverified Allergy, Severe, Shortness of Breath, 10/17/17) clavulanic acid (Unverified Allergy, Severe, Shortness of Breath, 10/17/17) imipramine (Unverified Allergy, Severe, SEIZURE, 10/17/17) primidone (Unverified Allergy, Severe, SEIZURE, 10/17/17) Sulfa (Sulfonamide Antibiotics) (Unverified Allergy, Unknown, Rash, ) Objective . Vital Signs Date Time Temp Pulse Resp B/P (MAP) Pulse Ox O2 Delivery O2 Flow Rate FiO2 10/25/17 08:00 99.0 71 22 131/60 (83) 99 10/25/17 08:00 71 10/25/17 06:00 92 10/25/17 04:00 92 10/25/17 04:00 98.9 92 20 123/58 (79) 98 10/25/17 02:00 88 10/25/17 00:00 88 10/25/17 00:00 98.9 88 22 168/67 (100) 95 10/24/17 22:00 85 10/24/17 20:00 83 10/24/17 20:00 98.4 83 18 158/71 (100) 98 10/24/17 19:46 93 Nasal Cannula 3.00 10/24/17 18:00 76 10/24/17 17:40 20 10/24/17 16:00 97.9 90 22 146/67 (93) 100 10/24/17 16:00 90 10/24/17 14:00 81 10/24/17 12:00 97.4 91 21 174/80 (111) 98 10/24/17 12:00 91 10/24/17 10:00 89 . Laboratory Tests Test 10/23/17 11:27 10/23/17 17:00 10/23/17 22:35 10/24/17 04:31 Hemoglobin 9.9 GM/DL 9.6 GM/DL 9.2 GM/DL 8.7 GM/DL Hematocrit 30.1 % 29.2 % 27.6 % 25.7 % White Blood Count 26.4 TH/MM3 Red Blood Count 2.75 MIL/MM3 Mean Corpuscular Volume 93.7 FL Mean Corpuscular Hemoglobin 31.5 PG Mean Corpuscular Hemoglobin Concent 33.6 % Red Cell Distribution Width 14.1 % Platelet Count 295 TH/MM3 Mean Platelet Volume 7.6 FL Test 10/24/17 15:07 10/25/17 03:40 Hemoglobin 8.5 GM/DL 8.3 GM/DL Hematocrit 26.1 % 24.8 % White Blood Count 24.8 TH/MM3 Red Blood Count 2.69 MIL/MM3 Mean Corpuscular Volume 92.2 FL Mean Corpuscular Hemoglobin 30.9 PG Mean Corpuscular Hemoglobin Concent 33.5 % Red Cell Distribution Width 14.3 % Platelet Count 320 TH/MM3 Mean Platelet Volume 7.9 FL Laboratory Tests Test 10/24/17 04:31 10/25/17 03:40 Blood Urea Nitrogen 22 MG/DL 18 MG/DL Creatinine 0.78 MG/DL 0.62 MG/DL Random Glucose 105 MG/DL 72 MG/DL Total Protein 4.7 GM/DL 4.9 GM/DL Calcium Level 7.1 MG/DL 7.2 MG/DL Sodium Level 144 MEQ/L 146 MEQ/L Potassium Level 3.5 MEQ/L 3.5 MEQ/L Chloride Level 109 MEQ/L 110 MEQ/L Carbon Dioxide Level 24.3 MEQ/L 23.7 MEQ/L Anion Gap 11 MEQ/L 12 MEQ/L Estimat Glomerular Filtration Rate 94 ML/MIN 123 ML/MIN Protein Corrected Calcium 8.4 MG/DL 8.4 MG/DL Imaging Last Impressions Abdomen X-Ray 10/21/17 0000 Signed Impressions: Service Date/Time: Saturday, October 21, 2017 15:43 - CONCLUSION: Stable examination with mild diffuse gaseous distention of the small bowel consistent with adynamic ileus. Kwesi Humphreys MD Abdomen/Pelvis CT [id number] Signed Impressions: Service Date/Time: October 22:34 - CONCLUSION: 1. Pancolitis without obstruction, perforation, or abscess. 2. Small volume ascites. Manish Jenkins Jr., MD Chest X-Ray 10/19/[id number] Signed Impressions: Service Date/Time: October 18:17 - CONCLUSION: No acute disease. Yung Green MD Renal Ultrasound 10/19/17 0000 Signed Impressions: Service Date/Time: October 15:24 - CONCLUSION: 1. Increased echogenicity of the renal parenchyma bilaterally. This can be seen with chronic medical renal disease. 2. No hydronephrosis. Keo Trevizo MD Head CT 10/17/17 1042 Signed Impressions: Service Date/Time: Tuesday, October 17, 2017 11:07 - CONCLUSION: 1. No acute intracranial abnormality or significant interval change. Kwesi Humphreys MD Physical Exam GENERAL: NAD. Awakens easily. SKIN: No rashes, ecchymoses or lesions. Cool and dry. EYES: Pupils equal round and reactive. Extraocular motions intact. No scleral icterus. No injection or drainage. ENT: Nose without bleeding or purulent drainage. Throat without erythema, tonsillar hypertrophy or exudate. Uvula midline. Airway patent. Dry mucous membranes NECK: Trachea midline. No JVD or lymphadenopathy. Supple, nontender, no meningeal signs. CARDIOVASCULAR: Regular rate and rhythm without murmurs, gallops, or rubs. RESPIRATORY: not wheezing today . Diminished BS in all lung ashby. GASTROINTESTINAL: Abdomen distended, min tender. Incontinent of liquid dark brown stool. Remains tympanic to percussion No guarding or rebound tenderness. GENITOURINARY: Han catheter in place with dark yellow urine in the bag. MUSCULOSKELETAL: Extremities without clubbing, cyanosis, or edema. No calf tenderness. NEUROLOGICAL: Awakens easily. . Disoriented. Non focal. PSYCHIATRIC: calm PIV with no e/o infection. Assessment & Plan Remarks Severe sepsis with leukocytosis with elevated white count of 43.9, acidosis with bicarbonate 14.5, acute renal failure with creatinine of 2.34, hypotension and tachycardia and C. difficile positive diarrhea/colitis - CT of abdomen and pelvis revealed pancolitis - leukocytosis, improving Leukocytosis, due to severe Cdiff. Non-anion gap metabolic acidosis suspect secondary to bicarb loss from ongoing diarrhea -on bicarb gtt Acute renal failure suspect secondary to hypotension and IV contrast -mucjh improved Acute metabolic encephalopathy secondary to active infection and dehydration MRSA urine, but UA very mild pyuria ? aspiration PNA - pt apparently shows s/o aspiration 2/2 dysphagia RECS: Continue on oral vancomycin and lactobacillus Stop Vanco enema Continue Dificid Stop Azactam Monitor temps Follow cultures Monitor progress D/W Natalee Lucia MD October 25, 2017 09:39
--- NOTE | 2017-10-25 10:56 | HHI.PR ---
Subjective Remarks Critical Care Notes: This is an 87-year-old male. Date of admission 10/17/2017. Date of consultation 10/19/2017. Patient with many comorbidities including dementia disorder, TIAs, seizures, prostate cancer, COPD, gastroesophageal reflux disease , hypertension, dyslipidemia, esophageal strictures, left bundle branch block, ventricular arterial disease and atherosclerotic heart disease. History of pill esophagitis/esophageal strictures with history of PEG tube placement. Patient was admitted to the hospital service on 10/17 with diarrhea/abdominal pain. CT abdomen/pelvis revealed pancolitis. Patient originally treated with metronidazole Patient with worsening status with increasing creatinine, WBCs. Infectious disease nephrology consult. Abdomen more distended today and hypotensive with systolic blood pressures in the 80s on the floor. Received 2 L normal saline. Due to clinical status, infectious disease recommended ICU transfer. On evaluation of patient with abdomen firm but not surgical with no rigidity. CT abdomen/pelvis currently pending. Lactate and all laboratories pending at time of dictation. 10/20: T-max 99.3 persistent leukocytosis. Patient continues on sodium bicarbonate infusion. Palliative medicine has been consulted for defining goals of care. 10/21: Patient failed swallow exam 2. Overnight, unable to pass NG tube plan for gastroenterology to assist. WBC count continues to be elevated. Patient noted to have large amount of coffee-ground emesis this afternoon. KUB pending. Serial hemoglobin and hematocrits obtained. Healthcare proxy at bedside tentative plan for possible hospice initiation.. Nephrology following , sodium bicarbonate concentration increased. 10/22: Off vasopressors. clinically improving. HR controlled. GAIL improving. plan for EGD today. long discussion with nephew and medical decision maker: he wishes patient to be aggressive measures but DNR, which I think is appropriate given his severe dementia and multiple acute on chronic medical problems. Hospitalist notes: 10/23: GIB status post EGD, Followed by ID specialist with Diagnosis of Severe Sepsis with Leukocytosis, Acidosis, renal failure now improved, Hypotension and tachycardia C Diff colitis, Encephalopathy, MRSA urine, Aspiration Pneumonia, recommended to continue Vancomycin, Lactobacillus, Vancomycin enema, IV Flagyl, Dificid, continue Micafungin, Azactam following flood cultures, UA and Urine cultures, CXR. stable in his bedroom, discussed with nurse Miss Mena. 10/24: Seen in his bedroom discussed with nurse Miss Mena, continue management by ID due to Sepsis, continue with Diarrhea, has NG tube to suction in place and Rectal tube, today had possible GI bleeding, but continue with Stable hemoglobin, asked for H and H by GI specialist, to continue vancomycin Oral and Lactobacillus, Dificid , Azactam and follow blood cultures. 10/25: Stable has Severe Sepsis, elevated Leukocytosis, metabolic Acidosis, Acute renal failure, C diff positive, CT abdomen revealed pancolitis, continue Bicarbonate drip, Improving his Encephalopathy, MRSA Urine, questionable aspiration Pneumonia, recommended by ID to continue Oral Vancomycin, lactobacillus, Stopped Vancomycin enema Stopped Azactam, continue Dificid, Discussed with nurse Mr. Lewis asked me to call his POA, . Nickolas Renteria I tried to contact him to the phone number but no answer from his number [phone], left a message and he will call me during the afternoon. Objective Vital Signs Date Time Temp Pulse Resp B/P (MAP) Pulse Ox O2 Delivery O2 Flow Rate FiO2 10/25/17 10:13 98 Nasal Cannula 3.00 10/25/17 10:00 83 10/25/17 08:00 99.0 71 22 131/60 (83) 99 10/25/17 08:00 71 10/25/17 06:00 92 10/25/17 04:00 92 10/25/17 04:00 98.9 92 20 123/58 (79) 98 10/25/17 02:00 88 10/25/17 00:00 88 10/25/17 00:00 98.9 88 22 168/67 (100) 95 10/24/17 22:00 85 10/24/17 20:00 83 10/24/17 20:00 98.4 83 18 158/71 (100) 98 10/24/17 19:46 93 Nasal Cannula 3.00 10/24/17 18:00 76 10/24/17 17:40 20 10/24/17 16:00 97.9 90 22 146/67 (93) 100 10/24/17 16:00 90 10/24/17 14:00 81 10/24/17 12:00 97.4 91 21 174/80 (111) 98 10/24/17 12:00 91 I/O 10/24/17 10/24/17 10/24/17 10/25/17 10/25/17 5/23/18 07:00 15:00 23:00 07:00 15:00 23:00 Intake Total 230 ml 700 ml 1350 ml 968 ml 100 ml Output Total 950 ml 1150 ml 550 ml Balance -720 ml 700 ml 200 ml 418 ml 100 ml IV Total 230 ml 700 ml 450 ml 234 ml 100 ml Tube Feeding 734 ml Other 900 ml Output Urine Total 350 ml 350 ml 350 ml Stool Total 600 ml 500 ml 200 ml Gastric Drainage Total 300 ml Result Diagram: 10/25/17 0340 10/25/17 0340 Imaging Last Impressions Chest X-Ray 10/22/17 0000 Signed Impressions: Service Date/Time: Sunday, October 22, 2017 15:12 - CONCLUSION: 1. NGT beyond the GE junction. 2. Patchy left lower lobe airspace disease. 3. Right midlung zone atelectasis lie scarring. Kwesi Humphreys MD Abdomen X-Ray 10/21/17 0000 Signed Impressions: Service Date/Time: Saturday, October 21, 2017 15:43 - CONCLUSION: Stable examination with mild diffuse gaseous distention of the small bowel consistent with adynamic ileus. Kwesi Humphreys MD Abdomen/Pelvis CT 10/19/172 Signed Impressions: Service Date/Time: October 22:34 - CONCLUSION: 1. Pancolitis without obstruction, perforation, or abscess. 2. Small volume ascites. Manish Jenkins Jr., MD Renal Ultrasound 10/19/17 0000 Signed Impressions: Service Date/Time: October 15:24 - CONCLUSION: 1. Increased echogenicity of the renal parenchyma bilaterally. This can be seen with chronic medical renal disease. 2. No hydronephrosis. Keo Trevizo MD Head CT 10/17/17 1042 Signed Impressions: Service Date/Time: Tuesday, October 17, 2017 11:07 - CONCLUSION: 1. No acute intracranial abnormality or significant interval change. Kwesi Humphreys MD Procedures EGD due to inability to perform NG tube, abdominal distention, Ileus and GI bleed, NG tube placed recommended PPIs, NPO except medication. NGT to suction. 10/22/17 Other Results Laboratory Tests Test 10/17/17 10:44 10/17/17 10:50 10/17/17 13:00 10/17/17 20:11 Total Creatine Kinase 32 U/L Troponin I LESS THAN 0.02 NG/ML B-Type Natriuretic Peptide 214 PG/ML Thyroid Stimulating Hormone 3rd Gen 2.280 uIU/ML Carbamazepine (Tegretol) Level 10.6 MCG/ML Stool C. difficile Toxin (PCR) POSITIVE Stl C. difficile Toxin Epiderm 027 PRESUMPTIVE NEGATIVE Urine Color YELLOW Urine Turbidity HAZY Urine pH 5.0 Urine Specific [place] 1.019 Urine Protein 30 mg/dL Urine Glucose (UA) NEG mg/dL Urine Ketones NEG mg/dL Urine Occult Blood TRACE Urine Nitrite NEG Urine Bilirubin NEG Urine Urobilinogen LESS THAN 2.0 MG/DL Urine Leukocyte Esterase TRACE Urine RBC 6 /hpf Urine WBC 4 /hpf Urine Bacteria RARE /hpf Microscopic Urinalysis Comment CATH-CULTURE IND Levetiracetam (Keppra) Level 33.7 mcg/mL Test 10/19/17 07:43 10/19/17 20:05 10/19/17 22:00 10/19/17 22:45 25-Hydroxy Vitamin D Total 28.1 ng/ML Prothrombin Time 11.7 SEC Prothromb Time International Ratio 1.2 RATIO Activated Partial Thromboplast Time 31.2 SEC Fibrinogen 417 mg/dL Direct Bilirubin 0.1 MG/DL Indirect Bilirubin 0.2 MG/DL Ammonia 31 MCMOL/L Lactate Dehydrogenase 226 U/L Triglycerides Level 70 MG/DL Cholesterol Level 55 MG/DL LDL Cholesterol 16 MG/DL HDL Cholesterol 24.8 MG/DL Cholesterol/HDL Ratio 2.21 RATIO Amylase Level 67 U/L Lipase 47 U/L Random Cortisol 28.0 MCG/DL Nasal Screen MRSA (PCR) MRSA DETECTED Blood Gas Puncture Site RT BRACHIAL Blood Gas Patient Temperature 98.6 Blood Gas HCO3 15 mmol/L Blood Gas Base Excess -10.4 mmol/L Blood Gas Oxygen Saturation 95 % Arterial Blood pH 7.30 Arterial Blood Partial Pressure CO2 31 mmHg Arterial Blood Partial Pressure O2 112 mmHg Arterial Blood Oxygen Content 13.4 Vol % Arterial Blood Carboxyhemoglobin 0.5 % Arterial Blood Methemoglobin 1.9 % Blood Gas Hemoglobin 10.0 G/DL Oxygen Delivery Device NASAL CANNULA Blood Gas Liter Flow 3 L/M Test 10/20/17 05:43 10/21/17 04:13 10/22/17 04:10 10/23/17 04:15 Toxic Granulation 1+ Lactic Acid Level 2.0 mmol/L Palomo Cells 1+ Acanthocytes 1+ Keratocytes OCC Basophilic Stippling FAINT Ovalocytes 1+ Random Vancomycin Level 13.1 COMMENT Neutrophils (%) (Auto) 85.2 % Lymphocytes (%) (Auto) 2.7 % Monocytes (%) (Auto) 11.6 % Eosinophils (%) (Auto) 0.3 % Basophils (%) (Auto) 0.2 % Neutrophils # (Auto) 31.4 TH/MM3 Lymphocytes # (Auto) 1.0 TH/MM3 Monocytes # (Auto) 4.3 TH/MM3 Eosinophils # (Auto) 0.1 TH/MM3 Basophils # (Auto) 0.1 TH/MM3 CBC Comment AUTO DIFF Differential Total Cells Counted 100 Neutrophils % (Manual) 67 % Band Neutrophils % 19 % Lymphocytes % 6 % Monocytes % 6 % Neutrophils # (Manual) 32.4 TH/MM3 Myelocytes 2 % Differential Comment FINAL DIFF MANUAL Platelet Estimate NORMAL Platelet Morphology Comment NORMAL Test 10/23/17 04:30 10/24/17 12:00 10/25/17 03:40 Blood Urea Nitrogen 27 MG/DL 18 MG/DL Creatinine 0.99 MG/DL 0.62 MG/DL Random Glucose 132 MG/DL 72 MG/DL Total Protein 5.1 GM/DL 4.9 GM/DL Albumin 1.7 GM/DL Calcium Level 6.8 MG/DL 7.2 MG/DL Phosphorus Level 2.5 MG/DL Magnesium Level 1.9 MG/DL Alkaline Phosphatase 58 U/L Aspartate Amino Transf (AST/SGOT) 34 U/L Alanine Aminotransferase (ALT/SGPT) 21 U/L Total Bilirubin 0.3 MG/DL Sodium Level 147 MEQ/L 146 MEQ/L Potassium Level 3.7 MEQ/L 3.5 MEQ/L Chloride Level 110 MEQ/L 110 MEQ/L Carbon Dioxide Level 27.4 MEQ/L 23.7 MEQ/L Vancomycin Level Trough 15.4 MCG/ML White Blood Count 24.8 TH/MM3 Red Blood Count 2.69 MIL/MM3 Hemoglobin 8.3 GM/DL Hematocrit 24.8 % Mean Corpuscular Volume 92.2 FL Mean Corpuscular Hemoglobin 30.9 PG Mean Corpuscular Hemoglobin Concent 33.5 % Red Cell Distribution Width 14.3 % Platelet Count 320 TH/MM3 Mean Platelet Volume 7.9 FL Anion Gap 12 MEQ/L Estimat Glomerular Filtration Rate 123 ML/MIN Protein Corrected Calcium 8.4 MG/DL Objective Remarks GENERAL: No acute distress. SKIN: has multiple ecchymotic areas on legs and arms. HEAD: Atraumatic. Normocephalic. EYES: Pupils equal and round. No scleral icterus. No injection or drainage. ENT: No nasal bleeding or discharge. Mucous membranes pink and dry. NG tube in place at slow suction. NECK: Trachea midline. No JVD. CARDIOVASCULAR: Irregular rate and rhythm. RESPIRATORY: clear to auscultation bilateral. GASTROINTESTINAL: Abdomen s distended. rectal tube in place. MUSCULOSKELETAL: Extremities no clubbing, cyanosis has edema 3+ NEUROLOGICAL: Awake and alert. Oriented x 3 Medications and IVs Current Medications Medications (Trade) Dose Ordered Sig/Timbo Route Start Time Stop Time Status Last Admin (NS Flush) 2 ml UNSCH PRN IV FLUSH 10/17/17 14:15 (NS Flush) 2 ml BID IV FLUSH 10/17/17 21:00 10/25/17 08:16 (Narcan Inj) 0.4 mg UNSCH PRN IV PUSH 10/17/17 14:15 (Milk Of Magnesia Liq) 30 ml Q12H PRN PO 10/17/17 14:15 (Senokot) 17.2 mg Q12H PRN PO 10/17/17 14:15 (Dulcolax Supp) 10 mg DAILY PRN RECTAL 10/17/17 14:15 (Lactulose Liq) 30 ml DAILY PRN PO 10/17/17 14:15 (Zofran Odt) 4 mg Q6H PRN PO 10/17/17 15:00 (Lactinex) 1 tab TID PO 10/17/17 18:00 10/25/17 08:14 (Lipitor) 20 mg HS PO 10/17/17 21:00 10/24/17 21:15 (TEGretol) 200 mg BID PO 10/17/17 21:00 10/25/17 08:15 (Plavix) 75 mg DAILY PO 10/18/17 09:00 10/25/17 08:14 (Ferrous Sulfate) 325 mg TIDPC PO 10/17/17 18:30 10/25/17 08:15 (Breo Ellipta 100-25 Inh) 1 puff DAILY INH 10/18/17 09:00 10/25/17 08:17 (Synthroid) 50 mcg DAILY@0600 PO 10/18/17 06:00 10/25/17 06:01 (Singulair) 10 mg HS PO 10/17/17 21:00 10/24/17 21:15 (Protonix) 40 mg DAILY PO 10/18/17 09:00 10/25/17 08:18 (Inderal) 10 mg Q12HR PO 10/17/17 21:00 Future Hold 10/18/17 09:50 (Zoloft) 25 mg HS PO 10/17/17 21:00 Future Hold 10/18/17 20:29 (Flonase Iftikhar Spr) 1 spray DAILY EACH NARE 10/18/17 09:00 10/24/17 07:56 (Heparin Inj) 5,000 units Q12HR SQ 10/17/17 21:00 10/25/17 08:14 (Pill Splitter) 1 ea UNSCH PRN OTHER 10/17/17 16:30 (VANCOMYCIN for oral use only) 500 mg QID PO 10/19/17 18:00 10/25/17 08:18 (Dificid) 200 mg BID PO 10/19/17 21:00 10/29/17 09:01 10/25/17 08:15 (Albuterol Neb) 2.5 mg Q2HR NEB PRN NEB 10/19/17 19:00 10/21/17 11:50 Acetaminophen 100 ml @ 400 mls/hr Q8H PRN IV 10/19/17 19:00 10/24/17 17:07 Levetriacetam 100 ml @ 400 mls/hr Q12HR IV 10/19/17 21:00 10/25/17 08:15 ([facility] Patient in critical care unit? Ass... Q361D .XX 10/19/17 22:30 10/19/17 22:30 (Brethine Inj) 1 mg UNSCH PRN SQ 10/20/17 23:45 (Lopressor Inj) 5 mg Q5M PRN IV PUSH 10/22/17 05:15 10/23/17 09:38 Potassium Chloride 100 ml @ 50 mls/hr Q2H PRN IV 10/22/17 17:45 Potassium Chloride 100 ml @ 50 mls/hr Q2H PRN IV 10/22/17 17:45 (K-Lyte Cl Eff) 50 meq UNSCH PRN PO 10/22/17 17:45 Potassium Chloride 100 ml @ 25 mls/hr UNSCH PRN IV 10/22/17 17:45 Potassium Chloride 100 ml @ 50 mls/hr Q2H PRN IV 10/22/17 17:45 Magnesium Sulfate 4 gm/Sodium Chloride 100 ml @ 50 mls/hr UNSCH PRN IV 10/22/17 17:45 (Mag-Ox) 800 mg UNSCH PRN PO 10/22/17 17:45 Magnesium Sulfate 2 gm/Sodium Chloride 100 ml @ 50 mls/hr UNSCH PRN IV 10/22/17 17:45 (K-Phos) 2,000 mg Q4H PRN PO 10/22/17 17:45 Sodium Phosphate 30 mmol/Sodium Chloride 250 ml @ 42 mls/hr UNSCH PRN IV 10/22/17 17:45 (K-Phos) 2,000 mg UNSCH PRN PO/TUBE 10/22/17 17:45 Potassium Phosphate 30 mmol/ Sodium Chloride 260 ml @ 42 mls/hr UNSCH PRN IV 10/22/17 17:45 (Lopressor) 12.5 mg Q6HR PO 10/22/17 18:00 10/25/17 06:01 (Free Water) VOLUME: 300 ML Q6HR G-TUBE 10/23/17 12:00 10/25/17 06:00 A/P Assessment and Plan 87 y/o Male with Severe Dementia, admitted with C Diff Colitis, Severe sepsis, acute kidney Injury, 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 1. Severe Sepsis with Leukocytosis, Acidosis, renal failure now improved, Hypotension and tachycardia C Diff colitis, Encephalopathy, MRSA urine, Aspiration Pneumonia, ID following, CT abdomen revealed pancolitis, continue Bicarbonate drip, Improving his Encephalopathy, continue Oral Vancomycin, lactobacillus, Stopped Vancomycin enema Stopped Azactam, continue Dificid, 2. Hypertension/Hyperlipidemia/Right bundle branch block/PAD/Atherosclerotic vascular disease Echocardiogram 2017 revealed ejection fraction of 55-60%. No regional wall motion abnormality. Mild TR. ON hold Lisinopril and Propranolol at this time on Atorvastatin, Plavix 75 mg daily. 3. COPD continue Nasal Cannula keep Oxygen saturation 92% or over, Bronchodilator, Mucolytics and Incentive spirometry. 4. GERD/Esophageal stricture/Pill Dysphagia/PEG tube placement status post removal/Nausea and vomit CT abdomen/pelvis on admission revealed pancolitis including the ascending colon. multiple attempts for NG tube placement, PPI, GI consult for NG tube placement EGD, as per GI specialist has distended abdomen, NGT to suction continue with Abdominal pain, Okay for speech therapy, KUB 5. Prostate Cancer History status post TURP 6. Hypothyroidism to continue Hormonal replacement 7. Acute Kidney Injury Improved Nephrology specialist following. 8. Anemia 9. C Diff Colitis on Fixadomicin 200 mg BID for 10 days, Vancomycin 500 mg by mouth four times a day, Lactobacillus per ID. 10. 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 There is compensatory enlargement of the posterior horns of the lateral ventricles stable from prior exam Continue Levetiracetam 500 mg by mouth three times a day, and Carbamazepine 200 mg by mouth BID, on hold Gabapentin and Sertraline. to resume once mentation improves. Discussed with nurse Mr. Lewis asked me to call his POA, Mr. Nickolas Renteria I tried to contact him to the phone number but no answer from his number [phone], left a message and he will call me during the afternoon. PT evaluate and treat Prophylaxis GI-pantoprazole -DVT -SCD/heparin subcu Discharge Planning Once cleared by specialists. Mirza Celeste MD October 25, 2017 10:56
--- NOTE | 2017-10-25 11:16 | HHI.GIFU ---
Subjective Remarks Pt resting in bed. Seems uncomfortable, says he has pain but cannot say where. Abd distended. (Aurora Menendez) Objective Vitals I&O Vital Signs Date Time Temp Pulse Resp B/P (MAP) Pulse Ox O2 Delivery O2 Flow Rate FiO2 10/25/17 10:13 98 Nasal Cannula 3.00 10/25/17 10:00 83 10/25/17 08:00 99.0 71 22 131/60 (83) 99 10/25/17 08:00 71 10/25/17 06:00 92 10/25/17 04:00 92 10/25/17 04:00 98.9 92 20 123/58 (79) 98 10/25/17 02:00 88 10/25/17 00:00 88 10/25/17 00:00 98.9 88 22 168/67 (100) 95 10/24/17 22:00 85 10/24/17 20:00 83 10/24/17 20:00 98.4 83 18 158/71 (100) 98 10/24/17 19:46 93 Nasal Cannula 3.00 10/24/17 18:00 76 10/24/17 17:40 20 10/24/17 16:00 97.9 90 22 146/67 (93) 100 10/24/17 16:00 90 10/24/17 14:00 81 10/24/17 12:00 97.4 91 21 174/80 (111) 98 10/24/17 12:00 91 I/O 10/24/17 10/24/17 10/24/17 10/25/17 10/25/17 10/25/17 07:00 15:00 23:00 07:00 15:00 23:00 Intake Total 230 ml 700 ml 1350 ml 968 ml 100 ml Output Total 950 ml 1150 ml 550 ml Balance -720 ml 700 ml 200 ml 418 ml 100 ml IV Total 230 ml 700 ml 450 ml 234 ml 100 ml Tube Feeding 734 ml Other 900 ml Output Urine Total 350 ml 350 ml 350 ml Stool Total 600 ml 500 ml 200 ml Gastric Drainage Total 300 ml Laboratory Laboratory Tests Test 10/24/17 12:00 10/24/17 15:07 10/25/17 03:40 Vancomycin Level Trough 15.4 Hemoglobin 8.5 8.3 Hematocrit 26.1 24.8 White Blood Count 24.8 Red Blood Count 2.69 Mean Corpuscular Volume 92.2 Mean Corpuscular Hemoglobin 30.9 Mean Corpuscular Hemoglobin Concent 33.5 Red Cell Distribution Width 14.3 Platelet Count 320 Mean Platelet Volume 7.9 Blood Urea Nitrogen 18 Creatinine 0.62 Random Glucose 72 Total Protein 4.9 Calcium Level 7.2 Sodium Level 146 Potassium Level 3.5 Chloride Level 110 Carbon Dioxide Level 23.7 Anion Gap 12 Estimat Glomerular Filtration Rate 123 Protein Corrected Calcium 8.4 Date/Time Source Procedure Growth Status 10/20/17 21:09 Blood Peripheral Aerobic Blood Culture - Final NO GROWTH IN 5 DAYS Complete 10/20/17 21:09 Blood Peripheral Anaerobic Blood Culture - Final NO GROWTH IN 5 DAYS Complete 10/17/17 10:50 Stool Stool Stool Occult Blood (JONNA) - Final HEMOCCULT NEGATIVE Complete 10/17/17 13:00 Urine Catheterized Urine Urine Culture - Final S. Aureus Mrsa Complete Imaging Last Impressions Chest X-Ray 10/22/17 0000 Signed Impressions: Service Date/Time: Sunday, October 22, 2017 15:12 - CONCLUSION: 1. NGT beyond the GE junction. 2. Patchy left lower lobe airspace disease. 3. Right midlung zone atelectasis lie scarring. Kwesi Humphreys MD Abdomen X-Ray 10/21/17 0000 Signed Impressions: Service Date/Time: Saturday, October 21, 2017 15:43 - CONCLUSION: Stable examination with mild diffuse gaseous distention of the small bowel consistent with adynamic ileus. Kwesi Humphreys MD Abdomen/Pelvis CT 10/19/172 Signed Impressions: Service Date/Time: October 22:34 - CONCLUSION: 1. Pancolitis without obstruction, perforation, or abscess. 2. Small volume ascites. Manish Jenkins Jr., MD Renal Ultrasound 10/19/17 0000 Signed Impressions: Service Date/Time: October 15:24 - CONCLUSION: 1. Increased echogenicity of the renal parenchyma bilaterally. This can be seen with chronic medical renal disease. 2. No hydronephrosis. Keo Trevizo MD Head CT 10/17/17 1042 Signed Impressions: Service Date/Time: Tuesday, October 17, 2017 11:07 - CONCLUSION: 1. No acute intracranial abnormality or significant interval change. Kwesi Humphreys MD Physical Exam HEENT: Normocephalic; atraumatic CHEST: Even/unlabored CARDIAC: Irregularly irregular ABDOMEN: Distended, semifirm, nontender, bowel sounds active EXTREMITIES: Generalized edema SKIN: pale; no rash; no jaundice. COFOUNDER: Awake, confused (Aurora Menendez EVP OPERATIONS) Assessment and Plan Plan Assessment: - Coffee ground emesis- one episode earlier today H/H has been fairly stable since admission. Last EGD in Jul [address] Guillaume dilatation (Jul 2017) --> Z line was located 36 cm from the incisors. There was a short stricture in the distal esophagus, multiple biopsies performed, stricture dilated using a 16 mm, mild antral gastropathy, normal duodenal mucosa in the entire examined duodenum, hiatal hernia. Pathology (gastric body and antral mucosa) mild chronic nonspecific antral gastritis negative for intestinal metaplasia and dysplasia (gastric mucosal tissue) severe chronic inflammatory changes negative for intestinal metaplasia and dysplasia, clinically stricture. Per RN multiple attempts at NG tube has been unsuccessful - Dysphagia- History of esophageal stricture as noted above, per POA at bedside pt normally receives relief of symptoms for about a year after dilatation. Per RN has failed swallow eval. Pt previously had G-tube in 2014, has since been removed - C. Diff colitis CT abdomen and pelvis reveals pancolitis ID following- Dificid, Vanco, Flagyl Hypotension- currently BP stable- Jere on hold EGD (10/22) --> 400 mL of gastric juice suctioned, NGT placed- placement documented endoscopically. Hiatal hernia (10/24) Still having significant output from NGT, per RN she has noticed some BRB in tubing, looks like brown colored output in suction canister. Continued liquid green stool, pt has Dignishield. Abdomen remains distended but soft. 10/25/17 abd distended, semifirm. NGT to suction. pt expresses pain but cannot further qualify. palliative care following. HH subtly trneding down. WBC trending down. Plan: ok for speech therapy KUB NGT to LIWS abx per ID await palliative care follow up Supportive care Pt has been seen and examined by myself and Dr. Padron and this note is on his behalf (Aurora Menendez) Physician Comments Patient seen and examined Ileus related to sepsis Agree with above Continue with current supportive care Monitor labs (Igor Padron MD) Aurora Menendez October 25, 2017 11:16 Igor Padron MD October 25, 2017 19:23
--- NOTE | 2017-10-25 12:19 | RADRPT ---
EXAM DATE: 10/25/2017 12:10 PM EDT AGE/SEX: 87 years / Male INDICATIONS: Abdominal distention. CLINICAL DATA: This is the patient's subsequent encounter. Patient reports that signs and symptoms h ave been present for 2 days and indicates a pain score of 7/10. MEDICAL/SURGICAL HISTORY: . Seizures. TIA. Hypertension. COPD. Asthma. . Prostatectomy. COMPARISON: [facility] [place], CT ABDOMEN & PELVIS W/O CONTRAST, 10/19/2017. [facility] [place], ABDOMEN KUB ONLY, 10/21/2017. . FINDINGS: There is an NG tube in place with its tip in the stomach. Dilated bowel is not seen. There is hazy d ensity to the abdomen which can be seen with ascites. Clips are seen in the lower pelvis. Surgical chadwick rdware seen in the proximal femurs bilaterally. There is a compression deformity at T9 and T12. There is increased density at the lung bases being worse on the left. CONCLUSION: Nonspecific KUB. Extremely dilated bowel is not seen. There is hazy density in the abdomen which can be suggestive of ascites. Electronically signed by: Yung Green MD 10/25/2017 12:17 PM EDT
[2017-10-25] MEDS: ATORVASTATIN 20 MG TAB PO SCH (21:00)
[2017-10-25] MEDS: MONTELUKAST SODIUM 10 MG TAB PO SCH (21:00)
[2017-10-26] VITALS (7 sets, daily range): BP systolic 122–145; BP diastolic 58–62; PULSE 81–98; RESP 16–19; TEMP 97.1–98.3; O2SAT 95–98
[2017-10-26] MEDS: FREE WATER G-TUBE SCH ×5 (05:22→23:59)
[2017-10-26] MEDS: METOPROLOL TARTRATE 25 MG TAB PO SCH ×5 (05:22→23:58)
[2017-10-26] MEDS: LEVOTHYROXINE SODIUM 50 MCG TAB PO SCH (05:22)
[2017-10-26 06:57] LABS: HEMATOCRIT 27.2 % (39.0-51.0); HEMOGLOBIN 8.8 GM/DL (13.0-17.0); MEAN CELL VOLUME 96.1 FL (80.0-100.0); MEAN CORPUSCULAR HGB CONC 32.2 % (32.0-36.0); MEAN PLATELET VOLUME 7.8 FL (7.0-11.0); PLATELET COUNT 365 TH/MM3 (150-450); RED BLOOD COUNT 2.83 MIL/MM3 (4.50-5.90); RED CELL DISTRIBUTION WIDTH 14.6 % (11.6-17.2)
[2017-10-26 07:10] LABS: BICARBONATE 17.3 MEQ/L (21.0-32.0); CALCIUM 7.7 MG/DL (8.5-10.1); CREATININE 0.68 MG/DL (0.60-1.30)
[2017-10-26] MEDS: carBAMazepine 200 MG TAB PO SCH ×3 (09:00→21:49)
[2017-10-26] MEDS: FIDAXOMICIN 200 MG TAB PO SCH ×3 (09:00→21:49)
[2017-10-26] MEDS: CLOPIDOGREL 75 MG TAB PO SCH ×2 (09:00→09:51)
[2017-10-26] MEDS: VANCOMYCIN 500 MG VIAL (FOR ORAL USE ONLY) PO SCH ×5 (09:00→21:48)
[2017-10-26] MEDS: PANTOPRAZOLE SOD 40 MG DELAYED RELEASE TAB PO SCH ×2 (09:00→09:51)
[2017-10-26] MEDS: LACTOBACILLUS ACIDOPHILUS TAB PO SCH ×4 (09:00→17:02)
[2017-10-26] MEDS: FERROUS SULFATE 325 MG (65 MG ELEMENTAL IRON) TAB PO SCH ×4 (09:30→17:02)
[2017-10-26] MEDS: levETIRAcetam INJ 100 ML IV SCH ×2 (09:47→21:48)
[2017-10-26] MEDS: FLUTICASONE PROPIONATE 50 MCG/ACT 16 GM NASAL SPRAY EACH NARE SCH (09:47)
[2017-10-26] MEDS: FLUTICASONE 100 MCG/VILANTEROL 25 MCG INHALER INH SCH (09:48)
[2017-10-26] MEDS: SODIUM CHLORIDE 0.9% FLUSH 10 ML FLUSH IV FLUSH SCH ×2 (09:51→21:49)
[2017-10-26] MEDS: HEPARIN SODIUM - SQ 10,000 UNITS/ML VIAL SQ SCH ×2 (09:52→21:49)
--- NOTE | 2017-10-26 12:23 | HHI.PR ---
Subjective Remarks Nursing reports that the patient had his NG tube withdrawn before he came to the regular floor. Patient thinks she is doing a little better. Denies any nausea or any thien abdominal pain. Working with occupational therapist currently. Objective Vital Signs Date Time Temp Pulse Resp B/P (MAP) Pulse Ox O2 Delivery O2 Flow Rate FiO2 10/26/17 08:00 97.1 88 16 122/58 (79) 95 10/26/17 04:00 98.1 82 19 125/62 (83) 98 10/26/17 00:00 98.0 98 19 124/60 (81) 95 10/25/17 22:00 100 10/25/17 20:00 98.7 84 24 120/58 (78) 99 10/25/17 20:00 84 10/25/17 19:29 95 Nasal Cannula 2.00 10/25/17 18:00 74 10/25/17 16:00 79 10/25/17 16:00 98.8 80 18 122/60 (80) 98 10/25/17 14:00 75 I/O 10/25/17 10/25/17 10/25/17 10/26/17 10/26/17 10/26/17 07:00 15:00 23:00 07:00 15:00 23:00 Intake Total 968 ml 100 ml 0 ml Output Total 550 ml 600 ml 400 ml Balance 418 ml 100 ml -600 ml -400 ml Intake Oral 0 ml IV Total 234 ml 100 ml Tube Feeding 734 ml Output Urine Total 350 ml 300 ml 400 ml Stool Total 200 ml 300 ml Bladder Scan Volume Amount 40 ml Result Diagram: 10/26/17 0555 10/26/17 0555 Objective Remarks Mild abdominal distention, otherwise is soft, no thien tenderness to palpation over abdomen Patient is currently working with physical therapist, awake, alert A/P Assessment and Plan 87 y/o Male with Severe Dementia, admitted with C Diff Colitis, Severe sepsis, acute kidney Injury, he will need medical terminologist Rehabilitation at this moment DNR but continue with Aggressive goals. Sepsis sepsis element significantly improved suspect c diff w/ possible pancolitis and possible asp PNA as culprits bc's neg; abx as below id following c diff colitis continue dificid and oral vancomycin GERD/Esophageal stricture/Pill Dysphagia/PEG tube placement status post removal/ Nausea and vomit clinically improving, NG tube out, on pureed diet per ST. 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 compensatory enlargement of the posterior horns of the lateral ventricles stable from prior exam Continue Levetiracetam 5, Carbamazepine; on hold Gabapentin and Sertraline. to resume once mentation improves. Prostate Cancer History status post TURP Hypothyroidism to continue Hormonal replacement Brad Tang MD October 26, 2017 12:23
[2017-10-26] MEDS: LISINOPRIL 5 MG TAB PO SCH (12:30)
--- NOTE | 2017-10-26 13:23 | HHI.HCPN ---
Reason for visit a. To assist with evaluation and management of symptoms including: pain, dyspnea, debility. b. To assist medical decision maker(s) with: better understanding of current medical conditions; weighing benefits/burdens of medical treatment options; making medical treatment decisions. . Subjective/Interval History Palliative care follow-up for further clarifications of goals of care. Patient seen in medical floor, resting bed in no acute distress. Patient alert to self and situation, confused as to place. Verbal, able to communicate needs. Patient endorsing feeling better than the prior days, denies nausea/vomiting or abdominal discomfort. Diarrhea appears more controlled. Patient endorsing tenderness to extremities, no history of chronic pain. He remains afebrile, stable hemodynamically. Tolerating O2 via nasal cannula at 2 L, oxygen saturation in the mid to high 90s. Laboratory workup today revealing persistent leukocytosis WBC 24.0, Hgb stable at 8.8. Renal function within normal limits. Abdomen less distended. NG tube for suctioning discontinued yesterday. Speech therapy following, patient on pured diet with honey thickened liquids. Nutrition is following. Case discussed with bedside RN. . Family/friend interactions Bedside conversation with patient's nephew/healthcare surrogate decision maker. Medical update provided by Dr. Tang. Nephew verbalized feeling optimistic regarding patient's improved clinical condition. He will like for patient to be discharged to assisted facility for rehabilitation as recommended by PT once pt is clinically stable. Ultimate goal is for patient to return to his long-term facility. Community DNR was signed, copy placed in chart. All questions were answered in great detail. . Advance Directives Living Will: Copy in medical record Health Care Surrogate: Copy in medical record Durable Power of Manager Publishing: Copy in medical record Advance Directive Specifics Date completed: 08/03/2015. . Health Care Surrogate(s): Nephew Nickolas Renteria. Alternate surrogate is his niece Francisca Sanches. . Documented care wishes: Living will with standard verbiage. . Significant change in goals: Goals of therapy remain aggressive short of no resuscitation. . Objective Vital Signs Date Time Temp Pulse Resp B/P (MAP) Pulse Ox O2 Delivery O2 Flow Rate FiO2 10/26/17 12:00 98.1 81 16 128/58 (81) 95 10/26/17 08:00 97.1 88 16 122/58 (79) 95 10/26/17 04:00 98.1 82 19 125/62 (83) 98 10/26/17 00:00 98.0 98 19 124/60 (81) 95 10/25/17 22:00 100 10/25/17 20:00 98.7 84 24 120/58 (78) 99 10/25/17 20:00 84 10/25/17 19:29 95 Nasal Cannula 2.00 10/25/17 18:00 74 10/25/17 16:00 79 10/25/17 16:00 98.8 80 18 122/60 (80) 98 10/25/17 14:00 75 Intake & Output 10/26/17 10/26/17 07:00 19:00 Intake Total 0 ml Output Total 400 ml Balance -400 ml Intake Oral 0 ml Output Urine Total 400 ml Bladder Scan Volume Amount 40 ml Physical Exam CONSTITUTIONAL/GENERAL: This is an frail looking elderly man resting in bed in no acute distress. TUBES/LINES/DRAINS: Nasal cannula, Han catheter, PIV's. SKIN: pale. no jaundice, rashes, or lesions. Skin temperature appropriate. Not diaphoretic. Ecchymosis to bilateral upper extremities. HEAD: Atraumatic. Normocephalic. EYES: Pupils equal and round and reactive. Extraocular motions intact. No scleral icterus. No injection or drainage. ENT: Hard of hearing. Nose without bleeding or purulent drainage. Moist oral mucosa. NECK: Trachea midline. Supple, nontender. CARDIOVASCULAR: Regular rate and rhythm. Peripheral pulses symmetric. RESPIRATORY/CHEST: Symmetric, unlabored respirations. Clear, diminished breath sounds bilaterally. GASTROINTESTINAL: Abdomen round, large, mildly distended. Small protruding hernia to former site of PEG tube (scar). GENITOURINARY: Han catheter in place. MUSCULOSKELETAL: Extremities without clubbing, cyanosis. Pitting edema to all 4 extremities. NEUROLOGICAL: Awake and alert to self and situation. Verbal, able to communicate needs. PSYCHIATRIC: Calm. . Diagnostic Tests Laboratory Laboratory Tests Test 10/23/17 17:00 10/23/17 22:35 10/24/17 04:31 10/24/17 12:00 Hemoglobin 9.6 GM/DL (13.0-17.0) 9.2 GM/DL (13.0-17.0) 8.7 GM/DL (13.0-17.0) Hematocrit 29.2 % (39.0-51.0) 27.6 % (39.0-51.0) 25.7 % (39.0-51.0) White Blood Count 26.4 TH/MM3 (4.0-11.0) Red Blood Count 2.75 MIL/MM3 (4.50-5.90) Mean Corpuscular Volume 93.7 FL (80.0-100.0) Mean Corpuscular Hemoglobin 31.5 PG (27.0-34.0) Mean Corpuscular Hemoglobin Concent 33.6 % (32.0-36.0) Red Cell Distribution Width 14.1 % (11.6-17.2) Platelet Count 295 TH/MM3 (150-450) Mean Platelet Volume 7.6 FL (7.0-11.0) Blood Urea Nitrogen 22 MG/DL (7-18) Creatinine 0.78 MG/DL (0.60-1.30) Random Glucose 105 MG/DL (74-106) Total Protein 4.7 GM/DL (6.4-8.2) Calcium Level 7.1 MG/DL (8.5-10.1) Sodium Level 144 MEQ/L (136-145) Potassium Level 3.5 MEQ/L (3.5-5.1) Chloride Level 109 MEQ/L (98-107) Carbon Dioxide Level 24.3 MEQ/L (21.0-32.0) Anion Gap 11 MEQ/L (5-15) Estimat Glomerular Filtration Rate 94 ML/MIN (>89) Protein Corrected Calcium 8.4 MG/DL (8.5-10.1) Vancomycin Level Trough 15.4 MCG/ML (5.0-10.0) Test 10/24/17 15:07 10/25/17 03:40 10/26/17 05:55 Hemoglobin 8.5 GM/DL (13.0-17.0) 8.3 GM/DL (13.0-17.0) 8.8 GM/DL (13.0-17.0) Hematocrit 26.1 % (39.0-51.0) 24.8 % (39.0-51.0) 27.2 % (39.0-51.0) White Blood Count 24.8 TH/MM3 (4.0-11.0) 24.0 TH/MM3 (4.0-11.0) Red Blood Count 2.69 MIL/MM3 (4.50-5.90) 2.83 MIL/MM3 (4.50-5.90) Mean Corpuscular Volume 92.2 FL (80.0-100.0) 96.1 FL (80.0-100.0) Mean Corpuscular Hemoglobin 30.9 PG (27.0-34.0) 31.0 PG (27.0-34.0) Mean Corpuscular Hemoglobin Concent 33.5 % (32.0-36.0) 32.2 % (32.0-36.0) Red Cell Distribution Width 14.3 % (11.6-17.2) 14.6 % (11.6-17.2) Platelet Count 320 TH/MM3 (150-450) 365 TH/MM3 (150-450) Mean Platelet Volume 7.9 FL (7.0-11.0) 7.8 FL (7.0-11.0) Blood Urea Nitrogen 18 MG/DL (7-18) 18 MG/DL (7-18) Creatinine 0.62 MG/DL (0.60-1.30) 0.68 MG/DL (0.60-1.30) Random Glucose 72 MG/DL (74-106) 68 MG/DL (74-106) Total Protein 4.9 GM/DL (6.4-8.2) Calcium Level 7.2 MG/DL (8.5-10.1) 7.7 MG/DL (8.5-10.1) Sodium Level 146 MEQ/L (136-145) 146 MEQ/L (136-145) Potassium Level 3.5 MEQ/L (3.5-5.1) 3.7 MEQ/L (3.5-5.1) Chloride Level 110 MEQ/L (98-107) 112 MEQ/L (98-107) Carbon Dioxide Level 23.7 MEQ/L (21.0-32.0) 17.3 MEQ/L (21.0-32.0) Anion Gap 12 MEQ/L (5-15) 17 MEQ/L (5-15) Estimat Glomerular Filtration Rate 123 ML/MIN (>89) 110 ML/MIN (>89) Protein Corrected Calcium 8.4 MG/DL (8.5-10.1) Result Diagram: 10/26/17 0555 10/26/17 0555 Imaging Last 48 hours Impressions Abdomen X-Ray 10/25/17 0000 Signed Impressions: CONCLUSION: Nonspecific KUB. Extremely dilated bowel is not seen. There is hazy density in the abdomen which can be suggestive of ascites. Procedures * 10/22/17 -diagnostic EGD . Assessment and Plan Disease Oriented Problem List: (1) Sepsis (2) Clostridium difficile colitis (3) Acute kidney injury (4) COPD (chronic obstructive pulmonary disease) (5) Seizure disorder (6) Dementia (7) Physical deconditioning Symptom Scale: (1) Dyspnea 0-10 Scale: Unable to quantify (2) Pain 0-10 Scale: Unable to quantify (3) Debility 0-10 Scale: Unable to quantify Pertinent Non-Medical Issues Psychosocial: Originally from [place]. , no biological children. Retired. Worked in construction, no service. Resident of [facility]. Spiritual: [employer] catherine. Legal: Advance directives completed. Ethical issues impacting care: No ethical issues identified. . Important Contacts Nephew/healthcare surrogate Nickolas Renteria . . Prognosis Mr. Lucas is an 87-year-old male with a medical history significant for dementia, hypertension, COPD, prostate cancer, GERD and seizure. Patient presented to ED via EMS on 10/17/17 with reports of altered mental status, headaches and diarrhea. Patient was admitted with C. difficile and UTI. Clinical course complicated with worsening abdominal distention, acute kidney injury and severe sepsis. Overall prognosis appears poor in the setting of sepsis, C. difficile colitis, acute renal failure, dementia, multiple chronic ongoing comorbidities, advanced age and profound physical deconditioning. Patient appears hospice appropriate should family elects comfort-directed care. . Code Status: No Code Plan * CODE STATUS: No code. Community DNR signed and placed in chart * HEALTHCARE DECISION-MAKING: Patient with limited participation in medical decision making secondary to mild dementia, acute illness. Advanced directives completed, most recent advanced directive dated 08/03/2015 naming patient's nephew Nickolas Renteria as healthcare surrogate decision maker, alternate surrogate is kyler Sanches. Palliative care recommends shared decision- making with patient and HCS Nickolas Renteria. * GOALS OF CARE: patient and nephew/healthcare surrogate decision maker Nickolas Renteria electing to continue conservative management short of NO resuscitation. Patient and nephew receptive to discharge to assisted facility for rehabilitation once medically clear. Ultimate goal is for patient to return to his long-term facility. Hospice philosophy and benefits previously introduced, family receptive to hospice should patient's clinical condition worsen or in the setting of increased symptom burden. * SYMPTOMS: = Dyspnea, multifactorial secondary to COPD, sepsis, acute illness. Currently tolerating O2 via nasal cannula at 2 L. = Pain: Abdominal pain secondary to distention, active C. difficile colitis. Infectious disease following, opiates not recommended in the setting of colitis. Patient appears comfortable during my visit, no further recommendations. = Debility: Patient resident of [facility], requires assistance with all ADLs besides feedings. Poor activity tolerance. PT following, PT at rehab recommended. * Case discussed with bedside RN. * Palliative care contact information has been provided to patient and family. * Palliative care will continue to follow up for further clarification of goals of care as patient's clinical course continues to evolve. . Time Spent Total Floor Time (mins): 34 (Total time to include review of medical records, physical exam, goals of care conversation with patient and nephew Nickolas, case discussion with bedside RN.) >50% Counseling/Coord of Care: Yes Attestation To help prompt me to consider important information that might be impacting today's encounter and assessment, information from prior notes written by myself or my colleagues may have been "brought forward" into today's note. My signature on this note, however, is an attestation that I personally performed the exam, history, and/or decision-making noted today, and, unless otherwise indicated, the interactions with patient, family, and staff as well as the review of records all occurred today. I also attest that the listed assessment and stated plan reflect my best clinical judgment today based on the combination of historical information, prior notes, and today's exam/ interactions. When time spent is documented, it refers only to time spent today by the signer, or if indicated, combined time spent today by collaborating physician/nurse practitioner. Nuvia Adames October 26, 2017 13:23
--- NOTE | 2017-10-26 14:43 | HHI.GIFU ---
Subjective Remarks Patient is resting in the bed eyes closed but responds to verbal stimuli States abdomen still talked and mildly distended, no acute pain at rest Patient has minimal appetite and is requesting some sherbet Hemoglobin 8.8 no obvious bleeding noted (Danielle Tidwell) Objective Vitals I&O Vital Signs Date Time Temp Pulse Resp B/P (MAP) Pulse Ox O2 Delivery O2 Flow Rate FiO2 10/26/17 12:00 98.1 81 16 128/58 (81) 95 10/26/17 08:00 97.1 88 16 122/58 (79) 95 10/26/17 04:00 98.1 82 19 125/62 (83) 98 10/26/17 00:00 98.0 98 19 124/60 (81) 95 10/25/17 22:00 100 10/25/17 20:00 98.7 84 24 120/58 (78) 99 10/25/17 20:00 84 10/25/17 19:29 95 Nasal Cannula 2.00 10/25/17 18:00 74 10/25/17 16:00 79 10/25/17 16:00 98.8 80 18 122/60 (80) 98 I/O 10/25/17 10/25/17 10/25/17 10/26/17 10/26/17 10/26/17 07:00 15:00 23:00 07:00 15:00 23:00 Intake Total 968 ml 100 ml 0 ml Output Total 550 ml 600 ml 400 ml Balance 418 ml 100 ml -600 ml -400 ml Intake Oral 0 ml IV Total 234 ml 100 ml Tube Feeding 734 ml Output Urine Total 350 ml 300 ml 400 ml Stool Total 200 ml 300 ml Bladder Scan Volume Amount 40 ml Laboratory Laboratory Tests Test 10/26/17 05:55 White Blood Count 24.0 Red Blood Count 2.83 Hemoglobin 8.8 Hematocrit 27.2 Mean Corpuscular Volume 96.1 Mean Corpuscular Hemoglobin 31.0 Mean Corpuscular Hemoglobin Concent 32.2 Red Cell Distribution Width 14.6 Platelet Count 365 Mean Platelet Volume 7.8 Blood Urea Nitrogen 18 Creatinine 0.68 Random Glucose 68 Calcium Level 7.7 Sodium Level 146 Potassium Level 3.7 Chloride Level 112 Carbon Dioxide Level 17.3 Anion Gap 17 Estimat Glomerular Filtration Rate 110 Date/Time Source Procedure Growth Status 10/20/17 21:09 Blood Peripheral Aerobic Blood Culture - Final NO GROWTH IN 5 DAYS Complete 10/20/17 21:09 Blood Peripheral Anaerobic Blood Culture - Final NO GROWTH IN 5 DAYS Complete 10/17/17 10:50 Stool Stool Stool Occult Blood (JONNA) - Final HEMOCCULT NEGATIVE Complete 10/17/17 13:00 Urine Catheterized Urine Urine Culture - Final S. Aureus Mrsa Complete Imaging Last Impressions Abdomen X-Ray 10/25/17 0000 Signed Impressions: CONCLUSION: Nonspecific KUB. Extremely dilated bowel is not seen. There is hazy density in the abdomen which can be suggestive of ascites. Chest X-Ray 10/22/17 0000 Signed Impressions: Service Date/Time: Sunday, October 22, 2017 15:12 - CONCLUSION: 1. NGT beyond the GE junction. 2. Patchy left lower lobe airspace disease. 3. Right midlung zone atelectasis lie scarring. Kwesi Humphreys MD Abdomen/Pelvis CT 10/19/17 2042 Signed Impressions: Service Date/Time: October 22:34 - CONCLUSION: 1. Pancolitis without obstruction, perforation, or abscess. 2. Small volume ascites. Manish Jenkins Jr., MD Renal Ultrasound 10/19/17 0000 Signed Impressions: Service Date/Time: October 15:24 - CONCLUSION: 1. Increased echogenicity of the renal parenchyma bilaterally. This can be seen with chronic medical renal disease. 2. No hydronephrosis. Keo Trevizo MD Head CT 10/17/17 1042 Signed Impressions: Service Date/Time: Tuesday, October 17, 2017 11:07 - CONCLUSION: 1. No acute intracranial abnormality or significant interval change. Kwesi Humphreys MD Physical Exam HEENT: Normocephalic; atraumatic CHEST: Even/unlabored at rest CARDIAC: Distant, controlled ABDOMEN: Distended, taut, nontender to light palpation, mild tympany, bowel sounds active soft EXTREMITIES: Generalized edema upper and lower extremities SKIN: pale; no rash; no jaundice. SUPERVISOR PRODUCTION: Awake, answering simple questions (Danielle Tidwell) Assessment and Plan Plan Assessment: - Coffee ground emesis- one episode earlier today H/H has been fairly stable since admission. Last EGD in Jul [address] Guillaume dilatation (Jul 2017) --> Z line was located 36 cm from the incisors. There was a short stricture in the distal esophagus, multiple biopsies performed, stricture dilated using a 16 mm, mild antral gastropathy, normal duodenal mucosa in the entire examined duodenum, hiatal hernia. Pathology (gastric body and antral mucosa) mild chronic nonspecific antral gastritis negative for intestinal metaplasia and dysplasia (gastric mucosal tissue) severe chronic inflammatory changes negative for intestinal metaplasia and dysplasia, clinically stricture. Per RN multiple attempts at NG tube has been unsuccessful - Dysphagia- History of esophageal stricture as noted above, per POA at bedside pt normally receives relief of symptoms for about a year after dilatation. Per RN has failed swallow eval. Pt previously had G-tube in 2014, has since been removed - C. Diff colitis CT abdomen and pelvis reveals pancolitis ID following- Dificid, Vanco, Flagyl Hypotension- currently BP stable- Jere on hold EGD (10/22) --> 400 mL of gastric juice suctioned, NGT placed- placement documented endoscopically. Hiatal hernia (10/24) Still having significant output from NGT, per RN she has noticed some BRB in tubing, looks like brown colored output in suction canister. Continued liquid green stool, pt has Dignishield. Abdomen remains distended but soft. 10/25/17 abd distended, semifirm. NGT to suction. pt expresses pain but cannot further qualify. palliative care following. HH subtly trneding down. WBC trending down. 10/26/2017 patient's resting in the bed now out of the intensive care setting, abdomen still mildly distended and taut. Patient currently has no nausea or vomiting, minimal appetite but thinks he can probably eat some sherbet NG tube out. Appreciate palliative care input. Patient is no code DNR status. hemoglobin 8.8. Note patient is on Plavix. Abdominal x-rays done on 2017 showing nonspecific KUB extremely dilated bowel is not seen there is hazy density in the abdomen which could be ascites. Continues with current treatment for C. difficile Plan: Diet blended, okay for sherbet Monitor labs with special attention to hemoglobin currently 8.8 Continue Dificid and vancomycin, monitor number of bowel movements in observe for any bleeding Supportive care PPI Pt has been seen and examined by myself and Dr. Padron and this note is on his behalf (Danielle Tidwell) Physician Comments Patient seen and examined Agree with above Continue with current supportive care Monitor labs (Igor Padron MD) Danielle Tidwell October 26, 2017 14:43 Igor Padron MD October 26, 2017 23:43
[2017-10-26] MEDS ORDERED: CARVEDILOL 3.125 MG TAB PO SCH (21:00)
[2017-10-26] MEDS: ATORVASTATIN 20 MG TAB PO SCH (21:49)
[2017-10-26] MEDS: MONTELUKAST SODIUM 10 MG TAB PO SCH (21:49)
[2017-10-27] VITALS (7 sets, daily range): BP systolic 103–135; BP diastolic 53–63; PULSE 78–91; RESP 16–18; TEMP 97.3–98.4; O2SAT 94–99
[2017-10-27] MEDS: LEVOTHYROXINE SODIUM 50 MCG TAB PO SCH (04:31)
[2017-10-27] MEDS: METOPROLOL TARTRATE 25 MG TAB PO SCH ×4 (04:31→23:55)
[2017-10-27] MEDS: FREE WATER G-TUBE SCH ×5 (04:34→23:55)
[2017-10-27 04:46] LABS: HEMATOCRIT 28.2 % (39.0-51.0); HEMOGLOBIN 9.3 GM/DL (13.0-17.0); MEAN CELL VOLUME 93.7 FL (80.0-100.0); MEAN CORPUSCULAR HEMOGLOBIN 31.1 PG (27.0-34.0); MEAN CORPUSCULAR HGB CONC 33.1 % (32.0-36.0); MEAN PLATELET VOLUME 7.5 FL (7.0-11.0); PLATELET COUNT 416 TH/MM3 (150-450); RED BLOOD COUNT 3.01 MIL/MM3 (4.50-5.90); RED CELL DISTRIBUTION WIDTH 14.3 % (11.6-17.2); WHITE BLOOD COUNT 21.1 TH/MM3 (4.0-11.0)
[2017-10-27 05:16] LABS: BICARBONATE 24.9 MEQ/L (21.0-32.0); CALCIUM 7.6 MG/DL (8.5-10.1); CREATININE 0.83 MG/DL (0.60-1.30)
[2017-10-27] MEDS ORDERED: FUROSEMIDE 20 MG/2 ML VIAL IV PUSH ONE (07:00)
[2017-10-27] MEDS: HEPARIN SODIUM - SQ 10,000 UNITS/ML VIAL SQ SCH ×2 (09:00→22:36)
[2017-10-27] MEDS: VANCOMYCIN 500 MG VIAL (FOR ORAL USE ONLY) PO SCH ×4 (09:00→22:35)
[2017-10-27] MEDS: CLOPIDOGREL 75 MG TAB PO SCH (09:00)
[2017-10-27] MEDS: LACTOBACILLUS ACIDOPHILUS TAB PO SCH ×3 (09:00→18:55)
[2017-10-27] MEDS: FERROUS SULFATE 325 MG (65 MG ELEMENTAL IRON) TAB PO SCH ×3 (09:00→18:55)
[2017-10-27] MEDS: PANTOPRAZOLE SOD 40 MG DELAYED RELEASE TAB PO SCH (09:01)
[2017-10-27] MEDS: LISINOPRIL 5 MG TAB PO SCH (09:01)
[2017-10-27] MEDS: FIDAXOMICIN 200 MG TAB PO SCH ×2 (09:01→22:36)
[2017-10-27] MEDS: levETIRAcetam INJ 100 ML IV SCH (09:04)
[2017-10-27] MEDS: carBAMazepine 200 MG TAB PO SCH ×2 (09:04→22:36)
[2017-10-27] MEDS: SODIUM CHLORIDE 0.9% FLUSH 10 ML FLUSH IV FLUSH SCH ×2 (09:14→22:36)
[2017-10-27] MEDS: FLUTICASONE PROPIONATE 50 MCG/ACT 16 GM NASAL SPRAY EACH NARE SCH (09:14)
[2017-10-27] MEDS: FLUTICASONE 100 MCG/VILANTEROL 25 MCG INHALER INH SCH (09:14)
--- NOTE | 2017-10-27 13:57 | HHI.PR ---
Subjective Remarks Currently patient is tolerating heart healthy diet. He has an increase in his hemoglobin spontaneously. No signs of active bleeding in the last 24 hours. Objective Vital Signs Date Time Temp Pulse Resp B/P (MAP) Pulse Ox O2 Delivery O2 Flow Rate FiO2 10/27/17 12:00 97.8 78 16 117/57 (77) 97 10/27/17 08:00 97.4 83 16 135/63 (87) 99 10/27/17 04:00 98.1 88 18 128/59 (82) 95 10/27/17 00:05 91 10/27/17 00:00 98.0 88 17 134/63 (86) 98 10/26/17 20:10 91 10/26/17 20:00 98.3 90 17 138/62 (87) 96 10/26/17 16:00 97.5 98 17 145/62 (89) 96 I/O 10/26/17 10/26/17 10/26/17 10/27/17 10/27/17 10/27/17 07:00 15:00 23:00 07:00 15:00 23:00 Intake Total 0 ml 400 ml 240 ml Output Total 400 ml 750 ml 200 ml Balance -400 ml -350 ml 40 ml Intake Oral 0 ml 200 ml 240 ml IV Total 200 ml Output Urine Total 400 ml 400 ml 200 ml Stool Total 350 ml Bladder Scan Volume Amount 40 ml 80 ml # Bowel Movements 0 Result Diagram: 10/27/1733610/27/17336 Objective Remarks GENERAL: NAD, A&Ox3 HEAD: Normocephalic. NECK: Supple, trachea midline. No lymphadenopathy. EYES: No scleral icterus. No injection or drainage. CARDIOVASCULAR: Regular rate and rhythm without murmurs, gallops, or rubs. RESPIRATORY: Breath sounds equal bilaterally. No accessory muscle use. GASTROINTESTINAL: Abdomen soft, non-tender, nondistended. MUSCULOSKELETAL: No cyanosis, or edema. SKIN: Warm and dry. NEURO: No focal neurological deficitis. A/P Assessment and Plan 87-year-old male admitted secondary to severe sepsis, C. difficile colitis, acute kidney injury. He is a long-term rehab facility and has severe dementia at baseline. Anemia May be GI losses due to colitis Follow H/H Sepsis Resolved C. difficile colitis Continue oral vancomycin Continue Dificid GERD Esophageal stricture Dysphagia Nausea vomiting Currently improved Tolerating heart healthy diet Acute kidney injury Resolved Follow renal function Hyperlipidemia Continue present treatment Follow as an outpatient Hypertension Continue baseline treatment Follow blood pressures Adjust treatments as needed Right bundle branch block Peripheral artery disease Arthrosclerotic vascular disease Continue lisinopril Continue Lopressor Continue Plavix Continue atorvastatin COPD Continue mucolytic's Continue bronchodilator History of prostate cancer Status post TURP Follows an outpatient Seizure disorder TIA history Follow clinically Continue Levetiracetam Continue Carbamazepine Dementia Supportive care Hypothyroidism continue Hormonal replacement DVT Prophylaxis On plavix No further upgrade in treatment due to bleed risks Discharge Planning Anticipate discharge tomorrow if H/H continues to be stable Gt Meek MD October 27, 2017 13:57
--- NOTE | 2017-10-27 14:03 | HHI.GIFU ---
Subjective Remarks Skin is pale, dry Patient is resting in the bed states BM 1 this a.m. Abdomen with mild to moderate distention with positive bowel sounds No abdominal pain no nausea no vomiting Appetite improving gradual daily (Danielle Tidwell) Objective Vitals I&O Vital Signs Date Time Temp Pulse Resp B/P (MAP) Pulse Ox O2 Delivery O2 Flow Rate FiO2 10/27/17 12:00 97.8 78 16 117/57 (77) 97 10/27/17 08:00 97.4 83 16 135/63 (87) 99 10/27/17 04:00 98.1 88 18 128/59 (82) 95 10/27/17 00:05 91 10/27/17 00:00 98.0 88 17 134/63 (86) 98 10/26/17 20:10 91 10/26/17 20:00 98.3 90 17 138/62 (87) 96 10/26/17 16:00 97.5 98 17 145/62 (89) 96 I/O 10/26/17 10/26/17 10/26/17 10/27/17 10/27/17 10/27/17 07:00 15:00 23:00 07:00 15:00 23:00 Intake Total 0 ml 400 ml 240 ml Output Total 400 ml 750 ml 200 ml Balance -400 ml -350 ml 40 ml Intake Oral 0 ml 200 ml 240 ml IV Total 200 ml Output Urine Total 400 ml 400 ml 200 ml Stool Total 350 ml Bladder Scan Volume Amount 40 ml 80 ml # Bowel Movements 0 Laboratory Laboratory Tests Test 10/27/17 03:37 White Blood Count 21.1 Red Blood Count 3.01 Hemoglobin 9.3 Hematocrit 28.2 Mean Corpuscular Volume 93.7 Mean Corpuscular Hemoglobin 31.1 Mean Corpuscular Hemoglobin Concent 33.1 Red Cell Distribution Width 14.3 Platelet Count 416 Mean Platelet Volume 7.5 Blood Urea Nitrogen 14 Creatinine 0.83 Random Glucose 126 Calcium Level 7.6 Sodium Level 149 Potassium Level 3.6 Chloride Level 112 Carbon Dioxide Level 24.9 Anion Gap 12 Estimat Glomerular Filtration Rate 88 Date/Time Source Procedure Growth Status 10/20/17 21:09 Blood Peripheral Aerobic Blood Culture - Final NO GROWTH IN 5 DAYS Complete 10/20/17 21:09 Blood Peripheral Anaerobic Blood Culture - Final NO GROWTH IN 5 DAYS Complete 10/17/17 10:50 Stool Stool Stool Occult Blood (JONNA) - Final HEMOCCULT NEGATIVE Complete 10/17/17 13:00 Urine Catheterized Urine Urine Culture - Final S. Aureus Mrsa Complete Imaging Last Impressions Abdomen X-Ray 10/25/17 0000 Signed Impressions: CONCLUSION: Nonspecific KUB. Extremely dilated bowel is not seen. There is hazy density in the abdomen which can be suggestive of ascites. Chest X-Ray 10/22/17 0000 Signed Impressions: Service Date/Time: Sunday, October 22, 2017 15:12 - CONCLUSION: 1. NGT beyond the GE junction. 2. Patchy left lower lobe airspace disease. 3. Right midlung zone atelectasis lie scarring. Kwesi Humphreys MD Abdomen/Pelvis CT 10/19/172041 Signed Impressions: Service Date/Time: October 22:34 - CONCLUSION: 1. Pancolitis without obstruction, perforation, or abscess. 2. Small volume ascites. Manish Jenkins Jr., MD Renal Ultrasound 10/19/17 0000 Signed Impressions: Service Date/Time: October 15:24 - CONCLUSION: 1. Increased echogenicity of the renal parenchyma bilaterally. This can be seen with chronic medical renal disease. 2. No hydronephrosis. Keo Trevizo MD Head CT 10/17/17 1042 Signed Impressions: Service Date/Time: Tuesday, October 17, 2017 11:07 - CONCLUSION: 1. No acute intracranial abnormality or significant interval change. Kwesi Humphreys MD Physical Exam HEENT: Normocephalic; atraumatic, skin color pale but dry CHEST: Even/unlabored at rest lungs are essentially clear CARDIAC: Regular rate and rhythm ABDOMEN: Round, soft, mild to moderate distention but no abdominal pain, bowel sounds active soft EXTREMITIES: Mild generalized edema gradual improvement SKIN: pale; no rash; no jaundice. ELECTRICAL DESIGN TECHNICIAN: Awake, answering simple questions (Danielle Tidwell) Assessment and Plan Plan Assessment: - Coffee ground emesis- one episode earlier today H/H has been fairly stable since admission. Last EGD in Jul [address] Aundrea perrin (Jul 2017) --> Z line was located 36 cm from the incisors. There was a short stricture in the distal esophagus, multiple biopsies performed, stricture dilated using a 16 mm, mild antral gastropathy, normal duodenal mucosa in the entire examined duodenum, hiatal hernia. Pathology (gastric body and antral mucosa) mild chronic nonspecific antral gastritis negative for intestinal metaplasia and dysplasia (gastric mucosal tissue) severe chronic inflammatory changes negative for intestinal metaplasia and dysplasia, clinically stricture. Per RN multiple attempts at NG tube has been unsuccessful - Dysphagia- History of esophageal stricture as noted above, per POA at bedside pt normally receives relief of symptoms for about a year after dilatation. Per RN has failed swallow eval. Pt previously had G-tube in 2014, has since been removed - C. Diff colitis CT abdomen and pelvis reveals pancolitis ID following- Dificid, Vanco, Flagyl Hypotension- currently BP stable- Jere on hold EGD (10/22) --> 400 mL of gastric juice suctioned, NGT placed- placement documented endoscopically. Hiatal hernia (10/24) Still having significant output from NGT, per RN she has noticed some BRB in tubing, looks like brown colored output in suction canister. Continued liquid green stool, pt has Dignishield. Abdomen remains distended but soft. 10/25/17 abd distended, semifirm. NGT to suction. pt expresses pain but cannot further qualify. palliative care following. HH subtly trneding down. WBC trending down. 10/26/2017 patient's resting in the bed now out of the intensive care setting, abdomen still mildly distended and taut. Patient currently has no nausea or vomiting, minimal appetite but thinks he can probably eat some sherbet NG tube out. Appreciate palliative care input. Patient is no code DNR status. hemoglobin 8.8. Note patient is on Plavix. Abdominal x-rays done on 2017 showing nonspecific KUB extremely dilated bowel is not seen there is hazy density in the abdomen which could be ascites. Continues with current treatment for C. difficile 09/27/2017 patient's resting in the bed showing signs of general gradual improvement with less abdominal pain but still has mild to moderate distention bowel sounds are positive appetite is gradually increasing without any nausea or vomiting. Labs show hemoglobin 9.3 gradual decrease in WBC count 21.1, INR 1.2. No obvious bleeding noted. Patient is on Plavix 75 daily Plan: Diet heart healthy , encouraged to eat increased fluid intake Probiotics Dificid Protonix Vancomycin Monitor labs Supportive care , showing gradual improvement, encourage patient to be up out of bed and increase mobility and activity if possible for his strengthening Pt has been seen per myself and Dr. Padron, note is on his behalf (Danielle Tidwell) Physician Comments Patient seen and examined Agree with above Continue with current supportive care Monitor labs Not much to add from a GI perspective we will sign off at this time Please reconsult as needed (Igor Padron MD) Danielle Tidwell October 27, 2017 14:03 Igor Padron MD October 27, 2017 15:01
--- NOTE | 2017-10-27 19:04 | HHI.IDPN ---
Subjective Subjective Remarks is an 87-year-old male with a past medical history significant for dementia, arthritis, prostate cancer, HTN, HLD, TIA, COPD, GERD, seizures, presented to the ED after being sent from [facility] due to worsening altered mental status and diarrhea. Due to patient's severe dementia, history is obtained from review of electronic medical record. Patient was found to be in sepsis with white count 29.5, fever of 102.[address] scan of the abdomen and pelvis revealed pancolitis most pronounced involving the ascending colon. Urinalysis was significant for MRSA. C diff testing was positive. Patient was started on oral vancomycin. Patient's white count continued to trend upwards and he was started on oral Flagyl and his vancomycin dose was increased. His white count today is 43.9 with left shift and bandemia. He is also found to have acute renal failure with elevated creatinine of 2.34 nephrology was consulted. Patient is acidotic with bicarb of 14.5 and is currently on bicarb drip. Infectious disease consultation has been requested for evaluation and management of severe C. difficile infection and MRSA in the urine. Patient seen and examined. He is currently afebrile. Patient has been hypotensive today. Blood pressure has improved to 109/55 from 89/44 earlier this morning. He appears extremely dry on exam. He can be heard audibly wheezing. Discussed with the nursing staff who states his urine output has been extremely low. He was given IV fluid bolus and is on 125 cc of maintenance fluids. Patient has had 5 blackish green sticky bowel movements today of moderate volume. Patient has previous urine cultures with MRSA. He also has a history of ESBL E. coli in the urine. Notes reviewed D/W RN No fevers No rash Diarrhea but volume decreased. Formed now. BP ok WBC decreasing No abdominal pain On nasal O2 Antibiotics Vanco oral Dificid Azactam Lines Line sites with no e.o infection Past Medical History Past Medical History Dementia COPD Hypertension Seizure disorder History of TIAs Hypertension Dyslipidemia Cardiovascular disease GERD Urinary incontinence Prostate cancer History of previous MRSA and ESBL E. coli in urine History of coagulase negative staph bacteremia Hypothyroidism Past Surgical History Percutaneous endoscopic gastrostomy placement in November 2014 status post removal Appendectomy Bilateral hip surgeries with hardware Left ear cancer surgery Bilateral cataracts Prostatectomy Right carotid endarterectomy Tonsillectomy Allergies: Coded Allergies: amoxicillin (Unverified Allergy, Severe, Shortness of Breath, 10/17/17) clavulanic acid (Unverified Allergy, Severe, Shortness of Breath, 10/17/17) imipramine (Unverified Allergy, Severe, SEIZURE, 10/17/17) primidone (Unverified Allergy, Severe, SEIZURE, 10/17/17) Sulfa (Sulfonamide Antibiotics) (Unverified Allergy, Unknown, Rash, ) Objective . Vital Signs Date Time Temp Pulse Resp B/P (MAP) Pulse Ox O2 Delivery O2 Flow Rate FiO2 10/27/17 16:00 97.3 85 16 103/53 (70) 99 10/27/17 12:00 97.8 78 16 117/57 (77) 97 10/27/17 08:00 97.4 83 16 135/63 (87) 99 10/27/17 04:00 98.1 88 18 128/59 (82) 95 10/27/17 00:05 91 10/27/17 00:00 98.0 88 17 134/63 (86) 98 10/26/17 20:10 91 10/26/17 20:00 98.3 90 17 138/62 (87) 96 10/27/17 10/27/17 10/28/17 15:00 23:00 07:00 Intake Total 700 ml Output Total 1250 ml Balance -550 ml Intake Oral 700 ml Output Urine Total 900 ml Stool Total 350 ml . Laboratory Tests Test 10/26/17 05:55 10/27/17 03:37 White Blood Count 24.0 TH/MM3 21.1 TH/MM3 Red Blood Count 2.83 MIL/MM3 3.01 MIL/MM3 Hemoglobin 8.8 GM/DL 9.3 GM/DL Hematocrit 27.2 % 28.2 % Mean Corpuscular Volume 96.1 FL 93.7 FL Mean Corpuscular Hemoglobin 31.0 PG 31.1 PG Mean Corpuscular Hemoglobin Concent 32.2 % 33.1 % Red Cell Distribution Width 14.6 % 14.3 % Platelet Count 365 TH/MM3 416 TH/MM3 Mean Platelet Volume 7.8 FL 7.5 FL Laboratory Tests Test 10/26/17 05:55 10/27/17 03:37 Blood Urea Nitrogen 18 MG/DL 14 MG/DL Creatinine 0.68 MG/DL 0.83 MG/DL Random Glucose 68 MG/DL 126 MG/DL Calcium Level 7.7 MG/DL 7.6 MG/DL Sodium Level 146 MEQ/L 149 MEQ/L Potassium Level 3.7 MEQ/L 3.6 MEQ/L Chloride Level 112 MEQ/L 112 MEQ/L Carbon Dioxide Level 17.3 MEQ/L 24.9 MEQ/L Anion Gap 17 MEQ/L 12 MEQ/L Estimat Glomerular Filtration Rate 110 ML/MIN 88 ML/MIN Imaging Last Impressions Abdomen X-Ray 10/21/17 0000 Signed Impressions: Service Date/Time: Saturday, October 21, 2017 15:43 - CONCLUSION: Stable examination with mild diffuse gaseous distention of the small bowel consistent with adynamic ileus. Kwesi Humphreys MD Abdomen/Pelvis CT 10/19/172041 Signed Impressions: Service Date/Time: October 22:34 - CONCLUSION: 1. Pancolitis without obstruction, perforation, or abscess. 2. Small volume ascites. Manish Jenkins Jr., MD Chest X-Ray 10/19/17 180 Signed Impressions: Service Date/Time: October 18:17 - CONCLUSION: No acute disease. Yung Green MD Renal Ultrasound 10/19/17 0000 Signed Impressions: Service Date/Time: October 15:24 - CONCLUSION: 1. Increased echogenicity of the renal parenchyma bilaterally. This can be seen with chronic medical renal disease. 2. No hydronephrosis. Keo Trevizo MD Head CT 10/17/17 1042 Signed Impressions: Service Date/Time: Tuesday, October 17, 2017 11:07 - CONCLUSION: 1. No acute intracranial abnormality or significant interval change. Kwesi Humphreys MD Physical Exam GENERAL: NAD. Awakens easily. SKIN: No rashes, ecchymoses or lesions. Cool and dry. EYES: Pupils equal round and reactive. Extraocular motions intact. No scleral icterus. No injection or drainage. ENT: Nose without bleeding or purulent drainage. Throat without erythema, tonsillar hypertrophy or exudate. Uvula midline. Airway patent. Dry mucous membranes NECK: Trachea midline. Supple, nontender, no meningeal signs. CARDIOVASCULAR: Regular rate and rhythm without murmurs, gallops, or rubs. RESPIRATORY: not wheezing today . Diminished BS in all lung ashby. GASTROINTESTINAL: Abdomen distended, min tender. Incontinent of liquid dark brown stool. Remains tympanic to percussion No guarding or rebound tenderness. GENITOURINARY: Han catheter in place with dark yellow urine in the bag. MUSCULOSKELETAL: Extremities without clubbing, cyanosis, or edema. No calf tenderness. NEUROLOGICAL: Awake, talkative. Disoriented. ? baseline dementia. PSYCHIATRIC: calm PIV with no e/o infection. Assessment & Plan Remarks Severe sepsis with leukocytosis with elevated white count of 43.9, acidosis with bicarbonate 14.5, acute renal failure with creatinine of 2.34, hypotension and tachycardia and C. difficile positive diarrhea/colitis - CT of abdomen and pelvis revealed pancolitis - leukocytosis, improving Leukocytosis, due to severe Cdiff. Non-anion gap metabolic acidosis suspect secondary to bicarb loss from ongoing diarrhea -on bicarb gtt Acute renal failure suspect secondary to hypotension and IV contrast -mucjh improved Acute metabolic encephalopathy secondary to active infection and dehydration MRSA urine, but UA very mild pyuria ? aspiration PNA - pt apparently shows s/o aspiration 2/2 dysphagia RECS: Continue on oral vancomycin and lactobacillus. Continue Dificid (stop date: 10/29/2017) complains of cough with expectoration. Follow CXR. Avoid systemic antibiotics to avoid flare of Cdiff. Call ID if in doubt. Monitor temps Follow cultures Monitor progress D/W RN to cover for me this weekend. Purvi Grimaldo MD October 27, 2017 19:04
--- NOTE | 2017-10-27 19:29 | RADRPT ---
EXAM DATE: 10/27/2017 7:20 PM EDT AGE/SEX: 87 years / Male INDICATIONS: Shortness of breath. CLINICAL DATA: This is the patient's subsequent encounter. Patient reports that signs and symptoms h ave been present for 2 days and indicates a pain score of Nonresponsive. MEDICAL/SURGICAL HISTORY: . Seizures. TIA. Hypertension. COPD. Asthma. . Prostatectomy. COMPARISON: [facility] [place], 10/22/2017. . FINDINGS: Cardiomegaly present. Small bilateral pleural effusions with bilateral mostly basilar airspace diseas e. No pneumothorax. Mildly tortuous aorta. Previous NG tube has been removed. CONCLUSION: Cardiomegaly with basilar airspace disease and small effusions. Findings most characteristic of mild congestive heart failure. Electronically signed by: Gustavo Taylor MD 10/27/2017 7:28 PM EDT
[2017-10-27] MEDS: MONTELUKAST SODIUM 10 MG TAB PO SCH (22:35)
[2017-10-27] MEDS: ATORVASTATIN 20 MG TAB PO SCH (22:35)
[2017-10-28] VITALS: BP 120/60; PULSE 81; RESP 17; TEMP 98; O2SAT 95
[2017-10-28] MEDS: levETIRAcetam INJ 100 ML IV SCH ×3 (00:47→20:58)
[2017-10-28 04:00] VITALS: BP 119/62; PULSE 76; RESP 17; TEMP 97.2; O2SAT 95
[2017-10-28] MEDS: LEVOTHYROXINE SODIUM 50 MCG TAB PO SCH (05:25)
[2017-10-28] MEDS: METOPROLOL TARTRATE 25 MG TAB PO SCH ×3 (05:25→16:58)
[2017-10-28 07:31] LABS: BASOPHIL # 0.1 TH/MM3 (0-0.2); BASOPHIL % 0.4 % (0.0-2.0); EOSINOPHIL # 0.1 TH/MM3 (0-0.4); EOSINOPHIL % 0.8 % (0.0-4.0); HEMOGLOBIN 8.1 GM/DL (13.0-17.0); LYMPH % 7.3 % (9.0-44.0); LYMPHOCYTE # 1.3 TH/MM3 (1.0-4.8); MEAN CELL VOLUME 93.7 FL (80.0-100.0); MEAN CORPUSCULAR HEMOGLOBIN 31.5 PG (27.0-34.0); MEAN CORPUSCULAR HGB CONC 33.6 % (32.0-36.0); MEAN PLATELET VOLUME 7.5 FL (7.0-11.0); MONO % 13.9 % (0.0-8.0); MONOCYTE # 2.5 TH/MM3 (0-0.9); NEUT % 77.6 % (16.0-70.0); PLATELET COUNT 363 TH/MM3 (150-450); RED BLOOD COUNT 2.57 MIL/MM3 (4.50-5.90); RED CELL DISTRIBUTION WIDTH 14.9 % (11.6-17.2); WHITE BLOOD COUNT 18.1 TH/MM3 (4.0-11.0)
[2017-10-28 08:00] VITALS: BP 115/56; PULSE 86; RESP 17; TEMP 99.1; O2SAT 97
[2017-10-28 08:03] LABS: ALBUMIN 1.5 GM/DL (3.4-5.0); BICARBONATE 26.9 MEQ/L (21.0-32.0); CALCIUM 7.2 MG/DL (8.5-10.1); CALCIUM-PROTEIN CORRECTED 8.5 MG/DL (8.5-10.1); CREATININE 0.92 MG/DL (0.60-1.30); TOTAL BILIRUBIN ADULT 0.2 MG/DL (0.2-1.0); TOTAL PROTEIN 4.8 GM/DL (6.4-8.2)
[2017-10-28 08:34] LABS: BANDS 6 % (0-6); LYMPHOCYTES 3 % (9-44); METAMYELOCYTES 3 % (0-1); MONOCYTES 3 % (0-8); MYELOCYTES 1 % (0-0); POLYS (SEG NEUTROPHILS) 84 % (16-70)
[2017-10-28 08:35] LABS: OVALOCYTES 1+ (NORMAL)
[2017-10-28] MEDS: carBAMazepine 200 MG TAB PO SCH ×2 (08:42→20:58)
[2017-10-28] MEDS: FIDAXOMICIN 200 MG TAB PO SCH ×2 (08:42→20:58)
[2017-10-28] MEDS: CLOPIDOGREL 75 MG TAB PO SCH (08:42)
[2017-10-28] MEDS: FERROUS SULFATE 325 MG (65 MG ELEMENTAL IRON) TAB PO SCH ×3 (08:43→16:58)
[2017-10-28] MEDS: PANTOPRAZOLE SOD 40 MG DELAYED RELEASE TAB PO SCH (08:44)
[2017-10-28] MEDS: LACTOBACILLUS ACIDOPHILUS TAB PO SCH ×3 (08:44→16:58)
[2017-10-28] MEDS: LISINOPRIL 5 MG TAB PO SCH (08:44)
[2017-10-28] MEDS: FLUTICASONE 100 MCG/VILANTEROL 25 MCG INHALER INH SCH (08:44)
[2017-10-28] MEDS: VANCOMYCIN 500 MG VIAL (FOR ORAL USE ONLY) PO SCH ×4 (08:44→20:58)
[2017-10-28] MEDS: FLUTICASONE PROPIONATE 50 MCG/ACT 16 GM NASAL SPRAY EACH NARE SCH (08:45)
[2017-10-28] MEDS: SODIUM CHLORIDE 0.9% FLUSH 10 ML FLUSH IV FLUSH SCH ×2 (08:45→20:59)
[2017-10-28] MEDS: HEPARIN SODIUM - SQ 10,000 UNITS/ML VIAL SQ SCH ×2 (08:46→20:58)
[2017-10-28] MEDS ORDERED: POTASSIUM CHLORIDE 10 MEQ CONTROLLED RELEASE TAB PO ONE (09:00)
[2017-10-28] MEDS ORDERED: POTASSIUM CHLORIDE 20 MEQ PWD PACKET PO ONE (09:00)
--- NOTE | 2017-10-28 11:18 | HHI.PR ---
Subjective Remarks Hemoglobin has dropped to 8.1 today. Currently patient is tolerating pured heart healthy diet. No signs of active bleeding in the last 24 hours. Objective Vital Signs Date Time Temp Pulse Resp B/P (MAP) Pulse Ox O2 Delivery O2 Flow Rate FiO2 10/28/17 08:00 99.1 86 17 115/56 (75) 97 10/28/17 04:00 97.2 76 17 119/62 (81) 95 10/28/17 00:00 98.0 81 17 120/60 (80) 95 10/27/17 20:00 98.4 85 18 122/56 (78) 94 10/27/17 16:00 97.3 85 16 103/53 (70) 99 10/27/17 12:00 97.8 78 16 117/57 (77) 97 I/O 10/27/17 10/27/17 10/27/17 10/28/17 10/28/17 10/28/17 07:00 15:00 23:00 07:00 15:00 23:00 Intake Total 240 ml 700 ml 340 ml Output Total 200 ml 1250 ml 1200 ml Balance 40 ml -550 ml -860 ml Intake Oral 240 ml 700 ml 240 ml IV Total 100 ml Output Urine Total 200 ml 900 ml 1200 ml Stool Total 350 ml Bladder Scan Volume Amount 80 ml Result Diagram: 10/28/17 0334 10/28/17 0334 Objective Remarks GENERAL: NAD, A&Ox3 HEAD: Normocephalic. NECK: Supple, trachea midline. No lymphadenopathy. EYES: No scleral icterus. No injection or drainage. CARDIOVASCULAR: Regular rate and rhythm without murmurs, gallops, or rubs. RESPIRATORY: Breath sounds equal bilaterally. No accessory muscle use. GASTROINTESTINAL: Abdomen soft, non-tender, nondistended. MUSCULOSKELETAL: No cyanosis, or edema. SKIN: Warm and dry. NEURO: No focal neurological deficitis. A/P Assessment and Plan 87-year-old male admitted secondary to severe sepsis, C. difficile colitis, acute kidney injury. He is a long-term rehab facility and has severe dementia at baseline. Decline in hemoglobin level today. Further monitoring needed to ensure the patient will not need a transfusion prior to discharge. Anemia May be GI losses due to colitis Follow H/H Sepsis Resolved C. difficile colitis Continue oral vancomycin Continue Dificid GERD Esophageal stricture Dysphagia Nausea vomiting Currently improved Tolerating heart healthy diet Acute kidney injury Resolved Follow renal function Hyperlipidemia Continue present treatment Follow as an outpatient Hypertension Continue baseline treatment Follow blood pressures Adjust treatments as needed Right bundle branch block Peripheral artery disease Arthrosclerotic vascular disease Continue lisinopril Continue Lopressor Continue Plavix It is preferable that plavix is not discontinued, follow H/H for now Continue atorvastatin COPD Continue mucolytic's Continue bronchodilator History of prostate cancer Status post TURP Follows an outpatient Seizure disorder TIA history Follow clinically Continue Levetiracetam Continue Carbamazepine Dementia Supportive care Hypothyroidism continue Hormonal replacement DVT Prophylaxis On plavix No further upgrade in treatment due to bleed risks Discharge Planning Anticipate discharge once H/H is stable. Gt Meek MD October 28, 2017 11:18
[2017-10-28 12:00] VITALS: BP 160/72; PULSE 87; RESP 16; TEMP 98.5; O2SAT 98
[2017-10-28] MEDS: FREE WATER G-TUBE SCH ×2 (12:00→18:00)
[2017-10-28 16:00] VITALS: BP 105/53; PULSE 100; RESP 18; TEMP 97.9; O2SAT 93
[2017-10-28 20:00] VITALS: BP 132/65; PULSE 91; RESP 18; TEMP 98.6; O2SAT 98
[2017-10-28] MEDS: MONTELUKAST SODIUM 10 MG TAB PO SCH (20:59)
[2017-10-28] MEDS: ATORVASTATIN 20 MG TAB PO SCH (20:59)
[2017-10-29] VITALS (11 sets, daily range): BP systolic 103–140; BP diastolic 54–68; PULSE 75–94; RESP 15–20; TEMP 98.2–100.1; O2SAT 91–100
[2017-10-29] MEDS: METOPROLOL TARTRATE 25 MG TAB PO SCH ×4 (00:37→17:48)
[2017-10-29 03:48] LABS: AUTOMATED NEUTROPHIL # 12.9 TH/MM3 (1.8-7.7); BASOPHIL # 0.1 TH/MM3 (0-0.2); BASOPHIL % 0.8 % (0.0-2.0); EOSINOPHIL # 0.1 TH/MM3 (0-0.4); EOSINOPHIL % 0.6 % (0.0-4.0); HEMATOCRIT 22.7 % (39.0-51.0); HEMOGLOBIN 7.8 GM/DL (13.0-17.0); LYMPH % 8.9 % (9.0-44.0); LYMPHOCYTE # 1.5 TH/MM3 (1.0-4.8); MEAN CORPUSCULAR HEMOGLOBIN 31.8 PG (27.0-34.0); MEAN CORPUSCULAR HGB CONC 34.2 % (32.0-36.0); MEAN PLATELET VOLUME 7.8 FL (7.0-11.0); MONO % 12.9 % (0.0-8.0); MONOCYTE # 2.2 TH/MM3 (0-0.9); NEUT % 76.8 % (16.0-70.0); PLATELET COUNT 345 TH/MM3 (150-450); RED BLOOD COUNT 2.44 MIL/MM3 (4.50-5.90); RED CELL DISTRIBUTION WIDTH 14.4 % (11.6-17.2); WHITE BLOOD COUNT 16.8 TH/MM3 (4.0-11.0)
[2017-10-29 04:17] LABS: ALBUMIN 1.4 GM/DL (3.4-5.0); BICARBONATE 27.8 MEQ/L (21.0-32.0); CALCIUM 7.1 MG/DL (8.5-10.1); CALCIUM-PROTEIN CORRECTED 8.3 MG/DL (8.5-10.1); CREATININE 0.85 MG/DL (0.60-1.30); TOTAL BILIRUBIN ADULT 0.2 MG/DL (0.2-1.0); TOTAL PROTEIN 4.9 GM/DL (6.4-8.2)
[2017-10-29] MEDS: LEVOTHYROXINE SODIUM 50 MCG TAB PO SCH (04:36)
[2017-10-29] MEDS: FREE WATER G-TUBE SCH ×4 (04:47→18:00)
[2017-10-29 05:11] LABS: BANDS 4 % (0-6); BASOPHILS 2 % (0-2); LYMPHOCYTES 8 % (9-44); METAMYELOCYTES 2 % (0-1); MONOCYTES 12 % (0-8); MYELOCYTES 2 % (0-0); NEUTROPHIL # MANUAL DIFF 12.9 TH/MM3 (1.8-7.7); POLYS (SEG NEUTROPHILS) 69 % (16-70)
[2017-10-29] MEDS: SODIUM CHLORIDE 0.9% FLUSH 10 ML FLUSH IV FLUSH SCH ×2 (09:46→19:25)
[2017-10-29] MEDS: HEPARIN SODIUM - SQ 10,000 UNITS/ML VIAL SQ SCH ×2 (09:46→19:24)
[2017-10-29] MEDS: levETIRAcetam INJ 100 ML IV SCH ×2 (09:46→19:26)
[2017-10-29] MEDS: LACTOBACILLUS ACIDOPHILUS TAB PO SCH ×3 (09:46→17:47)
[2017-10-29] MEDS: FIDAXOMICIN 200 MG TAB PO SCH (09:47)
[2017-10-29] MEDS: CLOPIDOGREL 75 MG TAB PO SCH (09:47)
[2017-10-29] MEDS: carBAMazepine 200 MG TAB PO SCH ×2 (09:47→19:25)
[2017-10-29] MEDS: PANTOPRAZOLE SOD 40 MG DELAYED RELEASE TAB PO SCH (09:47)
[2017-10-29] MEDS: LISINOPRIL 5 MG TAB PO SCH (09:47)
[2017-10-29] MEDS: FERROUS SULFATE 325 MG (65 MG ELEMENTAL IRON) TAB PO SCH ×3 (09:47→17:47)
[2017-10-29] MEDS: VANCOMYCIN 500 MG VIAL (FOR ORAL USE ONLY) PO SCH ×4 (09:48→19:30)
[2017-10-29] MEDS ORDERED: SODIUM CHLOR 0.9% 250 ML INJ 250 ML IV ONE (12:00)
[2017-10-29] MEDS ORDERED: SODIUM CHLOR 0.45% 500 ML INJ 500 ML IV ONE (12:15)
--- NOTE | 2017-10-29 12:20 | HHI.PR ---
Subjective Remarks Nursing denies any deterioration since last night. Patient himself says he feels okay. Objective Vital Signs Date Time Temp Pulse Resp B/P (MAP) Pulse Ox O2 Delivery O2 Flow Rate FiO2 10/29/17 08:00 98.4 75 17 119/58 (78) 91 10/29/17 04:00 98.2 84 18 117/68 (84) 96 10/29/17 00:00 98.9 91 18 118/58 (78) 97 10/29/17 00:00 88 10/28/17 20:00 98.6 91 18 132/65 (87) 98 10/28/17 16:00 97.9 100 18 105/53 (70) 93 I/O 10/28/17 10/28/17 10/28/17 10/29/17 10/29/17 10/29/17 07:00 15:00 23:00 07:00 15:00 23:00 Intake Total 340 ml 100 ml 175 ml 240 ml Output Total 1200 ml 175 ml 550 ml Balance -860 ml 100 ml 0 ml -310 ml Intake Oral 240 ml 175 ml 240 ml IV Total 100 ml 100 ml Output Urine Total 1200 ml 175 ml 550 ml # Bowel Movements 1 2 Result Diagram: 10/29/17 0315 10/29/17314 Objective Remarks Lying in bed sleeping, easily awoken Appears pale, when awoken is in no acute distress A/P Assessment and Plan 87 y/o Male with Severe Dementia, admitted with C Diff Colitis, Severe sepsis, acute kidney Injury, he will need [facility] at this moment DNR but continue with Aggressive goals. Anemia Likely due to frequent venipunctures, acute blood loss clinically resolved. Ordering 2 units of blood given the patient's history of coronary artery disease , recheck in a.m. C. difficile colitis Continue oral vancomycin Continue Dificid GERD Esophageal stricture Dysphagia Nausea vomiting Currently improved Tolerating heart healthy diet Hypernatremia Likely due to poor p.o. intake, will attempt to increase intake may benefit from IV fluids Hyperlipidemia Continue present treatment Follow as an outpatient Hypertension Continue baseline treatment Follow blood pressures Adjust treatments as needed Right bundle branch block Peripheral artery disease Arthrosclerotic vascular disease Continue lisinopril Continue Lopressor Continue Plavix It is preferable that plavix is not discontinued, follow H/H for now Continue atorvastatin COPD Continue mucolytic's Continue bronchodilator History of prostate cancer Status post TURP Follows an outpatient Seizure disorder TIA history Follow clinically Continue Levetiracetam Continue Carbamazepine Dementia Supportive care Hypothyroidism continue Hormonal replacement DVT Prophylaxis On plavix No further upgrade in treatment due to bleed risks Discharge Planning Anticipate discharge once H/H is stable in a.m. Brad Tang MD October 29, 2017 12:20
[2017-10-29] MEDS: FLUTICASONE 100 MCG/VILANTEROL 25 MCG INHALER INH SCH (15:23)
[2017-10-29] MEDS: FLUTICASONE PROPIONATE 50 MCG/ACT 16 GM NASAL SPRAY EACH NARE SCH (15:24)
[2017-10-29] MEDS: SODIUM CHLOR 0.45% 1000 ML INJ 1,000 ML IV SCH (15:25)
[2017-10-29] MEDS: ATORVASTATIN 20 MG TAB PO SCH (19:25)
[2017-10-29] MEDS: MONTELUKAST SODIUM 10 MG TAB PO SCH (19:25)
[2017-10-30] VITALS: BP 147/63; PULSE 87; RESP 20; TEMP 98.6; O2SAT 99
[2017-10-30] MEDS: METOPROLOL TARTRATE 25 MG TAB PO SCH ×3 (00:24→12:05)
[2017-10-30 01:00] VITALS: BP 129/71; PULSE 93; RESP 20; TEMP 98.4; O2SAT 91
[2017-10-30 04:00] VITALS: BP 103/58; PULSE 88; RESP 20; TEMP 98.6; O2SAT 98
[2017-10-30] MEDS: LEVOTHYROXINE SODIUM 50 MCG TAB PO SCH (05:47)
[2017-10-30] MEDS: FREE WATER G-TUBE SCH ×3 (05:51→11:49)
[2017-10-30 06:12] VITALS: PULSE 91
[2017-10-30 07:29] LABS: HEMATOCRIT 32.1 % (39.0-51.0); MEAN CELL VOLUME 90.4 FL (80.0-100.0); MEAN CORPUSCULAR HEMOGLOBIN 31.1 PG (27.0-34.0); MEAN CORPUSCULAR HGB CONC 34.4 % (32.0-36.0); MEAN PLATELET VOLUME 7.8 FL (7.0-11.0); PLATELET COUNT 291 TH/MM3 (150-450); RED BLOOD COUNT 3.55 MIL/MM3 (4.50-5.90); RED CELL DISTRIBUTION WIDTH 15.9 % (11.6-17.2)
[2017-10-30 07:51] LABS: BICARBONATE 28.2 MEQ/L (21.0-32.0); CALCIUM 6.9 MG/DL (8.5-10.1); CREATININE 0.75 MG/DL (0.60-1.30)
[2017-10-30 08:00] VITALS: BP 124/58; PULSE 69; PULSE 84; RESP 18; TEMP 98.8; O2SAT 97
[2017-10-30] MEDS: PANTOPRAZOLE SOD 40 MG DELAYED RELEASE TAB PO SCH (08:50)
[2017-10-30] MEDS: CLOPIDOGREL 75 MG TAB PO SCH (08:51)
[2017-10-30] MEDS: FERROUS SULFATE 325 MG (65 MG ELEMENTAL IRON) TAB PO SCH ×2 (08:51→12:05)
[2017-10-30] MEDS: VANCOMYCIN 500 MG VIAL (FOR ORAL USE ONLY) PO SCH ×2 (08:51→12:05)
[2017-10-30] MEDS: carBAMazepine 200 MG TAB PO SCH (08:51)
[2017-10-30] MEDS: LISINOPRIL 5 MG TAB PO SCH (08:51)
[2017-10-30] MEDS: SODIUM CHLORIDE 0.9% FLUSH 10 ML FLUSH IV FLUSH SCH (08:52)
[2017-10-30] MEDS: FLUTICASONE PROPIONATE 50 MCG/ACT 16 GM NASAL SPRAY EACH NARE SCH (08:52)
[2017-10-30] MEDS: HEPARIN SODIUM - SQ 10,000 UNITS/ML VIAL SQ SCH (08:52)
[2017-10-30] MEDS: levETIRAcetam INJ 100 ML IV SCH (08:52)
[2017-10-30] MEDS: FLUTICASONE 100 MCG/VILANTEROL 25 MCG INHALER INH SCH (08:52)
[2017-10-30] MEDS: LACTOBACILLUS ACIDOPHILUS TAB PO SCH ×2 (09:02→12:05)
--- NOTE | 2017-10-30 10:56 | HHI.PR ---
Addendum to Inpatient Note Addendum Reason: Additional Documentation Additional Information Recd call from patient clinically ready for discharge to rehab. Recommend Vanco taper as follows: Vanco 250 mg po 4 times per day for 10 days then Vanco 250 mg po 3 times per day for 10 days then Vanco 250 mg po bid for 10 days then Vanco 125 mg po bid for 10 days then Vanco 125 mg po daily for 10 days then stop. Will sign off please call back if any change in clinical condition or questions. Purvi Grimaldo MD October 30, 2017 10:56
--- NOTE | 2017-10-30 11:45 | HHI.DCPOC ---
Discharge Care Plan Diagnosis: (1) Clostridium difficile colitis (2) Acute kidney injury (3) Dementia Goals to Promote Your Health * To prevent worsening of your condition and complications * To maintain your health at the optimal level Directions to Meet Your Goals Take your medications as prescribed Follow your dietary instruction Follow activity as directed Keep your appointments as scheduled Take your immunizations and boosters as scheduled If your symptoms worsen call your PCP, if no PCP go to Urgent Care Center or Emergency Room Smoking is Dangerous to Your Health. Avoid second hand smoke Call the 24-hour hour crisis hotline for domestic abuse at Brad Tang MD October 30, 2017 11:45
--- NOTE | 2017-10-30 11:51 | HHI.DS ---
Discharge Summary Admission Date October 17, 2017 at 14:03 Discharge Date: October 30, 2017 Admitting Diagnosis altered mental status, c diff colitis (1) Clostridium difficile colitis ICD Code: A04.72 - Enterocolitis due to Clostridium difficile, not specified as recurrent Procedures NG tube placement Brief History - From Admission 87-year-old male with history of dementia, arthritis, prostate cancer, HTN, HLD , TIA, COPD, GERD, seizures, presents to the ED after being sent from [facility] due to worsening altered mental status and diarrhea. The patient is an extremely poor historian, oriented to self only, and therefore most of the history obtained from the EMR. The patient does explain that he has not quite felt like himself lately. He has difficulty further elaborating on this. He does recall having some diarrhea but cannot quantify or describe the stool. He denies any abdominal pain but reports feeling more bloated than usual. Denies any fever/chills, nausea/vomiting, or urinary complaints. It is reported that the patient is incontinent at baseline. RN in the ER described the stool was dark and loose, but not watery diarrhea and no bright red blood. The patient otherwise denies any headache, lightheadedness, congestion, sore throat, cough, chest pain, or shortness of breath. He states his legs are always a little bit swollen, but denies any calf pain. Denies any other medical complaints at this time. CBC/BMP: 10/30/17 0602 10/30/17 0602 Significant Findings Laboratory Tests Test 10/28/17 03:34 10/29/17 03:15 10/30/17 06:02 White Blood Count 18.1 TH/MM3 (4.0-11.0) 16.8 TH/MM3 (4.0-11.0) 16.0 TH/MM3 (4.0-11.0) Red Blood Count 2.57 MIL/MM3 (4.50-5.90) 2.44 MIL/MM3 (4.50-5.90) 3.55 MIL/MM3 (4.50-5.90) Hemoglobin 8.1 GM/DL (13.0-17.0) 7.8 GM/DL (13.0-17.0) 11.0 GM/DL (13.0-17.0) Hematocrit 24.0 % (39.0-51.0) 22.7 % (39.0-51.0) 32.1 % (39.0-51.0) Neutrophils (%) (Auto) 77.6 % (16.0-70.0) 76.8 % (16.0-70.0) Lymphocytes (%) (Auto) 7.3 % (9.0-44.0) 8.9 % (9.0-44.0) Monocytes (%) (Auto) 13.9 % (0.0-8.0) 12.9 % (0.0-8.0) Neutrophils # (Auto) 14.0 TH/MM3 (1.8-7.7) 12.9 TH/MM3 (1.8-7.7) Monocytes # (Auto) 2.5 TH/MM3 (0-0.9) 2.2 TH/MM3 (0-0.9) Neutrophils % (Manual) 84 % (16-70) Lymphocytes % 3 % (9-44) 8 % (9-44) Neutrophils # (Manual) 17.0 TH/MM3 (1.8-7.7) 12.9 TH/MM3 (1.8-7.7) Metamyelocytes 3 % (0-1) 2 % (0-1) Myelocytes 1 % (0-0) 2 % (0-0) Basophilic Stippling FAINT (NORMAL) Ovalocytes 1+ (NORMAL) Random Glucose 112 MG/DL (74-106) 113 MG/DL (74-106) 108 MG/DL (74-106) Total Protein 4.8 GM/DL (6.4-8.2) 4.9 GM/DL (6.4-8.2) 5.0 GM/DL (6.4-8.2) Albumin 1.5 GM/DL (3.4-5.0) 1.4 GM/DL (3.4-5.0) Calcium Level 7.2 MG/DL (8.5-10.1) 7.1 MG/DL (8.5-10.1) 6.9 MG/DL (8.5-10.1) Aspartate Amino Transf (AST/SGOT) 43 U/L (15-37) 62 U/L (15-37) Sodium Level 150 MEQ/L (136-145) 150 MEQ/L (136-145) 149 MEQ/L (136-145) Potassium Level 3.4 MEQ/L (3.5-5.1) Chloride Level 114 MEQ/L (98-107) 117 MEQ/L (98-107) 114 MEQ/L (98-107) Estimat Glomerular Filtration Rate 78 ML/MIN (>89) 85 ML/MIN (>89) Monocytes % 12 % (0-8) Protein Corrected Calcium 8.3 MG/DL (8.5-10.1) 8.0 MG/DL (8.5-10.1) Imaging Last Impressions Chest X-Ray 10/27/17 0000 Signed Impressions: CONCLUSION: Cardiomegaly with basilar airspace disease and small effusions. Findings most c haracteristic of mild congestive heart failure. Abdomen X-Ray 10/25/17 0000 Signed Impressions: CONCLUSION: Nonspecific KUB. Extremely dilated bowel is not seen. There is hazy density in the abdomen which can be suggestive of ascites. Abdomen/Pelvis CT 10/19/17 2042 Signed Impressions: Service Date/Time: October 22:34 - CONCLUSION: 1. Pancolitis without obstruction, perforation, or abscess. 2. Small volume ascites. Manish Jenkins Jr., MD Renal Ultrasound 10/19/17 0000 Signed Impressions: Service Date/Time: October 15:24 - CONCLUSION: 1. Increased echogenicity of the renal parenchyma bilaterally. This can be seen with chronic medical renal disease. 2. No hydronephrosis. Keo Trevizo MD Head CT 10/17/17 1042 Signed Impressions: Service Date/Time: Tuesday, October 17, 2017 11:07 - CONCLUSION: 1. No acute intracranial abnormality or significant interval change. Kwesi Humphreys MD PE at Discharge Abdomen soft, bowel sounds are active, nontender, nondistended Hospital Course Patient was initially admitted to the ICU and started on IV fluids and eventually needing vasopressors for septic shock. Started on antibiotics for pancolitis, found to have C. difficile, infectious disease helped comanage antibiotics including vancomycin and Dificid. Gastroenterology was consulted for NG tube placement. Eventually patient was able to tolerate p.o. intake and had his NG tube withdrawn. Was cleared to proceed with a pured honey thick diet. Had been transfused 2 units of blood for borderline low anemia which is likely due to frequent venipunctures as opposed to acute GI blood loss since his Hemoccult was negative. Patient has met maximal benefit from hospitalization and is clinically stable for discharge to a shelter facility. Will be discharged on a tapering regimen of vancomycin. Vanco 250 mg po 4 times per day for 10 days then Vanco 250 mg po 3 times per day for 10 days then Vanco 250 mg po bid for 10 days then Vanco 125 mg po bid for 10 days then Vanco 125 mg po daily for 10 days then stop. Pt Condition on Discharge: Stable Discharge Disposition: Discharge to SNF Discharge Time: <= 30 minutes Discharge Instructions Follow up Referrals: PCP Follow-up - 1 Week Brad Tang MD October 30, 2017 11:51
[2017-10-30] MEDS ORDERED: VANC125C3 PO (11:59)
[2017-10-30 12:00] VITALS: BP 106/53; PULSE 78; PULSE 82; RESP 19; TEMP 97.7; O2SAT 97
[2017-10-30] MEDS: SODIUM CHLOR 0.45% 1000 ML INJ 1,000 ML IV SCH (12:05)
== END 2017-10-30 13:59 | DRG 871 ==
LOC: NEPE 10:01 → NEDA 14:03 → N05B 16:25 → HIME 10-19 21:50 → N07A 10-25 23:09
PROVIDERS: ADMIT Hospitalist; ATTEND Hospitalist
PROC: 0T9B70Z Drainage of Bladder with Drainage Device, Via Natural or Artificial Opening (ICD-10-PCS; 2017-10-19)
PROC: 0DH68UZ Insertion of Feeding Device into Stomach, Via Natural or Artificial Opening Endoscopic (ICD-10-PCS; principal; 2017-10-22 11:33)
PROC: 30233N1 Transfusion of Nonautologous Red Blood Cells into Peripheral Vein, Percutaneous Approach (ICD-10-PCS; 2017-10-29)
DX: A41.9 Sepsis, unspecified organism (principal); G93.41 Metabolic encephalopathy; R65.21 Severe sepsis with septic shock; N17.9 Acute kidney failure, unspecified; A04.72 Enterocolitis due to Clostridium difficile, not specified as recurrent; Q04.0 Congenital malformations of corpus callosum; I13.0 Hypertensive heart and chronic kidney disease with heart failure and stage 1 through stage 4 chronic kidney disease, or unspecified chronic kidney disease; G40.209 Localization-related (focal) (partial) symptomatic epilepsy and epileptic syndromes with complex partial seizures, not intractable, without status epilepticus; E87.2 Acidosis; E87.0 Hyperosmolality and hypernatremia; I45.2 Bifascicular block; Q04.6 Congenital cerebral cysts; K56.7 Ileus, unspecified; N39.0 Urinary tract infection, site not specified; D62 Acute posthemorrhagic anemia; I50.9 Heart failure, unspecified; J44.9 Chronic obstructive pulmonary disease, unspecified; F03.90 Unspecified dementia, unspecified severity, without behavioral disturbance, psychotic disturbance, mood disturbance, and anxiety; G89.29 Other chronic pain; M54.2 Cervicalgia; M19.90 Unspecified osteoarthritis, unspecified site; E78.5 Hyperlipidemia, unspecified; H91.90 Unspecified hearing loss, unspecified ear; K21.9 Gastro-esophageal reflux disease without esophagitis; R32 Unspecified urinary incontinence; N18.9 Chronic kidney disease, unspecified; K44.9 Diaphragmatic hernia without obstruction or gangrene; D72.823 Leukemoid reaction; E86.0 Dehydration; E03.9 Hypothyroidism, unspecified; E83.39 Other disorders of phosphorus metabolism; E87.6 Hypokalemia; I25.10 Atherosclerotic heart disease of native coronary artery without angina pectoris; Z86.14 Personal history of Methicillin resistant Staphylococcus aureus infection; Z85.828 Personal history of other malignant neoplasm of skin; Z79.02 Long term (current) use of antithrombotics/antiplatelets; Z85.46 Personal history of malignant neoplasm of prostate; Z79.899 Other long term (current) drug therapy; Z86.73 Personal history of transient ischemic attack (TIA), and cerebral infarction without residual deficits; Z87.891 Personal history of nicotine dependence; Z82.49 Family history of ischemic heart disease and other diseases of the circulatory system; Z80.9 Family history of malignant neoplasm, unspecified; I73.9 Peripheral vascular disease, unspecified; I70.90 Unspecified atherosclerosis; F32.9 Major depressive disorder, single episode, unspecified; D64.9 Anemia, unspecified; Z51.5 Encounter for palliative care; G62.9 Polyneuropathy, unspecified; J30.2 Other seasonal allergic rhinitis; K43.9 Ventral hernia without obstruction or gangrene; R13.10 Dysphagia, unspecified; K29.60 Other gastritis without bleeding; Z90.79 Acquired absence of other genital organ(s); Z66 Do not resuscitate; K22.2 Esophageal obstruction; F41.9 Anxiety disorder, unspecified
CPT/HCPCS: 36430; 36600; 70450; 71045; 74018; 74176; 74177; 76775; 80048; 80053; 80061; 80069; 80076; 80156; 80177; 80202; 81001; 82140; 82150; 82272; 82306; 82533; 82550; 82805; 83605; 83615; 83690; 83735; 83880; 84100; 84155; 84443; 84484; 85007; 85014; 85018; 85027; 85384; 85610; 85730; 86850; 86900; 86901; 86920; 87040; 87077; 87086; 87186; 87493; 87641; 93005; 94640; 94664; 99285; J0131; J0360; J0610; J1100; J1160; J1644; J1940; J1953; J2060; J2248; J2370; J3370; J3480; J7030; J7050; J7060; J7070; J7120; J7613; P9016; P9612; Q9963; Q9967

== ENCOUNTER 2018-01-02 13:52 | Inpatient (IN) ==
--- NOTE | 2018-01-02 14:12 | ED ---
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 The last time he exhibited these symptoms he had C. difficile colitis and was septic. I was back in October, the patient is febrile 103, was hypotensive on the field with a systolic blood pressure of 70... Per caregiver will also reproduce paperwork the patient is a DNR Timing confirmed by: caregiver Severity: moderate Consistency of symptoms: getting worse Associated symptoms: denies other symptoms Treatments prior to arrival: IV fluid (Per EMS blood pressure improved after 500 cc IV fluid bolus) Related Data Allergies Allergy/AdvReac Type Severity Reaction Status Date / Time amoxicillin Allergy Severe Shortness Unverified 10/17/17 10:21 of Breath clavulanic acid Allergy Severe Shortness Unverified 10/17/17 10:21 of Breath imipramine Allergy Severe SEIZURE Unverified 10/17/17 10:21 primidone Allergy Severe SEIZURE Unverified 10/17/17 10:21 Sulfa (Sulfonamide Allergy Unknown Rash Unverified 10/17/17 10:21 Antibiotics) Review of Systems Except as stated in HPI: all other systems reviewed are negative PMFSH History History Provided By: Patient Social History Social History Substance History: Unable to Obtain Smoking Status: Unknown if ever smoked How Often Do You Have a Drink Containing Alcohol: Unable to Obtain Exam Narrative Exam Narrative: GENERAL: elderly male withdrawn and not following commands SKIN: Warm and dry. HEAD: Atraumatic. Normocephalic. EYES: Pupils equal and round. No scleral icterus. No injection or drainage. ENT: No nasal bleeding or discharge. dry oral Mucous membranes NECK: Trachea midline. No JVD. CARDIOVASCULAR: Regular rate and rhythm. no rubs or gallops RESPIRATORY: No accessory muscle use. Clear to auscultation. Breath sounds equal bilaterally. GASTROINTESTINAL: Abdomen appears soft, non-tender, nondistended. No rebound or guarding...diarrhea movement during examination MUSCULOSKELETAL: Extremities without clubbing, cyanosis, or edema. No obvious deformities. NEUROLOGICAL: GCS 10, confused, 3 mm pupils equal round reactive to light, lethargic Course Initial Documented Vital Signs Temperature 103.5 F H 01/02/18 13:55 Pulse Rate 91 H 01/02/18 13:55 Respiratory Rate 18 01/02/18 13:55 Pulse Oximetry 93 L 01/02/18 13:55 Last Documented Vital Signs Temperature 103.5 F H 01/02/18 14:14 Pulse Rate 90 01/02/18 14:44 Respiratory Rate 16 01/02/18 14:14 Blood Pressure 72/35 L 01/02/18 14:14 Pulse Oximetry 97 01/02/18 14:44 Critical Care Time Critical Care Time: Yes Total Critical Care Time: 60 Attestation: Aggregate critical care time was 60 minutes. Time to perform other separately billable procedures was not included in the critical care time. My time did not include minutes spent treating any other patients simultaneously or on activities that did not directly contribute to the patient's treatment. The services I provided to this patient were to treat and/or prevent clinically significant deterioration that could result in: [Worsening septic shock and ] I provided critical care services requiring my management, as noted below: Chart data review, documentation time, medication orders and management, vital sign assessments/reviewing monitor data, ordering and reviewing lab tests, ordering and interpreting/reviewing x-rays and diagnostic studies, care of the patient and discussion of the patient with the admitting physicians. Medical Decision Making MDM Narrative Medical decision making narrative: Suspect C. difficile colitis as the source of sepsis, patient has fever 103, blood pressure systolic in the 70s, diarrhea was noted in the department, patient will be given IV fluid boluses, as well as Flagyl and will be admitted CBC shows leukocytosis of 36,000 with 84% neutrophilia, mild 10/33 anemia, normal platelet count Lab Data Lab results reviewed: Yes I reviewed the patient's lab results. Result diagrams: 01/02/18 14:01 01/02/18 14:01 Lab Results 01/02/18 01/02/18 01/02/18 Range/Units 14:01 14:01 14:01 WBC 36.5 H (4.0-11.0) th/mm3 RBC 3.54 L (4.50-5.90) mil/mm3 Hgb 10.8 L (13.0-17.0) gm/dL Hct 33.3 L (39.0-51.0) % MCV 94.1 (80.0-100.0) fL MCH 30.5 (27.0-34.0) pg MCHC 32.5 (32.0-36.0) % RDW 15.4 (11.6-17.2) % Plt Count 319 (150-450) th/mm3 MPV 9.0 (7.0-11.0) fL Prelim Diff (Auto) Slide review pending Neut % (Auto) 83.7 H (16.0-70.0) % Lymph % (Auto) 7.4 L (9.0-44.0) % [place] % (Auto) 8.8 H (0.0-8.0) % Eos % (Auto) 0.0 (0.0-4.0) % Baso % (Auto) 0.1 (0.0-2.0) % Neut # (Auto) 30.6 H (1.8-7.7) th/mm3 Lymph # (Auto) 2.7 (1.0-4.8) th/mm3 [place] # (Auto) 3.2 H (0.0-0.9) th/mm3 Eos # (Auto) 0.0 (0.0-0.4) th/mm3 Baso # (Auto) 0.0 (0.0-0.2) th/mm3 Differential Comment . Sodium 142 (136-145) meq/L Potassium 4.2 (3.5-5.1) meq/L Chloride 108 H (98-107) meq/L Carbon Dioxide 24.5 (21.0-32.0) meq/L Anion Gap 10 (5-15) meq/L BUN 29 H (7-18) mg/dL Creatinine 1.89 H (0.60-1.30) mg/dL Estimated GFR 34 L (>89) mL/min Random Glucose 149 H (74-106) mg/dL Lactic Acid (0.4-2.0) mmol/L Calcium 7.6 L (8.5-10.1) mg/dL Total Bilirubin 0.4 (0.2-1.0) mg/dL AST 24 (15-37) U/L ALT 11 L (12-78) U/L Alkaline Phosphatase 76 (45-117) U/L Ammonia (11-32) mcmol/L Troponin I 0.13 H (0.02-0.05) ng/mL Total Protein 6.8 (6.4-8.2) g/dL Albumin 2.2 L (3.4-5.0) g/dL TSH 5.350 H (0.358-3.740) uIU/mL Urine Color (Yellw/Straw) Urine Clarity (Clear) Urine pH (5.0-8.5) Ur Specific [place] (1.002-1.035) Urine Protein (Neg-Trace) mg/dL Urine Glucose (UA) (Negative) mg/dL Urine Ketones (Negative) mg/dL Urine Occult Blood (Negative) Urine Nitrate (Negative) Urine Bilirubin (Negative) Urine Urobilinogen (Less than 2) mg/dL Ur Leukocyte Esterase (Negative) Urine RBC (0-3) /hpf Urine WBC (0-5) /hpf Urine WBC Clumps (None) Urine Bacteria (None) /hpf Micro UA Comment Urine Culture Comments Salicylates Less than 1.7 L (2.8-20.0) mg/dL Acetaminophen (10.0-30.0) mcg/mL Serum Alcohol Less than 3 (0-5) mg/dL 01/02/18 01/02/18 01/02/18 Range/Units 14:01 14:01 14:01 WBC (4.0-11.0) th/mm3 RBC (4.50-5.90) mil/mm3 Hgb (13.0-17.0) gm/dL Hct (39.0-51.0) % MCV (80.0-100.0) fL MCH (27.0-34.0) pg MCHC (32.0-36.0) % RDW (11.6-17.2) % Plt Count (150-450) th/mm3 MPV (7.0-11.0) fL Prelim Diff (Auto) Neut % (Auto) (16.0-70.0) % Lymph % (Auto) (9.0-44.0) % [place] % (Auto) (0.0-8.0) % Eos % (Auto) (0.0-4.0) % Baso % (Auto) (0.0-2.0) % Neut # (Auto) (1.8-7.7) th/mm3 Lymph # (Auto) (1.0-4.8) th/mm3 [place] # (Auto) (0.0-0.9) th/mm3 Eos # (Auto) (0.0-0.4) th/mm3 Baso # (Auto) (0.0-0.2) th/mm3 Differential Comment Sodium (136-145) meq/L Potassium (3.5-5.1) meq/L Chloride (98-107) meq/L Carbon Dioxide (21.0-32.0) meq/L Anion Gap (5-15) meq/L BUN (7-18) mg/dL Creatinine (0.60-1.30) mg/dL Estimated GFR (>89) mL/min Random Glucose (74-106) mg/dL Lactic Acid 2.5 H (0.4-2.0) mmol/L Calcium (8.5-10.1) mg/dL Total Bilirubin (0.2-1.0) mg/dL AST (15-37) U/L ALT (12-78) U/L Alkaline Phosphatase (45-117) U/L Ammonia 21 (11-32) mcmol/L Troponin I (0.02-0.05) ng/mL Total Protein (6.4-8.2) g/dL Albumin (3.4-5.0) g/dL TSH (0.358-3.740) uIU/mL Urine Color (Yellw/Straw) Urine Clarity (Clear) Urine pH (5.0-8.5) Ur Specific [place] (1.002-1.035) Urine Protein (Neg-Trace) mg/dL Urine Glucose (UA) (Negative) mg/dL Urine Ketones (Negative) mg/dL Urine Occult Blood (Negative) Urine Nitrate (Negative) Urine Bilirubin (Negative) Urine Urobilinogen (Less than 2) mg/dL Ur Leukocyte Esterase (Negative) Urine RBC (0-3) /hpf Urine WBC (0-5) /hpf Urine WBC Clumps (None) Urine Bacteria (None) /hpf Micro UA Comment Urine Culture Comments Salicylates (2.8-20.0) mg/dL Acetaminophen Less than 2.0 L (10.0-30.0) mcg/mL Serum Alcohol (0-5) mg/dL 01/02/18 Range/Units 14:30 WBC (4.0-11.0) th/mm3 RBC (4.50-5.90) mil/mm3 Hgb (13.0-17.0) gm/dL Hct (39.0-51.0) % MCV (80.0-100.0) fL MCH (27.0-34.0) pg MCHC (32.0-36.0) % RDW (11.6-17.2) % Plt Count (150-450) th/mm3 MPV (7.0-11.0) fL Prelim Diff (Auto) Neut % (Auto) (16.0-70.0) % Lymph % (Auto) (9.0-44.0) % [place] % (Auto) (0.0-8.0) % Eos % (Auto) (0.0-4.0) % Baso % (Auto) (0.0-2.0) % Neut # (Auto) (1.8-7.7) th/mm3 Lymph # (Auto) (1.0-4.8) th/mm3 [place] # (Auto) (0.0-0.9) th/mm3 Eos # (Auto) (0.0-0.4) th/mm3 Baso # (Auto) (0.0-0.2) th/mm3 Differential Comment Sodium (136-145) meq/L Potassium (3.5-5.1) meq/L Chloride (98-107) meq/L Carbon Dioxide (21.0-32.0) meq/L Anion Gap (5-15) meq/L BUN (7-18) mg/dL Creatinine (0.60-1.30) mg/dL Estimated GFR (>89) mL/min Random Glucose (74-106) mg/dL Lactic Acid (0.4-2.0) mmol/L Calcium (8.5-10.1) mg/dL Total Bilirubin (0.2-1.0) mg/dL AST (15-37) U/L ALT (12-78) U/L Alkaline Phosphatase (45-117) U/L Ammonia (11-32) mcmol/L Troponin I (0.02-0.05) ng/mL Total Protein (6.4-8.2) g/dL Albumin (3.4-5.0) g/dL TSH (0.358-3.740) uIU/mL Urine Color [place] (Yellw/Straw) Urine Clarity Cloudy H (Clear) Urine pH 5.0 (5.0-8.5) Ur Specific [place] 1.017 (1.002-1.035) Urine Protein Negative (Neg-Trace) mg/dL Urine Glucose (UA) Negative (Negative) mg/dL Urine Ketones Negative (Negative) mg/dL Urine Occult Blood Small H (Negative) Urine Nitrate Negative (Negative) Urine Bilirubin Negative (Negative) Urine Urobilinogen Less than 2 (Less than 2) mg/dL Ur Leukocyte Esterase Large H (Negative) Urine RBC 1 (0-3) /hpf Urine WBC 67 H (0-5) /hpf Urine WBC Clumps Moderate H (None) Urine Bacteria Occasional H (None) /hpf Micro UA Comment Cath-culture ind Urine Culture Comments Cath-cult indicated Salicylates (2.8-20.0) mg/dL Acetaminophen (10.0-30.0) mcg/mL Serum Alcohol (0-5) mg/dL Imaging Data Radiologist's impression: Head CT 01/02/18 13:58 CONCLUSION: 1. Stable appearance of the brain. . Discharge Plan Discharge Disposition Patient Disposition: 30 Still Patient Discharge Condition Condition: Fair Discharge Details Diagnosis: Septic shock, Acute UTI, Diarrhea Physicians Team ED Provider: Shankar Louis Primary Care Provider: Julio Ambrocio V Discharge Interventions Interventions: Vital Signs Last Done: 01/02/18 14:14 Status ED Status: With Doctor
[2018-01-02 14:34] LABS: Baso % (Auto) 0.1 % (0.0-2.0); Hematocrit 33.3 % (39.0-51.0); Hemoglobin 10.8 gm/dL (13.0-17.0); Lymph # (Auto) 2.7 th/mm3 (1.0-4.8); Lymph % (Auto) 7.4 % (9.0-44.0); Mean Corpuscular HGB Conc 32.5 % (32.0-36.0); Mean Corpuscular Hemoglobin 30.5 pg (27.0-34.0); Mean Corpuscular Volume 94.1 fL (80.0-100.0); Mono # (Auto) 3.2 th/mm3 (0.0-0.9); Mono % (Auto) 8.8 % (0.0-8.0); Neut # (Auto) 30.6 th/mm3 (1.8-7.7); Neut % (Auto) 83.7 % (16.0-70.0); Platelet Count 319 th/mm3 (150-450); Red Blood Count 3.54 mil/mm3 (4.50-5.90); Red Cell Distribution Width 15.4 % (11.6-17.2); White Blood Count 36.5 th/mm3 (4.0-11.0)
[2018-01-02] MEDS ORDERED: Sod Chloride 0.9% Inj 1,000 ML IV.SIG ONE ×2 (14:43→14:46)
--- NOTE | 2018-01-02 14:54 | CT ---
EXAM DATE: 01/02/2018 2:50 PM EDT AGE/SEX: 87 years / Male INDICATIONS: Altered mental status, hypotensive CLINICAL DATA: This is the patient's initial encounter. Patient reports that signs and symptoms have been present for 1 day and indicates a pain score of Nonresponsive. MEDICAL/SURGICAL HISTORY: Cardiovascular disease. Renal failure, acute. Asthma. prostate neoplas m None. RADIATION DOSE: 56.35 CTDI (mGy) COMPARISON: [facility] – [place] BRAIN W/O CONTRAST, 10/17/2017. . TECHNIQUE: CT of the head without contrast. Using automated exposure control and adjustment of the mA and/or kV according to patient size, radiation dose was kept as low as reasonably achievable to ob tain optimal diagnostic quality images. DICOM format image data is available electronically for revi ew and comparison. FINDINGS: There are no signs of acute infarct, hemorrhage, or mass. 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 The osseous structures are intact. CONCLUSION: 1. Stable appearance of the brain. . Electronically signed by: Shane Pro MD 01/02/2018 2:53 PM EDT
[2018-01-02 14:57] LABS: Alanine Aminotransferase 11 U/L (12-78); Albumin 2.2 g/dL (3.4-5.0); Anion Gap 10 meq/L (5-15); Aspartate Aminotransferase 24 U/L (15-37); Blood Urea Nitrogen 29 mg/dL (7-18); Calcium 7.6 mg/dL (8.5-10.1); Carbon Dioxide 24.5 meq/L (21.0-32.0); Chloride 108 meq/L (98-107); Glomerular Filtration Rate 34 mL/min (>89); Glucose,Random 149 mg/dL (74-106); Potassium 4.2 meq/L (3.5-5.1); Sodium 142 meq/L (136-145)
[2018-01-02 15:06] LABS: Alkaline Phosphatase 76 U/L (45-117); Total Protein 6.8 g/dL (6.4-8.2); Troponin I 0.13 ng/mL (0.02-0.05)
[2018-01-02 15:14] LABS: Bacteria,Urine Occasional /hpf; Bilirubin,Urine Negative (Negative); Clarity,Urine Cloudy (Clear); Color,Urine Amber (Yellw/Straw); Glucose,Urine (UA) Negative (Negative); Leukocyte Esterase,Urine Large (Negative); Nitrite,Urine Negative (Negative); Specific Gravity,Urine 1.017 (1.002-1.035)
--- NOTE | 2018-01-02 15:41 | XR ---
EXAM DATE: 01/02/2018 3:29 PM EDT AGE/SEX: 87 years / Male INDICATIONS: Shortness of breath, vomiting, and diarrhea. CLINICAL DATA: This is the patient's initial encounter. Patient reports that signs and symptoms have been present for 3 days and indicates a pain score of Nonresponsive. MEDICAL/SURGICAL HISTORY: . Seizures. TIA. Hypertension. COPD. Asthma. Non-responsive. COMPARISON: [facility] – [place], 10/27/2017. . FINDINGS: The cardiac silhouette is enlarged in transverse diameter. The aortic knob is prominent with tortuosi ty of the descending thoracic aorta. There is prominence of the central pulmonary vasculature with i ndistinct vascular margins compatible with vascular congestion but no evidence of overt failure. No p leural effusions are identified. There is subsegmental atelectasis in the both bases. CONCLUSION: Cardiomegaly and findings of vascular congestion without overt failure. Electronically signed by: Nickolas Donaldson MD 01/02/2018 3:40 PM EDT
[2018-01-02 15:53] LABS: Eosinophils 1 % (0-4); Lymphocytes 6 % (9-44); Monocytes 5 % (0-8)
[2018-01-02 15:54] LABS: Platelet Estimate Normal (Normal)
[2018-01-02] MEDS ORDERED: Acetaminophen 325 MG Tablet PO PRN (15:55)
[2018-01-02] MEDS ORDERED: Sod Chloride 0.9% Inj 1,000 ML IV.CONT SCH (16:00)
[2018-01-02] MEDS ORDERED: Piperacil/Tazo 3.375 GM Premix 50 ML IV.SIG SCH (16:45)
--- NOTE | 2018-01-02 16:51 | P.HPIM ---
History of Present Illness Primary Care Physician: Julio Ambrocio MD Chief Complaint: Altered mental status History of Present Illness: This is an 87-year-old male with history of dementia, prostate cancer, hypertension, dyslipidemia, TIA, COPD, GERD, seizures presenting to the emergency department from long-term facility for altered mental status. Patient is lethargic/somnolent, cannot answer any questions, poor historian. Per patient's global supply chain director Yady, patient has been in his usual state of health until this morning when patient was found to be completely lethargic and somnolent, can answer any questions or follow any commands. Usually, patient is able to follow some commands, answers questions, eats and easily arousable. Per global supply chain director, during the past few weeks, patient was treated for urinary tract infection and has completed antibiotics. He has also been coughing in the last 1-2 weeks, chest x-ray was apparently done in the long term and was allegedly unremarkable. Per caregiver, patient's stools are usually loose but has been solid in the last few days. Patient is a DNR/DNI sheet from the long term. Of note, patient has a history of C. difficile. Family history and past surgical history cannot be obtained because of patient' s mental status. Inpatient Certification: I certify that the inpatient services were ordered in accordance with Medicare regulations governing the order. This includes certification that hospital inpatient services are reasonable and necessary and in the case of services not specified as inpatient-only under 42 CFR 419.22(n), that they are appropriately provided as inpatient services in accordance to with the 2-midnight benchmark under 43 CFR 412.3(e) Estimated Total Length of Stay (Days): 5 Plans for Post Hospital Care: SNF Review of Systems All other pertinent systems were reviewed and are negative. PMFSH - History History Provided By: Patient - Medical History Medical History: Medical History (Last Reviewed 01/02/18 @ 14:09 by Shankar Louis) Acute renal failure Asthma Atherosclerotic cardiovascular disease Enterocolitis due to Clostridium difficile Generalized anxiety disorder Neoplasm of prostate Paroxysmal A-fib Urinary tract infection - Tobacco History Smoking Status: Unknown if ever smoked - Alcohol History How Often Do You Have a Drink Containing Alcohol: Unable to Obtain - Substance Use History Substance History: Unable to Obtain - Immunization History Tetanus Immunization: Unsure Hx Influenza Vaccine This Season: Unable to Assess Medications and Allergies Active Medications: Active Medications Acetaminophen (Tylenol) 650 mg PO Q4H PRN PRN Reason: Temp > 100.4 Sodium Chloride (Ns Inj) 1,000 mls @ 100 mls/hr IV.CONT .Q10H LARISA Stop: 01/03/18 01:59 Piperacillin/Tazobactam/Dextrose (Zosyn 3.375 Gm Premix) 50 mls @ 100 mls/hr IV.SIG Q6H LARISA Ondansetron HCl (Zofran Odt) 4 mg PO Q6H PRN PRN Reason: NAUSEA OR VOMITING Sodium Chloride (Ns Flush) 2 ml IV.FLUSH PRN PRN PRN Reason: FLUSH AFTER USING IV ACCESS Allergies Allergy/AdvReac Type Severity Reaction Status Date / Time amoxicillin Allergy Severe Shortness Unverified 10/17/17 10:21 of Breath clavulanic acid Allergy Severe Shortness Unverified 10/17/17 10:21 of Breath imipramine Allergy Severe SEIZURE Unverified 10/17/17 10:21 primidone Allergy Severe SEIZURE Unverified 10/17/17 10:21 Sulfa (Sulfonamide Allergy Unknown Rash Unverified 10/17/17 10:21 Antibiotics) Home Medications Medication Instructions Recorded Confirmed Type acetaminophen [Tylenol] 650 mg PO Q6H PRN 01/02/18 01/02/18 History albuterol sulfate [Ventolin HFA] 2 puff INHALATION Q8HR PRN 01/02/18 01/02/18 History alendronate [Fosamax] 70 mg PO QWEEK 01/02/18 01/02/18 History atorvastatin [Lipitor] 20 mg PO HS 01/02/18 01/02/18 History calcium carbonate-vitamin D3 1 tab PO DAILY 01/02/18 01/02/18 History [Calcium 600 + D(3)] carbamazepine [Tegretol] 200 mg PO BID 01/02/18 01/02/18 History clopidogrel [Plavix] 75 mg PO DAILY 01/02/18 01/02/18 History docusate sodium [Colace] 100 mg PO Q12HR PRN 01/02/18 01/02/18 History ferrous sulfate 325 mg PO TIDPC 01/02/18 01/02/18 History fluticasone [Flonase Allergy 1 spray INTRANASAL DAILY 01/02/18 01/02/18 History Relief] fluticasone-vilanterol [Breo 1 inh INHALATION DAILY 01/02/18 01/02/18 History Ellipta] food supplemt, lactose-reduced 240 ml PO BID 01/02/18 01/02/18 History [Boost] furosemide [Lasix] 10 mg PO DAILY 01/02/18 01/02/18 History gabapentin 300 mg PO BID 01/02/18 01/02/18 History ipratropium-albuterol 3 ml INHALATION Q4HR PRN 01/02/18 01/02/18 History levetiracetam [Keppra] 500 mg PO TID 01/02/18 01/02/18 History levothyroxine 50 mcg PO DAILY 01/02/18 01/02/18 History lisinopril 5 mg PO DAILY 01/02/18 01/02/18 History mirabegron [Myrbetriq] 50 mg PO DAILY 01/02/18 01/02/18 History mirtazapine [Remeron] 15 mg PO DAILY 01/02/18 01/02/18 History montelukast [Singulair] 10 mg PO HS 01/02/18 01/02/18 History multivitamin with minerals 1 tab PO DAILY 01/02/18 01/02/18 History pantoprazole [Protonix] 40 mg PO DAILY 01/02/18 01/02/18 History prochlorperazine maleate 10 mg PO Q8HR PRN 01/02/18 01/02/18 History propranolol 10 mg PO Q12HR 01/02/18 01/02/18 History pyridoxine (vitamin B6) 50 mg PO DAILY 01/02/18 01/02/18 History ranitidine HCl [Zantac] 300 mg PO DAILY 01/02/18 01/02/18 History sertraline [Zoloft] 25 mg PO DAILY 01/02/18 01/02/18 History zinc oxide 1 applic TOPICAL Q8HR 01/02/18 01/02/18 History Exam Vital signs: Vital Signs 01/02/18 13:55 01/02/18 14:14 01/02/18 14:44 Temperature 103.5 F H 103.5 F H Pulse Rate 91 H 90 90 Respiratory Rate 18 16 Blood Pressure 72/35 L Pulse Oximetry 93 L 97 97 01/02/18 15:14 01/02/18 15:27 01/02/18 15:56 Temperature Pulse Rate 92 H 96 H Respiratory Rate 19 16 Blood Pressure 87/42 L 87/48 L Pulse Oximetry 89 L 89 L 94 L Intake & Output 01/01/18 01/02/18 01/02/18 18:59 06:59 18:59 Weight 56.699 kg Narrative: In respiratory distress, mild, nonverbal. PERRL, pink conjunctiva without injection, anicteric Nose without bleeding, airway patent Supple neck, no masses or thyromegaly Normal rate and regular rhythm Coarse crackles bilaterally, no wheezing. Normal bowel sounds, soft, non-tender, mildly distended, no guarding. Extremities without clubbing, cyanosis, or edema. Somnolent, does not follow any commands, nonverbal. Results - Labs CBC & Chem 7: 01/02/18 14:01 01/02/18 14:01 Labs: Short CBC 01/02/18 Range/Units 14:01 WBC 36.5 H (4.0-11.0) th/mm3 Hgb 10.8 L (13.0-17.0) gm/dL Hct 33.3 L (39.0-51.0) % Plt Count 319 (150-450) th/mm3 BMP 01/02/18 14:01 Sodium 142 Potassium 4.2 Chloride 108 H Carbon Dioxide 24.5 BUN 29 H Creatinine 1.89 H Calcium 7.6 L Cardiac Enzymes 01/02/18 Range/Units 14:01 Troponin I 0.13 H (0.02-0.05) ng/mL Liver Function 01/02/18 Range/Units 14:01 Total Bilirubin 0.4 (0.2-1.0) mg/dL AST 24 (15-37) U/L ALT 11 L (12-78) U/L Alkaline Phosphatase 76 (45-117) U/L Albumin 2.2 L (3.4-5.0) g/dL Urine 01/02/18 Range/Units 14:30 Urine Color Fern (Yellw/Straw) Urine Clarity Cloudy H (Clear) Urine pH 5.0 (5.0-8.5) Ur Specific [place] 1.017 (1.002-1.035) Urine Protein Negative (Neg-Trace) mg/dL Urine Glucose (UA) Negative (Negative) mg/dL - Imaging Impressions Chest X-Ray 01/02/18 13:58 CONCLUSION: Cardiomegaly and findings of vascular congestion without overt failure. Head CT 01/02/18 13:58 CONCLUSION: 1. Stable appearance of the brain. . Caprini VTE Risk Assessment Caprini VTE Risk Assessment: Moderate/High Risk (score >= 2) Caprini Risk Assessment Model: Point Value = 1 Point Value = 2 Point Value = 3 Point Value = 5 Age 41-60 Minor surgery BMI > 25 kg/m2 Swollen legs Varicose veins or History of unexplained or recurrent spontaneous Oral contraceptives or hormone replacement Sepsis (< 1 month) Serious lung disease, including pneumonia (< 1 month) Abnormal pulmonary function Acute myocardial infarction Congestive heart failure (< 1 month) History of inflammatory bowel disease Medical patient at bed rest Age 61-74 Arthroscopic surgery Major open surgery (> 45 min) Laparoscopic surgery (> 45 min) Malignancy Confined to bed (> 72 hours) Immobilizing plaster cast Central venous access Age >= 75 History of VTE Family history of VTE Factor V Leiden Prothrombin [id number] Lupus anticoagulant Anticardiolipin antibodies Elevated serum homocysteine Heparin-induced thrombocytopenia Other congenital or acquired thrombophilia Stroke (< 1 month) Elective arthroplasty Hip, pelvis, or leg fracture Acute spinal cord injury (< 1 month) Prophylaxis Regimen: Total Risk Factor Score Risk Level Prophylaxis Regimen 0-1 Low Early ambulation 2 Moderate Order ONE of the following: *Sequential Compression Device (SCD) *Heparin 5000 units SQ BID 3-4 Higher Order ONE of the following medications: *Heparin 5000 units SQ TID *Enoxaparin/Lovenox 40 mg SQ daily (WT < 150 kg, CrCl > 30 mL/min) *Enoxaparin/Lovenox 30 mg SQ daily (WT < 150 kg, CrCl > 10-29 mL/min) *Enoxaparin/Lovenox 30 mg SQ BID (WT < 150 kg, CrCl > 30 mL/min) AND/OR *Sequential Compression Device (SCD) 5 or more Highest Order ONE of the following medications: *Heparin 5000 units SQ TID (Preferred with Epidurals) *Enoxaparin/Lovenox 40 mg SQ daily (WT < 150 kg, CrCl > 30 mL/min) *Enoxaparin/Lovenox 30 mg SQ daily (WT < 150 kg, CrCl > 10-29 mL/min) *Enoxaparin/Lovenox 30 mg SQ BID (WT < 150 kg, CrCl > 30 mL/min) AND *Sequential Compression Device (SCD) Assessment and Plan - Plan This is an 87-year-old male with history of hypertension, TIA, COPD, GERD, seizures, prostate cancer, dementia presenting from the long term with altered mental status Altered mental status likely toxic metabolic encephalopathy from severe sepsis- supportive management Severe sepsis-patient has a fever of 103, hypotensive, lactic acidosis, leukocytosis of 36.5, with neutrophilic predominance and bandemia, possible source: UTI versus C. difficile. Start Zosyn, start Flagyl, continue IVF, status post 2.5 L of normal saline, check lactic acid serially, follow-up blood culture and urine culture. Urinalysis is positive. Chest x-ray showed pulmonary congestion. Follow-up C. difficile assay. Admit in the ICU, if still hypotensive after third liter of normal saline, will start vasopressors. Hypoxic respiratory failure-congestive heart failure based on exam and chest x- ray, however patient needs fluids because of hypotension, continue normal saline. Patient is a DNR/DNI order. Continue oxygen support. Acute renal failure-baseline creatinine is within normal limits, now at 1.89, could be from cardiorenal from congestive heart failure versus secondary to sepsis. Normal saline as above. Troponin elevation-likely secondary to sepsis, EKG showed sinus rhythm, right bundle branch block, repeat EKG and troponin. DVT prophylaxis: Heparin DNR/DNI Discussed with patient's global supply chain director Yady Correa critical care time was 35 minutes spent at bedside or in the hospital noriega. Time to perform other separately billable procedures was not included in the critical care time. My time did not include minutes spent treating any other patients simultaneously or on activities that did not directly contribute to the patient's treatment. The services I provided to this patient were to treat and/or prevent clinically significant deterioration that could result in: organ failure, , disability or imminent clinical deterioration in the patient's condition. I provided critical care services requiring my management, as noted below: chart data review, documentation time, medication orders and management, vital sign assessments/reviewing monitor data, ordering and reviewing lab tests, ordering and interpreting/reviewing x-rays and diagnostic studies, care of the patient and discussion with other physicians and caregivers as needed.
[2018-01-02] MEDS ORDERED: Vancomycin Consult Pharmacy 1 EACH OTHER SCH (18:00)
[2018-01-02] MEDS ORDERED: Vancomycin Inj 1 GM/200 ML PIGGYBACK IV.SIG SCH (18:00)
[2018-01-02] MEDS ORDERED: Vancomycin Inj 1,000 MG in Sodium Chlor 0.9% Inj 250 ML IV.SIG ONE (18:00)
[2018-01-02] MEDS ORDERED: Heparin - SQ 10,000 UNITS/ML Vial SQ SCH (21:00)
--- NOTE | 2018-01-02 22:46 | XR ---
EXAM DATE: 01/02/2018 10:33 PM EDT AGE/SEX: 87 years / Male INDICATIONS: Shortness of breath and congestion. CLINICAL DATA: This is the patient's initial encounter. Patient reports that signs and symptoms have been present for 1 day and indicates a pain score of Nonresponsive. MEDICAL/SURGICAL HISTORY: Non-responsive. Non-responsive. [place] [facility] [place]. . FINDINGS: There is a right-sided pleural effusion and basilar airspace disease. Also mild left basilar airspace disease. No pneumothorax. Heart size enlarged. CONCLUSION: Cardiomegaly with right pleural effusion and mild basilar airspace disease. Findings may represent mi ld congestive heart failure. Electronically signed by: Gustavo Taylor MD 01/02/2018 10:45 PM EDT
[2018-01-03 04:39] VITALS: PULSE 84; RESP 28
[2018-01-03 04:39] LABS: Albumin 1.9 g/dL (3.4-5.0); Calcium 7.4 mg/dL (8.5-10.1); Carbon Dioxide 19.9 meq/L (21.0-32.0); Potassium 4.7 meq/L (3.5-5.1)
[2018-01-03 04:43] LABS: Total Protein 6.5 g/dL (6.4-8.2)
[2018-01-03 04:47] LABS: Troponin I 0.76 ng/mL (0.02-0.05)
[2018-01-03 05:29] VITALS: BP 106/70; TEMP 100.6; O2SAT 77
--- NOTE | 2018-01-03 09:04 | P.DN ---
Discharge Sum: Prov - Provider Primary care physician: Julio Ambrocio MD Admitting clinician: Brian Acosta Attending physician on admission: Brian Acosta Consults: 01/03/18 04:29 Consult to Palliative Care Routine Consulting Provider: Shona Hernandez Reason for Consultation: eval for hospice, patient is a DNR/DNI in Multi organ failure Notified:: Service Spoke with:: Danielle Date Notified:: 01/03/18 Time Notified:: 04:36 Ordering Provider: CONNIE Pronouncing clinician: Alonso Buckley Discharge Sum: Diag - PCOD Cause of : Cardiac arrest Discharge Sum: Summary - Date and Time Date of admission: 01/02/18 15:55 Date of : 01/03/18 Time of : 07:30 - Summary Details: This is an 87-year-old male with history of dementia, prostate cancer, hypertension, dyslipidemia, TIA, COPD, GERD, seizures presenting to the emergency department from assisted facility for altered mental status. Patient is lethargic/somnolent, cannot answer any questions, poor historian. Per patient's change management expert Yady, patient has been in his usual state of health until this morning when patient was found to be completely lethargic and somnolent, can answer any questions or follow any commands. Usually, patient is able to follow some commands, answers questions, eats and easily arousable. Per change management expert, during the past few weeks, patient was treated for urinary tract infection and has completed antibiotics. He has also been coughing in the last 1-2 weeks, chest x-ray was apparently done in the skilled nursing and was allegedly unremarkable. Per caregiver, patient's stools are usually loose but has been solid in the last few days. Patient is a DNR/DNI sheet from the skilled nursing. Of note, patient has a history of C. difficile. Family history and past surgical history cannot be obtained because of patient' s mental status. This is an 87-year-old male with history of hypertension, TIA, COPD, GERD, seizures, prostate cancer, dementia presenting from the skilled nursing with altered mental status Altered mental status likely toxic metabolic encephalopathy from severe sepsis- supportive management Severe sepsis-patient has a fever of 103, hypotensive, lactic acidosis, leukocytosis of 36.5, with neutrophilic predominance and bandemia, possible source: UTI versus C. difficile. Start Zosyn, start Flagyl, continue IVF, status post 2.5 L of normal saline, check lactic acid serially, follow-up blood culture and urine culture. Urinalysis is positive. Chest x-ray showed pulmonary congestion. Follow-up C. difficile assay. Admit in the ICU, if still hypotensive after third liter of normal saline, will start vasopressors. Hypoxic respiratory failure-congestive heart failure based on exam and chest x- ray, however patient needs fluids because of hypotension, continue normal saline. Patient is a DNR/DNI order. Continue oxygen support. Acute renal failure-baseline creatinine is within normal limits, now at 1.89, could be from cardiorenal from congestive heart failure versus secondary to sepsis. Normal saline as above. Troponin elevation-likely secondary to sepsis, EKG showed sinus rhythm, right bundle branch block, repeat EKG and troponin. DVT prophylaxis: Heparin DNR/DNI patient was pronounced by salon/spa manager AT 7:30 - Additional Data Confirmation of as documented by pronouncing clinician: no pulse, no respirations, no heart sounds, pupils fixed and dilated Attending/PCP notified?: Yes Attending physician: Alonso Buckley, DO Was code activated?: No Autopsy requested?: No hand cloth examiner notified?: No Organ bank notified?: No Advance directives: Yes Hospice patient?: No
--- NOTE | 2018-01-03 09:05 | P.DS ---
Date of admission: 01/02/18 15:55 Primary care physician: Julio Ambrocio MD Attending physician on discharge: Alonso Buckley Anticipated date of discharge: 01/03/18 Brief History from admission: This is an 87-year-old male with history of dementia, prostate cancer, hypertension, dyslipidemia, TIA, COPD, GERD, seizures presenting [facility] emergency department from [facility] for altered mental status. Patient is lethargic/somnolent, cannot answer any questions, poor historian. Per patient's medical lead Yady, patient has been in his usual state of health until this morning when patient was found to be completely lethargic and somnolent, can answer any questions or follow any commands. Usually, patient is able to follow some commands, answers questions, eats and easily arousable. Per medical lead, during the past few weeks, patient was treated for urinary tract infection and has completed antibiotics. He has also been coughing in the last 1-2 weeks, chest x-ray was apparently done in the snf and was allegedly unremarkable. Per caregiver, patient's stools are usually loose but has been solid in the last few days. Patient is a DNR/DNI sheet from the snf. Of note, patient has a history of C. difficile. Family history and past surgical history cannot be obtained because of patient' s mental status. DS: Diagnosis - Discharge Diagnosis (1) Acute UTI Status: Acute (2) Diarrhea Status: Acute (3) Septic shock Status: Acute DS: Summary Hospital Course: This is an 87-year-old male with history of dementia, prostate cancer, hypertension, dyslipidemia, TIA, COPD, GERD, seizures presenting to the emergency department from prison facility for altered mental status. Patient is lethargic/somnolent, cannot answer any questions, poor historian. Per patient's medical lead Yady, patient has been in his usual state of health until this morning when patient was found to be completely lethargic and somnolent, can answer any questions or follow any commands. Usually, patient is able to follow some commands, answers questions, eats and easily arousable. Per medical lead, during the past few weeks, patient was treated for urinary tract infection and has completed antibiotics. He has also been coughing in the last 1-2 weeks, chest x-ray was apparently done in the snf and was allegedly unremarkable. Per caregiver, patient's stools are usually loose but has been solid in the last few days. Patient is a DNR/DNI sheet from the snf. Of note, patient has a history of C. difficile. Family history and past surgical history cannot be obtained because of patient' s mental status. This is an 87-year-old male with history of hypertension, TIA, COPD, GERD, seizures, prostate cancer, dementia presenting from the snf with altered mental status Altered mental status likely toxic metabolic encephalopathy from severe sepsis- supportive management Severe sepsis-patient has a fever of 103, hypotensive, lactic acidosis, leukocytosis of 36.5, with neutrophilic predominance and bandemia, possible source: UTI versus C. difficile. Start Zosyn, start Flagyl, continue IVF, status post 2.5 L of normal saline, check lactic acid serially, follow-up blood culture and urine culture. Urinalysis is positive. Chest x-ray showed pulmonary congestion. Follow-up C. difficile assay. Admit in the ICU, if still hypotensive after third liter of normal saline, will start vasopressors. Hypoxic respiratory failure-congestive heart failure based on exam and chest x- ray, however patient needs fluids because of hypotension, continue normal saline. Patient is a DNR/DNI order. Continue oxygen support. Acute renal failure-baseline creatinine is within normal limits, now at 1.89, could be from cardiorenal from congestive heart failure versus secondary to sepsis. Normal saline as above. Troponin elevation-likely secondary to sepsis, EKG showed sinus rhythm, right bundle branch block, repeat EKG and troponin. DVT prophylaxis: Heparin DNR/DNI patient was pronounced by manager java AT 7:30 - Time Spent with Patient Total time spent providing and/or coordinating discharge services: Less than 30 minutes Exam Vital signs: Vital Signs 01/02/18 13:55 01/02/18 14:14 01/02/18 14:44 Temperature 103.5 F H 103.5 F H Pulse Rate 91 H 90 90 Respiratory Rate 18 16 Blood Pressure 72/35 L Pulse Oximetry 93 L 97 97 01/02/18 15:14 01/02/18 15:27 01/02/18 15:56 Temperature Pulse Rate 92 H 96 H Respiratory Rate 19 16 Blood Pressure 87/42 L 87/48 L Pulse Oximetry 89 L 89 L 94 L 01/02/18 18:45 01/02/18 20:38 01/02/18 21:42 Temperature Pulse Rate 97 H Respiratory Rate 16 Blood Pressure 124/69 Pulse Oximetry 85 L 90 L 73 L 01/02/18 22:00 01/03/18 00:20 01/03/18 03:40 Temperature 101.3 F H 101 F H 100.6 F H Pulse Rate 100 H 98 H 102 H Respiratory Rate 16 22 22 Blood Pressure 101/58 L 101/58 L 106/70 Pulse Oximetry 77 L 90 L 77 L 01/03/18 04:34 Temperature Pulse Rate 84 Respiratory Rate 28 H Blood Pressure Pulse Oximetry Intake & Output 01/02/18 01/03/18 01/03/18 18:59 06:59 18:59 Intake Total 450 / 450 Balance 450 / 450 Weight 56.699 kg 58.5 kg Intake: IV 450 / 450 Azactam Inj 1,000 MG In NS Inj 200 / 200 100 ML @ 200 mls/hr IV.SIG Q8H LARISA Rx#:[id number] Vancomycin Inj 1,000 MG In NS 250 / 250 Inj 250 ML @ 250 mls/hr IV.SIG ONCE ONE Rx#:[id number] Narrative: PATIENT PRONOUNCED Results Procedures completed during hospitalization: NONE Labs on day of discharge: Labs from last 24 hours 01/03/18 01/03/18 01/02/18 04:03 04:03 20:40 WBC RBC Hgb Hct MCV MCH MCHC RDW Plt Count MPV Prelim Diff (Auto) Neut % (Auto) Lymph % (Auto) [place] % (Auto) Eos % (Auto) Baso % (Auto) Neut # (Auto) Lymph # (Auto) [place] # (Auto) Eos # (Auto) Baso # (Auto) WBC Differential Seg Neuts % (Manual) Band Neuts % (Manual) Lymphocytes % (Manual) Monocytes % (Manual) Eosinophils % (Manual) Abs Neuts (Manual) Differential Comment Platelet Estimate Platelet Morphology Sodium 147 H Potassium 4.7 Chloride 112 H Carbon Dioxide 19.9 L Anion Gap 15 BUN 39 H Creatinine 2.99 H Estimated GFR 20 L Random Glucose 144 H Lactic Acid 6.8 H* Calcium 7.4 L* Prot Corrected Calcium 7.7 L Total Bilirubin 0.3 AST 46 H ALT 14 Alkaline Phosphatase 64 Ammonia Troponin I 0.76 H* 0.32 H B-Natriuretic Peptide Total Protein 6.5 Albumin 1.9 L TSH Urine Color Urine Clarity Urine pH Ur Specific [place] Urine Protein Urine Glucose (UA) Urine Ketones Urine Occult Blood Urine Nitrate Urine Bilirubin Urine Urobilinogen Ur Leukocyte Esterase Urine RBC Urine WBC Urine WBC Clumps Urine Bacteria Micro UA Comment Urine Culture Comments Stl C.difficile Tox PCR St C. diff Tox Epid 027 Salicylates Acetaminophen Serum Alcohol 01/02/18 01/02/18 01/02/18 16:03 14:30 14:30 WBC RBC Hgb Hct MCV MCH MCHC RDW Plt Count MPV Prelim Diff (Auto) Neut % (Auto) Lymph % (Auto) [place] % (Auto) Eos % (Auto) Baso % (Auto) Neut # (Auto) Lymph # (Auto) [place] # (Auto) Eos # (Auto) Baso # (Auto) WBC Differential Seg Neuts % (Manual) Band Neuts % (Manual) Lymphocytes % (Manual) Monocytes % (Manual) Eosinophils % (Manual) Abs Neuts (Manual) Differential Comment Platelet Estimate Platelet Morphology Sodium Potassium Chloride Carbon Dioxide Anion Gap BUN Creatinine Estimated GFR Random Glucose Lactic Acid 2.3 H Calcium Prot Corrected Calcium Total Bilirubin AST ALT Alkaline Phosphatase Ammonia Troponin I B-Natriuretic Peptide Total Protein Albumin TSH Urine Color [place] Urine Clarity Cloudy H Urine pH 5.0 Ur Specific [place] 1.017 Urine Protein Negative Urine Glucose (UA) Negative Urine Ketones Negative Urine Occult Blood Small H Urine Nitrate Negative Urine Bilirubin Negative Urine Urobilinogen Less than 2 Ur Leukocyte Esterase Large H Urine RBC 1 Urine WBC 67 H Urine WBC Clumps Moderate H Urine Bacteria Occasional H Micro UA Comment Cath-culture ind Urine Culture Comments Cath-cult indicated Stl C.difficile Tox PCR Positive H St C. diff Tox Epid 027 Positive H Salicylates Acetaminophen Serum Alcohol 01/02/18 01/02/18 01/02/18 14:01 14:01 14:01 WBC RBC Hgb Hct MCV MCH MCHC RDW Plt Count MPV Prelim Diff (Auto) Neut % (Auto) Lymph % (Auto) [place] % (Auto) Eos % (Auto) Baso % (Auto) Neut # (Auto) Lymph # (Auto) [place] # (Auto) Eos # (Auto) Baso # (Auto) WBC Differential Seg Neuts % (Manual) Band Neuts % (Manual) Lymphocytes % (Manual) Monocytes % (Manual) Eosinophils % (Manual) Abs Neuts (Manual) Differential Comment Platelet Estimate Platelet Morphology Sodium Potassium Chloride Carbon Dioxide Anion Gap BUN Creatinine Estimated GFR Random Glucose Lactic Acid Calcium Prot Corrected Calcium Total Bilirubin AST ALT Alkaline Phosphatase Ammonia 21 Troponin I B-Natriuretic Peptide 1403 H Total Protein Albumin TSH Urine Color Urine Clarity Urine pH Ur Specific [place] Urine Protein Urine Glucose (UA) Urine Ketones Urine Occult Blood Urine Nitrate Urine Bilirubin Urine Urobilinogen Ur Leukocyte Esterase Urine RBC Urine WBC Urine WBC Clumps Urine Bacteria Micro UA Comment Urine Culture Comments Stl C.difficile Tox PCR St C. diff Tox Epid 027 Salicylates Acetaminophen Less than 2.0 L Serum Alcohol 01/02/18 01/02/18 01/02/18 14:01 14:01 14:01 WBC RBC Hgb Hct MCV MCH MCHC RDW Plt Count MPV Prelim Diff (Auto) Neut % (Auto) Lymph % (Auto) [place] % (Auto) Eos % (Auto) Baso % (Auto) Neut # (Auto) Lymph # (Auto) [place] # (Auto) Eos # (Auto) Baso # (Auto) WBC Differential Seg Neuts % (Manual) Band Neuts % (Manual) Lymphocytes % (Manual) Monocytes % (Manual) Eosinophils % (Manual) Abs Neuts (Manual) Differential Comment Platelet Estimate Platelet Morphology Sodium 142 Potassium 4.2 Chloride 108 H Carbon Dioxide 24.5 Anion Gap 10 BUN 29 H Creatinine 1.89 H Estimated GFR 34 L Random Glucose 149 H Lactic Acid 2.5 H Calcium 7.6 L Prot Corrected Calcium Total Bilirubin 0.4 AST 24 ALT 11 L Alkaline Phosphatase 76 Ammonia Troponin I 0.13 H B-Natriuretic Peptide Total Protein 6.8 Albumin 2.2 L TSH 5.350 H Urine Color Urine Clarity Urine pH Ur Specific [place] Urine Protein Urine Glucose (UA) Urine Ketones Urine Occult Blood Urine Nitrate Urine Bilirubin Urine Urobilinogen Ur Leukocyte Esterase Urine RBC Urine WBC Urine WBC Clumps Urine Bacteria Micro UA Comment Urine Culture Comments Stl C.difficile Tox PCR St C. diff Tox Epid 027 Salicylates Less than 1.7 L Acetaminophen Serum Alcohol Less than 3 01/02/18 14:01 WBC 36.5 H RBC 3.54 L Hgb 10.8 L Hct 33.3 L MCV 94.1 MCH 30.5 MCHC 32.5 RDW 15.4 Plt Count 319 MPV 9.0 Prelim Diff (Auto) Slide review pending Neut % (Auto) 83.7 H Lymph % (Auto) 7.4 L [place] % (Auto) 8.8 H Eos % (Auto) 0.0 Baso % (Auto) 0.1 Neut # (Auto) 30.6 H Lymph # (Auto) 2.7 [place] # (Auto) 3.2 H Eos # (Auto) 0.0 Baso # (Auto) 0.0 WBC Differential Manual diff final Seg Neuts % (Manual) 68 Band Neuts % (Manual) 20 H Lymphocytes % (Manual) 6 L Monocytes % (Manual) 5 Eosinophils % (Manual) 1 Abs Neuts (Manual) 32.1 H Differential Comment . Platelet Estimate Normal Platelet Morphology Enlarged H Sodium Potassium Chloride Carbon Dioxide Anion Gap BUN Creatinine Estimated GFR Random Glucose Lactic Acid Calcium Prot Corrected Calcium Total Bilirubin AST ALT Alkaline Phosphatase Ammonia Troponin I B-Natriuretic Peptide Total Protein Albumin TSH Urine Color Urine Clarity Urine pH Ur Specific [place] Urine Protein Urine Glucose (UA) Urine Ketones Urine Occult Blood Urine Nitrate Urine Bilirubin Urine Urobilinogen Ur Leukocyte Esterase Urine RBC Urine WBC Urine WBC Clumps Urine Bacteria Micro UA Comment Urine Culture Comments Stl C.difficile Tox PCR St C. diff Tox Epid 027 Salicylates Acetaminophen Serum Alcohol - Impressions ITS Impressions Chest X-Ray 01/02/18 13:58 CONCLUSION: Cardiomegaly and findings of vascular congestion without overt failure. Head CT 01/02/18 13:58 CONCLUSION: 1. Stable appearance of the brain. . Discharge Plan - Discharge Disposition Patient Disposition: 20 - Discharge Details Anticipated Discharge Date: 01/03/18 Discharge Comment: Date/Time: 01/03/18 07:30 - Physicians Team Primary Care Provider: Julio Ambrocio V Attending Provider: Alonso Buckley Other Providers: Shona Hernandez MD
--- NOTE | 2018-01-03 10:21 | ECG ---
Date Performed: 01/02/2018 Time Performed: 14:03:23 PTAGE: 87 years EKG: Sinus rhythm MARKED RIGHT AXIS DEVIATION RIGHT BUNDLE BRANCH BLOCK MODERATE T-WAVE ABNORMALITY, CONSIDER ANTEROLA TERAL ISCHEMIA MODERATE T-WAVE ABNORMALITY, CONSIDER INFERIOR ISCHEMIA ABNORMAL ECG Compared to PREVIOUS TRACING the patient is back in sinus rhythm PREVIOUS TRACIN10/20/2017 21.48 DOCTOR: Amy Salas Interpretating Date/Time 01/03/2018 10:19:14
--- NOTE | 2018-01-03 17:06 | ECG ---
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
--- NOTE | 2018-01-03 17:15 | ECG ---
Date Performed: 01/03/2018 Time Performed: 01:01:54 PTAGE: 87 years EKG: Atrial fibrillation Left axis deviation RBBB with left anterior fascicular block Inferior i nfarct - age undetermined Anterior infarct - age undetermined Lateral T wave changes may be due to my ocardial ischemia Abnormal ECG Since the PREVIOUS TRACING , no significant change noted PREVIOUS TRACIN01/02/2018 14.03 DOCTOR: Amy Salas Interpretating Date/Time 01/03/2018 17:14:16
--- NOTE | 2018-01-03 17:28 | ECG ---
Date Performed: 01/02/2018 Time Performed: 20:43:57 PTAGE: 87 years EKG: Sinus rhythm WITH OCCASIONAL SUPRAVENTRICULAR PREMATURE COMPLEXES MARKED RIGHT AXIS DEVIATION RIGHT BUNDLE BRANCH BLOCK ANTERIOR MYOCARDIAL INFARCTION INFERIOR MYOCARDIAL INFARCTION MODERATE T-WAVE ABNORMALITY, CON ENTRY LEVEL MARKETING ASSISTANT LATERAL ISCHEMIA ABNORMAL ECG ARTIFACT Since the PREVIOUS TRACING , likely no significant change noted DOCTOR: Amy Salas Interpretating Date/Time 01/03/2018 17:28:17
== END 2018-01-03 10:26 | disposition expired ==
LOC: NEPC 13:52 → NEDA 15:55 → HCIS 21:07
PROVIDERS: ADMIT Hospitalist; ATTEND Hospitalist